=== PATIENT | female | born 1940 | race Caucasian/White ===

== ENCOUNTER → 2017-10-13 10:22 | Outpatient (CLI) | payer MEDICARE, SELFPAY ==
--- NOTE | 2017-10-13 10:25 | HPBD_ITS ---
STUDY: DUAL ENERGY X-RAY ABSORPTIOMETRY / DXA REASON FOR EXAM: Female, 77 years old. The patient is postmenopausal. Loss of height of 4 inches. TECHNIQUE: Bone Mineral Density (BMD) measurements of lumbar spine and bilateral hips were obtained. COMPARISON: None. FINDINGS: Lumbar Spine (L1-L4): g/cm2 (1.293) / T-score (0.8) / Z-score (2.6) Findings are suggestive of normal bone density with a low fracture risk. Left Femur Total: g/cm2 (0.986) / T-score (-0.2) / Z-score (1.7) Left Femoral Neck: g/cm2 (1.009) / T-score (-0.2) / Z-score (1.8) Right Femur Total: g/cm2 (1.005) / T-score (0.0) / Z-score (1.8) Right Femoral Neck: g/cm2 (0.970) / T-score (-0.5) / Z-score (1.5) HPBD/Dexa Bone Density Study (HP) IMPRESSION: The patient is considered normal as outlined below according to World Luis Organization (WHO) criteria with a low fracture risk. Reference Information: The T-score is the number of standard deviations above or below the standard which is normal for young adults at their peak bone mineral density. The World Health Organization (WHO) interprets the T-scores as follows: Above -1 Normal bone density Between -1 and -2.5 Osteopenia Equal to / or below -2.5 Osteoporosis As a practical clinical guideline, osteopenia may be graded as follows: Mild -1 through -1.5 Moderate -1.6 through -2.0 Severe -2.1 through -2.4 The Z-score is the number of standard deviations above or below age-matched controls. A Z-score of less than -1.5 would be considered abnormal. References: 1. NIH Osteoporosis and Related Bone Diseases http://www.osteo.org 2. International Society for Clinical Densitometry http://www.iscd.org 3. National Osteoporosis Foundation http://www.nof.org Electronically Signed: Raf Torres MD at 15:21 EST Tel [phone], Service support ,
== END ==
PROVIDERS: Family Provider Family Medicine Geriatric Medicine; PCP Family Medicine Geriatric Medicine; Visit Provider Family Medicine Geriatric Medicine
DX: Z78.0 Asymptomatic menopausal state (principal)
CPT/HCPCS: 77080

== ENCOUNTER → 2017-11-01 14:43 | Outpatient (CLI) | payer MEDICARE, SELFPAY ==
[2017-11-01 17:31] LABS: Absolute Neutrophil Count 4.5 X10^3/uL (2.0-7.7); Basophil# 0.02 X10^3/uL; Basophil% 0.3 % (0-1); Eosinophil# 0.07 X10^3/uL; Eosinophils% 1.1 % (0-5); Hematocrit 38.1 % (37-47); Hemoglobin 12.2 g/dl (12.0-15.0); Lymphocyte % 19.3 % (19-41); Mean Corpuscular Hgb 30.3 pg (27.0-32.0); Mean Corpuscular Volume 94.8 fL (81-99); Mean Platelet Vol. 10.3 fl (6.2-12.0); Monocyte# 0.44 X10^3/uL; Monocyte% 7.1 % (0-10); Neutrophil # 4.46 X10^3/uL (2.7-7.7); Neutrophil % 71.9 % (47-70); Platelet Count 295 K/mm3 (150-450); RBC Distribution Width CV 14.2 % (11.6-14.6); RBC Distribution Width SD 47.8 fl (35.1-43.9); Red Blood Count 4.02 M/mm3 (4.2-5.4); White Blood Count 6.2 K/mm3 (4.4-11.0)
[2017-11-01 17:45] LABS: POSITIVE COUNT NO; POSITIVE DIFFERENTIAL NO; POSITIVE MORPHOLOGY NO
[2017-11-01 17:46] LABS: Vitamin D,25 Hydroxy 35.5 ng/mL (29.95-100.01)
[2017-11-01 17:49] LABS: ALB/GLOB Ratio 0.9 RATIO (0.9-2.4); AST(SGOT) 24 U/L (15-37); Alanine Aminotransfer ALT/SGPT 31 U/L (13-56); Albumin, Serum 3.4 g/dL (3.2-5.0); Alkaline Phosphatase 76 U/L (45-117); Anion Gap 9 (5-15); BUN 16 mg/dL (7-18); Calcium,Total 8.7 mg/dL (8.5-10.1); Chloride 102 mmol/L (98-107); Creatinine, Serum 0.64 mg/dL (0.55-1.02); EST Glomerular Filtration Rate 96 mL/min (>60); Est Glom Filt Rate - Afr Amer 116 mL/min (>60); Globulin 3.6 g/dL (2.2-4.2); Glucose 102 mg/dL (74-106); Potassium 4.7 mmol/L (3.5-5.1); Sodium Level 138 mmol/L (136-145)
== END ==
PROVIDERS: Family Provider Family Medicine Geriatric Medicine; PCP Family Medicine Geriatric Medicine; Visit Provider Family Medicine Geriatric Medicine
DX: I10 Essential (primary) hypertension (principal); E55.9 Vitamin D deficiency, unspecified
CPT/HCPCS: 80053; 82306; 84443; 85025

== ENCOUNTER → 2017-11-09 15:18 | Outpatient (CLI) | payer MEDICARE, SELFPAY ==
--- NOTE | 2017-11-09 15:25 | RAD_ITS ---
STUDY: X-RAY - ABDOMEN/PELVIS REASON FOR EXAM: Female, 77 years old. DIARRHEA TECHNIQUE: AP supine and upright views of the abdomen and pelvis. COMPARISON: None. FINDINGS: Normal visualized lung bases. There are multiple metallic clips in the right upper quadrant. This is consistent for a cholecystectomy. Degenerative findings of the hips. There is a moderate amount of colonic fecal material. There is no demonstrated free abdominal air. The visualized liver, spleen and kidneys are grossly normal in size and morphology. Normal soft tissue structures. There are diffuse degenerative changes of the visualized lumbar spine. RAD/Abd Inc Decub and/or Erect IMPRESSION: Constipation. Degenerative findings of the hips. Electronically Signed: Juve Ferreira MD at 16:01 EDT , Service support ,
== END ==
PROVIDERS: Family Provider Family Medicine Geriatric Medicine; PCP Family Medicine Geriatric Medicine; Visit Provider Family Medicine Geriatric Medicine
DX: R19.7 Diarrhea, unspecified (principal); R68.83 Chills (without fever)
CPT/HCPCS: 74019; 87633

== ENCOUNTER → 2018-04-25 14:59 | Outpatient (CLI) | payer MEDICARE, SELFPAY ==
[2018-04-25 16:18] LABS: Absolute Lymphocyte Count 1.18 X10^3/ul (0.83-4.51); Absolute Neutrophil Count 3.3 X10^3/uL (2.0-7.7); Basophil# 0.03 X10^3/uL; Basophil% 0.6 % (0-1); Eosinophil# 0.11 X10^3/uL; Eosinophils% 2.2 % (0-5); Hematocrit 34.5 % (37-47); Lymphocyte # 1.18 X10^3/ul (4.0); Lymphocyte % 23.3 % (19-41); Mean Corp Hgb Conc 31.9 g/gl (32-36); Mean Corpuscular Hgb 28.1 pg (27.0-32.0); Mean Corpuscular Volume 88.2 fL (81-99); Mean Platelet Vol. 10.4 fl (6.2-12.0); Monocyte# 0.44 X10^3/uL; Monocyte% 8.7 % (0-10); Neutrophil # 3.29 X10^3/uL (2.7-7.7); Platelet Count 265 K/mm3 (150-450); RBC Distribution Width CV 15.1 % (11.6-14.6); RBC Distribution Width SD 48.4 fl (35.1-43.9); Red Blood Count 3.91 M/mm3 (4.2-5.4); White Blood Count 5.1 K/mm3 (4.4-11.0)
[2018-04-25 16:19] LABS: POSITIVE COUNT NO; POSITIVE DIFFERENTIAL NO; POSITIVE MORPHOLOGY NO
[2018-04-25 16:39] LABS: Vitamin D,25 Hydroxy 33.4 ng/mL (29.95-100.01)
[2018-04-25 17:19] LABS: AST(SGOT) 27 U/L (15-37); Alanine Aminotransfer ALT/SGPT 26 U/L (13-56); Albumin, Serum 3.4 g/dL (3.2-5.0); Alkaline Phosphatase 83 U/L (45-117); Anion Gap 9 (5-15); BUN 14 mg/dL (7-18); BUN/Creat Ratio 24.7 RATIO (10-20); Calcium,Total 8.8 mg/dL (8.5-10.1); Chloride 105 mmol/L (98-107); Creatinine, Serum 0.57 mg/dL (0.55-1.02); EST Glomerular Filtration Rate 110 mL/min (>60); Est Glom Filt Rate - Afr Amer 133 mL/min (>60); Globulin 3.3 g/dL (2.2-4.2); Glucose 94 mg/dL (74-106); Potassium 4.4 mmol/L (3.5-5.1); Protein, Total 6.7 g/dL (6.4-8.2); Sodium Level 140 mmol/L (136-145); Thyroid Stim Hormone (TSH) 2.34 uIU/mL (0.358-3.74)
== END ==
PROVIDERS: Family Provider Family Medicine Geriatric Medicine; PCP Family Medicine Geriatric Medicine; Visit Provider Family Medicine Geriatric Medicine
DX: I10 Essential (primary) hypertension (principal); E55.9 Vitamin D deficiency, unspecified
CPT/HCPCS: 36415; 80053; 82306; 84443; 85025

== ENCOUNTER → 2018-08-03 16:56 | Outpatient (CLI) | payer MEDICARE, SELFPAY | PROVIDERS: Family Provider Family Medicine Geriatric Medicine; PCP Family Medicine Geriatric Medicine; Referring Provider Family Medicine Geriatric Medicine; Visit Provider Family Medicine Geriatric Medicine | DX: R68.83 Chills (without fever) (principal) | CPT/HCPCS: 87633 ==

== ENCOUNTER → 2018-10-24 11:46 | Outpatient (CLI) | payer MEDICARE, SELFPAY ==
[2018-10-24 12:52] LABS: Absolute Lymphocyte Count 0.97 X10^3/ul (0.83-4.51); Absolute Neutrophil Count 3.4 X10^3/uL (2.0-7.7); Basophil# 0.02 X10^3/uL; Basophil% 0.4 % (0-1); Eosinophil# 0.12 X10^3/uL; Eosinophils% 2.5 % (0-5); Hematocrit 35.3 % (37-47); Hemoglobin 10.8 g/dl (12.0-15.0); Lymphocyte # 0.97 X10^3/ul (4.0); Mean Corp Hgb Conc 30.6 g/gl (32-36); Mean Corpuscular Hgb 26.3 pg (27.0-32.0); Mean Corpuscular Volume 86.1 fL (81-99); Mean Platelet Vol. 9.8 fl (6.2-12.0); Monocyte# 0.39 X10^3/uL; Neutrophil # 3.35 X10^3/uL (2.7-7.7); Neutrophil % 68.9 % (47-70); Platelet Count 301 K/mm3 (150-450); RBC Distribution Width SD 47.5 fl (35.1-43.9); White Blood Count 4.9 K/mm3 (4.4-11.0)
[2018-10-24 12:53] LABS: POSITIVE COUNT NO; POSITIVE DIFFERENTIAL NO; POSITIVE MORPHOLOGY NO
[2018-10-24 13:09] LABS: Vitamin D,25 Hydroxy 37.3 ng/mL (29.95-100.01)
[2018-10-24 13:11] LABS: ALB/GLOB Ratio 0.9 RATIO (0.9-2.4); AST(SGOT) 24 U/L (15-37); Alanine Aminotransfer ALT/SGPT 30 U/L (13-56); Albumin, Serum 3.4 g/dL (3.2-5.0); Alkaline Phosphatase 77 U/L (45-117); Anion Gap 12 (5-15); BUN 17 mg/dL (7-18); BUN/Creat Ratio 28.6 RATIO (10-20); Calcium,Total 8.5 mg/dL (8.5-10.1); Chloride 105 mmol/L (98-107); Creatinine, Serum 0.59 mg/dL (0.55-1.02); EST Glomerular Filtration Rate 104 mL/min (>60); Est Glom Filt Rate - Afr Amer 126 mL/min (>60); Globulin 3.6 g/dL (2.2-4.2); Glucose 122 mg/dL (74-106); Potassium 3.9 mmol/L (3.5-5.1); Sodium Level 141 mmol/L (136-145); Thyroid Stim Hormone (TSH) 2.39 uIU/mL (0.358-3.74)
== END ==
PROVIDERS: Family Provider Family Medicine Geriatric Medicine; PCP Family Medicine Geriatric Medicine; Visit Provider Family Medicine Geriatric Medicine
DX: E55.9 Vitamin D deficiency, unspecified (principal); I10 Essential (primary) hypertension
CPT/HCPCS: 36415; 80053; 82306; 84443; 85025

== ENCOUNTER → 2018-12-06 | Outpatient (CLI) | payer MEDICARE, SELFPAY ==
--- NOTE | 2018-12-06 16:54 | RAD_ITS ---
STUDY: X-RAY - SKULL REASON FOR EXAM: Female, 78 years old. Possible calculus in the parotid TECHNIQUE: 5 view(s) of the skull were obtained. COMPARISON: None. FINDINGS: There is no demonstrated soft tissue swelling. Normal osseous calvarium. Normal visualized facial bones. Normal visualized paranasal sinuses. RAD/Skull min 4 Views IMPRESSION: Normal x-ray examination of the skull. Electronically Signed: Jonathan Cruz MD at 17:34 EDT , Service support ,
== END | disposition home or self-care (01) ==
PROVIDERS: Family Provider Family Medicine Geriatric Medicine; PCP Family Medicine Geriatric Medicine; Referring Provider Family Medicine Geriatric Medicine; Visit Provider Family Medicine Geriatric Medicine
DX: K11.20 Sialoadenitis, unspecified (principal)
CPT/HCPCS: 70260

== ENCOUNTER → 2019-04-26 | Outpatient (CLI) | payer MEDICARE, SELFPAY ==
[2019-04-26 12:34] LABS: Absolute Lymphocyte Count 0.82 X10^3/uL (0.83-4.51); Absolute Neutrophil Count 2.7 X10^3/uL (2.0-7.7); Basophil# 0.03 X10^3/uL; Basophil% 0.7 % (0-1); Eosinophil# 0.13 X10^3/uL; Eosinophils% 3.2 % (0-5); Hematocrit 35.9 % (37-47); Hemoglobin 11.1 g/dL (12.0-15.0); Lymphocyte # 0.82 X10^3/ul (4.0); Mean Corp Hgb Conc 30.9 g/dL (32-36); Mean Corpuscular Hgb 27.2 pg (27.0-32.0); Mean Platelet Vol. 10.2 fl (6.2-12.0); Monocyte# 0.37 X10^3/uL; NRBC Flagged by Analyzer 0 % (0-5); Neutrophil # 2.74 X10^3/uL (2.7-7.7); Neutrophil % 66.9 % (47-70); Platelet Count 254 K/mm3 (150-450); RBC Distribution Width CV 15.5 % (11.6-14.6); RBC Distribution Width SD 50.4 fl (35.1-43.9); Red Blood Count 4.08 M/mm3 (4.2-5.4); White Blood Count 4.1 K/mm3 (4.4-11.0)
[2019-04-26 12:53] LABS: Vitamin B12 489 pg/mL (211-911); Vitamin D,25 Hydroxy 47.5 ng/mL (29.95-100.01)
[2019-04-26 13:02] LABS: ALB/GLOB Ratio 0.9 RATIO (0.9-2.4); AST(SGOT) 29 U/L (15-37); Alanine Aminotransfer ALT/SGPT 28 U/L (13-56); Albumin, Serum 3.2 g/dL (3.2-5.0); Alkaline Phosphatase 84 U/L (45-117); Anion Gap 9 (5-15); BUN 17 mg/dL (7-18); BUN/Creat Ratio 28.4 RATIO (10-20); Calcium,Total 8.6 mg/dL (8.5-10.1); Chloride 106 mmol/L (98-107); EST Glomerular Filtration Rate 103 mL/min (>60); Est Glom Filt Rate - Afr Amer 124 mL/min (>60); Globulin 3.4 g/dL (2.2-4.2); Glucose 113 mg/dL (74-106); Potassium 4.1 mmol/L (3.5-5.1); Protein, Total 6.6 g/dL (6.4-8.2); Sodium Level 140 mmol/L (136-145); Thyroid Stim Hormone (TSH) 2.22 uIU/mL (0.358-3.74)
== END | disposition home or self-care (01) ==
LOC: POLAB3 10:56
PROVIDERS: Family Provider Family Medicine Geriatric Medicine; PCP Family Medicine Geriatric Medicine; Visit Provider Family Medicine Geriatric Medicine
DX: E55.9 Vitamin D deficiency, unspecified (principal); I10 Essential (primary) hypertension; E53.8 Deficiency of other specified B group vitamins
CPT/HCPCS: 36415; 80053; 82306; 82607; 84443; 85025

== ENCOUNTER 2019-07-03 12:30 | Outpatient (RCR) | payer MEDICARE, SELFPAY ==
--- NOTE | 2019-06-26 15:57 | HP.PTEVAL ---
Patient's Visit Information TORSTEN COLINDRES is a 79 year old F referred to Physical Therapy by Tommie Domínguez MD with a diagnosis of BPPV. Date of Evaluation: 06/26/19 Physical Therapist: Tommie Ochoa, DPT, OCS, CSCS - Visit Plan Frequency: 1-2x /Week Duration: 2-4 Weeks Plan: weekly x2-6 as needed for positional and balance treatments as needed. - Subjective Findings: Last Wednesday night went to bed and rolled to the left adn looked up and picture was waving up and down. Has had vertigo for 50 years. Can go for months with meclizine for months. Looked for answer for years. Went to family doctor for wobbly. Has seen Haylie before and did not go well. Crystals have been out intermittently. Will take Excedrin for migraines but this is different whcih helps wobbly. Vertigo started last Wednesday adn pictures moved. Similar to previous crystals episode. Rolled left adn same thing happened. Has happened in doctor office as well as if bends down to tie shoes adn look down. Getting it about a couple times per day going to bed.Lasts fro a few seconds. Can interrupt sleep in that way. Not employed. Activities are slow but getting done. Not driving because of this. Using wh walker since last Wednesday but did nto need it prior. - Objective Walks hesitantly but mod I with wh walker. Is slow and unsteady without AD. Transfers I. C/S AROM WFL and without pain but slow hesitant movement. - L hallpike iban. + R Hallpike for quick up torsional nystagmus, treated wtih R Michele maneuver. - Balance Scores Functional Gait Assessment Score: 10 % Disability: 66.6700 - Goals Goal 1:: Abolish vertigo 100% Goal Time Frame: 2-4 Weeks Goal 2:: FGA to reduce fall risk Goal 3:: Pt feel back to nromal activities and sleeping. Goal Time Frame: 4-6 Weeks - Rehabilitation Potential Physical Therapy Diagnosis: R psot canal BPPV Rehabilitation Potential: Good - Anticipated Interventions Patient/Client Instruction: Educate patient on: Condition, Plan of Care For the Purpose of:: To increase tolerance to activity/condition/position Therapeutic Exercise to Include: Balance training Comment: positional For the Purpose of:: To increase tolerance to activity/condition/position Thank you for the opportunity to evaluate your patient. For Medicare and Medicare HMO plans, please review the plan of care and approve it. It will need to be FAXED BACK to us at [phone] for Medicare purposes. For Medicare only, by signing this I certify the plan of care. Please let me know if there are questions or concerns regarding this plan of care. Physician Signature: Date:
--- NOTE | 2019-08-24 09:48 | HP.PT.NRP ---
HP - Discharge Summary (1) - Patient Information TORSTEN COLINDRES was seen in my office for initial evaluation on 06/26/19. The following Plan of Care was established for this patient: Initial Frequency: 1-2x /Week Initial Duration: 2-4 Weeks - Anticipated Interventions Patient/Client Instruction: Educate patient on: Condition, Plan of Care For the Purpose of:: To increase tolerance to activity/condition/position Therapeutic Exercise to Include: Balance training For the Purpose of:: To increase tolerance to activity/condition/position This patient was last seen in our office 07/03/19. Pertinent comments regarding their Physical therapy will appear below: Pt seen two visits of POC adn was treated with positional treatments. She was doing much better at her last visit and was to f/u two weeks later to ensure abolishment. She did not schedule or attend that visit. At this point, I will discontinue due to nonattendance. At this point I will be discontinuing this patient from physical therapy. I would be happy to see this patient again in the future if found appropriate by the physician. Thank you! Tommie Ochoa, DPT, OCS, CSCS
== END 2019-07-03 19:00 | disposition home or self-care (01) ==
LOC: PT 12:30
PROVIDERS: Family Provider Family Medicine Geriatric Medicine; PCP Family Medicine Geriatric Medicine; Referring Provider Otolaryngology; Visit Provider Otolaryngology
DX: H81.11 Benign paroxysmal vertigo, right ear (principal)
CPT/HCPCS: 97161; 97530

== ENCOUNTER → 2019-10-25 | Outpatient (CLI) | payer MEDICARE, SELFPAY ==
[2019-10-25 11:38] LABS: Absolute Lymphocyte Count 0.91 X10^3/uL (0.83-4.51); Absolute Neutrophil Count 3.5 X10^3/uL (2.0-7.7); Basophil# 0.05 X10^3/uL; Eosinophils% 3.9 % (0-5); Hematocrit 41.1 % (37-47); Hemoglobin 13.2 g/dL (12.0-15.0); Lymphocyte # 0.91 X10^3/ul (4.0); Lymphocyte % 17.9 % (19-41); Mean Corp Hgb Conc 32.1 g/dL (32-36); Mean Corpuscular Volume 93.4 fL (81-99); Mean Platelet Vol. 9.5 fl (6.2-12.0); Monocyte# 0.42 X10^3/uL; Monocyte% 8.3 % (0-10); NRBC Flagged by Analyzer 0 % (0-5); Neutrophil # 3.48 X10^3/uL (2.7-7.7); Neutrophil % 68.5 % (47-70); Platelet Count 240 K/mm3 (150-450); RBC Distribution Width CV 14.1 % (11.6-14.6); RBC Distribution Width SD 47.6 fl (35.1-43.9); White Blood Count 5.1 K/mm3 (4.4-11.0)
[2019-10-25 12:19] LABS: AST(SGOT) 38 U/L (15-37); Alanine Aminotransfer ALT/SGPT 51 U/L (13-56); Albumin, Serum 3.4 g/dL (3.2-5.0); Alkaline Phosphatase 92 U/L (45-117); Anion Gap 4 (5-15); BUN 13 mg/dL (7-18); BUN/Creat Ratio 19.7 RATIO (10-20); Calcium,Total 8.8 mg/dL (8.5-10.1); Chloride 108 mmol/L (98-107); Creatinine, Serum 0.66 mg/dL (0.55-1.02); EST Glomerular Filtration Rate 92 mL/min (>60); Est Glom Filt Rate - Afr Amer 111 mL/min (>60); Globulin 3.5 g/dL (2.2-4.2); Glucose 152 mg/dL (74-106); Potassium 3.8 mmol/L (3.5-5.1); Protein, Total 6.9 g/dL (6.4-8.2); Sodium Level 140 mmol/L (136-145); Thyroid Stim Hormone (TSH) 2.07 uIU/mL (0.358-3.74)
[2019-10-25 16:23] LABS: Hemoglobin A1c 5.9 % (4.2-6.3)
[2019-10-28 08:01] LABS: Vitamin D,25 Hydroxy 48.8 ng/mL
== END | disposition home or self-care (01) ==
PROVIDERS: PCP Family Medicine Geriatric Medicine; Visit Provider Family Medicine Geriatric Medicine
DX: E55.9 Vitamin D deficiency, unspecified (principal); I10 Essential (primary) hypertension; E88.81 Metabolic syndrome and other insulin resistance
CPT/HCPCS: 36415; 80053; 82306; 83036; 84443; 85025

== ENCOUNTER → 2020-05-01 | Outpatient (CLI) | payer MEDICARE, SELFPAY ==
[2020-05-01 12:27] LABS: Absolute Lymphocyte Count 0.91 X10^3/uL (0.83-4.51); Absolute Neutrophil Count 3.4 X10^3/uL (2.0-7.7); Basophil# 0.04 X10^3/uL; Basophil% 0.8 % (0-1); Eosinophil# 0.07 X10^3/uL; Eosinophils% 1.4 % (0-5); Hemoglobin 12.2 g/dL (12.0-15.0); Lymphocyte # 0.91 X10^3/ul (4.0); Lymphocyte % 18.6 % (19-41); Mean Corp Hgb Conc 32.1 g/dL (32-36); Mean Corpuscular Hgb 30.2 pg (27.0-32.0); Mean Corpuscular Volume 94.1 fL (81-99); Mean Platelet Vol. 10.3 fl (6.2-12.0); Monocyte# 0.43 X10^3/uL; Monocyte% 8.8 % (0-10); NRBC Flagged by Analyzer 0 % (0-5); Neutrophil # 3.42 X10^3/uL (2.7-7.7); Platelet Count 277 K/mm3 (150-450); RBC Distribution Width CV 13.2 % (11.6-14.6); RBC Distribution Width SD 45.6 fl (35.1-43.9); Red Blood Count 4.04 M/mm3 (4.2-5.4); White Blood Count 4.9 K/mm3 (4.4-11.0)
[2020-05-01 12:50] LABS: Vitamin D,25 Hydroxy 48.7 ng/mL
[2020-05-01 12:53] LABS: AST(SGOT) 29 U/L (15-37); Alanine Aminotransfer ALT/SGPT 33 U/L (13-56); Albumin, Serum 3.4 g/dL (3.2-5.0); Alkaline Phosphatase 90 U/L (45-117); Anion Gap 5 (5-15); BUN 10 mg/dL (7-18); BUN/Creat Ratio 18.8 RATIO (10-20); Calcium,Total 9.1 mg/dL (8.5-10.1); Chloride 105 mmol/L (98-107); Creatinine, Serum 0.53 mg/dL (0.55-1.02); EST Glomerular Filtration Rate 117 mL/min (>60); Est Glom Filt Rate - Afr Amer 142 mL/min (>60); Globulin 3.5 g/dL (2.2-4.2); Glucose 120 mg/dL (74-106); Protein, Total 6.9 g/dL (6.4-8.2); Sodium Level 137 mmol/L (136-145); Thyroid Stim Hormone (TSH) 2.74 uIU/mL (0.358-3.74)
== END | disposition home or self-care (01) ==
LOC: POLAB3 11:31
PROVIDERS: PCP Family Medicine Geriatric Medicine; Visit Provider Family Medicine Geriatric Medicine
DX: E55.9 Vitamin D deficiency, unspecified (principal); I10 Essential (primary) hypertension
CPT/HCPCS: 36415; 80053; 82306; 84443; 85025

== ENCOUNTER → 2020-05-07 | Outpatient (CLI) | payer MEDICARE, SELFPAY ==
--- NOTE | 2020-05-07 | LES_PTH ---
PATIENT: TORSTEN COLINDRES LOC: [facility] U#:[id number] AGE/SX: 80/F ROOM: RE05/07/[address]: Dr. Leandro Lua MD : 1940 BED: DIS: 05/07/2020 SPEC #: [id number] RECD: 05/07/20 17:22 STATUS: NAYELI ROMINA #: [id number] SUSAN: 05/07/20 00:[address]: Leandro Lua Chi DEPT: SURGICAL PATHOLOGY RECD BY: Elder Haile Tissues: Skin of face, NOS Procedures: Surgery Specimen Level IV HEADER OPERATION: Shave biopsy PRE-OP DIAGNOSIS: L81.9 TISSUE SUBMITTED: Right cheek MICROSCOPIC DIAGNOSIS Skin lesion of right cheek, shave biopsy: Actinic change, solar elastosis and mild chronic inflammation. No evidence of malignancy. Demodex folliculorum. AM:alida 05/09/20 MICROSCOPIC DESCRIPTION Slides are reviewed. GROSS DESCRIPTION Received in fixative is one container labeled with the patient's name and designated right cheek. The specimen consists of a shave biopsy of negron-white skin measuring 0.7 x 0.5 x 0.1 cm. The specimen is inked and submitted entirely in one cassette. It will be sectioned at the time of embedding. / SJ:alida 05/08/20 TC:5 CPT: 71854
== END | disposition home or self-care (01) ==
PROVIDERS: PCP Family Medicine Geriatric Medicine; Visit Provider Family Medicine Geriatric Medicine
DX: L81.9 Disorder of pigmentation, unspecified (principal)
CPT/HCPCS: 88305

== ENCOUNTER → 2020-07-01 | Outpatient (CLI) | payer MEDICARE, SELFPAY | END | disposition home or self-care (01) | LOC: LABSPEC 17:52 | PROVIDERS: PCP Family Medicine Geriatric Medicine; Referring Provider Family Medicine Geriatric Medicine; Visit Provider Family Medicine Geriatric Medicine | DX: R06.89 Other abnormalities of breathing (principal) | CPT/HCPCS: 87633; 87635; C9803; U0003 ==

== ENCOUNTER → 2020-07-08 | Outpatient (CLI) | payer MEDICARE, SELFPAY | END | disposition home or self-care (01) | PROVIDERS: PCP Family Medicine Geriatric Medicine; Referring Provider Family Medicine Geriatric Medicine; Visit Provider Family Medicine Geriatric Medicine | DX: N39.0 Urinary tract infection, site not specified (principal) | CPT/HCPCS: 87086; 87088 ==

== ENCOUNTER → 2020-10-30 11:55 | Outpatient (CLI) | payer MEDICARE, SELFPAY ==
[2020-10-30 12:40] LABS: Absolute Lymphocyte Count 1.01 X10^3/uL (0.83-4.51); Absolute Neutrophil Count 3.2 X10^3/uL (2.0-7.7); Basophil# 0.04 X10^3/uL; Basophil% 0.8 % (0-1); Eosinophil# 0.11 X10^3/uL; Eosinophils% 2.3 % (0-5); Hematocrit 37.8 % (37-47); Hemoglobin 12.2 g/dL (12.0-15.0); Lymphocyte # 1.01 X10^3/ul (4.0); Lymphocyte % 21.1 % (19-41); Mean Corp Hgb Conc 32.3 g/dL (32-36); Mean Corpuscular Hgb 31.3 pg (27.0-32.0); Mean Corpuscular Volume 96.9 fL (81-99); Mean Platelet Vol. 9.6 fl (6.2-12.0); Monocyte# 0.41 X10^3/uL; Monocyte% 8.6 % (0-10); NRBC Flagged by Analyzer 0 % (0-5); Neutrophil # 3.19 X10^3/uL (2.7-7.7); Neutrophil % 66.6 % (47-70); Platelet Count 254 K/mm3 (150-450); RBC Distribution Width CV 13.9 % (11.6-14.6); RBC Distribution Width SD 49.2 fl (35.1-43.9); White Blood Count 4.8 K/mm3 (4.4-11.0)
[2020-10-30 13:12] LABS: Vitamin D,25 Hydroxy 30.5 ng/mL
[2020-10-30 13:25] LABS: AST(SGOT) 27 U/L (15-37); Alanine Aminotransfer ALT/SGPT 39 U/L (13-56); Albumin, Serum 3.3 g/dL (3.2-5.0); Alkaline Phosphatase 78 U/L (45-117); Anion Gap 3 (5-15); BUN 13 mg/dL (7-18); Calcium,Total 8.8 mg/dL (8.5-10.1); Chloride 104 mmol/L (98-107); Creatinine, Serum 0.62 mg/dL (0.55-1.02); EST Glomerular Filtration Rate 98 mL/min (>60); Est Glom Filt Rate - Afr Amer 119 mL/min (>60); Globulin 3.3 g/dL (2.2-4.2); Glucose 105 mg/dL (74-106); Potassium 4.1 mmol/L (3.5-5.1); Protein, Total 6.6 g/dL (6.4-8.2); Sodium Level 137 mmol/L (136-145); Thyroid Stim Hormone (TSH) 2.77 uIU/mL (0.358-3.74)
== END ==
PROVIDERS: PCP Family Medicine Geriatric Medicine; Visit Provider Family Medicine Geriatric Medicine
DX: E55.9 Vitamin D deficiency, unspecified (principal); I10 Essential (primary) hypertension
CPT/HCPCS: 36415; 80053; 82306; 84443; 85025

== ENCOUNTER → 2020-11-05 13:18 | Outpatient (CLI) | payer MEDICARE, SELFPAY ==
--- NOTE | 2020-11-05 13:22 | CT_ITS ---
STUDY: CT PARANASAL SINUSES REASON FOR EXAM: Female, 80 years old. Chronic ethmoid sinusitis. RADIATION DOSAGE (If Supplied By Facility): CTDIvol = ( 33.06 ) mGy, DLP = ( 759.47 ) mGycm TECHNIQUE: Axial CT images of the paranasal sinuses were obtained. Multiplanar reconstructions. The protocol utilizes one or more of the following dose reduction techniques: automated exposure control, adjustment of mA and/or kV according to patient size, and/or use of iterative reconstruction technique. reconstructed. Individualized dose optimization techniques were used for this CT. COMPARISON: No relevant priors. FINDINGS: Post Surgical Changes: None. Frontal Sinus and Recess: Normal aeration without mucosal inflammatory disease. Ethmoidal Sinuses: Normal aeration without mucosal inflammatory disease. Maxillary Sinuses: Normal aeration without mucosal inflammatory disease. Ostiomeatal Complex: Clear. Sphenoid Sinus: Normal aeration without mucosal inflammatory disease. Sphenoethmoidal Recess: Clear. Nasal Turbinate (Right): Middle Turbinate (Right): Normal. Middle Turbinate (Left): Normal. Inferior Turbinate (Right): Normal. Inferior Turbinate (Left): Normal. Nasal Septum: Midline. Nasal Airway: Clear. Cribiform Plate / Anterior Cranial Fossa: Normal. Orbits: Normal. CT/Sinus/Facial Bone IMPRESSION: Normal CT examination of the paranasal sinuses. Electronically Signed: Raf Torres MD at 13:54 EDT , Service support ,
== END ==
PROVIDERS: PCP Family Medicine Geriatric Medicine; Referring Provider Otolaryngology; Visit Provider Otolaryngology
DX: J32.2 Chronic ethmoidal sinusitis (principal)
CPT/HCPCS: 70486

== ENCOUNTER → 2021-02-24 14:45 | Outpatient (CLI) | payer MEDICARE, SELFPAY ==
--- NOTE | 2021-02-24 14:46 | CT_ITS ---
EXAM: CT HEAD WITHOUT INTRAVENOUS CONTRAST : 1940 CLINICAL INDICATION: DIZZINESS TECHNIQUE: Multiple axial images were obtained of the head without intravenous contrast. This CT exam was performed using one or more of the following dose reduction techniques: automated exposure control, adjustment of the mA and/or kV according to patient size, and/or use of iterative reconstruction technique. This report was created using [employer] report generation technology. COMPARISON: None. FINDINGS: BRAIN AND EXTRA-AXIAL SPACES: Unremarkable. No intra- or extra-axial hemorrhage. No evidence of acute infarct. No intracranial mass or mass effect. There is preservation of the gonzales/white matter interface. Posterior fossa structures are unremarkable. Ventricles are appropriate for age. No hydrocephalus. Basal cisterns are patent. BONES/JOINTS: Unremarkable. No discrete lytic or blastic abnormalities. SINUSES: Unremarkable as visualized. Clear. MASTOID AIR CELLS: Unremarkable. Clear. ORBITS: Visualized globes, extraocular muscles, optic nerves and retrobulbar fat appear unremarkable. CT/Brain/Head without Contrast IMPRESSION: Negative head/brain CT without intravenous contrast. Individualized dose optimization techniques were used for this CT. at 1557 Reported and signed by: Luis Eduardo Magdaleno MD Electronically Signed: Luis Eduardo Magdaleno MD at 15:56 EDT Tel , Service support ,
--- NOTE | 2021-02-24 14:46 | CT_ITS ---
EXAM: CT MAXILLOFACIAL WITHOUT INTRAVENOUS CONTRAST : 1940 CLINICAL INDICATION: DIZZINESS TECHNIQUE: Helically acquired images were obtained of the face without intravenous contrast. This CT exam was performed using one or more of the following dose reduction techniques: automated exposure control, adjustment of the mA and/or kV according to patient size, and/or use of iterative reconstruction technique. This report was created using [employer] report generation technology. COMPARISON: None. FINDINGS: BONES/JOINTS: Unremarkable. No displaced fracture. No discrete lytic or blastic abnormalities. SOFT TISSUES: Unremarkable. No focal subcutaneous swelling. No discrete fluid collections. ORBITS: Unremarkable. Both globes are unremarkable. Extraocular muscles are normal. Retrobulbar fat appears unremarkable. SINUSES: Unremarkable as visualized. Clear. MASTOID AIR CELLS: Unremarkable as visualized. Clear. DENTAL: No acute findings. No periodontal osseous erosion. CT/Sinus/Facial Bone IMPRESSION: Negative CT facial bones without intravenous contrast. Individualized dose optimization techniques were used for this CT. at 1559 Reported and signed by: Luis Eduardo Magdaleno MD Electronically Signed: Luis Eduardo Magdaleno MD at 15:58 EDT Tel , Service support ,
[2021-02-24 15:20] LABS: Absolute Lymphocyte Count 0.93 X10^3/uL (0.83-4.51); Absolute Neutrophil Count 3.4 X10^3/uL (2.0-7.7); Basophil# 0.04 X10^3/uL; Basophil% 0.8 % (0-1); Eosinophil# 0.09 X10^3/uL; Eosinophils% 1.8 % (0-5); Hematocrit 36.8 % (37-47); Hemoglobin 11.7 g/dL (12.0-15.0); Lymphocyte # 0.93 X10^3/ul (0.83-4.51); Lymphocyte % 18.7 % (19-41); Mean Corp Hgb Conc 31.8 g/dL (32-36); Mean Corpuscular Hgb 29.8 pg (27.0-32.0); Mean Corpuscular Volume 93.9 fL (81-99); Mean Platelet Vol. 10.4 fl (6.2-12.0); Monocyte# 0.49 X10^3/uL; Monocyte% 9.9 % (0-10); NRBC Flagged by Analyzer 0 % (0-5); Neutrophil # 3.39 X10^3/uL (2.7-7.7); Neutrophil % 68.2 % (47-70); Platelet Count 261 K/mm3 (150-450); RBC Distribution Width SD 47.8 fl (35.1-43.9); Red Blood Count 3.92 M/mm3 (4.2-5.4)
[2021-02-24 15:43] LABS: AST(SGOT) 27 U/L (15-37); Alanine Aminotransfer ALT/SGPT 30 U/L (13-56); Albumin, Serum 3.3 g/dL (3.2-5.0); Alkaline Phosphatase 83 U/L (45-117); Anion Gap 6 (5-15); BUN 15 mg/dL (7-18); BUN/Creat Ratio 30.2 RATIO (10-20); Calcium,Total 8.6 mg/dL (8.5-10.1); Chloride 102 mmol/L (98-107); EST Glomerular Filtration Rate 127 mL/min (>60); Est Glom Filt Rate - Afr Amer 154 mL/min (>60); Globulin 3.2 g/dL (2.2-4.2); Glucose 89 mg/dL (74-106); Magnesium 2.2 mg/dL (1.6-2.6); Potassium 3.9 mmol/L (3.5-5.1); Protein, Total 6.5 g/dL (6.4-8.2); Sodium Level 137 mmol/L (136-145); Thyroid Stim Hormone (TSH) 2.25 uIU/mL (0.358-3.74)
== END ==
PROVIDERS: PCP Family Medicine Geriatric Medicine; Referring Provider Family Medicine Geriatric Medicine; Visit Provider Family Medicine Geriatric Medicine
DX: E83.49 Other disorders of magnesium metabolism (principal); R53.1 Weakness; R42 Dizziness and giddiness
CPT/HCPCS: 36415; 70450; 70486; 80053; 83735; 84443; 85025

== ENCOUNTER 2021-02-26 09:32 | Emergency (ER) | payer MEDICARE, SELFPAY ==
[2021-02-26 09:35] VITALS: BP 142/65; PULSE 69; RESP 16; TEMP 36.1; O2SAT 91; BMI 39.9
--- NOTE | 2021-02-26 09:58 | MRI_ITS ---
HISTORY: vertigo. TECHNIQUE: Multiplanar and multisequence MR images of the brain were obtained without gadolinium. # of images incl. paperwork: [id number]. COMPARISON: CT 02/24/2021. FINDINGS: BRAIN PARENCHYMA: Mild T2 FLAIR hyperintense signal in the bilateral cerebral white matter. No abnormal focus of restricted diffusion. INTRACRANIAL HEMORRHAGE: No acute intracranial hemorrhage. CSF SPACES: Mild generalized volume loss. No midline shift or other significant mass effect. No extra-axial fluid collection. VASCULAR SYSTEM: Major intracranial flow-voids maintained. ORBITS: Bilateral lens resections. PARANASAL SINUSES AND MASTOID AIR CELLS: Clear. MRI/Brain without Contrast IMPRESSION: No evidence for acute infarct. Chronic small vessel ischemic gliosis. at 1320 Reported and signed by: Sue Wright MD Electronically Signed: Sue Wright MD at 13:18 EDT Tel , Service support ,
--- NOTE | 2021-02-26 10:52 | EDS_ITS ---
HPI History of Present Illness Chief Complaint: Dizziness Informant: patient Onset/Context/Timing Onset: Weeks (1.5) Context: Gradual Onset Timing: Continuous Quality: Movement, off balance Location: Head Current Severity: Mild Maximum Severity: Moderate Relieved by: Meclizine some Narrative Narrative: Patient having dizziness that feels like a sensation of movement of being off balance for the past 1.5 weeks. It is better when she rests and worse when she turns her head and changes position. It has been fairly constant. She was seen several times by her PCP recently, had a CT of the head and sinuses that was negative and before that was treated empirically with some antibiotics and other medications for possible congestion, sinusitis. She has some hearing disturbance and cannot lateralize it, but no tinnitus or pain in her ears. She denies any focal neurologic symptoms. She has had some headaches off and on but nothing severe or thunderclap. No loss of consciousness. She states she has had vertigo in the past where it has been yonathan severe spinning, and this is not like that. She also has not been lightheaded or faint, and had orthostatics in the office that were negative. She was sent here by her PCP so that we could try to get an MRI since he tried to rule out central vertigo from ischemic origin as an outpatient but was unable to obtain a stat MRI as desired. The patient denies any other new symptoms, she has had some nausea off and on and has that now. She has been taking meclizine for this, it has been helping a little. It usually helps her regular vertigo when she has that more. [facility] Medical History (Updated 02/26/21 @ 14:[address] Jorge Luis Mccullough MD) BPPV (benign paroxysmal positional vertigo) Compression fracture of L1 lumbar vertebra Constipation GERD (gastroesophageal reflux disease) Hypertension Home Medications metoprolol succinate 25 mg PO DAILY 08/24/16 [History Last Taken 03/18/17 09:08] hydrochlorothiazide 12.5 mg PO DAILY 03/18/17 [History Last Taken 03/18/17 14:00] acetaminophen 1,000 mg PO Q8H PRN PRN tab 04/02/17 [Rx Last Taken Unknown] meclizine 12.5 mg PO TID #90 04/02/17 [Rx Last Taken Unknown] menthol-zinc oxide [Calmoseptine] 1 applic TOPICAL 00,2200 #1 tube 04/02/17 [Rx Last Taken Unknown] nystatin [Nyamyc] 1 applic TOPICAL 0600,2200 #1 bottle 04/02/17 [Rx Last Taken Unknown] ondansetron 4 mg PO Q8H PRN PRN #90 tab 04/02/17 [Rx Last Taken Unknown] pantoprazole 40 mg PO DAILY #30 tab 04/02/17 [Rx Last Taken Unknown] polyethylene glycol 3350 17 g PO Q48H #30 packet 04/02/17 [Rx Last Taken Unknown] tramadol 50 mg PO Q6H PRN PRN #60 04/02/17 [Rx Last Taken Unknown] Allergy/AdvReac Type Severity Reaction Status Date / Time polymyxin B Allergy Swelling Verified 02/26/21 09:35 levofloxacin [From Levaquin] AdvReac Diarrhea Verified 02/26/21 09:35 phenylephrine AdvReac Other Verified 02/26/21 09:35 [From Sudafed PE] NEUROXIN Allergy Shortness Uncoded 02/26/21 09:35 of breath Social History Smoking Status: Former smoker ROS ROS ED Constitutional Constitutional ED: Denies chills or fever(s) Eyes Eyes: Denies change in vision or diplopia ENT ENT ED: Reports as per HPI, abnormal hearing and disequillibrium; Denies rhinorrhea, sinus pain, sinus pressure, sore throat, throat swelling or tinnitus Cardiovascular Cardiovascular: Reports edema; Denies chest pain or palpitations Respiratory/Chest Respiratory/Chest: Denies cough or dyspnea Gastrointestinal Gastrointestinal: Reports nausea; Denies abdominal pain, diarrhea or vomiting Genitourinary Genitourinary ED: Denies dysuria or hematuria Musculoskeletal Musculoskeletal: Denies back pain or neck pain Integumentary Denies abscess or rash Neurologic Neurologic: Reports as per HPI, headache(s) and vertigo; Denies paresthesias or weakness Psychiatric Psychiatric: Denies anxiety or suicidal thoughts EXAM Physical Exam Const Vital Signs: 02/26/21 09:35 Temperature 96.9 F L Temperature Source Temporal Pulse Rate 69 Respiratory Rate 16 Blood Pressure 142/65 H Blood Pressure Mean 90 Pulse Ox 91 Oxygen Delivery Method Room Air Positive well nourished and well developed General Appearance ED: well developed and NAD HEENT Reports EAC's normal, TM's clear and moist mucous membranes normocephalic and atraumatic Tympanic Membrane ED: Yes TM's clear Eyes PERRL and EOMs intact bilaterally Neck full ROM, no lymphadenopathy and supple Resp normal respiratory effort and clear to auscultation bilaterally Cardio regular rate, regular rhythm and no murmurs GI non-tender and non-distended Auscultation: normoactive bowel sounds Palpation: soft Back/Spine no CVA tenderness General Back: other FROM Extremity Extremity Narrative: Mild edema to the knees both lower extremities and signs of chronic stasis. General Extremety ED: Yes edema; Negative for pulses abnormal or tenderness General Extremity: edema; Negative for pulses abnormal Neuro oriented x3, CN's II-XII intact bilaterally and no sensory deficits noted Neuro Narrative: Normal [id number] bilaterally. Not able to perform lifz-we-oils due to knee problems and edematous legs Sensorium / Orientation: awake and alert Motor Exam: strength 5/5 throughout Skin no rashes or lesions noted and no wounds MDM MDM MDM Narrative Medical decision making narrative: Patient recently had a negative CT brain and blood work that was unremarkable that was 2 days ago and I do not think that needs to be repeated. Her symptoms are no different. I think it is reasonable to obtain an MRI, since she has no other reason to be admitted to the hospital and she is here during business hours when contract technician is here and the ana e is available, a stat MRI brain is ordered. Patient needed to wait for about 2 hours before the machine would be available for that, so she was given meclizine after she passed a bedside swallow eval. MRI brain returned unremarkable. Discussed with Dr. Lua, he is comfortable with the patient going home as [place]. I advised the patient to follow-up with her doctor and I think it would also be reasonable for her to follow-up with her learning technologies specialist, certainly this is not BPPV which gave her different symptoms, she may have labyrinthitis. Since she is no better after 1.5 weeks I think it would be reasonable to follow-up with specialist. Radiography Diagnostic Testing: Radiology Impression Brain MRI 02/26/21 09:58 IMPRESSION: No evidence for acute infarct. Chronic small vessel ischemic gliosis. at 1320 Reported and signed by: Sue Wright MD Electronically Signed: Sue Wright MD at 13:18 EDT Tel , Service support , Discharge Plan Triage Chief Complaint: Dizziness ED Provider: Jorge Luis Mccullough Dx/Rx/DC Orders Clinical Impression: Acute labyrinthitis Instructions: ED Labyrinthitis Prescriptions: No Action metoprolol succinate 25 MG Tab.Er.24h 25 mg PO DAILY RF: 0 hydrochlorothiazide 12.5 MG tablet 12.5 mg PO DAILY RF: 0 polyethylene glycol 3350 17 GM Packet 17 g PO Q48H Qty: 30 RF: 0 acetaminophen 500 MG tablet 1,000 mg PO Q8H PRN PRN (Reason: Mild Pain ()) RF: 0 pantoprazole 40 MG tablet 40 mg PO DAILY Qty: 30 RF: 0 nystatin [Nyamyc] 1 APPLIC bottle 1 applic topical 0600,2200 Qty: 1 RF: 0 ondansetron 4 MG tablet 4 mg PO Q8H PRN PRN (Reason: NAUSEA) Qty: 90 RF: 0 menthol-zinc oxide [Calmoseptine] 1 APPLIC Tube 1 applic topical 0600,2200 Qty: 1 RF: 0 meclizine 12.5 MG tablet 12.5 mg PO TID Qty: 90 RF: 0 tramadol 50 MG tablet 50 mg PO Q6H PRN PRN (Reason: Pain) Qty: 60 RF: 0 Primary Care Provider: Leandro Lua Chi Referrals: Tommie Domínguez MD [STAFF PHYSICIAN] - (Call for appointment) Leandro Lua Chi, MD [Primary Care Provider] - (Call to see when they would like to follow-up with you) Disposition Disposition: Home, Self Care
[2021-02-26] MEDS: Meclizine HCl 25 MG Tablet PO (11:14)
[2021-02-26 14:25] VITALS: BP 131/44; PULSE 82; RESP 18; O2SAT 97
== END 2021-02-26 14:26 | disposition home or self-care (01) ==
PROVIDERS: Emergency Provider Emergency Medicine; PCP Family Medicine Geriatric Medicine
DX: H83.09 Labyrinthitis, unspecified ear (principal); K21.9 Gastro-esophageal reflux disease without esophagitis; I10 Essential (primary) hypertension; Z79.899 Other long term (current) drug therapy; Z87.891 Personal history of nicotine dependence
CPT/HCPCS: 70551; 99282

== ENCOUNTER → 2021-05-07 11:23 | Outpatient (CLI) | payer MEDICARE, SELFPAY ==
[2021-05-07 12:22] LABS: Absolute Lymphocyte Count 1.03 X10^3/uL (0.83-4.51); Absolute Neutrophil Count 3.1 X10^3/uL (2.0-7.7); Basophil# 0.05 X10^3/uL; Eosinophils% 4.2 % (0-5); Hematocrit 37.2 % (37-47); Lymphocyte # 1.03 X10^3/ul (0.83-4.51); Lymphocyte % 21.5 % (19-41); Mean Corp Hgb Conc 32.3 g/dL (32-36); Mean Corpuscular Hgb 29.2 pg (27.0-32.0); Mean Corpuscular Volume 90.5 fL (81-99); Mean Platelet Vol. 10.4 fl (6.2-12.0); Monocyte# 0.46 X10^3/uL; Monocyte% 9.6 % (0-10); NRBC Flagged by Analyzer 0 % (0-5); Neutrophil # 3.05 X10^3/uL (2.7-7.7); Neutrophil % 63.5 % (47-70); Platelet Count 278 K/mm3 (150-450); RBC Distribution Width CV 13.9 % (11.6-14.6); RBC Distribution Width SD 46.3 fl (35.1-43.9); Red Blood Count 4.11 M/mm3 (4.2-5.4); White Blood Count 4.8 K/mm3 (4.4-11.0)
[2021-05-07 12:37] LABS: Vitamin D,25 Hydroxy 48.6 ng/mL
[2021-05-07 12:50] LABS: ALB/GLOB Ratio 0.9 RATIO (0.9-2.4); AST(SGOT) 28 U/L (15-37); Alanine Aminotransfer ALT/SGPT 30 U/L (13-56); Albumin, Serum 3.2 g/dL (3.2-5.0); Alkaline Phosphatase 80 U/L (45-117); Anion Gap 6 (5-15); BUN 14 mg/dL (7-18); BUN/Creat Ratio 27.4 RATIO (10-20); Calcium,Total 8.7 mg/dL (8.5-10.1); Chloride 102 mmol/L (98-107); Creatinine, Serum 0.51 mg/dL (0.55-1.02); EST Glomerular Filtration Rate 123 mL/min (>60); Est Glom Filt Rate - Afr Amer 149 mL/min (>60); Globulin 3.6 g/dL (2.2-4.2); Glucose 94 mg/dL (74-106); Potassium 3.4 mmol/L (3.5-5.1); Protein, Total 6.8 g/dL (6.4-8.2); Sodium Level 136 mmol/L (136-145); Thyroid Stim Hormone (TSH) 2.92 uIU/mL (0.358-3.74)
== END ==
PROVIDERS: PCP Family Medicine Geriatric Medicine; Visit Provider Family Medicine Geriatric Medicine
DX: I10 Essential (primary) hypertension (principal); E55.9 Vitamin D deficiency, unspecified
CPT/HCPCS: 36415; 80053; 82306; 84443; 85025

== ENCOUNTER → 2021-05-22 09:25 | Outpatient (CLI) | payer MEDICARE, SELFPAY | PROVIDERS: PCP Family Medicine Geriatric Medicine; Referring Provider Family Medicine Geriatric Medicine; Visit Provider Family Medicine Geriatric Medicine | DX: R68.83 Chills (without fever) (principal) | CPT/HCPCS: 87635; 87804; 87807; C9803; U0005; U0003 ==

== ENCOUNTER → 2021-06-11 16:18 | Outpatient (CLI) | payer MEDICARE, SELFPAY ==
--- NOTE | 2021-06-11 16:45 | RAD_ITS ---
STUDY: X-RAY - ABDOMEN/PELVIS REASON FOR EXAM: Female, 81 years old. 3 day history of diarrhea. TECHNIQUE: AP supine and upright views of the abdomen and pelvis. COMPARISON: Comparison is made with prior study 11/09/2017. FINDINGS: Increased markings are seen at the left lung base suggestive of atelectasis. Moderate hiatal hernia. There is an unremarkable bowel gas pattern. There is no demonstrated free abdominal air. Surgical clips are seen in the right upper quadrant as well as in the left midabdomen. Anastomotic sutures are seen in the left midabdomen. Normal soft tissue structures. There are diffuse degenerative changes of the visualized lumbar spine. Osteoarthritis of both hip joints. RAD/Abd Inc Decub and/or Erect IMPRESSION: Nonspecific bowel gas pattern. Increased markings at the left lung base suggestive of atelectasis. Electronically Signed: Raf Torres MD at 13:02 EDT , Service support ,
[2021-06-11 17:18] LABS: Absolute Lymphocyte Count 1.29 X10^3/uL (0.83-4.51); Absolute Neutrophil Count 5.1 X10^3/uL (2.0-7.7); Basophil# 0.04 X10^3/uL; Basophil% 0.6 % (0-1); Eosinophil# 0.14 X10^3/uL; Eosinophils% 1.9 % (0-5); Hematocrit 39.8 % (37-47); Hemoglobin 12.6 g/dL (12.0-15.0); Lymphocyte # 1.29 X10^3/ul (0.83-4.51); Lymphocyte % 17.8 % (19-41); Mean Corp Hgb Conc 31.7 g/dL (32-36); Mean Corpuscular Hgb 29.1 pg (27.0-32.0); Mean Corpuscular Volume 91.9 fL (81-99); Mean Platelet Vol. 10.8 fl (6.2-12.0); Monocyte# 0.67 X10^3/uL; Monocyte% 9.3 % (0-10); NRBC Flagged by Analyzer 0 % (0-5); Neutrophil # 5.06 X10^3/uL (2.7-7.7); Neutrophil % 69.8 % (47-70); Platelet Count 245 K/mm3 (150-450); RBC Distribution Width CV 14.6 % (11.6-14.6); RBC Distribution Width SD 49.1 fl (35.1-43.9); Red Blood Count 4.33 M/mm3 (4.2-5.4); White Blood Count 7.2 K/mm3 (4.4-11.0)
[2021-06-11 17:33] LABS: Anion Gap 7 (5-15); BUN 20 mg/dL (7-18); BUN/Creat Ratio 33.7 RATIO (10-20); Calcium,Total 8.9 mg/dL (8.5-10.1); Chloride 101 mmol/L (98-107); Creatinine, Serum 0.59 mg/dL (0.55-1.02); EST Glomerular Filtration Rate 103 mL/min (>60); Est Glom Filt Rate - Afr Amer 125 mL/min (>60); Glucose 100 mg/dL (74-106); Potassium 4.5 mmol/L (3.5-5.1); Sodium Level 134 mmol/L (136-145)
== END ==
PROVIDERS: PCP Family Medicine Geriatric Medicine; Referring Provider Family Medicine Geriatric Medicine; Visit Provider Family Medicine Geriatric Medicine
DX: R10.9 Unspecified abdominal pain (principal); R19.7 Diarrhea, unspecified
CPT/HCPCS: 36415; 74019; 80048; 85025

== ENCOUNTER → 2021-06-12 09:13 | Outpatient (CLI) | payer MEDICARE, SELFPAY | PROVIDERS: PCP Family Medicine Geriatric Medicine; Visit Provider Family Medicine Geriatric Medicine | DX: R19.7 Diarrhea, unspecified (principal); R10.9 Unspecified abdominal pain | CPT/HCPCS: 82274; 83630; 87177; 87209; 87493; 87506 ==

== ENCOUNTER → 2021-07-02 11:27 | Outpatient (CLI) | payer MEDICARE, SELFPAY | PROVIDERS: PCP Family Medicine Geriatric Medicine; Referring Provider Family Medicine Geriatric Medicine; Visit Provider Family Medicine Geriatric Medicine | DX: R68.83 Chills (without fever) (principal) | CPT/HCPCS: 87635; 87804; 87807; C9803; U0005; U0003 ==

== ENCOUNTER 2021-09-16 14:34 | Outpatient (CLI) | payer MEDICARE, SELFPAY | END 2021-09-16 23:59 | disposition short-term general hospital (02) | LOC: POLAB3 14:35 | PROVIDERS: PCP Family Medicine Geriatric Medicine; Visit Provider Family Medicine Geriatric Medicine | DX: N39.0 Urinary tract infection, site not specified (principal) | CPT/HCPCS: 87077; 87086; 87088; 87186 ==

== ENCOUNTER 2021-09-30 17:36 | Outpatient (CLI) | payer MEDICARE, SELFPAY ==
--- NOTE | 2021-09-30 18:06 | RAD_ITS ---
STUDY: X-RAY - ABDOMEN/PELVIS REASON FOR EXAM: Female, 81 years old. ABD PAIN TECHNIQUE: 3 views COMPARISON: None. FINDINGS: Normal visualized lung bases. Nonspecific diffuse ileus pattern.. There is no demonstrated free abdominal air. The visualized liver, spleen and kidneys are grossly normal in size and morphology. Postsurgical changes in the right upper quadrant and left mid to upper abdomen. Lumbar spine demonstrates degenerative change RAD/Abd Inc Decub and/or Erect IMPRESSION: Diffuse nonspecific ileus. Electronically Signed: Jonathan Cruz MD at 19:07 EST ,
== END 2021-09-30 23:59 | disposition home or self-care (01) ==
PROVIDERS: PCP Family Medicine Geriatric Medicine; Visit Provider Family Medicine Geriatric Medicine
DX: R10.9 Unspecified abdominal pain (principal)
CPT/HCPCS: 74019

== ENCOUNTER 2021-10-01 08:47 | Outpatient (CLI) | payer MEDICARE, SELFPAY | END 2021-10-01 23:59 | disposition home or self-care (01) | LOC: LABSPEC 08:47 | PROVIDERS: PCP Family Medicine Geriatric Medicine; Visit Provider Family Medicine Geriatric Medicine | DX: R19.7 Diarrhea, unspecified (principal); B96.89 Other specified bacterial agents as the cause of diseases classified elsewhere | CPT/HCPCS: 87493; 87506 ==

== ENCOUNTER 2021-10-06 12:51 | Outpatient (CLI) | payer MEDICARE, SELFPAY | END 2021-10-06 23:59 | disposition home or self-care (01) | LOC: PSN 12:54 | PROVIDERS: PCP Family Medicine Geriatric Medicine; Referring Provider Family Medicine Geriatric Medicine; Visit Provider Family Medicine Geriatric Medicine | DX: R68.83 Chills (without fever) (principal); Z20.822 Contact with and (suspected) exposure to COVID-19 | CPT/HCPCS: 87635; 87804; 87807; C9803; U0003; U0005 ==

== ENCOUNTER 2021-11-05 12:52 | Outpatient (CLI) | payer MEDICARE, SELFPAY ==
[2021-11-05 16:02] LABS: Absolute Lymphocyte Count 1.08 X10^3/uL (0.83-4.51); Absolute Neutrophil Count 5.4 X10^3/uL (2.0-7.7); Basophil# 0.04 X10^3/uL; Basophil% 0.5 % (0-1); Eosinophil# 0.12 X10^3/uL; Eosinophils% 1.6 % (0-5); Hematocrit 39.4 % (37-47); Hemoglobin 13.2 g/dL (12.0-15.0); Lymphocyte # 1.08 X10^3/ul (0.83-4.51); Lymphocyte % 14.8 % (19-41); Mean Corp Hgb Conc 33.5 g/dL (32-36); Mean Corpuscular Hgb 31.8 pg (27.0-32.0); Mean Corpuscular Volume 94.9 fL (81-99); Mean Platelet Vol. 10.7 fl (6.2-12.0); Monocyte# 0.69 X10^3/uL; Monocyte% 9.4 % (0-10); NRBC Flagged by Analyzer 0 % (0-5); Neutrophil # 5.35 X10^3/uL (2.7-7.7); Neutrophil % 73.2 % (47-70); Platelet Count 287 K/mm3 (150-450); Red Blood Count 4.15 M/mm3 (4.2-5.4); White Blood Count 7.3 K/mm3 (4.4-11.0)
[2021-11-05 16:20] LABS: Vitamin D,25 Hydroxy 27.1 ng/mL
[2021-11-05 16:28] LABS: AST(SGOT) 28 U/L (15-37); Alanine Aminotransfer ALT/SGPT 36 U/L (13-56); Albumin, Serum 3.5 g/dL (3.2-5.0); Alkaline Phosphatase 75 U/L (45-117); Anion Gap 3 (5-15); BUN 20 mg/dL (7-18); BUN/Creat Ratio 33.5 RATIO (10-20); Calcium,Total 8.8 mg/dL (8.5-10.1); Chloride 102 mmol/L (98-107); EST Glomerular Filtration Rate 102 mL/min (>60); Est Glom Filt Rate - Afr Amer 124 mL/min (>60); Globulin 3.5 g/dL (2.2-4.2); Glucose 83 mg/dL (74-106); Sodium Level 137 mmol/L (136-145); Thyroid Stim Hormone (TSH) 1.92 uIU/mL (0.358-3.74)
== END 2021-11-05 23:59 | disposition home or self-care (01) ==
LOC: POLAB3 12:53
PROVIDERS: PCP Family Medicine Geriatric Medicine; Visit Provider Family Medicine Geriatric Medicine
DX: E55.9 Vitamin D deficiency, unspecified (principal); I10 Essential (primary) hypertension
CPT/HCPCS: 36415; 80053; 82306; 84443; 85025

== ENCOUNTER → 2022-02-02 | Outpatient (CLI) | payer MEDICARE, SELFPAY ==
[2022-02-02 15:04] LABS: Absolute Neutrophil Count 4.7 X10^3/uL (2.0-7.7); Basophil# 0.04 X10^3/uL; Basophil% 0.6 % (0-1); Eosinophils% 1.5 % (0-5); Hematocrit 37.7 % (37-47); Hemoglobin 12.2 g/dL (12.0-15.0); Lymphocyte % 16.6 % (19-41); Mean Corp Hgb Conc 32.4 g/dL (32-36); Mean Corpuscular Hgb 30.6 pg (27.0-32.0); Mean Corpuscular Volume 94.5 fL (81-99); Mean Platelet Vol. 10.7 fl (6.2-12.0); Monocyte# 0.64 X10^3/uL; Monocyte% 9.7 % (0-10); NRBC Flagged by Analyzer 0 % (0-5); Neutrophil % 71.1 % (47-70); Platelet Count 255 K/mm3 (150-450); RBC Distribution Width CV 13.4 % (11.6-14.6); RBC Distribution Width SD 47.1 fl (35.1-43.9); Red Blood Count 3.99 M/mm3 (4.2-5.4); White Blood Count 6.6 K/mm3 (4.4-11.0)
[2022-02-02 22:02] LABS: AST(SGOT) 23 U/L (15-37); Alanine Aminotransfer ALT/SGPT 25 U/L (13-56); Albumin, Serum 3.3 g/dL (3.2-5.0); Alkaline Phosphatase 69 U/L (45-117); Anion Gap 9 (5-15); BUN 17 mg/dL (7-18); BUN/Creat Ratio 29.4 RATIO (10-20); Calcium,Total 8.7 mg/dL (8.5-10.1); Chloride 102 mmol/L (98-107); Creatinine, Serum 0.58 mg/dL (0.55-1.02); EST Glomerular Filtration Rate 106 mL/min (>60); Est Glom Filt Rate - Afr Amer 129 mL/min (>60); Globulin 3.3 g/dL (2.2-4.2); Glucose 98 mg/dL (74-106); Protein, Total 6.6 g/dL (6.4-8.2); Sodium Level 136 mmol/L (136-145); Thyroid Stim Hormone (TSH) 1.69 uIU/mL (0.358-3.74)
[2022-02-02 23:09] LABS: Vitamin D,25 Hydroxy 37.6 ng/mL
== END | disposition home or self-care (01) ==
LOC: POLAB3 12:39
PROVIDERS: PCP Family Medicine Geriatric Medicine; Visit Provider Family Medicine Geriatric Medicine
DX: I10 Essential (primary) hypertension (principal); E55.9 Vitamin D deficiency, unspecified
CPT/HCPCS: 36415; 80053; 82306; 84443; 85025

== ENCOUNTER → 2022-02-26 | Outpatient (CLI) | payer MEDICARE, SELFPAY ==
[2022-02-26 17:01] LABS: Absolute Lymphocyte Count 1.07 X10^3/uL (0.83-4.51); Absolute Neutrophil Count 5.6 X10^3/uL (2.0-7.7); Basophil# 0.04 X10^3/uL; Basophil% 0.5 % (0-1); Eosinophil# 0.09 X10^3/uL; Eosinophils% 1.2 % (0-5); Hemoglobin 12.5 g/dL (12.0-15.0); Lymphocyte # 1.07 X10^3/ul (0.83-4.51); Lymphocyte % 14.3 % (19-41); Mean Corp Hgb Conc 33.8 g/dL (32-36); Mean Corpuscular Hgb 30.3 pg (27.0-32.0); Mean Corpuscular Volume 89.8 fL (81-99); Mean Platelet Vol. 10.7 fl (6.2-12.0); Monocyte# 0.66 X10^3/uL; Monocyte% 8.8 % (0-10); NRBC Flagged by Analyzer 0 % (0-5); Neutrophil % 74.7 % (47-70); Platelet Count 264 K/mm3 (150-450); RBC Distribution Width CV 14.1 % (11.6-14.6); RBC Distribution Width SD 46.3 fl (35.1-43.9); Red Blood Count 4.12 M/mm3 (4.2-5.4); White Blood Count 7.5 K/mm3 (4.4-11.0)
[2022-02-26 17:52] LABS: Anion Gap 7 (5-15); BUN 19 mg/dL (7-18); BUN/Creat Ratio 32.6 RATIO (10-20); Chloride 96 mmol/L (98-107); Creatinine, Serum 0.58 mg/dL (0.55-1.02); EST Glomerular Filtration Rate 105 mL/min (>60); Est Glom Filt Rate - Afr Amer 127 mL/min (>60); Glucose 87 mg/dL (74-106); Potassium 3.1 mmol/L (3.5-5.1); Sodium Level 135 mmol/L (136-145)
== END | disposition home or self-care (01) ==
LOC: POLAB3 14:21
PROVIDERS: PCP Family Medicine Geriatric Medicine; Visit Provider Family Medicine Geriatric Medicine
DX: R60.9 Edema, unspecified (principal)
CPT/HCPCS: 36415; 80048; 85025

== ENCOUNTER → 2022-02-27 | Outpatient (CLI) | payer MEDICARE, SELFPAY | END | disposition home or self-care (01) | PROVIDERS: PCP Family Medicine Geriatric Medicine; Referring Provider Family Medicine Geriatric Medicine; Visit Provider Family Medicine Geriatric Medicine | DX: R68.83 Chills (without fever) (principal); Z20.822 Contact with and (suspected) exposure to COVID-19 | CPT/HCPCS: 87635; 87804; 87807; C9803; U0003; U0005 ==

== ENCOUNTER → 2022-03-09 | Outpatient (CLI) | payer MEDICARE, SELFPAY ==
[2022-03-09 15:11] LABS: Anion Gap 5 (5-15); BUN 18 mg/dL (7-18); BUN/Creat Ratio 31.3 RATIO (10-20); Calcium,Total 8.8 mg/dL (8.5-10.1); Chloride 106 mmol/L (98-107); Creatinine, Serum 0.58 mg/dL (0.55-1.02); EST Glomerular Filtration Rate 107 mL/min (>60); Est Glom Filt Rate - Afr Amer 129 mL/min (>60); Glucose 81 mg/dL (74-106); Potassium 4.1 mmol/L (3.5-5.1); Sodium Level 138 mmol/L (136-145)
== END | disposition home or self-care (01) ==
LOC: POLAB3 14:16
PROVIDERS: PCP Family Medicine Geriatric Medicine; Visit Provider Family Medicine Geriatric Medicine
DX: E87.1 Hypo-osmolality and hyponatremia (principal)
CPT/HCPCS: 36415; 80048

== ENCOUNTER → 2022-05-11 | Outpatient (CLI) | payer MEDICARE, SELFPAY ==
[2022-05-11 16:47] LABS: Absolute Lymphocyte Count 1.15 X10^3/uL (0.83-4.51); Absolute Neutrophil Count 3.5 X10^3/uL (2.0-7.7); Basophil# 0.04 X10^3/uL; Basophil% 0.8 % (0-1); Eosinophil# 0.07 X10^3/uL; Eosinophils% 1.3 % (0-5); Hematocrit 38.3 % (37-47); Hemoglobin 12.5 g/dL (12.0-15.0); Lymphocyte # 1.15 X10^3/ul (0.83-4.51); Lymphocyte % 22.1 % (19-41); Mean Corp Hgb Conc 32.6 g/dL (32-36); Mean Corpuscular Hgb 30.3 pg (27.0-32.0); Mean Corpuscular Volume 92.7 fL (81-99); Mean Platelet Vol. 10.6 fl (6.2-12.0); Monocyte# 0.44 X10^3/uL; Monocyte% 8.4 % (0-10); NRBC Flagged by Analyzer 0 % (0-5); Neutrophil # 3.46 X10^3/uL (2.7-7.7); Neutrophil % 66.4 % (47-70); Platelet Count 282 K/mm3 (150-450); RBC Distribution Width CV 14.5 % (11.6-14.6); RBC Distribution Width SD 49.6 fl (35.1-43.9); Red Blood Count 4.13 M/mm3 (4.2-5.4); White Blood Count 5.2 K/mm3 (4.4-11.0)
[2022-05-11 17:07] LABS: Vitamin D,25 Hydroxy 28.5 ng/mL
[2022-05-11 17:14] LABS: ALB/GLOB Ratio 0.9 RATIO (0.9-2.4); AST(SGOT) 24 U/L (15-37); Alanine Aminotransfer ALT/SGPT 28 U/L (13-56); Albumin, Serum 3.3 g/dL (3.2-5.0); Alkaline Phosphatase 76 U/L (45-117); Anion Gap 7 (5-15); BUN 16 mg/dL (7-18); BUN/Creat Ratio 25.7 RATIO (10-20); Calcium,Total 9.1 mg/dL (8.5-10.1); Chloride 105 mmol/L (98-107); Creatinine, Serum 0.62 mg/dL (0.55-1.02); EST Glomerular Filtration Rate 97 mL/min (>60); Est Glom Filt Rate - Afr Amer 118 mL/min (>60); Globulin 3.6 g/dL (2.2-4.2); Glucose 97 mg/dL (74-106); Potassium 3.9 mmol/L (3.5-5.1); Protein, Total 6.9 g/dL (6.4-8.2); Sodium Level 142 mmol/L (136-145); Thyroid Stim Hormone (TSH) 2.03 uIU/mL (0.358-3.74)
== END | disposition home or self-care (01) ==
LOC: POLAB3 12:53
PROVIDERS: PCP Family Medicine Geriatric Medicine; Visit Provider Family Medicine Geriatric Medicine
DX: I10 Essential (primary) hypertension (principal); E55.9 Vitamin D deficiency, unspecified
CPT/HCPCS: 36415; 80053; 82306; 84443; 85025

== ENCOUNTER → 2022-08-13 | Outpatient (CLI) | payer MEDICARE, SELFPAY ==
[2022-08-13 17:03] LABS: Absolute Lymphocyte Count 0.91 X10^3/uL (0.83-4.51); Absolute Neutrophil Count 3.7 X10^3/uL (2.0-7.7); Basophil# 0.03 X10^3/uL; Basophil% 0.6 % (0-1); Eosinophil# 0.07 X10^3/uL; Eosinophils% 1.3 % (0-5); Hematocrit 38.2 % (37-47); Lymphocyte # 0.91 X10^3/ul (0.83-4.51); Lymphocyte % 17.3 % (19-41); Mean Corp Hgb Conc 31.4 g/dL (32-36); Mean Corpuscular Hgb 28.6 pg (27.0-32.0); Mean Corpuscular Volume 91.2 fL (81-99); Monocyte% 9.5 % (0-10); NRBC Flagged by Analyzer 0 % (0-5); Neutrophil # 3.72 X10^3/uL (2.7-7.7); Neutrophil % 70.9 % (47-70); Platelet Count 293 K/mm3 (150-450); RBC Distribution Width SD 46.9 fl (35.1-43.9); Red Blood Count 4.19 M/mm3 (4.2-5.4); White Blood Count 5.3 K/mm3 (4.4-11.0)
[2022-08-13 17:21] LABS: Vitamin D,25 Hydroxy 32.1 ng/mL
[2022-08-13 17:33] LABS: ALB/GLOB Ratio 0.9 RATIO (0.9-2.4); AST(SGOT) 21 U/L (15-37); Alanine Aminotransfer ALT/SGPT 29 U/L (13-56); Albumin, Serum 3.3 g/dL (3.2-5.0); Alkaline Phosphatase 77 U/L (45-117); Anion Gap 7 (5-15); BUN 19 mg/dL (7-18); BUN/Creat Ratio 32.1 RATIO (10-20); Calcium,Total 8.6 mg/dL (8.5-10.1); Chloride 105 mmol/L (98-107); Creatinine, Serum 0.59 mg/dL (0.55-1.02); EST Glomerular Filtration Rate 103 mL/min (>60); Est Glom Filt Rate - Afr Amer 125 mL/min (>60); Globulin 3.5 g/dL (2.2-4.2); Glucose 103 mg/dL (74-106); Potassium 3.7 mmol/L (3.5-5.1); Protein, Total 6.8 g/dL (6.4-8.2); Sodium Level 136 mmol/L (136-145); Thyroid Stim Hormone (TSH) 2.96 uIU/mL (0.358-3.74)
== END | disposition home or self-care (01) ==
LOC: POLAB3 13:56
PROVIDERS: PCP Family Medicine Geriatric Medicine; Visit Provider Family Medicine Geriatric Medicine
DX: E55.9 Vitamin D deficiency, unspecified (principal); I10 Essential (primary) hypertension
CPT/HCPCS: 36415; 80053; 82306; 84443; 85025

== ENCOUNTER → 2022-08-25 | Outpatient (CLI) | payer MEDICARE, SELFPAY ==
--- NOTE | 2022-08-25 12:30 | RAD_ITS ---
INDICATION: PAIN EXAMINATION/TECHNIQUE: X-RAY - XR Spine Lumbar 2 or 3 Views COMPARISON: None. FINDINGS: VERTEBRAE: No fracture or acute compression deformity. Partial sacralization of L5. Levels numbering accordingly Chronic anterior compression deformity of L1 and T12. Prominent Grade 1 anterolisthesis L4 on L5, grade 1 retrolisthesis L1 on L2 and L2 on L3. Gentle levocurvature of the thoracolumbar spine. Lower Lumbosacral facet arthropathy. DISCS: Diffuse disc height loss INCLUDED ABDOMEN: Right and left upper abdominal and left lower abdominal surgical clips and sutures. Included bowel gas pattern is non-obstructive. Aortic atherosclerosis. RAD/Lumbar Spine 2 or 3 Views IMPRESSION: No evidence of lumbar spinal fracture or spondylolisthesis. Moderate spondylosis with degenerative listhesis as above. Electronically Signed: Virgilio Turner MD at 3:08 EST ,
--- NOTE | 2022-08-25 12:46 | RAD_ITS ---
INDICATION: PAIN EXAMINATION/TECHNIQUE: X-RAY - RIGHT XR Hip Unilateral with Pelvis when performed; 2-3 Views: AP pelvis with AP and frog-leg right hip COMPARISON: None. FINDINGS: SOFT TISSUES: No soft tissue swelling or gas. No radiopaque foreign body. Left abdominal surgical suture noted. Few pelvic phleboliths. Iliac atherosclerosis. BONES/JOINTS: No acute fracture or subluxation.. Normal alignment. Mild bilateral hip joint space narrowing and osteophyte formation.. No aggressive osseous lesion. Lumbosacral facet arthropathy and bridging osteophytes. RAD/HIP, UNI W/ Pelvis 2-3 Views IMPRESSION: No acute osseous finding. Mild sacroiliac joint and bilateral hip degenerative change. Electronically Signed: Virgilio Turner MD at 3:43 EST ,
== END | disposition home or self-care (01) ==
LOC: RAD 12:28
PROVIDERS: PCP Family Medicine Geriatric Medicine; Referring Provider Family Medicine Geriatric Medicine; Visit Provider Family Medicine Geriatric Medicine
DX: M16.0 Bilateral primary osteoarthritis of hip (principal); I70.0 Atherosclerosis of aorta; M47.817 Spondylosis without myelopathy or radiculopathy, lumbosacral region
CPT/HCPCS: 72100; 73502

== ENCOUNTER → 2022-11-17 | Outpatient (CLI) | payer MEDICARE, SELFPAY ==
[2022-11-17 17:43] LABS: Absolute Lymphocyte Count 0.85 X10^3/uL (0.83-4.51); Absolute Neutrophil Count 4.3 X10^3/uL (2.0-7.7); Basophil# 0.04 X10^3/uL; Basophil% 0.6 % (0-1); Eosinophil# 0.29 X10^3/uL; Eosinophils% 4.7 % (0-5); Hematocrit 37.6 % (37-47); Hemoglobin 11.5 g/dL (12.0-15.0); Lymphocyte # 0.85 X10^3/ul (0.83-4.51); Lymphocyte % 13.8 % (19-41); Mean Corp Hgb Conc 30.6 g/dL (32-36); Mean Corpuscular Hgb 27.1 pg (27.0-32.0); Mean Corpuscular Volume 88.5 fL (81-99); Mean Platelet Vol. 10.7 fl (6.2-12.0); Monocyte# 0.66 X10^3/uL; Monocyte% 10.7 % (0-10); NRBC Flagged by Analyzer 0 % (0-5); Neutrophil % 69.9 % (47-70); Platelet Count 292 K/mm3 (150-450); RBC Distribution Width CV 14.5 % (11.6-14.6); RBC Distribution Width SD 46.1 fl (35.1-43.9); Red Blood Count 4.25 M/mm3 (4.2-5.4); White Blood Count 6.2 K/mm3 (4.4-11.0)
[2022-11-17 18:14] LABS: Vitamin D,25 Hydroxy 37.3 ng/mL
[2022-11-17 18:27] LABS: AST(SGOT) 25 U/L (15-37); Alanine Aminotransfer ALT/SGPT 24 U/L (13-56); Albumin, Serum 3.3 g/dL (3.2-5.0); Alkaline Phosphatase 77 U/L (45-117); Anion Gap 8 (5-15); BUN 17 mg/dL (7-18); BUN/Creat Ratio 27.7 RATIO (10-20); Calcium,Total 8.6 mg/dL (8.5-10.1); Chloride 103 mmol/L (98-107); Creatinine, Serum 0.61 mg/dL (0.55-1.02); EST Glomerular Filtration Rate 99 mL/min (>60); Est Glom Filt Rate - Afr Amer 120 mL/min (>60); Globulin 3.3 g/dL (2.2-4.2); Glucose 86 mg/dL (74-106); Potassium 3.9 mmol/L (3.5-5.1); Protein, Total 6.6 g/dL (6.4-8.2); Sodium Level 136 mmol/L (136-145); Thyroid Stim Hormone (TSH) 1.73 uIU/mL (0.358-3.74)
== END | disposition home or self-care (01) ==
PROVIDERS: PCP Family Medicine Geriatric Medicine; Visit Provider Family Medicine Geriatric Medicine
DX: I10 Essential (primary) hypertension (principal); E55.9 Vitamin D deficiency, unspecified
CPT/HCPCS: 36415; 80053; 82306; 84443; 85025

== ENCOUNTER → 2023-02-23 | Outpatient (CLI) | payer MEDICARE, SELFPAY ==
[2023-02-23 16:04] LABS: Absolute Neutrophil Count 2.9 X10^3/uL (2.0-7.7); Basophil# 0.03 X10^3/uL; Basophil% 0.7 % (0-1); Eosinophil# 0.08 X10^3/uL; Eosinophils% 1.8 % (0-5); Hematocrit 35.8 % (37-47); Lymphocyte % 20.4 % (19-41); Mean Corp Hgb Conc 30.7 g/dL (32-36); Mean Corpuscular Hgb 26.6 pg (27.0-32.0); Mean Corpuscular Volume 86.5 fL (81-99); Mean Platelet Vol. 10.4 fl (6.2-12.0); Monocyte# 0.47 X10^3/uL; Monocyte% 10.6 % (0-10); NRBC Flagged by Analyzer 0 % (0-5); Neutrophil # 2.93 X10^3/uL (2.7-7.7); Neutrophil % 66.3 % (47-70); Platelet Count 301 K/mm3 (150-450); RBC Distribution Width CV 15.7 % (11.6-14.6); RBC Distribution Width SD 49.5 fl (35.1-43.9); Red Blood Count 4.14 M/mm3 (4.2-5.4); White Blood Count 4.4 K/mm3 (4.4-11.0)
[2023-02-23 19:18] LABS: ALB/GLOB Ratio 0.9 RATIO (0.9-2.4); AST(SGOT) 28 U/L (15-37); Alanine Aminotransfer ALT/SGPT 30 U/L (13-56); Albumin, Serum 3.1 g/dL (3.2-5.0); Alkaline Phosphatase 86 U/L (45-117); Anion Gap 5 (5-15); BUN 18 mg/dL (7-18); BUN/Creat Ratio 30.2 RATIO (10-20); Calcium,Total 8.6 mg/dL (8.5-10.1); Chloride 106 mmol/L (98-107); EST Glomerular Filtration Rate 102 mL/min (>60); Est Glom Filt Rate - Afr Amer 124 mL/min (>60); Globulin 3.3 g/dL (2.2-4.2); Glucose 106 mg/dL (74-106); Potassium 3.7 mmol/L (3.5-5.1); Protein, Total 6.4 g/dL (6.4-8.2); Sodium Level 137 mmol/L (136-145); Thyroid Stim Hormone (TSH) 2.14 uIU/mL (0.358-3.74)
== END | disposition home or self-care (01) ==
PROVIDERS: PCP Family Medicine Geriatric Medicine; Visit Provider Family Medicine Geriatric Medicine
DX: I10 Essential (primary) hypertension (principal); E55.9 Vitamin D deficiency, unspecified
CPT/HCPCS: 36415; 80053; 82306; 84443; 85025

== ENCOUNTER → 2023-05-18 | Outpatient (CLI) | payer MEDICARE, SELFPAY ==
[2023-05-18 14:53] LABS: Absolute Lymphocyte Count 1.04 X10^3/uL (0.83-4.51); Basophil# 0.03 X10^3/uL; Basophil% 0.6 % (0-1); Eosinophil# 0.08 X10^3/uL; Eosinophils% 1.7 % (0-5); Hematocrit 36.3 % (37-47); Hemoglobin 10.9 g/dL (12.0-15.0); Lymphocyte # 1.04 X10^3/ul (0.83-4.51); Lymphocyte % 22.4 % (19-41); Mean Corpuscular Hgb 26.3 pg (27.0-32.0); Mean Corpuscular Volume 87.5 fL (81-99); Mean Platelet Vol. 10.3 fl (6.2-12.0); Monocyte# 0.47 X10^3/uL; Monocyte% 10.1 % (0-10); NRBC Flagged by Analyzer 0 % (0-5); Neutrophil # 3.02 X10^3/uL (2.7-7.7); Platelet Count 293 K/mm3 (150-450); RBC Distribution Width CV 14.7 % (11.6-14.6); Red Blood Count 4.15 M/mm3 (4.2-5.4); White Blood Count 4.7 K/mm3 (4.4-11.0)
[2023-05-18 15:37] LABS: Vitamin D,25 Hydroxy 34.7 ng/mL
[2023-05-18 15:45] LABS: AST(SGOT) 23 U/L (15-37); Alanine Aminotransfer ALT/SGPT 24 U/L (13-56); Albumin, Serum 3.4 g/dL (3.2-5.0); Alkaline Phosphatase 92 U/L (45-117); Anion Gap 5 (5-15); BUN 19 mg/dL (7-18); BUN/Creat Ratio 34.1 RATIO (10-20); Calcium,Total 8.6 mg/dL (8.5-10.1); Chloride 106 mmol/L (98-107); Creatinine, Serum 0.56 mg/dL (0.55-1.02); EST Glomerular Filtration Rate 110 mL/min (>60); Est Glom Filt Rate - Afr Amer 134 mL/min (>60); Globulin 3.3 g/dL (2.2-4.2); Glucose 101 mg/dL (74-106); Potassium 3.9 mmol/L (3.5-5.1); Protein, Total 6.7 g/dL (6.4-8.2); Sodium Level 139 mmol/L (136-145); Thyroid Stim Hormone (TSH) 2.36 uIU/mL (0.358-3.74)
== END | disposition home or self-care (01) ==
LOC: POLAB3 14:01
PROVIDERS: PCP Family Medicine Geriatric Medicine; Visit Provider Family Medicine Geriatric Medicine
DX: R30.0 Dysuria (principal); I10 Essential (primary) hypertension; E55.9 Vitamin D deficiency, unspecified
CPT/HCPCS: 36415; 80053; 82306; 84443; 85025; 87086; 87088

== ENCOUNTER → 2023-08-05 | Outpatient (CLI) | payer MEDICARE, SELFPAY | END | disposition home or self-care (01) | LOC: PSN 14:10 | PROVIDERS: PCP Family Medicine Geriatric Medicine; Referring Provider Family Medicine Geriatric Medicine; Visit Provider Family Medicine Geriatric Medicine | DX: R68.83 Chills (without fever) (principal) | CPT/HCPCS: 87635; 87804; 87807 ==

== ENCOUNTER → 2023-11-16 | Outpatient (CLI) | payer MEDICARE, SELFPAY ==
[2023-11-16 14:34] LABS: Absolute Lymphocyte Count 0.84 X10^3/uL (0.83-4.51); Basophil# 0.06 X10^3/uL; Basophil% 1.3 % (0-1); Eosinophil# 0.17 X10^3/uL; Eosinophils% 3.6 % (0-5); Hematocrit 34.7 % (37-47); Hemoglobin 10.5 g/dL (12.0-15.0); Lymphocyte # 0.84 X10^3/ul (0.83-4.51); Lymphocyte % 17.6 % (19-41); Mean Corp Hgb Conc 30.3 g/dL (32-36); Mean Corpuscular Hgb 25.2 pg (27.0-32.0); Mean Corpuscular Volume 83.4 fL (81-99); Mean Platelet Vol. 10.3 fl (6.2-12.0); Monocyte# 0.67 X10^3/uL; NRBC Flagged by Analyzer 0 % (0-5); Neutrophil # 3.02 X10^3/uL (2.7-7.7); Neutrophil % 63.1 % (47-70); Platelet Count 345 K/mm3 (150-450); RBC Distribution Width CV 15.3 % (11.6-14.6); RBC Distribution Width SD 46.4 fl (35.1-43.9); Red Blood Count 4.16 M/mm3 (4.2-5.4); White Blood Count 4.8 K/mm3 (4.4-11.0)
[2023-11-16 14:48] LABS: Vitamin D,25 Hydroxy 39.2 ng/mL
[2023-11-16 14:56] LABS: ALB/GLOB Ratio 0.9 RATIO (0.9-2.4); AST(SGOT) 23 U/L (15-37); Alanine Aminotransfer ALT/SGPT 20 U/L (13-56); Albumin, Serum 3.2 g/dL (3.2-5.0); Alkaline Phosphatase 85 U/L (45-117); Anion Gap 6 (5-15); BUN 14 mg/dL (7-18); BUN/Creat Ratio 24.7 RATIO (10-20); Calcium,Total 8.7 mg/dL (8.5-10.1); Chloride 105 mmol/L (98-107); Cholesterol 153 mg/dL (200); Creatinine, Serum 0.57 mg/dL (0.55-1.02); EST Glomerular Filtration Rate 108 mL/min (>60); Est Glom Filt Rate - Afr Amer 131 mL/min (>60); Globulin 3.6 g/dL (2.2-4.2); Glucose 91 mg/dL (74-106); High Density Lipoprotein 66 mg/dL; Potassium 3.9 mmol/L (3.5-5.1); Protein, Total 6.8 g/dL (6.4-8.2); Sodium Level 138 mmol/L (136-145); Thyroid Stim Hormone (TSH) 2.47 uIU/mL (0.358-3.74); Triglycerides 106 mg/dL; Very Low Density Lipoprotein 21 mg/dL (5-40)
--- NOTE | 2023-11-16 14:57 | RAD_ITS ---
STUDY: X-RAY - LUMBAR SPINE REASON FOR EXAM: Female, 83 years old. Right sciatica. TECHNIQUE: 5 view(s) of the lumbar spine were obtained. COMPARISON: 08/25/2022 FINDINGS: Marked osteopenia. Increased lordosis. Moderate levoscoliosis. 6 mm of anterolisthesis of L2 on L1, 8 mm of anterolisthesis of L3 on L2 and 13 mm of anterolisthesis of L4 on L5, relatively unchanged from prior study. Anterior wedge compression deformities, T12 greater than L1, relatively unchanged from prior study. Diffuse moderate lower thoracic and lumbosacral facet sclerosis. Diffuse intervertebral disc space narrowing with osteophytes most marked at T11-T12, T12-L1 and L1-L2. Moderate intervertebral disc space narrowing at L5-S1, relatively unchanged. Clips projected over the upper abdomen bilaterally and sutures in the region of the GE junction, all unchanged. RAD/L/S Spine Min 4 Views IMPRESSION: Stable osteopenia with anterior wedge compression deformities, T12 greater than L1, relatively unchanged, age indeterminate. Diffuse moderate to marked lower thoracic and lumbosacral spondylosis as described. Electronically Signed: Fred Machado MD at 15:56 EDT ,
== END | disposition home or self-care (01) ==
PROVIDERS: PCP Family Medicine Geriatric Medicine; Referring Provider Family Medicine Geriatric Medicine; Visit Provider Family Medicine Geriatric Medicine
DX: I10 Essential (primary) hypertension (principal); E55.9 Vitamin D deficiency, unspecified; E78.5 Hyperlipidemia, unspecified; M54.31 Sciatica, right side
CPT/HCPCS: 36415; 72110; 80053; 80061; 82306; 84443; 85025

== ENCOUNTER → 2024-01-14 | Outpatient (CLI) | payer MEDICARE, SELFPAY ==
--- NOTE | 2024-01-14 11:58 | RAD_ITS ---
HISTORY: WHEEZING. TECHNIQUE: XR Chest 2 Views. COMPARISON: 08/18/2009. FINDINGS: CARDIOMEDIASTINAL BORDERS: Cardiac silhouette within normal limits in size. Mediastinal contour also unchanged with mild calcification of the aortic knob. LUNGS: Very mild linear bibasilar atelectasis or scarring. PLEURA: No pleural effusion or pneumothorax seen. OSSEOUS STRUCTURES: Right shoulder arthroplasty. Degenerative change and scoliosis. Anterior wedging at the thoracolumbar junction. Surgical clips in the upper abdomen. RAD/Chest PA and Lateral IMPRESSION: Mild bibasilar atelectasis or scarring. Electronically Signed: Sue Wright MD at 9:50 EDT ,
== END | disposition home or self-care (01) ==
PROVIDERS: PCP Family Medicine Geriatric Medicine; Referring Provider Family Medicine Geriatric Medicine; Visit Provider Family Medicine Geriatric Medicine
DX: R68.83 Chills (without fever) (principal); R06.2 Wheezing
CPT/HCPCS: 71046; 87631

== ENCOUNTER → 2024-05-22 | Outpatient (CLI) | payer MEDICARE, SELFPAY ==
[2024-05-22 13:58] LABS: Absolute Lymphocyte Count 0.96 X10^3/uL (0.83-4.51); Absolute Neutrophil Count 2.5 X10^3/uL (2.0-7.7); Basophil# 0.06 X10^3/uL; Basophil% 1.5 % (0-1); Eosinophil# 0.15 X10^3/uL; Eosinophils% 3.7 % (0-5); Hematocrit 36.3 % (37-47); Hemoglobin 10.8 g/dL (12.0-15.0); Lymphocyte # 0.96 X10^3/ul (0.83-4.51); Lymphocyte % 23.9 % (19-41); Mean Corp Hgb Conc 29.8 g/dL (32-36); Mean Corpuscular Hgb 24.8 pg (27.0-32.0); Mean Corpuscular Volume 83.4 fL (81-99); Mean Platelet Vol. 9.9 fl (6.2-12.0); Monocyte# 0.35 X10^3/uL; Monocyte% 8.7 % (0-10); NRBC Flagged by Analyzer 0 % (0-5); Neutrophil # 2.47 X10^3/uL (2.7-7.7); Neutrophil % 61.7 % (47-70); Platelet Count 289 K/mm3 (150-450); RBC Distribution Width CV 16.2 % (11.6-14.6); RBC Distribution Width SD 49.3 fl (35.1-43.9); Red Blood Count 4.35 M/mm3 (4.2-5.4)
[2024-05-22 14:30] LABS: AST(SGOT) 22 U/L (15-37); Alanine Aminotransfer ALT/SGPT 21 U/L (13-56); Albumin, Serum 3.4 g/dL (3.2-5.0); Alkaline Phosphatase 74 U/L (45-117); Anion Gap 6 (5-15); BUN 18 mg/dL (7-18); BUN/Creat Ratio 30.1 RATIO (10-20); Calcium,Total 8.9 mg/dL (8.5-10.1); Chloride 106 mmol/L (98-107); Cholesterol 161 mg/dL (200); EST Glomerular Filtration Rate 102 mL/min (>60); Est Glom Filt Rate - Afr Amer 123 mL/min (>60); Globulin 3.3 g/dL (2.2-4.2); Glucose 96 mg/dL (74-106); High Density Lipoprotein 63 mg/dL; Potassium 3.7 mmol/L (3.5-5.1); Protein, Total 6.7 g/dL (6.4-8.2); Sodium Level 139 mmol/L (136-145); Triglycerides 82 mg/dL; Very Low Density Lipoprotein 16 mg/dL (5-40)
== END | disposition home or self-care (01) ==
LOC: POLAB3 13:33
PROVIDERS: PCP Family Medicine Geriatric Medicine; Visit Provider Family Medicine Geriatric Medicine
DX: I10 Essential (primary) hypertension (principal); E78.5 Hyperlipidemia, unspecified; E55.9 Vitamin D deficiency, unspecified
CPT/HCPCS: 36415; 80053; 80061; 82306; 84443; 85025

== ENCOUNTER → 2024-06-28 | Outpatient (CLI) | payer MEDICARE, SELFPAY | END | disposition home or self-care (01) | LOC: POLAB3 15:00 | PROVIDERS: PCP Family Medicine Geriatric Medicine; Visit Provider Family Medicine Geriatric Medicine | DX: R68.83 Chills (without fever) (principal) | CPT/HCPCS: 87631 ==

== ENCOUNTER → 2024-10-17 | Outpatient (CLI) | payer MEDICARE, SELFPAY | END | disposition home or self-care (01) | LOC: POLAB3 16:19 | PROVIDERS: PCP Family Medicine Geriatric Medicine; Visit Provider Family Medicine Geriatric Medicine | DX: R68.83 Chills (without fever) (principal) | CPT/HCPCS: 87631 ==

== ENCOUNTER → 2024-11-21 | Outpatient (CLI) | payer MEDICARE, SELFPAY ==
[2024-11-21 15:37] LABS: Absolute Lymphocyte Count 1.07 X10^3/uL (0.83-4.51); Absolute Neutrophil Count 3.2 X10^3/uL (2.0-7.7); Basophil# 0.05 X10^3/uL; Eosinophil# 0.15 X10^3/uL; Eosinophils% 2.9 % (0-5); Hematocrit 33.3 % (37-47); Hemoglobin 10.2 g/dL (12.0-15.0); Lymphocyte # 1.07 X10^3/ul (0.83-4.51); Mean Corp Hgb Conc 30.6 g/dL (32-36); Mean Corpuscular Hgb 24.6 pg (27.0-32.0); Mean Corpuscular Volume 80.2 fL (81-99); Mean Platelet Vol. 9.8 fl (6.2-12.0); Monocyte# 0.63 X10^3/uL; Monocyte% 12.4 % (0-10); NRBC Flagged by Analyzer 0 % (0-5); Neutrophil # 3.18 X10^3/uL (2.7-7.7); Neutrophil % 62.3 % (47-70); Platelet Count 357 K/mm3 (150-450); RBC Distribution Width CV 15.4 % (11.6-14.6); RBC Distribution Width SD 44.9 fl (35.1-43.9); Red Blood Count 4.15 M/mm3 (4.2-5.4); White Blood Count 5.1 K/mm3 (4.4-11.0)
[2024-11-21 17:32] LABS: ALB/GLOB Ratio 1.7 RATIO (0.9-2.4); AST(SGOT) 24 U/L (<=31); Alanine Aminotransfer ALT/SGPT 16 U/L (<=34); Albumin, Serum 3.9 g/dL (3.4-4.8); Alkaline Phosphatase 68 U/L (35-104); Anion Gap 12 (5-15); BUN 19 mg/dL (4-19); BUN/Creat Ratio 40.5 RATIO (10-20); Calcium,Total 8.9 mg/dL (7.6-11.0); Carbon Dioxide 23.8 mmol/L (21.0-32.0); Chloride 101 mmol/L (98-108); Cholesterol 162 mg/dL (<=200); Creatinine, Serum 0.48 mg/dL (0.70-1.20); EST Glomerular Filtration Rate 93 (>60); Globulin 2.3 g/dL (2.2-4.2); Glucose 91 mg/dL (70-99); High Density Lipoprotein 62 mg/dL; Low Density Lipoprotein Calc. 85 mg/dL; Protein, Total 6.2 g/dL (5.9-8.4); Sodium Level 137 mmol/L (133-145); Total Bilirubin 0.41 mg/dL (0.00-1.30); Triglycerides 76 mg/dL; Very Low Density Lipoprotein 15 mg/dL (5-40); Vitamin D,25 Hydroxy 36.2 ng/mL (30-100); cholesterol:hdl ratio screen 2.61
== END | disposition home or self-care (01) ==
LOC: LAB 14:43
PROVIDERS: PCP Family Medicine Geriatric Medicine; Referring Provider Family Medicine Geriatric Medicine; Visit Provider Family Medicine Geriatric Medicine
DX: I10 Essential (primary) hypertension (principal); E78.5 Hyperlipidemia, unspecified; E55.9 Vitamin D deficiency, unspecified
CPT/HCPCS: 36415; 80053; 80061; 82306; 84443; 85025

== ENCOUNTER 2024-11-25 09:26 | Inpatient (IN) | payer MEDICARE, SELFPAY ==
[2024-11-25 09:27] VITALS: BP 149/66; PULSE 66; RESP 18; TEMP 37.2; O2SAT 97
--- NOTE | 2024-11-25 10:14 | ED.VIS.BACK ---
HPI <SHON Uribe - Last Filed: 11/25/24 11:30> History of Present Illness Chief Complaint: Back Narrative Narrative: 84-year-old female presents with low back pain x 1 week. She has had intermittent low back issues since last year when she had compression fractures of T12 and L1. 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 She saw her primary care doctor 4 days ago and was given IM shots in the office for a muscle relaxer anti-inflammatory and was prescribed prednisone, tramadol, and a muscle relaxer to take at bedtime. She is also taking Tylenol 650 mg 3 times a day. This was helping until 2 days ago when she had an ophthalmology procedure and was moving around on 2 different tables and surfaces and developed worsening low back pain. She uses a walker at baseline but is having more difficulty with ADLs. She lives alone. Her granddaughter had to help her sit and put her legs into the car due to pain. She has no weakness or lower extremity numbness or tingling. No saddle anesthesia or bladder bowel incontinence. [facility] <SHON Uribe - Last Filed: 11/25/24 11:30> [facility] Medical History Arthritis BPPV (benign paroxysmal positional vertigo) Cancer Compression fracture of L1 lumbar vertebra Constipation GERD (gastroesophageal reflux disease) Hemorrhoids Hypertension Home Medications ?Medication ?Instructions ?Recorded ?Last Taken ?Type hydrochlorothiazide 12.5 mg tablet 12.5 mg PO DAILY 03/18/17 03/18/17 14:00 History acetaminophen 500 mg tablet 1,000 mg (2 x 500 mg) PO Q8H PRN 04/02/17 Unknown Rx PRN Mild Pain (1-3/10) meclizine 12.5 mg tablet 12.5 mg PO TID ##90 04/02/17 Unknown Rx calcium carbonate (Calcium 600) 600 mg PO DAILY 04/24/22 Unknown History calcium carbonate (Tums) 200 mg PO BID 04/24/22 Unknown History cholecalciferol (vitamin D3) 10 10 mcg PO DAILY 04/24/22 Unknown History mcg (400 unit) capsule fluticasone propionate 50 1 spray intranasal DAILY 04/24/22 Unknown History mcg/actuation nasal spray,suspension guaifenesin 1,200 mg tablet, 1,200 mg PO BID 04/24/22 Unknown History extended release 12 hr (Mucinex) magnesium 250 mg tablet 250 mg PO DAILY 04/24/22 Unknown History melatonin 3 mg capsule 3 mg PO HS PRN 04/24/22 Unknown History metoprolol succinate 25 mg 25 mg PO DAILY 04/24/22 Unknown History tablet,extended release 24 hr multivitamin 1 tab PO DAILY 04/24/22 Unknown History potassium chloride 20 mEq 20 meq PO 04/24/22 Unknown History tablet,extended release turmeric 100 mg-jad 150 cap PO 04/24/22 Unknown History mg-olive 50 mg-oreg 150 mg-capryl capsule Allergy/AdvReac Type Severity Reaction Status Date / Time norfloxacin (From Noroxin) Allergy unknown Verified 11/25/24 09:26 polymyxin B Allergy Swelling Verified 11/25/24 09:26 levofloxacin (From Levaquin) AdvReac Diarrhea Verified 11/25/24 09:26 phenylephrine (From Sudafed AdvReac Other Verified 11/25/24 09:26 PE) Surgical History History of gastric bypass History of hysterectomy History of knee replacement Hx of shoulder replacement Social History Smoking Status: Former smoker ROS <SHON Uribe - Last Filed: 11/25/24 11:30> ROS ED ROS Narrative Constitutional: Negative for fever, chills, malaise. GI: Negative for abdominal pain, nausea, vomiting. : Negative for dysuria. Neuro: Negative for motor/sensory dysfunction. EXAM <SHON Uribe - Last Filed: 11/25/24 11:30> Physical Exam Narrative Exam Narrative: CONST: Patient sitting in no acute distress. EYES: Normal inspection. NECK: Normal inspection. RESP: No respiratory distress, CTAB. CVS: Regular rate and rhythm, no murmur, no gallop. ABD: Soft and nontender, no guarding or rebound, nondistended. Back: Normal inspection, tender over lower lumbar spine without step-offs. Tender over right lumbar paraspinals SKIN: Color normal, no rash, warm, dry, intact. EXTREMITIES: Symmetric bilateral pitting edema to mid tibia, 5/5 strength in dorsi flexion and plantarflexion, normal sensation, 2+ DP pulses. NEURO: Alert and answering questions appropriately. PSYCH: Normal affect. Const Vital Signs: 11/25/24 09:27 Temperature 98.9 F Temperature Source Oral Pulse Rate 66 Respiratory Rate 18 Blood Pressure 149/66 H Blood Pressure Mean 93 Pulse Ox 97 Oxygen Delivery Method Room Air <Dr. Payam Aldridge MD - Last Filed: 11/25/24 11:00> Physical Exam Const Vital Signs: 11/25/24 09:27 Temperature 98.9 F Temperature Source Oral Pulse Rate 66 Respiratory Rate 18 Blood Pressure 149/66 H Blood Pressure Mean 93 Pulse Ox 97 Oxygen Delivery Method Room Air MDM <SHON Uribe - Last Filed: 11/25/24 11:30> MDM MDM Narrative Medical decision making narrative: 84-year-old female with chronic low back pain presents with worsening pain x 1 week. There was no trauma but it worsened after increased activity and moving on and off tables during an ophthalmology procedure. She has tried naproxen, tramadol, prednisone, and baclofen without improvement from primary care. She appears well nontoxic. Vital signs stable. She is tender over the mid lumbar spine without step-offs. Lower extremity MSPs intact. She does have chronic lower extremity edema slightly worse than baseline. She has no red flag signs or symptoms concerning for epidural abscess or cauda equina. On my review of her lumbar spine she has a chronic severe T12 fracture and chronic L1 fracture which appears worse than 1 year ago. No acute fractures. After IV morphine 6 mg she still has significant pain stating it went from 15/10 to 12/10 so another dose was ordered. She cannot perform ADLs such as getting dressed or driving which she normally does independently and she lives alone so I discussed admission and she is agreeable. I will discuss the case with the hospitalist. I have personally performed a face to face assessment of the patient and have reviewed the LÁZAR[facility] Note. I performed a substantive portion of the visit including all aspects of the following. My john findings include: History is [84-year-old female history of chronic back pain with prior lumbar compression fracture. Patient states about a week ago she was lifting and carrying things and since that time has had increased back pain. It is right-sided and at times radiates to her right hip area. Denies any fall or other injury. No fever. No leg weakness. No bowel or bladder incontinence. No prior back surgery. Currently her primary care physician has her on anti-inflammatories, prednisone and a muscle relaxant.] Exam is [84-year-old female sitting upright in bed. Vital signs are stable afebrile. Granddaughter at bedside. H EENT exam pupils round reactive light. Extra motions are intact. Moist membranes. Neck nontender. Lungs clear to auscultation bilaterally. Heart regular rhythm no murmur. Chest wall ribs nontender. Abdomen soft nontender. No pulsatile mass. Moving all 4 extremities. 5 out of 5 derrick hand strength. Dorsi plantarflexion intact. She does have 1+ pitting edema both lower extremities she has chronic lower extremity edema. She states it is worse over the last 2 weeks. Dorsi plantarflexion intact. No cauda equina. No saddle anesthesia. Normal medial thigh sensation. Back she has tenderness around her right SI joint. Also mildly over her lower lumbar spine. No ecchymosis or bruising. No redness or warmth. Her neck upper back and thoracic spine are nontender.] Medical Decision Making [84-year-old female known compression fractures. Increasing lower back pain. X-ray to be obtained. Treated with IV morphine and Zofran. Due to her increased lower extremity edema we will get screening labs to check her kidney function.] Other additions or changes: [None] Lab Data Labs: Laboratory Results - last 24 hr 11/25/24 10:30 WBC 7.2 RBC 4.28 Hgb 10.4 L Hct 34.1 L MCV 79.7 L MCH 24.3 L MCHC 30.5 L RDW Std Deviation 44.2 H RDW Coeff of Arturo 15.4 H Plt Count 305 MPV 9.8 Immature Gran % (Auto) 0.700 Neut % (Auto) 70.5 H Lymph % (Auto) 16.1 L Karnes % (Auto) 11.8 H Eos % (Auto) 0.6 Baso % (Auto) 0.3 Absolute Neuts (auto) 5.1 Absolute Lymphs (auto) 1.16 Nucleated RBC % 0 Sodium 135 Potassium 4.1 Chloride 100 Carbon Dioxide 25.5 Anion Gap 10 BUN 27 H Creatinine 0.50 L Est GFR (MDRD) Non-Af 92 BUN/Creatinine Ratio 53.3 H Glucose 120 H Calcium 8.9 Radiography Diagnostic Testing: Clinical Impression(s) from Imaging Studies Lumbar Spine X-Ray 11/25/24 10:45 IMPRESSION: ADVANCED DEGENERATIVE CHANGES OF THE LUMBAR SPINE. Reading Location: [id number] <Dr. Payam Aldridge MD - Last Filed: 11/25/24 11:00> [facility] Narrative Medical decision making narrative: I have personally performed a face to face assessment of the patient and have reviewed the LÁZARO Note. I performed a substantive portion of the visit including all aspects of the following. My john findings include: History is [84-year-old female history of chronic back pain with prior lumbar compression fracture. Patient states about a week ago she was lifting and carrying things and since that time has had increased back pain. It is right-sided and at times radiates to her right hip area. Denies any fall or other injury. No fever. No leg weakness. No bowel or bladder incontinence. No prior back surgery. Currently her primary care physician has her on anti-inflammatories, prednisone and a muscle relaxant.] Exam is [84-year-old female sitting upright in bed. Vital signs are stable afebrile. Granddaughter at bedside. H EENT exam pupils round reactive light. Extra motions are intact. Moist membranes. Neck nontender. Lungs clear to auscultation bilaterally. Heart regular rhythm no murmur. Chest wall ribs nontender. Abdomen soft nontender. No pulsatile mass. Moving all 4 extremities. 5 out of 5 derrick hand strength. Dorsi plantarflexion intact. She does have 1+ pitting edema both lower extremities she has chronic lower extremity edema. She states it is worse over the last 2 weeks. Dorsi plantarflexion intact. No cauda equina. No saddle anesthesia. Normal medial thigh sensation. Back she has tenderness around her right SI joint. Also mildly over her lower lumbar spine. No ecchymosis or bruising. No redness or warmth. Her neck upper back and thoracic spine are nontender.] Medical Decision Making [84-year-old female known compression fractures. Increasing lower back pain. X-ray to be obtained. Treated with IV morphine and Zofran. Due to her increased lower extremity edema we will get screening labs to check her kidney function.] Other additions or changes: [None] History & Record Review Discussion w/independent historian: Patient and Family Additional record(s) reviewed:: Prior inpatient record, Prior outpatient record, Prior ED visit and Prior labs Lab Data Attestation: I reviewed the patient's lab results. Lab results narrative: CBC shows white count 7.2. H&H 10.4 and 34. Platelets 305. Consistent with her prior labs and chronic anemia. Labs: Laboratory Results - last 24 hr 11/25/24 10:30 WBC 7.2 RBC 4.28 Hgb 10.4 L Hct 34.1 L MCV 79.7 L MCH 24.3 L MCHC 30.5 L RDW Std Deviation 44.2 H RDW Coeff of Arturo 15.4 H Plt Count 305 MPV 9.8 Immature Gran % (Auto) 0.700 Neut % (Auto) 70.5 H Lymph % (Auto) 16.1 L Karnes % (Auto) 11.8 H Eos % (Auto) 0.6 Baso % (Auto) 0.3 Absolute Neuts (auto) 5.1 Absolute Lymphs (auto) 1.16 Nucleated RBC % 0 Sodium 135 Potassium 4.1 Chloride 100 Carbon Dioxide 25.5 Anion Gap 10 BUN 27 H Creatinine 0.50 L Est GFR (MDRD) Non-Af 92 BUN/Creatinine Ratio 53.3 H Glucose 120 H Calcium 8.9 Radiography Diagnostic Testing: Clinical Impression(s) from Imaging Studies Lumbar Spine X-Ray 11/25/24 10:45 IMPRESSION: ADVANCED DEGENERATIVE CHANGES OF THE LUMBAR SPINE. Reading Location: [facility] Discharge Plan Triage Chief Complaint: Back ED Midlevel Provider: Lashawn Crocker ED Provider: Payam Aldridge Dx/Rx/DC Orders Clinical Impression: Intractable low back pain, DDD (degenerative disc disease), lumbar Prescriptions: No Action multivitamin Tablet 1 tab PO DAILY Mucinex 1,200 mg tablet extended release 12hr 1,200 mg PO BID potassium chloride 20 mEq tablet extended release 20 meq PO Patient Comments: Take 1 (ONE) Tablet orally twice per Day fluticasone propionate 50 mcg/actuation spray,suspension 1 spray intranasal DAILY Rx Instructions: administer into each nostril calcium carbonate [Tums] 200 mg calcium (500 mg) tablet,chewable 200 mg PO BID cholecalciferol (vitamin D3) 10 mcg (400 unit) capsule 10 mcg PO DAILY [id number] 100 mg-150 mg- 50 mg-150 mg capsule PO magnesium 250 mg tablet 250 mg PO DAILY calcium carbonate [Calcium 600] 600 mg calcium (1,500 mg) tablet 600 mg PO DAILY melatonin 3 mg capsule 3 mg PO HS PRN metoprolol succinate 25 mg tablet extended release 24 hr 25 mg PO DAILY Patient Comments: RATE CONTROL, STARTED DROPPING HEART BEATS hydrochlorothiazide 12.5 MG tablet 12.5 mg PO DAILY acetaminophen 500 MG tablet 1,000 mg PO Q8H PRN PRN (Reason: Mild Pain (-10/23)) 0RF meclizine 12.5 MG tablet 12.5 mg PO TID Qty: 90 0RF Primary Care Provider: Leandro Lua Chi Referrals: Leandro Lua Chi, MD [Primary Care Provider] - Print Language: Maldivian
[2024-11-25] MEDS: Ondansetron 4 MG/2 ML Vial IV (10:31)
[2024-11-25] MEDS: morphine 8 MG/ML Syringe 6 MG IV ×2 (10:31→11:32)
[2024-11-25 10:43] LABS: Absolute Lymphocyte Count 1.16 X10^3/uL (0.83-4.51); Absolute Neutrophil Count 5.1 X10^3/uL (2.0-7.7); Basophil# 0.02 X10^3/uL; Basophil% 0.3 % (0-1); Eosinophil# 0.04 X10^3/uL; Eosinophils% 0.6 % (0-5); Hematocrit 34.1 % (37-47); Hemoglobin 10.4 g/dL (12.0-15.0); Lymphocyte # 1.16 X10^3/ul (0.83-4.51); Lymphocyte % 16.1 % (19-41); Mean Corp Hgb Conc 30.5 g/dL (32-36); Mean Corpuscular Hgb 24.3 pg (27.0-32.0); Mean Corpuscular Volume 79.7 fL (81-99); Mean Platelet Vol. 9.8 fl (6.2-12.0); Monocyte# 0.85 X10^3/uL; Monocyte% 11.8 % (0-10); NRBC Flagged by Analyzer 0 % (0-5); Neutrophil # 5.08 X10^3/uL (2.7-7.7); Neutrophil % 70.5 % (47-70); Platelet Count 305 K/mm3 (150-450); RBC Distribution Width CV 15.4 % (11.6-14.6); RBC Distribution Width SD 44.2 fl (35.1-43.9); Red Blood Count 4.28 M/mm3 (4.2-5.4); White Blood Count 7.2 K/mm3 (4.4-11.0)
--- NOTE | 2024-11-25 10:45 | RAD_ITS ---
PROCEDURE: LUMBAR SPINE 2 OR 3 VIEWS 11/25/2024 REASON FOR EXAM: PAIN TECHNIQUE: 2 view(s) of the lumbar spine COMPARISON: None. FINDINGS: Vertebrae: Chronic severe T12 and mild L1 vertebral body compression fracture deformities. The vertebral body heights are otherwise maintained. No acute fracture visualized. Diffuse osseous demineralization. Discs: Advanced multilevel disc space narrowing with endplate osteophytes. Alignment: Grade 1 anterolisthesis of L1 onto L2, L2 onto L3, L3 onto L4, and grade 2 anterolisthesis of L4 onto L5. Other: Calcification of the thoracic aorta. Scattered abdominal surgical clips. RAD/Lumbar Spine 2 or 3 Views IMPRESSION: ADVANCED DEGENERATIVE CHANGES OF THE LUMBAR SPINE. Reading Location: [id number]
[2024-11-25 10:57] LABS: Anion Gap 10 (5-15); BUN 27 mg/dL (4-19); BUN/Creat Ratio 53.3 RATIO (10-20); Calcium,Total 8.9 mg/dL (7.6-11.0); Carbon Dioxide 25.5 mmol/L (21.0-32.0); Chloride 100 mmol/L (98-108); EST Glomerular Filtration Rate 92 (>60); Glucose 120 mg/dL (70-99); Potassium 4.1 mmol/L (3.3-5.1); Sodium Level 135 mmol/L (133-145)
[2024-11-25 11:30] VITALS: BMI 36.1
--- NOTE | 2024-11-25 11:36 | PCM.HP.STD ---
HPI - General General Date of Admission: 11/25/24 Date of Service: 11/25/24 Chief Complaint: Intractable back pain HPI Narrative TORSTEN COLINDRES, is a 84 F who presented to the emergency department at [facility] on 11/25/2024 with a chief complaint of intractable back pain. Patient reported on presentation she has had intermittent low back pain since about 8 years ago when she sustained compression fractures at T12 and L1. About a week ago she was doing some housekeeping and lifting shoe boxes of paint supplies out of the schwartz closet at which time she developed increasing low back pain on the right side. She saw her primary care doctor about 4 days ago and was given an IM shot of a muscle relaxer, anti-inflammatory and was prescribed prednisone, Ultram, and a muscle relaxant to take at bedtime. She was also taking Tylenol 650 mg 3 times a day. It was helping until about 2 days ago when she had an ophthalmology procedure and was moving around for procedure done at the office and she developed worsening low back pain. At baseline she has been utilizing a walker but having more difficulty with her ADLs and IADLs. She lives alone at baseline. Her granddaughter helps her and recently has had such severe pain that her granddaughter has had to move her legs in and out of the car. She denied any lower extremity weakness. She denied any changes in bladder or bowel function. She has no saddle anesthesia. Vital signs on presentation showed temperature of 98.9, heart rate 66, respiratory 18, blood pressure was 149/66 and pulse ox was 97% on room air. CBC shows a microcytic anemia that appears to be chronic and stable. Chemistry panel was unremarkable. UA is pending. Lumbar spine x-rays show advanced degenerative changes but no acute abnormalities. 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 CT of the lumbar spine shows stable findings as previously observed on previous imaging. [facility] Medical History Hemorrhoids Cancer Arthritis Hypertension GERD (gastroesophageal reflux disease) Constipation BPPV (benign paroxysmal positional vertigo) Compression fracture of L1 lumbar vertebra Home Medications ?Medication ?Instructions ?Recorded ?Last Taken ?Type calcium carbonate (Calcium 600) 600 mg PO DAILY 04/24/22 11/24/24 History calcium carbonate (Tums) 200 mg PO BID PRN dyspepsia 04/24/22 11/23/24 History fluticasone propionate 50 2 spray intranasal DAILY 04/24/22 Unknown History mcg/actuation nasal spray,suspension metoprolol succinate 25 mg 25 mg PO DAILY 04/24/22 11/24/24 History tablet,extended release 24 hr multivitamin 1 tab PO DAILY 04/24/22 11/24/24 History acetaminophen 650 mg 650 mg PO Q8H PRN pain 11/25/24 11/25/24 History tablet,extended release (Arthritis Pain Relief (acetaminophen) ER) baclofen 10 mg tablet 10 mg PO QHS MUSCLE SPASM 11/25/24 11/24/24 History cholecalciferol (vitamin D3) 25 25 mcg PO DAILY 11/25/24 11/24/24 History mcg (1,000 unit) capsule (Vitamin D3) cranberry 500 mg capsule 500 mg PO DAILY 11/25/24 Unknown History dorzolamide 22.3 mg-timolol 6.8 1 drp ophthalmic (eye) BID 11/25/24 Unknown History mg/mL eye drops guaifenesin 600 mg tablet, 600 mg PO BID PRN congestion 11/25/24 Unknown History extended release 12 hr (Mucinex) hydrochlorothiazide 25 mg tablet 25 mg PO DAILY 11/25/24 11/24/24 History ketorolac 0.5 % eye drops 1 drp ophthalmic (eye) TID 11/25/24 11/25/24 History magnesium oxide 400 mg (241.3 mg 400 mg PO DAILY 11/25/24 11/24/24 History magnesium) tablet meclizine 12.5 mg tablet 12.5 mg PO TID PRN dizziness 11/25/24 Unknown History melatonin 5 mg tablet 5 mg PO QHS PRN sleep 11/25/24 Unknown History naproxen 250 mg tablet 250 mg PO BID 11/25/24 11/24/24 History pantoprazole 40 mg tablet,delayed 40 mg PO DAILY 11/25/24 11/24/24 History release prednisone 10 mg tablet See Taper PO .COMPLEX 11/25/24 11/24/24 History Allergy/AdvReac Type Severity Reaction Status Date / Time norfloxacin (From Noroxin) Allergy unknown Verified 04/12/25 09:26 polymyxin B Allergy Swelling Verified 11/25/24 09:26 levofloxacin (From Levaquin) AdvReac Diarrhea Verified 11/25/24 09:26 phenylephrine (From Sudafed AdvReac Other Verified 11/25/24 09:26 PE) Surgical History History of gastric bypass History of hysterectomy Hx of shoulder replacement History of knee replacement Social History Smoking Status: Former smoker ROS Constitutional Constitutional: Denies anorexia, change in weight, chills, fatigue, fever(s), malaise, night sweats, weakness or other Eyes Eyes: Denies blurry vision, change in eye color, change in vision, discharge from eye(s), double vision, erythema, eye pain, loss of vision or other ENT HEENT: Denies abnormal hearing, dysphagia, ear pain, epistaxis, headache(s), hearing loss, nasal congestion, nasal discharge, post nasal drip, sinus pressure, sore throat or other Cardiovascular Cardiovascular: Denies chest pain, claudication, dyspnea on exertion, edema, lightheadedness, orthopnea, palpitations, paroxysmal nocturnal dyspnea, rapid heart rate, syncope or other Respiratory/Chest Respiratory/Chest: Denies cough, dyspnea, excessive phlegm production, hemoptysis, productive cough, shortness of breath at rest, shortness of breath with exertion, wheezing or other Gastrointestinal Gastrointestinal: Denies abdominal pain, coffee ground emesis, constipation, diarrhea, dyspepsia, hematemesis, hematochezia, loose stools, melena, nausea, vomiting or other Genitourinary Genitourinary: Denies burning urination, difficulty urinating, dysuria, hematuria, nocturia, urinary frequency, urinary hesitancy, urinary incontinence, urinary urgency or other Musculoskeletal Musculoskeletal: Reports back pain; Denies arthralgias, joint pain, joint stiffness, joint swelling, myalgias, neck pain or other Neurologic Neurologic: Reports abnormal gait; Denies abnormal speech, confusion, disequilibrium, dizziness, focal weakness, headache(s), numbness, paresthesias, seizure-like activity, seizures, syncope, tingling, tremor(s) or other Psychiatric Psychiatric: Denies anxiety, depression, homicidal ideation, suicidal ideation or other Endocrine Endocrinology: Denies change in body appearance, cold intolerance, excessive sweating, heat intolerance, polydipsia, polyuria or other Hematologic/Lymphatic Hematologic/Lymphatic: Denies anemia, easy bleeding, easy bruising, lymphadenopathy or other Allergic/Immunologic Allergic/Immunologic: Denies rhinitis, hives, eczemia, asthma or other Vital Signs Vital Signs Vital Signs: 11/25/24 09:27 Temperature 98.9 F Temperature Source Oral Pulse Rate 66 Respiratory Rate 18 Blood Pressure 149/66 H Blood Pressure Mean 93 Pulse Ox 97 Oxygen Delivery Method Room Air Weight Weight: 98.4 kg Body Mass Index (BMI) 36.1 Physical Exam Const alert, oriented x3, no apparent distress, healthy appearing and well nourished; Negative for average body habitus Constitutional Narrative: Obese, very pleasant, elderly, white female, lying in bed side of her back, currently appears comfortable, nontoxic HEENT normocephalic, head/scalp atraumatic and hearing grossly normal bilaterally Resp normal respiratory effort, no retractions, no use of accessory muscles and clear to auscultation bilaterally Auscultation: Negative for rales, rhonchi or wheezes Cardio regular rate, regular rhythm, S1 normal heart sound, S2 normal heart sound, no murmurs, no rub, no gallops and no clicks GI normal to inspection, nondistended, normoactive bowel sounds, soft to palpation and non-tender Extremity Extremity Narrative: bilateral lower extremity pitting edema, most notable in the feet but does extend up into the distal lower extremities Neuro oriented x3, moves all extremities and no focal motor deficits Neuro Narrative: Mobility is limited due to pain but no focal deficits Speech: speech normal Psych affect normal Psych Narrative: Very pleasant, talkative, interacts appropriately Results Lab / Micro Data 11/25/24 10:30 11/25/24 10:30 Labs: Laboratory Results - last 24 hr 11/25/24 10:30: WBC 7.2, RBC 4.28, Hgb 10.4 L, Hct 34.1 L, MCV 79.7 L, MCH 24.3 L, MCHC 30.5 L, RDW Std Deviation 44.2 H, RDW Coeff of Arturo 15.4 H, Plt Count 305, MPV 9.8, Immature Gran % (Auto) 0.700, Neut % (Auto) 70.5 H, Lymph % (Auto) 16.1 L, [place] % (Auto) 11.8 H, Eos % (Auto) 0.6, Baso % (Auto) 0.3, Absolute Neuts (auto) 5.1, Absolute Lymphs (auto) 1.16, Nucleated RBC % 0, Sodium 135, Potassium 4.1, Chloride 100, Carbon Dioxide 25.5, Anion Gap 10, BUN 27 H, Creatinine 0.50 L, Est GFR (MDRD) Non-Af 92, BUN/Creatinine Ratio 53.3 H, Glucose 120 H, Calcium 8.9 Imaging Radiology Impression Lumbar Spine X-Ray 11/25/24 10:45 IMPRESSION: ADVANCED DEGENERATIVE CHANGES OF THE LUMBAR SPINE. 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 BNP -Patient without any shortness of breath History of BPPV -Hold home meclizine -Currently asymptomatic Insomnia -Continue home melatonin Essential hypertension -Continue home hydrochlorothiazide -Continue home metoprolol History of vitamin D deficiency -Continue supplementation GERD -Continue home PPI Seasonal allergies -Continue home nasal spray DVT prophylaxis -Enoxaparin 40 daily CODE STATUS -DNR CCA with no intubation Charges/Coding Visit Charges Inpatient E&M: 13108 Init Hosp L2
--- NOTE | 2024-11-25 11:52 | CT_ITS ---
PROCEDURE: SPINE LUMBAR WITHOUT CONTRAST 11/25/2024 REASON FOR EXAM: PAIN WITH H/O FXS TECHNIQUE: Lumbar spine CT without contrast. Coronal and Sagittal reconstruction series were provided. One or more dose reduction techniques were used (e.g., Automated exposure control, adjustment of the mA and/or kV according to patient size, use of iterative reconstruction technique COMPARISON: Same day L-spine radiographs. RADIATION DOSE SUMMARY: CTDlvol: 26 mGy DLP: 900 mGycm FINDINGS: Vertebrae: Diffuse osseous demineralization. Re-demonstration of severe T12 and moderate L1 vertebral body compression fracture deformities. The vertebral body heights are otherwise maintained. No acute fracture. Multilevel degenerative disc disease with vacuum effect. Alignment: Grade 1 anterolisthesis of L1 onto L2, L2 onto L3, L3 onto L4, and grade 2 anterolisthesis of L4 onto L5. No traumatic listhesis. Sacrum: Unremarkable. Chronic rib fracture deformities. Calcific plaque of the aortoiliac vessels. Hiatal hernia. Severe mitral annular calcifications. Bibasilar fibrosis. CT/Spine Lumbar without Contrast IMPRESSION: NO ACUTE LUMBAR FRACTURE. DEGENERATIVE CHANGES. Reading Location: [id number]
[2024-11-25 12:08] VITALS: BP 110/64; PULSE 74; RESP 14; TEMP 36.6; O2SAT 92
[2024-11-25 14:40] VITALS: BP 134/73; PULSE 69; RESP 16; TEMP 36.8; O2SAT 98
[2024-11-25] MEDS: Gabapentin 100 MG Capsule PO (16:39)
[2024-11-25] MEDS: Acetaminophen 500 MG Tablet 1000 MG PO ×2 (16:40→21:56)
[2024-11-25] MEDS: oxyCODONE 5 MG Tablet PO ×2 (16:40→22:04)
[2024-11-25 16:56] LABS: Vitamin D,25 Hydroxy 36.3 ng/mL (30-100)
--- NOTE | 2024-11-25 19:21 | VDLE_ITS ---
Reason For Study Reason For Study: BLE Swelling RIGHT LEFT GSV is normal. GSV is normal. CFV is compressible, spontaneous, phasic, competent CFV is compressible, spontaneous, phasic, competent, and demonstrates normal augmentation. and demonstrates normal augmentation. FV is compressible, spontaneous, phasic, competent FV is compressible, spontaneous, phasic, competent and demonstrates normal augmentation. and demonstrates normal augmentation. POP V is compressible, spontaneous, phasic, competent POP V is compressible, spontaneous, phasic, competent and demonstrates normal augmentation. and demonstrates normal augmentation. T/P Trunk is compressible. T/P Trunk is compressible. PTV is compressible. PTV is compressible. RT PerV is compressible. LT PerV is compressible. Procedure This is a venous duplex using B-mode, color flow and spectral Doppler. Exam performed portable in patient room. The exam was diagnostic. A preliminary report was called and/or faxed to M/S 3 copier operator. VL/Venous Duplex US - [place] Extrem Interpretation Summary Deep veins of the bilateral lower extremities are patent and compressible segme ntally. There is no evidence of bilateral lower extremity deep vein thrombosis. The bilateral great saphenous veins appea r patent and compressible segmentally. Ordering Physician: Tonya Cortez Referring Physician: Leandro Lua Chi Performed By: Kishor Conley RVT
[2024-11-25 21:00] VITALS: BP 140/52; PULSE 65; RESP 13; TEMP 36.3; O2SAT 96
[2024-11-25] MEDS: Lidocaine 5% Patch 1 PATCH TOPICAL (21:54)
[2024-11-25] MEDS: Dorzolamide HCL/Timolol 10 ml Bottle 1 DRP EACH EYE (21:54)
[2024-11-25] MEDS: guaiFENesin 1,200 MG Tablet 1200 MG PO (21:55)
[2024-11-25] MEDS: Senna/Docusate Sodium 1 Tablet 2 TABLET PO (21:56)
[2024-11-26] MEDS: HYDROmorphone 0.5 MG/0.5 ML SYRINGE IV ×2 (02:20→09:00)
[2024-11-26] MEDS: 0.9% Saline Lock 10 ML Syringe IV ×2 (02:21→09:01)
[2024-11-26 03:00] VITALS: BP 102/51; PULSE 60; RESP 13; TEMP 36.6; O2SAT 95
[2024-11-26 04:22] LABS: Absolute Lymphocyte Count 1.13 X10^3/uL (0.83-4.51); Absolute Neutrophil Count 3.5 X10^3/uL (2.0-7.7); Basophil# 0.02 X10^3/uL; Basophil% 0.4 % (0-1); Eosinophil# 0.12 X10^3/uL; Eosinophils% 2.2 % (0-5); Hematocrit 29.8 % (37-47); Lymphocyte # 1.13 X10^3/ul (0.83-4.51); Lymphocyte % 21.1 % (19-41); Mean Corp Hgb Conc 30.2 g/dL (32-36); Mean Corpuscular Hgb 24.4 pg (27.0-32.0); Mean Corpuscular Volume 80.8 fL (81-99); Mean Platelet Vol. 10.1 fl (6.2-12.0); Monocyte# 0.56 X10^3/uL; Monocyte% 10.4 % (0-10); NRBC Flagged by Analyzer 0 % (0-5); Neutrophil # 3.48 X10^3/uL (2.7-7.7); Platelet Count 244 K/mm3 (150-450); RBC Distribution Width CV 15.5 % (11.6-14.6); RBC Distribution Width SD 45.6 fl (35.1-43.9); Red Blood Count 3.69 M/mm3 (4.2-5.4); White Blood Count 5.4 K/mm3 (4.4-11.0)
[2024-11-26 05:01] LABS: ALB/GLOB Ratio 1.6 RATIO (0.9-2.4); AST(SGOT) 18 U/L (<=31); Alanine Aminotransfer ALT/SGPT 15 U/L (<=34); Alkaline Phosphatase 51 U/L (35-104); Anion Gap 9 (5-15); BUN 21 mg/dL (4-19); BUN/Creat Ratio 49.1 RATIO (10-20); Calcium,Total 8.2 mg/dL (7.6-11.0); Carbon Dioxide 24.4 mmol/L (21.0-32.0); Chloride 102 mmol/L (98-108); Creatinine, Serum 0.43 mg/dL (0.70-1.20); EST Glomerular Filtration Rate 96 (>60); Estimated Creatinine Clearance 60.79 ml/min (50-250); Globulin 1.9 g/dL (2.2-4.2); Glucose 116 mg/dL (70-99); Phosphorus 3.5 mg/dL (2.7-4.5); Potassium 3.6 mmol/L (3.3-5.1); Protein, Total 4.9 g/dL (5.9-8.4); Sodium Level 135 mmol/L (133-145); Total Bilirubin 0.37 mg/dL (0.00-1.30)
[2024-11-26] MEDS: Acetaminophen 500 MG Tablet 1000 MG PO ×3 (05:01→20:50)
[2024-11-26 05:57] LABS: Pro- Brain NATRIURETIC PEPTIDE 911 pg/mL (<=1800)
[2024-11-26 07:48] VITALS: O2SAT 91
[2024-11-26] MEDS: Magnesium Chloride 64 MG Delay Rel.Tablet 128 MG PO (09:05)
[2024-11-26] MEDS: Dorzolamide HCL/Timolol 10 ml Bottle 1 DRP EACH EYE ×2 (09:06→20:48)
[2024-11-26] MEDS: Fluticasone 0.05% 1 SPRAY NASAL.SRY NASAL (09:07)
[2024-11-26] MEDS: hydroCHLOROthiazide 12.5mg 12.5 MG PO (09:08)
[2024-11-26] MEDS: Lidocaine 5% Patch 1 PATCH TOPICAL (09:08)
[2024-11-26] MEDS: Enoxaparin 40 MG/0.4 ML Syringe SC (09:09)
[2024-11-26] MEDS: Senna/Docusate Sodium 1 Tablet 2 TABLET PO ×2 (09:12→20:50)
[2024-11-26 09:13] VITALS: BP 119/61; PULSE 63
[2024-11-26] MEDS: Metoprolol(XL)Succ 25 MG Tablet PO (09:13)
[2024-11-26] MEDS: Gabapentin 100 MG Capsule PO ×3 (09:19→18:23)
[2024-11-26] MEDS: Pantoprazole Sodium 40 MG Tablet PO (09:19)
[2024-11-26 10:00] VITALS: BP 119/61; PULSE 63; RESP 14; TEMP 36.9; O2SAT 97
[2024-11-26 13:00] VITALS: BP 110/58; PULSE 62; RESP 14; TEMP 36.4; O2SAT 98
[2024-11-26] MEDS: Celecoxib 100 MG Capsule PO (13:15)
--- NOTE | 2024-11-26 14:07 | PN.HOSP_ITS ---
Reason for Visit Reason for Visit: Intractable low back pain Subjective Subjective Patient states she still having considerable pain. She states she is better at rest but mobility is very difficult for her. We did discuss the fact that we can consult pain management to be seen tomorrow to see if she is a candidate for anything that they can offer here. We did add Celebrex and discussed the risk and benefits. It will be for short 5-day course. Objective Data Objective Data Vital Signs: Vital Signs Temp Pulse Resp BP Pulse Ox O2 Del Method 98.4 F 63 14 119/61 97 Room Air 11/26/24 10:00 11/26/24 10:00 11/26/24 10:00 11/26/24 10:00 11/26/24 10:00 11/26/24 10:00 Oxygen Delivery Method Room Air Weight: 98.4 kg Body Mass Index (BMI) 36.1 Intake & Output: Intake and Output for Last 24 Hours 11/24/24 11/25/24 11/26/24 23:59 23:59 23:59 Output Total 325 / 325 Balance -325 / -325 Lab / Micro Data 11/26/24 03:59 11/26/24 03:59 Labs: Laboratory Results - last 24 hr 11/25/24 10:30: Vitamin D 25-Hydroxy 36.3 11/26/24 03:59: WBC 5.4, RBC 3.69 L, Hgb 9.0 L, Hct 29.8 L, MCV 80.8 L, MCH 24.4 L, MCHC 30.2 L, RDW Std Deviation 45.6 H, RDW Coeff of Arturo 15.5 H, Plt Count 244, MPV 10.1, Immature Gran % (Auto) 0.900, Neut % (Auto) 65.0, Lymph % (Auto) 21.1, [place] % (Auto) 10.4 H, Eos % (Auto) 2.2, Baso % (Auto) 0.4, Absolute Neuts (auto) 3.5, Absolute Lymphs (auto) 1.13, Nucleated RBC % 0, Sodium 135, Potassium 3.6, Chloride 102, Carbon Dioxide 24.4, Anion Gap 9, BUN 21 H, C reatinine 0.43 L, Estim Creat Clear Calc 60.79, Est GFR (MDRD) Non-Af 96, B UN/Creatinine Ratio 49.1 H, Glucose 116 H, Calcium 8.2, Phosphorus 3.5, Magnesium 2.0, Total Bilirubin 0.37, AST 18, ALT 15, Alkaline Phosphatase 51, NT pro BNP II 911, Total Protein 4.9 L, Albumin 3.0 L, Globulin 1.9 L, Albumin/Globulin Ratio 1.6, TSH 2.950 Physical Exam Const alert, oriented x3, no apparent distress, healthy appearing and well nourished; Negative for average body habitus Constitutional Narrative: Obese, very pleasant, elderly, white female, lying in bed side of her back, currently appears comfortable, nontoxic, visitor at bedside Resp normal respiratory effort, no retractions, no use of accessory muscles and clear to auscultation bilaterally Auscultation: Negative for rales, rhonchi or wheezes Cardio regular rate, regular rhythm, S1 normal heart sound, S2 normal heart sound, no murmurs, no rub, no gallops and no clicks GI normal to inspection, nondistended, normoactive bowel sounds, soft to palpation and non-tender Extremity Extremity Narrative: bilateral lower extremity pitting edema, most notable in the feet but does extend up into the distal lower extremities Neuro moves all extremities and no focal motor deficits Neuro Narrative: Mobility is limited due to pain but no focal deficits Speech: speech normal Psych affect normal Psych Narrative: Very pleasant, talkative, interacts appropriately Assessment & Plan Assessment/Plan (1) Intractable low back pain: PLAN: Plan Intractable back pain with known history of severe T12 and mild L1 lumbar compression fractures suspect related to osteoporosis -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 Lower extremity bilateral edema -Bilateral lower extremity Dopplers are pending -TSH is within normal limits -BNP is within normal limits -Patient without any shortness of breath History of BPPV -Hold home meclizine -Currently asymptomatic Insomnia -Continue home melatonin Essential hypertension -Continue home hydrochlorothiazide -Continue home metoprolol History of vitamin D deficiency -Continue supplementation GERD -Continue home PPI Seasonal allergies -Continue home nasal spray DVT prophylaxis -Enoxaparin 40 daily CODE STATUS -DNR CCA with no intubation Charges/Coding Visit Charges Inpatient E&M: 69852 Subs Hosp L2
[2024-11-26] MEDS: oxyCODONE 5 MG Tablet PO (18:23)
[2024-11-26 20:42] VITALS: BP 112/45; PULSE 66; RESP 16; TEMP 36.9; O2SAT 96
[2024-11-27 03:30] VITALS: BP 130/83; PULSE 65; RESP 18; TEMP 36.8; O2SAT 93
[2024-11-27] MEDS: oxyCODONE 5 MG Tablet PO ×4 (04:24→23:34)
[2024-11-27] MEDS: tiZANidine HCl 2 MG Tablet 4 MG PO ×2 (04:24→14:00)
[2024-11-27] MEDS: Acetaminophen 500 MG Tablet 1000 MG PO ×3 (04:24→22:17)
[2024-11-27 06:34] LABS: Hematocrit 30.3 % (37-47); Hemoglobin 9.3 g/dL (12.0-15.0); Mean Corp Hgb Conc 30.7 g/dL (32-36); Mean Corpuscular Hgb 24.6 pg (27.0-32.0); Mean Corpuscular Volume 80.2 fL (81-99); Mean Platelet Vol. 9.7 fl (6.2-12.0); Platelet Count 234 K/mm3 (150-450); RBC Distribution Width CV 15.5 % (11.6-14.6); Red Blood Count 3.78 M/mm3 (4.2-5.4); White Blood Count 5.7 K/mm3 (4.4-11.0)
[2024-11-27 06:53] LABS: Anion Gap 8 (5-15); BUN 15 mg/dL (4-19); BUN/Creat Ratio 34.3 RATIO (10-20); Calcium,Total 8.3 mg/dL (7.6-11.0); Carbon Dioxide 25.3 mmol/L (21.0-32.0); Chloride 102 mmol/L (98-108); Creatinine, Serum 0.45 mg/dL (0.70-1.20); EST Glomerular Filtration Rate 95 (>60); Estimated Creatinine Clearance 60.79 ml/min (50-250); Glucose 126 mg/dL (70-99); Potassium 3.4 mmol/L (3.3-5.1); Sodium Level 135 mmol/L (133-145)
[2024-11-27 07:15] VITALS: O2SAT 93
[2024-11-27 08:00] VITALS: BP 131/43; PULSE 92; RESP 16; TEMP 36.6; O2SAT 93
[2024-11-27] MEDS: Multivitamins,Therapeutic Tablet 1 TABLET PO (08:15)
[2024-11-27] MEDS: Gabapentin 100 MG Capsule PO ×3 (08:15→16:35)
[2024-11-27] MEDS: Calcium (Elemental) 500 MG Tablet PO (08:16)
--- NOTE | 2024-11-27 08:21 | PCM.PN.HOSP ---
Subjective Subjective Doing well, still has back pain awaiting pain management evaluation Objective Data Objective Data Vital Signs: Vital Signs Temp Pulse Resp BP Pulse Ox O2 Del Method 98.2 F 65 18 130/83 H 93 Room Air 11/27/24 03:30 11/27/24 03:30 11/27/24 03:30 11/27/24 03:30 11/27/24 03:30 11/27/24 03:30 Oxygen Delivery Method Room Air Weight: 216 lb 14.958 oz Body Mass Index (BMI) 36.1 Intake & Output: Intake and Output for Last 24 Hours 11/26/24 11/27/24 11/28/24 03:59 03:59 03:59 Intake Total 150 / 150 350 / 350 Output Total 325 / 325 425 / 425 375 / 375 Balance -325 / -325 -275 / -275 - / Lab / Micro Data 11/27/24 06:20 11/27/24 06:20 Labs: Laboratory Results - last 24 hr 11/27/24 06:20: WBC 5.7, RBC 3.78 L, Hgb 9.3 L, Hct 30.3 L, MCV 80.2 L, MCH 24.6 L, MCHC 30.7 L, RDW Std Deviation 45.0 H, RDW Coeff of Arturo 15.5 H, Plt Count 234, MPV 9.7, Sodium 135, Potassium 3.4, Chloride 102, Carbon Dioxide 25.3, Anion Gap 8, BUN 15, Creatinine 0.45 L, Estim Creat Clear Calc 60.79, Est GFR (MDRD) Non-Af 95, BUN/Creatinine Ratio 34.3 H, Glucose 126 H, Calcium 8.3 Physical Exam Narrative General: Alert, Oriented x3, Cooperative, No apparent distress HEENT: Atraumatic, PERRLA, EOMI, Normocephalic Oral: Moist Mucosa Neck: Supple, No JVD Lungs: Diminished, Normal air movement, No rhonchi, No wheeze, No rales Cardiovascular: Regular rate, Regular Rhythm, Normal S1, Normal S2, No murmurs Abdomen: Soft, Non Tender, Non-Distended, No Hepato-splenomegaly Extremities: Edema, Capillary Refill Less than 3 Seconds Skin: No rashes, No breakdown Musculoskeletal: Point tenderness to her lumbar spine Neurological: No focal neurological deficits, Motor Exam 5/5 strength throughout, Sensory exam intact to light touch and pain Psych/Mental Status: Normal Affect, Appropriate Assessment & Plan Assessment/Plan (1) Intractable low back pain: PLAN: Plan 1. 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 She is to be on a bisphosphonate ? PT/OT ? Pain management consult for possible kyphoplasty ? Continue with multimodal pain control ? Continue with her vitamin D replacement as well as her calcium 2. Essential HTN/bilateral edema ? Lower extremity Dopplers negative ? Continue with blood pressure medications ? Will monitor and make adjustments as necessary 3. Chronic microcytic anemia ? Will check an iron panel ? So far stable 4. GERD ? Stable ? Continue with PPI DVT: Lovenox Charges/Coding Visit Charges Inpatient E&M: 22760 Subs Hosp L2
[2024-11-27] MEDS: Senna/Docusate Sodium 1 Tablet 2 TABLET PO ×2 (09:26→22:16)
[2024-11-27] MEDS: Celecoxib 100 MG Capsule PO (09:26)
[2024-11-27] MEDS: Cholecalciferol (VIT D3) 25 MCG TABLET (1,000 UNITS) PO (09:27)
[2024-11-27 09:28] VITALS: PULSE 92
[2024-11-27] MEDS: Enoxaparin 40 MG/0.4 ML Syringe SC (09:28)
[2024-11-27] MEDS: Metoprolol(XL)Succ 25 MG Tablet PO (09:28)
[2024-11-27] MEDS: hydroCHLOROthiazide 12.5mg 12.5 MG PO (09:28)
[2024-11-27] MEDS: Lidocaine 5% Patch 1 PATCH TOPICAL (09:29)
[2024-11-27] MEDS: Magnesium Chloride 64 MG Delay Rel.Tablet 128 MG PO (09:29)
[2024-11-27] MEDS: Fluticasone 0.05% 1 SPRAY NASAL.SRY NASAL (09:36)
[2024-11-27] MEDS: Dorzolamide HCL/Timolol 10 ml Bottle 1 DRP EACH EYE ×2 (09:37→20:22)
[2024-11-27 10:05] LABS: Ferritin 19 ng/mL (22-378); Iron 21 ug/dL (50-170); Iron Binding Capacity,Total 357 ug/dL (250-450); Iron Binding Capacity,Unsat 336 ug/dL (228-428)
[2024-11-27] MEDS: Pantoprazole Sodium 40 MG Tablet PO (12:06)
--- NOTE | 2024-11-27 12:51 | CON.PCM_ITS ---
Assessment & Plan Assessment/Plan PLAN: Plan Plan for [facility] MRI without contrast to evaluate for acuity of compression fracture. Prior imaging from 2022 demonstrates T12 and L1 compression fractures at that time. However on comparison it appears that the L1 fracture may have progressed recently. This may suggest that there is some acuity to this worsening fracture at the L1 level that may be contributing to some of her severe pain symptomology. -Consider L1 kyphoplasty -Continue scheduled Tylenol 1000 g every 8hrs -Continue celebrex -Continue as needed oxycodone -Continue as needed Dilaudid 0.5 mg for breakthrough -Continue as needed tizanidine -Continue lidocaine patch -Vitamin D level is appropriate HPI Consult Data Date of Consult: 11/27/24 HPI Narrative Reason for Consultation: L1 compression fracture concern HPI Narrative: TORSTEN COLINDRES, is a 84 F who presents with known history of T12 and L1 compression fractures. Per prior records she had fractures at these levels since atleast 2022. . 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 She is to be on a bisphosphonate ? PT/OT ? Pain management consult for possible kyphoplasty ? Continue with multimodal pain control ? Continue with her vitamin D replacement as well as her calcium PFSH Medical History Hemorrhoids Cancer Arthritis Hypertension GERD (gastroesophageal reflux disease) Constipation BPPV (benign paroxysmal positional vertigo) Compression fracture of L1 lumbar vertebra Home Medications ?Medication ?Instructions ?Recorded ?Last Taken ?Type calcium carbonate (Calcium 600) 600 mg PO DAILY 11/24/24 History calcium carbonate (Tums) 200 mg PO BID PRN dyspepsia 04/24/22 11/23/24 History fluticasone propionate 50 2 spray intranasal DAILY 05/07 Unknown History mcg/actuation nasal spray,suspension metoprolol succinate 25 mg 25 mg PO DAILY 04/24/2207/10 History tablet,extended release 24 hr multivitamin 1 tab PO DAILY 04/24/2211/14 History acetaminophen 650 mg 650 mg PO Q8H PRN pain 11/2511/25/24 History tablet,extended release (Arthritis Pain Relief (acetaminophen) ER) baclofen 10 mg tablet 10 mg PO QHS MUSCLE SPASM 11/24/24 History cholecalciferol (vitamin D3) 25 25 mcg PO DAILY 11/24/24 History mcg (1,000 unit) capsule (Vitamin D3) cranberry 500 mg capsule 500 mg PO DAILY 11/25/24 Unk nown History dorzolamide 22.3 mg-timolol 6.8 1 drp ophthalmic (eye) BID 11/25/24 Unknown History mg/mL eye drops guaifenesin 600 mg tablet, 600 mg PO BID PRN congestio n 11/25/24 Unknown History extended release 12 hr (Mucinex) hydrochlorothiazide 25 mg tablet 25 mg PO DAILY 11/24/24 History ketorolac 0.5 % eye drops 1 drp ophthalmic (eye) TID 0 11/25/24 11/25/24 History magnesium oxide 400 mg (241.3 mg 400 mg PO DAILY 11/2511/24/24 History magnesium) tablet meclizine 12.5 mg tablet 12.5 mg PO TID PRN dizziness 11/25/24 Unknown History melatonin 5 mg tablet 5 mg PO QHS PRN sleep Unknown History naproxen 250 mg tablet 250 mg PO BID 11/25/2411/24 History pantoprazole 40 mg tablet,delayed 40 mg PO DAILY 11/2511/24/24 History release prednisone 10 mg tablet See Taper PO .COMPLEX 11/24/24 History Allergy/AdvReac Type Severity Reaction Status Date / Time norfloxacin (From Noroxin) Allergy unknown Verified 11/25/24 09:26 polymyxin B Allergy Swelling Verified 11/25/24 09:26 levofloxacin (From Levaquin) AdvReac Diarrhea Verified 11/25/24 09:26 phenylephrine (From Sudafed AdvReac Other Verified 11/25/24 09:26 PE) Surgical History History of gastric bypass History of hysterectomy Hx of shoulder replacement History of knee replacement Social History Smoking Status: Former smoker Lab / Micro Data 11/27/24 06:20 11/27/24 06:20 Labs: Laboratory Results - last 24 hr 11/27/24 06:20: WBC 5.7, RBC 3.78 L, Hgb 9.3 L, Hct 30.3 L, MCV 80.2 L, MCH 24.6 L, MCHC 30.7 L, RDW Std Deviation 45.0 H, RDW Coeff of Arturo 15.5 H, Plt Count 234, MPV 9.7, Sodium 135, Potassium 3.4, Chloride 102, Carbon Dioxide 25.3, Anion Gap 8, BUN 15, Creatinine 0.45 L, Estim Creat Clear Calc 60.79, Est GFR (MDRD) Non-Af 95, BUN/Creatinine Ratio 34.3 H, Glucose 126 H, Calcium 8.3, Iron 21 L, TIBC 357, Iron Saturation 6.0 L, Unsaturated IBC 336, Ferritin 19 L
--- NOTE | 2024-11-27 12:51 | PCM.CONS.GEN ---
Assessment & Plan Assessment/Plan (1) Compression fracture of L1 lumbar vertebra: (2) Wedge compression fracture of T12 vertebra: PLAN: Plan Plan for thoracic and lumbar MRI without contrast to evaluate for acuity of compression fracture. Prior imaging from 2022 demonstrates T12 and L1 compression fractures at that time. However on comparison it appears that the L1 fracture may have progressed recently. This may suggest that there is some acuity to this worsening fracture at the L1 level that may be contributing to some of her severe pain symptomology. -MRI imaging may also yield information regarding possible spinal stenosis. -Consider L1 kyphoplasty -Continue scheduled Tylenol 1000 g every 8hrs -Continue celebrex -Continue as needed oxycodone -Continue as needed Dilaudid 0.5 mg for breakthrough -Continue as needed tizanidine -Continue lidocaine patch -Lovenox 40mg will need to be held 12 hours pior to spinal intervention. HPI Consult Data Date of Consult: 11/27/24 HPI Narrative Reason for Consultation: L1 compression fracture concern HPI Narrative: The patient presents with worsening thoracolumbar back pain without radicular symptoms. She has a known history of compression fractures at the T12 and L1 levels, she says from 8 years ago that for years was manageable with conservative care but have become significantly more painful and functionally limiting in the last two weeks. The pain worsened when she was trying to reach for a box in the closet. Dr. Lua started her on some medications which helped a little bit but fortunately a few days ago after an ophthalmology procedure the pain worsened even more. She describes the pain as very severe and it is axial in nature, worsened by standing, walking, and transitional movements. She rates it as up to over 10/10 in severity. She states in the last few days she is barely able to ambulate stand as difficulty getting in and out of cars which is why she end hospital. The medications in the hospital are helping to take the edge off. She has been having difficulty doing even PT in the hospital. she obtain new x-rays CT scan showing the above fractures Along with some spondylolisthesis. Due to the severity of his symptoms and functional decline, she is concerned about the possibility of a new fracture or progression of his condition and is seeking further evaluation and options for interventional treatment. She denies loss of bowel or bladder control or saddle anesthesia [facility] Medical History Hemorrhoids Cancer Arthritis Hypertension GERD (gastroesophageal reflux disease) Constipation BPPV (benign paroxysmal positional vertigo) Compression fracture of L1 lumbar vertebra Home Medications ?Medication ?Instructions ?Recorded ?Last Taken ?Type calcium carbonate (Calcium 600) 600 mg PO DAILY 04/24/22 11/24/24 History calcium carbonate (Tums) 200 mg PO BID PRN dyspepsia 04/24/22 11/23/24 History fluticasone propionate 50 2 spray intranasal DAILY 04/24/22 Unknown History mcg/actuation nasal spray,suspension metoprolol succinate 25 mg 25 mg PO DAILY 04/24/22 11/24/24 History tablet,extended release 24 hr multivitamin 1 tab PO DAILY 04/24/22 11/24/24 History acetaminophen 650 mg 650 mg PO Q8H PRN pain 11/25/24 11/25/24 History tablet,extended release (Arthritis Pain Relief (acetaminophen) ER) baclofen 10 mg tablet 10 mg PO QHS MUSCLE SPASM 11/25/24 11/24/24 History cholecalciferol (vitamin D3) 25 25 mcg PO DAILY 11/25/24 11/24/24 History mcg (1,000 unit) capsule (Vitamin D3) cranberry 500 mg capsule 500 mg PO DAILY 11/25/24 Unknown History dorzolamide 22.3 mg-timolol 6.8 1 drp ophthalmic (eye) BID 11/25/24 Unknown History mg/mL eye drops guaifenesin 600 mg tablet, 600 mg PO BID PRN congestion 11/25/24 Unknown History extended release 12 hr (Mucinex) hydrochlorothiazide 25 mg tablet 25 mg PO DAILY 11/25/24 11/24/24 History ketorolac 0.5 % eye drops 1 drp ophthalmic (eye) TID 11/25/24 11/25/24 History magnesium oxide 400 mg (241.3 mg 400 mg PO DAILY 11/25/24 11/24/24 History magnesium) tablet meclizine 12.5 mg tablet 12.5 mg PO TID PRN dizziness 11/25/24 Unknown History melatonin 5 mg tablet 5 mg PO QHS PRN sleep 11/25/24 Unknown History naproxen 250 mg tablet 250 mg PO BID 11/25/24 11/24/24 History pantoprazole 40 mg tablet,delayed 40 mg PO DAILY 11/25/24 11/24/24 History release prednisone 10 mg tablet See Taper PO .COMPLEX 11/25/24 11/24/24 History Allergy/AdvReac Type Severity Reaction Status Date / Time norfloxacin (From Noroxin) Allergy unknown Verified 11/25/24 09:26 polymyxin B Allergy Swelling Verified 11/25/24 09:26 levofloxacin (From Levaquin) AdvReac Diarrhea Verified 11/25/24 09:26 phenylephrine (From Sudafed AdvReac Other Verified 11/25/24 09:26 PE) Surgical History History of gastric bypass History of hysterectomy Hx of shoulder replacement History of knee replacement Social History Smoking Status: Former smoker ROS Constitutional Constitutional: Denies anorexia, change in weight, chills, fatigue, fever(s), malaise, night sweats, weakness or other Eyes Eyes: Denies blurry vision, change in eye color, change in vision, discharge from eye(s), double vision, erythema, eye pain, loss of vision or other ENT HEENT: Denies abnormal hearing, dysphagia, ear pain, epistaxis, headache(s), hearing loss, nasal congestion, nasal discharge, post nasal drip, sinus pressure, sore throat or other Cardiovascular Cardiovascular: Denies chest pain, claudication, dyspnea on exertion, edema, lightheadedness, orthopnea, palpitations, paroxysmal nocturnal dyspnea, rapid heart rate, syncope or other Respiratory/Chest Respiratory/Chest: Denies cough, dyspnea, excessive phlegm production, hemoptysis, productive cough, shortness of breath at rest, shortness of breath with exertion, wheezing or other Gastrointestinal Gastrointestinal: Denies abdominal pain, coffee ground emesis, constipation, diarrhea, dyspepsia, hematemesis, hematochezia, loose stools, melena, nausea, vomiting or other Genitourinary Genitourinary: Denies burning urination, difficulty urinating, dysuria, hematuria, nocturia, urinary frequency, urinary hesitancy, urinary incontinence, urinary urgency or other Musculoskeletal Musculoskeletal: Reports back pain; Denies arthralgias, joint pain, joint stiffness, joint swelling, myalgias, neck pain or other Neurologic Neurologic: Reports abnormal gait; Denies abnormal speech, confusion, disequilibrium, dizziness, focal weakness, headache(s), numbness, paresthesias, seizure-like activity, seizures, syncope, tingling, tremor(s) or other Psychiatric Psychiatric: Denies anxiety, depression, homicidal ideation, suicidal ideation or other Endocrine Endocrinology: Denies change in body appearance, cold intolerance, excessive sweating, heat intolerance, polydipsia, polyuria or other Hematologic/Lymphatic Hematologic/Lymphatic: Denies anemia, easy bleeding, easy bruising, lymphadenopathy or other Allergic/Immunologic Allergic/Immunologic: Denies rhinitis, hives, eczemia, asthma or other Physical Exam Narrative Lumbar paraspinal tenderness + bilaterally Pain with percussion over the lower thoracic and lumbar area Facet load - bilaterally SLR - bilaterally for radicular pain. Back pain worsened with bilateral hip flexion 5/5 strength, except for 4/5 with hip flexion in the setting of pain limitation. Normal sensation in the lower extremities. DTR physiologic bilateral lower extremities Const alert and oriented x3 Lab / Micro Data 11/27/24 06:20 11/27/24 06:20 Labs: Laboratory Results - last 24 hr 11/27/24 06:20: WBC 5.7, RBC 3.78 L, Hgb 9.3 L, Hct 30.3 L, MCV 80.2 L, MCH 24.6 L, MCHC 30.7 L, RDW Std Deviation 45.0 H, RDW Coeff of Arturo 15.5 H, Plt Count 234, MPV 9.7, Sodium 135, Potassium 3.4, Chloride 102, Carbon Dioxide 25.3, Anion Gap 8, BUN 15, Creatinine 0.45 L, Estim Creat Clear Calc 60.79, Est GFR (MDRD) Non-Af 95, BUN/Creatinine Ratio 34.3 H, Glucose 126 H, Calcium 8.3, Iron 21 L, TIBC 357, Iron Saturation 6.0 L, Unsaturated IBC 336, Ferritin 19 L
--- NOTE | 2024-11-27 12:59 | CASEMGMT ---
Met with patient to complete COPELAND form. COPELAND form explained to patient who voiced understanding and signed form. Original form placed in pt?s chart and copy provided to patient. Carlotta Galvan, Discharge Planning Asst
--- NOTE | 2024-11-27 13:08 | MRI_ITS ---
PROCEDURE: SPINE LUMBAR (ROUTINE) 11/27/2024 REASON FOR EXAM: BACK PAIN TECHNIQUE: Multiplanar multisequential imaging was performed without IV contrast administration. COMPARISON: CT 11/25/2024 FINDINGS: Vertebrae: Moderate loss of height of the T12 vertebral body with wedging deformity without marrow edema consistent with a chronic compression fracture. Mild loss of height and wedging deformity of the L1 vertebral body with faint T2 hyperintensity along the inferior endplate consistent with an acute/subacute compression fracture. No retropulsion into the spinal canal. Alignment: Mild levoscoliosis centered at L2. Conus Medullaris: L1. L1-2: Mild bilateral facet hypertrophy with fluid in facet joints consistent with instability and moderate ligamentum flavum hypertrophy. 2 mm of retrolisthesis of L1 on L2 with a mild bilobed disc protrusion produces moderate spinal stenosis and mild bilateral neural foraminal stenosis. L2-3: Mild bilateral facet hypertrophy with fluid in the facet joints consistent with instability and severe ligamentum flavum hypertrophy. 5 mm retrolisthesis of L2 on L3 with a mild bilobed disc protrusion produces severe spinal stenosis and moderate bilateral neural foraminal stenosis. L3-4: Mild bilateral facet hypertrophy and moderate ligamentum flavum hypertrophy. Mild bilobed disc protrusion produces mild spinal stenosis and mild bilateral neural foraminal stenosis. L4-5: Moderate bilateral facet hypertrophy and severe ligamentum flavum hypertrophy. 2 mm of anterolisthesis of L4 on L5 with a moderate broad disc protrusion produces severe spinal stenosis and moderate bilateral neural foraminal stenosis. L5-S1: Mild broad disc protrusion produces mild spinal stenosis and moderate bilateral neural foraminal stenosis with abutment of the exiting L5 nerve roots bilaterally. Sacrum: Unremarkable. MRI/Spine Lumbar (Routine) IMPRESSION: Acute/subacute mild compression fracture of the inferior aspect of the L1 verte bral body without retropulsion into the spinal canal. Chronic moderate wedge compression fracture of T12 without retropulsion in the spinal canal. Mild levoscoliosis with degenerative disc disease as described above. Reading Location: [id number]
--- NOTE | 2024-11-27 13:27 | MRI_ITS ---
PROCEDURE: SPINE THORACIC (ROUTINE) 11/27/2024 REASON FOR EXAM: BACK PAIN TECHNIQUE: Noncontrast thoracic spine MRI. Coronal and Sagittal reconstruction series were provided. FINDINGS: Vertebrae: Moderate loss of height and wedging deformity of the T12 vertebral body without marrow edema consistent with a chronic compression fracture. No retropulsion in the spinal canal. No other compression fracture of the thoracic spine. Alignment: Anatomic alignment. Mild dextroscoliosis. Spinal Cord: Thoracic spinal cord is of normal size and signal intensities. Disc spaces: Mild multilevel thoracic degenerative changes without central canal stenosis. Paraspinal Tissues: Unremarkable. MRI/Spine Thoracic (Routine) IMPRESSION: Chronic moderate wedge compression fracture of T12 without retropulsion into th e spinal canal. Mild dextroscoliosis with mild degenerative disc disease but no severe spinal s tenosis or cord compression. Reading Location: [id number]
[2024-11-27] MEDS: Docusate Sodium 100 MG Capsule PO (14:00)
--- NOTE | 2024-11-27 14:54 | CHAPLAIN ---
Type of Pastoral Visit _x__ Initial Visit ___ Follow-up Visit ___ On-call Visit ___ General Patient Visit ___ Spiritual Assessment ___ Family Conference ___ Bereavement ___ Rapid Response ___ Code Blue ___ Other (describe below) Pastoral Care Referral From _x__ Patient ___ Family ___ Nurse ___ Physician ___ Plodding Machine Operator ___ Photography Assistant ___ Other (describe below) Sacrament/Intervention _x__ Active listening ___ Anointing ___ Amish ___ Bereavement ___ Communion _x__ Liz exploration ___ _x__ Life review _x__ Prayer ___ Reconciliation ___ Sacrament of Sick ___ Supportive presence ___ Wedding ___ Other (describe below) Pastoral Comments patient is very talkative and gives life review and her liz testimony of God's work in her life through the good and the bad; pt has pain and is hoping for relief; pt welcomes presence and prayer
[2024-11-27] MEDS: Ondansetron 4 MG/2 ML Vial IV (16:35)
[2024-11-27] MEDS: Sodium Ferric Gluconat/Sucrose 250 MG in 0.9% Normal Saline (250mL Bag) 250 ML 135 MG IV (17:17)
[2024-11-27 18:30] VITALS: BP 97/46; PULSE 78; RESP 16; TEMP 36.3; O2SAT 96
[2024-11-27] MEDS: 0.9% Saline Lock 10 ML Syringe IV (19:56)
[2024-11-27 20:18] VITALS: BP 111/66; PULSE 101; RESP 17; TEMP 36.4; O2SAT 93
[2024-11-28] VITALS (7 sets, daily range): BP systolic 115–137; BP diastolic 50–69; PULSE 58–68; RESP 16–17; TEMP 36.3–36.7; O2SAT 92–97
--- NOTE | 2024-11-28 09:10 | NURSING ---
talked with Gilda tiwari and Julianna OR charge, aware they have not heard about plans for kyphoplasty today. Call placed to Dr. Ramirez's office, informed office MRI's were complete and results in computer. Requested update from Dr. Ramirez on POC.
[2024-11-28] MEDS: oxyCODONE 5 MG Tablet PO ×3 (09:18→19:37)
--- NOTE | 2024-11-28 09:20 | PCM.CONS.GEN ---
Assessment & Plan Assessment/Plan (1) Age-related osteoporosis with current pathological fracture, unspecified site, initial encounter for fracture: (2) Disease of bone and joint: (3) Collapse of lumbar vertebra: QUALIFIERS: Encounter type: initial encounter Qualified Code(s): M48.56XA - Collapsed vertebra, not elsewhere classified, lumbar region, initial encounter for fracture PLAN: Plan MRI imaging demonstrates acute/subacute L1 compression fracture. I believe this is likely responsible for the pain and debility she is experiencing. Given the severity of her symptoms, plan for L1 kyphoplasty. risks and benefits for the kyphoplasty were discussed at great length. Risks were discussed including but not limited to infection, bleeding, nerve damage such as paralysis, embolism or even . Plan was to proceed with the procedure -Continue scheduled Tylenol 1000 g every 8hrs -Continue celebrex -Continue as needed oxycodone -Continue as needed Dilaudid 0.5 mg for breakthrough -Continue as needed tizanidine -Continue lidocaine patch -Lovenox 40mg will need to be held 12 hours pior to spinal intervention. HPI Consult Data Date of Consult: 11/28/24 HPI Narrative Reason for Consultation: Back Pain HPI Narrative: TORSTEN COLINDRES, is a 84 F remains unchanged compared to yesterday. She still has severe back pain that is axial in nature. It is worsened with attempts to move, stand, or ambulate. She is struggling to participate meaningfully in rehabilitation efforts. The pain does not radiate. She obtained MRI yesterday showing evidence of chronic T12 fracture, but actue inferior aspect of L1 compression fracture. Denies saddle numbness, loss of bowel or bladder control. The pain can be 10/10 in severity. Medication has helped take the edge off. [facility] Medical History Hemorrhoids Cancer Arthritis Hypertension GERD (gastroesophageal reflux disease) Constipation BPPV (benign paroxysmal positional vertigo) Compression fracture of L1 lumbar vertebra Home Medications ?Medication ?Instructions ?Recorded ?Last Taken ?Type calcium carbonate (Calcium 600) 600 mg PO DAILY 04/24/22 11/24/24 History calcium carbonate (Tums) 200 mg PO BID PRN dyspepsia 04/24/22 11/23/24 History fluticasone propionate 50 2 spray intranasal DAILY 04/24/22 Unknown History mcg/actuation nasal spray,suspension metoprolol succinate 25 mg 25 mg PO DAILY 04/24/22 11/24/24 History tablet,extended release 24 hr multivitamin 1 tab PO DAILY 04/24/22 11/24/24 History acetaminophen 650 mg 650 mg PO Q8H PRN pain 11/25/24 11/25/24 History tablet,extended release (Arthritis Pain Relief (acetaminophen) ER) baclofen 10 mg tablet 10 mg PO QHS MUSCLE SPASM 11/25/24 11/24/24 History cholecalciferol (vitamin D3) 25 25 mcg PO DAILY 11/25/24 11/24/24 History mcg (1,000 unit) capsule (Vitamin D3) cranberry 500 mg capsule 500 mg PO DAILY 11/25/24 Unknown History dorzolamide 22.3 mg-timolol 6.8 1 drp ophthalmic (eye) BID 11/25/24 Unknown History mg/mL eye drops guaifenesin 600 mg tablet, 600 mg PO BID PRN congestion 11/25/24 Unknown History extended release 12 hr (Mucinex) hydrochlorothiazide 25 mg tablet 25 mg PO DAILY 11/25/24 11/24/24 History ketorolac 0.5 % eye drops 1 drp ophthalmic (eye) TID 11/25/24 11/25/24 History magnesium oxide 400 mg (241.3 mg 400 mg PO DAILY 11/25/24 11/24/24 History magnesium) tablet meclizine 12.5 mg tablet 12.5 mg PO TID PRN dizziness 11/25/24 Unknown History melatonin 5 mg tablet 5 mg PO QHS PRN sleep 11/25/24 Unknown History naproxen 250 mg tablet 250 mg PO BID 11/25/24 11/24/24 History pantoprazole 40 mg tablet,delayed 40 mg PO DAILY 11/25/24 11/24/24 History release prednisone 10 mg tablet See Taper PO .COMPLEX 11/25/24 11/24/24 History Allergy/AdvReac Type Severity Reaction Status Date / Time norfloxacin (From Noroxin) Allergy unknown Verified 11/25/24 09:26 polymyxin B Allergy Swelling Verified 11/25/24 09:26 levofloxacin (From Levaquin) AdvReac Diarrhea Verified 11/25/24 09:26 phenylephrine (From Sudafed AdvReac Other Verified 11/25/24 09:26 PE) Surgical History History of gastric bypass History of hysterectomy Hx of shoulder replacement History of knee replacement Social History Smoking Status: Former smoker Physical Exam Narrative Lumbar paraspinal tenderness + bilaterally Pain with percussion over the lower thoracic and lumbar area Facet load - bilaterally SLR - bilaterally for radicular pain. Back pain worsened with bilateral hip flexion 5/5 strength, except for 4/5 with hip flexion in the setting of pain limitation. Normal sensation in the lower extremities. DTR physiologic bilateral lower extremities Const alert and oriented x3 Lab / Micro Data 11/27/24 06:20 11/27/24 06:20 Labs: Laboratory Results - last 24 hr 11/27/24 06:20: Iron 21 L, TIBC 357, Iron Saturation 6.0 L, Unsaturated IBC 336, Ferritin 19 L Imaging Radiology Impression Venous Doppler Study 11/25/24 19:21 Interpretation Summary Deep veins of the bilateral lower extremities are patent and compressible segmentally. There is no evidence of bilateral lower extremity deep vein thrombosis. The bilateral great saphenous veins appear patent and compressible segmentally. Ordering Physician: Tonya Cortez Referring Physician: Leandro Lua Chi Performed By: Kishor Conley, BHARATIT Lumbar Spine MRI 11/27/24 13:08 IMPRESSION: Acute/subacute mild compression fracture of the inferior aspect of the L1 vertebral body without retropulsion into the spinal canal. Chronic moderate wedge compression fracture of T12 without retropulsion in the spinal canal. Mild levoscoliosis with degenerative disc disease as described above. Reading Location: [id number] Thoracic Spine MRI 11/27/24 13:27 IMPRESSION: Chronic moderate wedge compression fracture of T12 without retropulsion into the spinal canal. Mild dextroscoliosis with mild degenerative disc disease but no severe spinal stenosis or cord compression. Reading Location: [id number]
--- NOTE | 2024-11-28 09:27 | PN.HOSP_ITS ---
Subjective Subjective No issues overnight, pain is controlled. MRI shows an acute L1 compression fracture plan for kyphoplasty hopefully tomorrow Objective Data Objective Data Vital Signs: Vital Signs Temp Pulse Resp BP Pulse Ox O2 Del Method 97.4 F L 68 16 137/61 H 97 Room Air 11/28/24 09:14 11/28/24 09:14 11/28/24 09:14 11/28/24 09:14 11/28/24 09:14 11/28/24 09:14 Oxygen Delivery Method Room Air Weight: 216 lb 14.958 oz Body Mass Index (BMI) 36.1 Intake & Output: Intake and Output for Last 24 Hours 11/27/24 11/28/24 11/29/24 03:59 03:59 03:59 Intake Total 150 / 150 920 / 920 Output Total 425 / 425 375 / 375 650 / 650 Balance -275 / -275 545 / 545 -650 / -650 Lab / Micro Data 11/27/24 06:20 11/27/24 06:20 Labs: Laboratory Results - last 24 hr 11/27/24 06:20: Iron 21 L, TIBC 357, Iron Saturation 6.0 L, Unsaturated IBC 336, Ferritin 19 L Radiography Diagnostic Testing: Radiology Impression Venous Doppler Study 11/25/24 19:21 Interpretation Summary Deep veins of the bilateral lower extremities are patent and compressible segmentally. There is no evidence of bilateral lower extremity deep vein thrombosis. The bilateral great saphenous veins appear patent and compressible segmentally. Ordering Physician: Tonya Cortez Referring Physician: Leandro Lua Chi Performed By: Kishor Conley RVT Lumbar Spine MRI 11/27/24 13:08 IMPRESSION: Acute/subacute mild compression fracture of the inferior aspect of the L1 vertebral body without retropulsion into the spinal canal. Chronic moderate wedge compression fracture of T12 without retropulsion in the spinal canal. Mild levoscoliosis with degenerative disc disease as described above. Reading Location: [facility] Thoracic Spine MRI 11/27/24 13:27 IMPRESSION: Chronic moderate wedge compression fracture of T12 without retropulsion into the spinal canal. Mild dextroscoliosis with mild degenerative disc disease but no severe spinal stenosis or cord compression. Reading Location: [facility] Physical Exam Narrative General: Alert, Oriented x3, Cooperative, No apparent distress HEENT: Atraumatic, PERRLA, EOMI, Normocephalic Oral: Moist Mucosa Neck: Supple, No JVD Lungs: Diminished, Normal air movement, No rhonchi, No wheeze, No rales Cardiovascular: Regular rate, Regular Rhythm, Normal S1, Normal S2, No murmurs Abdomen: Soft, Non Tender, Non-Distended, No Hepato-splenomegaly Extremities: Edema, Capillary Refill Less than 3 Seconds Skin: No rashes, No breakdown Musculoskeletal: Point tenderness to her lumbar spine Neurological: No focal neurological deficits, Motor Exam 5/5 strength throughout, Sensory exam intact to light touch and pain Psych/Mental Status: Normal Affect, Appropriate Assessment & Plan Assessment/Plan (1) Intractable low back pain: PLAN: Plan 1. 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 She is to be on a bisphosphonate ? PT/OT ?Plan for kyphoplasty in the morning, appreciate pain management assistance ? Continue with multimodal pain control ? Continue with her vitamin D replacement as well as her calcium 2. Essential HTN/bilateral edema ? Lower extremity Dopplers negative ? Continue with blood pressure medications ? Will monitor and make adjustments as necessary 3. Iron deficiency anemia ?She was given a dose of Venofer yesterday, will repeat today ? Plan to discharge on iron supplements 4. GERD ? Stable ? Continue with PPI DVT: Lovenox Charges/Coding Visit Charges Inpatient E&M: 28202 Subs Hosp L2
[2024-11-28] MEDS: Calcium (Elemental) 500 MG Tablet PO (09:38)
[2024-11-28] MEDS: Gabapentin 100 MG Capsule PO ×3 (09:38→17:34)
[2024-11-28] MEDS: Multivitamins,Therapeutic Tablet 1 TABLET PO (09:38)
[2024-11-28] MEDS: Fluticasone 0.05% 1 SPRAY NASAL.SRY NASAL (09:39)
[2024-11-28] MEDS: Magnesium Chloride 64 MG Delay Rel.Tablet 128 MG PO (09:39)
[2024-11-28] MEDS: Lidocaine 5% Patch 1 PATCH TOPICAL (09:39)
[2024-11-28] MEDS: hydroCHLOROthiazide 12.5mg 12.5 MG PO (09:39)
[2024-11-28] MEDS: Dorzolamide HCL/Timolol 10 ml Bottle 1 DRP EACH EYE ×2 (09:39→21:05)
[2024-11-28] MEDS: Cholecalciferol (VIT D3) 25 MCG TABLET (1,000 UNITS) PO (09:40)
[2024-11-28] MEDS: Pantoprazole Sodium 40 MG Tablet PO (09:40)
[2024-11-28] MEDS: Metoprolol(XL)Succ 25 MG Tablet PO (09:40)
[2024-11-28] MEDS: Senna/Docusate Sodium 1 Tablet 2 TABLET PO ×2 (09:40→21:05)
[2024-11-28] MEDS: 0.9% Saline Lock 10 ML Syringe IV (11:10)
[2024-11-28] MEDS: Sodium Ferric Gluconat/Sucrose 250 MG in 0.9% Normal Saline (250mL Bag) 250 ML 135 MG IV (11:10)
[2024-11-28] MEDS: 0.9% Normal Saline (100mL Bag) 100 ML 15 ML IV (11:10)
[2024-11-28] MEDS: Enoxaparin 40 MG/0.4 ML Syringe SC (11:58)
[2024-11-28] MEDS: Celecoxib 100 MG Capsule PO (11:58)
--- NOTE | 2024-11-28 13:25 | CASEMGMT ---
LOUISA GOYAL into pt room, pt sitting up in chair in no distress. Pt states she lives alone with 3 steps to enter the home. She states she is indep in ADLs typically and IADLs. She states her son and family are very helpful. Pt son stops after work 5 days/wk and gets mail and paper and does anything that needs done. Pt uses a FWW at home as well as furniture walks. Pt also has raised toilets and has a grab bar in the shower. Pt plans to return home after her kyphoplasty. She states she would be agreeable to [facility] for therapy. Her dil is also a PT. LOUISA GOYAL to follow post surgery. Pt states she will not do therapy again after the pain she had with it yesterday.
[2024-11-28] MEDS: Acetaminophen 500 MG Tablet 1000 MG PO ×2 (14:49→21:06)
--- NOTE | 2024-11-28 16:04 | CASEMGMT ---
Discharge Planning A list of?HH providers including quality and resource use data and consistent with the patient's preferred geographic region, medical needs, and insurance network was created in [employer].? This list was provided to the RN JYOTSNA. Carlotta Galvan, Discharge Planning Asst.
[2024-11-28 20:23] LABS: Mucous, Urine 0 SEEN /hpf (<or=2+)
[2024-11-28 20:25] LABS: Color, Urine Yellow (Yellow); Glucose, Dipstick Normal (Normal); Ketone-Dipstick 5 mg/dl (Negative); Leukocyte Esterase-Dipstick 500 /ul (Negative); Nitrite-Dipstick Negative (Negative); Occult Blood-Urine 10 /ul (Negative); Protein-Dipstick 15 mg/dl (Negative); Specific Gravity, Urine 1.015 (1.002-1.030); Urine Bilirubin Dipstick Negative (Negative); Urine Clarity Clear (Clear); Urine Urobilinogen 1 mg/dl (Normal)
[2024-11-28 20:43] LABS: Squamous Epithelial Cells - UA 0-5 SEEN /hpf (5-10)
[2024-11-28 20:44] LABS: Bacteria 1+ /hpf (None Seen); White Blood Cells 25-50 SEEN /hpf (0-5)
[2024-11-28 20:45] LABS: Red Blood Cells-Urine 0-5 SEEN /hpf (0-5)
[2024-11-29] VITALS (16 sets, daily range): BP systolic 112–149; BP diastolic 52–86; PULSE 63–130; RESP 16–18; TEMP 36.4–37.7; O2SAT 92–99; BMI 34.7
[2024-11-29] MEDS: oxyCODONE 5 MG Tablet PO (00:08)
[2024-11-29 03:42] LABS: Absolute Lymphocyte Count 0.98 X10^3/uL (0.83-4.51); Absolute Neutrophil Count 4.1 X10^3/uL (2.0-7.7); Basophil# 0.03 X10^3/uL; Basophil% 0.5 % (0-1); Eosinophil# 0.24 X10^3/uL; Hematocrit 30.5 % (37-47); Hemoglobin 9.4 g/dL (12.0-15.0); Lymphocyte # 0.98 X10^3/ul (0.83-4.51); Lymphocyte % 16.3 % (19-41); Mean Corp Hgb Conc 30.8 g/dL (32-36); Mean Corpuscular Hgb 24.4 pg (27.0-32.0); Mean Corpuscular Volume 79.2 fL (81-99); Mean Platelet Vol. 9.7 fl (6.2-12.0); Monocyte# 0.67 X10^3/uL; Monocyte% 11.1 % (0-10); NRBC Flagged by Analyzer 0 % (0-5); Neutrophil # 4.06 X10^3/uL (2.7-7.7); Neutrophil % 67.3 % (47-70); Platelet Count 231 K/mm3 (150-450); RBC Distribution Width CV 15.9 % (11.6-14.6); Red Blood Count 3.85 M/mm3 (4.2-5.4)
[2024-11-29 04:10] LABS: Anion Gap 8 (5-15); BUN 12 mg/dL (4-19); BUN/Creat Ratio 26.8 RATIO (10-20); Calcium,Total 8.2 mg/dL (7.6-11.0); Chloride 102 mmol/L (98-108); Creatinine, Serum 0.44 mg/dL (0.70-1.20); EST Glomerular Filtration Rate 95 (>60); Estimated Creatinine Clearance 60.79 ml/min (50-250); Glucose 112 mg/dL (70-99); Potassium 3.6 mmol/L (3.3-5.1); Sodium Level 136 mmol/L (133-145)
[2024-11-29] MEDS: Metoprolol(XL)Succ 25 MG Tablet PO (08:04)
[2024-11-29] MEDS: Dorzolamide HCL/Timolol 10 ml Bottle 1 DRP EACH EYE ×2 (08:04→21:01)
[2024-11-29] MEDS: Fluticasone 0.05% 1 SPRAY NASAL.SRY NASAL (08:08)
--- NOTE | 2024-11-29 10:14 | PCM.PN.HOSP ---
Subjective Subjective Continue to have back pain but otherwise stable Objective Data Objective Data Vital Signs: Vital Signs Temp Pulse Resp BP Pulse Ox O2 Del Method 98.5 F 72 16 147/52 H 95 Room Air 11/29/24 08:24 11/29/24 08:24 11/29/24 08:26 11/29/24 08:24 11/29/24 08:26 11/29/24 09:32 Oxygen Delivery Method Room Air Weight: 216 lb 14.958 oz Body Mass Index (BMI) 36.1 Intake & Output: Intake and Output for Last 24 Hours 11/28/24 11/29/24 11/30/24 03:59 03:59 03:59 Intake Total 920 / 920 357 / 357 Output Total 375 / 375 750 / 750 Balance 545 / 545 -393 / -393 Lab / Micro Data 11/29/24 03:17 11/29/24 03:17 Labs: Laboratory Results - last 24 hr 11/28/24 20:15: Urine Color Yellow, Urine Clarity Clear, Urine pH 6.0, Ur Specific [place] 1.015, Urine Protein 15 H, Urine Glucose (UA) Normal, Urine Ketones 5 H, Urine Occult Blood 10 H, Urine Nitrite Negative, Urine Bilirubin Negative, Urine Urobilinogen 1 H, Ur Leukocyte Esterase 500 H, Urine RBC 0-5 SEEN, Urine WBC 25-50 SEEN, Ur Squamous Epith Cells 0-5 SEEN, Urine Bacteria 1+, Urine Mucus 0 SEEN 11/29/24 03:17: WBC 6.0, RBC 3.85 L, Hgb 9.4 L, Hct 30.5 L, MCV 79.2 L, MCH 24.4 L, MCHC 30.8 L, RDW Std Deviation 45.0 H, RDW Coeff of Arturo 15.9 H, Plt Count 231, MPV 9.7, Immature Gran % (Auto) 0.800, Neut % (Auto) 67.3, Lymph % (Auto) 16.3 L, [place] % (Auto) 11.1 H, Eos % (Auto) 4.0, Baso % (Auto) 0.5, Absolute Neuts (auto) 4.1, Absolute Lymphs (auto) 0.98, Nucleated RBC % 0, Sodium 136, Potassium 3.6, Chloride 102, Carbon Dioxide 26.0, Anion Gap 8, BUN 12, Creatinine 0.44 L, Estim Creat Clear Calc 60.79, Est GFR (MDRD) Non-Af 95, BUN/Creatinine Ratio 26.8 H, Glucose 112 H, Calcium 8.2 Physical Exam Narrative General: Alert, Oriented x3, Cooperative, No apparent distress HEENT: Atraumatic, PERRLA, EOMI, Normocephalic Oral: Moist Mucosa Neck: Supple, No JVD Lungs: Diminished, Normal air movement, No rhonchi, No wheeze, No rales Cardiovascular: Regular rate, Regular Rhythm, Normal S1, Normal S2, No murmurs Abdomen: Soft, Non Tender, Non-Distended, No Hepato-splenomegaly Extremities: Edema, Capillary Refill Less than 3 Seconds Skin: No rashes, No breakdown Musculoskeletal: Point tenderness to her lumbar spine Neurological: No focal neurological deficits, Motor Exam 5/5 strength throughout, Sensory exam intact to light touch and pain Psych/Mental Status: Normal Affect, Appropriate Assessment & Plan Assessment/Plan (1) Intractable low back pain: PLAN: Plan 1. 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 She is to be on a bisphosphonate ? PT/OT ?Plan for kyphoplasty today by pain management ? Continue with multimodal pain control ? Continue with her vitamin D replacement as well as her calcium 2. Essential HTN/bilateral edema ? Lower extremity Dopplers negative ? Continue with blood pressure medications ? Will monitor and make adjustments as necessary 3. Iron deficiency anemia ?She was given a dose of Venofer yesterday, will transition to oral iron supplementation today ? Plan to discharge on iron supplements 4. GERD ? Stable ? Continue with PPI DVT: Mala Charges/Coding Visit Charges Inpatient E&M: 91806 Subs Hosp L2
[2024-11-29] MEDS: 0.9% Saline Lock 10 ML Syringe IV ×2 (11:28→19:01)
[2024-11-29] MEDS: HYDROmorphone 0.5 MG/0.5 ML SYRINGE IV ×2 (11:28→16:54)
--- NOTE | 2024-11-29 12:32 | NURSING ---
Addendum entered by Bryan Lane 11/29/24 15:35: Pt. returned to unit, via bed at 1525 Original Note: Pt. left unit via bed, to go down for kyphoplasty.
--- NOTE | 2024-11-29 12:51 | PCM.PRE.AN2 ---
ASA Classification* ASA Classification ASA Classification: 2 Assessment & Plan Anesthesia* Anesthesia Assessment Anesthesia Assessment: Discussed sedation and/or anesthesia options, risks, benefits, and alternatives with patient/parents/legal guardian/POA. Questions invited. The patient/parents/legal guardian/POA seems to understand and agrees to proceed with anesthesia plan. Reviewed the physical assessment, medical history, allergy history and patient home medications list prior to surgery/procedure/anesthetic and documented any changes. Performed airway and anesthesia risk assessments. Anesthesia Type Anesthesia Type: MAC (GA bkup) Anesthesia Focused Assessment* Temperature: 97.5 F Pulse Rate: 71 Blood Pressure: 149/52 Respiratory Rate: 17 Pulse Ox: 95 Airway Assessment Mouth opens: >3 cm Mallampati Score: II Focused Labs Anesthesia Preop lab: CBC WBC 6.0 K/mm3 (4.4-11.0) 11/29/24 03:17 11/29/24 RBC 3.85 M/mm3 (4.2-5.4) L 11/29/24 03:17 11/29/24 Hgb 9.4 g/dL (12.0-15.0) L 11/29/24 03:17 11/29/24 Hct 30.5 % (37-47) L 11/29/24 03:17 11/29/24 Plt Count 231 K/mm3 (150-450) 11/29/24 03:17 11/29/24 CHEMISTRY Potassium 3.6 mmol/L (3.3-5.1) 11/29/24 03:17 11/29/24 Sodium 136 mmol/L (133-145) 11/29/24 03:17 11/29/24 Magnesium 2.0 mg/dL (1.5-2.2) 11/26/24 03:59 11/26/24 Phosphorus 3.5 mg/dL (2.7-4.5) 11/26/24 03:59 11/26/24 BUN 12 mg/dL (4-19) 11/29/24 03:17 11/29/24 Creatinine 0.44 mg/dL (0.70-1.20) L 11/29/24 03:17 11/29/24 Glucose 112 mg/dL (70-99) H 11/29/24 03:17 11/29/24 TSH 2.950 uIU/mL (0.300-4.200) 11/26/24 03:59 11/26/24 COAG Pre-Assessment Diagnosis/Proposed Procedure Planned Operative Procedure(s): Kyphoplasty Anesthesia History 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 When Was Last Pacemaker Check QUESTION #4 FULL TEXT: You/Your Family Experience fever (hyperthermia) with Anesthesia Last Oral Intake Last Oral intake: Last Oral Intake NPO since 00:00 11/29/24 08:30 Meds taken in AM with sips of Yes 11/29/24 08:30 water? Meds patient instructed to Metoprolol 11/29/24 08:30 take am of surgery PONV PONV - consumer studies professor: PONV - consumer studies professor Female HX of Motion Sickness HX of N/V After Surgery Non-Smoker Duration of Surgery greater than 60 minutes Number of Risk Factors PONV Score Height & Weight Height & Weight: Anesthesia: Height & Weight Height 5 ft 5 in 11/29/24 08:30 Weight: 94.846 kg 11/29/24 08:30 Body Mass Index (BMI) 34.7 11/29/24 08:30 Respiratory Assessment Respiratory Assessment - consumer studies professor: Respiratory Tract Infection Hx - consumer studies professor Hx Respiratory Tract Infection No 11/28/24 07:24 STOP Sleep Apnea STOP Sleep Apnea - consumer studies professor: STOP Sleep Apnea - consumer studies professor Hx Hypertension No 11/26/24 12:04 Hx Sleep Apnea No 11/25/24 14:20 CPAP BIPAP Do you snore loudly (louder No 11/25/24 14:20 than talking or can be heard Do you often feel tired/ Yes 11/25/24 14:20 fatigued/ sleepy during daytime? Has anyone observed you stop No 11/25/24 14:20 breathing during sleep? STOP Results Negative 11/25/24 14:20 QUESTION #5 FULL TEXT : Do you snore loudly (louder than talking or can be heard through closed doors)? 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 Specify any problems Hx of Preganancy in last 3 N/A 11/25/24 14:20 Months Nurse Filling Out Transfusion [id number] 11/25/24 14:20 & Questions: Date: 11/25/24 11/25/24 14:20 Time: 14:47 11/25/24 14:20 Patient unable to answer at this time (ie. confused, unrespo /Reproduction History /Reproductive History - consumer studies professor: /Reproductive Hx- consumer studies professor Hx Now No 11/28/24 07:24 Gestational Age (in weeks): EDC: Hx Hx Para Hx Section SAB No 11/28/24 07:24 Active Medications Active Medications: Current Medications Generic Name Dose Route Start Last Admin Trade Name Freq PRN Reason Stop Dose Admin Acetaminophen 1,000 mg 11/25/24 16:00 11/29/24 05:45 Acetaminophen 500 Mg Tablet PO Not Given Q8 TAMMIE Albuterol Sulfate 2.5 mg 11/25/24 15:01 Albuterol 2.5 Mg/3 Ml Vial.Neb. INHALATION Q2H PRN PRN SOB &/OR WHEEZING Calcium Carbonate 500 mg 11/26/24 08:00 11/29/24 11:47 Calcium (Elemental) 500 Mg Tablet PO Not Given DAILYCM TAMMIE Celecoxib 100 mg 11/26/24 11:00 11/29/24 11:47 Celecoxib 100 Mg Capsule PO Not Given DAILY [facility] Cholecalciferol 25 mcg 11/26/24 10:00 11/29/24 11:48 Cholecalciferol (Vit D3) 25 Mcg Tablet (1,000 Units) PO Not Given DAILY [facility] Docusate Sodium 100 mg 11/25/24 15:01 11/27/24 14:00 Docusate Sodium 100 Mg Capsule PO 100 mg BID PRN PRN Administration Constipation Dorzolamide/Timolol 1 drp 11/25/24 22:00 11/29/24 08:04 Dorzolamide Hcl/Timolol 10 Ml Bottle EACH EYE 1 drp BID [facility] Administration Enoxaparin Sodium 40 mg 11/26/24 10:00 11/28/24 11:58 Enoxaparin 40 Mg/0.4 Ml Syringe SC 40 mg DAILY [facility] Administration Ferrous Gluconate 324 mg 11/29/24 12:00 11/29/24 11:49 Ferrous Gluconate 324 Mg Tablet PO Not Given TIDCM [facility] Fluticasone Propionate 1 spray 11/26/24 10:00 11/29/24 08:08 Fluticasone 0.05% 1 [place] Nasal.Sry NASAL 1 spray DAILY [facility] Administration Gabapentin 100 mg 11/25/24 15:01 11/29/24 11:50 Gabapentin 100 Mg Capsule PO Not Given TIDCM [facility] Guaifenesin 1,200 mg 11/25/24 22:00 11/29/24 11:48 Guaifenesin 1,200 Mg Tablet PO Not Given BID [facility] Hydrochlorothiazide 12.5 mg 11/26/24 10:00 11/29/24 11:47 Hydrochlorothiazide 12.5mg PO Not Given DAILY [facility] Protocol Hydromorphone HCl 0.5 mg 11/25/24 15:01 11/29/24 11:28 Hydromorphone 0.5 Mg/0.5 Ml Syringe IV 0.5 mg Q3H PRN PRN Administration Pain Score 6-10 or Pre PT/OT Sodium Chloride 100 mls @ 15 mls/hr 11/25/24 14:59 11/28/24 16:58 IV 0 mls/hr .Q6H40M PRN Infusion Saline Flush Sodium Chloride 100 mls @ 15 mls/hr 11/25/24 14:59 IV .Q6H40M PRN Additional IVPB Infusion Lidocaine 1 patch 11/26/24 10:00 11/29/24 11:48 Lidocaine 5% Patch TOPICAL Not Given DAILY [facility] Protocol Magnesium Chloride 128 mg 11/26/24 10:00 11/29/24 11:48 Magnesium Chloride 64 Mg Delay Rel.Tablet PO Not Given DAILY [facility] Melatonin 5 mg 11/25/24 17:51 Melatonin 10 Mg Tablet PO QHS PRN sleep Metoprolol Succinate 25 mg 11/26/24 10:00 11/29/24 08:04 Metoprolol(Xl)Succ 25 Mg Tablet PO 25 mg DAILY [facility] Administration Protocol Multivitamins 1 tablet 11/26/24 08:00 11/29/24 11:47 Multivitamins,Therapeutic Tablet PO Not Given DAILYCM [facility] Ondansetron HCl 4 mg 11/25/24 15:01 11/27/24 16:35 Ondansetron 4 Mg/2 Ml Vial IV 4 mg Q8H PRN PRN Administration NAUSEA/VOMITING Oxycodone HCl 5 mg 11/25/24 15:01 11/29/24 00:08 Oxycodone 5 Mg Tablet PO 5 mg Q4H PRN PRN Administration Pain Score 4-10 Pantoprazole Sodium 40 mg 11/26/24 10:00 11/29/24 11:48 Pantoprazole Sodium 40 Mg Tablet PO Not Given DAILY [facility] Senna/Docusate Sodium 2 tablet 11/25/24 22:00 11/29/24 11:48 Senna/Docusate Sodium 1 Tablet PO Not Given BID [facility] Sodium Chloride 10 - 40 ml 11/25/24 14:59 11/29/24 11:28 0.9% Saline Lock 10 Ml Syringe IV 10 ml UD PRN Administration SALINE FLUSH Tizanidine HCl 4 mg 11/25/24 15:01 11/27/24 14:00 Tizanidine Hcl 2 Mg Tablet PO 4 mg Q8H PRN PRN Administration Muscle Spasms/Musculoskeletal Pain PFSH Medical History Hemorrhoids Cancer Arthritis Hypertension GERD (gastroesophageal reflux disease) Constipation BPPV (benign paroxysmal positional vertigo) Compression fracture of L1 lumbar vertebra Home Medications ?Medication ?Instructions ?Recorded ?Last Taken ?Type calcium carbonate (Calcium 600) 600 mg PO DAILY 04/24/22 11/24/24 History calcium carbonate (Tums) 200 mg PO BID PRN dyspepsia 04/24/22 11/23/24 History fluticasone propionate 50 2 spray intranasal DAILY 04/24/22 Unknown History mcg/actuation nasal spray,suspension metoprolol succinate 25 mg 25 mg PO DAILY 04/24/22 11/24/24 History tablet,extended release 24 hr multivitamin 1 tab PO DAILY 04/24/22 11/24/24 History acetaminophen 650 mg 650 mg PO Q8H PRN pain 11/25/24 11/25/24 History tablet,extended release (Arthritis Pain Relief (acetaminophen) ER) baclofen 10 mg tablet 10 mg PO QHS MUSCLE SPASM 11/25/24 11/24/24 History cholecalciferol (vitamin D3) 25 25 mcg PO DAILY 11/25/24 11/24/24 History mcg (1,000 unit) capsule (Vitamin D3) cranberry 500 mg capsule 500 mg PO DAILY 11/25/24 Unknown History dorzolamide 22.3 mg-timolol 6.8 1 drp ophthalmic (eye) BID 11/25/24 Unknown History mg/mL eye drops guaifenesin 600 mg tablet, 600 mg PO BID PRN congestion 11/25/24 Unknown History extended release 12 hr (Mucinex) hydrochlorothiazide 25 mg tablet 25 mg PO DAILY 11/25/24 11/24/24 History ketorolac 0.5 % eye drops 1 drp ophthalmic (eye) TID 11/25/24 11/25/24 History magnesium oxide 400 mg (241.3 mg 400 mg PO DAILY 11/25/24 11/24/24 History magnesium) tablet meclizine 12.5 mg tablet 12.5 mg PO TID PRN dizziness 11/25/24 Unknown History melatonin 5 mg tablet 5 mg PO QHS PRN sleep 11/25/24 Unknown History naproxen 250 mg tablet 250 mg PO BID 11/25/24 11/24/24 History pantoprazole 40 mg tablet,delayed 40 mg PO DAILY 11/25/24 11/24/24 History release prednisone 10 mg tablet See Taper PO .COMPLEX 11/25/24 11/24/24 History Allergy/AdvReac Type Severity Reaction Status Date / Time norfloxacin (From Noroxin) Allergy unknown Verified 11/25/24 09:26 polymyxin B Allergy Swelling Verified 11/25/24 09:26 levofloxacin (From Levaquin) AdvReac Diarrhea Verified 11/25/24 09:26 phenylephrine (From Sudafed AdvReac Other Verified 11/25/24 09:26 PE) Surgical History History of gastric bypass History of hysterectomy Hx of shoulder replacement History of knee replacement Social History Smoking Status: Former smoker Review of Systems (Anesthesia) ROS Narrative System reviewed and no additional complaints, except as documented.
[2024-11-29] MEDS: Cefazolin 2 GM in Syringe IV (13:52)
--- NOTE | 2024-11-29 14:28 | EKG12_ITS ---
Test Reason : ARRYTHMIA Blood Pressure : */* mmHG Vent. Rate : 116 BPM Atrial Rate : * BPM P-R Int : * ms QRS Dur : 86 ms QT Int : 358 ms P-R-T Axes : * 11 -15 degrees QTcB Int : 497 ms normal sinus rhythm with sinus tachycardia Otherwise normal ECG Confirmed by Dale Martinez ([id number]), scientific publications editor JHONY HOLLIDAY ([id number]) on 12/04/2024 8:50:00 AM Referred By: ERIKA Confirmed By: aDle Martinez
--- NOTE | 2024-11-29 14:38 | PCM.POST.ANE ---
Anesthesia: Postop Eval I Current Vital Signs Temperature: 99.9 F Pulse Rate: 93 Blood Pressure: 123/64 Respiratory Rate: 16 Pulse Ox: 95 Oxygen Delivery Method: Room Air Assessment Airway patent: Yes Spontaneous unlabored respirations: Yes Mental status: Awake nausea: No Vomiting: No Anesthesia Complication: No Fluid Hydration Crystalloid volume administer (ml): 300 Total IV fluid infused: 300 Progress Note Anesthesia document: Postop Eval 1 completed: Yes
--- NOTE | 2024-11-29 16:03 | NURSING ---
All documentation by nursing program manager Elzbieta Mosqueda reviewed by nursing program chair Farida MUNOZN, RN.
--- NOTE | 2024-11-29 16:11 | POSTOPAN2_ITS ---
Anesthesia Postop Eval I Sum Postop Eval Completion status Anesthesia document: Postop Eval 1 completed: Yes Anesthesia Postop Eval I Summary Anesthesia Postop Eval I Summary: Anesthesia Postop Eval I: Assessment Summary Airway patent Yes 11/29/24 14:39 [employer] CONSULTANT.JDEF Spontaneous unlabored Yes 11/29/24 14:39 [employer] CONSULTANT.JDEF respirations Mental status Awake 11/29/24 14:39 [employer] CONSULTANT.JDEF nausea No 11/29/24 14:39 [employer] CONSULTANT.JDEF Vomiting No 11/29/24 14:39 [employer] CONSULTANT.JDEF Anesthesia Postop Eval I: Fluid Summary Crystalloid volume administer 300 11/29/24 14:39 [employer] CONSULTANT.JDEF (ml) Colloids volume administered ( ml) Blood Product volume administered (ml) Total IV fluid infused 300 11/29/24 14:39 [employer] CONSULTANT.JDEF Anesthesia Postop Eval I: Summary Notes Anesthesia Complication No 11/29/24 14:39 [employer] CONSULTANT.JDEF Anesthesia Complication Comment: Post-operative progress note Anesthesia: Postop Eval II Evaluation Mental status: Awake Pain Level: 0 nausea: No Vomiting: No Progress Note Post-operative progress note: Surgery canceled. Patient doing well in PACU. Had short runs of SVT in operating room prior to procedure. Postop EKG showed possible atrial fibrillation with rapid ventricular response. Hospitalist is aware and is going to manage the care on [facility] 3
--- NOTE | 2024-11-29 16:11 | PCM.POSTANE2 ---
Anesthesia Postop Eval I Sum Postop Eval Completion status Anesthesia document: Postop Eval 1 completed: Yes Anesthesia Postop Eval I Summary Anesthesia Postop Eval I Summary: Anesthesia Postop Eval I: Assessment Summary Airway patent Yes 11/29/24 14:39 DAY CARE SUPERVISOR.JDEF Spontaneous unlabored Yes 11/29/24 14:39 DAY CARE SUPERVISOR.JDEF respirations Mental status Awake 11/29/24 14:39 DAY CARE SUPERVISOR.JDEF nausea No 11/29/24 14:39 DAY CARE SUPERVISOR.JDEF Vomiting No 11/29/24 14:39 DAY CARE SUPERVISOR.JDEF Anesthesia Postop Eval I: Fluid Summary Crystalloid volume administer 300 11/29/24 14:39 DAY CARE SUPERVISOR.JDEF (ml) Colloids volume administered ( ml) Blood Product volume administered (ml) Total IV fluid infused 300 11/29/24 14:39 DAY CARE SUPERVISOR.JDEF Anesthesia Postop Eval I: Summary Notes Anesthesia Complication No 11/29/24 14:39 DAY CARE SUPERVISOR.JDEF Anesthesia Complication Comment: Post-operative progress note Anesthesia: Postop Eval II Evaluation Mental status: Awake Pain Level: 0 nausea: No Vomiting: No Progress Note Post-operative progress note: Surgery canceled. Patient doing well in PACU. Had short runs of SVT in operating room prior to procedure. Postop EKG showed possible atrial fibrillation with rapid ventricular response. Hospitalist is aware and is going to manage the care on [facility] 3
[2024-11-29] MEDS: Gabapentin 100 MG Capsule PO (16:39)
[2024-11-29] MEDS: Acetaminophen 500 MG Tablet 1000 MG PO ×2 (16:39→21:02)
[2024-11-29] MEDS: Ferrous Gluconate 324 MG Tablet PO (16:39)
[2024-11-29] MEDS: Polyethylene Glycol 3350 17 GM PACKET PO (18:34)
[2024-11-29 18:53] LABS: Magnesium 1.6 mg/dL (1.5-2.2)
[2024-11-29] MEDS: Ondansetron 4 MG/2 ML Vial IV (19:01)
[2024-11-29] MEDS: Magnesium Sulfate 2 GM in Dextrose 5%-Water (100mL Bag) 100 ML IV (20:54)
[2024-11-29] MEDS: Senna/Docusate Sodium 1 Tablet 2 TABLET PO (21:01)
[2024-11-30] VITALS (10 sets, daily range): BP systolic 110–163; BP diastolic 39–69; PULSE 61–90; RESP 16–18; TEMP 36.2–36.7; O2SAT 94–99
[2024-11-30] MEDS: oxyCODONE 5 MG Tablet PO ×4 (00:37→23:22)
[2024-11-30] MEDS: Acetaminophen 500 MG Tablet 1000 MG PO ×3 (06:03→22:07)
--- NOTE | 2024-11-30 08:45 | PCM.PN.HOSP ---
Subjective Subjective Her kyphoplasty was canceled yesterday because in the process of doing her anesthesia and rolling around to her side she went into SVT. She has been going into SVT periodically since that time for no more than 1520 seconds at a time and then she reverts to normal sinus rhythm. Will increase her metoprolol to 50 mg daily today Objective Data Objective Data Vital Signs: Vital Signs Temp Pulse Resp BP Pulse Ox O2 Del Method 97.7 F L 90 16 126/43 H 99 Room Air 11/30/24 08:00 11/30/24 08:23 11/30/24 08:23 11/30/24 08:00 11/30/24 08:23 11/30/24 08:23 Oxygen Delivery Method Room Air Weight: 209 lb 1.6 oz Body Mass Index (BMI) 34.7 Intake & Output: Intake and Output for Last 24 Hours 11/29/24 11/30/24 12/01/24 03:59 03:59 03:59 Intake Total 357 / 357 404 / 404 300 / 300 Output Total 750 / 750 600 / 600 400 / 400 Balance -393 / -393 -196 / -196 -100 / -100 Lab / Micro Data 11/29/24 03:17 11/29/24 03:17 Labs: Laboratory Results - last 24 hr 11/29/24 18:25: Magnesium 1.6 Physical Exam Narrative General: Alert, Oriented x3, Cooperative, No apparent distress HEENT: Atraumatic, PERRLA, EOMI, Normocephalic Oral: Moist Mucosa Neck: Supple, No JVD Lungs: Diminished, Normal air movement, No rhonchi, No wheeze, No rales Cardiovascular: Regular rate, Regular Rhythm, Normal S1, Normal S2, No murmurs Abdomen: Soft, Non Tender, Non-Distended, No Hepato-splenomegaly Extremities: Edema, Capillary Refill Less than 3 Seconds Skin: No rashes, No breakdown Musculoskeletal: Continued back pain in her lumbar region Neurological: No focal neurological deficits, Motor Exam 5/5 strength throughout, Sensory exam intact to light touch and pain Psych/Mental Status: Normal Affect, Appropriate Assessment & Plan Assessment/Plan (1) Intractable low back pain: PLAN: Plan 1. 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 She is to be on a bisphosphonate ? PT/OT ?Will see what pain management is able to do, and whether or not anesthesia is willing to try again for the kyphoplasty today or tomorrow ? Continue with multimodal pain control ? Continue with her vitamin D replacement as well as her calcium 2. Essential HTN/bilateral edema ? Lower extremity Dopplers negative ? Continue with blood pressure medications ? Will monitor and make adjustments as necessary 3. Iron deficiency anemia ?She was given a dose of Venofer yesterday, will transition to oral iron supplementation today ? Plan to discharge on iron supplements 4. GERD ? Stable ? Continue with PPI DVT: Mala Charges/Coding Visit Charges Inpatient E&M: 27625 Subs Hosp L2
[2024-11-30] MEDS: Lidocaine 5% Patch 1 PATCH TOPICAL (08:49)
[2024-11-30] MEDS: Polyethylene Glycol 3350 17 GM PACKET PO (08:50)
[2024-11-30] MEDS: Fluticasone 0.05% 1 SPRAY NASAL.SRY NASAL (08:50)
[2024-11-30] MEDS: Dorzolamide HCL/Timolol 10 ml Bottle 1 DRP EACH EYE ×2 (08:50→22:06)
[2024-11-30] MEDS: hydroCHLOROthiazide 12.5mg 12.5 MG PO (08:51)
[2024-11-30] MEDS: Calcium (Elemental) 500 MG Tablet PO (08:51)
[2024-11-30] MEDS: Ferrous Gluconate 324 MG Tablet PO ×3 (08:51→16:59)
[2024-11-30] MEDS: Gabapentin 100 MG Capsule PO ×3 (08:51→16:59)
[2024-11-30] MEDS: Multivitamins,Therapeutic Tablet 1 TABLET PO (08:52)
[2024-11-30] MEDS: Cholecalciferol (VIT D3) 25 MCG TABLET (1,000 UNITS) PO (08:52)
[2024-11-30] MEDS: Pantoprazole Sodium 40 MG Tablet PO (08:53)
[2024-11-30] MEDS: Celecoxib 100 MG Capsule PO (08:53)
[2024-11-30] MEDS: Magnesium Chloride 64 MG Delay Rel.Tablet 128 MG PO (08:53)
[2024-11-30] MEDS: Senna/Docusate Sodium 1 Tablet 2 TABLET PO ×2 (08:53→22:07)
[2024-11-30] MEDS: Metoprolol(XL)Succ 50 MG Tablet PO (08:57)
[2024-11-30] MEDS: Metoprolol Tartrate 25 MG Tablet PO (22:27)
[2024-12-01] VITALS (7 sets, daily range): BP systolic 98–137; BP diastolic 50–77; PULSE 64–95; RESP 18; TEMP 36.3–36.5; O2SAT 95–98
[2024-12-01] MEDS: Acetaminophen 500 MG Tablet 1000 MG PO ×3 (05:08→21:15)
[2024-12-01] MEDS: Metoprolol Tartrate 25 MG Tablet PO ×3 (05:09→21:15)
[2024-12-01 06:14] LABS: Absolute Lymphocyte Count 0.97 X10^3/uL (0.83-4.51); Absolute Neutrophil Count 5.3 X10^3/uL (2.0-7.7); Basophil# 0.04 X10^3/uL; Basophil% 0.6 % (0-1); Eosinophil# 0.17 X10^3/uL; Eosinophils% 2.4 % (0-5); Hematocrit 33.1 % (37-47); Hemoglobin 10.1 g/dL (12.0-15.0); Lymphocyte # 0.97 X10^3/ul (0.83-4.51); Lymphocyte % 13.6 % (19-41); Mean Corp Hgb Conc 30.5 g/dL (32-36); Mean Corpuscular Hgb 24.8 pg (27.0-32.0); Mean Corpuscular Volume 81.1 fL (81-99); Mean Platelet Vol. 10.3 fl (6.2-12.0); Monocyte# 0.58 X10^3/uL; Monocyte% 8.2 % (0-10); NRBC Flagged by Analyzer 0 % (0-5); Neutrophil # 5.27 X10^3/uL (2.7-7.7); Neutrophil % 74.1 % (47-70); Platelet Count 220 K/mm3 (150-450); RBC Distribution Width SD 46.3 fl (35.1-43.9); Red Blood Count 4.08 M/mm3 (4.2-5.4); White Blood Count 7.1 K/mm3 (4.4-11.0)
[2024-12-01 07:14] LABS: Anion Gap 9 (5-15); BUN 13 mg/dL (4-19); BUN/Creat Ratio 31.5 RATIO (10-20); Calcium,Total 8.5 mg/dL (7.6-11.0); Carbon Dioxide 22.7 mmol/L (21.0-32.0); Chloride 103 mmol/L (98-108); Creatinine, Serum 0.41 mg/dL (0.70-1.20); EST Glomerular Filtration Rate 97 (>60); Estimated Creatinine Clearance 59.61 ml/min (50-250); Glucose 91 mg/dL (70-99); Sodium Level 136 mmol/L (133-145)
[2024-12-01] MEDS: Lidocaine 5% Patch 1 PATCH TOPICAL (08:11)
[2024-12-01] MEDS: Enoxaparin 40 MG/0.4 ML Syringe SC (08:12)
[2024-12-01] MEDS: Fluticasone 0.05% 1 SPRAY NASAL.SRY NASAL (08:19)
[2024-12-01] MEDS: Ferrous Gluconate 324 MG Tablet PO ×3 (08:19→17:35)
[2024-12-01] MEDS: Multivitamins,Therapeutic Tablet 1 TABLET PO (08:19)
[2024-12-01] MEDS: Senna/Docusate Sodium 1 Tablet 2 TABLET PO (08:20)
[2024-12-01] MEDS: Magnesium Chloride 64 MG Delay Rel.Tablet 128 MG PO (08:20)
[2024-12-01] MEDS: Pantoprazole Sodium 40 MG Tablet PO (08:21)
[2024-12-01] MEDS: Celecoxib 100 MG Capsule PO (08:21)
[2024-12-01] MEDS: hydroCHLOROthiazide 12.5mg 12.5 MG PO (08:21)
[2024-12-01] MEDS: Calcium (Elemental) 500 MG Tablet PO (08:21)
[2024-12-01] MEDS: Polyethylene Glycol 3350 17 GM PACKET PO (08:22)
[2024-12-01] MEDS: Cholecalciferol (VIT D3) 25 MCG TABLET (1,000 UNITS) PO (08:22)
[2024-12-01] MEDS: Dorzolamide HCL/Timolol 10 ml Bottle 1 DRP EACH EYE ×2 (08:23→21:16)
[2024-12-01] MEDS: Gabapentin 100 MG Capsule PO ×3 (08:30→17:35)
--- NOTE | 2024-12-01 10:22 | PN.HOSP_ITS ---
Subjective Subjective Doing well, no issues overnight. Heart rates well-controlled. Not a cardiac issue and I think that regardless of what her heart rate does she should be capable of having kyphoplasty on Wednesday Objective Data Objective Data Vital Signs: Vital Signs Temp Pulse Resp BP Pulse Ox O2 Del Method 97.5 F L 67 18 137/50 H 97 Room Air 12/01/24 09:26 12/01/24 09:26 12/01/24 09:26 12/01/24 09:26 12/01/24 09:26 12/01/24 09:26 Oxygen Delivery Method Room Air Weight: 209 lb 1.6 oz Body Mass Index (BMI) 34.7 Intake & Output: Intake and Output for Last 24 Hours 11/30/24 12/01/24 12/02/24 03:59 03:59 03:59 Intake Total 404 / 404 1450 / 1450 Output Total 600 / 600 1250 / 1250 800 / 800 Balance -196 / -196 200 / 200 -800 / -800 Lab / Micro Data 12/01/24 05:00 12/01/24 05:00 Labs: Laboratory Results - last 24 hr 12/01/24 05:00: WBC 7.1, RBC 4.08 L, Hgb 10.1 L, Hct 33.1 L, MCV 81.1, MCH 24.8 L, MCHC 30.5 L, RDW Std Deviation 46.3 H, RDW Coeff of Arturo 16.0 H, Plt Count 220, MPV 10.3, Immature Gran % (Auto) 1.100 H, Neut % (Auto) 74.1 H, Lymph % (Auto) 13.6 L, Bell % (Auto) 8.2, Eos % (Auto) 2.4, Baso % (Auto) 0.6, Absolute Neuts (auto) 5.3, Absolute Lymphs (auto) 0.97, Nucleated RBC % 0, Sodium 136, Potassium 4.0, Chloride 103, Carbon Dioxide 22.7, Anion Gap 9, BUN 13, C reatinine 0.41 L, Estim Creat Clear Calc 59.61, Est GFR (MDRD) Non-Af 97, B UN/Creatinine Ratio 31.5 H, Glucose 91, Calcium 8.5 Physical Exam Narrative General: Alert, Oriented x3, Cooperative, No apparent distress HEENT: Atraumatic, PERRLA, EOMI, Normocephalic Oral: Moist Mucosa Neck: Supple, No JVD Lungs: Diminished, Normal air movement, No rhonchi, No wheeze, No rales Cardiovascular: Regular rate, Regular Rhythm, Normal S1, Normal S2, No murmurs Abdomen: Soft, Non Tender, Non-Distended, No Hepato-splenomegaly Extremities: Edema, Capillary Refill Less than 3 Seconds Skin: No rashes, No breakdown Musculoskeletal: Continued back pain in her lumbar region Neurological: No focal neurological deficits, Motor Exam 5/5 strength throughout, Sensory exam intact to light touch and pain Psych/Mental Status: Normal Affect, Appropriate Assessment & Plan Assessment/Plan (1) Intractable low back pain: PLAN: Plan 1. 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 She is to be on a bisphosphonate ? PT/OT ?Will see what pain management is able to do, and whether or not anesthesia is willing to try again for the kyphoplasty on Wednesday, her heart rate is not malignant and she is still low risk for intervention ? Continue with multimodal pain control ? Continue with her vitamin D replacement as well as her calcium 2. Essential HTN/bilateral edema ? Lower extremity Dopplers negative ? Continue with blood pressure medications, I did change her from succinate to 25 mg of metoprolol tartrate 3 times daily ? Will monitor and make adjustments as necessary 3. Iron deficiency anemia ?She was given a dose of Venofer yesterday, will transition to oral iron supplementation today ? Plan to discharge on iron supplements 4. GERD ? Stable ? Continue with PPI DVT: Mala Charges/Coding Visit Charges Inpatient E&M: 79297 Subs Hosp L2
[2024-12-01] MEDS: oxyCODONE 5 MG Tablet PO (23:03)
[2024-12-02] VITALS (10 sets, daily range): BP systolic 105–138; BP diastolic 64–73; PULSE 65–118; RESP 16–18; TEMP 36.5–37.2; O2SAT 94–98
[2024-12-02] MEDS: Metoprolol Tartrate 25 MG Tablet PO ×3 (05:44→20:59)
[2024-12-02] MEDS: Acetaminophen 500 MG Tablet 1000 MG PO ×3 (05:45→21:01)
[2024-12-02] MEDS: Ondansetron 4 MG/2 ML Vial IV (08:53)
[2024-12-02] MEDS: Gabapentin 100 MG Capsule PO ×3 (08:53→16:54)
[2024-12-02] MEDS: Dorzolamide HCL/Timolol 10 ml Bottle 1 DRP EACH EYE ×2 (08:54→21:03)
--- NOTE | 2024-12-02 08:58 | PCM.PN.HOSP ---
Subjective Subjective No new issues overnight, awaiting kyphoplasty on Wednesday Objective Data Objective Data Vital Signs: Vital Signs Temp Pulse Resp BP Pulse Ox O2 Del Method 97.9 F 80 18 129/73 H 97 Room Air 12/02/24 08:37 12/02/24 08:41 12/02/24 08:37 12/02/24 08:37 12/02/24 08:37 12/02/24 08:37 Oxygen Delivery Method Room Air Weight: 209 lb 1.6 oz Body Mass Index (BMI) 34.7 Intake & Output: Intake and Output for Last 24 Hours 12/01/24 12/02/24 12/03/24 03:59 03:59 03:59 Intake Total 1450 / 1450 550 / 550 300 / 300 Output Total 1250 / 1250 1600 / 1600 300 / 300 Balance 200 / 200 -1050 / -1050 0 / 0 Lab / Micro Data 12/01/24 05:00 12/01/24 05:00 Physical Exam Narrative General: Alert, Oriented x3, Cooperative, No apparent distress HEENT: Atraumatic, PERRLA, EOMI, Normocephalic Oral: Moist Mucosa Neck: Supple, No JVD Lungs: Diminished, Normal air movement, No rhonchi, No wheeze, No rales Cardiovascular: Regular rate, Regular Rhythm, Normal S1, Normal S2, No murmurs Abdomen: Soft, Non Tender, Non-Distended, No Hepato-splenomegaly Extremities: Edema, Capillary Refill Less than 3 Seconds Skin: No rashes, No breakdown Musculoskeletal: Continued back pain in her lumbar region Neurological: No focal neurological deficits, Motor Exam 5/5 strength throughout, Sensory exam intact to light touch and pain Psych/Mental Status: Normal Affect, Appropriate Assessment & Plan Assessment/Plan (1) Intractable low back pain: PLAN: Plan 1. 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 She is to be on a bisphosphonate ? PT/OT ? Plan for kyphoplasty on Wednesday, continue with her current metoprolol dosage of 25 mg p.o. 3 times daily ? Continue with multimodal pain control ? Continue with her vitamin D replacement as well as her calcium 2. Essential HTN/bilateral edema ? Lower extremity Dopplers negative ? Continue with blood pressure medications, I did change her from succinate to 25 mg of metoprolol tartrate 3 times daily ? Will monitor and make adjustments as necessary 3. Iron deficiency anemia ?She was given a dose of Venofer yesterday, will transition to oral iron supplementation today ? Plan to discharge on iron supplements 4. GERD ? Stable ? Continue with PPI DVT: Francesnox Charges/Coding Visit Charges Inpatient E&M: 13978 Subs Hosp L1
[2024-12-02] MEDS: Lidocaine 5% Patch 1 PATCH TOPICAL (10:08)
[2024-12-02] MEDS: Pantoprazole Sodium 40 MG Tablet PO (10:09)
[2024-12-02] MEDS: Senna/Docusate Sodium 1 Tablet 2 TABLET PO (10:09)
[2024-12-02] MEDS: Magnesium Chloride 64 MG Delay Rel.Tablet 128 MG PO (10:10)
[2024-12-02] MEDS: Enoxaparin 40 MG/0.4 ML Syringe SC (10:10)
[2024-12-02] MEDS: Fluticasone 0.05% 1 SPRAY NASAL.SRY NASAL (10:11)
[2024-12-02] MEDS: hydroCHLOROthiazide 12.5mg 12.5 MG PO (10:11)
[2024-12-02] MEDS: Celecoxib 100 MG Capsule PO (10:12)
[2024-12-02] MEDS: Ferrous Gluconate 324 MG Tablet PO ×2 (12:20→16:54)
[2024-12-02] MEDS: oxyCODONE 5 MG Tablet PO (17:06)
[2024-12-03] VITALS (12 sets, daily range): BP systolic 102–127; BP diastolic 61–69; PULSE 59–90; RESP 15–18; TEMP 36.3–36.9; O2SAT 95–100
[2024-12-03] MEDS: oxyCODONE 5 MG Tablet PO ×4 (02:04→23:25)
[2024-12-03] MEDS: Metoprolol Tartrate 25 MG Tablet PO ×3 (06:40→22:02)
[2024-12-03] MEDS: Acetaminophen 500 MG Tablet 1000 MG PO ×3 (06:40→22:02)
[2024-12-03] MEDS: Gabapentin 100 MG Capsule PO ×3 (08:15→16:37)
[2024-12-03] MEDS: Pantoprazole Sodium 40 MG Tablet PO (08:16)
[2024-12-03] MEDS: hydroCHLOROthiazide 12.5mg 12.5 MG PO (08:16)
[2024-12-03] MEDS: Ferrous Gluconate 324 MG Tablet PO ×3 (08:16→16:38)
[2024-12-03] MEDS: Enoxaparin 40 MG/0.4 ML Syringe SC (08:17)
[2024-12-03] MEDS: Senna/Docusate Sodium 1 Tablet 2 TABLET PO ×2 (08:19→22:02)
[2024-12-03] MEDS: Menthol/Lanolin/Calamine/Znox 113 GM Tube 1 APPLIC TOPICAL ×2 (08:23→21:54)
[2024-12-03] MEDS: Celecoxib 100 MG Capsule PO (08:23)
[2024-12-03] MEDS: Dorzolamide HCL/Timolol 10 ml Bottle 1 DRP EACH EYE ×2 (08:23→21:56)
[2024-12-03] MEDS: Fluticasone 0.05% 1 SPRAY NASAL.SRY NASAL (08:24)
[2024-12-03] MEDS: Lidocaine 5% Patch 1 PATCH TOPICAL (08:24)
--- NOTE | 2024-12-03 08:48 | PCM.PN.HOSP ---
Subjective Subjective Continues to have decreased mobility in bed, states her pain is a 15 out of 10 and tries to move as little as possible Objective Data Objective Data Vital Signs: Vital Signs Temp Pulse Resp BP Pulse Ox O2 Del Method 97.7 F L 61 15 127/69 H 100 Room Air 12/03/24 08:00 12/03/24 08:00 12/03/24 08:00 12/03/24 08:00 12/03/24 08:00 12/03/24 08:00 Oxygen Delivery Method Room Air Weight: 209 lb 1.6 oz Body Mass Index (BMI) 34.7 Intake & Output: Intake and Output for Last 24 Hours 12/02/24 12/03/24 12/04/24 03:59 03:59 03:59 Intake Total 550 / 550 300 / 300 Output Total 1600 / 1600 800 / 800 500 / 500 Balance -1050 / -1050 -500 / -500 -500 / -500 Lab / Micro Data 12/01/24 05:00 12/01/24 05:00 Physical Exam Narrative General: Alert, Oriented x3, Cooperative, No apparent distress HEENT: Atraumatic, PERRLA, EOMI, Normocephalic Oral: Moist Mucosa Neck: Supple, No JVD Lungs: Diminished, Normal air movement, No rhonchi, No wheeze, No rales Cardiovascular: Regular rate, Regular Rhythm, Normal S1, Normal S2, No murmurs Abdomen: Soft, Non Tender, Non-Distended, No Hepato-splenomegaly Extremities: Edema, Capillary Refill Less than 3 Seconds Skin: No rashes, No breakdown Musculoskeletal: Continued back pain in her lumbar region Neurological: No focal neurological deficits, Motor Exam 5/5 strength throughout, Sensory exam intact to light touch and pain Psych/Mental Status: Normal Affect, Appropriate Assessment & Plan Assessment/Plan (1) Intractable low back pain: PLAN: Plan 1. 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 She is to be on a bisphosphonate ? PT/OT ? Plan for kyphoplasty on Wednesday, continue with her current metoprolol dosage of 25 mg p.o. 3 times daily, there is no reason not to proceed with kyphoplasty on Wednesday her tachycardia issues are benign ? Continue with multimodal pain control ? Continue with her vitamin D replacement as well as her calcium 2. Essential HTN/bilateral edema ? Lower extremity Dopplers negative ? Continue with blood pressure medications, I did change her from succinate to 25 mg of metoprolol tartrate 3 times daily ? Will monitor and make adjustments as necessary 3. Iron deficiency anemia ?She was given a dose of Venofer yesterday, will transition to oral iron supplementation today ? Plan to discharge on iron supplements 4. GERD ? Stable ? Continue with PPI DVT: Mala Charges/Coding Visit Charges Inpatient E&M: 41520 Subs Hosp L2
--- NOTE | 2024-12-03 18:49 | NURSING ---
This RN in room with pt. She states I think I have a UTI. Pt states she has had one before. This RN emptied BSC and urine was purlent and had a strong, foul odor to it. Also cloudy. Dr. Davis is aware and okay to order UA.
[2024-12-03 21:53] LABS: Mucous, Urine 0 SEEN /hpf (<or=2+); Red Blood Cells-Urine 0 SEEN /hpf (0-5); Squamous Epithelial Cells - UA 0 SEEN /hpf (5-10)
[2024-12-03] MEDS: 0.9% Saline Lock 10 ML Syringe IV ×2 (21:54→23:40)
[2024-12-03 22:43] LABS: Color, Urine Yellow (Yellow); Glucose, Dipstick Normal (Normal); Ketone-Dipstick Negative (Negative); Leukocyte Esterase-Dipstick 500 /ul (Negative); Nitrite-Dipstick Negative (Negative); Occult Blood-Urine 250 /ul (Negative); Protein-Dipstick 100 mg/dl (Negative); Urine Bilirubin Dipstick Negative (Negative); Urine Clarity Cloudy (Clear); Urine Urobilinogen Normal (Normal)
[2024-12-03 23:02] LABS: Bacteria 4+ /hpf (None Seen); White Blood Cells >100 SEEN /hpf (0-5)
--- NOTE | 2024-12-03 23:26 | PCM.HOSP.N ---
Hospitalist Note UA ordered earlier today resulted this evening. Showed 500 leukocyte esterase, negative nitrites, 4+ bacteria, greater than 100 WBCs. Notably does look considerably worse compared to UA from 11/28. On chart review, urine culture from 2021 grew E. coli with significant resistance but that was sensitive to Zosyn. Will treat with IV Zosyn for now. Follow-up urine culture.
[2024-12-03] MEDS: Piperacil/Tazobactam 3.375 GM in 0.9% Normal Saline (50mL MB+) 50 ML IV (23:39)
[2024-12-04] VITALS (9 sets, daily range): BP systolic 116–133; BP diastolic 42–54; PULSE 60–80; RESP 16–18; TEMP 36.4–36.6; O2SAT 97–100
[2024-12-04] MEDS: Piperacil/Tazobactam 3.375 GM in 0.9% Normal Saline (50mL MB+) 50 ML IV ×3 (05:54→21:02)
[2024-12-04] MEDS: Metoprolol Tartrate 25 MG Tablet PO ×3 (05:54→21:03)
[2024-12-04] MEDS: Acetaminophen 500 MG Tablet 1000 MG PO ×3 (05:54→21:03)
--- NOTE | 2024-12-04 07:10 | PCM.PN.HOSP ---
Reason for Visit Reason for Visit: Intractable low back pain Subjective Subjective Patient states she is moving a little bit better. Anxious to have her procedure and hoping this helps considerably. Still plans on going home. States that the transitions are what bothers her the most and when she gets moving it is better. Does plan on continued use of a walker at home. Intermittently refuses therapy. Asks for some pain medicine states she has not had any well and she feels like she is probably due. I informed her I would discuss with the nurse Objective Data Objective Data Vital Signs: Vital Signs Temp Pulse Resp BP Pulse Ox O2 Del Method 97.6 F L 67 18 133/52 H 97 Room Air 12/04/24 02:04 12/04/24 05:54 12/04/24 02:04 12/04/24 05:54 12/04/24 02:04 12/04/24 02:04 Oxygen Delivery Method Room Air Weight: 94.846 kg Body Mass Index (BMI) 34.7 Intake & Output: Intake and Output for Last 24 Hours 12/02/24 12/03/24 12/04/24 23:59 23:59 23:59 Intake Total 800 / 800 300 / 300 50 / 50 Output Total 1200 / 1300 830 / 830 150 / 150 Balance -400 / -500 -530 / -530 -100 / -100 Lab / Micro Data 12/04/24 06:38 12/04/24 06:38 Labs: Laboratory Results - last 24 hr 12/03/24 21:40: Urine Color Yellow, Urine Clarity Cloudy, Urine pH 6.0, Ur Specific Hines 1.020, Urine Protein 100 H, Urine Glucose (UA) Normal, Urine Ketones Negative, Urine Occult Blood 250 H, Urine Nitrite Negative, Urine Bilirubin Negative, Urine Urobilinogen Normal, Ur Leukocyte Esterase 500 H, Urine RBC 0 SEEN, Urine WBC >100 SEEN, Ur Squamous Epith Cells 0 SEEN, Urine Bacteria 4+, Urine Mucus 0 SEEN Physical Exam Const alert, oriented x3, no apparent distress, healthy appearing and well nourished; Negative for average body habitus Constitutional Narrative: Obese, pleasant, elderly, white female, lying in bed flat on her back, watching television, appears comfortable HEENT normocephalic, head/scalp atraumatic and hearing grossly normal bilaterally Resp normal respiratory effort, no retractions, no use of accessory muscles and clear to auscultation bilaterally Auscultation: Negative for rales, rhonchi or wheezes Cardio regular rate, regular rhythm, S1 normal heart sound, S2 normal heart sound, no murmurs, no rub, no gallops and no clicks GI normal to inspection, nondistended, normoactive bowel sounds, soft to palpation and non-tender Extremity Extremity Narrative: Trace bilateral lower extremity pitting edema, no cyanosis or clubbing Neuro oriented x3, moves all extremities and no focal motor deficits Neuro Narrative: Mobility remains limited due to pain but no focal deficits Speech: speech normal Psych affect normal Psych Narrative: Very pleasant, talkative, interacts appropriately Assessment & Plan Assessment/Plan (1) Intractable low back pain: PLAN: Plan Intractable back pain with known history of severe T12 and mild L1 lumbar compression fractures suspect related to osteoporosis -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 -Continue scheduled Tylenol 1000 g every 8 -Continue as needed oxycodone -Continue as needed Dilaudid 0.5 mg for breakthrough -Continue as needed tizanidine -Continue lidocaine patch -Vitamin D level is appropriate -PT/OT following--> patient has intermittently been refusing therapy -Current plan is discharge home - Pain management evaluate the patient MRI is consistent with worsening compression fracture and plan is for kyphoplasty later today Gram-negative UTI - Patient complained of dysuria yesterday and culture was sent - Preliminary culture shows gram-negative tran - Will continue Zosyn and narrow as able SVT - Patient was having periodic episodes of SVT with heart rates in the 130s to 150s - No previous history - Case was discussed with previous hospitalist with cardiology and they agreed with starting low-dose metoprolol 25 mg 3 times daily - Seems to be better and nor formal consult was placed - Okay to monitor off telemetry Constipation - Continue scheduled senna/docusate - Continue scheduled MiraLAX - patient states she did have a large bowel movement yesterday so this is improved Chronic microcytic anemia - Iron studies were performed and consistent with iron deficiency -Was given a dose of IV iron - Continue iron supplementation 3 times daily -Encouraged use with orange juice at home to enhance absorption -No obvious signs of bleeding -Repeat CBC in a.m. Lower extremity bilateral edema - Bilateral lower extremity Dopplers were negative -TSH is within normal limits -BNP is within normal limits -Patient without any shortness of breath - Not consistent with heart failure likely related to chronic venous stasis and encouraged elevation and potentially compression garments if possible History of BPPV -Hold home meclizine and restart at discharge -Currently asymptomatic Insomnia -Continue home melatonin Essential hypertension -Continue home hydrochlorothiazide -Continue home metoprolol with transition dose to 3 times daily of 25 mg--> previously was on 25 mg daily History of vitamin D deficiency -Continue supplementation GERD -Continue home PPI Seasonal allergies -Continue home nasal spray DVT prophylaxis -Enoxaparin 40 daily CODE STATUS -DNR CCA with no intubation Charges/Coding Visit Charges Inpatient E&M: 97056 Subs Hosp L2
[2024-12-04 07:41] LABS: Absolute Lymphocyte Count 1.14 X10^3/uL (0.83-4.51); Absolute Neutrophil Count 4.1 X10^3/uL (2.0-7.7); Basophil# 0.05 X10^3/uL; Basophil% 0.8 % (0-1); Eosinophil# 0.17 X10^3/uL; Eosinophils% 2.9 % (0-5); Hematocrit 32.8 % (37-47); Hemoglobin 9.7 g/dL (12.0-15.0); Lymphocyte # 1.14 X10^3/ul (0.83-4.51); Lymphocyte % 19.1 % (19-41); Mean Corp Hgb Conc 29.6 g/dL (32-36); Mean Corpuscular Hgb 24.7 pg (27.0-32.0); Mean Corpuscular Volume 83.5 fL (81-99); Mean Platelet Vol. 10.1 fl (6.2-12.0); Monocyte# 0.45 X10^3/uL; Monocyte% 7.6 % (0-10); NRBC Flagged by Analyzer 0 % (0-5); Neutrophil # 4.06 X10^3/uL (2.7-7.7); Neutrophil % 68.1 % (47-70); Platelet Count 235 K/mm3 (150-450); RBC Distribution Width CV 17.2 % (11.6-14.6); RBC Distribution Width SD 48.8 fl (35.1-43.9); Red Blood Count 3.93 M/mm3 (4.2-5.4)
[2024-12-04 08:11] LABS: Anion Gap 8 (5-15); BUN 19 mg/dL (4-19); BUN/Creat Ratio 42.5 RATIO (10-20); Calcium,Total 8.7 mg/dL (7.6-11.0); Carbon Dioxide 25.5 mmol/L (21.0-32.0); Chloride 103 mmol/L (98-108); Creatinine, Serum 0.45 mg/dL (0.70-1.20); EST Glomerular Filtration Rate 95 (>60); Estimated Creatinine Clearance 59.61 ml/min (50-250); Glucose 116 mg/dL (70-99); Potassium 4.6 mmol/L (3.3-5.1); Sodium Level 137 mmol/L (133-145)
[2024-12-04] MEDS: Fluticasone 0.05% 1 SPRAY NASAL.SRY NASAL (08:44)
[2024-12-04] MEDS: Dorzolamide HCL/Timolol 10 ml Bottle 1 DRP EACH EYE ×2 (08:45→21:04)
[2024-12-04] MEDS: Menthol/Lanolin/Calamine/Znox 113 GM Tube 1 APPLIC TOPICAL ×2 (08:46→21:04)
[2024-12-04] MEDS: HYDROmorphone 0.5 MG/0.5 ML SYRINGE IV (10:29)
[2024-12-04] MEDS: 0.9% Saline Lock 10 ML Syringe IV ×2 (10:30→15:05)
[2024-12-04] MEDS: 0.9% Normal Saline (1000mL) 1,000 ML 15 ML IV (12:20)
--- NOTE | 2024-12-04 12:22 | PCM.PRE.AN2 ---
ASA Classification* ASA Classification ASA Classification: 3 Assessment & Plan Anesthesia* Anesthesia Assessment Anesthesia Assessment: Discussed sedation and/or anesthesia options, risks, benefits, and alternatives with patient/parents/legal guardian/POA. Questions invited. The patient/parents/legal guardian/POA seems to understand and agrees to proceed with anesthesia plan. Reviewed the physical assessment, medical history, allergy history and patient home medications list prior to surgery/procedure/anesthetic and documented any changes. Performed airway and anesthesia risk assessments. Anesthesia Type Anesthesia Type: MAC (GA bkup. patient being treated for UTI. Surgeon aware) Anesthesia Focused Assessment* Temperature: 97.5 F Pulse Rate: 66 Blood Pressure: 119/47 Respiratory Rate: 18 Pulse Ox: 98 Airway Assessment Mouth opens: >3 cm Mallampati Score: II Comment: patient surgery cancelled last Wednesday due to increased heart rate 120-130. Now improved with Meroprolol Focused Labs Anesthesia Preop lab: CBC WBC 6.0 K/mm3 (4.4-11.0) 12/04/24 06:38 12/04/24 RBC 3.93 M/mm3 (4.2-5.4) L 12/04/24 06:38 12/04/24 Hgb 9.7 g/dL (12.0-15.0) L 12/04/24 06:38 12/04/24 Hct 32.8 % (37-47) L 12/04/24 06:38 12/04/24 Plt Count 235 K/mm3 (150-450) 12/04/24 06:38 12/04/24 CHEMISTRY Potassium 4.6 mmol/L (3.3-5.1) 12/04/24 06:38 12/04/24 Sodium 137 mmol/L (133-145) 12/04/24 06:38 12/04/24 Magnesium 1.6 mg/dL (1.5-2.2) 11/29/24 18:25 11/29/24 Phosphorus 3.5 mg/dL (2.7-4.5) 11/26/24 03:59 11/26/24 BUN 19 mg/dL (4-19) 12/04/24 06:38 12/04/24 Creatinine 0.45 mg/dL (0.70-1.20) L 12/04/24 06:38 12/04/24 Glucose 116 mg/dL (70-99) H 12/04/24 06:38 12/04/24 TSH 2.950 uIU/mL (0.300-4.200) 11/26/24 03:59 11/26/24 COAG Pre-Assessment Diagnosis/Proposed Procedure Planned Operative Procedure(s): Kyphoplasty Anesthesia History 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 When Was Last Pacemaker Check QUESTION #4 FULL TEXT: You/Your Family Experience fever (hyperthermia) with Anesthesia Last Oral Intake Last Oral intake: Last Oral Intake NPO since 00:00 11/29/24 08:30 Meds taken in AM with sips of Yes 11/29/24 08:30 water? Meds patient instructed to Metoprolol 11/29/24 08:30 take am of surgery PONV PONV - garage manager: PONV - garage manager Female HX of Motion Sickness HX of N/V After Surgery Non-Smoker Duration of Surgery greater than 60 minutes Number of Risk Factors PONV Score Height & Weight Height & Weight: Anesthesia: Height & Weight Height 5 ft 5 in 12/01/24 13:43 Weight: 94.846 kg 12/01/24 13:43 Body Mass Index (BMI) 34.7 11/29/24 08:30 Respiratory Assessment Respiratory Assessment - garage manager: Respiratory Tract Infection Hx - garage manager Hx Respiratory Tract Infection No 11/28/24 07:24 STOP Sleep Apnea STOP Sleep Apnea - garage manager: STOP Sleep Apnea - garage manager Hx Hypertension No 11/26/24 12:04 Hx Sleep Apnea No 11/29/24 15:02 CPAP BIPAP Do you snore loudly (louder No 11/25/24 14:20 than talking or can be heard Do you often feel tired/ Yes 11/25/24 14:20 fatigued/ sleepy during daytime? Has anyone observed you stop No 11/25/24 14:20 breathing during sleep? STOP Results Negative 11/25/24 14:20 QUESTION #5 FULL TEXT : Do you snore loudly (louder than talking or can be heard through closed doors)? 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 Specify any problems Hx of Preganancy in last 3 N/A 11/25/24 14:20 Months Nurse Filling Out Transfusion [id number] 11/25/24 14:20 & Questions: Date: 11/25/24 11/25/24 14:20 Time: 14:47 11/25/24 14:20 Patient unable to answer at this time (ie. confused, unrespo /Reproduction History /Reproductive History - garage manager: /Reproductive Hx- garage manager Hx Now No 11/28/24 07:24 Gestational Age (in weeks): EDC: Hx Hx Para Hx Section SAB No 11/28/24 07:24 Active Medications Active Medications: Current Medications Generic Name Dose Route Start Last Admin Trade Name Freq PRN Reason Stop Dose Admin Acetaminophen 1,000 mg 11/25/24 16:00 12/04/24 05:54 Acetaminophen 500 Mg Tablet PO 1,000 mg Q8 TAMMIE Administration Albuterol Sulfate 2.5 mg 11/25/24 15:01 Albuterol 2.5 Mg/3 Ml Vial.Neb. INHALATION Q2H PRN PRN SOB &/OR WHEEZING Calamine/Phenol 1 applic 12/03/24 10:00 12/04/24 08:46 Menthol/Lanolin/Calamine/Znox 113 Gm Tube TOPICAL 1 applic BID TAMMIE Administration Protocol Calcium Carbonate 500 mg 11/26/24 08:00 12/03/24 08:17 Calcium (Elemental) 500 Mg Tablet PO Not Given DAILY TAMMIE Calcium Carbonate 500 mg 12/04/24 02:17 Calcium Carbonate 500 Mg Tablet PO Q6H PRN PRN HEARTBURN OR INDIGESTION Celecoxib 100 mg 11/26/24 11:00 12/03/24 08:23 Celecoxib 100 Mg Capsule PO 100 mg DAILY TAMMIE Administration Cholecalciferol 25 mcg 11/26/24 10:00 12/03/24 08:18 Cholecalciferol (Vit D3) 25 Mcg Tablet (1,000 Units) PO Not Given DAILY TAMMIE Docusate Sodium 100 mg 11/25/24 15:01 11/27/24 14:00 Docusate Sodium 100 Mg Capsule PO 100 mg BID PRN PRN Administration Constipation Dorzolamide/Timolol 1 drp 11/25/24 22:00 12/04/24 08:45 Dorzolamide Hcl/Timolol 10 Ml Bottle EACH EYE 1 drp BID TAMMIE Administration Enoxaparin Sodium 40 mg 11/26/24 10:00 12/03/24 08:17 Enoxaparin 40 Mg/0.4 Ml Syringe SC 40 mg DAILY TAMMIE Administration Ferrous Gluconate 324 mg 11/29/24 12:00 12/03/24 16:38 Ferrous Gluconate 324 Mg Tablet PO 324 mg TIDCM TAMMIE Administration Fluticasone Propionate 1 spray 11/26/24 10:00 12/04/24 08:44 Fluticasone 0.05% 1 [place] Nasal.Sry NASAL 1 spray DAILY TAMMIE Administration Gabapentin 100 mg 11/25/24 15:01 12/03/24 16:37 Gabapentin 100 Mg Capsule PO 100 mg TIDCM TAMMIE Administration Guaifenesin 1,200 mg 11/25/24 22:00 12/03/24 22:01 Guaifenesin 1,200 Mg Tablet PO Not Given BID TAMMIE Hydrochlorothiazide 12.5 mg 11/26/24 10:00 12/03/24 08:16 Hydrochlorothiazide 12.5mg PO 12.5 mg DAILY TAMMIE Administration Protocol Hydromorphone HCl 0.5 mg 11/25/24 15:01 12/04/24 10:29 Hydromorphone 0.5 Mg/0.5 Ml Syringe IV 0.5 mg Q3H PRN PRN Administration Pain Score 6-10 or Pre PT/OT Sodium Chloride 100 mls @ 15 mls/hr 11/25/24 14:59 12/01/24 14:51 IV Infused .Q6H40M PRN Infusion Saline Flush Sodium Chloride 100 mls @ 15 mls/hr 11/25/24 14:59 IV .Q6H40M PRN Additional IVPB Infusion Piperacillin Sod/Tazobactam 50 mls @ 12.5 mls/hr 12/03/24 23:30 12/04/24 09:54 Sod 3.375 gm/ Sodium Chloride IV Infused Q8 TAMMIE Infusion Sodium Chloride 1,000 mls @ 15 mls/hr 12/04/24 12:20 IV .Q48H TAMMIE Lidocaine 1 patch 11/26/24 10:00 12/03/24 08:24 Lidocaine 5% Patch TOPICAL 1 patch DAILY [facility] Administration Protocol Magnesium Chloride 128 mg 11/26/24 10:00 12/03/24 08:17 Magnesium Chloride 64 Mg Delay Rel.Tablet PO Not Given DAILY [facility]1983 Melatonin 5 mg 11/25/24 17:51 Melatonin 10 Mg Tablet PO QHS PRN sleep Metoprolol Tartrate 25 mg 11/30/24 22:00 12/04/24 05:54 Metoprolol Tartrate 25 Mg Tablet PO 25 mg TID [facility]1983 Administration Protocol Multivitamins 1 tablet 11/26/24 08:00 12/03/24 08:17 Multivitamins,Therapeutic Tablet [facility] Ond[facility] 4 mg 11/25/24 15:01 12/02/24 08:53 Ondansetron 4 Mg/2 Ml Vial IV 4 mg Q8H PRN PRN Administration NAUSEA/VOMITING Oxycodone HCl 5 mg 11/25/24 15:12/03/24 23:25 Oxycodone 5 Mg Tablet PO 5 mg Q4H PRN PRN Administration Pain Score 4-10 Pantoprazole Sodium 40 mg 11/26/24 10:00 12/03/24 08:16 Pantoprazole Sodium 40 Mg Tablet PO 40 mg DAILY [facility]1983 Administration Polyethylene Glycol 17 gm 11/29/24 16:45 12/03/24 08:25 Polyethylene Glycol 3350 17 Gm Packet PO Not Given DAILY TAMMIE Senna/Docusate Sodium 2 tablet 11/25/24 22:00 12/03/24 22:02 Senna/Docusate Sodium 1 Tablet PO 1 tablet BID TAMMIE Administration Sodium Chloride 10 - 40 ml 11/25/24 14:59 12/04/24 10:30 0.9% Saline Lock 10 Ml Syringe IV 10 ml UD PRN Administration SALINE FLUSH Tizanidine HCl 4 mg 11/25/24 15:01 11/27/24 14:00 Tizanidine Hcl 2 Mg Tablet PO 4 mg Q8H PRN PRN Administration Muscle Spasms/Musculoskeletal Pain PFSH Medical History Hemorrhoids Cancer Arthritis Hypertension GERD (gastroesophageal reflux disease) Constipation BPPV (benign paroxysmal positional vertigo) Compression fracture of L1 lumbar vertebra Home Medications ?Medication ?Instructions ?Recorded ?Last Taken ?Type calcium carbonate (Calcium 600) 600 mg PO DAILY 04/24/22 11/24/24 History calcium carbonate (Tums) 200 mg PO BID PRN dyspepsia 04/24/22 11/23/24 History fluticasone propionate 50 2 spray intranasal DAILY 04/24/22 Unknown History mcg/actuation nasal spray,suspension metoprolol succinate 25 mg 25 mg PO DAILY 04/24/22 11/24/24 History tablet,extended release 24 hr multivitamin 1 tab PO DAILY 04/24/22 11/24/24 History acetaminophen 650 mg 650 mg PO Q8H PRN pain 11/25/24 11/25/24 History tablet,extended release (Arthritis Pain Relief (acetaminophen) ER) baclofen 10 mg tablet 10 mg PO QHS MUSCLE SPASM 11/25/24 11/24/24 History cholecalciferol (vitamin D3) 25 25 mcg PO DAILY 11/25/24 11/24/24 History mcg (1,000 unit) capsule (Vitamin D3) cranberry 500 mg capsule 500 mg PO DAILY 11/25/24 Unknown History dorzolamide 22.3 mg-timolol 6.8 1 drp ophthalmic (eye) BID 11/25/24 Unknown History mg/mL eye drops guaifenesin 600 mg tablet, 600 mg PO BID PRN congestion 11/25/24 Unknown History extended release 12 hr (Mucinex) hydrochlorothiazide 25 mg tablet 25 mg PO DAILY 11/25/24 11/24/24 History ketorolac 0.5 % eye drops 1 drp ophthalmic (eye) TID 11/25/24 11/25/24 History magnesium oxide 400 mg (241.3 mg 400 mg PO DAILY 11/25/24 11/24/24 History magnesium) tablet meclizine 12.5 mg tablet 12.5 mg PO TID PRN dizziness 11/25/24 Unknown History melatonin 5 mg tablet 5 mg PO QHS PRN sleep 11/25/24 Unknown History naproxen 250 mg tablet 250 mg PO BID 11/25/24 11/24/24 History pantoprazole 40 mg tablet,delayed 40 mg PO DAILY 11/25/24 11/24/24 History release prednisone 10 mg tablet See Taper PO .COMPLEX 11/25/24 11/24/24 History Allergy/AdvReac Type Severity Reaction Status Date / Time norfloxacin (From Noroxin) Allergy unknown Verified 11/25/24 09:26 polymyxin B Allergy Swelling Verified 11/25/24 09:26 levofloxacin (From Levaquin) AdvReac Diarrhea Verified 11/25/24 09:26 phenylephrine (From Sudafed AdvReac Other Verified 11/25/24 09:26 PE) Surgical History History of gastric bypass History of hysterectomy Hx of shoulder replacement History of knee replacement Social History Smoking Status: Former smoker Review of Systems (Anesthesia) ROS Narrative System reviewed and no additional complaints, except as documented.
--- NOTE | 2024-12-04 12:53 | ANES.CONFIRM ---
Anesthesia: Confirm Documents Multiple Procedures on Account (2) Confirmed Documents: Yes
[2024-12-04] MEDS: Ondansetron 4 MG/2 ML Vial IV (15:03)
[2024-12-04] MEDS: Gabapentin 100 MG Capsule PO ×2 (15:03→18:18)
[2024-12-04] MEDS: Celecoxib 100 MG Capsule PO (15:04)
[2024-12-04] MEDS: oxyCODONE 5 MG Tablet PO ×2 (15:04→21:10)
[2024-12-04] MEDS: hydroCHLOROthiazide 12.5mg 12.5 MG PO (15:06)
[2024-12-04] MEDS: Senna/Docusate Sodium 1 Tablet 2 TABLET PO (21:03)
[2024-12-05] VITALS (9 sets, daily range): BP systolic 95–133; BP diastolic 42–65; PULSE 65–86; RESP 16–18; TEMP 36.4–36.9; O2SAT 95–98
[2024-12-05] MEDS: Piperacil/Tazobactam 3.375 GM in 0.9% Normal Saline (50mL MB+) 50 ML IV (05:25)
[2024-12-05] MEDS: Acetaminophen 500 MG Tablet 1000 MG PO ×3 (05:25→21:34)
[2024-12-05] MEDS: Metoprolol Tartrate 25 MG Tablet PO ×3 (05:25→21:35)
--- NOTE | 2024-12-05 06:54 | PN.HOSP_ITS ---
Reason for Visit Reason for Visit: Intractable low back pain Subjective Subjective Procedure was canceled yesterday by pain management due to urinary tract infection. Current plan is to proceed tomorrow after 48 hours of IV antibiotics. Cultures have resulted as ESBL E. coli. Antibiotics transitioned and ID consulted. This was discussed with the patient. Objective Data Objective Data Vital Signs: Vital Signs Temp Pulse Resp BP Pulse Ox O2 Del Method 98.5 F 72 16 133/55 H 98 Room Air 12/05/24 03:00 12/05/24 05:25 12/05/24 03:00 12/05/24 05:25 12/05/24 03:00 12/05/24 03:00 Oxygen Delivery Method Room Air Weight: 94.846 kg Body Mass Index (BMI) 34.7 Intake & Output: Intake and Output for Last 24 Hours 12/03/24 12/04/24 12/05/24 23:59 23:59 23:59 Intake Total 300 / 300 280 / 280 50 / 50 Output Total 830 / 830 150 / 150 250 / 250 Balance -530 / -530 130 / 130 -200 / -200 Lab / Micro Data 12/04/24 06:38 12/04/24 06:38 Labs: Laboratory Results - last 24 hr 12/04/24 06:38: WBC 6.0, RBC 3.93 L, Hgb 9.7 L, Hct 32.8 L, MCV 83.5, MCH 24.7 L , MCHC 29.6 L, RDW Std Deviation 48.8 H, RDW Coeff of Arturo 17.2 H, Plt Count 235, MPV 10.1, Immature Gran % (Auto) 1.500 H, Neut % (Auto) 68.1, Lymph % (Auto) 19.1, [place] % (Auto) 7.6, Eos % (Auto) 2.9, Baso % (Auto) 0.8, Absolute Neuts (auto) 4.1, Absolute Lymphs (auto) 1.14, Nucleated RBC % 0, Sodium 137, Potassium 4.6, Chloride 103, Carbon Dioxide 25.5, Anion Gap 8, BUN 19, C reatinine 0.45 L, Estim Creat Clear Calc 59.61, Est GFR (MDRD) Non-Af 95, B UN/Creatinine Ratio 42.5 H, Glucose 116 H, Calcium 8.7 Micro: Microbiology 12/03/24 21:40 Urine, Clean Catch Urine Culture - Preliminary Gram negative tran Physical Exam Const alert, oriented x3, no apparent distress, healthy appearing and well nourished; Negative for average body habitus Constitutional Narrative: Obese, pleasant, elderly, white female, lying in bed slightly reclined watching television, appears comfortable HEENT normocephalic, head/scalp atraumatic and hearing grossly normal bilaterally Resp normal respiratory effort, no retractions, no use of accessory muscles and clear to auscultation bilaterally Auscultation: Negative for rales, rhonchi or wheezes Cardio regular rate, regular rhythm, S1 normal heart sound, S2 normal heart sound, no murmurs, no rub, no gallops and no clicks GI normal to inspection, nondistended, normoactive bowel sounds, soft to palpation and non-tender Extremity Extremity Narrative: Trace bilateral lower extremity pitting edema, no cyanosis or clubbing Neuro oriented x3, moves all extremities and no focal motor deficits Neuro Narrative: Mobility remains limited due to pain but no focal deficits Speech: speech normal Psych affect normal Psych Narrative: Very pleasant, talkative, interacts appropriately Assessment & Plan Assessment/Plan (1) Intractable low back pain: (2) Infection due to ESBL-producing Escherichia coli: (3) Collapse of lumbar vertebra: QUALIFIERS: Encounter type: initial encounter Qualified Code(s): M48.56XA - Collapsed vertebra, not elsewhere classified, lumbar region, initial encounter for fracture (4) Age-related osteoporosis with current pathological fracture, unspecified site, initial encounter for fracture: (5) Compression fracture of L1 lumbar vertebra: PLAN: Plan Intractable back pain with known history of severe T12 and mild L1 lumbar compression fractures suspect related to osteoporosis -MRI does show acute on chronic disease -Continue scheduled Tylenol 1000 g every 8 -Continue as needed oxycodone -Continue as needed Dilaudid 0.5 mg for breakthrough -Continue as needed tizanidine -Continue lidocaine patch -Vitamin D level is appropriate -PT/OT following--> patient has intermittently been refusing therapy - Plan remains for discharge home with possibly home health - Pain management canceled kyphoplasty yesterday due to urinary tract infection--> plan is for procedure tomorrow morning after patient has been on antibiotics for 48 hours ESBL E. coli UTI - Zosyn discontinued and antibiotic transition to meropenem - ID was consulted - Possible p.o. Bactrim at discharge but will need to discontinue NSAID SVT - Patient was having periodic episodes of SVT with heart rates in the 130s to 150s - Resolved with initiation of beta-kaylie -Okay to be off telemetry Constipation -Resolved but will continue bowel regimen with decreased mobility and ongoing pain management with narcotics - Continue scheduled senna/docusate - Continue scheduled MiraLAX Chronic microcytic anemia - Iron studies were performed and consistent with iron deficiency -Was given a dose of IV iron - Continue iron supplementation 3 times daily -Encouraged use with orange juice at home to enhance absorption -No obvious signs of bleeding Lower extremity bilateral edema - Bilateral lower extremity Dopplers were negative -TSH is within normal limits -BNP is within normal limits -Patient without any shortness of breath - Not consistent with heart failure likely related to chronic venous stasis and encouraged elevation and potentially compression garments if possible History of BPPV -Hold home meclizine and restart at discharge -Currently asymptomatic Insomnia -Continue home melatonin Essential hypertension -Continue home hydrochlorothiazide -Continue home metoprolol with transition dose to 3 times daily of 25 mg--> previously was on 25 mg daily - Blood pressure control has remained good with this transition History of vitamin D deficiency -Continue supplementation GERD -Continue home PPI Seasonal allergies -Continue home nasal spray DVT prophylaxis -Enoxaparin 40 daily CODE STATUS -DNR CCA with no intubation Charges/Coding Visit Charges Inpatient E&M: 96140 Subs Hosp L2
[2024-12-05] MEDS: Meropenem 1 GM in 0.9% Normal Saline (100mL MB+) 100 ML IV ×3 (09:01→21:34)
[2024-12-05] MEDS: Ferrous Gluconate 324 MG Tablet PO ×3 (09:15→17:15)
[2024-12-05] MEDS: Gabapentin 100 MG Capsule PO ×3 (09:16→17:15)
[2024-12-05] MEDS: Menthol/Lanolin/Calamine/Znox 113 GM Tube 1 APPLIC TOPICAL ×2 (09:16→21:35)
[2024-12-05] MEDS: Celecoxib 100 MG Capsule PO (09:16)
[2024-12-05] MEDS: Dorzolamide HCL/Timolol 10 ml Bottle 1 DRP EACH EYE ×2 (09:16→21:35)
[2024-12-05] MEDS: hydroCHLOROthiazide 12.5mg 12.5 MG PO (09:17)
[2024-12-05] MEDS: Magnesium Chloride 64 MG Delay Rel.Tablet 128 MG PO (09:17)
[2024-12-05] MEDS: Fluticasone 0.05% 1 SPRAY NASAL.SRY NASAL (09:17)
[2024-12-05] MEDS: Lidocaine 5% Patch 1 PATCH TOPICAL (09:17)
[2024-12-05] MEDS: Enoxaparin 40 MG/0.4 ML Syringe SC (09:17)
[2024-12-05] MEDS: Pantoprazole Sodium 40 MG Tablet PO (09:18)
[2024-12-05] MEDS: Senna/Docusate Sodium 1 Tablet 2 TABLET PO ×2 (09:18→21:35)
--- NOTE | 2024-12-05 10:38 | PCM.CONS.GEN ---
Assessment & Plan Assessment/Plan (1) Intractable low back pain: (2) Infection due to ESBL-producing Escherichia coli: PLAN: UTI on meropenem, will continue. Po bactrim would be an option, but will avoid for now given NSAIDs and planned surgery. Will follow, thank you HPI Consult Data Date of Consult: 12/05/24 HPI Narrative Reason for Consultation: uti HPI Narrative: TORSTEN COLINDRES, is a 84 F who presented 11/25 with acute worsening of lower back pain. Had T12-L1 fracture about 8 years ago. Pain worsened after lifting something at home, did not improve despite steroids, NSAIDS, and muscle relaxers from PCP. Came to ED, admitted. Had constipation, now improved with bowel regimen. Surgery planned, but now with 2-3 days dysuria. Started on zosyn now changed to fabrizio due to (+) esbl. Full ROS performed and neg except as noted above. [facility] Medical History Hemorrhoids Cancer Arthritis Hypertension GERD (gastroesophageal reflux disease) Constipation BPPV (benign paroxysmal positional vertigo) Compression fracture of L1 lumbar vertebra Home Medications ?Medication ?Instructions ?Recorded ?Last Taken ?Type calcium carbonate (Calcium 600) 600 mg PO DAILY 04/24/22 11/24/24 History calcium carbonate (Tums) 200 mg PO BID PRN dyspepsia 04/24/22 11/23/24 History fluticasone propionate 50 2 spray intranasal DAILY 04/24/22 Unknown History mcg/actuation nasal spray,suspension metoprolol succinate 25 mg 25 mg PO DAILY 04/24/22 11/24/24 History tablet,extended release 24 hr multivitamin 1 tab PO DAILY 04/24/22 11/24/24 History acetaminophen 650 mg 650 mg PO Q8H PRN pain 11/25/24 11/25/24 History tablet,extended release (Arthritis Pain Relief (acetaminophen) ER) baclofen 10 mg tablet 10 mg PO QHS MUSCLE SPASM 11/25/24 11/24/24 History cholecalciferol (vitamin D3) 25 25 mcg PO DAILY 11/25/24 11/24/24 History mcg (1,000 unit) capsule (Vitamin D3) cranberry 500 mg capsule 500 mg PO DAILY 11/25/24 Unknown History dorzolamide 22.3 mg-timolol 6.8 1 drp ophthalmic (eye) BID 11/25/24 Unknown History mg/mL eye drops guaifenesin 600 mg tablet, 600 mg PO BID PRN congestion 11/25/24 Unknown History extended release 12 hr (Mucinex) hydrochlorothiazide 25 mg tablet 25 mg PO DAILY 11/25/24 11/24/24 History ketorolac 0.5 % eye drops 1 drp ophthalmic (eye) TID 11/25/24 11/25/24 History magnesium oxide 400 mg (241.3 mg 400 mg PO DAILY 11/25/24 11/24/24 History magnesium) tablet meclizine 12.5 mg tablet 12.5 mg PO TID PRN dizziness 11/25/24 Unknown History melatonin 5 mg tablet 5 mg PO QHS PRN sleep 11/25/24 Unknown History naproxen 250 mg tablet 250 mg PO BID 11/25/24 11/24/24 History pantoprazole 40 mg tablet,delayed 40 mg PO DAILY 11/25/24 11/24/24 History release prednisone 10 mg tablet See Taper PO .COMPLEX 11/25/24 11/24/24 History Allergy/AdvReac Type Severity Reaction Status Date / Time norfloxacin (From Noroxin) Allergy unknown Verified 11/25/24 09:26 polymyxin B Allergy Swelling Verified 11/25/24 09:26 levofloxacin (From Levaquin) AdvReac Diarrhea Verified 11/25/24 09:26 phenylephrine (From Sudafed AdvReac Other Verified 11/25/24 09:26 PE) Surgical History History of gastric bypass History of hysterectomy Hx of shoulder replacement History of knee replacement Social History Smoking Status: Former smoker Physical Exam Const alert, oriented x3 and no apparent distress General Appearance: cooperative HEENT normocephalic and head/scalp atraumatic Eyes PERRL and EOMs intact bilaterally Neck supple and No nodes Resp normal air movement and clear to auscultation bilaterally Cardio regular rate and regular rhythm GI soft to palpation, non-tender and non-distended Extremity General Extremity: Negative for edema Skin no rashes or lesions noted Neuro CN's II-XII intact bilaterally Lab / Micro Data Attestation: I reviewed the patient's lab results. 12/04/24 06:38 12/04/24 06:38 Micro: Microbiology 12/03/24 21:40 Urine, Clean Catch Urine Culture - Final ESBL Escherichia coli
--- NOTE | 2024-12-05 16:29 | CHAPLAIN ---
Type of Pastoral Visit ___ Initial Visit _x__ Follow-up Visit ___ On-call Visit ___ General Patient Visit ___ Spiritual Assessment ___ Family Conference ___ Bereavement ___ Rapid Response ___ Code Blue ___ Other (describe below) Pastoral Care Referral From _x__ Patient ___ Family ___ Nurse ___ Physician ___ Hvac Manager ___ Hand Wood Sander ___ Other (describe below) Sacrament/Intervention _x__ Active listening ___ Anointing ___ Congregational ___ Bereavement ___ Communion _x__ Liz exploration ___ _x__ Life review _x__ Prayer ___ Reconciliation ___ Sacrament of Sick _x__ Supportive presence ___ Wedding ___ Other (describe below) Pastoral Comments
[2024-12-05] MEDS: Ondansetron 4 MG/2 ML Vial IV (23:00)
[2024-12-05] MEDS: oxyCODONE 5 MG Tablet PO (23:00)
[2024-12-05] MEDS: 0.9% Saline Lock 10 ML Syringe IV (23:01)
[2024-12-06] VITALS (17 sets, daily range): BP systolic 103–149; BP diastolic 49–74; PULSE 56–78; RESP 16–18; TEMP 36.1–36.9; O2SAT 95–100; BMI 34.7
[2024-12-06] MEDS: HYDROmorphone 0.5 MG/0.5 ML SYRINGE IV (00:08)
[2024-12-06] MEDS: 0.9% Saline Lock 10 ML Syringe IV (00:09)
[2024-12-06 05:25] LABS: Hematocrit 31.9 % (37-47); Hemoglobin 9.5 g/dL (12.0-15.0); Mean Corp Hgb Conc 29.8 g/dL (32-36); Mean Corpuscular Hgb 24.7 pg (27.0-32.0); Mean Corpuscular Volume 83.1 fL (81-99); Mean Platelet Vol. 10.1 fl (6.2-12.0); Platelet Count 225 K/mm3 (150-450); RBC Distribution Width CV 17.7 % (11.6-14.6); RBC Distribution Width SD 49.1 fl (35.1-43.9); Red Blood Count 3.84 M/mm3 (4.2-5.4); White Blood Count 5.3 K/mm3 (4.4-11.0)
[2024-12-06 05:40] LABS: Scan Indicated on CBC? Y/N NO
[2024-12-06] MEDS: Acetaminophen 500 MG Tablet 1000 MG PO ×2 (05:53→22:00)
[2024-12-06] MEDS: Meropenem 1 GM in 0.9% Normal Saline (100mL MB+) 100 ML IV ×2 (05:53→22:00)
[2024-12-06] MEDS: Metoprolol Tartrate 25 MG Tablet PO ×2 (05:53→22:00)
[2024-12-06 06:08] LABS: Anion Gap 10 (5-15); BUN 16 mg/dL (4-19); BUN/Creat Ratio 43.1 RATIO (10-20); Calcium,Total 8.5 mg/dL (7.6-11.0); Carbon Dioxide 24.1 mmol/L (21.0-32.0); Chloride 105 mmol/L (98-108); Creatinine, Serum 0.37 mg/dL (0.70-1.20); EST Glomerular Filtration Rate 99 (>60); Estimated Creatinine Clearance 59.61 ml/min (50-250); Glucose 114 mg/dL (70-99); Potassium 3.3 mmol/L (3.3-5.1); Sodium Level 138 mmol/L (133-145)
[2024-12-06] MEDS: Loperamide 2 MG Capsule PO (08:47)
[2024-12-06] MEDS: Menthol/Lanolin/Calamine/Znox 113 GM Tube 1 APPLIC TOPICAL ×2 (10:19→22:00)
[2024-12-06] MEDS: Fluticasone 0.05% 1 SPRAY NASAL.SRY NASAL (10:25)
[2024-12-06] MEDS: Dorzolamide HCL/Timolol 10 ml Bottle 1 DRP EACH EYE ×2 (10:25→22:00)
--- NOTE | 2024-12-06 12:48 | PCM.PN.ID ---
Physical Exam Narrative Feeling ok, OR planned, dysuria resolved, c/o diarrhea. Const alert and no apparent distress General Appearance: cooperative Resp normal air movement and clear to auscultation bilaterally Cardio regular rate and regular rhythm GI soft to palpation, non-tender and non-distended Skin no rashes or lesions noted ID ID: Route of nutrition/ use of supplements: [] Nutritional Intake: [] IV Site: [] Jacobsen Catheter: [] Assessment & Plan Assessment/Plan (1) Intractable low back pain: (2) Infection due to ESBL-producing Escherichia coli: PLAN: UTI on meropenem, will continue. Po bactrim would be an option, but will avoid for now given NSAIDs and planned surgery. C/o diarrhea, was given imodium but still with scheduled polyethylene glycol. Will follow
--- NOTE | 2024-12-06 13:25 | PCM.PN.HOSP ---
Reason for Visit Reason for Visit: Intractable low back pain Subjective Subjective Patient complained of some diarrhea today. States it is related to the bowel regimen we have her on and antibiotics. She does request that when she goes home she was on with something for nausea as antibiotics always to her upper stomach. Plan is for kyphoplasty today. Patient is excited and hopeful to go home tomorrow. Objective Data Objective Data Vital Signs: Vital Signs Temp Pulse Resp BP Pulse Ox O2 Del Method 97.5 F L 58 L 17 127/59 H 100 Room Air 12/06/24 11:39 12/06/24 11:39 12/06/24 11:39 12/06/24 11:39 12/06/24 11:39 12/06/24 11:39 Oxygen Delivery Method Room Air Weight: 94.846 kg Body Mass Index (BMI) 34.7 Intake & Output: Intake and Output for Last 24 Hours 12/04/24 12/05/24 12/06/24 23:59 23:59 23:59 Intake Total 280 / 280 340 / 340 240 / 240 Output Total 150 / 150 250 / 250 Balance 130 / 130 90 / 90 240 / 240 Lab / Micro Data 12/06/24 04:57 12/06/24 04:57 Labs: Laboratory Results - last 24 hr 12/06/24 04:57: WBC 5.3, RBC 3.84 L, Hgb 9.5 L, Hct 31.9 L, MCV 83.1, MCH 24.7 L, MCHC 29.8 L, RDW Std Deviation 49.1 H, RDW Coeff of Arturo 17.7 H, Plt Count 225, MPV 10.1, Sodium 138, Potassium 3.3, Chloride 105, Carbon Dioxide 24.1, Anion Gap 10, BUN 16, Creatinine 0.37 L, Estim Creat Clear Calc 59.61, Est GFR (MDRD) Non-Af 99, BUN/Creatinine Ratio 43.1 H, Glucose 114 H, Calcium 8.5 Micro: Microbiology 12/03/24 21:40 Urine, Clean Catch Urine Culture - Final ESBL Escherichia coli Physical Exam Const alert, oriented x3, no apparent distress, healthy appearing and well nourished; Negative for average body habitus Constitutional Narrative: Obese, pleasant, elderly, white female, lying in bed slightly reclined watching television, appears comfortable HEENT normocephalic, head/scalp atraumatic and hearing grossly normal bilaterally Resp normal respiratory effort, no retractions, no use of accessory muscles and clear to auscultation bilaterally Auscultation: Negative for rales, rhonchi or wheezes Cardio regular rate, regular rhythm, S1 normal heart sound, S2 normal heart sound, no murmurs, no rub, no gallops and no clicks GI normal to inspection, nondistended, normoactive bowel sounds, soft to palpation and non-tender Extremity no clubbing, cyanosis or edema Neuro oriented x3, moves all extremities and no focal motor deficits Neuro Narrative: Mobility remains limited due to pain but no focal deficits Speech: speech normal Psych affect normal Psych Narrative: Very pleasant, talkative, interacts appropriately Assessment & Plan Assessment/Plan (1) Intractable low back pain: (2) Infection due to ESBL-producing Escherichia coli: (3) Collapse of lumbar vertebra: QUALIFIERS: Encounter type: initial encounter Qualified Code(s): M48.56XA - Collapsed vertebra, not elsewhere classified, lumbar region, initial encounter for fracture (4) Age-related osteoporosis with current pathological fracture, unspecified site, initial encounter for fracture: (5) Compression fracture of L1 lumbar vertebra: PLAN: Plan Intractable back pain with known history of severe T12 and mild L1 lumbar compression fractures suspect related to osteoporosis -MRI does show acute on chronic disease -Continue scheduled Tylenol 1000 g every 8 -Continue as needed oxycodone -Continue as needed Dilaudid 0.5 mg for breakthrough -Continue as needed tizanidine -Continue lidocaine patch -Vitamin D level is appropriate -PT/OT following--> patient has intermittently been refusing therapy - Plan remains for discharge home with possibly home health -Kyphoplasty today - Discontinue bowel regimen with diarrhea ESBL E. coli UTI -Continue meropenem -ID is following - Possible p.o. Bactrim at discharge but will need to discontinue NSAID SVT - Patient was having periodic episodes of SVT with heart rates in the 130s to 150s - Resolved with initiation of beta-kaylie--> will change beta-kaylie to 3 times daily 25 mg at discharge -Okay to be off telemetry Constipation -And now with diarrhea -Discontinue scheduled senna/docusate -Discontinue scheduled MiraLAX Chronic microcytic anemia - Iron studies were performed and consistent with iron deficiency -Was given a dose of IV iron - Continue iron supplementation 3 times daily -Encouraged use with orange juice at home to enhance absorption -No obvious signs of bleeding - Hemoglobin is stable Lower extremity bilateral edema - Bilateral lower extremity Dopplers were negative -TSH is within normal limits -BNP is within normal limits -Patient without any shortness of breath - Not consistent with heart failure likely related to chronic venous stasis and encouraged elevation and potentially compression garments if possible - Edema appears improved History of BPPV -Hold home meclizine and restart at discharge -Currently asymptomatic Insomnia -Continue home melatonin Essential hypertension -Continue home hydrochlorothiazide -Continue metoprolol 25 mg p.o. twice daily - Blood pressure control has remained good with this transition History of vitamin D deficiency -Continue supplementation GERD -Continue home PPI Seasonal allergies -Continue home nasal spray DVT prophylaxis -Enoxaparin 40 daily CODE STATUS -DNR CCA with no intubation Charges/Coding Visit Charges Inpatient E&M: 09712 Subs Hosp L2
--- NOTE | 2024-12-06 13:38 | PCM.PRE.AN2 ---
ASA Classification* ASA Classification ASA Classification: 3 Assessment & Plan Anesthesia* Anesthesia Assessment Anesthesia Assessment: Discussed sedation and/or anesthesia options, risks, benefits, and alternatives with patient/parents/legal guardian/POA. Questions invited. The patient/parents/legal guardian/POA seems to understand and agrees to proceed with anesthesia plan. Reviewed the physical assessment, medical history, allergy history and patient home medications list prior to surgery/procedure/anesthetic and documented any changes. Performed airway and anesthesia risk assessments. Anesthesia Type Anesthesia Type: General Anesthesia Focused Assessment* Temperature: 97.5 F Pulse Rate: 58 Blood Pressure: 127/59 Respiratory Rate: 17 Pulse Ox: 100 Airway Assessment Mouth opens: >3 cm Mallampati Score: II Focused Labs Anesthesia Preop lab: CBC WBC 5.3 K/mm3 (4.4-11.0) 12/06/24 04:57 12/06/24 RBC 3.84 M/mm3 (4.2-5.4) L 12/06/24 04:57 12/06/24 Hgb 9.5 g/dL (12.0-15.0) L 12/06/24 04:57 12/06/24 Hct 31.9 % (37-47) L 12/06/24 04:57 12/06/24 Plt Count 225 K/mm3 (150-450) 12/06/24 04:57 12/06/24 CHEMISTRY Potassium 3.3 mmol/L (3.3-5.1) 12/06/24 04:57 12/06/24 Sodium 138 mmol/L (133-145) 12/06/24 04:57 12/06/24 Magnesium 1.6 mg/dL (1.5-2.2) 11/29/24 18:25 11/29/24 Phosphorus 3.5 mg/dL (2.7-4.5) 11/26/24 03:59 11/26/24 BUN 16 mg/dL (4-19) 12/06/24 04:57 12/06/24 Creatinine 0.37 mg/dL (0.70-1.20) L 12/06/24 04:57 12/06/24 Glucose 114 mg/dL (70-99) H 12/06/24 04:57 12/06/24 TSH 2.950 uIU/mL (0.300-4.200) 11/26/24 03:59 11/26/24 COAG Pre-Assessment Diagnosis/Proposed Procedure Planned Operative Procedure(s): Kyphoplasty Anesthesia History 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 When Was Last Pacemaker Check QUESTION #4 FULL TEXT: You/Your Family Experience fever (hyperthermia) with Anesthesia Last Oral Intake Last Oral intake: Last Oral Intake NPO since 00:00 12/06/24 11:41 Meds taken in AM with sips of Yes 12/06/24 11:41 water? 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: PONV - director of food and beverage services Female HX of Motion Sickness HX of N/V After Surgery Non-Smoker Duration of Surgery greater than 60 minutes Number of Risk Factors PONV Score Height & Weight Height & Weight: Anesthesia: Height & Weight Height 5 ft 5 in 12/06/24 11:41 Weight: 94.846 kg 12/06/24 11:41 Body Mass Index (BMI) 34.7 12/06/24 11:41 Respiratory Assessment Respiratory Assessment - director of food and beverage services: Respiratory Tract Infection Hx - director of food and beverage services Hx Respiratory Tract Infection No 11/28/24 07:24 STOP Sleep Apnea STOP Sleep Apnea - director of food and beverage services: STOP Sleep Apnea - director of food and beverage services Hx Hypertension No 12/05/24 14:36 Hx Sleep Apnea No 11/29/24 15:02 CPAP BIPAP Do you snore loudly (louder No 11/25/24 14:20 than talking or can be heard Do you often feel tired/ Yes 11/25/24 14:20 fatigued/ sleepy during daytime? Has anyone observed you stop No 11/25/24 14:20 breathing during sleep? STOP Results Negative 11/25/24 14:20 QUESTION #5 FULL TEXT : Do you snore loudly (louder than talking or can be heard through closed doors)? Tobacco Use History Tobacco Use History - director of food and beverage services: Tobacco Use History - director of food and beverage services Tobacco Use Smoking Status Former smoker 11/25/24 14:20 Hx Tobacco Use No 11/25/24 14:20 Years Smoking Packs Smoked per Day Smoking Cessation Date was Yes - quit smoking within 15 11/25/24 14:20 within the last 15 years years Hx Smoking Cessation Date 08/16/00 11/25/24 14:20 Hx Smoking Cessation No 11/25/24 14:20 Counseling Hematologic Medial History Hematologic Hx - director of food and beverage services: Hematologic Medical Hx - color buffer Hx of Blood Transfusion Yes 11/25/24 14:20 Hx of Transfusion in last 3 No 11/25/24 14:20 Months Date of Last Transfusion (if within last 3 months) Ever experience any problems No 11/25/24 14:20 with transfusion(s)? Specify any problems Hx of Preganancy in last 3 N/A 11/25/24 14:20 Months Nurse Filling Out Transfusion [email or web address] 11/25/24 14:20 & Questions: Date: 11/25/24 11/25/24 14:20 Time: 14:47 11/25/24 14:20 Patient unable to answer at this time (ie. confused, unrespo /Reproduction History /Reproductive History - director of food and beverage services: /Reproductive Hx- director of food and beverage services Hx Now No 11/28/24 07:24 Gestational Age (in weeks): EDC: Hx Hx Para Hx Section SAB No 11/28/24 07:24 Active Medications Active Medications: Current Medications Generic Name Dose Route Start Last Admin Trade Name Freq PRN Reason Stop Dose Admin Acetaminophen 1,000 mg 11/25/24 16:00 12/06/24 05:53 Acetaminophen 500 Mg Tablet PO 1,000 mg Q8 TAMMIE Administration Albuterol Sulfate 2.5 mg 11/25/24 15:01 Albuterol 2.5 Mg/3 Ml Vial.Neb. INHALATION Q2H PRN PRN SOB &/OR WHEEZING Calamine/Phenol 1 applic 12/03/24 10:00 12/06/24 10:19 Menthol/Lanolin/Calamine/Znox 113 Gm Tube TOPICAL 1 applic BID TAMMIE Administration Protocol Calcium Carbonate 500 mg 11/26/24 08:00 12/06/24 08:31 Calcium (Elemental) 500 Mg Tablet [facility] Calcium Carbonate 500 mg 12/04/24 02:17 Calcium Carbonate 500 Mg Tablet PO Q6H PRN PRN HEARTBURN OR INDIGESTION Celecoxib 100 mg 11/26/24 11:00 12/06/24 10:20 Celecoxib 100 Mg Capsule PO Not Given DAILY TAMMIE Cholecalciferol 25 mcg 11/26/24 10:00 12/06/24 10:21 Cholecalciferol (Vit D3) 25 Mcg Tablet (1,000 Units) PO Not Given DAILY [facility] Docusate Sodium 100 mg 11/25/24 15:01 11/27/24 14:00 Docusate Sodium 100 Mg Capsule PO 100 mg BID PRN PRN Administration Constipation Dorzolamide/Timolol 1 drp 11/25/24 22:00 12/06/24 10:25 Dorzolamide Hcl/Timolol 10 Ml Bottle EACH EYE 1 drp BID TAMMIE Administration Enoxaparin Sodium 40 mg 11/26/24 10:00 12/05/24 09:17 Enoxaparin 40 Mg/0.4 Ml Syringe SC 40 mg DAILY TAMMIE Administration Ferrous Gluconate 324 mg 11/29/24 12:00 12/06/24 12:48 Ferrous Gluconate 324 Mg Tablet PO Not Given TIDCM [facility] Fluticasone Propionate 1 spray 11/26/24 10:00 12/06/24 10:25 Fluticasone 0.05% 1 [place] Nasal.Sry NASAL 1 spray DAILY [facility] Administration Gabapentin 100 mg 11/25/24 15:01 12/06/24 12:48 Gabapentin 100 Mg Capsule PO Not Given TIDCM [facility] Guaifenesin 1,200 mg 11/25/24 22:00 12/06/24 10:21 Guaifenesin 1,200 Mg Tablet PO Not Given BID [facility] Hydrochlorothiazide 12.5 mg 11/26/24 10:00 12/06/24 10:20 Hydrochlorothiazide 12.5mg PO Not Given DAILY [facility] Protocol Hydromorphone HCl 0.5 mg 11/25/24 15:01 12/06/24 00:08 Hydromorphone 0.5 Mg/0.5 Ml Syringe IV 0.5 mg Q3H PRN PRN Administration Pain Score 6-10 or Pre PT/OT Sodium Chloride 100 mls @ 15 mls/hr 11/25/24 14:59 12/01/24 14:51 IV Infused .Q6H40M PRN Infusion Saline Flush Sodium Chloride 100 mls @ 15 mls/hr 11/25/24 14:59 IV .Q6H40M PRN Additional IVPB Infusion Sodium Chloride 1,000 mls @ 15 mls/hr 12/04/24 12:20 12/04/24 21:00 IV 0 mls/hr .Q48H TAMMIE Infusion Sodium Chloride 1,000 mls @ 15 mls/hr 12/04/24 12:40 12/05/24 10:06 IV Not Given .Q48H TAMMIE Meropenem 1 gm/ Sodium 120 mls @ 33 mls/hr 12/05/24 08:00 12/06/24 10:06 Chloride IV Infused Q8 TAMMIE Infusion Lidocaine 1 patch 11/26/24 10:00 12/06/24 10:20 Lidocaine 5% Patch TOPICAL Not Given DAILY [facility] Protocol Magnesium Chloride 128 mg 11/26/24 10:00 12/06/24 10:20 Magnesium Chloride 64 Mg Delay Rel.Tablet PO Not Given DAILY [facility] Melatonin 5 mg 11/25/24 17:51 Melatonin 10 Mg Tablet PO QHS PRN sleep Metoprolol Tartrate 25 mg 11/30/24 22:00 12/06/24 05:53 Metoprolol Tartrate 25 Mg Tablet PO 25 mg TID [facility] Administration Protocol Multivitamins 1 tablet 11/26/24 08:00 12/06/24 08:31 Multivitamins,Therapeutic Tablet PO [facility] Ondansetron HCl 4 mg 11/25/24 15:01 12/05/24 23:00 Ondansetron 4 Mg/2 Ml Vial IV 4 mg Q8H PRN PRN Administration NAUSEA/VOMITING Oxycodone HCl 5 mg 11/25/24 15:01 12/05/24 23:00 Oxycodone 5 Mg Tablet PO 5 mg Q4H PRN PRN Administration Pain Score 4-10 Pantoprazole Sodium 40 mg 11/26/24 10:00 12/06/24 10:21 Pantoprazole Sodium 40 Mg Tablet PO Not Given DAILY [facility] Polyethylene Glycol 17 gm 11/29/24 16:45 12/06/24 10:20 Polyethylene Glycol 3350 17 Gm Packet PO Not Given DAILY TAMMIE Senna/Docusate Sodium 2 tablet 12/06/24 08:10 Senna/Docusate Sodium 1 Tablet PO BID PRN CONSTIPATION Sodium Chloride 10 - 40 ml 11/25/24 14:59 12/06/24 00:09 0.9% Saline Lock 10 Ml Syringe IV 10 ml UD PRN Administration SALINE FLUSH Tizanidine HCl 4 mg 11/25/24 15:01 11/27/24 14:00 Tizanidine Hcl 2 Mg Tablet PO 4 mg Q8H PRN PRN Administration Muscle Spasms/Musculoskeletal Pain PFSH Medical History Hemorrhoids Cancer Arthritis Hypertension GERD (gastroesophageal reflux disease) Constipation BPPV (benign paroxysmal positional vertigo) Compression fracture of L1 lumbar vertebra Home Medications ?Medication ?Instructions ?Recorded ?Last Taken ?Type calcium carbonate (Calcium 600) 600 mg PO DAILY 04/24/22 11/24/24 History calcium carbonate (Tums) 200 mg PO BID PRN dyspepsia 04/24/22 11/23/24 History fluticasone propionate 50 2 spray intranasal DAILY 04/24/22 Unknown History mcg/actuation nasal spray,suspension metoprolol succinate 25 mg 25 mg PO DAILY 04/24/22 11/24/24 History tablet,extended release 24 hr multivitamin 1 tab PO DAILY 04/24/22 11/24/24 History acetaminophen 650 mg 650 mg PO Q8H PRN pain 11/25/24 11/25/24 History tablet,extended release (Arthritis Pain Relief (acetaminophen) ER) baclofen 10 mg tablet 10 mg PO QHS MUSCLE SPASM 11/25/24 11/24/24 History cholecalciferol (vitamin D3) 25 25 mcg PO DAILY 11/25/24 11/24/24 History mcg (1,000 unit) capsule (Vitamin D3) cranberry 500 mg capsule 500 mg PO DAILY 11/25/24 Unknown History dorzolamide 22.3 mg-timolol 6.8 1 drp ophthalmic (eye) BID 11/25/24 Unknown History mg/mL eye drops guaifenesin 600 mg tablet, 600 mg PO BID PRN congestion 11/25/24 Unknown History extended release 12 hr (Mucinex) hydrochlorothiazide 25 mg tablet 25 mg PO DAILY 11/25/24 11/24/24 History ketorolac 0.5 % eye drops 1 drp ophthalmic (eye) TID 11/25/24 11/25/24 History magnesium oxide 400 mg (241.3 mg 400 mg PO DAILY 11/25/24 11/24/24 History magnesium) tablet meclizine 12.5 mg tablet 12.5 mg PO TID PRN dizziness 11/25/24 Unknown History melatonin 5 mg tablet 5 mg PO QHS PRN sleep 11/25/24 Unknown History naproxen 250 mg tablet 250 mg PO BID 11/25/24 11/24/24 History pantoprazole 40 mg tablet,delayed 40 mg PO DAILY 11/25/24 11/24/24 History release prednisone 10 mg tablet See Taper PO .COMPLEX 11/25/24 11/24/24 History Allergy/AdvReac Type Severity Reaction Status Date / Time norfloxacin (From Noroxin) Allergy unknown Verified 11/25/24 09:26 polymyxin B Allergy Swelling Verified 11/25/24 09:26 levofloxacin (From Levaquin) AdvReac Diarrhea Verified 11/25/24 09:26 phenylephrine (From Sudafed AdvReac Other Verified 11/25/24 09:26 PE) Surgical History History of gastric bypass History of hysterectomy Hx of shoulder replacement History of knee replacement Social History Smoking Status: Former smoker Review of Systems (Anesthesia) ROS Narrative System reviewed and no additional complaints, except as documented.
[2024-12-06] MEDS: 0.9% Normal Saline (1000mL) 1,000 ML 15 ML IV (13:45)
[2024-12-06] MEDS: Bupivacaine Mpf 0.5% 30 ML VIAL (15:36)
--- NOTE | 2024-12-06 15:38 | RAD_ITS ---
PROCEDURE: SPINE 1 VIEW ANY LEVEL 12/06/2024 REASON FOR EXAM: L1 FX TECHNIQUE: 2 fluoroscopic images were submitted. Fluoroscopy time was 106 seconds. Peak skin radiation dose was 38.7 mGy. COMPARISON: None FINDINGS: See impression RAD/Spine 1 View Any Level IMPRESSION: Kyphoplasty performed at the L1 compression fracture. See operative report for further details. Reading Location: [facility]
--- NOTE | 2024-12-06 16:32 | PCM.POST.ANE ---
Anesthesia: Postop Eval I Current Vital Signs Temperature: 97.5 F Pulse Rate: 67 Blood Pressure: 125/74 Respiratory Rate: 18 Pulse Ox: 95 Assessment Airway patent: Yes Spontaneous unlabored respirations: Yes nausea: No Vomiting: No Anesthesia Complication: No Fluid Hydration Crystalloid volume administer (ml): 1,500 Total IV fluid infused: 1,500 Progress Note Anesthesia document: Postop Eval 1 completed: Yes
--- NOTE | 2024-12-06 17:08 | PCM.OPRPT ---
Problems Associated Problem List Diagnoses (1) Collapse of lumbar vertebra: (2) Age-related osteoporosis with current pathological fracture, unspecified site, initial encounter for fracture: (3) Disease of bone and joint: Operative Report (Standard) Operative Information Date of Procedure: 12/06/24 Pre-Operative Diagnosis: L1 compression fracture Post-Operative Diagnosis: L1 compression fracture Surgery/Procedure Performed: L1 kyphoplasty attending radiologist: No Type of Anesthesia: General RN Documented Start/Stop Times: Operation Date: 12/06/24 14:30 Case Time Into Pre-Op 12/06/24 13:31 Anesthesia Start 12/06/24 14:59 Into Room 12/06/24 14:59 Procedure Start 12/06/24 15:36 Procedure End 12/06/24 16:10 Anesthesia End 12/06/24 16:23 Out of Room 12/06/24 16:23 Into Recovery 12/06/24 16:25 Out of Pre-Op Procedure Start Time: 15:36 Procedure Stop Time: 16:10 Select all DRAINS/GRAFTS/IMPLANTS that apply: None Estimated Blood Loss: nil Specimen collected: No Description of surgery: Informed consent was obtained prior to the procedure. The risks, benefits, and alternatives were discussed in detail, and the patient expressed understanding and agreed to proceed. The patient was positioned in the prone position on the fluoroscopy table. Standard monitors were applied.. Vitals were closely monitored throughout the procedure to ensure patient safety and stability. Conscious sedation was used to maintain comfort, but the patient was conversant throughout. The skin overlying the L1 vertebra and surrounding area was sterilized with duraprep and draped in a sterile fashion. Anesthesia was administered with 0.25% Bupivocaine injected at the procedural site to ensure local numbness and comfort. Standard monitors were applied, and conscious sedation was used. Vitals were closely monitored throughout the procedure to ensure patient safety and stability. A left sided unipedicular approach was used to access the L1 vertebra. Under fluoroscopic guidance, the trochar was introduced through the pedicle and advanced into the vertebral body. The introducer was then advanced through the trochar (curved) under AP and lateral fluoroscopic guidance as needed. A sheath was then advanced into place and the curved introducer removed. The balloon was then inserted under fluoroscopy. It was inflated to a maximum pressure of 200 PSI, allowing for partial alevism of vertebral height without compromising vertebral wall integrity. After optimal inflation was achieved, the balloons were deflated and removed, creating a cavity for cement injection. Cement was prepared and injected under fluoroscopic guidance, with 3 cc injected. Flow was monitored closely, and real-time fluoroscopy confirmed even cement distribution within the vertebral body without extravasation. The trochar were removed, and the access site was bandaged. Hemostasis was achieved, and sterile dressings were applied. No cement was noted to leak back after removal of the trochars. No complications were encountered during the procedure. Patient was seen in pacu. Moving extremities without significant back pain limitation. Surgical Findings: n/a Complications Complications: No
--- NOTE | 2024-12-06 17:32 | POSTOPAN2_ITS ---
Anesthesia Postop Eval I Sum Postop Eval Completion status Anesthesia document: Postop Eval 1 completed: Yes Anesthesia Postop Eval I Summary Anesthesia Postop Eval I Summary: Anesthesia Postop Eval I: Assessment Summary Airway patent Yes 12/06/24 16:32 [email or web address] Spontaneous unlabored Yes 12/06/24 16:32 [email or web address] respirations Mental status Awake 11/29/24 16:13 nausea No 12/06/24 16:32 [email or web address] Vomiting No 12/06/24 16:32 [email or web address] Anesthesia Postop Eval I: Fluid Summary Crystalloid volume administer 1,500 12/06/24 16:32 [email or web address] (ml) Colloids volume administered ( ml) Blood Product volume administered (ml) Total IV fluid infused 1,500 12/06/24 16:32 [email or web address] Anesthesia Postop Eval I: Summary Notes Anesthesia Complication No 12/06/24 16:32 [email or web address] Anesthesia Complication Comment: Post-operative progress note Anesthesia: Postop Eval II Evaluation Mental status: Awake Pain Level: 2 nausea: No Vomiting: No
--- NOTE | 2024-12-06 17:32 | PCM.POSTANE2 ---
Anesthesia Postop Eval I Sum Postop Eval Completion status Anesthesia document: Postop Eval 1 completed: Yes Anesthesia Postop Eval I Summary Anesthesia Postop Eval I Summary: Anesthesia Postop Eval I: Assessment Summary Airway patent Yes 12/06/24 16:32 [email or web address] Spontaneous unlabored Yes 12/06/24 16:32 [email or web address] respirations Mental status Awake 11/29/24 16:13 nausea No 12/06/24 16:32 [email or web address] Vomiting No 12/06/24 16:32 [email or web address] Anesthesia Postop Eval I: Fluid Summary Crystalloid volume administer 1,500 12/06/24 16:32 [email or web address] (ml) Colloids volume administered ( ml) Blood Product volume administered (ml) Total IV fluid infused 1,500 12/06/24 16:32 [email or web address] Anesthesia Postop Eval I: Summary Notes Anesthesia Complication No 12/06/24 16:32 [email or web address] Anesthesia Complication Comment: Post-operative progress note Anesthesia: Postop Eval II Evaluation Mental status: Awake Pain Level: 2 nausea: No Vomiting: No
--- NOTE | 2024-12-06 17:32 | ANES.CONF2 ---
Anesthesia: Confirm Documents Multiple Procedures on Account (3) Confirmed Documents: Yes
[2024-12-06] MEDS: Ondansetron 4 MG/2 ML Vial IV (22:00)
[2024-12-06] MEDS: MELATONIN 10 MG TABLET 5 MG PO (22:00)
[2024-12-07 02:07] VITALS: BP 113/54; PULSE 68; RESP 16; TEMP 36.6; O2SAT 99
[2024-12-07 05:35] VITALS: BP 136/65; PULSE 72; RESP 16; TEMP 36.6; O2SAT 98
[2024-12-07 05:43] VITALS: BP 136/65; PULSE 72
[2024-12-07] MEDS: Metoprolol Tartrate 25 MG Tablet PO ×2 (05:43→14:03)
[2024-12-07] MEDS: Meropenem 1 GM in 0.9% Normal Saline (100mL MB+) 100 ML IV (05:43)
[2024-12-07] MEDS: Acetaminophen 500 MG Tablet 1000 MG PO ×2 (05:44→14:03)
[2024-12-07] MEDS: Ondansetron 4 MG/2 ML Vial IV (05:45)
[2024-12-07 09:15] VITALS: BP 126/52; PULSE 66; RESP 18; TEMP 36.4; O2SAT 100
[2024-12-07] MEDS: Lidocaine 5% Patch 1 PATCH TOPICAL (09:24)
[2024-12-07] MEDS: Pantoprazole Sodium 40 MG Tablet PO (09:24)
[2024-12-07] MEDS: Dorzolamide HCL/Timolol 10 ml Bottle 1 DRP EACH EYE (09:24)
[2024-12-07] MEDS: Enoxaparin 40 MG/0.4 ML Syringe SC (09:24)
[2024-12-07] MEDS: hydroCHLOROthiazide 12.5mg 12.5 MG PO (09:24)
[2024-12-07] MEDS: Magnesium Chloride 64 MG Delay Rel.Tablet 128 MG PO (09:25)
[2024-12-07] MEDS: Fluticasone 0.05% 1 SPRAY NASAL.SRY NASAL (09:25)
[2024-12-07] MEDS: Ferrous Gluconate 324 MG Tablet PO ×2 (09:25→14:03)
[2024-12-07] MEDS: Menthol/Lanolin/Calamine/Znox 113 GM Tube 1 APPLIC TOPICAL (09:25)
--- NOTE | 2024-12-07 13:25 | CASEMGMT ---
Addendum entered by Ju Cutler 12/07/24 15:01: Received tc back from [facility], they have accepted pt for care to start on Wednesday as long as pt sees first. She has made an appt for tomorrow at 1030am. LOUISA GOYAL into pt room, pt aware of this. She is working on finding someone to take her to the appt. She is aware that she will need to cancel the appt if she cannot obtain transportation. Offered to change appt for pt and she declined. Pt denies further needs. Original Note: LOUISA GOYAL into pt room, pt states she is ready to go home. Pt is agreeable to [facility]. Discussed SN, PT and OT, pt agreeable and requests this. Patient was provided a list of [facility] providers including quality and resource use data and consistent with the patient?s preferred geographic region, medical needs, and insurance network were provided from the [employer] Guide. Pt would like [facility] and states otherwise has no preference. Pt denies any further homegoing needs stating that her family will be able to assist her. TC to [facility], referral left via .
--- NOTE | 2024-12-07 13:58 | DS.PCM_ITS ---
Providers Date of Admission: 12/02/24 Date of Discharge: 12/07/24 Primary Care Physician: Dr. Leandro Lua MD Consultations 11/26/24 10:17 Consult: Pain Management Routine Consulting Provider: Eleonora Sharp Reason for Consult: pain Lumbar-compression fx EMERGENT Consult: No Notified: Yes Date Notified: 11/27/24 Time Notified: 08:14 Method of Notification: Answering Service 12/05/24 07:58 Consult: Infectious Disease Routine Consulting Provider: Nestor Amado Reason for Consult: ESBL UTI EMERGENT Consult: No Notified: Yes Date Notified: 12/05/24 Time Notified: 08:00 Method of Notification: Text Reason For Visit: LOW BACK PAIN Diagnosis Discharge Diagnosis (1) Collapse of lumbar vertebra: Status: Acute Code(s): M48.56XA - Collapsed vertebra, not elsewhere classified, lumbar region, initial encounter for fracture Qualifiers: Encounter type: initial encounter Qualified Code(s): M48.56XA - Collapsed vertebra, not elsewhere classified, lumbar region, initial encounter for fracture (2) Age-related osteoporosis with current pathological fracture, unspecified site, initial encounter for fracture: Status: Acute Code(s): M80.00XA - Age-related osteoporosis with current pathological fracture, unspecified site, initial encounter for fracture (3) Disease of bone and joint: Status: Acute Code(s): M89.9 - Disorder of bone, unspecified; M25.9 - Joint disorder, unspecified Medications at Discharge Home Medications calcium carbonate (Calcium 600) 600 mg PO DAILY 04/24/22 calcium carbonate (Tums) 200 mg PO BID PRN dyspepsia 04/24/22 fluticasone propionate 50 mcg/actuation nasal spray,suspension 2 spray intranasal DAILY 04/24/22 multivitamin 1 tab PO DAILY 04/24/22 acetaminophen 650 mg tablet,extended release (Arthritis Pain Relief (acetaminophen) ER) 650 mg PO Q8H PRN pain 11/25/24 Held on 12/07/24. Instructions: Until done taking 1000 mg 3 times daily cholecalciferol (vitamin D3) 25 mcg (1,000 unit) capsule (Vitamin D3) 25 mcg PO DAILY 11/25/24 cranberry 500 mg capsule 500 mg PO DAILY 11/25/24 dorzolamide 22.3 mg-timolol 6.8 mg/mL eye drops 1 drp ophthalmic (eye) BID 11/25/24 guaifenesin 600 mg tablet, extended release 12 hr (Mucinex) 600 mg PO BID PRN congestion 11/25/24 ketorolac 0.5 % eye drops 1 drp ophthalmic (eye) TID 11/25/24 magnesium oxide 400 mg (241.3 mg magnesium) tablet 400 mg PO DAILY 11/25/24 meclizine 12.5 mg tablet 12.5 mg PO TID PRN dizziness 11/25/24 melatonin 5 mg tablet 5 mg PO QHS PRN sleep 11/25/24 pantoprazole 40 mg tablet,delayed release 40 mg PO DAILY 11/25/24 acetaminophen 500 mg tablet 1,000 mg (2 x 500 mg) PO Q8 #0 tabs 12/07/24 baclofen 10 mg tablet 10 mg PO QHS MUSCLE SPASM #1 TAB 12/07/24 hydrochlorothiazide 12.5 mg capsule 12.5 mg PO DAILY #30 caps 12/07/24 lidocaine 5 % topical patch 1 patch topical DAILY #15 ea 12/07/24 loperamide 2 mg capsule 2 mg PO Q4H PRN PRN Diarrhea/Loose Stools #0 caps 12/07/24 metoprolol tartrate 25 mg tablet 25 mg PO TID #90 tabs 12/07/24 ondansetron 4 mg disintegrating tablet 4 mg PO Q8H PRN nausea and vomiting #9 tabs 12/07/24 sulfamethoxazole 800 mg-trimethoprim 160 mg tablet (Bactrim DS) 1 tab PO BID #4 tabs 12/07/24 Hospital Course Procedures EKG and - (CT lumbar spine/MRI thoracic and lumbar spine) Summary of Care Provided Minutes Spent on Discharge: 40 Hospital Course: TORSTEN COLINDRES, is a 84 F who presented to the emergency department at [facility] on 11/25/2024 with a chief complaint of intractable back pain. Patient reported on presentation she has had intermittent low back pain since about 8 years ago when she sustained compression fractures at T12 and L1. About a week ago she was doing some housekeeping and lifting shoe boxes of paint supplies out of the schwartz closet at which time she developed increasing low back pain on the right side. She saw her primary care doctor about 4 days ago and was given an IM shot of a muscle relaxer, anti-inflammatory and was prescribed prednisone, Ultram, and a muscle relaxant to take at bedtime. She was also taking Tylenol 650 mg 3 times a day. It was helping until about 2 days ago when she had an ophthalmology procedure and was moving around for procedure done at the office and she developed worsening low back pain. At baseline she has been utilizing a walker but having more difficulty with her ADLs and IADLs. She lives alone at baseline. Her granddaughter helps her and recently has had such severe pain that her granddaughter has had to move her legs in and out of the car. She denied any lower extremity weakness. She denied any changes in bladder or bowel function. She has no saddle anesthesia. Vital signs on presentation showed temperature of 98.9, heart rate 66, respiratory 18, blood pressure was 149/66 and pulse ox was 97% on room air. CBC shows a microcytic anemia that appears to be chronic and stable. Chemistry panel was unremarkable. UA is pending. Lumbar spine x-rays show advanced degenerative changes but no acute abnormalities. 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 CT of the lumbar spine shows stable findings as previously observed on previous imaging. She was admitted to medical floor and placed on multiple modal agents for pain control. Unfortunately her pain was persistent so we did need to consult pain management. An MRI of the lumbar and thoracic spine were performed and demonstrated acute/subacute mild compression fracture of the inferior aspect of the L1 vertebral body without retropulsion and spinal canal and chronic moderate wedge compression fracture of T12 without retropulsion into the spinal canal with mild levoscoliosis and degenerative disc changes. It was felt that she would benefit from kyphoplasty which was originally scheduled for late last week however the patient developed SVT and the case was canceled. She was placed on beta-kaylie and SVT resolved quickly and maintain resolved throughout her entire hospital course. She was discharged with a change in her metoprolol from 25 mg extended release daily to 25 mg 3 times daily. The case was rescheduled for 12/04/2024 however the patient developed dysuria on 12/03/2024 and a urine culture was sent as her UA was suggestive of infection. She was started on antibiotics when her UA was suggestive infection and culture was sent. Culture grew ESBL E. coli. Initial antibiotics were Zosyn and she was transition to meropenem which she received 3 days prior to discharge. Infectious disease was consulted due to the nature of the ESBL producing organism and they recommended 2 more days of Bactrim at the time of discharge with discontinuation of her NSAID which was the plan anyway. She was able to be taken for her kyphoplasty of L1 on 12/06/2024 at which time good success with regards to pain control. The patient was able to be discharged on 12/07/2024. She did have some diarrhea that was induced from her antibiotics and she was sent home with as needed Imodium. For pain she will continue Tylenol and was given lidocaine patches. We are trying to avoid opiates and she is not requiring any opiates for pain relief in the 24 hours prior to discharge. Prescriptions for the lidocaine patch and Bactrim were given and she was recommended to buy [id number] Tylenol and Imodium for ongoing management of her diarrhea and pain. She will follow-up with Dr. Ramirez within the next 1 to 2 weeks and have asked that she follow-up with her primary care physician within the next week. Prescriptions were sent to her local pharmacy was discharged home in stable condition on 12/07/2024. She was followed by physical Occupational Therapy during her hospital stay and required no ongoing therapy at the time of discharge. Discharge diagnoses: Intractable low back pain secondary to acute L1 lumbar compression fracture Chronic T12 compression fracture Osteoporosis ESBL E. coli UTI SVT-resolved Constipation Diarrhea Chronic microcytic anemia Lower extremity edema History of BPPV Insomnia Essential hypertension History of vitamin D deficiency GERD Seasonal allergies Physical Exam Narrative Patient states she is feeling much better. She is able to move and the kyphoplasty worked well. Her only concern is her diarrhea. She states she always gets loose stools when she is on antibiotics. Const alert, oriented x3, no apparent distress, no limitations, healthy appearing and well nourished; Negative for average body habitus Constitutional Narrative: Obese, pleasant, elderly, white female, sitting up at the bedside in chair, watching television and eating breakfast, appears comfortable, nontoxic General Appearance: cooperative, comfortable, well kempt and well developed Exam Limitations: no limitations Nutritional Appearance: obese HEENT normocephalic, head/scalp atraumatic and hearing grossly normal bilaterally Eyes EOMs intact bilaterally Eyes Narrative: No scleral icterus Neck supple Neck Narrative: Trachea midline Resp normal respiratory effort, no retractions, no use of accessory muscles and clear to auscultation bilaterally Auscultation: Negative for rales, rhonchi or wheezes Cardio regular rate, regular rhythm, S1 normal heart sound, S2 normal heart sound, no murmurs, no rub, no gallops and no clicks GI normal to inspection, nondistended, normoactive bowel sounds, soft to palpation and non-tender Extremity no clubbing, cyanosis or edema Skin skin turgor normal, no jaundice, no petechiae and no mottling Neuro oriented x3, moves all extremities and no focal motor deficits Neuro Narrative: Improve mobility, patient is out of bed and in chair at the bedside Speech: speech normal Psych affect normal Psych Narrative: Very pleasant, talkative, interacts appropriately Weight / BMI Weight Weight: 94.846 kg Body Mass Index (BMI) 34.7 ABG / Lab / Microbiology Data 12/06/24 04:57 12/06/24 04:57 Microbiology: Microbiology 12/03/24 21:40 Urine, Clean Catch Urine Culture - Final ESBL Escherichia coli Radiography Diagnostic Testing: Radiology Impression Spine X-Ray 12/06/24 15:38 IMPRESSION: Kyphoplasty performed at the L1 compression fracture. See operative report for further details. Reading Location: [facility] Instructions Discharge Diet: Low fat / Low cholesterol Discharge Activity: Use Walker and - (Avoid bending forward until cleared by pain management ) DC O2, CPAP, BIPAP Needs Home O2 Discharge instructions: No Meaningful Use Info Meaningful Use Meaningful Use Diagnoses (Choose all that apply): None applicable Ischemic Stroke Statin Dosing Therapy Reference: STATIN DOSE THERAPY REFERENCE: * Patients > 75 years receive moderate or high dose statin therapy. * Patients 75 years or YOUNGER should receive HIGH intensity statin dose unless contraindicated. You will be required to document reason for non-treatment if statin daily dose does not meet guidelines. HIGH DOSE STATIN THERAPY DAILY Atorvastatin > than or = to 40 mg Rosuvastatin > than or = to 20 mg Amlodipine + Atorvastatin > than or = to 2.5/40 mg Ezetimibe + Simvastatin 10/80 mg Simvastatin 80mg Discharge Plan Admission Admit Date/Time: 12/02/24 11:50 Primary Reason for Your Visit: Intractable back pain Attending Provider: Tonya Cortez Primary Care Provider: Leandro Lua Chi Consulting Providers: Tonya Cortez; Eleonora Sharp; Haile Davis; Nestor Amado Instructions Additional Instructions / Restrictions: 1. please call your primary care physician and ask that a basic metabolic profile be drawn on Wednesday to check your kidney function while you are on the Bactrim Discharge Orders/Prescriptions Prescriptions: New acetaminophen 500 mg Tablet 1,000 mg PO Q8 Qty: 0 0RF lidocaine 5 % Adhesive Patch,Medicated 1 patch topical DAILY Qty: 15 0RF Protocol: *Topical Application Instructions APPLICATION INSTRUCTIONS: Back hydrochlorothiazide 12.5 mg Capsule 12.5 mg PO DAILY Qty: 30 2RF loperamide 2 mg Capsule 2 mg PO Q4H PRN PRN (Reason: Diarrhea/Loose Stools) Qty: 0 0RF metoprolol tartrate 25 mg Tablet 25 mg PO TID Qty: 90 2RF sulfamethoxazole-trimethoprim [Bactrim DS] 800-160 mg tablet 1 tab PO BID Qty: 4 0RF ondansetron 4 mg tablet,disintegrating 4 mg PO Q8H PRN (Reason: nausea and vomiting) Qty: 9 0RF Continued multivitamin Tablet 1 tab PO DAILY fluticasone propionate 50 mcg/actuation spray,suspension 2 spray intranasal DAILY Rx Instructions: administer into each nostril calcium carbonate [Tums] 200 mg calcium (500 mg) tablet,chewable 200 mg PO BID PRN (Reason: dyspepsia) calcium carbonate [Calcium 600] 600 mg calcium (1,500 mg) tablet 600 mg PO DAILY magnesium oxide 400 mg (241.3 mg magnesium) tablet 400 mg PO DAILY ketorolac 0.5 % drops 1 drp ophthalmic (eye) TID Rx Instructions: INSTILL 1 DROP IN THE RIGHT EYE THREE TIMES DAILY FOR 5 DAYS then stop dorzolamide-timolol 22.3-6.8 mg/mL drops 1 drp ophthalmic (eye) BID pantoprazole 40 mg tablet,delayed release (DR/EC) 40 mg PO DAILY cholecalciferol (vitamin D3) [Vitamin D3] 25 mcg (1,000 unit) capsule 25 mcg PO DAILY guaifenesin [Mucinex] 600 mg tablet extended release 12hr 600 mg PO BID PRN (Reason: congestion) melatonin 5 mg tablet 5 mg PO QHS PRN (Reason: sleep) Patient Comments: PT HAS NOT BEEN TAKING SINCE SHE HAS BEEN ON BACLOFEN. cranberry 500 mg capsule 500 mg PO DAILY Rx Instructions: administer with a meal meclizine 12.5 MG tablet 12.5 mg PO TID PRN (Reason: dizziness) baclofen 10 mg tablet 10 mg PO QHS Qty: 1 0RF Rx Instructions: Only take as needed Held acetaminophen [Arthritis Pain Relief (acetam)] 650 mg tablet extended release 650 mg PO Q8H PRN (Reason: pain) Hold Instructions: Until done taking 1000 mg 3 times daily Discontinued metoprolol succinate 25 mg tablet extended release 24 hr 25 mg PO DAILY hydrochlorothiazide 25 mg tablet 25 mg PO DAILY naproxen 250 mg tablet 250 mg PO BID prednisone 10 mg tablet See Taper PO .COMPLEX Taper: Prednisone Taper 30 mg WITH BREAKFAST for 2 Days 20 mg WITH BREAKFAST for 2 Days 10 mg WITH BREAKFAST for 2 Days Rx Instructions: orally SEE TAPER; Referrals / Follow Up: Haile Ramirez MD [Med Staff - Active Staff] - Within 1 Week (Please call tomorrow to set up an appointment) Leandro Lua Chi, MD [Primary Care Provider] - Within 2 Weeks Disposition Disposition (needs filled in before D/C Order can be placed): Home, Self Care Charges/Coding Visit Charges Inpatient E&M: 54997 Disch Hosp >30min
[2024-12-07 14:00] VITALS: BP 136/55; PULSE 78; RESP 18; TEMP 36.9; O2SAT 94
[2024-12-07 14:03] VITALS: PULSE 78
== END 2024-12-07 17:35 | disposition home or self-care (01) | DRG 516 ==
LOC: ED 11:19 → MS3 12:54
PROVIDERS: Anesthesiology; Family Medicine; Physician Assistant; Admitting Provider Internal Medicine; Emergency Provider Emergency Medicine; PCP Family Medicine Geriatric Medicine; Visit Provider Internal Medicine
PROC: 0QS03ZZ Reposition Lumbar Vertebra, Percutaneous Approach (ICD-10-PCS; principal; 2024-12-06 14:15)
DX: M80.08XA Age-related osteoporosis with current pathological fracture, vertebra(e), initial encounter for fracture (principal); I47.10 Supraventricular tachycardia, unspecified; N39.0 Urinary tract infection, site not specified; Z16.12 Extended spectrum beta lactamase (ESBL) resistance; Z66 Do not resuscitate; D50.9 Iron deficiency anemia, unspecified; I10 Essential (primary) hypertension; K21.9 Gastro-esophageal reflux disease without esophagitis; J30.2 Other seasonal allergic rhinitis; I87.8 Other specified disorders of veins; K59.00 Constipation, unspecified; H81.10 Benign paroxysmal vertigo, unspecified ear; M51.360 Other intervertebral disc degeneration, lumbar region with discogenic back pain only; Z87.891 Personal history of nicotine dependence; Z90.710 Acquired absence of both cervix and uterus; Z60.2 Problems related to living alone; Z79.1 Long term (current) use of non-steroidal anti-inflammatories (NSAID); B96.20 Unspecified Escherichia coli [E. coli] as the cause of diseases classified elsewhere; Z79.899 Other long term (current) drug therapy; Z79.891 Long term (current) use of opiate analgesic; Z88.8 Allergy status to other drugs, medicaments and biological substances; M89.9 Disorder of bone, unspecified; Z99.89 Dependence on other enabling machines and devices; G47.00 Insomnia, unspecified
CPT/HCPCS: 36415; 72020; 72100; 72131; 72146; 72148; 76000; 80048; 80053; 81001; 82728; 83540; 83550; 83735; 83880; 84100; 84443; 85025; 85027; 87077; 87086; 87088; 87186; 93005; 93970; 94668; 97110; 97112; 97116; 97162; 97165; 97530; 97535; 99284; C1713; J2185; A4216; J2405; J2916

== ENCOUNTER → 2024-12-13 | Outpatient (CLI) | payer MEDICARE, SELFPAY ==
--- NOTE | 2024-12-13 17:05 | RAD_ITS ---
PROCEDURE: CHEST PA AND LATERAL 12/13/2024 REASON FOR EXAM: SOB TECHNIQUE: Frontal and lateral views of the chest. COMPARISON: Chest x-ray study dated 01/14/2024 FINDINGS: Hardware: Radiopaque right shoulder hardware is noted. The visualized portions appear to be in satisfactory position. Surgical clips are projected over the abdomen. A radiopaque density is projected over the lower thoracic spine which may be due to prior vertebroplasty. Clinical correlation is recommended. Heart: Heart size and configuration are within normal limits. Mediastinum: Pulmonary vasculature and hilar structures are unremarkable. Arteriosclerotic vascular disease of the aorta is noted. Trachea is midline. Lungs: There are linear density seen in the lung bases which are compatible with parenchymal scars and are similar when compared to the prior study. There was no atelectasis, consolidation, effusion or pneumonic infiltrate. Bones: Diffuse osteopenia of the bony thorax is seen. There is an S shaped scoliotic curvature of the spine. There is increased kyphotic curvature of the thoracolumbar junction. There has been previous vertebroplasty of what appears to be the T12 vertebral body. Clinical correlation is recommended. There is a decrease in height of what appears to be the T11 vertebral body. This is probably related to an osteoporotic compression fracture. This is worse when compared to the prior exam. Arthritic changes are seen involving the acromioclavicular joints bilaterally. RAD/Chest PA and Lateral IMPRESSION: No acute cardiopulmonary process is identified radiographically. Parenchymal scarring lung bases Arteriosclerotic vascular disease of the aorta. Diffuse osteopenia bony thorax. There is a decrease in height of the T11 and T12 vertebral bodies. These are p robably related to osteoporotic compression fractures. MRI may be of value if clinically warranted. Reading Location: [id number]
[2024-12-13 17:33] LABS: Absolute Lymphocyte Count 1.18 X10^3/uL (0.83-4.51); Absolute Neutrophil Count 5.6 X10^3/uL (2.0-7.7); Basophil# 0.04 X10^3/uL; Basophil% 0.5 % (0-1); Eosinophil# 0.14 X10^3/uL; Eosinophils% 1.8 % (0-5); Hematocrit 36.2 % (37-47); Hemoglobin 11.2 g/dL (12.0-15.0); Lymphocyte # 1.18 X10^3/ul (0.83-4.51); Lymphocyte % 15.5 % (19-41); Mean Corp Hgb Conc 30.9 g/dL (32-36); Mean Corpuscular Hgb 25.5 pg (27.0-32.0); Mean Corpuscular Volume 82.5 fL (81-99); Monocyte# 0.54 X10^3/uL; Monocyte% 7.1 % (0-10); NRBC Flagged by Analyzer 0 % (0-5); Neutrophil # 5.64 X10^3/uL (2.7-7.7); Neutrophil % 74.2 % (47-70); Platelet Count 313 K/mm3 (150-450); RBC Distribution Width CV 19.5 % (11.6-14.6); Red Blood Count 4.39 M/mm3 (4.2-5.4); White Blood Count 7.6 K/mm3 (4.4-11.0)
[2024-12-13 18:06] LABS: ALB/GLOB Ratio 1.5 RATIO (0.9-2.4); AST(SGOT) 20 U/L (<=31); Alanine Aminotransfer ALT/SGPT 13 U/L (<=34); Alkaline Phosphatase 97 U/L (35-104); Anion Gap 13 (5-15); BUN 19 mg/dL (4-19); BUN/Creat Ratio 40.2 RATIO (10-20); Calcium,Total 9.4 mg/dL (7.6-11.0); Carbon Dioxide 25.1 mmol/L (21.0-32.0); Chloride 100 mmol/L (98-108); Creatinine, Serum 0.47 mg/dL (0.70-1.20); EST Glomerular Filtration Rate 94 (>60); Globulin 2.6 g/dL (2.2-4.2); Glucose 110 mg/dL (70-99); Potassium 3.6 mmol/L (3.3-5.1); Pro- Brain NATRIURETIC PEPTIDE 296 pg/mL (<=1800); Protein, Total 6.5 g/dL (5.9-8.4); Sodium Level 138 mmol/L (133-145); Total Bilirubin 0.45 mg/dL (0.00-1.30)
== END | disposition home or self-care (01) ==
LOC: RAD 16:57
PROVIDERS: PCP Family Medicine Geriatric Medicine; Referring Provider Family Medicine Geriatric Medicine; Visit Provider Family Medicine Geriatric Medicine
DX: R06.02 Shortness of breath (principal); I50.9 Heart failure, unspecified
CPT/HCPCS: 71046; 80053; 83880; 85025

== ENCOUNTER → 2024-12-20 | Outpatient (CLI) | payer MEDICARE, SELFPAY ==
[2024-12-20 17:13] LABS: Absolute Lymphocyte Count 1.19 X10^3/uL (0.83-4.51); Absolute Neutrophil Count 3.8 X10^3/uL (2.0-7.7); Basophil# 0.04 X10^3/uL; Basophil% 0.7 % (0-1); Eosinophil# 0.14 X10^3/uL; Eosinophils% 2.4 % (0-5); Hemoglobin 11.5 g/dL (12.0-15.0); Lymphocyte # 1.19 X10^3/ul (0.83-4.51); Lymphocyte % 20.7 % (19-41); Mean Corp Hgb Conc 31.9 g/dL (32-36); Mean Corpuscular Hgb 26.1 pg (27.0-32.0); Mean Corpuscular Volume 81.6 fL (81-99); Mean Platelet Vol. 9.6 fl (6.2-12.0); Monocyte# 0.56 X10^3/uL; Monocyte% 9.7 % (0-10); NRBC Flagged by Analyzer 0 % (0-5); Neutrophil # 3.78 X10^3/uL (2.7-7.7); Neutrophil % 65.8 % (47-70); Platelet Count 272 K/mm3 (150-450); RBC Distribution Width SD 58.3 fl (35.1-43.9); Red Blood Count 4.41 M/mm3 (4.2-5.4); White Blood Count 5.8 K/mm3 (4.4-11.0)
[2024-12-20 18:08] LABS: Anion Gap 13 (5-15); BUN 15 mg/dL (4-19); BUN/Creat Ratio 30.5 RATIO (10-20); Calcium,Total 9.3 mg/dL (7.6-11.0); Carbon Dioxide 26.1 mmol/L (21.0-32.0); Chloride 94 mmol/L (98-108); EST Glomerular Filtration Rate 92 (>60); Glucose 114 mg/dL (70-99); Potassium 3.9 mmol/L (3.3-5.1); Sodium Level 132 mmol/L (133-145)
== END | disposition home or self-care (01) ==
LOC: LAB 17:00
PROVIDERS: PCP Family Medicine Geriatric Medicine; Referring Provider Family Medicine Geriatric Medicine; Visit Provider Family Medicine Geriatric Medicine
DX: I10 Essential (primary) hypertension (principal)
CPT/HCPCS: 36415; 80048; 85025

== ENCOUNTER → 2024-12-28 | Outpatient (CLI) | payer MEDICARE, SELFPAY ==
[2024-12-28 17:57] LABS: Anion Gap 13 (5-15); BUN 21 mg/dL (4-19); BUN/Creat Ratio 44.7 RATIO (10-20); Calcium,Total 9.4 mg/dL (7.6-11.0); Carbon Dioxide 27.1 mmol/L (21.0-32.0); Chloride 97 mmol/L (98-108); Creatinine, Serum 0.46 mg/dL (0.70-1.20); EST Glomerular Filtration Rate 94 (>60); Glucose 118 mg/dL (70-99); Potassium 3.9 mmol/L (3.3-5.1); Sodium Level 137 mmol/L (133-145)
== END | disposition home or self-care (01) ==
PROVIDERS: PCP Family Medicine Geriatric Medicine; Referring Provider Family Medicine Geriatric Medicine; Visit Provider Family Medicine Geriatric Medicine
DX: I10 Essential (primary) hypertension (principal)
CPT/HCPCS: 36415; 80048

== ENCOUNTER → 2025-01-10 | Outpatient (CLI) | payer MEDICARE, SELFPAY ==
[2025-01-10 17:46] LABS: Absolute Lymphocyte Count 1.23 X10^3/uL (0.83-4.51); Absolute Neutrophil Count 5.4 X10^3/uL (2.0-7.7); Basophil# 0.04 X10^3/uL; Basophil% 0.5 % (0-1); Eosinophil# 0.11 X10^3/uL; Eosinophils% 1.5 % (0-5); Hematocrit 34.1 % (37-47); Hemoglobin 10.5 g/dL (12.0-15.0); Lymphocyte # 1.23 X10^3/ul (0.83-4.51); Lymphocyte % 16.5 % (19-41); Mean Corp Hgb Conc 30.8 g/dL (32-36); Mean Corpuscular Hgb 26.9 pg (27.0-32.0); Mean Corpuscular Volume 87.2 fL (81-99); Mean Platelet Vol. 9.5 fl (6.2-12.0); Monocyte# 0.58 X10^3/uL; Monocyte% 7.8 % (0-10); NRBC Flagged by Analyzer 0 % (0-5); Neutrophil # 5.44 X10^3/uL (2.7-7.7); Neutrophil % 72.8 % (47-70); POSITIVE MORPHOLOGY YES; Platelet Count 255 K/mm3 (150-450); RBC Distribution Width CV 22.1 % (11.6-14.6); RBC Distribution Width SD 68.9 fl (35.1-43.9); Red Blood Count 3.91 M/mm3 (4.2-5.4); White Blood Count 7.5 K/mm3 (4.4-11.0)
[2025-01-10 18:26] LABS: Anion Gap 12 (5-15); BUN 20 mg/dL (4-19); BUN/Creat Ratio 40.7 RATIO (10-20); Calcium,Total 8.9 mg/dL (7.6-11.0); Carbon Dioxide 23.3 mmol/L (21.0-32.0); Chloride 105 mmol/L (98-108); Creatinine, Serum 0.48 mg/dL (0.70-1.20); EST Glomerular Filtration Rate 93 (>60); Glucose 114 mg/dL (70-99); Potassium 3.9 mmol/L (3.3-5.1); Sodium Level 140 mmol/L (133-145)
[2025-01-10 22:23] LABS: Differential Indicated SCAN CRITERIA MET
[2025-01-10 22:27] LABS: Differential Comment SCANNED; Platelet Estimate ADEQUATE (ADEQ)
[2025-01-10 22:28] LABS: Anisocytosis 2+
== END | disposition home or self-care (01) ==
PROVIDERS: PCP Family Medicine Geriatric Medicine; Referring Provider Family Medicine Geriatric Medicine; Visit Provider Family Medicine Geriatric Medicine
DX: I50.9 Heart failure, unspecified (principal)
CPT/HCPCS: 80048; 85025

== ENCOUNTER → 2025-01-17 | Outpatient (CLI) | payer MEDICARE, SELFPAY ==
[2025-01-17 17:18] LABS: Absolute Lymphocyte Count 1.08 X10^3/uL (0.83-4.51); Absolute Neutrophil Count 3.9 X10^3/uL (2.0-7.7); Basophil# 0.03 X10^3/uL; Basophil% 0.5 % (0-1); Eosinophil# 0.11 X10^3/uL; Hematocrit 34.5 % (37-47); Lymphocyte # 1.08 X10^3/ul (0.83-4.51); Lymphocyte % 19.2 % (19-41); Mean Corp Hgb Conc 31.9 g/dL (32-36); Mean Corpuscular Hgb 27.6 pg (27.0-32.0); Mean Corpuscular Volume 86.7 fL (81-99); Mean Platelet Vol. 9.6 fl (6.2-12.0); Monocyte# 0.48 X10^3/uL; Monocyte% 8.5 % (0-10); NRBC Flagged by Analyzer 0 % (0-5); Neutrophil # 3.91 X10^3/uL (2.7-7.7); Neutrophil % 69.4 % (47-70); POSITIVE MORPHOLOGY YES; Platelet Count 236 K/mm3 (150-450); RBC Distribution Width CV 22.4 % (11.6-14.6); RBC Distribution Width SD 70.4 fl (35.1-43.9); Red Blood Count 3.98 M/mm3 (4.2-5.4); White Blood Count 5.6 K/mm3 (4.4-11.0)
[2025-01-17 17:26] LABS: Differential Indicated SCAN CRITERIA MET
[2025-01-17 18:27] LABS: ALB/GLOB Ratio 1.5 RATIO (0.9-2.4); AST(SGOT) 20 U/L (<=31); Alanine Aminotransfer ALT/SGPT 12 U/L (<=34); Albumin, Serum 3.6 g/dL (3.4-4.8); Alkaline Phosphatase 88 U/L (35-104); Anion Gap 13 (5-15); BUN 19 mg/dL (4-19); BUN/Creat Ratio 37.8 RATIO (10-20); Calcium,Total 8.7 mg/dL (7.6-11.0); Carbon Dioxide 23.4 mmol/L (21.0-32.0); Chloride 102 mmol/L (98-108); Creatinine, Serum 0.49 mg/dL (0.70-1.20); EST Glomerular Filtration Rate 93 (>60); Globulin 2.5 g/dL (2.2-4.2); Glucose 112 mg/dL (70-99); Potassium 3.7 mmol/L (3.3-5.1); Protein, Total 6.1 g/dL (5.9-8.4); Sodium Level 139 mmol/L (133-145); Total Bilirubin 0.29 mg/dL (0.00-1.30)
[2025-01-17 21:14] LABS: Differential Comment SCANNED; Platelet Estimate ADEQUATE (ADEQ)
[2025-01-17 21:15] LABS: Anisocytosis 1+
[2025-01-17 21:16] LABS: Polychromasia 1+
--- OUTSIDE RECORDS SUMMARY | 2025-01-17 22:09 | XMS RPT_ITS | CCD ---
Author Organization [facility] Care Team Providers Care Research Methodologist Name Role Phone Capellan, Abelino O'dell Unavailable Unavailabl e Capellan, Abelino O'dell Unavailable Unavailabl e Capellan, Abelino O'dell Unavailable Unavailabl e LUISE ORTIZ Unavailable Unavailable LUIS E ORTIZ Unavailable Unavailable KYMBERLY MORRISON Unavailable Unavailable CATHLEEN SALDANA Unavailable Unavailable Dr. Leandro Lua Chi Primary Care Provider Dr. Leandro Lua Chi Referring Provider SHON Reyes Attending Provider Dr. Leandro Lua Chi Primary Care Provider Dr. Leandro Lua Chi Referring Provider SHON Reyes Attending Provider Stoney AGUDELO, Dr. Leandro Chakraborty Primary Care Provider Dr. Leandro Lua MD, Chi Attending Provider Stoney AGUDELO, Dr. Leandro Chakraborty Referring Provider [phone] Payam Aldridge MD Emergency Provider Dr. Tonya Cortez DO Admit Provider Dr. Tonya Cortez DO Attending Provider Dr. Payam Aldridge MD Emergency Provider Dr. Tonya Cortez DO Admit Provider Dr. Tonya Cortez DO Attending Provider Dr. Tonya Cortez DO Other Provider Luciana AGUDELO, Dr. Reilly Attending Provider Diego ULRICH Dr. Castaneda Referring Provider [phone] Erika AGUDELO, Dr. Haile Louis Attending Provider Erika AGUDELO, Dr. Haile Louis Other Provider Lila AGUDELO, Dr. Crews Other Provider Juan AGUDELO, Dr. Hunter Attending Provider Erika AGUDELO, Dr. Haile Louis Referring Provider Ingris AGUDELO, Dr. Baez Other Provider Tonya Cortez Consulting Unavailable Haile Davis Attending Unavailable Stoney, Leandro Chi Primary Care Unavailable Tonya Cortez Admitting Unavailable Eleonora Sharp Consulting Unavailable Haile Davis Consulting Unavailable Stoney, Leandro Chi Primary Care Unavailable Manju Martinez Attending Unavailable Haile Davis Referring Unavailable Stoney, Leandro Chi Primary Care Unavailable Tonya Cortez Consulting Unavailable Tonya Cortez Admitting Unavailable Tonya Cortez Attending Unavailable Eleonora Sharp Consulting Unavailable Haile Davis Consulting Unavailable Nestor Amado Consulting Unavailable Stoney, Leandro Chi Primary Care Unavailable Stoney, Leandro Chi Referring Unavailable Stoney, Leandro Chi Attending Unavailable Stoney, Leandro Chi Primary Care Unavailable Stoney, Leandro Chi Referring Unavailable Stoney, Leandro Chi Attending Unavailable Stoney, Leandro Chi Attending Unavailable Stoney, Leandro Chi Primary Care Unavailable Stoney, Leandro Chi Attending Unavailable Stoney, Leandro Chi Primary Care Unavailable Tonya Cortez Referring Unavailable Stoney, Leandro Chi Primary Care Unavailable Tommie Chowdhury Attending Unavailable Tonya Cortez Admitting Unavailable Tonya Cortez Consulting Unavailable Tonya Cortez Attending Unavailable Stoney, Leandro Chi Primary Care Unavailable HyuniEleonora Consulting Unavailable Haile Davis Consulting Unavailable Nestor Amado Consulting Unavailable Haile Davis Attending Unavailable Tonya Cortez Attending Unavailable Stoney, Leandro Chi Attending Unavailable Stoney, Leandro Chi Primary Care Unavailable Stoney, Leandro Chi Attending Unavailable Stoney, Leandro Chi Primary Care Unavailable Stoney, Leandro Chi Referring Unavailable Stoney, Leandro Chi Primary Care Unavailable Stoney, Leandro Chi Referring Unavailable Stoney, Leandro Chi Attending Unavailable Stoney, Leandro Chi Primary Care Unavailable Leandro Lua Chi Referring Unavailable Leandro Lua Chi Attending Unavailable Allergies Allergy Classification Reported Allergen(s) Allergy Type Date of Onset Reaction(s) Facility (1 source) amoxicillin / clavulanate; Translations: [AUGMENTIN] Drug Allergy [facility] Repository (15 sources) levoFLOXacin Drug Allergy 1 Diarrhea [facility] (15 sources) Phenylephrine Drug Allergy 1 Other [facility] Comment on above: RAPID HEART BEAT (15 sources) Polymyxin B Drug Allergy 1 Swelling [facility] (5 sources) NEUROXIN Allergy to substance 1 Shortness of breath [facility] Work Phone: (10 sources) Norfloxacin Drug Allergy 2 unknown [facility] (1 source) levoFLOXacin Drug Allergy 5 [facility] Repository (1 source) Norfloxacin Drug Allergy 5 [facility] (1 source) Phenylephrine Drug Allergy 5 [facility] (1 source) polymyxin B Drug allergy (disorder) 5 [facility] Repository Medications Current Medications Medication Drug Class(es) Dates Sig (Normalized) Sig (Original) acetaminophen 500 mg oral tablet (20 sources) Start: 12-07-2024 take 2 tablets by mouth every eight hours Acetaminophen 500 mg Tablet Active 1000 mg PO EVERY 8 HOURS 0 December 07, 2024 12:00am Start: 11-25-2024 Acetaminophen (Arthritis Pain Relief (Acetam)) 650 mg tablet extended release Active 650 mg PO Q8H as needed for pain November 25, 2024 12:00am On Hold: Until done taking 1000 mg 3 times daily Start: 11-25-2024 take 1 tablet by douglas th every eight hours as needed for pain Acetaminophen (Arthritis Pain Relief (Acetam)) 650 mg tablet extended release Active 650 mg PO Q8H as needed for pain November 25, 2024 12:00am Start: 04-02-2017 End: 11-25-2024 take 2 tablets by mouth every eight hours as needed for pain Acetaminophen 500 MG tablet Discontinued 1000 mg PO EVERY 8 HOURS NEEDED as needed for Mild Pain (-10/23) April 02, 2017 12:00am November 25, 2024 11:38am Start: 04-02-2017 take 1000 mg by mout h every eight hours as needed Acetaminophen Active 1000 MG PO EVERY 8 HOURS NEEDED April 02, 2017 12:00am baclofen 10 mg oral tablet (7 sources) gamma-Aminobutyric Acid-ergic Agonist Start: 11-25-2024 End: 12-07-2024 Baclofen 10 mg tablet Active 10 mg PO AT BEDTIME December 07, 2024 2:13pm Only take as needed calcium carbonate 500 mg chewable tablet (20 sources) Start: 04-24-2022 take 1 tablet by mouth once daily Calcium Carbonate (Calcium 600) 600 mg calcium (1,500 mg) tablet Active 600 mg PO DAILY April 24, 2022 12:00am Start: 04-24-2022 take 1 tablet by douglas th twice daily as needed Calcium Carbonate (Tums) 200 mg calcium (500 mg) tablet,chewable Active 200 mg PO TWICE A DAY as needed for dyspepsia April 24, 2022 12:00am cholecalciferol 0.025 mg oral capsule (20 sources) Vitamin D Start: 11-25-2024 take 1 capsule by mouth once daily Cholecalciferol (Vitamin D3) (Vitamin D3) 25 mcg (1,000 unit) capsule Active 25 ug PO DAILY November 25, 2024 12:00am Start: 04-24-2022 End: 11-25-2024 take 1 capsule by mouth once daily Cholecalciferol (Vitamin D3) 10 mcg (400 unit) capsule Discontinued 10 ug PO DAILY April 24, 2022 12:00am November 25, 2024 11:49am Start: 08-24-2016 End: 04-02-2017 Cholecalciferol (Vitamin D3) (Vitamin D3) 2,000 UNIT capsule Discontinued 2000 U PO August 24, 2016 1:00am April 02, 2017 3:45pm Cranberry (4 sources) Non-Standardized Food Allergenic Extract, Non-Standardized Plant Allergenic Extract Start: 11-25-2024 take 1 capsule by mouth once daily Cranberry 500 mg capsule Active 500 mg PO DAILY November 25, 2024 12:00am administer with a meal dorzolamide 20 mg/ml / timolol 5 mg/ml ophthalmic solution (4 sources) Carbonic Anhydrase Inhibitor, beta-Adrenergic Samantha Start: 11-25-2024 Dorzolamide-Timol ol 22.3-6.8 mg/mL drops Active 1 NMA OPHTHALMIC TWICE A DAY November 25, 2024 12:00am fluticasone propionate 0.05 mg/actuat metered dose nasal spray (10 sources) Corticosteroid Start: 04-24-2022 Fluticasone Propionate 50 mcg/actuation spray,suspension Active 2 NMA INTRANASAL DAILY April 24, 2022 12:00am administer into each nostril Start: 04-24-2022 take 1 spray(s) nasa l route once daily Fluticasone Propionate Active 1 SPRAY INTRANASAL DAILY April 24, 2022 12:00am administer into each nostril 12 hr guaiFENesin 600 mg extended release oral tablet (14 sources) Start: 11-25-2024 take 1 tablet by douglas th twice daily as needed for congestion, then take 1 tablet by mouth every twelve hours as needed for congestion Guaifenesin (Mucinex) 600 mg tablet extended release 12hr Active 600 mg PO TWICE A DAY as needed for congestion November 25, 2024 12:00am Start: 04-24-2022 End: 11-25-2024 take 1 tablet by mouth twice daily, then take 1 tablet by mouth every twelve hours Guaifenesin (Mucinex) 1,200 mg tablet extended release 12hr Discontinued 1200 mg PO TWICE A DAY April 24, 2022 12:00am November 25, 2024 11:49am hydroCHLOROthiazide 12.5 mg oral capsule (20 sources) Thiazide Diuretic Start: 12-07-2024 take 1 capsule by mouth once daily Hydrochlorothiazide 12.5 mg Capsule Active 12.5 mg PO DAILY December 07, 2024 12:00am Start: 11-25-2024 End: 12-07-2024 take 1 tablet by mouth once daily Hydrochlorothiazide 25 mg tablet Discontinued 25 mg PO DAILY November 25, 2024 12:00am December 07, 2024 2:10pm Start: 03-18-2017 End: 11-25-2024 take 1 tablet by mouth once daily Hydrochlorothiazide 12.5 MG tablet Discontinued 12.5 mg PO DAILY March 18, 2017 12:00am November 25, 2024 11:36am Start: 08-24-2016 End: 04-02-2017 Hydrochlorothiazide Disconti nued August 24, 2016 3:33pm April 02, 2017 3:46pm Start: 08-24-2016 End: 04-02-2017 Hydrochlorothiazide Disconti nued August 24, 2016 12:00am April 02, 2017 2:46pm Start: 08-24-2016 End: 04-02-2017 Hydrochlorothiazide Disconti nued August 24, 2016 1:00am April 02, 2017 3:46pm ketorolac tromethamine 5 mg/ml ophthalmic solution (4 sources) Nonsteroidal Anti-inflammatory Drug, Cyclooxygenase Inhibitor Start: 11-25-2024 Ketorolac 0.5 % drops Active 1 NMA OPHTHALMIC THREE TIMES A DAY November 25, 2024 12:00am INSTILL 1 DROP IN THE RIGHT EYE THREE TIMES DAILY FOR 5 DAYS then stop lidocaine 0.05 mg/mg medicated patch (3 sources) Antiarrhythmic, Amide Local Anesthetic Start: 12-07-2024 Lidocaine 5 % Adhesive Patch,Medicated Active 1 NMA TOPICAL DAILY December 07, 2024 12:00am Please contact the information source for Protocol details. loperamide hydrochloride 2 mg oral capsule (3 sources) Opioid Agonist Start: 12-07-2024 take 1 capsule by mouth every four hours as needed for diarrhea Loperamide 2 mg Capsule Active 2 mg PO EVERY 4 HOURS NEEDED as needed for Diarrhea/Loose Stools 0 December 07, 2024 12:00am magnesium oxide 400 mg oral tablet (4 sources) Start: 11-25-2024 take 1 tablet by mouth once daily Magnesium Oxide 400 mg (241.3 mg magnesium) tablet Active 400 mg PO DAILY November 25, 2024 12:00am melatonin 5 mg oral tablet (14 sources) Start: 11-25-2024 take 1 tablet by mouth at bedtime as needed for sleep Melatonin 5 mg tablet Active 5 mg PO AT BEDTIME as needed for sleep November 25, 2024 12:00am Start: 04-24-2022 End: 11-25-2024 take 1 capsule by mouth at bedtime as needed Melatonin 3 mg capsule Discontinued 3 mg PO BEDTIME as needed April 24, 2022 12:00am November 25, 2024 11:50am metoprolol tartrate 25 mg oral tablet (20 sources) beta-Adrenergic Samantha Start: 12-07-2024 take 1 tablet by mouth three times daily Metoprolol Tartrate 25 mg Tablet Active 25 mg PO THREE TIMES A DAY December 07, 2024 12:00am Start: 08-24-2016 End: 12-07-2024 take 1 tablet by mouth once daily Metoprolol Succinate 25 mg tablet extended release 24 hr Discontinued 25 mg PO DAILY April 24, 2022 12:52pm December 07, 2024 2:11pm Multivitamin preparation (4 sources) Start: 04-24-2022 take 1 tablet by mouth once daily Multivitamin Active 1 TABLET PO DAILY April 23, 2022 11:00pm Start: 04-24-2022 take 1 tablet by douglas th once daily Multivitamin Active 1 TABLET PO DAILY April 24, 2022 12:00am Multivitamin tablet (6 sources) Start: 04-24-2022 Multivitamin tablet Active 1 {tbl} PO DAILY April 24, 2022 12:00am ondansetron 4 mg disintegrating oral tablet (18 sources) Serotonin-3 Receptor Antagonist Start: 12-07-2024 take 1 tablet by mouth every eight hours as needed for nausea and vomiting Ondansetron 4 mg tablet,disintegrat ing Active 4 mg PO Q8H as needed for nausea and vomiting December 07, 2024 12:00am Start: 04-02-2017 End: 04-24-2022 take 1 tablet by mouth every eight hours as needed for nausea Ondansetron 4 MG tablet Discontinued 4 mg PO EVERY 8 HOURS NEEDED as needed for NAUSEA April 02, 2017 12:00am April 24, 2022 12:55pm pantoprazole 40 mg delayed release oral tablet (19 sources) Proton Pump Inhibitor Start: 11-25-2024 take 1 tablet by mouth once daily Pantoprazole 40 mg tablet,delayed release (DR/EC) Active 40 mg PO DAILY November 25, 2024 12:00am Start: 04-02-2017 End: 04-24-2022 take 1 tablet by mouth once daily Pantoprazole 40 MG tablet Discontinued 40 mg PO DAILY April 02, 2017 12:00am April 24, 2022 12:55pm sulfamethoxazole 800 mg / trimethoprim 160 mg oral tablet (3 sources) Dihydrofolate Reductase Inhibitor Antibacterial, Sulfonamide Antimicrobial Start: 12-07-2024 Sulfamethoxazole-Trimethopri m (Bactrim Ds) 800-160 mg tablet Active 1 {tbl} PO TWICE A DAY December 07, 2024 12:00am Idnbhbw-Vqtn-Ebxmh-O reg-Capryl (3 sources) Start: 04-24-2022 Nzzuxso-Tepx-Vpkca-Oreg-Capr yl Active CAP PO April 23, 2022 11:00pm Start: 04-24-2022 Xrsgrot-Pzjv-M xgqr-Etdk-Ofigap Active CAP PO April 24, 2022 12:00am Fnevfuft-Twrl-Gdeod-Oreg-Cap ry (1 source) Start: 04-24-2022 Uyloiivz-Ecwn-Jeauk-Oreg-Cap ry Active CAP PO April 24, 2022 12:00am Completed/Discontinued Medications Medication Drug Class(es) Dates Sig (Normalized) Sig (Original) acetaminophen 325 mg / HYDROcodone bitartrate 5 mg oral tablet (15 sources) Opioid Agonist Start: 08-24-2016 End: 04-02-2017 Hydrocodone-Acetami nophen 1 TABLET tablet Discontinued 1 {tbl} PO EVERY 6 HOURS NEEDED as needed for Pain August 24, 2016 1:00am April 02, 2017 3:46pm Start: 08-24-2016 End: 04-02-2017 take 1 tablet by mouth every six hours as needed Hydrocodone-Acetaminophen Discontinued 1 TABLET PO EVERY 6 HOURS NEEDED August 24, 2016 1:00am April 02, 2017 3:46pm acetaminophen 325 mg / oxyCODONE hydrochloride 5 mg oral tablet (15 sources) Opioid Agonist Start: 08-24-2016 End: 04-02-2017 Oxycodone-Acetaminophen 1 TABLET tablet Discontinued 1 {tbl} PO EVERY 4 HOURS NEEDED as needed for Pain August 24, 2016 1:00am April 02, 2017 3:46pm Start: 08-24-2016 End: 04-02-2017 take 1 tablet by mouth every four hours as needed Oxycodone-Acetaminophen Discontinued 1 TABLET PO EVERY 4 HOURS NEEDED August 24, 2016 1:00am April 02, 2017 3:46pm amoxicillin 875 mg / clavulanate 125 mg oral tablet (17 sources) Penicillin-class Antibacterial Start: 10-08-2023 End: 10-18-2023 Amoxicillin-Pot Clavulanate 875-125 mg tablet Discontinued 1 {tbl} PO Q12H 04 06October 08, 2023 1:00am October 17, 2023 1:00am October 18, 2023 1:04am Start: 10-08-2023 End: 10-18-2023 take 1 tablet by mouth every twelve hours Amoxicillin-Pot Clavulanate Discontinued 1 TABLET PO Q12H 20 October 08, 2023 1:00am October 18, 2023 1:04am Start: 04-24-2022 End: 05-04-2022 Amoxicillin-Pot Clavulanate 875-125 mg tablet Discontinued 1 {tbl} PO Q12H 20 April 24, 2022 12:00am May 03, 2022 12:00am May 04, 2022 12:03am Start: 04-24-2022 End: 05-04-2022 take 1 tablet by mouth every twelve hours Amoxicillin-Pot Clavulanate Discontinued 1 TABLET PO Q12H 20 April 24, 2022 12:00am May 04, 2022 12:03am aspirin 81 mg chewable tablet (15 sources) Platelet Aggregation Inhibitor, Nonsteroidal Anti-inflammatory Drug Start: 08-24-2016 End: 04-02-2017 Aspirin 81 MG Tab.Chew Discontinued 81 mg PO August 24, 2016 1:00am April 02, 2017 3:45pm ferrous sulfate 325 mg oral tablet (15 sources) Start: 08-24-2016 End: 04-02-2017 take 1 tablet by mouth once daily Ferrous Sulfate 325 MG tablet Discontinued 325 mg PO DAILY@0800 August 24, 2016 1:00am April 02, 2017 3:45pm L.Acidoph, Paracasei,B. Lactis (9 sources) Start: 08-24-2016 End: 04-02-2017 L.Acidoph, Paracasei,B. Lactis Discontinued 1 EACH PO NEEDED August 24, 2016 3:33pm April 02, 2017 3:46pm Start: 08-24-2016 End: 04-02-2017 L.Acidoph, Paracasei,B. Lact is Discontinued 1 EACH PO NEEDED August 24, 2016 12:00am April 02, 2017 2:46pm Start: 08-24-2016 End: 04-02-2017 L.Acidoph, Paracasei,B. Lact is Discontinued 1 EACH PO NEEDED August 24, 2016 1:00am April 02, 2017 3:46pm Adair Ford B.Animal is 1 EACH capsule (6 sources) Start: 08-24-2016 End: 04-02-2017 Adair Ford B.Animal is 1 EACH capsule Discontinued 1 NMA PO NEEDED as needed for ANTBIOTIC TREATMENT August 24, 2016 1:00am April 02, 2017 3:46pm lactulose 667 mg/ml oral solution (15 sources) Osmoti c Laxati ve Start: 03-18-2017 End: 04-02-2017 take 10 g by mouth four times daily Lactulose 10 GM/15 ML Solution Discontinued 10 g PO 4 TIMES DAILY March 18, 2017 12:00am April 02, 2017 3:46pm loratadine 10 mg oral tablet (15 sources) Start: 08-24-2016 End: 04-02-2017 take 1 tablet by mouth once daily Loratadine (Claritin) 10 MG tablet Discontinued 10 mg PO DAILY August 24, 2016 1:00am April 02, 2017 3:46pm Magnesium (10 sources) Start: 04-24-2022 End: 11-25-2024 take 1 tablet by mouth once daily Magnesium 250 mg tablet Discontinued 250 mg PO DAILY April 24, 2022 12:00am November 25, 2024 11:38am Start: 04-24-2022 take 1 tablet by douglas th once daily Magnesium 250 mg tablet Active 250 mg PO DAILY April 24, 2022 12:00am Start: 04-24-2022 take 250 mg by mouth once mehrdad y Magnesium Active 250 MG PO DAILY April 23, 2022 11:00pm Start: 04-24-2022 take 250 mg by mouth once mehrdad y Magnesium Active 250 MG PO DAILY April 24, 2022 12:00am meclizine hydrochloride 12.5 mg oral tablet (20 sources) Antiemetic Start: 03-18-2017 End: 11-25-2024 take 1 tablet by mouth three times daily Meclizine 12.5 MG tablet Discontinued 12.5 mg PO THREE TIMES A DAY 90 April 02, 2017 3:46pm November 25, 2024 11:53am meloxicam 7.5 mg oral tablet (15 sources) Nonsteroidal Anti-inflammatory Drug Start: 08-24-2016 End: 04-02-2017 take 1 tablet by mouth once daily Meloxicam (Mobic) 7.5 MG tablet Discontinued 7.5 mg PO DAILY August 24, 2016 1:00am April 02, 2017 3:46pm menthol 0.0044 mg/mg / zinc oxide 0.2 mg/mg topical ointment (15 sources) Start: 04-02-2017 End: 04-24-2022 Menthol-Zinc Oxide (Calmoseptine) 1 APPLIC ointment Discontinued 1 NMA TOPICAL 00,2200 April 02, 2017 12:00am April 24, 2022 12:55pm Start: 04-02-2017 End: 04-24-2022 Menthol-Zinc Oxide (Calmosep guillaume) 1 APPLIC ointment Discontinued 1 APPLIC TOPICAL 00,2200 April 02, 2017 12:00am April 24, 2022 12:55pm naproxen 250 mg oral tablet (4 sources) Nonsteroidal Anti-inflammatory Drug Start: 11-25-2024 End: 12-07-2024 take 1 tablet by mouth twice daily Naproxen 250 mg tablet Discontinued 250 mg PO TWICE A DAY November 25, 2024 12:00am December 07, 2024 2:11pm nystatin 100 unt/mg topical powder (15 sources) Polyene Antifungal Start: 04-02-2017 End: 04-24-2022 Nystatin (Nyamyc) 1 APPLIC bottle Discontinued 1 NMA TOPICAL 0600,2200 April 02, 2017 12:00am April 24, 2022 12:55pm Start: 04-02-2017 End: 04-24-2022 Nystatin (Nyamyc) 1 APPLIC b ottle Discontinued 1 APPLIC TOPICAL 00,2200 April 02, 2017 12:00am April 24, 2022 12:55pm polyethylene glycol 3350 77450 mg powder for oral solution (15 sources) Osmotic Laxative Start: 04-02-2017 End: 04-24-2022 Polyethylene Glycol 3350 17 GM packet Discontinued 17 g PO Q48H April 02, 2017 12:00am April 24, 2022 12:55pm potassium chloride 20 meq extended release oral tablet (10 sources) Start: 04-24-2022 End: 11-25-2024 Potassium Chloride 20 mEq tablet extended release Discontinued 20 meq PO April 24, 2022 12:00am November 25, 2024 11:44am predniSONE 10 mg oral tablet (11 sources) Start: 11-25-2024 End: 12-07-2024 Prednisone 10 mg tablet Discontinued 0 mg PO .COMPLEX November 25, 2024 12:00am December 07, 2024 2:11pm orally SEE TAPER; Please contact the information source for Taper Schedule details. Start: 10-08-2023 End: 10-18-2023 take 4 tablets by mouth once daily, then take 1-3 tablets by mouth once daily, then take 4-6 tablets by mouth once daily, then take 7-9 tablets by mouth once daily Prednisone 10 mg tablet Discontinued 10 mg PO daily 12 06October 08, 2023 1:00am October 17, 2023 1:00am October 18, 2023 1:04am Take 4 tabs once daily days 1-3, 3 tabs once daily days 4-6, 2 tabs once daily days 7-9 and 1 tab once day 10. traMADol hydrochloride 50 mg oral tablet (20 sources) Opioid Agonist Start: 03-18-2017 End: 04-24-2022 take 1 tablet by mouth every six hours as needed for pain Tramadol 50 MG tablet Discontinued 50 mg PO EVERY 6 HOURS NEEDED as needed for Pain 60 April 02, 2017 3:46pm April 24, 2022 12:55pm Izruqhze-Gkip-Wlpqk-O reg-Capry 100 mg-150 mg- 50 mg-150 mg capsule (6 sources) Start: 04-24-2022 End: 11-25-2024 Wfxnucma-Hhrk-Fgqza -Oreg-Capry 100 mg-150 mg- 50 mg-150 mg capsule Discontinued NMA PO April 24, 2022 12:00am November 25, 2024 11:44am Start: 04-24-2022 Turmeric-Ging- Yfplt-Sxqu-Tdbub 100 mg-150 mg- 50 mg-150 mg capsule Active NMA PO April 24, 2022 12:00am Problems Active Problems Problem Classification Problem Date Documented Da te Episodic/Chronic Bacterial infection; unspecified site (8 sources) Infection due to ESBL Escherichia coli; Translations: [Other bacterial infections of unspecified site] Onset: 12-05-2024 Episodic Conditions associated with dizziness or vertigo (20 sources) Dizziness and giddiness; Translations: [Other peripheral vertigo, unspecified ear] Onset: 6 02-26-2021 Episodic Conditions associated with dizziness or vertigo (1 source) Conditions associated with dizziness or vertigo Onset: 7 Congestive heart failure; nonhypertensive (1 source) Heart failure, unspecified; Translations: [Heart failure, unspecified] Onset: 5 Chronic E Codes: Fall (15 sources) Fall; Translations: [Unspecified fall, initial encounter] 03-18-2017 Episodic Esophageal disorders (15 sources) Gastroesophageal reflux disease; Translations: [Gastro-esophageal reflux disease without esophagitis] 02-26-2021 Chronic Essential hypertension (17 sources) Essential (primary) hypertension; Translations: [Hypertensive disorder] Onset: 6 02-26-2021 Chronic Essential hypertension (1 source) Essential hypertension Onset: 7 Headache, including migraine (2 sources) Headache, including migraine Onset: 7 Heart valve disorders (1 source) Nonrheumatic mitral (valve) prolapse; Translations: [NONRHEUMATIC MITRAL VALV] Onset: 6 Chronic Hemorrhoids (10 sources) Hemorrhoids; Translations: [Unspecified hemorrhoids] 04-24-2022 Episodic Malignant neoplasm without specification of site (10 sources) Malignant neoplastic disease; Translations: [Malignant (primary) neoplasm, unspecified] 04-24-2022 Chronic Occlusion or stenosis of precerebral arteries (1 source) Occlusion and stenosis of bilateral carotid arteries; Translations: [OCCLUSION T STENOS MORGAN] Onset: 6 Chronic Osteoarthritis (10 sources) Arthritis; Translations: [Unspecified osteoarthritis, unspecified site] 04-24-2022 Chronic Other and ill-defined cerebrovascular disease (1 source) Other cerebrovascular disease; Translations: [OTHER CEREBROVASCULAR DI] Onset: 6 Chronic Other bone disease and musculoskeletal deformities (6 sources) Disorder of musculoskeletal system; Translations: [Disorder of bone, unspecified] 12-15-2024 Episodic Other bone disease and musculoskeletal deformities (1 source) Disorder of bone, unspecified; Translations: [Disorder of bone, unspecified] Onset: Episodic Other connective tissue disease (1 source) Presence of right artificial shoulder joint; Translations: [PRESENCE RT ARTIFICIAL S] Onset: 6 Chronic Other connective tissue disease (10 sources) History of operative procedure on shoulder; Translations: [Presence of unspecified artificial shoulder joint] 04-24-2022 Chronic Other fractures (20 sources) Compression fracture of lumbar spine; Translations: [Wedge compression fracture of first lumbar vertebra, initial encounter for closed fracture] 02-26-2021 Episodic Other fractures (6 sources) Fracture of twelfth thoracic vertebra; Translations: [Wedge compression fracture of T11-T12 vertebra, initial encounter for closed fracture] 12-15-2024 Episodic Other fractures (6 sources) Collapse of lumbar vertebra; Translations: [Collapsed vertebra, not elsewhere classified, lumbar region, initial encounter for fracture] 12-15-2024 Episodic Other fractures (1 source) Wedge compression fracture of first lumbar vertebra, initial encounter for closed fracture; Translations: [Wedge compression fracture of first lumbar vertebra, initial encounter for closed fracture] Onset: 5 Episodic Other fractures (1 source) Wedge compression fracture of T11-T12 vertebra, initial encounter for closed fracture; Translations: [Wedge compression fracture of T11-T12 vertebra, initial encounter for closed fracture] Onset: 5 Episodic Other fractures (1 source) Collapsed vertebra, not elsewhere classified, lumbar region, initial encounter for fracture; Translations: [Collapsed vertebra, not elsewhere classified, lumbar region, initial encounter for fracture] Onset: 5 Episodic Other gastrointestinal disorders (15 sources) Constipation; Translations: [Constipation, unspecified] 02-26-2021 Episodic Other gastrointestinal disorders (10 sources) History of bypass of stomach; Translations: [Bariatric surgery status] 04-24-2022 Episodic Other injuries and conditions due to external causes (15 sources) Injury of head; Translations: [Unspecified injury of head, initial encounter] 03-18-2017 Episodic Other lower respiratory disease (1 source) Shortness of breath; Translations: [Shortness of breath] Onset: 5 Episodic Other non-traumatic joint disorders (1 source) Joint disorder, unspecified; Translations: [Joint disorder, unspecified] Onset: 5 Episodic Other upper respiratory infections (20 sources) Acute sinusitis, unspecified; Translations: [Acute sinusitis] Onset: 6 Episodic Pathological fracture (7 sources) Pathological fracture due to osteoporosis; Translations: [Age-related osteoporosis with current pathological fracture, unspecified site, initial encounter for fracture] Onset: 5 12-15-2024 Episodic Residual codes; unclassified (1 source) Chills (without fever); Translations: [Chills (without fever)] Onset: 5 Episodic Spondylosis; intervertebral disc disorders; other back problems (8 sources) Degeneration of lumbar intervertebral disc; Translations: [Degeneration of intervertebral disc of lumbar region] 11-25-2024 Chronic Spondylosis; intervertebral disc disorders; other back problems (20 sources) Backache; Translations: [Dorsalgia, unspecified] 03-18-2017 Episodic Unclassified (2 sources) Other specified disorders of nose and nasal sinuses / J34.89(ICD-10) Onset: 7 Unclassified (1 source) Fall (on) (from) unspecified stairs and steps, init encntr / W10.9XXA(ICD-10) Onset: 7 Unclassified (1 source) Unspecified osteoarthritis, unspecified site / M19.90(ICD-10) Onset: 7 Unclassified (3 sources) Please call tomorrow to set up an appointment Unclassified (1 source) Low back pain, unspecified; Translations: [Low back pain, unspecified] Onset: 5 Unclassified (1 source) Other low back pain; Translations: [Other low back pain] Onset: 5 Past or Other Problems Problem Classification Problem Date Documented Da te Episodic/Chronic Cancer of cervix (1 source) Personal history of malignant neoplasm of cervix uteri; Translations: [PERS HX MALIG NEOPLASM C] Onset: 03-27-2016 Episodic Deficiency and other anemia (1 source) Anemia, unspecified; Translations: [ANEMIA UNSPECIFIED] Onset: 03-27-2016 Episodic Other and unspecified benign neoplasm (1 source) Personal history of colonic polyps; Translations: [PERSONAL HISTORY OF COLO] Onset: 03-27-2016 Episodic Results Test Name Value Interpretation Reference Range Facility Basic Metabolic Profile (BMP )on 01-10-2025 BUN/CRE 40.7 RATIO High 10-20 [facility] Comment on above: Performed By: #### L 100.0100, L500.2500 #### [facility] [address] [place], [address] Calcium [Mass/Vol] 8.9 mg/dL Normal 7.6-11.[address] [facility] Comment on above: Performed By: #### L 100.0100, L500.2500 #### [facility] [address] [place], [address] Chloride [Moles/Vol] 105 mmol/L Normal 98-108 [facility] Comment on above: Performed By: #### L 100.0100, L500.2500 #### [facility] [address] [place], [address] CO2 [Moles/Vol] 23.3 mmol/L Normal 21.0-32.0 [facility] Comment on above: Performed By: #### L 100.0100, L500.2500 #### [facility] [address] [place], [address] Creatinine [Mass/Vol] 0.48 mg/dL Low 0.70-1.20 [facility] Comment on above: Performed By: #### L 100.0100, L500.2500 #### [facility] [address] [place], [address] GAP 12 Normal 5-15 [facility] Comment on above: Performed By: #### L 100.0100, L500.2500 #### [facility] [address] [place], [address] GFR/1.73 sq M.predicted among non-blacks MDRD (S/P/Bld) [Vol rate/Area] 93 mL/min/{1.73_m2} Normal >60 [facility] Comment on above: Result Comment: mL/m in/1.73m2 CKD-EPI Creatinine Equation (2020) Performed By: #### L 100.0100, L500.2500 #### [facility] [address] [place], [address] Glucose [Mass/Vol] 114 mg/dL High 70-[address] [facility] Comment on above: Performed By: #### L 100.0100, L500.2500 #### [facility] [address] [place], [address] Potassium [Moles/Vol] 3.9 mmol/L Normal 3.3-5.1 [facility] Comment on above: Performed By: #### L 100.0100, L500.2500 #### [facility] [address] [place], [address] Sodium [Moles/Vol] 140 mmol/L Normal 133-[address] [facility] Comment on above: Performed By: #### L 100.0100, L500.2500 #### [facility] [address] [place], [address] Urea nitrogen [Mass/Vol] 20 mg/dL High 4-19 [facility] Comment on above: Performed By: #### L 100.0100, L500.2500 #### [facility] [address] [place], [address] CBC W/Diff, Automatedon 05-2 Anisocytosis Ql (Bld) 2+ Normal [facility] Comment on above: Performed By: #### L 100.0100, L500.2500 #### [facility] [address] [place], [address] PLT EST ADEQUATE Normal ADEQ [facility] Comment on above: Performed By: #### L 100.0100, L500.2500 #### [facility] [address] [place], [address] SMEAR COMMENT SCANNED Normal [facility] Comment on above: Performed By: #### L 100.0100, L500.2500 #### [facility] [address] [place], [address] Anion gap in Serum or Plasma Ordered By: Leandro Lua on 12-28-2024 Anion gap [Moles/Vol] 13 mmol/L 12-28 [facility] BUN/creatinine ratioOrdered By: Leandro Lua on 12-28-2024 Urea nitrogen/Creatinine [Mass ratio] 44.7 mg/mg High 06-04 [facility] Basic Metabolic Profile (BMP )on 12-28-2024 BUN/CRE 44.7 RATIO High 06-04 [facility] Comment on above: Performed By: #### L 500.4050, L100.0100, L506.1000, L501.9520, L500.4100 #### [facility] [address] [place], [address] Calcium [Mass/Vol] 9.4 mg/dL Normal 7.6-11.[address] [facility] Comment on above: Performed By: #### L 500.4050, L100.0100, L506.1000, L501.9520, L500.4100 #### [facility] [address] [place], [address] Chloride [Moles/Vol] 97 mmol/L Low 98-108 [facility] Comment on above: Performed By: #### L 500.4050, L100.0100, L506.1000, L501.9520, L500.4100 #### [facility] [address] [place], [address] CO2 [Moles/Vol] 27.1 mmol/L Normal 21.0-32.0 [facility] Comment on above: Performed By: #### L 500.4050, L100.0100, L506.1000, L501.9520, L500.4100 #### [facility] [address] [place], [address] Creatinine [Mass/Vol] 0.46 mg/dL Low 0.70-1.20 [facility] Comment on above: Performed By: #### L 500.4050, L100.0100, L506.1000, L501.9520, L500.4100 #### [facility] [address] [place], [address] GAP 13 Normal 5-15 [facility] Comment on above: Performed By: #### L 500.4050, L100.0100, L506.1000, L501.9520, L500.4100 #### [facility] [address] [place], [address] GFR/1.73 sq M.predicted among non-blacks MDRD (S/P/Bld) [Vol rate/Area] 94 mL/min/{1.73_m2} Normal >60 [facility] Comment on above: Result Comment: mL/m in/1.73m2 CKD-EPI Creatinine Equation (2020) Performed By: #### L 500.4050, L100.0100, L506.1000, L501.9520, L500.4100 #### [facility] [address] [place], [address] Glucose [Mass/Vol] 118 mg/dL High 70-[address] [facility] Comment on above: Performed By: #### L 500.4050, L100.0100, L506.1000, L501.9520, L500.4100 #### [facility] [address] [place], [address] Potassium [Moles/Vol] 3.9 mmol/L Normal 3.3-5.1 [facility] Comment on above: Performed By: #### L 500.4050, L100.0100, L506.1000, L501.9520, L500.4100 #### [facility] [address] [place], [address] Sodium [Moles/Vol] 137 mmol/L Normal 133-[address] [facility] Comment on above: Performed By: #### L 500.4050, L100.0100, L506.1000, L501.9520, L500.4100 #### [facility] [address] [place], [address] Urea nitrogen [Mass/Vol] 21 mg/dL High 4-19 [facility] Comment on above: Performed By: #### L 500.4050, L100.0100, L506.1000, L501.9520, L500.4100 #### [facility] [address] [place], [address] Carbon dioxide, total [Moles /volume] in Central venous bloodOrdered By: Leandro Lua on 12-28-2024 CO2 [Moles/Vol] 27.1 mmol/L 21.0-32.0 [facility] Chloride assayOrdered By: Scottie Lua on 12-28-2024 Chloride [Moles/Vol] 97 mmol/L Low 98-108 [facility] Glomerular filtration rate ( GFR) estimation/1.73 sq m using serum, plasma, or whole bOrdered By: Leandro Lua on 12-28-2024 GFR/1.73 sq M.predicted among non-blacks MDRD (S/P/Bld) [Vol rate/Area] 94 mL/min/{1.73_m2} >60 [facility] Comment on above: mL/min/1.73m2 CKD-EP I Creatinine Equation (2020) Potassium measurement (mass/ volume)Ordered By: Leandro Lua on 12-28-2024 Potassium (Unsp spec) [Mass/Vol] 3.9 mmol/L 3.3-5.1 [facility] Serum creatinine measurement (mass/volume)Ordered By: Leandro Lua on 12-28-2024 Creatinine [Mass/Vol] 0.46 mg/dL Low 0.70-1.20 [facility] Serum glucose measurement (m ass/volume)Ordered By: Leandro Lua on 12-28-2024 Glucose [Mass/Vol] 118 mg/dL High 70-[address] [facility] Serum or plasma calcium ashley urement (mass/volume)Ordered By: Leandro Lua on 12-28-2024 Calcium [Mass/Vol] 9.4 mg/dL 7.6-11.[address] [facility] Serum or plasma urea nitroge n measurement (mass/volume)Ordered By: Leandro Lua on 12-28-2024 Urea nitrogen [Mass/Vol] 21 mg/dL High 12-02 [facility] Sodium levelOrdered By: Leandro Lua on 12-28-2024 Sodium [Moles/Vol] 137 mmol/L 133-[address] [facility] Absolute lymphocyte countOrd ered By: Leandro Lua on 12-20-2024 Lymphocytes Auto (Unsp spec) [#/Vol] 1.19 10*3/uL 0.83-4.51 [facility] Absolute neutrophil countOrd ered By: Leandro Stoney on 12-20-2024 Neutrophils (Bld) [#/Vol] 3.8 10*3/uL 2.0-7.7 [facility] Anion gap in Serum or Plasma Ordered By: Leandro Lua on 12-20-2024 Anion gap [Moles/Vol] 13 mmol/L 12-28 [facility] Automated lymphocyte count a s percentage of total leukocytesOrdered By: Leandro Stoney on 12-20-2024 Lymphocytes/100 WBC Auto (Unsp spec) 20.7 % [facility] BUN/creatinine ratioOrdered By: Leandro Lua on 12-20-2024 Urea nitrogen/Creatinine [Mass ratio] 30.5 mg/mg High 06-04 [facility] Basic Metabolic Profile (BMP )on 12-20-2024 BUN/CRE 30.5 RATIO High 06-04 [facility] Comment on above: Performed By: #### L 500.4050, L100.0100, L506.1000, L501.9520, L500.4100 #### [facility] [address] [place], [place], [id number] Calcium [Mass/Vol] 9.3 mg/dL Normal 7.6-11.[address] [facility] Comment on above: Performed By: #### L 500.4050, L100.0100, L506.1000, L501.9520, L500.4100 #### [facility] [address] [place], [address] Chloride [Moles/Vol] 94 mmol/L Low 98-108 [facility] Comment on above: Performed By: #### L 500.4050, L100.0100, L506.1000, L501.9520, L500.4100 #### [facility] [address] [place], [address] CO2 [Moles/Vol] 26.1 mmol/L Normal 21.0-32.0 [facility] Comment on above: Performed By: #### L 500.4050, L100.0100, L506.1000, L501.9520, L500.4100 #### [facility] [address] [place], [address] Creatinine [Mass/Vol] 0.50 mg/dL Low 0.70-1.20 [facility] Comment on above: Performed By: #### L 500.4050, L100.0100, L506.1000, L501.9520, L500.4100 #### [facility] [address] [place], [address] GAP 13 Normal 5-15 [facility] Comment on above: Performed By: #### L 500.4050, L100.0100, L506.1000, L501.9520, L500.4100 #### [facility] [address] [place], [address] GFR/1.73 sq M.predicted among non-blacks MDRD (S/P/Bld) [Vol rate/Area] 92 mL/min/{1.73_m2} Normal >60 [facility] Comment on above: Result Comment: mL/m in/1.73m2 CKD-EPI Creatinine Equation (2020) Performed By: #### L 500.4050, L100.0100, L506.1000, L501.9520, L500.4100 #### [facility] [address] [place], [address] Glucose [Mass/Vol] 114 mg/dL High 70-[address] [facility] Comment on above: Performed By: #### L 500.4050, L100.0100, L506.1000, L501.9520, L500.4100 #### [facility] [address] [place], [address] Potassium [Moles/Vol] 3.9 mmol/L Normal 3.3-5.1 [facility] Comment on above: Performed By: #### L 500.4050, L100.0100, L506.1000, L501.9520, L500.4100 #### [facility] [address] [place], [address] Sodium [Moles/Vol] 132 mmol/L Low 133-[address] [facility] Comment on above: Performed By: #### L 500.4050, L100.0100, L506.1000, L501.9520, L500.4100 #### [facility] [address] [place], [address] Urea nitrogen [Mass/Vol] 15 mg/dL Normal 4-19 [facility] Comment on above: Performed By: #### L 500.4050, L100.0100, L506.1000, L501.9520, L500.4100 #### [facility] [address] [place], [address] Basophil percentageOrdered B y: Leandro Lua on 12-20-2024 Basophils/100 WBC (Bld) 0.7 % 0-1 [facility] CBC W/Diff, Automatedon Absolute Lymph 1.19 X10 3/uL Normal 0.83-4.51 [facility] Comment on above: Performed By: #### L 500.4050, L100.0100, L506.1000, L501.9520, L500.4100 #### [facility] [address] [place], [address] Absolute Neut 3.8 X10 3/uL Normal 2.0-7.7 [facility] Comment on above: Performed By: #### L 500.4050, L100.0100, L506.1000, L501.9520, L500.4100 #### [facility] [address] [place], [address] Basophils/100 WBC (Bld) 0.7 % Normal 0-1 [facility] Comment on above: Performed By: #### L 500.4050, L100.0100, L506.1000, L501.9520, L500.4100 #### [facility] [address] [place], [address] Eosinophils/100 WBC (Bld) 2.4 % Normal 0-5 [facility] Comment on above: Performed By: #### L 500.4050, L100.0100, L506.1000, L501.9520, L500.4100 #### [facility] [address] [place], [address] Erythrocyte distribution width (RBC) [Ratio] 20.0 % High 11.6-14.6 [facility] Comment on above: Performed By: #### L 500.4050, L100.0100, L506.1000, L501.9520, L500.4100 #### [facility] [address] [place], [address] Hematocrit (Bld) [Volume fraction] 36.0 % Low 37-47 [facility] Comment on above: Performed By: #### L 500.4050, L100.0100, L506.1000, L501.9520, L500.4100 #### [facility] [address] [place], [address] Hemoglobin (Bld) [Mass/Vol] 11.5 g/dL Low 12.0-15.0 [facility] Comment on above: Performed By: #### L 500.4050, L100.0100, L506.1000, L501.9520, L500.4100 #### [facility] [address] [place], [address] IG% 0.700 Normal 0.0-0.9 [facility] Comment on above: Result Comment: IG% - Immature Granulocytes (promyelocytes, myelocytes and metamyelocytes) > 1% indicates that a LEFT SHIFT is Present. Performed By: #### L 500.4050, L100.0100, L506.1000, L501.9520, L500.4100 #### [facility] [address] [place], [address] Lymphocytes/100 WBC (Bld) 20.7 % Normal 19-41 [facility] Comment on above: Performed By: #### L 500.4050, L100.0100, L506.1000, L501.9520, L500.4100 #### [facility] [address] [place], [address] MCH (RBC) [Entitic mass] 26.1 pg Low 27.0-32.0 [facility] Comment on above: Performed By: #### L 500.4050, L100.0100, L506.1000, L501.9520, L500.4100 #### [facility] [address] [place], [address] MCHC (RBC) [Mass/Vol] 31.9 g/dL Low 32-36 [facility] Comment on above: Performed By: #### L 500.4050, L100.0100, L506.1000, L501.9520, L500.4100 #### [facility] [address] [place], [address] MCV (RBC) [Entitic vol] 81.6 fL Normal 81-99 [facility] Comment on above: Performed By: #### L 500.4050, L100.0100, L506.1000, L501.9520, L500.4100 #### [facility] [address] [place], [address] Monocytes/100 WBC (Bld) 9.7 % Normal 0-10 [facility] Comment on above: Performed By: #### L 500.4050, L100.0100, L506.1000, L501.9520, L500.4100 #### [facility] [address] [place], [address] Neutrophils/100 WBC (Bld) 65.8 % Normal 47-70 [facility] Comment on above: Performed By: #### L 500.4050, L100.0100, L506.1000, L501.9520, L500.4100 #### [facility] [address] [place], [address] Nucleated RBC (Bld) [#/Vol] 0 10*3/uL Normal 0-5 [facility] Comment on above: Performed By: #### L 500.4050, L100.0100, L506.1000, L501.9520, L500.4100 #### [facility] [address] [place], [address] Platelet mean volume (Bld) [Entitic vol] 9.6 fL Normal 6.2-12.0 [facility] Comment on above: Performed By: #### L 500.4050, L100.0100, L506.1000, L501.9520, L500.4100 #### [facility] [address] [place], [address] Platelets (Bld) [#/Vol] 272 10*3/uL Normal 150-450 [facility] Comment on above: Performed By: #### L 500.4050, L100.0100, L506.1000, L501.9520, L500.4100 #### [facility] [address] [place], [address] RBC (Bld) [#/Vol] 4.41 10*6/uL Normal 4.2-5.4 [facility] Comment on above: Performed By: #### L 500.4050, L100.0100, L506.1000, L501.9520, L500.4100 #### [facility] [address] [place], [address] RDW SD 58.3 fl High 35.1-43.9 [facility] Comment on above: Performed By: #### L 500.4050, L100.0100, L506.1000, L501.9520, L500.4100 #### [facility] [address] [place], [address] WBC (Bld) [#/Vol] 5.8 10*3/uL Normal 4.4-11.[address] [facility] Comment on above: Performed By: #### L 500.4050, L100.0100, L506.1000, L501.9520, L500.4100 #### [facility] [address] [place], [address] Carbon dioxide, total [Moles /volume] in Central venous bloodOrdered By: Leandro Lua on 12-20-2024 CO2 [Moles/Vol] 26.1 mmol/L 21.0-32.0 [facility] Chloride assayOrdered By: Scottie Lua on 12-20-2024 Chloride [Moles/Vol] 94 mmol/L Low 98-108 [facility] Eosinophil percentageOrdered By: Leandro Lua on 12-20-2024 Eosinophils/100 WBC (Bld) 2.4 % 0-5 [facility] Erythrocyte distribution wid th ratioOrdered By: Leandro Lua on 12-20-2024 Erythrocyte distribution width (RBC) [Ratio] 20.0 % High 11.6-14.6 [facility] Erythrocyte distribution wid th standard deviationOrdered By: Leandro Lua on 12-20-2024 Erythrocyte distribution width (RBC) [Ratio] 58.3 fl High 35.1-43.9 [facility] Glomerular filtration rate ( GFR) estimation/1.73 sq m using serum, plasma, or whole bOrdered By: Leandro Lua on 12-20-2024 GFR/1.73 sq M.predicted among non-blacks MDRD (S/P/Bld) [Vol rate/Area] 92 mL/min/{1.73_m2} >60 [facility] Comment on above: mL/min/1.73m2 CKD-EP I Creatinine Equation (2020) Hematocrit Auto (Bld) [Volum e fraction]Ordered By: Leandro Lua 12-20-2024 Hematocrit (Bld) [Volume fraction] 36.0 % Low 37-47 [facility] Hemoglobin measurementOrdere d By: Leandro Lua 12-20-2024 Hemoglobin (Bld) [Mass/Vol] 11.5 g/dL Low 12.0-15.0 [facility] Immature granulocytes/100 WB C Auto (Bld)Ordered By: Leandro Lua 12-20-2024 Immature granulocytes/100 WBC (Bld) 0.700 % 0.0-0.9 [facility] Comment on above: IG% - Immature Granu locytes (promyelocytes, myelocytes and metamyelocytes) > 1% indicates that a LEFT SHIFT is Present. MCV (mean corpuscular volume ) determinationOrdered By: Leandro Lua 12-20-2024 MCV (RBC) [Entitic vol] 81.6 fL 81-99 [facility] Mean corpuscular hemoglobin (MCH) determinationOrdered By: Leandro Lua 12-20-2024 MCH (RBC) [Entitic mass] 26.1 pg Low 27.0-32.0 [facility] Mean corpuscular hemoglobin concentration (MCHC) determinationOrdered By: Leandro Lua 12-20-2024 MCHC (RBC) [Mass/Vol] 31.9 g/dL Low 32-36 [facility] Mean platelet volume determi nationOrdered By: Leandro Lua 12-20-2024 Platelet mean volume (Bld) [Entitic vol] 9.6 fL 6.2-12.0 [facility] Monocyte percentageOrdered B y: Leandro Lua on 12-20-2024 Monocytes/100 WBC (Bld) 9.7 % 0-10 [facility] Neutrophil percentageOrdered By: Leandro Lua on 12-20-2024 Neutrophils/100 WBC (Bld) 65.8 % 47-70 [facility] Nucleated red blood cell per centageOrdered By: Leandro Lua on 12-20-2024 Nucleated RBC/100 WBC (Bld) [Ratio] 0 % 0-5 [facility] Platelet countOrdered By: Scottie Lua on 12-20-2024 Platelets (Bld) [#/Vol] 272 10*3/uL 150-450 [facility] Potassium measurement (mass/ volume)Ordered By: Leandro Lua on 12-20-2024 Potassium (Unsp spec) [Mass/Vol] 3.9 mmol/L 3.3-5.1 [facility] RBC Auto (Bld) [#/Vol]Ordere d By: Leandro Lua on 12-20-2024 RBC (Bld) [#/Vol] 4.41 10*6/uL 4.2-5.4 [facility] Serum creatinine measurement (mass/volume)Ordered By: Leandro Lua on 12-20-2024 Creatinine [Mass/Vol] 0.50 mg/dL Low 0.70-1.20 [facility] Serum glucose measurement (m ass/volume)Ordered By: Leandro Lua on 12-20-2024 Glucose [Mass/Vol] 114 mg/dL High 70-[address] [facility] Serum or plasma calcium ashley urement (mass/volume)Ordered By: Leandro Lua on 12-20-2024 Calcium [Mass/Vol] 9.3 mg/dL 7.6-11.[address] [facility] Serum or plasma urea nitroge n measurement (mass/volume)Ordered By: Leandro Lua on 12-20-2024 Urea nitrogen [Mass/Vol] 15 mg/dL 4-19 [facility] Sodium levelOrdered By: Leandro Lua 12-20-2024 Sodium [Moles/Vol] 132 mmol/L Low 133-[address] [facility] White blood cell (WBC) count Ordered By: Leandro Lua on 12-20-2024 WBC (Bld) [#/Vol] 5.8 10*3/uL 4.4-11.[address] [facility] Absolute lymphocyte countOrd ered By: Leandro Lua on 12-13-2024 Lymphocytes Auto (Unsp spec) [#/Vol] 1.18 10*3/uL 0.83-4.51 [facility] Absolute neutrophil countOrd ered By: Leandro Lua on 12-13-2024 Neutrophils (Bld) [#/Vol] 5.6 10*3/uL 2.0-7.7 [facility] Anion gap in Serum or Plasma Ordered By: Leandro Lua on 12-13-2024 Anion gap [Moles/Vol] 13 mmol/L 5-15 [facility] Automated lymphocyte count a s percentage of total leukocytesOrdered By: Leandro Lua on 12-13-2024 Lymphocytes/100 WBC Auto (Unsp spec) 15.5 % Low 19-41 [facility] BUN/creatinine ratioOrdered By: Leandro Lua on 12-13-2024 Urea nitrogen/Creatinine [Mass ratio] 40.2 mg/mg High 10-20 [facility] Basophil percentageOrdered B y: Leandro Lua on 12-13-2024 Basophils/100 WBC (Bld) 0.5 % 0-1 [facility] Bilirubin, totalOrdered By: Leandro Lua on 12-13-2024 Bilirubin [Mass/Vol] 0.45 mg/dL 0.00-1.30 [facility] CBC W/Diff, Automatedon 11-16 Absolute Lymph 1.18 X10 3/uL Normal 0.83-4.51 [facility] Comment on above: Performed By: #### L 503.7505, L500.4050, L100.0100 ####[facility] [id number] [place], [address] Absolute Neut 5.6 X10 3/uL Normal 2.0-7.7 [facility] Comment on above: Performed By: #### L 503.7505, L500.4050, L100.0100 ####[facility] [id number] [place], [address] Basophils/100 WBC (Bld) 0.5 % Normal 0-1 [facility] Comment on above: Performed By: #### L 503.7505, L500.4050, L100.0100 ####[facility] [address] [place], [address] Eosinophils/100 WBC (Bld) 1.8 % Normal 0-5 [facility] Comment on above: Performed By: #### L 503.7505, L500.4050, L100.0100 ####[facility] [address] [place], [address] Erythrocyte distribution width (RBC) [Ratio] 19.5 % High 11.6-14.6 [facility] Comment on above: Performed By: #### L 503.7505, L500.4050, L100.0100 ####[facility] [address] [place], [address] Hematocrit (Bld) [Volume fraction] 36.2 % Low 37-47 [facility] Comment on above: Performed By: #### L 503.7505, L500.4050, L100.0100 ####[facility] [address] [place], [address] Hemoglobin (Bld) [Mass/Vol] 11.2 g/dL Low 12.0-15.0 [facility] Comment on above: Performed By: #### L 503.7505, L500.4050, L100.0100 ####[facility] [address] [place], [address] IG% 0.900 Normal 0.0-0.9 [facility] Comment on above: Result Comment: IG% - Immature Granulocytes (promyelocytes, myelocytes and metamyelocytes) > 1% indicates that a LEFT SHIFT is Present. Performed By: #### L 503.7505, L500.4050, L100.0100 ####[facility] [address] [place], [address] Lymphocytes/100 WBC (Bld) 15.5 % Low 19-41 [facility] Comment on above: Performed By: #### L 503.7505, L500.4050, L100.0100 ####[facility] [address] [place], [address] MCH (RBC) [Entitic mass] 25.5 pg Low 27.0-32.0 [facility] Comment on above: Performed By: #### L 503.7505, L500.4050, L100.0100 ####[facility] [address] [place], [address] MCHC (RBC) [Mass/Vol] 30.9 g/dL Low 32-36 [facility] Comment on above: Performed By: #### L 503.7505, L500.4050, L100.0100 ####[facility] [address] [place], [address] MCV (RBC) [Entitic vol] 82.5 fL Normal 81-99 [facility] Comment on above: Performed By: #### L 503.7505, L500.4050, L100.0100 ####[facility] [address] [place], [address] Monocytes/100 WBC (Bld) 7.1 % Normal 0-10 [facility] Comment on above: Performed By: #### L 503.7505, L500.4050, L100.0100 ####[facility] [address] [place], [address] Neutrophils/100 WBC (Bld) 74.2 % High 47-70 [facility] Comment on above: Performed By: #### L 503.7505, L500.4050, L100.0100 ####[facility] [address] [place], [address] Nucleated RBC (Bld) [#/Vol] 0 10*3/uL Normal 0-5 [facility] Comment on above: Performed By: #### L 503.7505, L500.4050, L100.0100 ####[facility] [address] [place], [address] Platelet mean volume (Bld) [Entitic vol] 10.0 fL Normal 6.2-12.0 [facility] Comment on above: Performed By: #### L 503.7505, L500.4050, L100.0100 ####[facility] [address] [place], [address] Platelets (Bld) [#/Vol] 313 10*3/uL Normal 150-450 [facility] Comment on above: Performed By: #### L 503.7505, L500.4050, L100.0100 ####[facility] [address] [place], [address] RBC (Bld) [#/Vol] 4.39 10*6/uL Normal 4.2-5.4 [facility] Comment on above: Performed By: #### L 503.7505, L500.4050, L100.0100 ####[facility] [address] [place], [address] RDW SD 56.0 fl High 35.1-43.9 [facility] Comment on above: Performed By: #### L 503.7505, L500.4050, L100.0100 ####[facility] [address] [place], [address] WBC (Bld) [#/Vol] 7.6 10*3/uL Normal 4.4-11.[address] [facility] Comment on above: Performed By: #### L 503.7505, L500.4050, L100.0100 ####[facility] [address] [place], [address] Carbon dioxide, total [Moles /volume] in Central venous bloodOrdered By: Leandro Lua on 12-13-2024 CO2 [Moles/Vol] 25.1 mmol/L 21.0-32.0 [facility] Chest PA and Lateralon 12-13 Chest PA and Lateral [facility] Imaging Services [address] [place] [address] Chest PA and Lateral MR#: [id number] Acct: [id number] Name: TORSTEN COLINDRES Rep #: [id number] : 1940 F 84 From: Yeimi Abreu PCP: Dr. Leandro Lua MD Status: REG CLI Study: Chest PA and Lateral Date of Exam: 12/13/24 Exam# [id number] Ordering Dr: Leandro Lua MD PROCEDURE: CHEST PA AND LATERAL 12/13/2024 REASON FOR EXAM: SOB TECHNIQUE: Frontal and lateral views of the chest. COMPARISON: Chest x-ray study dated 01/14/2024 FINDINGS: Hardware: Radiopaque right shoulder hardware is noted. The visualized portions appear to be in satisfactory position. Surgical clips are projected over the abdomen. A radiopaque density is projected over the lower thoracic spine which may be due to prior vertebroplasty. Clinical correlation is recommended. Heart: Heart size and configuration are within normal limits. Mediastinum: Pulmonary vasculature and hilar structures are unremarkable. Arteriosclerotic vascular disease of the aorta is noted. Trachea is midline. Lungs: There are linear density seen in the lung bases which are compatible with parenchymal scars and are similar when compared to the prior study. There was no atelectasis, consolidation, effusion or pneumonic infiltrate. Bones: Diffuse osteopenia of the bony thorax is seen. There is an S shaped scoliotic curvature of the spine. There is increased kyphotic curvature of the thoracolumbar junction. There has been previous vertebroplasty of what appears to be the T12 vertebral body. Clinical correlation is recommended. There is a decrease in height of what appears to be the T11 vertebral body. This is probably related to an osteoporotic compression fracture. This is worse when compared to the prior exam. Arthritic changes are seen involving the acromioclavicular joints bilaterally. RAD/Chest PA and Lateral IMPRESSION: No acute cardiopulmonary process is identified radiographically. Parenchymal scarring lung bases Arteriosclerotic vascular disease of the aorta. Diffuse osteopenia bony thorax. There is a decrease in height of the T11 and T12 vertebral bodies. These are probably related to osteoporotic compression fractures. MRI may be of value if clinically warranted. Reading Location: [id number] CC: Dr. Leandro Lua MD Tester Regulator: Signed Normal [facility] Chloride assayOrdered By: Scottie Lua on 12-13-2024 Chloride [Moles/Vol] 100 mmol/L 98-108 [facility] Comprehensive Metabolic Prof ilon 12-13-2024 Albumin [Mass/Vol] 4.0 g/dL Normal 3.4-4.[address] [facility] Comment on above: Performed By: #### L 503.7505, L500.4050, L100.0100 ####[facility] [address] [place], [address] Albumin/Globulin [Mass ratio] 1.5 {ratio} Normal 0.9-2.4 [facility] Comment on above: Performed By: #### L 503.7505, L500.4050, L100.0100 ####[facility] [address] [place], [address] ALK PHOS 97 U/L Normal 35-104 [facility] Comment on above: Performed By: #### L 503.7505, L500.4050, L100.0100 ####[facility] [address] [place], [address] ALT [Catalytic activity/Vol] 13 U/L Normal <=34 [facility] Comment on above: Performed By: #### L 503.7505, L500.4050, L100.0100 ####[facility] [address] [place], [address] AST [Catalytic activity/Vol] 20 U/L Normal <=31 [facility] Comment on above: Performed By: #### L 503.7505, L500.4050, L100.0100 ####[facility] [address] [place], [address] Bilirubin [Mass/Vol] 0.45 mg/dL Normal 0.00-1.30 [facility] Comment on above: Performed By: #### L 503.7505, L500.4050, L100.0100 ####[facility] [address] [place], [address] BUN/CRE 40.2 RATIO High 10-20 [facility] Comment on above: Performed By: #### L 503.7505, L500.4050, L100.0100 ####[facility] [address] [place], [address] Calcium [Mass/Vol] 9.4 mg/dL Normal 7.6-11.[address] [facility] Comment on above: Performed By: #### L 503.7505, L500.4050, L100.0100 ####[facility] [address] [place], [address] Chloride [Moles/Vol] 100 mmol/L Normal 98-108 [facility] Comment on above: Performed By: #### L 503.7505, L500.4050, L100.0100 ####[facility] [address] [place], [address] CO2 [Moles/Vol] 25.1 mmol/L Normal 21.0-32.0 [facility] Comment on above: Performed By: #### L 503.7505, L500.4050, L100.0100 ####[facility] [address] [place], [address] Creatinine [Mass/Vol] 0.47 mg/dL Low 0.70-1.20 [facility] Comment on above: Performed By: #### L 503.7505, L500.4050, L100.0100 ####[facility] [address] [place], [address] GAP 13 Normal 5-15 [facility] Comment on above: Performed By: #### L 503.7505, L500.4050, L100.0100 ####[facility] [address] [place], [address] GFR/1.73 sq M.predicted among non-blacks MDRD (S/P/Bld) [Vol rate/Area] 94 mL/min/{1.73_m2} Normal >60 [facility] Comment on above: Result Comment: mL/m in/1.73m2 CKD-EPI Creatinine Equation (2020) Performed By: #### L 503.7505, L500.4050, L100.0100 ####[facility] [address] [place], [address] Globulin (S) [Mass/Vol] 2.6 g/dL Normal 2.2-4.2 [facility] Comment on above: Performed By: #### L 503.7505, L500.4050, L100.0100 ####[facility] [address] [place], [address] Glucose [Mass/Vol] 110 mg/dL High 70-[address] [facility] Comment on above: Performed By: #### L 503.7505, L500.4050, L100.0100 ####[facility] [address] [place], [address] Potassium [Moles/Vol] 3.6 mmol/L Normal 3.3-5.1 [facility] Comment on above: Performed By: #### L 503.7505, L500.4050, L100.0100 ####[facility] [address] [place], [address] Sodium [Moles/Vol] 138 mmol/L Normal 133-[address] [facility] Comment on above: Performed By: #### L 503.7505, L500.4050, L100.0100 ####[facility] [address] [place], [address] T PROT 6.5 g/dL Normal 5.9-8.4 [facility] Comment on above: Performed By: #### L 503.7505, L500.4050, L100.0100 ####[facility] [address] [place], [address] Urea nitrogen [Mass/Vol] 19 mg/dL Normal 4-19 [facility] Comment on above: Performed By: #### L 503.7505, L500.4050, L100.0100 ####[facility] [address] [place], [address] Eosinophil percentageOrdered By: Leandro Lua on 12-13-2024 Eosinophils/100 WBC (Bld) 1.8 % 0-5 [facility] Erythrocyte distribution wid th ratioOrdered By: Leandro Lua on 12-13-2024 Erythrocyte distribution width (RBC) [Ratio] 19.5 % High 11.6-14.6 [facility] Erythrocyte distribution wid th standard deviationOrdered By: Leadnro Stoney on 12-13-2024 Erythrocyte distribution width (RBC) [Ratio] 56.0 fl High 35.1-43.9 [facility] Glomerular filtration rate ( GFR) estimation/1.73 sq m using serum, plasma, or whole bOrdered By: Leandro Lua on 12-13-2024 GFR/1.73 sq M.predicted among non-blacks MDRD (S/P/Bld) [Vol rate/Area] 94 mL/min/{1.73_m2} >60 [facility] Comment on above: mL/min/1.73m2 CKD-EP I Creatinine Equation (2020) Hematocrit Auto (Bld) [Volum e fraction]Ordered By: Leandro Lua on 12-13-2024 Hematocrit (Bld) [Volume fraction] 36.2 % Low 37-47 [facility] Hemoglobin measurementOrdere d By: Leandro Lua on 12-13-2024 Hemoglobin (Bld) [Mass/Vol] 11.2 g/dL Low 12.0-15.0 [facility] Immature granulocytes/100 WB C Auto (Bld)Ordered By: Leandro Lua on 12-13-2024 Immature granulocytes/100 WBC (Bld) 0.900 % 0.0-0.9 [facility] Comment on above: IG% - Immature Granu locytes (promyelocytes, myelocytes and metamyelocytes) > 1% indicates that a LEFT SHIFT is Present. L503.7505on 12-13-2024 Natriuretic peptide B (Bld) [Mass/Vol] 296 pg/mL Normal <=1800 [facility] Comment on above: Result Comment: Hear t Failure Unlikely: < 300 pg/mL Heart Failure Likely < 50 Years: > 450 pg/mL 50-75 Years: > 900 pg/mL >75 Years: > 1800 pg/mL Performed By: #### L 503.7505, L500.4050, L100.0100 ####[facility] [address], [place], [address] Laboratory - Chemistry and C hemistry - challengeOrdered By: Leandro Lua on 12-13-2024 AST [Catalytic activity/Vol] 20 U/L <32 [facility] MCV (mean corpuscular volume ) determinationOrdered By: Leandro Lua on 12-13-2024 MCV (RBC) [Entitic vol] 82.5 fL 81-99 [facility] Mean corpuscular hemoglobin (MCH) determinationOrdered By: Leandro Lua 12-13-2024 MCH (RBC) [Entitic mass] 25.5 pg Low 27.0-32.0 [facility] Mean corpuscular hemoglobin concentration (MCHC) determinationOrdered By: Leandro Lua 12-13-2024 MCHC (RBC) [Mass/Vol] 30.9 g/dL Low 32-36 [facility] Mean platelet volume determi nationOrdered By: Leandro Lua on 12-13-2024 Platelet mean volume (Bld) [Entitic vol] 10.0 fL 6.2-12.0 [facility] Monocyte percentageOrdered B y: Leandro Lua on 12-13-2024 Monocytes/100 WBC (Bld) 7.1 % 0-10 [facility] Natriuretic peptide.B prohor mele N-Terminal [Mass/volume] in Serum or PlasmaOrdered By: Leandro Lua on 12-13-2024 Natriuretic peptide.B prohormone N-Terminal [Mass/Vol] 296 pg/mL <1800 [facility] Comment on above: Heart Failure Unlike ly: < 300 pg/mLHeart Failure Likely< 50 Years: > 450 pg/mL50-75 Years: > 900 pg/mL>75 Years: > 1800 pg/mL Neutrophil percentageOrdered By: Leandro Lua on 12-13-2024 Neutrophils/100 WBC (Bld) 74.2 % High 47-70 [facility] Nucleated red blood cell per centageOrdered By: Leandro Lua on 12-13-2024 Nucleated RBC/100 WBC (Bld) [Ratio] 0 % 0-5 [facility] Platelet countOrdered By: Scottie Lua on 12-13-2024 Platelets (Bld) [#/Vol] 313 10*3/uL 150-450 [facility] Potassium measurement (mass/ volume)Ordered By: Leandro Lua on 12-13-2024 Potassium (Unsp spec) [Mass/Vol] 3.6 mmol/L 3.3-5.1 [facility] RBC Auto (Bld) [#/Vol]Ordere d By: Leandro Lua on 12-13-2024 RBC (Bld) [#/Vol] 4.39 10*6/uL 4.2-5.4 [facility] Serum creatinine measurement (mass/volume)Ordered By: Leandro Lua on 12-13-2024 Creatinine [Mass/Vol] 0.47 mg/dL Low 0.70-1.20 [facility] Serum globulin measurementOr dered By: Leandro Lua on 12-13-2024 Globulin (S) [Mass/Vol] 2.6 g/dL 2.2-4.2 [facility] Serum glucose measurement (m ass/volume)Ordered By: Leandro Lua on 12-13-2024 Glucose [Mass/Vol] 110 mg/dL High 70-[address] [facility] Serum or plasma alanine zapata otransferase (ALT) measurementOrdered By: Leandro Lua on 12-13-2024 ALT [Catalytic activity/Vol] 13 U/L <35 [facility] Serum or plasma albumin ashley urement (mass/volume)Ordered By: Leandro Lua on 12-13-2024 Albumin [Mass/Vol] 4.0 g/dL 3.4-4.[address] [facility] Serum or plasma albumin/glob ulin mass ratioOrdered By: Leandro Lua on 12-13-2024 Albumin/Globulin [Mass ratio] 1.5 {ratio} 0.9-2.4 [facility] Serum or plasma alkaline isaiah sphatase measurementOrdered By: Leandro Lua 12-13-2024 ALP [Catalytic activity/Vol] 97 U/L 35-104 [facility] Serum or plasma calcium ashley urement (mass/volume)Ordered By: Leandro Lua on 12-13-2024 Calcium [Mass/Vol] 9.4 mg/dL 7.6-11.[address] [facility] Serum or plasma urea nitroge n measurement (mass/volume)Ordered By: Leandro Lua 12-13-2024 Urea nitrogen [Mass/Vol] 19 mg/dL 4-19 [facility] Sodium levelOrdered By: Leandro Lua 12-13-2024 Sodium [Moles/Vol] 138 mmol/L 133-[address] [facility] Total proteinOrdered By: Leandro Lua 12-13-2024 Protein [Mass/Vol] 6.5 g/dL 5.9-8.[address] [facility] White blood cell (WBC) count Ordered By: Leandro Lua on 12-13-2024 WBC (Bld) [#/Vol] 7.6 10*3/uL 4.4-11.[address] [facility] Anion gap in Serum or Plasma Ordered By: Tonya Cortez on 12-06-2024 Anion gap [Moles/Vol] 10 mmol/L 5-15 [facility] BUN/creatinine ratioOrdered By: Tonya Cortez on 12-06-2024 Urea nitrogen/Creatinine [Mass ratio] 43.1 mg/mg High 10-20 [facility] Basic Metabolic Profile (BMP )on 12-06-2024 BUN/CRE 43.1 RATIO High 10-20 [facility] Comment on above: Performed By: #### L 500.4050, L100.0100, L506.1000, L501.9520, L500.4100 #### [facility] [address] [place], [address] Calcium [Mass/Vol] 8.5 mg/dL Normal 7.6-11.[address] [facility] Comment on above: Performed By: #### L 500.4050, L100.0100, L506.1000, L501.9520, L500.4100 #### [facility] [address] [place], [address] Chloride [Moles/Vol] 105 mmol/L Normal 98-108 [facility] Comment on above: Performed By: #### L 500.4050, L100.0100, L506.1000, L501.9520, L500.4100 #### [facility] [address] [place], [address] CO2 [Moles/Vol] 24.1 mmol/L Normal 21.0-32.0 [facility] Comment on above: Performed By: #### L 500.4050, L100.0100, L506.1000, L501.9520, L500.4100 #### [facility] [address] [place], [address] Creatinine [Mass/Vol] 0.37 mg/dL Low 0.70-1.20 [facility] Comment on above: Performed By: #### L 500.4050, L100.0100, L506.1000, L501.9520, L500.4100 #### [facility] [address] [place], [address] ECRCL 59.61 ml/min Normal 50-250 [facility] Comment on above: Performed By: #### L 500.4050, L100.0100, L506.1000, L501.9520, L500.4100 #### [facility] [address] [place], [address] GAP 10 Normal 5-15 [facility] Comment on above: Performed By: #### L 500.4050, L100.0100, L506.1000, L501.9520, L500.4100 #### [facility] [address] [place], [address] GFR/1.73 sq M.predicted among non-blacks MDRD (S/P/Bld) [Vol rate/Area] 99 mL/min/{1.73_m2} Normal >60 [facility] Comment on above: Result Comment: mL/m in/1.73m2 CKD-EPI Creatinine Equation (2020) Performed By: #### L 500.4050, L100.0100, L506.1000, L501.9520, L500.4100 #### [facility] [address] [place], [address] Glucose [Mass/Vol] 114 mg/dL High 70-[address] [facility] Comment on above: Performed By: #### L 500.4050, L100.0100, L506.1000, L501.9520, L500.4100 #### [facility] [address] [place], [address] Potassium [Moles/Vol] 3.3 mmol/L Normal 3.3-5.1 [facility] Comment on above: Performed By: #### L 500.4050, L100.0100, L506.1000, L501.9520, L500.4100 #### [facility] [address] [place], [address] Sodium [Moles/Vol] 138 mmol/L Normal 133-[address] [facility] Comment on above: Performed By: #### L 500.4050, L100.0100, L506.1000, L501.9520, L500.4100 #### [facility] [address] [place], [address] Urea nitrogen [Mass/Vol] 16 mg/dL Normal 4-19 [facility] Comment on above: Performed By: #### L 500.4050, L100.0100, L506.1000, L501.9520, L500.4100 #### [facility] [address] [place], [address] CBC-Complete Blood Cnt No Di ffon 12-06-2024 Erythrocyte distribution width (RBC) [Ratio] 17.7 % High 11.6-14.6 [facility] Comment on above: Performed By: #### L 500.4050, L100.0100, L506.1000, L501.9520, L500.4100 #### [facility] [address] [place], [address] Hematocrit (Bld) [Volume fraction] 31.9 % Low 37-47 [facility] Comment on above: Performed By: #### L 500.4050, L100.0100, L506.1000, L501.9520, L500.4100 #### [facility] [address] [place], [address] Hemoglobin (Bld) [Mass/Vol] 9.5 g/dL Low 12.0-15.0 [facility] Comment on above: Performed By: #### L 500.4050, L100.0100, L506.1000, L501.9520, L500.4100 #### [facility] [address] [place], [address] MCH (RBC) [Entitic mass] 24.7 pg Low 27.0-32.0 [facility] Comment on above: Performed By: #### L 500.4050, L100.0100, L506.1000, L501.9520, L500.4100 #### [facility] [address] [place], [address] MCHC (RBC) [Mass/Vol] 29.8 g/dL Low 32-36 [facility] Comment on above: Performed By: #### L 500.4050, L100.0100, L506.1000, L501.9520, L500.4100 #### [facility] [address] [place], [address] MCV (RBC) [Entitic vol] 83.1 fL Normal 81-99 [facility] Comment on above: Performed By: #### L 500.4050, L100.0100, L506.1000, L501.9520, L500.4100 #### [facility] [address] [place], [address] Platelet mean volume (Bld) [Entitic vol] 10.1 fL Normal 6.2-12.0 [facility] Comment on above: Performed By: #### L 500.4050, L100.0100, L506.1000, L501.9520, L500.4100 #### [facility] [address] [place], [address] Platelets (Bld) [#/Vol] 225 10*3/uL Normal 150-450 [facility] Comment on above: Performed By: #### L 500.4050, L100.0100, L506.1000, L501.9520, L500.4100 #### [facility] [address] [place], [address] RBC (Bld) [#/Vol] 3.84 10*6/uL Low 4.2-5.4 [facility] Comment on above: Performed By: #### L 500.4050, L100.0100, L506.1000, L501.9520, L500.4100 #### [facility] [address] [place], [address] RDW SD 49.1 fl High 35.1-43.9 [facility] Comment on above: Performed By: #### L 500.4050, L100.0100, L506.1000, L501.9520, L500.4100 #### [facility] [address] [place], [address] WBC (Bld) [#/Vol] 5.3 10*3/uL Normal 4.4-11.[address] [facility] Comment on above: Performed By: #### L 500.4050, L100.0100, L506.1000, L501.9520, L500.4100 #### [facility] [address] [place], [address] Carbon dioxide, total [Moles /volume] in Central venous bloodOrdered By: Tonya Cortez on 12-06-2024 CO2 [Moles/Vol] 24.1 mmol/L 21.0-32.0 [facility] Chloride assayOrdered By: Colleen Cortez on 12-06-2024 Chloride [Moles/Vol] 105 mmol/L 98-108 [facility] Erythrocyte distribution wid th ratioOrdered By: Tonya Cortez on 12-06-2024 Erythrocyte distribution width (RBC) [Ratio] 17.7 % High 11.6-14.6 [facility] Erythrocyte distribution wid th standard deviationOrdered By: Tonya Cortez on 12-06-2024 Erythrocyte distribution width (RBC) [Ratio] 49.1 fl High 35.1-43.9 [facility] Glomerular filtration rate ( GFR) estimation/1.73 sq m using serum, plasma, or whole bOrdered By: Tonya Cortez on 12-06-2024 GFR/1.73 sq M.predicted among non-blacks MDRD (S/P/Bld) [Vol rate/Area] 99 mL/min/{1.73_m2} >60 [facility] Comment on above: mL/min/1.73m2 CKD-EP I Creatinine Equation (2020) Hematocrit Auto (Bld) [Volum e fraction]Ordered By: Tonya Cortez on 12-06-2024 Hematocrit (Bld) [Volume fraction] 31.9 % Low 37-47 [facility] Hemoglobin measurementOrdere d By: Tonya Cortez on 12-06-2024 Hemoglobin (Bld) [Mass/Vol] 9.5 g/dL Low 12.0-15.0 [facility] MCV (mean corpuscular volume ) determinationOrdered By: Tonya Cortez on 12-06-2024 MCV (RBC) [Entitic vol] 83.1 fL 81-99 [facility] MR/POSTOP.ANEon 12-06-2024 MR/POSTOP.ANE [facility] Medical Records Department [address] [place] [address] Anesthesia Postop Eval I 12/06/24 1632 MR#: [id number] Acct: [id number] Name: TORSTEN COLINDRES Gunnar Rep #: [id number] : 1940 84 From: Farida Villalobos CRNA PCP: Dr. Leandro Lua MD Status:ADM IN Y Race: C Location: [place] [address] Anesthesia: Postop Eval I Current Vital Signs Temperature: 97.5 F Pulse Rate: 67 Blood Pressure: 125/74 Respiratory Rate: 18 Pulse Ox: 95 Assessment Airway patent: Yes Spontaneous unlabored respirations: Yes nausea: No Vomiting: No Anesthesia Complication: No Fluid Hydration Crystalloid volume administer (ml): 1,500 Total IV fluid infused: 1,500 Progress Note Anesthesia document: Postop Eval 1 completed: Yes 12/06/24 163 Date Farida Villalobos CRNA Cosigner Signature: Date CC: Signed Normal [facility] [id number] 12-06-2024 MR/POSTOPAN2 [facility] Medical Records Department [address] [place] [address] Anesthesia Postop Eval II 12/06/24 1732 MR#: [id number] Acct: [id number] Name: TORSTEN COLINDRES Rep #: [id number] : 1940 84 From: Von Falcon MD PCP: Dr. 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 Spontaneous unlabored Yes 12/06/24 16:32 TWITCHELL OPERATOR.JGEN respirations Mental status Awake 11/29/24 16:13 nausea No 12/06/24 16:32 TWITCHELL OPERATOR.JGEN Vomiting No 12/06/24 16:32 TWITCHELL OPERATOR.JGEN Anesthesia Postop Eval I: Fluid Summary Crystalloid volume administer 1,500 12/06/24 16:32 TWITCHELL OPERATOR.JGEN (ml) Colloids volume administered ( ml) Blood Product volume administered (ml) Total IV fluid infused 1,500 12/06/24 16:32 TWITCHELL OPERATOR.JGEN Anesthesia Postop Eval I: Summary Notes Anesthesia Complication No 12/06/24 16:32 TWITCHELL OPERATOR.JGEN Anesthesia Complication Comment: Post-operative progress note Anesthesia: Postop Eval II Evaluation Mental status: Awake Pain Level: 2 nausea: No Vomiting: No 12/06/241731 Date Von Falcon MD Cosigner Signature: Date CC: Signed [facility] Mean corpuscular hemoglobin (MCH) determinationOrdered By: Tonya Cortez on 12-06-2024 MCH (RBC) [Entitic mass] 24.7 pg Low 27.0-32.0 [facility] Mean corpuscular hemoglobin concentration (MCHC) determinationOrdered By: Tonya Cortez on 12-06-2024 MCHC (RBC) [Mass/Vol] 29.8 g/dL Low 32-36 [facility] Mean platelet volume determi nationOrdered By: Tonya Cortez on 12-06-2024 Platelet mean volume (Bld) [Entitic vol] 10.1 fL 6.2-12.0 [facility] Operative Reporton Operative Report [facility] Medical Records Department [address] [place] [address] Operative Report 12/06/24 1708 MR#: [id number] Acct: [id number] Name: TORSTEN COLINDRES Rep #: [id number] : 1940 84 From: Haile Ramirez MD PCP: Dr. 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 The risks, benefits, and alternatives were discussed in detail, and the patient expressed understanding and agreed to proceed. The patient was positioned in the prone position on the fluoroscopy table. Standard monitors were applied.. Vitals were closely monitored throughout the procedure to ensure patient safety and stability. Conscious sedation was used to maintain comfort, but the patient was conversant throughout. The skin overlying the L1 vertebra and surrounding area was sterilized with duraprep and draped in a sterile fashion. Anesthesia was administered with 0.25% Bupivocaine injected at the procedural site to ensure local numbness and comfort. Standard monitors were applied, and conscious sedation was used. Vitals were closely monitored throughout the procedure to ensure patient safety and stability. A left sided unipedicular approach was used to access the L1 vertebra. Under fluoroscopic guidance, the trochar was introduced through the pedicle and advanced into the vertebral body. The introducer was then advanced through the trochar (curved) under AP and lateral fluoroscopic guidance as needed. A sheath was then advanced into place and the curved introducer removed. The balloon was then inserted under fluoroscopy. It was inflated to a maximum pressure of 200 PSI, allowing for partial confucianism of vertebral height without compromising vertebral wall integrity. After optimal inflation was achieved, the balloons were deflated and removed, creating a cavity for cement injection. Cement was prepared and injected under fluoroscopic guidance, with 3 cc injected. Flow was monitored closely, and real-time fluoroscopy confirmed even cement distribution within the vertebral body without extravasation. The trochar were removed, and the access site was bandaged. Hemostasis was achieved, and sterile dressings were applied. No cement was noted to leak back after removal of the trochars. No complications were encountered during the procedure. Patient was seen in pacu. Moving extremities without significant back pain limitation. Surgical Findings: n/a Complications Complications: No 12/06/24 5194 Cosigner Signature (if applicable): CC: Dr. Eleonora Sharp MD; Dr. Tonya Cortez DO; Dr. Haile Davis MD; Dr. Haile Ramirez MD; Dr. Nestor Amado MD; Dr. Leandro Lua MD Signed Normal [facility] Platelet countOrdered By: Colleen Cortez on 12-06-2024 Platelets (Bld) [#/Vol] 225 10*3/uL 150-450 [facility] Potassium measurement (mass/ volume)Ordered By: Tonya Cortez on 12-06-2024 Potassium (Unsp spec) [Mass/Vol] 3.3 mmol/L 3.3-5.1 [facility] RBC Auto (Bld) [#/Vol]Ordere d By: Tonya Cortez on 12-06-2024 RBC (Bld) [#/Vol] 3.84 10*6/uL Low 4.2-5.4 [facility] Serum creatinine measurement (mass/volume)Ordered By: Tonya Cortez on 12-06-2024 Creatinine [Mass/Vol] 0.37 mg/dL Low 0.70-1.20 [facility] Serum glucose measurement (m ass/volume)Ordered By: Tonya Cortez on 12-06-2024 Glucose [Mass/Vol] 114 mg/dL High 70-[address] [facility] Serum or plasma calcium ashley urement (mass/volume)Ordered By: Tonya Cortez on 12-06-2024 Calcium [Mass/Vol] 8.5 mg/dL 7.6-11.[address] [facility] Serum or plasma urea nitroge n measurement (mass/volume)Ordered By: Tonya Cortez on 12-06-2024 Urea nitrogen [Mass/Vol] 16 mg/dL 4-19 [facility] Sodium levelOrdered By: Megan Cortez on 12-06-2024 Sodium [Moles/Vol] 138 mmol/L 133-[address] [facility] Spine 1 View Any Levelon Spine 1 View Any Level [facility] Imaging Services [address] [place], [place] [address] Spine 1 View Any Level MR#: [id number] Acct: [id number] Name: TORSTEN COLINDRES Rep #: [id number] : 1940 F 84 From: Nestor Abreu PCP: Dr. Leandro Lua MD Status: ADM IN Study: Spine 1 View Any Level Date of Exam: 12/06/24 Exam# [id number] Ordering Dr: Haile Ramirez MD PROCEDURE: SPINE 1 VIEW ANY LEVEL 12/06/2024 REASON FOR EXAM: L1 FX TECHNIQUE: 2 fluoroscopic images were submitted. Fluoroscopy time was 106 seconds. Peak skin radiation dose was 38.7 mGy. COMPARISON: None FINDINGS: See impression RAD/Spine 1 View Any Level IMPRESSION: Kyphoplasty performed at the L1 compression fracture. See operative report for further details. Reading Location: [facility] CC: Dr. Haile Ramirez MD; Dr. Leandro Lua MD Tester Regulator: Signed Normal [facility] White blood cell (WBC) count Ordered By: Tonya Cortez on 12-06-2024 WBC (Bld) [#/Vol] 5.3 10*3/uL 4.4-11.[address] [facility] Consultation - Infectious Dx on 12-05-2024 Consultation - Infectious Dx [facility] Medical Records Department [address] [place] [address] Consultation - Infectious Dx 12/05/24 1038 MR#: [id number] Acct: [id number] Name: TORSTEN COLINDRES Rep #: [id number] : 1940 84 From: Nestor Amado MD PCP: Dr. Leandro Lua MD Status:ADM IN Location: [place] [id number] Assessment Plan Assessment/Plan (1) Intractable low back pain: (2) Infection due to ESBL-producing Escherichia coli: PLAN: UTI on meropenem, will continue. Po bactrim would be an option, but will avoid for now given NSAIDs and planned surgery. Will follow, thank you HPI Consult Data Date of Consult: 12/05/24 HPI Narrative Reason for Consultation: uti HPI Narrative: TORSTEN COLINDRES, is a 84 F who presented 11/25 with acute worsening of lower back pain. Had T12-L1 fracture about 8 years ago. Pain worsened after lifting something at home, did not improve despite steroids, NSAIDS, and muscle relaxers from PCP. Came to ED, admitted. Had constipation, now improved with bowel regimen. Surgery planned, but now with 2-3 days dysuria. Started on zosyn now changed to fabrizio due to (+) esbl. Full ROS performed and neg except as noted above. [facility] Medical History Hemorrhoids Cancer Arthritis Hypertension GERD (gastroesophageal reflux disease) Constipation BPPV (benign paroxysmal positional vertigo) Compression fracture of L1 lumbar vertebra Home Medications ???Medication ???Instructions ???Recorded ???Last Taken ???Type calcium carbonate (Calcium 600) 600 mg PO DAILY 04/24/22 11/24/24 History calcium carbonate (Tums) 200 mg PO BID PRN dyspepsia 11/23/24 History fluticasone propionate 50 2 spray intranasal DAILY 04/24/22 Unknown History mcg/actuation nasal spray,suspension metoprolol succinate 25 mg 25 mg PO DAILY 04/24/22 11/24/24 H istory tablet,extended release 24 hr multivitamin 1 tab PO DAILY 04/24/22 11/24/24 H istory acetaminophen 650 mg 650 mg PO Q8H PRN pain 11/25/24 History tablet,extended release (Arthritis Pain Relief (acetaminophen) ER) baclofen 10 mg tablet 10 mg PO QHS MUSCLE SPASM 11/25/24 11/24/24 History cholecalciferol (vitamin D3) 25 25 mcg PO DAILY 11/25/24 11/24/24 History mcg (1,000 unit) capsule (Vitamin D3) cranberry 500 mg capsule 500 mg PO DAILY 11/25/24 Unknown H istory dorzolamide 22.3 mg-timolol 6.8 1 drp ophthalmic (eye) BID 5 Unknown History mg/mL eye drops guaifenesin 600 mg tablet, 600 mg PO BID PRN congestion 11/25 Unknown History extended release 12 hr (Mucinex) hydrochlorothiazide 25 mg tablet 25 mg PO DAILY 11/25/24 11/24/24 H istory ketorolac 0.5 % eye drops 1 drp ophthalmic (eye) TID 5 11/25/24 History magnesium oxide 400 mg (241.3 mg 400 mg PO DAILY 11/25/24 11/24/24 History magnesium) tablet meclizine 12.5 mg tablet 12.5 mg PO TID PRN dizziness 11/25 Unknown History melatonin 5 mg tablet 5 mg PO QHS PRN sleep 11/25/24 Unk nown History naproxen 250 mg tablet 250 mg PO BID 11/25/24 11/24/24 Hi story pantoprazole 40 mg tablet,delayed 40 mg PO DAILY 11/25/24 11/24/24 History release prednisone 10 mg tablet See Taper PO .COMPLEX 11/25/2407/10 History Allergy/AdvReac Type Severity Reaction Status Date / Time norfloxacin (From Noroxin) Allergy unknown Verified 11/25/24 09:26 polymyxin B Allergy Swelling Verified 11/25/24 09:26 levofloxacin (From Levaquin) AdvReac Diarrhea Verified 11/25/24 09:26 phenylephrine (From Sudafed AdvReac Other Verified 11/25/24 09:26 PE) Surgical History History of gastric bypass History of hysterectomy Hx of shoulder replacement History of knee replacement Social History Smoking Status: Former smoker Physical Exam Const alert, oriented x3 and no apparent distress General Appearance: cooperative HEENT normocephalic and head/scalp atraumatic Eyes PERRL and EOMs intact bilaterally Neck supple and No nodes Resp normal air movement and clear to auscultation bilaterally Cardio regular rate and regular rhythm GI soft to palpation, non-tender and non-distended Extremity General Extremity: Negative for edema Skin no rashes or lesions noted Neuro CN's II-XII intact bilaterally Lab / Micro Data Attestation: I reviewed the patient's lab results. 12/04/24 06:38 12/04/24 06:38 Micro: Microbiology 12/03/24 21:40 Urine, Clean Catch Urine Culture - Final ESBL Escherichia coli 12/05/24 1042 Cosigner Signature (if applicable): CC: Dr. Leandro Lua MD Signed Normal [facility] Urine Cultureon 12-05-2024 UR Copy of report sent to Infection Control Printer [id number] 12/05/24 [employer]ata49 HELLEN. Urine Culture RESULTS CALLED TO LOUISA Cordero 12/05/24 Melva Spann. REPORT READ BACK . ESBL Escherichia coli Enterprise Count >100,000 MARKER ESBL producing OrganismA MARKER ESBL producing OrganismA Amikacin Islt MAXI 4 S Ampicillin Islt MAXI >=32 Ampicillin+Sulbac Islt MAXI 4 S Cefepime Islt MAXI 16 R Eravacycline Islt MAXI <=0.12 S cefTRIAXone Islt MAXI >=64 R Ciprofloxacin Islt MAXI >=4 R B-Lactamase Extended Susc Islt POS Gentamicin Islt MAXI <=1 S Imipenem Islt MAXI <=0.25 S levoFLOXacin Islt MAXI >=8 R Meropenem Islt MAXI <=0.25 S Nitrofurantoin Islt MAXI <=16 S Pip+Tazo Islt MAXI <=4 S Tobramycin Islt MAXI <=1 S TMP SMX Islt MAXI <=20 S Normal [facility] Comment on above: Performed By: #### M 100.2200, L400.0001 ####[facility] [address] [place], [address] Absolute lymphocyte countOrd ered By: Haile Davis on 12-04-2024 Lymphocytes Auto (Unsp spec) [#/Vol] 1.14 10*3/uL 0.83-4.51 [facility] Absolute neutrophil countOrd ered By: Haile Davis on 12-04-2024 Neutrophils (Bld) [#/Vol] 4.1 10*3/uL 2.0-7.7 [facility] Automated lymphocyte count a s percentage of total leukocytesOrdered By: Haile Davis on 12-04-2024 Lymphocytes/100 WBC Auto (Unsp spec) 19.1 % 19-41 [facility] Basic Metabolic Profile (BMP )on 12-04-2024 BUN/CRE 42.5 RATIO High 10-20 [facility] Comment on above: Performed By: #### L 500.4050, L100.0100, L506.1000, L501.9520, L500.4100 #### [facility] [address] [place], [address] Calcium [Mass/Vol] 8.7 mg/dL Normal 7.6-11.[address] [facility] Comment on above: Performed By: #### L 500.4050, L100.0100, L506.1000, L501.9520, L500.4100 #### [facility] [address] [place], [address] Chloride [Moles/Vol] 103 mmol/L Normal 98-108 [facility] Comment on above: Performed By: #### L 500.4050, L100.0100, L506.1000, L501.9520, L500.4100 #### [facility] [address] [place], [address] CO2 [Moles/Vol] 25.5 mmol/L Normal 21.0-32.0 [facility] Comment on above: Performed By: #### L 500.4050, L100.0100, L506.1000, L501.9520, L500.4100 #### [facility] [address] [place], [address] Creatinine [Mass/Vol] 0.45 mg/dL Low 0.70-1.20 [facility] Comment on above: Performed By: #### L 500.4050, L100.0100, L506.1000, L501.9520, L500.4100 #### [facility] [address] [place], [address] ECRCL 59.61 ml/min Normal 50-250 [facility] Comment on above: Performed By: #### L 500.4050, L100.0100, L506.1000, L501.9520, L500.4100 #### [facility] [address] [place], [address] GAP 8 Normal 5-15 [facility] Comment on above: Performed By: #### L 500.4050, L100.0100, L506.1000, L501.9520, L500.4100 #### [facility] [address] [place], [address] GFR/1.73 sq M.predicted among non-blacks MDRD (S/P/Bld) [Vol rate/Area] 95 mL/min/{1.73_m2} Normal >60 [facility] Comment on above: Result Comment: mL/m in/1.73m2 CKD-EPI Creatinine Equation (2020) Performed By: #### L 500.4050, L100.0100, L506.1000, L501.9520, L500.4100 #### [facility] [address] [place], [address] Glucose [Mass/Vol] 116 mg/dL High 70-[address] [facility] Comment on above: Performed By: #### L 500.4050, L100.0100, L506.1000, L501.9520, L500.4100 #### [facility] [address] [place], [address] Potassium [Moles/Vol] 4.6 mmol/L Normal 3.3-5.1 [facility] Comment on above: Performed By: #### L 500.4050, L100.0100, L506.1000, L501.9520, L500.4100 #### [facility] [address] [place], [address] Sodium [Moles/Vol] 137 mmol/L Normal 133-[address] [facility] Comment on above: Performed By: #### L 500.4050, L100.0100, L506.1000, L501.9520, L500.4100 #### [facility] [address] [place], [address] Urea nitrogen [Mass/Vol] 19 mg/dL Normal 4-19 [facility] Comment on above: Performed By: #### L 500.4050, L100.0100, L506.1000, L501.9520, L500.4100 #### [facility] [address] [place], [address] Basophil percentageOrdered B y: Haile Davis on 12-04-2024 Basophils/100 WBC (Bld) 0.8 % 0-1 [facility] CBC W/Diff, Automatedon 04-2 Absolute Lymph 1.14 X10 3/uL Normal 0.83-4.51 [facility] Comment on above: Performed By: #### L 500.4050, L100.0100, L506.1000, L501.9520, L500.4100 #### [facility] [address] [place], [address] Absolute Neut 4.1 X10 3/uL Normal 2.0-7.7 [facility] Comment on above: Performed By: #### L 500.4050, L100.0100, L506.1000, L501.9520, L500.4100 #### [facility] [address] [place], [address] Basophils/100 WBC (Bld) 0.8 % Normal 0-1 [facility] Comment on above: Performed By: #### L 500.4050, L100.0100, L506.1000, L501.9520, L500.4100 #### [facility] [address] [place], [address] Eosinophils/100 WBC (Bld) 2.9 % Normal 0-5 [facility] Comment on above: Performed By: #### L 500.4050, L100.0100, L506.1000, L501.9520, L500.4100 #### [facility] [address] [place], [address] Erythrocyte distribution width (RBC) [Ratio] 17.2 % High 11.6-14.6 [facility] Comment on above: Performed By: #### L 500.4050, L100.0100, L506.1000, L501.9520, L500.4100 #### [facility] [address] [place], [address] Hematocrit (Bld) [Volume fraction] 32.8 % Low 37-47 [facility] Comment on above: Performed By: #### L 500.4050, L100.0100, L506.1000, L501.9520, L500.4100 #### [facility] [address] [place], [address] Hemoglobin (Bld) [Mass/Vol] 9.7 g/dL Low 12.0-15.0 [facility] Comment on above: Performed By: #### L 500.4050, L100.0100, L506.1000, L501.9520, L500.4100 #### [facility] [address] [place], [address] IG% 1.500 High 0.0-0.9 [facility] Comment on above: Result Comment: IG% - Immature Granulocytes (promyelocytes, myelocytes and metamyelocytes) > 1% indicates that a LEFT SHIFT is Present. Performed By: #### L 500.4050, L100.0100, L506.1000, L501.9520, L500.4100 #### [facility] [address] [place], [address] Lymphocytes/100 WBC (Bld) 19.1 % Normal 19-41 [facility] Comment on above: Performed By: #### L 500.4050, L100.0100, L506.1000, L501.9520, L500.4100 #### [facility] [address] [place], [address] MCH (RBC) [Entitic mass] 24.7 pg Low 27.0-32.0 [facility] Comment on above: Performed By: #### L 500.4050, L100.0100, L506.1000, L501.9520, L500.4100 #### [facility] [address] [place], [address] MCHC (RBC) [Mass/Vol] 29.6 g/dL Low 32-36 [facility] Comment on above: Performed By: #### L 500.4050, L100.0100, L506.1000, L501.9520, L500.4100 #### [facility] [address] [place], [address] MCV (RBC) [Entitic vol] 83.5 fL Normal 81-99 [facility] Comment on above: Performed By: #### L 500.4050, L100.0100, L506.1000, L501.9520, L500.4100 #### [facility] [address] [place], [address] Monocytes/100 WBC (Bld) 7.6 % Normal 0-10 [facility] Comment on above: Performed By: #### L 500.4050, L100.0100, L506.1000, L501.9520, L500.4100 #### [facility] [address] [place], [address] Neutrophils/100 WBC (Bld) 68.1 % Normal 47-70 [facility] Comment on above: Performed By: #### L 500.4050, L100.0100, L506.1000, L501.9520, L500.4100 #### [facility] [address] [place], [address] Nucleated RBC (Bld) [#/Vol] 0 10*3/uL Normal 0-5 [facility] Comment on above: Performed By: #### L 500.4050, L100.0100, L506.1000, L501.9520, L500.4100 #### [facility] [address] [place], [address] Platelet mean volume (Bld) [Entitic vol] 10.1 fL Normal 6.2-12.0 [facility] Comment on above: Performed By: #### L 500.4050, L100.0100, L506.1000, L501.9520, L500.4100 #### [facility] [address] [place], [address] Platelets (Bld) [#/Vol] 235 10*3/uL Normal 150-450 [facility] Comment on above: Performed By: #### L 500.4050, L100.0100, L506.1000, L501.9520, L500.4100 #### [facility] [address] [place], [address] RBC (Bld) [#/Vol] 3.93 10*6/uL Low 4.2-5.4 [facility] Comment on above: Performed By: #### L 500.4050, L100.0100, L506.1000, L501.9520, L500.4100 #### [facility] [address] [place], [address] RDW SD 48.8 fl High 35.1-43.9 [facility] Comment on above: Performed By: #### L 500.4050, L100.0100, L506.1000, L501.9520, L500.4100 #### [facility] [address] [place], [address] WBC (Bld) [#/Vol] 6.0 10*3/uL Normal 4.4-11.[address] [facility] Comment on above: Performed By: #### L 500.4050, L100.0100, L506.1000, L501.9520, L500.4100 #### [facility] [address] [place], [address] Eosinophil percentageOrdered By: Haile Davis on 12-04-2024 Eosinophils/100 WBC (Bld) 2.9 % 0-5 [facility] Immature granulocytes/100 WB C Auto (Bld)Ordered By: Haile Davis on 12-04-2024 Immature granulocytes/100 WBC (Bld) 1.500 % High 0.0-0.9 [facility] Comment on above: IG% - Immature Granu locytes (promyelocytes, myelocytes and metamyelocytes) > 1% indicates that a LEFT SHIFT is Present. Monocyte percentageOrdered B y: Haile Davis on 12-04-2024 Monocytes/100 WBC (Bld) 7.6 % 0-10 [facility] Neutrophil percentageOrdered By: Haile Davis on 12-04-2024 Neutrophils/100 WBC (Bld) 68.1 % 47-70 [facility] Nucleated red blood cell per centageOrdered By: Haile Davis on 12-04-2024 Nucleated RBC/100 WBC (Bld) [Ratio] 0 % 0-5 [facility] Bilirubin Test strip Ql (U)O rdered By: Haile Davis on 12-03-2024 Bilirubin Ql (U) Negative Negative [facility] Ketones Test strip Ql (U)Ord ered By: Haile Davis on 12-03-2024 Ketones Ql (U) Negative Negative [facility] Microscopic analysis of urin e for red blood cells (RBC)Ordered By: Haile Davis on 12-03-2024 Microscopic analysis of urine for red blood cells (RBC) 0 SEEN /hpf 0-5 [facility] Mucus LM Ql (Urine sed)Order ed By: Haile Davis on 12-03-2024 Mucus Ql (Urine sed) 0 SEEN /hpf [facility] Nitrite Test strip Ql (U)Ord ered By: Haile Davis on 12-03-2024 Nitrite Ql (U) Negative Negative [facility] Protein Test strip Ql (U)Ord ered By: Haile Davis on 12-03-2024 Protein Ql (U) 100 mg/dl High Negative [facility] Squamous epithelial cells de tection in urine sediment by light microscopyOrdered By: Haile Davis on 12-03-2024 Epithelial cells.squamous LM Ql (Urine sed) 0 SEEN /hpf 5-10 [facility] Urinalysis, Completeon 12-03 BACTERIA 4+ /hpf Normal None Seen [facility] Comment on above: Order Comment: CLEAN CATCH Performed By: #### M 100.2200, L400.0001 ####[facility] [address] [place], [address] WBC >100 SEEN Normal 0-5 [facility] Comment on above: Order Comment: CLEAN CATCH Result Comment: Micr oscopic field is filled. Other elements may be obscured. Performed By: #### M 100.2200, L400.0001 ####[facility] [address] [place], [address] EPI,SQUAMOUS 0 SEEN Normal 5-10 [facility] Comment on above: Order Comment: CLEAN CATCH Performed By: #### M 100.2200, L400.0001 ####[facility] [address] [place], [address] Mucus Ql (Urine sed) 0 SEEN Normal [facility] Comment on above: Order Comment: CLEAN CATCH Performed By: #### M 100.2200, L400.0001 ####[facility] [address] [place], [place], [address] RBC 0 SEEN Normal 0-5 [facility] Comment on above: Order Comment: CLEAN CATCH Performed By: #### M 100.2200, L400.0001 ####[facility] [address] [place], [address] Urine clarityOrdered By: Feliberto Davis on 12-03-2024 Clarity (U) Cloudy Clear [facility] Urine color determinationOrd ered By: Haile Davis on 12-03-2024 Color (U) Yellow Yellow [facility] Urine cultureOrdered By: Feliberto Davis on 12-03-2024 Bacteria identified Cx Nom (U) ESBL Escherichia coli Abnormal [facility] Urine glucose detectionOrder ed By: Haile Davis on 12-03-2024 Glucose Ql (U) Normal mg/dl Normal [facility] Urine leukocyte esterase det ection by dipstickOrdered By: Haile Davis on 12-03-2024 Leukocyte esterase Test strip Ql (U) 500 /ul High Negative [facility] Urine pHOrdered By: Haile Davis on 12-03-2024 pH (U) 6.0 [pH] 5.0 - 8.0 [facility] Urine sediment bacteria coun t by microscopy (number/high power field)Ordered By: Haile Davis on 12-03-2024 Bacteria LM.HPF (Urine sed) [#/Area] 4 /[HPF] None Seen [facility] Urine specific gravity measu rementOrdered By: Haile Davis on 12-03-2024 Specific gravity (U) [Rel density] 1.020 1.002-1.030 [facility] Urine urobilinogen measureme ntOrdered By: Haile Davis on 12-03-2024 Urobilinogen Ql (U) Normal mg/dl Normal [facility] White blood cell countOrdere d By: Haile Davis on 12-03-2024 White blood cell count >100 SEEN /hpf 0-5 [facility] Comment on above: Microscopic field is filled. Other elements may be obscured. Basic Metabolic Profile (BMP )on 12-01-2024 BUN/CRE 31.5 RATIO High 10-20 [facility] Comment on above: Performed By: #### L 500.4050, L100.0100, L506.1000, L501.9520, L500.4100 #### [facility] [address] [place], [address] Calcium [Mass/Vol] 8.5 mg/dL Normal 7.6-11.[address] [facility] Comment on above: Performed By: #### L 500.4050, L100.0100, L506.1000, L501.9520, L500.4100 #### [facility] [address] [place], [address] Chloride [Moles/Vol] 103 mmol/L Normal 98-108 [facility] Comment on above: Performed By: #### L 500.4050, L100.0100, L506.1000, L501.9520, L500.4100 #### [facility] [address] [place], [address] CO2 [Moles/Vol] 22.7 mmol/L Normal 21.0-32.0 [facility] Comment on above: Performed By: #### L 500.4050, L100.0100, L506.1000, L501.9520, L500.4100 #### [facility] [address] [place], [address] Creatinine [Mass/Vol] 0.41 mg/dL Low 0.70-1.20 [facility] Comment on above: Performed By: #### L 500.4050, L100.0100, L506.1000, L501.9520, L500.4100 #### [facility] [address] [place], [address] ECRCL 59.61 ml/min Normal 50-250 [facility] Comment on above: Performed By: #### L 500.4050, L100.0100, L506.1000, L501.9520, L500.4100 #### [facility] [address] [place], [address] GAP 9 Normal 5-15 [facility] Comment on above: Performed By: #### L 500.4050, L100.0100, L506.1000, L501.9520, L500.4100 #### [facility] [address] [place], [address] GFR/1.73 sq M.predicted among non-blacks MDRD (S/P/Bld) [Vol rate/Area] 97 mL/min/{1.73_m2} Normal >60 [facility] Comment on above: Result Comment: mL/m in/1.73m2 CKD-EPI Creatinine Equation (2020) Performed By: #### L 500.4050, L100.0100, L506.1000, L501.9520, L500.4100 #### [facility] [address] [place], [address] Glucose [Mass/Vol] 91 mg/dL Normal 70-[address] [facility] Comment on above: Performed By: #### L 500.4050, L100.0100, L506.1000, L501.9520, L500.4100 #### [facility] [address] [place], [address] Potassium [Moles/Vol] 4.0 mmol/L Normal 3.3-5.1 [facility] Comment on above: Result Comment: Hemo lysis present, Results??could be affected. ?? Performed By: #### L 500.4050, L100.0100, L506.1000, L501.9520, L500.4100 #### [facility] [address] [place], [address] Sodium [Moles/Vol] 136 mmol/L Normal 133-[address] [facility] Comment on above: Performed By: #### L 500.4050, L100.0100, L506.1000, L501.9520, L500.4100 #### [facility] [address] [place], [address] Urea nitrogen [Mass/Vol] 13 mg/dL Normal 4-19 [facility] Comment on above: Performed By: #### L 500.4050, L100.0100, L506.1000, L501.9520, L500.4100 #### [facility] [address] [place], [address] CBC W/Diff, Automatedon 11-14 Absolute Lymph 0.97 X10 3/uL Normal 0.83-4.51 [facility] Comment on above: Performed By: #### L 500.4050, L100.0100, L506.1000, L501.9520, L500.4100 #### [facility] [address] [place], [address] Absolute Neut 5.3 X10 3/uL Normal 2.0-7.7 [facility] Comment on above: Performed By: #### L 500.4050, L100.0100, L506.1000, L501.9520, L500.4100 #### [facility] [address] [place], [address] Basophils/100 WBC (Bld) 0.6 % Normal 0-1 [facility] Comment on above: Performed By: #### L 500.4050, L100.0100, L506.1000, L501.9520, L500.4100 #### [facility] [address] [place], [address] Eosinophils/100 WBC (Bld) 2.4 % Normal 0-5 [facility] Comment on above: Performed By: #### L 500.4050, L100.0100, L506.1000, L501.9520, L500.4100 #### [facility] [address] [place], [address] Erythrocyte distribution width (RBC) [Ratio] 16.0 % High 11.6-14.6 [facility] Comment on above: Performed By: #### L 500.4050, L100.0100, L506.1000, L501.9520, L500.4100 #### [facility] [address] [place], [address] Hematocrit (Bld) [Volume fraction] 33.1 % Low 37-47 [facility] Comment on above: Performed By: #### L 500.4050, L100.0100, L506.1000, L501.9520, L500.4100 #### [facility] [address] [place], [address] Hemoglobin (Bld) [Mass/Vol] 10.1 g/dL Low 12.0-15.0 [facility] Comment on above: Performed By: #### L 500.4050, L100.0100, L506.1000, L501.9520, L500.4100 #### [facility] [address] [place], [address] IG% 1.100 High 0.0-0.9 [facility] Comment on above: Result Comment: IG% - Immature Granulocytes (promyelocytes, myelocytes and metamyelocytes) > 1% indicates that a LEFT SHIFT is Present. Performed By: #### L 500.4050, L100.0100, L506.1000, L501.9520, L500.4100 #### [facility] [address] [place], [address] Lymphocytes/100 WBC (Bld) 13.6 % Low 19-41 [facility] Comment on above: Performed By: #### L 500.4050, L100.0100, L506.1000, L501.9520, L500.4100 #### [facility] [address] [place], [address] MCH (RBC) [Entitic mass] 24.8 pg Low 27.0-32.0 [facility] Comment on above: Performed By: #### L 500.4050, L100.0100, L506.1000, L501.9520, L500.4100 #### [facility] [address] [place], [address] MCHC (RBC) [Mass/Vol] 30.5 g/dL Low 32-36 [facility] Comment on above: Performed By: #### L 500.4050, L100.0100, L506.1000, L501.9520, L500.4100 #### [facility] [address] [place], [address] MCV (RBC) [Entitic vol] 81.1 fL Normal 81-99 [facility] Comment on above: Performed By: #### L 500.4050, L100.0100, L506.1000, L501.9520, L500.4100 #### [facility] [address] [place], [address] Monocytes/100 WBC (Bld) 8.2 % Normal 0-10 [facility] Comment on above: Performed By: #### L 500.4050, L100.0100, L506.1000, L501.9520, L500.4100 #### [facility] [address] [place], [address] Neutrophils/100 WBC (Bld) 74.1 % High 47-70 [facility] Comment on above: Performed By: #### L 500.4050, L100.0100, L506.1000, L501.9520, L500.4100 #### [facility] [address] [place], [address] Nucleated RBC (Bld) [#/Vol] 0 10*3/uL Normal 0-5 [facility] Comment on above: Performed By: #### L 500.4050, L100.0100, L506.1000, L501.9520, L500.4100 #### [facility] [address] [place], [address] Platelet mean volume (Bld) [Entitic vol] 10.3 fL Normal 6.2-12.0 [facility] Comment on above: Performed By: #### L 500.4050, L100.0100, L506.1000, L501.9520, L500.4100 #### [facility] [address] [place], [address] Platelets (Bld) [#/Vol] 220 10*3/uL Normal 150-450 [facility] Comment on above: Performed By: #### L 500.4050, L100.0100, L506.1000, L501.9520, L500.4100 #### [facility] [address] [place], [address] RBC (Bld) [#/Vol] 4.08 10*6/uL Low 4.2-5.4 [facility] Comment on above: Performed By: #### L 500.4050, L100.0100, L506.1000, L501.9520, L500.4100 #### [facility] [address] [place], [address] RDW SD 46.3 fl High 35.1-43.9 [facility] Comment on above: Performed By: #### L 500.4050, L100.0100, L506.1000, L501.9520, L500.4100 #### [facility] [address] [place], [address] WBC (Bld) [#/Vol] 7.1 10*3/uL Normal 4.4-11.[address] [facility] Comment on above: Performed By: #### L 500.4050, L100.0100, L506.1000, L501.9520, L500.4100 #### [facility] [address] [place], [address] 12 Lead EKGon 11-29-2024 12 Lead EKG [facility] [address] [address] 12 Lead EKG 11/29/24 1442 MR#: [id number] Acct: [id number] Name: TORSTEN COLINDRES Rep #: [id number] : 1940 84 From: Manju Martinez MD Attending Dr: Dr. Tonya Cortez, DO Status: ADM I N Ordering Dr: Von Falcon MD Date: 11/29/24 Location: [facility] [place] Sex: F C Admitted: 12/02/24 Test Reason : ARRYTHMIA Blood Pressure : */* mmHG Vent. Rate : 116 BPM Atrial Rate : * BPM P-R Int : * ms QRS Dur : 86 ms QT Int : 358 ms P-R-T Axes : * 11 -15 degrees QTcB Int : 497 ms normal sinus rhythm with sinus tachycardia Otherwise normal ECG Confirmed by Manju Martinez ([id number]), city editor JHONY HOLLIDAY ([id number]) on 12/04/2024 8:50:00 AM Referred By: ERIKA Confirmed By: Manju Martinez 12/04/24 0850 Date Manju Martinez MD CC: Dr. Von Falcon MD; Dr. Tonya Cortez DO; Dr. Leandro Lua MD Signed Normal [facility] Basic Metabolic Profile (BMP )on 11-29-2024 BUN/CRE 26.8 RATIO High 10-20 [facility] Comment on above: Performed By: #### L 500.2500, L100.0100 ####[facility] [address] [place], [address] Calcium [Mass/Vol] 8.2 mg/dL Normal 7.6-11.[address] [facility] Comment on above: Performed By: #### L 500.2500, L100.0100 ####[facility] [address] [place], [address] Chloride [Moles/Vol] 102 mmol/L Normal 98-108 [facility] Comment on above: Performed By: #### L 500.2500, L100.0100 ####[facility] [address] [place], [address] CO2 [Moles/Vol] 26.0 mmol/L Normal 21.0-32.0 [facility] Comment on above: Performed By: #### L 500.2500, L100.0100 ####[facility] [address] [place], [address] Creatinine [Mass/Vol] 0.44 mg/dL Low 0.70-1.20 [facility] Comment on above: Performed By: #### L 500.2500, L100.0100 ####[facility] [address] [place], [address] ECRCL 60.79 ml/min Normal 50-250 [facility] Comment on above: Performed By: #### L 500.2500, L100.0100 ####[facility] [address] [place], [address] GAP 8 Normal 5-15 [facility] Comment on above: Performed By: #### L 500.2500, L100.0100 ####[facility] [address] [place], [address] GFR/1.73 sq M.predicted among non-blacks MDRD (S/P/Bld) [Vol rate/Area] 95 mL/min/{1.73_m2} Normal >60 [facility] Comment on above: Result Comment: mL/m in/1.73m2 CKD-EPI Creatinine Equation (2020) Performed By: #### L 500.2500, L100.0100 ####[facility] [address] [place], [address] Glucose [Mass/Vol] 112 mg/dL High 70-[address] [facility] Comment on above: Performed By: #### L 500.2500, L100.0100 ####[facility] [address] [place], [address] Potassium [Moles/Vol] 3.6 mmol/L Normal 3.3-5.1 [facility] Comment on above: Performed By: #### L 500.2500, L100.0100 ####[facility] [address] [place], [address] Sodium [Moles/Vol] 136 mmol/L Normal 133-[address] [facility] Comment on above: Performed By: #### L 500.2500, L100.0100 ####[facility] [address] [place], [address] Urea nitrogen [Mass/Vol] 12 mg/dL Normal 4-19 [facility] Comment on above: Performed By: #### L 500.2500, L100.0100 ####[facility] [address] [place], [address] CBC W/Diff, Automatedon 11-14 Absolute Lymph 0.98 X10 3/uL Normal 0.83-4.51 [facility] Comment on above: Performed By: #### L 500.2500, L100.0100 ####[facility] [address] [place], [address] Absolute Neut 4.1 X10 3/uL Normal 2.0-7.7 [facility] Comment on above: Performed By: #### L 500.2500, L100.0100 ####[facility] [address] [place], [address] Basophils/100 WBC (Bld) 0.5 % Normal 0-1 [facility] Comment on above: Performed By: #### L 500.2500, L100.0100 ####[facility] [address] [place], [address] Eosinophils/100 WBC (Bld) 4.0 % Normal 0-5 [facility] Comment on above: Performed By: #### L 500.2500, L100.0100 ####[facility] [address] [place], [address] Erythrocyte distribution width (RBC) [Ratio] 15.9 % High 11.6-14.6 [facility] Comment on above: Performed By: #### L 500.2500, L100.0100 ####[facility] [address] [place], [address] Hematocrit (Bld) [Volume fraction] 30.5 % Low 37-47 [facility] Comment on above: Performed By: #### L 500.2500, L100.0100 ####[facility] [address] [place], [address] Hemoglobin (Bld) [Mass/Vol] 9.4 g/dL Low 12.0-15.0 [facility] Comment on above: Performed By: #### L 500.2500, L100.0100 ####[facility] [address] [place], [address] IG% 0.800 Normal 0.0-0.9 [facility] Comment on above: Result Comment: IG% - Immature Granulocytes (promyelocytes, myelocytes and metamyelocytes) > 1% indicates that a LEFT SHIFT is Present. Performed By: #### L 500.2500, L100.0100 ####[facility] [address] [place], [address] Lymphocytes/100 WBC (Bld) 16.3 % Low 19-41 [facility] Comment on above: Performed By: #### L 500.2500, L100.0100 ####[facility] [address] [place], [address] MCH (RBC) [Entitic mass] 24.4 pg Low 27.0-32.0 [facility] Comment on above: Performed By: #### L 500.2500, L100.0100 ####[facility] [address] [place], [address] MCHC (RBC) [Mass/Vol] 30.8 g/dL Low 32-36 [facility] Comment on above: Performed By: #### L 500.2500, L100.0100 ####[facility] [address] [place], [address] MCV (RBC) [Entitic vol] 79.2 fL Low 81-99 [facility] Comment on above: Performed By: #### L 500.2500, L100.0100 ####[facility] [address] [place], [address] Monocytes/100 WBC (Bld) 11.1 % High 0-10 [facility] Comment on above: Performed By: #### L 500.2500, L100.0100 ####[facility] [address] [place], [address] Neutrophils/100 WBC (Bld) 67.3 % Normal 47-70 [facility] Comment on above: Performed By: #### L 500.2500, L100.0100 ####[facility] [address] [place], [address] Nucleated RBC (Bld) [#/Vol] 0 10*3/uL Normal 0-5 [facility] Comment on above: Performed By: #### L 500.2500, L100.0100 ####[facility] [address] [place], [address] Platelet mean volume (Bld) [Entitic vol] 9.7 fL Normal 6.2-12.0 [facility] Comment on above: Performed By: #### L 500.2500, L100.0100 ####[facility] [address] [place], [address] Platelets (Bld) [#/Vol] 231 10*3/uL Normal 150-450 [facility] Comment on above: Performed By: #### L 500.2500, L100.0100 ####[facility] [address], [address] RBC (Bld) [#/Vol] 3.85 10*6/uL Low 4.2-5.4 [facility] Comment on above: Performed By: #### L 500.2500, L100.0100 ####[facility] [address] [place], [address] RDW SD 45.0 fl High 35.1-43.9 [facility] Comment on above: Performed By: #### L 500.2500, L100.0100 ####[facility] [address] [place], [address] WBC (Bld) [#/Vol] 6.0 10*3/uL Normal 4.4-11.[address] [facility] Comment on above: Performed By: #### L 500.2500, L100.0100 ####[facility] [address] [place], [address] MR/POSTOP.ANEon 11-29-2024 MR/POSTOP.[facility] Medical Records Department [address] [place] [address] Anesthesia Postop Eval I 11/29/24 1438 MR#: [id number] Acct: [id number] Name: DESTINTORSTEN ORELLANA Gunnar Rep #: [id number] : 1940 84 From: Roxana Lorenzo CRNA PCP: Dr. Leandro Lua MD Status:ADM LLOYD Y Race: C Location: [place] [address] Anesthesia: Postop Eval I Current Vital Signs Temperature: 99.9 F Pulse Rate: 93 Blood Pressure: 123/64 Respiratory Rate: 16 Pulse Ox: 95 Oxygen Delivery Method: Room Air Assessment Airway patent: Yes Spontaneous unlabored respirations: Yes Mental status: Awake nausea: No Vomiting: No Anesthesia Complication: No Fluid Hydration Crystalloid volume administer (ml): 300 Total IV fluid infused: 300 Progress Note Anesthesia document: Postop Eval 1 completed: Yes 11/29/24 1439 Date Roxana Lorenzo TWITCHELL OPERATOR Cosigner Signature: Date CC: Signed Normal [facility] MR/OWZTNAJL8kx 11-29-2024 MR/POSTOPAN2 [facility] Medical Records Department [address] [place] [address] Anesthesia Postop Eval II 11/29/24 1611 MR#: [id number] Acct: [id number] Name: TORSTEN COLINDRES Rep #: [id number] : 1940 84 From: Von Falcon MD PCP: Dr. Leandro Lua MD Status:ADM LLOYD Y Race: C Location: [place]3 [id number] Anesthesia Postop Eval I Sum Postop Eval Completion status Anesthesia document: Postop Eval 1 completed: Yes Anesthesia Postop Eval I Summary Anesthesia Postop Eval I Summary: Anesthesia Postop Eval I: Assessment Summary Airway patent Yes 11/29/24 14:39 TWITCHELL OPERATOR.JDEF Spontaneous unlabored Yes 11/29/24 14:39 TWITCHELL OPERATOR.JDEF respirations Mental status Awake 11/29/24 14:39 TWITCHELL OPERATOR.JDEF nausea No 11/29/24 14:39 TWITCHELL OPERATOR.JDEF Vomiting No 11/29/24 14:39 TWITCHELL OPERATOR.JDEF Anesthesia Postop Eval I: Fluid Summary Crystalloid volume administer 300 11/29/24 14:39 TWITCHELL OPERATOR.JDEF (ml) Colloids volume administered ( ml) Blood Product volume administered (ml) Total IV fluid infused 300 11/29/24 14:39 TWITCHELL OPERATOR.JDEF Anesthesia Postop Eval I: Summary Notes Anesthesia Complication No 11/29/24 14:39 TWITCHELL OPERATOR.JDEF Anesthesia Complication Comment: Post-operative progress note Anesthesia: Postop Eval II Evaluation Mental status: Awake Pain Level: 0 nausea: No Vomiting: No Progress Note Post-operative progress note: Surgery canceled. Patient doing well in PACU. Had short runs of SVT in operating room prior to procedure. Postop EKG showed possible atrial fibrillation with rapid ventricular response. Hospitalist is aware and is going to manage the care on [facility] 3 11/29/24 1613 Date Von Falcon MD Cosigner Signature: Date CC: Signed Normal [facility] Magnesiumon 11-29-2024 Magnesium [Mass/Vol] 1.6 mg/dL Normal 1.5-2.2 [facility] Comment on above: Performed By: #### L 501.5200 ####[facility] [address] [place], [address] Magnesium measurement (mass/ volume)Ordered By: Haile Davis on 11-29-2024 Magnesium (Unsp spec) [Mass/Vol] 1.6 mg/dL 1.5-2.2 [facility] Urinalysis, Completeon 11-28 RBC 0-5 SEEN Normal 0-5 [facility] Comment on above: Order Comment: COLLE CTOR TO SPECIFY Performed By: #### L 500.4050, L100.0100, L506.1000, L501.9520, L500.4100 #### [facility] [address] [place], [address] BACTERIA 1+ /hpf Normal None Seen [facility] Comment on above: Order Comment: COLLE CTOR TO SPECIFY Performed By: #### L 500.4050, L100.0100, L506.1000, L501.9520, L500.4100 #### [facility] [address] [place], [address] WBC 25-50 SEEN Normal 0-5 [facility] Comment on above: Order Comment: COLLE CTOR TO SPECIFY Performed By: #### L 500.4050, L100.0100, L506.1000, L501.9520, L500.4100 #### [facility] [address] [place], [address] EPI,SQUAMOUS 0-5 SEEN Normal 5-10 [facility] Comment on above: Order Comment: COLLE CTOR TO SPECIFY Performed By: #### L 500.4050, L100.0100, L506.1000, L501.9520, L500.4100 #### [facility] [address] [place], [address] Mucus Ql (Urine sed) 0 SEEN Normal [facility] Comment on above: Order Comment: COLLE CTOR TO SPECIFY Performed By: #### L 500.4050, L100.0100, L506.1000, L501.9520, L500.4100 #### [facility] [address] [place], [address] Basic Metabolic Profile (BMP )on 11-27-2024 BUN/CRE 34.3 RATIO High 10-20 [facility] Comment on above: Performed By: #### L 500.4050, L100.0100, L506.1000, L501.9520, L500.4100 #### [facility] [address] [place], [address] Calcium [Mass/Vol] 8.3 mg/dL Normal 7.6-11.[address] [facility] Comment on above: Performed By: #### L 500.4050, L100.0100, L506.1000, L501.9520, L500.4100 #### [facility] [address] [place], [address] Chloride [Moles/Vol] 102 mmol/L Normal 98-108 [facility] Comment on above: Performed By: #### L 500.4050, L100.0100, L506.1000, L501.9520, L500.4100 #### [facility] [address] [place], [address] CO2 [Moles/Vol] 25.3 mmol/L Normal 21.0-32.0 [facility] Comment on above: Performed By: #### L 500.4050, L100.0100, L506.1000, L501.9520, L500.4100 #### [facility] [address] [place], [address] Creatinine [Mass/Vol] 0.45 mg/dL Low 0.70-1.20 [facility] Comment on above: Performed By: #### L 500.4050, L100.0100, L506.1000, L501.9520, L500.4100 #### [facility] [address] [place], [address] ECRCL 60.79 ml/min Normal 50-250 [facility] Comment on above: Performed By: #### L 500.4050, L100.0100, L506.1000, L501.9520, L500.4100 #### [facility] [address] [place], [address] GAP 8 Normal 5-15 [facility] Comment on above: Performed By: #### L 500.4050, L100.0100, L506.1000, L501.9520, L500.4100 #### [facility] [address] [place], [address] GFR/1.73 sq M.predicted among non-blacks MDRD (S/P/Bld) [Vol rate/Area] 95 mL/min/{1.73_m2} Normal >60 [facility] Comment on above: Result Comment: mL/m in/1.73m2 CKD-EPI Creatinine Equation (2020) Performed By: #### L 500.4050, L100.0100, L506.1000, L501.9520, L500.4100 #### [facility] [address] [place], [address] Glucose [Mass/Vol] 126 mg/dL High 70-[address] [facility] Comment on above: Performed By: #### L 500.4050, L100.0100, L506.1000, L501.9520, L500.4100 #### [facility] [address] [place], [address] Potassium [Moles/Vol] 3.4 mmol/L Normal 3.3-5.1 [facility] Comment on above: Performed By: #### L 500.4050, L100.0100, L506.1000, L501.9520, L500.4100 #### [facility] [address] [place], [address] Sodium [Moles/Vol] 135 mmol/L Normal 133-[address] [facility] Comment on above: Performed By: #### L 500.4050, L100.0100, L506.1000, L501.9520, L500.4100 #### [facility] [address] [place], [address] Urea nitrogen [Mass/Vol] 15 mg/dL Normal 4-19 [facility] Comment on above: Performed By: #### L 500.4050, L100.0100, L506.1000, L501.9520, L500.4100 #### [facility] [address] [place], [address] CBC-Complete Blood Cnt No Di ffon 11-27-2024 Erythrocyte distribution width (RBC) [Ratio] 15.5 % High 11.6-14.6 [facility] Comment on above: Performed By: #### L 500.4050, L100.0100, L506.1000, L501.9520, L500.4100 #### [facility] [address] [place], [address] Hematocrit (Bld) [Volume fraction] 30.3 % Low 37-47 [facility] Comment on above: Performed By: #### L 500.4050, L100.0100, L506.1000, L501.9520, L500.4100 #### [facility] [address] [place], [address] Hemoglobin (Bld) [Mass/Vol] 9.3 g/dL Low 12.0-15.0 [facility] Comment on above: Performed By: #### L 500.4050, L100.0100, L506.1000, L501.9520, L500.4100 #### [facility] [address] [place], [address] MCH (RBC) [Entitic mass] 24.6 pg Low 27.0-32.0 [facility] Comment on above: Performed By: #### L 500.4050, L100.0100, L506.1000, L501.9520, L500.4100 #### [facility] [address] [place], [address] MCHC (RBC) [Mass/Vol] 30.7 g/dL Low 32-36 [facility] Comment on above: Performed By: #### L 500.4050, L100.0100, L506.1000, L501.9520, L500.4100 #### [facility] [address] [place], [address] MCV (RBC) [Entitic vol] 80.2 fL Low 81-99 [facility] Comment on above: Performed By: #### L 500.4050, L100.0100, L506.1000, L501.9520, L500.4100 #### [facility] [address] [place], [address] Platelet mean volume (Bld) [Entitic vol] 9.7 fL Normal 6.2-12.0 [facility] Comment on above: Performed By: #### L 500.4050, L100.0100, L506.1000, L501.9520, L500.4100 #### [facility] [address] [place], [address] Platelets (Bld) [#/Vol] 234 10*3/uL Normal 150-450 [facility] Comment on above: Performed By: #### L 500.4050, L100.0100, L506.1000, L501.9520, L500.4100 #### [facility] [address] [place], [address] RBC (Bld) [#/Vol] 3.78 10*6/uL Low 4.2-5.4 [facility] Comment on above: Performed By: #### L 500.4050, L100.0100, L506.1000, L501.9520, L500.4100 #### [facility] [address] [place], [address] RDW SD 45.0 fl High 35.1-43.9 [facility] Comment on above: Performed By: #### L 500.4050, L100.0100, L506.1000, L501.9520, L500.4100 #### [facility] [address] [place], [address] WBC (Bld) [#/Vol] 5.7 10*3/uL Normal 4.4-11.[address] [facility] Comment on above: Performed By: #### L 500.4050, L100.0100, L506.1000, L501.9520, L500.4100 #### [facility] [address] [place], [address] Ferritinon 11-27-2024 Ferritin [Mass/Vol] 19 ng/mL Low 22-378 [facility] Comment on above: Performed By: #### L 503.6030, L503.6550 ####[facility] [address] [place], [address] Iron measurement (mass/mass) Ordered By: Haile Davis on 11-27-2024 Iron (Unsp spec) [Mass/Mass] 21 ug/dL Low 50-170 [facility] Iron+Iron Binding Capacityon 11-27-2024 Iron [Mass/Vol] 21 ug/dL Low 50-170 [facility] Comment on above: Performed By: #### L 503.6030, L503.6550 ####[facility] [address] [place], [address] IRON SATURATION 6.0 Low 13-59 [facility] Comment on above: Performed By: #### L 503.6030, L503.6550 ####[facility] [address] [place], [address] TIBC 357 ug/dL Normal 250-450 [facility] Comment on above: Performed By: #### L 503.6030, L503.6550 ####[facility] [address] [place], [address] UIBC 336 ug/dL Normal 228-428 [facility] Comment on above: Performed By: #### L 503.6030, L503.6550 ####[facility] [address] [place], [address] No Panel InformationOrdered By: Haile Davis on 11-27-2024 Unsaturated Iron Binding Capacity 336 ug/dL 228-428 [facility] Serum or plasma ferritin ludmila surement (mass/volume)Ordered By: Haile Davis on 11-27-2024 Ferritin [Mass/Vol] 19 ng/mL Low 22-378 [facility] Serum or plasma iron saturat ion measurement (mass fraction)Ordered By: Haile Davis on 11-27-2024 Iron saturation [Mass fraction] 6.0 % Low 13-59 [facility] Spine Lumbar (Routine)on Spine Lumbar (Routine) [facility] Services [address] [place] [address] Spine Lumbar (Routine) MR#: [id number] Acct: [id number] Name: TORSTEN COLINDRES Rep #: [id number] : 1940 F 84 From: Ron Lane MD PCP: Dr. Leandro Lua MD Status: ADM LLOYD Study: Spine Lumbar (Routine) Date of Exam: 11/27/24 Exam# [id number] Ordering Dr: Haile Ramirez MD PROCEDURE: SPINE LUMBAR (ROUTINE) 11/27/2024 REASON FOR EXAM: BACK PAIN TECHNIQUE: Multiplanar multisequential imaging was performed without IV contrast administration. COMPARISON: CT 11/25/2024 FINDINGS: Vertebrae: Moderate loss of height of the T12 vertebral body with wedging deformity without marrow edema consistent with a chronic compression fracture. Mild loss of height and wedging deformity of the L1 vertebral body with faint T2 hyperintensity along the inferior endplate consistent with an acute/subacute compression fracture. No retropulsion into the spinal canal. Alignment: Mild levoscoliosis centered at L2. Conus Medullaris: L1. L1-2: Mild bilateral facet hypertrophy with fluid in facet joints consistent with instability and moderate ligamentum flavum hypertrophy. 2 mm of retrolisthesis of L1 on L2 with a mild bilobed disc protrusion produces moderate spinal stenosis and mild bilateral neural foraminal stenosis. L2-3: Mild bilateral facet hypertrophy with fluid in the facet joints consistent with instability and severe ligamentum flavum hypertrophy. 5 mm retrolisthesis of L2 on L3 with a mild bilobed disc protrusion produces severe spinal stenosis and moderate bilateral neural foraminal stenosis. L3-4: Mild bilateral facet hypertrophy and moderate ligamentum flavum hypertrophy. Mild bilobed disc protrusion produces mild spinal stenosis and mild bilateral neural foraminal stenosis. L4-5: Moderate bilateral facet hypertrophy and severe ligamentum flavum hypertrophy. 2 mm of anterolisthesis of L4 on L5 with a moderate broad disc protrusion produces severe spinal stenosis and moderate bilateral neural foraminal stenosis. L5-S1: Mild broad disc protrusion produces mild spinal stenosis and moderate bilateral neural foraminal stenosis with abutment of the exiting L5 nerve roots bilaterally. Sacrum: Unremarkable. MRI/Spine Lumbar (Routine) IMPRESSION: Acute/subacute mild compression fracture of the inferior aspect of the L1 vertebral body without retropulsion into the spinal canal. Chronic moderate wedge compression fracture of T12 without retropulsion in the spinal canal. Mild levoscoliosis with degenerative disc disease as described above. Reading Location: [id number] CC: Dr. Haile Ramirez MD; Dr. Leandro Lua MD Tester Regulator: Signed Normal [facility] Spine Thoracic (Routine)on 0 11-27-2024 Spine Thoracic (Routine) [facility] Imaging Services [address] [place], [place] [address] Spine Thoracic (Routine) MR#: [id number] Acct: [id number] Name: TORSTEN COLINDRES Rep #: [id number] : 1940 F 84 From: Ron Lane MD PCP: Dr. Leandro Lua MD Status: ADM LLOYD Study: Spine Thoracic (Routine) Date of Exam: Exam# [id number] Ordering Dr: Haile Ramirez MD PROCEDURE: SPINE THORACIC (ROUTINE) 11/27/2024 REASON FOR EXAM: BACK PAIN TECHNIQUE: Noncontrast thoracic spine MRI. Coronal and Sagittal reconstruction series were provided. FINDINGS: Vertebrae: Moderate loss of height and wedging deformity of the T12 vertebral body without marrow edema consistent with a chronic compression fracture. No retropulsion in the spinal canal. No other compression fracture of the thoracic spine. Alignment: Anatomic alignment. Mild dextroscoliosis. Spinal Cord: Thoracic spinal cord is of normal size and signal intensities. Disc spaces: Mild multilevel thoracic degenerative changes without central canal stenosis. Paraspinal Tissues: Unremarkable. MRI/Spine Thoracic (Routine) IMPRESSION: Chronic moderate wedge compression fracture of T12 without retropulsion into the spinal canal. Mild dextroscoliosis with mild degenerative disc disease but no severe spinal stenosis or cord compression. Reading Location: [facility] CC: Dr. Haile Ramirez MD; Dr. Leandro Lua MD Tester Regulator: Signed Normal [facility] Bilirubin, totalOrdered By: Tonya Cortez on 11-26-2024 Bilirubin [Mass/Vol] 0.37 mg/dL 0.00-1.30 [facility] CBC W/Diff, Automatedon 11-14 Absolute Lymph 1.13 X10 3/uL Normal 0.83-4.51 [facility] Comment on above: Performed By: #### L 500.4050, L100.0100, L506.1000, L501.9520, L500.4100 #### [facility] [address] [place], [address] Absolute Neut 3.5 X10 3/uL Normal 2.0-7.7 [facility] Comment on above: Performed By: #### L 500.4050, L100.0100, L506.1000, L501.9520, L500.4100 #### [facility] [address] [place], [address] Basophils/100 WBC (Bld) 0.4 % Normal 0-1 [facility] Comment on above: Performed By: #### L 500.4050, L100.0100, L506.1000, L501.9520, L500.4100 #### [facility] [address] [place], [address] Eosinophils/100 WBC (Bld) 2.2 % Normal 0-5 [facility] Comment on above: Performed By: #### L 500.4050, L100.0100, L506.1000, L501.9520, L500.4100 #### [facility] [address] [place], [address] Erythrocyte distribution width (RBC) [Ratio] 15.5 % High 11.6-14.6 [facility] Comment on above: Performed By: #### L 500.4050, L100.0100, L506.1000, L501.9520, L500.4100 #### [facility] [address] [place], [address] Hematocrit (Bld) [Volume fraction] 29.8 % Low 37-47 [facility] Comment on above: Performed By: #### L 500.4050, L100.0100, L506.1000, L501.9520, L500.4100 #### [facility] [address] [place], [address] Hemoglobin (Bld) [Mass/Vol] 9.0 g/dL Low 12.0-15.0 [facility] Comment on above: Performed By: #### L 500.4050, L100.0100, L506.1000, L501.9520, L500.4100 #### [facility] [address] [place], [address] IG% 0.900 Normal 0.0-0.9 [facility] Comment on above: Result Comment: IG% - Immature Granulocytes (promyelocytes, myelocytes and metamyelocytes) > 1% indicates that a LEFT SHIFT is Present. Performed By: #### L 500.4050, L100.0100, L506.1000, L501.9520, L500.4100 #### [facility] [address] [place], [address] Lymphocytes/100 WBC (Bld) 21.1 % Normal 19-41 [facility] Comment on above: Performed By: #### L 500.4050, L100.0100, L506.1000, L501.9520, L500.4100 #### [facility] [address] [place], [address] MCH (RBC) [Entitic mass] 24.4 pg Low 27.0-32.0 [facility] Comment on above: Performed By: #### L 500.4050, L100.0100, L506.1000, L501.9520, L500.4100 #### [facility] [address] [place], [address] MCHC (RBC) [Mass/Vol] 30.2 g/dL Low 32-36 [facility] Comment on above: Performed By: #### L 500.4050, L100.0100, L506.1000, L501.9520, L500.4100 #### [facility] [address] [place], [address] MCV (RBC) [Entitic vol] 80.8 fL Low 81-99 [facility] Comment on above: Performed By: #### L 500.4050, L100.0100, L506.1000, L501.9520, L500.4100 #### [facility] [address] [place], [address] Monocytes/100 WBC (Bld) 10.4 % High 0-10 [facility] Comment on above: Performed By: #### L 500.4050, L100.0100, L506.1000, L501.9520, L500.4100 #### [facility] [address] [place], [address] Neutrophils/100 WBC (Bld) 65.0 % Normal 47-70 [facility] Comment on above: Performed By: #### L 500.4050, L100.0100, L506.1000, L501.9520, L500.4100 #### [facility] [address] [place], [address] Nucleated RBC (Bld) [#/Vol] 0 10*3/uL Normal 0-5 [facility] Comment on above: Performed By: #### L 500.4050, L100.0100, L506.1000, L501.9520, L500.4100 #### [facility] [address] [place], [address] Platelet mean volume (Bld) [Entitic vol] 10.1 fL Normal 6.2-12.0 [facility] Comment on above: Performed By: #### L 500.4050, L100.0100, L506.1000, L501.9520, L500.4100 #### [facility] [address] [place], [address] Platelets (Bld) [#/Vol] 244 10*3/uL Normal 150-450 [facility] Comment on above: Performed By: #### L 500.4050, L100.0100, L506.1000, L501.9520, L500.4100 #### [facility] [address] [place], [address] RBC (Bld) [#/Vol] 3.69 10*6/uL Low 4.2-5.4 [facility] Comment on above: Performed By: #### L 500.4050, L100.0100, L506.1000, L501.9520, L500.4100 #### [facility] [address] [place], [address] RDW SD 45.6 fl High 35.1-43.9 [facility] Comment on above: Performed By: #### L 500.4050, L100.0100, L506.1000, L501.9520, L500.4100 #### [facility] [address] [place], [address] WBC (Bld) [#/Vol] 5.4 10*3/uL Normal 4.4-11.[address] [facility] Comment on above: Performed By: #### L 500.4050, L100.0100, L506.1000, L501.9520, L500.4100 #### [facility] [address] [place], [address] Comprehensive Metabolic Prof [facility] 11-26-2024 Albumin [Mass/Vol] 3.0 g/dL Low 3.4-4.[address] [facility] Comment on above: Performed By: #### L 500.4050, L100.0100, L506.1000, L501.9520, L500.4100 #### [facility] [address] [place], [address] Albumin/Globulin [Mass ratio] 1.6 {ratio} Normal 0.9-2.4 [facility] Comment on above: Performed By: #### L 500.4050, L100.0100, L506.1000, L501.9520, L500.4100 #### [facility] [address] [place], [address] ALK PHOS 51 U/L Normal 35-104 [facility] Comment on above: Performed By: #### L 500.4050, L100.0100, L506.1000, L501.9520, L500.4100 #### [facility] [address] [place], [address] ALT [Catalytic activity/Vol] 15 U/L Normal <=34 [facility] Comment on above: Performed By: #### L 500.4050, L100.0100, L506.1000, L501.9520, L500.4100 #### [facility] [address] [place], [address] AST [Catalytic activity/Vol] 18 U/L Normal <=31 [facility] Comment on above: Performed By: #### L 500.4050, L100.0100, L506.1000, L501.9520, L500.4100 #### [facility] [address] [place], [address] Bilirubin [Mass/Vol] 0.37 mg/dL Normal 0.00-1.30 [facility] Comment on above: Performed By: #### L 500.4050, L100.0100, L506.1000, L501.9520, L500.4100 #### [facility] [address] [place], [address] BUN/CRE 49.1 RATIO High 10-20 [facility] Comment on above: Performed By: #### L 500.4050, L100.0100, L506.1000, L501.9520, L500.4100 #### [facility] [address] [place], [address] Calcium [Mass/Vol] 8.2 mg/dL Normal 7.6-11.[address] [facility] Comment on above: Performed By: #### L 500.4050, L100.0100, L506.1000, L501.9520, L500.4100 #### [facility] [address] [place], [address] Chloride [Moles/Vol] 102 mmol/L Normal 98-108 [facility] Comment on above: Performed By: #### L 500.4050, L100.0100, L506.1000, L501.9520, L500.4100 #### [facility] [address] [place], [address] CO2 [Moles/Vol] 24.4 mmol/L Normal 21.0-32.0 [facility] Comment on above: Performed By: #### L 500.4050, L100.0100, L506.1000, L501.9520, L500.4100 #### [facility] [address] [place], [address] Creatinine [Mass/Vol] 0.43 mg/dL Low 0.70-1.20 [facility] Comment on above: Performed By: #### L 500.4050, L100.0100, L506.1000, L501.9520, L500.4100 #### [facility] [address] [place], [address] ECRCL 60.79 ml/min Normal 50-250 [facility] Comment on above: Performed By: #### L 500.4050, L100.0100, L506.1000, L501.9520, L500.4100 #### [facility] [address] [place], [address] GAP 9 Normal 5-15 [facility] Comment on above: Performed By: #### L 500.4050, L100.0100, L506.1000, L501.9520, L500.4100 #### [facility] [address] [place], [address] GFR/1.73 sq M.predicted among non-blacks MDRD (S/P/Bld) [Vol rate/Area] 96 mL/min/{1.73_m2} Normal >60 [facility] Comment on above: Result Comment: mL/m in/1.73m2 CKD-EPI Creatinine Equation (2020) Performed By: #### L 500.4050, L100.0100, L506.1000, L501.9520, L500.4100 #### [facility] [address] [place], [address] Globulin (S) [Mass/Vol] 1.9 g/dL Low 2.2-4.2 [facility] Comment on above: Performed By: #### L 500.4050, L100.0100, L506.1000, L501.9520, L500.4100 #### [facility] [address] [place], [address] Glucose [Mass/Vol] 116 mg/dL High 70-[address] [facility] Comment on above: Performed By: #### L 500.4050, L100.0100, L506.1000, L501.9520, L500.4100 #### [facility] [address] [place], [address] Potassium [Moles/Vol] 3.6 mmol/L Normal 3.3-5.1 [facility] Comment on above: Performed By: #### L 500.4050, L100.0100, L506.1000, L501.9520, L500.4100 #### [facility] [address] [place], [address] Sodium [Moles/Vol] 135 mmol/L Normal 133-[address] [facility] Comment on above: Performed By: #### L 500.4050, L100.0100, L506.1000, L501.9520, L500.4100 #### [facility] [address] [place], [address] T PROT 4.9 g/dL Low 5.9-8.4 [facility] Comment on above: Performed By: #### L 500.4050, L100.0100, L506.1000, L501.9520, L500.4100 #### [facility] [address] [place], [address] Urea nitrogen [Mass/Vol] 21 mg/dL High 4-19 [facility] Comment on above: Performed By: #### L 500.4050, L100.0100, L506.1000, L501.9520, L500.4100 #### [facility] [address] [place], [address] L503.7505on 11-26-2024 Natriuretic peptide B (Bld) [Mass/Vol] 911 pg/mL Normal <=1800 [facility] Comment on above: Result Comment: Hear t Failure Unlikely: < 300 pg/mL Heart Failure Likely < 50 Years: > 450 pg/mL 50-75 Years: > 900 pg/mL >75 Years: > 1800 pg/mL Performed By: #### L 500.4050, L100.0100, L506.1000, L501.9520, L500.4100 #### [facility] [address] [place], [address] Laboratory - Chemistry and C hemistry - challengeOrdered By: Tonya Cortez on 11-26-2024 AST [Catalytic activity/Vol] 18 U/L <32 [facility] Magnesiumon 11-26-2024 Magnesium [Mass/Vol] 2.0 mg/dL Normal 1.5-2.2 [facility] Comment on above: Performed By: #### L 500.4050, L100.0100, L506.1000, L501.9520, L500.4100 #### [facility] [address] [place], [place], [address] Natriuretic peptide.B prohor mele N-Terminal [Mass/volume] in Serum or PlasmaOrdered By: Tonya Cortez on 11-26-2024 Natriuretic peptide.B prohormone N-Terminal [Mass/Vol] 911 pg/mL <1800 [facility] Comment on above: Heart Failure Unlike ly: < 300 pg/mLHeart Failure Likely< 50 Years: > 450 pg/mL50-75 Years: > 900 pg/mL>75 Years: > 1800 pg/mL Phosphoruson 11-26-2024 Phosphate [Mass/Vol] 3.5 mg/dL Normal 2.7-4.5 [facility] Comment on above: Performed By: #### L 500.4050, L100.0100, L506.1000, L501.9520, L500.4100 #### [facility] [address] [place], [place], [address] Serum globulin measurementOr dered By: Tonya Cortez on 11-26-2024 Globulin (S) [Mass/Vol] 1.9 g/dL Low 2.2-4.2 [facility] Serum or plasma alanine zapata otransferase (ALT) measurementOrdered By: Tonya Cortez on 11-26-2024 ALT [Catalytic activity/Vol] 15 U/L <35 [facility] Serum or plasma albumin ashley urement (mass/volume)Ordered By: Tonya Cortez on 11-26-2024 Albumin [Mass/Vol] 3.0 g/dL Low 3.4-4.[address] [facility] Serum or plasma albumin/glob ulin mass ratioOrdered By: Tonya Cortez on 11-26-2024 Albumin/Globulin [Mass ratio] 1.6 {ratio} 0.9-2.4 [facility] Serum or plasma alkaline isaiah sphatase measurementOrdered By: Tonya Cortez on 11-26-2024 ALP [Catalytic activity/Vol] 51 U/L 35-104 [facility] TSH DL <= 0.005 mIU/L QnOrde red By: Tonya Cortez on 11-26-2024 TSH Qn 2.950 uIU/mL 0.300-4.200 [facility] Thyroid Stim Hormone (TSH)on 11-26-2024 TSH 2.950 uIU/mL Normal 0.300-4.200 [facility] Comment on above: Performed By: #### L 500.4050, L100.0100, L506.1000, L501.9520, L500.4100 #### [facility] [address] [place], [address] Total proteinOrdered By: Ellen Cortez on 11-26-2024 Protein [Mass/Vol] 4.9 g/dL Low 5.9-8.[address] [facility] Absolute neutrophil countOrd ered By: Lashawn Crocker on 11-25-2024 Neutrophils (Bld) [#/Vol] 5.1 10*3/uL 2.0-7.7 [facility] Anion gap in Serum or Plasma Ordered By: Lashawn Crocker on 11-25-2024 Anion gap [Moles/Vol] 10 mmol/L 5-15 [facility] BUN/creatinine ratioOrdered By: Lashawn Crocker on 11-25-2024 Urea nitrogen/Creatinine [Mass ratio] 53.3 mg/mg High 10-20 [facility] Basic Metabolic Profile (BMP )on 11-25-2024 BUN/CRE 53.3 RATIO High [facility] Comment on above: Performed By: #### L 500.4050, L100.0100, L506.1000, L501.9520, L500.4100 #### [facility] [address] [place], [address] Calcium [Mass/Vol] 8.9 mg/dL Normal 7.6-11.[address] [facility] Comment on above: Performed By: #### L 500.4050, L100.0100, L506.1000, L501.9520, L500.4100 #### [facility] [address] [place], [address] Chloride [Moles/Vol] 100 mmol/L Normal 98-108 [facility] Comment on above: Performed By: #### L 500.4050, L100.0100, L506.1000, L501.9520, L500.4100 #### [facility] [address] [place], [address] CO2 [Moles/Vol] 25.5 mmol/L Normal 21.0-32.0 [facility] Comment on above: Performed By: #### L 500.4050, L100.0100, L506.1000, L501.9520, L500.4100 #### [facility] [address] [place], [address] Creatinine [Mass/Vol] 0.50 mg/dL Low 0.70-1.20 [facility] Comment on above: Performed By: #### L 500.4050, L100.0100, L506.1000, L501.9520, L500.4100 #### [facility] [address] [place], [address] GAP 10 Normal 5-15 [facility] Comment on above: Performed By: #### L 500.4050, L100.0100, L506.1000, L501.9520, L500.4100 #### [facility] [address] [place], [address] GFR/1.73 sq M.predicted among non-blacks MDRD (S/P/Bld) [Vol rate/Area] 92 mL/min/{1.73_m2} Normal >60 [facility] Comment on above: Result Comment: mL/m in/1.73m2 CKD-EPI Creatinine Equation (2020) Performed By: #### L 500.4050, L100.0100, L506.1000, L501.9520, L500.4100 #### [facility] [address] [place], [address] Glucose [Mass/Vol] 120 mg/dL High 70-[address] [facility] Comment on above: Performed By: #### L 500.4050, L100.0100, L506.1000, L501.9520, L500.4100 #### [facility] [address] [place], [address] Potassium [Moles/Vol] 4.1 mmol/L Normal 3.3-5.1 [facility] Comment on above: Performed By: #### L 500.4050, L100.0100, L506.1000, L501.9520, L500.4100 #### [facility] [address] [place], [address] Sodium [Moles/Vol] 135 mmol/L Normal 133-[address] [facility] Comment on above: Performed By: #### L 500.4050, L100.0100, L506.1000, L501.9520, L500.4100 #### [facility] [address] [place], [address] Urea nitrogen [Mass/Vol] 27 mg/dL High 4-19 [facility] Comment on above: Performed By: #### L 500.4050, L100.0100, L506.1000, L501.9520, L500.4100 #### [facility] [address] [place], [address] Basophil percentageOrdered B y: Lashawn Obi on 11-25-2024 Basophils/100 WBC (Bld) 0.3 % 0-1 [facility] CBC W/Diff, Automatedon 11-14 Absolute Lymph 1.16 X10 3/uL Normal 0.83-4.51 [facility] Comment on above: Performed By: #### L 500.4050, L100.0100, L506.1000, L501.9520, L500.4100 #### [facility] [address] [place], [address] Absolute Neut 5.1 X10 3/uL Normal 2.0-7.7 [facility] Comment on above: Performed By: #### L 500.4050, L100.0100, L506.1000, L501.9520, L500.4100 #### [facility] [address] [place], [address] Basophils/100 WBC (Bld) 0.3 % Normal 0-1 [facility] Comment on above: Performed By: #### L 500.4050, L100.0100, L506.1000, L501.9520, L500.4100 #### [facility] [address] [place], [address] Eosinophils/100 WBC (Bld) 0.6 % Normal 0-5 [facility] Comment on above: Performed By: #### L 500.4050, L100.0100, L506.1000, L501.9520, L500.4100 #### [facility] [address] [place], [address] Erythrocyte distribution width (RBC) [Ratio] 15.4 % High 11.6-14.6 [facility] Comment on above: Performed By: #### L 500.4050, L100.0100, L506.1000, L501.9520, L500.4100 #### [facility] [address] [place], [address] Hematocrit (Bld) [Volume fraction] 34.1 % Low 37-47 [facility] Comment on above: Performed By: #### L 500.4050, L100.0100, L506.1000, L501.9520, L500.4100 #### [facility] [address] [place], [address] Hemoglobin (Bld) [Mass/Vol] 10.4 g/dL Low 12.0-15.0 [facility] Comment on above: Performed By: #### L 500.4050, L100.0100, L506.1000, L501.9520, L500.4100 #### [facility] [address] [place], [address] IG% 0.700 Normal 0.0-0.9 [facility] Comment on above: Result Comment: IG% - Immature Granulocytes (promyelocytes, myelocytes and metamyelocytes) > 1% indicates that a LEFT SHIFT is Present. Performed By: #### L 500.4050, L100.0100, L506.1000, L501.9520, L500.4100 #### [facility] [address] [place], [address] Lymphocytes/100 WBC (Bld) 16.1 % Low 19-41 [facility] Comment on above: Performed By: #### L 500.4050, L100.0100, L506.1000, L501.9520, L500.4100 #### [facility] [address] [place], [address] MCH (RBC) [Entitic mass] 24.3 pg Low 27.0-32.0 [facility] Comment on above: Performed By: #### L 500.4050, L100.0100, L506.1000, L501.9520, L500.4100 #### [facility] [address] [place], [address] MCHC (RBC) [Mass/Vol] 30.5 g/dL Low 32-36 [facility] Comment on above: Performed By: #### L 500.4050, L100.0100, L506.1000, L501.9520, L500.4100 #### [facility] [address] [place], [address] MCV (RBC) [Entitic vol] 79.7 fL Low 81-99 [facility] Comment on above: Performed By: #### L 500.4050, L100.0100, L506.1000, L501.9520, L500.4100 #### [facility] [address] [place], [address] Monocytes/100 WBC (Bld) 11.8 % High 0-10 [facility] Comment on above: Performed By: #### L 500.4050, L100.0100, L506.1000, L501.9520, L500.4100 #### [facility] [address] [place], [address] Neutrophils/100 WBC (Bld) 70.5 % High 47-70 [facility] Comment on above: Performed By: #### L 500.4050, L100.0100, L506.1000, L501.9520, L500.4100 #### [facility] [address] [place], [address] Nucleated RBC (Bld) [#/Vol] 0 10*3/uL Normal 0-5 [facility] Comment on above: Performed By: #### L 500.4050, L100.0100, L506.1000, L501.9520, L500.4100 #### [facility] [address] [place], [address] Platelet mean volume (Bld) [Entitic vol] 9.8 fL Normal 6.2-12.0 [facility] Comment on above: Performed By: #### L 500.4050, L100.0100, L506.1000, L501.9520, L500.4100 #### [facility] [address] [place], [address] Platelets (Bld) [#/Vol] 305 10*3/uL Normal 150-450 [facility] Comment on above: Performed By: #### L 500.4050, L100.0100, L506.1000, L501.9520, L500.4100 #### [facility] [address] [place], [address] RBC (Bld) [#/Vol] 4.28 10*6/uL Normal 4.2-5.4 [facility] Comment on above: Performed By: #### L 500.4050, L100.0100, L506.1000, L501.9520, L500.4100 #### [facility] [address] [place], [address] RDW SD 44.2 fl High 35.1-43.9 [facility] Comment on above: Performed By: #### L 500.4050, L100.0100, L506.1000, L501.9520, L500.4100 #### [facility] [address] [place], [address] WBC (Bld) [#/Vol] 7.2 10*3/uL Normal 4.4-11.[address] [facility] Comment on above: Performed By: #### L 500.4050, L100.0100, L506.1000, L501.9520, L500.4100 #### [facility] [address] [place], [address] Carbon dioxide, total [Moles /volume] in Central venous bloodOrdered By: Lashawn Crocker on 11-25-2024 CO2 [Moles/Vol] 25.5 mmol/L 21.0-32.0 [facility] Chloride assayOrdered By: Elsa Crocker on 11-25-2024 Chloride [Moles/Vol] 100 mmol/L 98-108 [facility] Summary on 11-25-2024 Emergency Department Summary [facility] Medical Records Department [address] [place] [address] Emergency Department Summary 11/25/24 MR#: [id number] Acct: [id number] Name: DESTINKAILEY ORELLANABRICE Maher Rep #: [id number] : 1940 84 From: Payam Aldridge MD PCP: Dr. Leandro Lua MD Status:ADM [place] Location: MS3 RS176-5 HPI History of Present Illness Chief Complaint: Back Narrative Narrative: 84-year-old female presents with low back pain x 1 week. She has had intermittent low back issues since last year when she had compression fractures of T12 and L1. 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 She saw her primary care doctor 4 days ago and was given IM shots in the office for a muscle relaxer anti-inflammatory and was prescribed prednisone, tramadol, and a muscle relaxer to take at bedtime. She is also taking Tylenol 650 mg 3 times a day. This was helping until 2 days ago when she had an ophthalmology procedure and was moving around on 2 different tables and surfaces and developed worsening low back pain. She uses a walker at baseline but is having more difficulty with ADLs. She lives alone. Her granddaughter had to help her sit and put her legs into the car due to pain. She has no weakness or lower extremity numbness or tingling. No saddle anesthesia or bladder bowel incontinence. [facility] Medical History Arthritis BPPV (benign paroxysmal positional vertigo) Cancer Compression fracture of L1 lumbar vertebra Constipation GERD (gastroesophageal reflux disease) Hemorrhoids Hypertension Home Medications ???Medication ???Instructions ???Recorded ???Last Taken ???Type hydrochlorothiazide 12.5 mg tablet 12.5 mg PO DAILY 03/18/17 14:00 History acetaminophen 500 mg tablet 1,000 mg (2 x 500 mg) PO Q8H PRN 0 04/02/17 Unknown Rx PRN Mild Pain (1-3/10) meclizine 12.5 mg tablet 12.5 mg PO TID ##90 04/02/17 Unkno wn Rx calcium carbonate (Calcium 600) 600 mg PO DAILY 04/24/22 Unknown H istory calcium carbonate (Tums) 200 mg PO BID 04/24/22 Unknown His tory cholecalciferol (vitamin D3) 10 10 mcg PO DAILY 04/24/22 Unknown H istory mcg (400 unit) capsule fluticasone propionate 50 1 spray intranasal DAILY 04/24/22 Unknown History mcg/actuation nasal spray,suspension guaifenesin 1,200 mg tablet, 1,200 mg PO BID 04/24/22 Unknown H istory extended release 12 hr (Mucinex) magnesium 250 mg tablet 250 mg PO DAILY 04/24/22 Unknown H istory melatonin 3 mg capsule 3 mg PO HS PRN 04/24/22 Unknown Hi story metoprolol succinate 25 mg 25 mg PO DAILY 04/24/22 Unknown Hi story tablet,extended release 24 hr multivitamin 1 tab PO DAILY 04/24/22 Unknown Hi story potassium chloride 20 mEq 20 meq PO 04/24/22 Unknown History tablet,extended release turmeric 100 mg-jad 150 cap PO 04/24/22 Unknown History mg-olive 50 mg-oreg 150 mg-capryl capsule Allergy/AdvReac Type Severity Reaction Status Date / Time norfloxacin (From Noroxin) Allergy unknown Verified 11/25/24 09:26 polymyxin B Allergy Swelling Verified 11/25/24 09:26 levofloxacin (From Levaquin) AdvReac Diarrhea Verified 11/25/24 09:26 phenylephrine (From Sudafed AdvReac Other Verified 11/25/24 09:26 PE) Surgical History History of gastric bypass History of hysterectomy History of knee replacement Hx of shoulder replacement Social History Smoking Status: Former smoker ROS ROS ED ROS Narrative Constitutional: Negative for fever, chills, malaise. GI: Negative for abdominal pain, nausea, vomiting. : Negative for dysuria. Neuro: Negative for motor/sensory dysfunction. EXAM Physical Exam Narrative Exam Narrative: CONST: Patient sitting in no acute distress. EYES: Normal inspection. NECK: Normal inspection. RESP: No respiratory distress, CTAB. CVS: Regular rate and rhythm, no murmur, no gallop. ABD: Soft and nontender, no guarding or rebound, nondistended. Back: Normal inspection, tender over lower lumbar spine without step-offs. Tender over right lumbar paraspinals SKIN: Color normal, no rash, warm, dry, intact. EXTREMITIES: Symmetric bilateral pitting edema to mid tibia, 5/5 strength in dorsi flexion and plantarflexion, normal sensation, 2+ DP pulses. NEURO: Alert and answering questions appropriately. PSYCH: Normal affect. Const Vital Signs: 11/25/24 09:27 Temperature 98.9 F Temperature Source Oral Pulse Rate 66 Respiratory Rate 18 Blood Pressure 149/66 H Blood Pressure Mean 93 Pulse Ox 97 Oxygen Delivery Method Room Air (more content not included)... Normal [facility] Eosinophil percentageOrdered By: Lashawn Crocker on 11-25-2024 Eosinophils/100 WBC (Bld) 0.6 % 0-5 [facility] Erythrocyte distribution wid th (RBC) [Ratio]Ordered By: Lashawn Crocker on 11-25-2024 Erythrocyte distribution width (RBC) [Entitic vol] 44.2 fL High 35.1-43.9 [facility] Erythrocyte distribution wid th ratioOrdered By: Lashawn Crocker on 11-25-2024 Erythrocyte distribution width (RBC) [Ratio] 15.4 % High 11.6-14.6 [facility] GFR/1.73 sq M.predicted timothy g non-blacks MDRD (S/P/Bld) [Vol rate/Area]Ordered By: Lashawn Crocker on 11-25-2024 Estimated GFR (MDRD) Non-Af Amer 92 >60 [facility] Comment on above: mL/min/1.73m2 CKD-EP I Creatinine Equation (2020) H AND P Exam - [facility] 11-25-2024 H&P Exam - Hospitalist [facility] Medical Records Department [address] [place] [address] H P Exam - Hospitalist 11/25/24 1136 MR#: [id number] Acct: [id number] Name: TORSTEN COLINDRES Rep #: [id number] : 1940 84 From: Tonya Cortez DO PCP: Dr. Leandro Lua MD Status:ADM [place] Location: [place] [address] HPI - General General Date of Admission: 11/25/24 Date of Service: 11/25/24 Chief Complaint: Intractable back pain HPI Narrative TORSTEN COLINDRES, is a 84 F who presented to the emergency department at [facility] on 11/25/2024 with a chief complaint of intractable back pain. Patient reported on presentation she has had intermittent low back pain since about 8 years ago when she sustained compression fractures at T12 and L1. About a week ago she was doing some housekeeping and lifting shoe boxes of paint supplies out of the schwartz closet at which time she developed increasing low back pain on the right side. She saw her primary care doctor about 4 days ago and was given an IM shot of a muscle relaxer, anti-inflammatory and was prescribed prednisone, Ultram, and a muscle relaxant to take at bedtime. She was also taking Tylenol 650 mg 3 times a day. It was helping until about 2 days ago when she had an ophthalmology procedure and was moving around for procedure done at the office and she developed worsening low back pain. At baseline she has been utilizing a walker but having more difficulty with her ADLs and IADLs. She lives alone at baseline. Her granddaughter helps her and recently has had such severe pain that her granddaughter has had to move her legs in and out of the car. She denied any lower extremity weakness. She denied any changes in bladder or bowel function. She has no saddle anesthesia. Vital signs on presentation showed temperature of 98.9, heart rate 66, respiratory 18, blood pressure was 149/66 and pulse ox was 97% on room air. CBC shows a microcytic anemia that appears to be chronic and stable. Chemistry panel was unremarkable. UA is pending. Lumbar spine x-rays show advanced degenerative changes but no acute abnormalities. 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 CT of the lumbar spine shows stable findings as previously observed on previous imaging. [facility] Medical History Hemorrhoids Cancer Arthritis Hypertension GERD (gastroesophageal reflux disease) Constipation BPPV (benign paroxysmal positional vertigo) Compression fracture of L1 lumbar vertebra Home Medications ???Medication ???Instructions ???Recorded ???Last Taken ???Type calcium carbonate (Calcium 600) 600 mg PO DAILY 04/24/22 11/24/24 History calcium carbonate (Tums) 200 mg PO BID PRN dyspepsia 11/23/24 History fluticasone propionate 50 2 spray intranasal DAILY 04/24/22 Unknown History mcg/actuation nasal spray,suspension metoprolol succinate 25 mg 25 mg PO DAILY 04/24/22 11/24/24 H istory tablet,extended release 24 hr multivitamin 1 tab PO DAILY 04/24/22 11/24/24 H istory acetaminophen 650 mg 650 mg PO Q8H PRN pain 11/25/24 History tablet,extended release (Arthritis Pain Relief (acetaminophen) ER) baclofen 10 mg tablet 10 mg PO QHS MUSCLE SPASM 11/25/24 11/24/24 History cholecalciferol (vitamin D3) 25 25 mcg PO DAILY 11/25/24 11/24/24 History mcg (1,000 unit) capsule (Vitamin D3) cranberry 500 mg capsule 500 mg PO DAILY 11/25/24 Unknown H istory dorzolamide 22.3 mg-timolol 6.8 1 drp ophthalmic (eye) BID 5 Unknown History mg/mL eye drops guaifenesin 600 mg tablet, 600 mg PO BID PRN congestion 11/25 Unknown History extended release 12 hr (Mucinex) hydrochlorothiazide 25 mg tablet 25 mg PO DAILY 11/25/24 11/24/24 H istory ketorolac 0.5 % eye drops 1 drp ophthalmic (eye) TID 5 11/25/24 History magnesium oxide 400 mg (241.3 mg 400 mg PO DAILY 11/25/24 11/24/24 History magnesium) tablet meclizine 12.5 mg tablet 12.5 mg PO TID PRN dizziness 11/25 Unknown History melatonin 5 mg tablet 5 mg PO QHS PRN sleep 11/25/24 Unk nown History naproxen 250 mg tablet 250 mg PO BID 11/25/24 11/24/24 Hi story pantoprazole 40 mg tablet,delayed 40 mg PO DAILY 11/25/24 11/24/24 History release prednisone 10 mg tablet See Taper PO .COMPLEX 11/25/2407/10 History Allergy/AdvReac Type Severity Reaction Status Date / Time norfloxacin (From Noroxin) Allergy unknown Verified 11/25/24 09:26 polymyxin B Allergy Swelling Verified 11/25/24 09:26 levofloxacin (From Levaquin) AdvReac Diarrhea Verified 11/25/24 09:26 phenylephrine (From Sudafed AdvReac Other Verified 11/25/24 09:26 PE) (more content not included)... Normal [facility] Hematocrit Auto (Bld) [Volum e fraction]Ordered By: Lashawn Crocker on 11-25-2024 Hematocrit (Bld) [Volume fraction] 34.1 % Low 37-47 [facility] Hemoglobin measurementOrdere d By: Lashawn Crocker on 11-25-2024 Hemoglobin (Bld) [Mass/Vol] 10.4 g/dL Low 12.0-15.0 [facility] Immature granulocytes/100 WB C Auto (Bld)Ordered By: Lashawn Crocker on 11-25-2024 Immature granulocytes/100 WBC (Bld) 0.700 % 0.0-0.9 [facility] Comment on above: IG% - Immature Granu locytes (promyelocytes, myelocytes and metamyelocytes) > 1% indicates that a LEFT SHIFT is Present. Lumbar Spine 2 or 3 Viewson 11-25-2024 Lumbar Spine 2 or 3 Views [facility] Imaging Services [address] [place] [id number] Lumbar Spine 2 or 3 Views MR#: [id number] Acct: [id number] Name: TORSTEN COLINDRES Rep #: [id number] : 1940 F 84 From: Conchis Altamirano nd, MD PCP: Dr. Leandro Lua MD Status: REG ER Study: Lumbar Spine 2 or 3 Views Date of Exam: Exam# [id number] Ordering Dr: Lashawn Crocker PROCEDURE: LUMBAR SPINE 2 OR 3 VIEWS 11/25/2024 REASON FOR EXAM: PAIN TECHNIQUE: 2 view(s) of the lumbar spine COMPARISON: None. FINDINGS: Vertebrae: Chronic severe T12 and mild L1 vertebral body compression fracture deformities. The vertebral body heights are otherwise maintained. No acute fracture visualized. Diffuse osseous demineralization. Discs: Advanced multilevel disc space narrowing with endplate osteophytes. Alignment: Grade 1 anterolisthesis of L1 onto L2, L2 onto L3, L3 onto L4, and grade 2 anterolisthesis of L4 onto L5. Other: Calcification of the thoracic aorta. Scattered abdominal surgical clips. RAD/Lumbar Spine 2 or 3 Views IMPRESSION: ADVANCED DEGENERATIVE CHANGES OF THE LUMBAR SPINE. Reading Location: [facility] CC: Dr. Leandro Lua MD; SHON Uribe Tester Regulator: Signed Normal [facility] Lymphocytes Auto (Unsp spec) [#/Vol]Ordered By: Lashawn Crocker on 11-25-2024 Lymphocytes (Bld) [#/Vol] 1.16 10*3/uL 0.83-4.51 [facility] Lymphocytes/100 WBC Auto (Un sp spec)Ordered By: Lashawn Crocker on 11-25-2024 Lymphocytes/100 WBC (Bld) 16.1 % Low 19-41 [facility] MCV (mean corpuscular volume ) determinationOrdered By: Lashawn Crocker on 11-25-2024 MCV (RBC) [Entitic vol] 79.7 fL Low 81-99 [facility] Mean corpuscular hemoglobin (MCH) determinationOrdered By: Lashawn Crocker on 11-25-2024 MCH (RBC) [Entitic mass] 24.3 pg Low 27.0-32.0 [facility] Mean corpuscular hemoglobin concentration (MCHC) determinationOrdered By: Lashawn Crocker on 11-25-2024 MCHC (RBC) [Mass/Vol] 30.5 g/dL Low 32-36 [facility] Mean platelet volume determi nationOrdered By: Lashawn Crocker on 11-25-2024 Platelet mean volume (Bld) [Entitic vol] 9.8 fL 6.2-12.0 [facility] Monocyte percentageOrdered B y: Lashawn Crocker on 11-25-2024 Monocytes/100 WBC (Bld) 11.8 % High 0-10 [facility] Neutrophil percentageOrdered By: Lashawn Crocker on 11-25-2024 Neutrophils/100 WBC (Bld) 70.5 % High 47-70 [facility] Nucleated red blood cell per centageOrdered By: Lashawn Crocker on 11-25-2024 Nucleated RBC/100 WBC (Bld) [Ratio] 0 % 0-5 [facility] Platelet countOrdered By: Elsa Crocker on 11-25-2024 Platelets (Bld) [#/Vol] 305 10*3/uL 150-450 [facility] Potassium (Unsp spec) [Mass/ Vol]Ordered By: Lashawn Zayasrena on 11-25-2024 Potassium [Moles/Vol] 4.1 mmol/L 3.3-5.1 [facility] RBC Auto (Bld) [#/Vol]Ordere d By: Lashawn Obi on 11-25-2024 RBC (Bld) [#/Vol] 4.28 10*6/uL 4.2-5.4 [facility] Serum creatinine measurement (mass/volume)Ordered By: Lashawntanvir Crocker on 11-25-2024 Creatinine [Mass/Vol] 0.50 mg/dL Low 0.70-1.20 [facility] Serum glucose measurement (m ass/volume)Ordered By: Lashawntanvir Crocker on 11-25-2024 Glucose [Mass/Vol] 120 mg/dL High 70-[address] [facility] Serum or plasma calcium ashley urement (mass/volume)Ordered By: Lashawn Obi on 11-25-2024 Calcium [Mass/Vol] 8.9 mg/dL 7.6-11.[address] [facility] Serum or plasma urea nitroge n measurement (mass/volume)Ordered By: Lashawn Obi on 11-25-2024 Urea nitrogen [Mass/Vol] 27 mg/dL High 4-19 [facility] Sodium levelOrdered By: Lashawn bOi on 11-25-2024 Sodium [Moles/Vol] 135 mmol/L 133-[address] [facility] Spine Lumbar without Contras ton 11-25-2024 Spine Lumbar without Contrast [facility] Imaging Services [address] [place], [place] [id number] Spine Lumbar without Contrast MR#: [id number] Acct: [id number] Name: TORSTEN COLINDRES Rep #: [id number] : 1940 F 84 From: Conchis Altamirano nd, MD PCP: Dr. Leandro Lua MD Status: REG ER Study: Spine Lumbar without Contrast Date of Exam: Exam# [id number] Ordering Dr: Tonya Cortez DO PROCEDURE: SPINE LUMBAR WITHOUT CONTRAST 11/25/2024 REASON FOR EXAM: PAIN WITH H/O FXS TECHNIQUE: Lumbar spine CT without contrast. Coronal and Sagittal reconstruction series were provided. One or more dose reduction techniques were used (e.g., Automated exposure control, adjustment of the mA and/or kV according to patient size, use of iterative reconstruction technique COMPARISON: Same day L-spine radiographs. RADIATION DOSE SUMMARY: CTDlvol: 26 mGy DLP: 900 mGycm FINDINGS: Vertebrae: Diffuse osseous demineralization. Re-demonstration of severe T12 and moderate L1 vertebral body compression fracture deformities. The vertebral body heights are otherwise maintained. No acute fracture. Multilevel degenerative disc disease with vacuum effect. Alignment: Grade 1 anterolisthesis of L1 onto L2, L2 onto L3, L3 onto L4, and grade 2 anterolisthesis of L4 onto L5. No traumatic listhesis. Sacrum: Unremarkable. Chronic rib fracture deformities. Calcific plaque of the aortoiliac vessels. Hiatal hernia. Severe mitral annular calcifications. Bibasilar fibrosis. CT/Spine Lumbar without Contrast IMPRESSION: NO ACUTE LUMBAR FRACTURE. DEGENERATIVE CHANGES. Reading Location: [facility] CC: Dr. Tonya Cortez DO; Dr. Leandro Lua MD Tester Regulator: Signed Normal [facility] Venous Duplex US - [facility] 11-25-2024 Venous Duplex US - [facility] Cardiovascular Services [address] [place] [id number] Venous Duplex US - [facility] 11/27/24 0800 MR#: [id number] Acct: [id number] Name: TORSTEN COLINDRES Rep #: [id number] : 1940 84 From: Tommie Chowdhury MD Attending Dr: Dr. Haile Davis MD Status : ADM LLOYD Ordering Dr: Tonya Cortez DO Date: 11/25/24 Location: MS3 Sex: F C Admitted: 11/25/24 Reason For Study Reason For Study: BLE Swelling RIGHT LEFT GSV is normal. GSV is normal. CFV is compressible, spontaneous, phasic, competent CFV is compressible, spontaneous, phasic, competent, and demonstrates normal augmentation. and demonstrates normal augmentation. FV is compressible, spontaneous, phasic, competent FV is compressible, spontaneous, phasic, competent and demonstrates normal augmentation. and demonstrates normal augmentation. POP V is compressible, spontaneous, phasic, competent POP V is compressible, spontaneous, phasic, competent and demonstrates normal augmentation. and demonstrates normal augmentation. T/P Trunk is compressible. T/P Trunk is compressible. PTV is compressible. PTV is compressible. RT PerV is compressible. LT PerV is compressible. Procedure This is a venous duplex using B-mode, color flow and spectral Doppler. Exam performed portable in patient room. The exam was diagnostic. A preliminary report was called and/or faxed to M/S 3 snow blower. VL/Venous Duplex US - [facility] Interpretation Summary Deep veins of the bilateral lower extremities are patent and compressible segmentally. There is no evidence of bilateral lower extremity deep vein thrombosis. The bilateral great saphenous veins appear patent and compressible segmentally. Ordering Physician: Tonya Cortez Referring Physician: Leandro Lua Chi Performed By: Kishor Conley Rita 11/27/241646 Date Tommie Chowdhury MD CC: Dr. Tonya Cortez DO; Dr. Haile Davis MD; Dr. Leandro Lua MD Date Dictated: 11/27/24 0800 Date Transcribed: 11/27/241646 Tester Regulator: Signed Normal [facility] Vitamin D,25 Hydroxyon 11-25 Vitamin D 25-OH 36.3 ng/mL Normal 30-100 [facility] Comment on above: Result Comment: Elizabeth min D Status Deficiency: <20 ng/mL (50nmol/L) Insufficiency: 20-30 ng/mL (50-75 nmol/L) Sufficiency: 30-100 ng/mL (75-250 nmol/L) Toxicity: >100 ng/mL (>250 nmol/L) Performed By: #### L 506.1001 ####[facility] [id number] [place], [place], [id number] White blood cell (WBC) count Ordered By: Lashawn Crocker on 11-25-2024 WBC (Bld) [#/Vol] 7.2 10*3/uL 4.4-11.[address] [facility] Absolute lymphocyte countOrd ered By: Leandro Lua on 11-21-2024 Lymphocytes Auto (Unsp spec) [#/Vol] 1.07 10*3/uL 0.83-4.51 [facility] Absolute neutrophil countOrd ered By: Leandro Lua on 11-21-2024 Neutrophils (Bld) [#/Vol] 3.2 10*3/uL 2.0-7.7 [facility] Anion gap in Serum or Plasma Ordered By: Leandro Lua on 11-21-2024 Anion gap [Moles/Vol] 12 mmol/L 5-15 [facility] Automated blood erythrocyte countOrdered By: Leandro Lua on 11-21-2024 RBC (Bld) [#/Vol] 4.15 10*6/uL Low 4.2-5.4 [facility] Comment on above: Performed By: #### L 500.4050, L100.0100, L506.1000, L501.9520, L500.4100 #### [facility] [address] [place], [place], [id number] Automated blood hematocrit ( percentage)Ordered By: Leandro Lua on 11-21-2024 Hematocrit (Bld) [Volume fraction] 33.3 % Low 37-47 [facility] Comment on above: Performed By: #### L 500.4050, L100.0100, L506.1000, L501.9520, L500.4100 #### [facility] [address] [place], [address] Automated lymphocyte count a s percentage of total leukocytesOrdered By: Leandro Lua on 11-21-2024 Lymphocytes/100 WBC (Bld) 21.0 % Normal [facility] Comment on above: Performed By: #### L 500.4050, L100.0100, L506.1000, L501.9520, L500.4100 #### [facility] [address] [place], [address] Lymphocytes/100 WBC Auto (Unsp spec) 21.0 % [facility] BUN/creatinine ratioOrdered By: Leandro Lua on 11-21-2024 Urea nitrogen/Creatinine [Mass ratio] 40.5 mg/mg High 10-20 [facility] Basophil percentageOrdered B y: Leandro Lua on 11-21-2024 Basophils/100 WBC (Bld) 1.0 % Normal 0-1 [facility] Comment on above: Performed By: #### L 500.4050, L100.0100, L506.1000, L501.9520, L500.4100 #### [facility] [address] [place], [place], [id number] Bilirubin, totalOrdered By: Leandro Lua on 11-21-2024 Bilirubin [Mass/Vol] 0.41 mg/dL Normal 0.00-1.30 [facility] Comment on above: Performed By: #### L 500.4050, L100.0100, L506.1000, L501.9520, L500.4100 #### [facility] [address] [place], [address] CBC W/Diff, Automatedon Absolute Lymph 1.07 X10 3/uL Normal 0.83-4.51 [facility] Comment on above: Performed By: #### L 500.4050, L100.0100, L506.1000, L501.9520, L500.4100 #### [facility] [address] [place], [address] Absolute Neut 3.2 X10 3/uL Normal 2.0-7.7 [facility] Comment on above: Performed By: #### L 500.4050, L100.0100, L506.1000, L501.9520, L500.4100 #### [facility] [address] [place], [address] IG% 0.400 Normal 0.0-0.9 [facility] Comment on above: Result Comment: IG% - Immature Granulocytes (promyelocytes, myelocytes and metamyelocytes) > 1% indicates that a LEFT SHIFT is Present. Performed By: #### L 500.4050, L100.0100, L506.1000, L501.9520, L500.4100 #### [facility] [address] [place], [address] Nucleated RBC (Bld) [#/Vol] 0 10*3/uL Normal 0-5 [facility] Comment on above: Performed By: #### L 500.4050, L100.0100, L506.1000, L501.9520, L500.4100 #### [facility] [address] [place], [address] RDW SD 44.9 fl High 35.1-43.9 [facility] Comment on above: Performed By: #### L 500.4050, L100.0100, L506.1000, L501.9520, L500.4100 #### [facility] [address] [place], [address] Calculated very low density lipoprotein (VLDL) cholesterol measurementOrdered By: Leandro Lua on 11-21-2024 Calculated very low density lipoprotein (VLDL) cholesterol measurement 15 mg/dL 5-40 [facility] VLDL Cholesterol 15 mg/dL 5-40 [facility] Carbon dioxide, total [Moles /volume] in Central venous bloodOrdered By: Leandro Lua on 11-21-2024 CO2 [Moles/Vol] 23.8 mmol/L Normal 21.0-32.0 [facility] Comment on above: Performed By: #### L 500.4050, L100.0100, L506.1000, L501.9520, L500.4100 #### [facility] [address] [place], [address] Chloride assayOrdered By: Scottie Lua on 11-21-2024 Chloride [Moles/Vol] 101 mmol/L Normal 98-108 [facility] Comment on above: Performed By: #### L 500.4050, L100.0100, L506.1000, L501.9520, L500.4100 #### [facility] [address] [place], [address] Comprehensive Metabolic Prof ilon 11-21-2024 ALK PHOS 68 U/L Normal 35-104 [facility] Comment on above: Performed By: #### L 500.4050, L100.0100, L506.1000, L501.9520, L500.4100 #### [facility] [address] [place], [address] BUN/CRE 40.5 RATIO High 10-20 [facility] Comment on above: Performed By: #### L 500.4050, L100.0100, L506.1000, L501.9520, L500.4100 #### [facility] [address] [place], [address] GAP 12 Normal 5-15 [facility] Comment on above: Performed By: #### L 500.4050, L100.0100, L506.1000, L501.9520, L500.4100 #### [facility] [address] [place], [address] T PROT 6.2 g/dL Normal 5.9-8.4 [facility] Comment on above: Performed By: #### L 500.4050, L100.0100, L506.1000, L501.9520, L500.4100 #### [facility] [address] [place], [address] Comprehensive Metabolic Prof ilOrdered By: Leandro Lua on 11-21-2024 AST [Catalytic activity/Vol] 24 U/L Normal <=31 [facility] Comment on above: Performed By: #### L 500.4050, L100.0100, L506.1000, L501.9520, L500.4100 #### [facility] [address] [place], [address] Eosinophil percentageOrdered By: Leandro Lua on 11-21-2024 Eosinophils/100 WBC (Bld) 2.9 % Normal 0-5 [facility] Comment on above: Performed By: #### L 500.4050, L100.0100, L506.1000, L501.9520, L500.4100 #### [facility] [address] [place], [address] Erythrocyte distribution wid th (RBC) [Ratio]Ordered By: Leandro Lua on 11-21-2024 Erythrocyte distribution width (RBC) [Entitic vol] 44.9 fL High 35.1-43.9 [facility] Erythrocyte distribution wid th ratioOrdered By: Leandro Lua on 11-21-2024 Erythrocyte distribution width (RBC) [Ratio] 15.4 % High 11.6-14.6 [facility] Comment on above: Performed By: #### L 500.4050, L100.0100, L506.1000, L501.9520, L500.4100 #### [facility] [address] [place], [address] Erythrocyte distribution wid th standard deviationOrdered By: Leandro Lua on 11-21-2024 Erythrocyte distribution width (RBC) [Ratio] 44.9 fl High 35.1-43.9 [facility] GFR/1.73 sq M.predicted timothy g non-blacks MDRD (S/P/Bld) [Vol rate/Area]Ordered By: Leandro Lua on 11-21-2024 Estimated GFR (MDRD) Non-Af Amer 93 >60 [facility] Comment on above: mL/min/1.73m2 CKD-EP I Creatinine Equation (2020) Glomerular filtration rate ( GFR) estimation/1.73 sq m using serum, plasma, or whole bOrdered By: Leandro Lua on 11-21-2024 GFR/1.73 sq M.predicted among non-blacks MDRD (S/P/Bld) [Vol rate/Area] 93 mL/min/{1.73_m2} Normal >60 [facility] Comment on above: mL/min/1.73m2 CKD-EP I Creatinine Equation (2020) Result Comment: mL/m in/1.73m2 CKD-EPI Creatinine Equation (2020) Performed By: #### L 500.4050, L100.0100, L506.1000, L501.9520, L500.4100 #### [facility] [address], [place], [id number] Hemoglobin measurementOrdere d By: Leandro Lua on 11-21-2024 Hemoglobin (Bld) [Mass/Vol] 10.2 g/dL Low 12.0-15.0 [facility] Comment on above: Performed By: #### L 500.4050, L100.0100, L506.1000, L501.9520, L500.4100 #### [facility] [address] [place], [place], [id number] Immature granulocytes/100 WB C Auto (Bld)Ordered By: Leandro Lua on 11-21-2024 Immature granulocytes/100 WBC (Bld) 0.400 % 0.0-0.9 [facility] Comment on above: IG% - Immature Granu locytes (promyelocytes, myelocytes and metamyelocytes) > 1% indicates that a LEFT SHIFT is Present. LDL calc ser/plasOrdered By: Leandro Lua on 11-21-2024 Cholesterol in LDL [Mass/Vol] 85 mg/dL Normal [facility] Comment on above: Sakwypxjde=174-126 m g/dL & Higher Ipkl=902 mg/dL or greater Result Comment: Bord fbrdhs=214-919 mg/dL Higher Vrzt=290 mg/dL or greater Performed By: #### L 500.4050, L100.0100, L506.1000, L501.9520, L500.4100 #### [facility] [address] [place], [address] LDL Cholesterol, Calculated 85 mg/dL [facility] Comment on above: Skkexkupik=411-519 m g/dL & Higher Djok=486 mg/dL or greater Lipid Profileon 11-21-2024 CHOL:HDL 2.61 Normal [facility] Comment on above: Performed By: #### L 500.4050, L100.0100, L506.1000, L501.9520, L500.4100 #### [facility] [address], [address] Cholesterol in VLDL [Mass/Vol] 15 mg/dL Normal 5-40 [facility] Comment on above: Performed By: #### L 500.4050, L100.0100, L506.1000, L501.9520, L500.4100 #### [facility] [address] [place], [address] Lymphocytes Auto (Unsp spec) [#/Vol]Ordered By: Leandro Lua on 11-21-2024 Lymphocytes (Bld) [#/Vol] 1.07 10*3/uL 0.83-4.51 [facility] MCV (mean corpuscular volume ) determinationOrdered By: Leandro Lua on 11-21-2024 MCV (RBC) [Entitic vol] 80.2 fL Low 81-99 [facility] Comment on above: Performed By: #### L 500.4050, L100.0100, L506.1000, L501.9520, L500.4100 #### [facility] [address] [place], [address] Mean corpuscular hemoglobin (MCH) determinationOrdered By: Leandro Chungok on 11-21-2024 MCH (RBC) [Entitic mass] 24.6 pg Low 27.0-32.0 [facility] Comment on above: Performed By: #### L 500.4050, L100.0100, L506.1000, L501.9520, L500.4100 #### [facility] [address] [place], [place], [id number] Mean corpuscular hemoglobin concentration (MCHC) determinationOrdered By: Leandro Stoney on 11-21-2024 MCHC (RBC) [Mass/Vol] 30.6 g/dL Low 32-36 [facility] Comment on above: Performed By: #### L 500.4050, L100.0100, L506.1000, L501.9520, L500.4100 #### [facility] [address] [place], [address] Mean platelet volume determi nationOrdered By: Leandro Stoney on 11-21-2024 Platelet mean volume (Bld) [Entitic vol] 9.8 fL Normal 6.2-12.0 [facility] Comment on above: Performed By: #### L 500.4050, L100.0100, L506.1000, L501.9520, L500.4100 #### [facility] [address] [place], [place], [address] Monocyte percentageOrdered B y: Leandro Lua on 11-21-2024 Monocytes/100 WBC (Bld) 12.4 % High 0-10 [facility] Comment on above: Performed By: #### L 500.4050, L100.0100, L506.1000, L501.9520, L500.4100 #### [facility] [address] [place], [place], [id number] Neutrophil percentageOrdered By: Leandro Lua on 11-21-2024 Neutrophils/100 WBC (Bld) 62.3 % Normal 47-70 [facility] Comment on above: Performed By: #### L 500.4050, L100.0100, L506.1000, L501.9520, L500.4100 #### [facility] [address] [place], [address] Nucleated red blood cell per centageOrdered By: Leandro Lua on 11-21-2024 Nucleated RBC/100 WBC (Bld) [Ratio] 0 % 0-5 [facility] Platelet countOrdered By: Scottie Lua on 11-21-2024 Platelets (Bld) [#/Vol] 357 10*3/uL Normal 150-450 [facility] Comment on above: Performed By: #### L 500.4050, L100.0100, L506.1000, L501.9520, L500.4100 #### [facility] [address] [place], [address] Potassium measurement (mass/ volume)Ordered By: Leandro Lua on 11-21-2024 Potassium [Moles/Vol] 4.0 mmol/L Normal 3.3-5.1 [facility] Comment on above: Performed By: #### L 500.4050, L100.0100, L506.1000, L501.9520, L500.4100 #### [facility] [address] [place], [address] Potassium (Unsp spec) [Mass/Vol] 4.0 mmol/L 3.3-5.1 [facility] Screening total cholesterol/ high density lipoprotein (HDL) cholesterol ratioOrdered By: Leandro Lua on 11-21-2024 Cholesterol.total/Choles terol in HDL [Mass ratio] 2.61 {ratio} [facility] Serum creatinine measurement (mass/volume)Ordered By: Leandro Lua on 11-21-2024 Creatinine [Mass/Vol] 0.48 mg/dL Low 0.70-1.20 [facility] Comment on above: Performed By: #### L 500.4050, L100.0100, L506.1000, L501.9520, L500.4100 #### [facility] [address] [place], [address] Serum globulin measurementOr dered By: Leandro Lua on 11-21-2024 Globulin (S) [Mass/Vol] 2.3 g/dL Normal 2.2-4.2 [facility] Comment on above: Performed By: #### L 500.4050, L100.0100, L506.1000, L501.9520, L500.4100 #### [facility] [address] [place], [address] Serum glucose measurement (m ass/volume)Ordered By: Leandro Lua on 11-21-2024 Glucose [Mass/Vol] 91 mg/dL Normal 70-[address] [facility] Comment on above: Performed By: #### L 500.4050, L100.0100, L506.1000, L501.9520, L500.4100 #### [facility] [address] [place], [address] Serum or plasma alanine zapata otransferase (ALT) measurementOrdered By: Leandro Lua on 11-21-2024 ALT [Catalytic activity/Vol] 16 U/L Normal <=34 [facility] Comment on above: Performed By: #### L 500.4050, L100.0100, L506.1000, L501.9520, L500.4100 #### [facility] [address] [place], [address] Serum or plasma albumin ashley urement (mass/volume)Ordered By: Leandro Lua on 11-21-2024 Albumin [Mass/Vol] 3.9 g/dL Normal 3.4-4.[address] [facility] Comment on above: Performed By: #### L 500.4050, L100.0100, L506.1000, L501.9520, L500.4100 #### [facility] [address] [place], [address] Serum or plasma albumin/glob ulin mass ratioOrdered By: Leandro Lua on 11-21-2024 Albumin/Globulin [Mass ratio] 1.7 {ratio} Normal 0.9-2.4 [facility] Comment on above: Performed By: #### L 500.4050, L100.0100, L506.1000, L501.9520, L500.4100 #### [facility] [address] [place], [place], [address] Serum or plasma alkaline isaiah sphatase measurementOrdered By: Leandro Lua on 11-21-2024 ALP [Catalytic activity/Vol] 68 U/L 35-104 [facility] Serum or plasma calcium ashley urement (mass/volume)Ordered By: Leandro Lua on 11-21-2024 Calcium [Mass/Vol] 8.9 mg/dL Normal 7.6-11.[address] [facility] Comment on above: Performed By: #### L 500.4050, L100.0100, L506.1000, L501.9520, L500.4100 #### [facility] [address] [place], [place], [id number] Serum or plasma cholesterol in HDL measurement (mass/volume)Ordered By: Leandro Lua on 11-21-2024 Cholesterol in HDL [Mass/Vol] 62 mg/dL Normal [facility] Comment on above: National Cholesterol Education Program (NCEP) guidelines:<40 mg/dL: Low HDL-cholesterol (major risk factor for CHD)>= 60 mg/dL: High HDL-cholesterol (negative risk factor for CHD)HDL-cholesterol is affected by a number of factors, e.g. smoking, exercise, hormones, sex and age. Result Comment: [place] onal Cholesterol Education Program (NCEP) guidelines: <40 mg/dL: Low HDL-cholesterol (major risk factor for CHD) >= 60 mg/dL: High HDL-cholesterol (negative risk factor for CHD) HDL-cholesterol is affected by a number of factors, e.g. smoking, exercise, hormones, sex and age. Performed By: #### L 500.4050, L100.0100, L506.1000, L501.9520, L500.4100 #### [facility] [address] [place], [address] Serum or plasma cholesterol measurement (mass/volume)Ordered By: Leandro Lua on 11-21-2024 Cholesterol [Mass/Vol] 162 mg/dL Normal <=200 [facility] Comment on above: Cholesterol level, D esirable <200 mg/dLBorderline high cholesterol 200-239 mg/dLHigh cholesterol >=240 mg/dLRecommendations of the NCEP Adult Treatment Panel for the following risk-cutoff thresholds for the [place] population. Result Comment: Chol esterol level, Desirable <200 mg/dL Borderline high cholesterol 200-239 mg/dL High cholesterol >=240 mg/dL Recommendations of the NCEP Adult Treatment Panel for the following risk-cutoff thresholds for the [place] population. Performed By: #### L 500.4050, L100.0100, L506.1000, L501.9520, L500.4100 #### [facility] [address] [place], [address] Serum or plasma urea nitroge n measurement (mass/volume)Ordered By: Leandro Lua on 11-21-2024 Urea nitrogen [Mass/Vol] 19 mg/dL Normal 4-19 [facility] Comment on above: Performed By: #### L 500.4050, L100.0100, L506.1000, L501.9520, L500.4100 #### [facility] [address] [place], [address] Sodium levelOrdered By: Leandro Lua on 11-21-2024 Sodium [Moles/Vol] 137 mmol/L Normal 133-[address] [facility] Comment on above: Performed By: #### L 500.4050, L100.0100, L506.1000, L501.9520, L500.4100 #### [facility] [address] [place], [address] TSH DL <= 0.005 mIU/L QnOrde red By: Leandro Lua on 11-21-2024 Thyroid Stimulating Hormone (TSH) 2.340 uIU/mL 0.300-4.200 [facility] TSH Qn 2.340 uIU/mL 0.300-4.200 [facility] Thyroid Stim Hormone (TSH)on 11-21-2024 TSH 2.340 uIU/mL Normal 0.300-4.200 [facility] Comment on above: Performed By: #### L 500.4050, L100.0100, L506.1000, L501.9520, L500.4100 #### [facility] [address] [place], [place], [address] Total proteinOrdered By: Leandro Lua on 11-21-2024 Protein [Mass/Vol] 6.2 g/dL 5.9-8.[address] [facility] Triglycerides measurementOrd ered By: Leandro Lua on 11-21-2024 Triglyceride [Mass/Vol] 76 mg/dL Normal [facility] Comment on above: The drugs N-Acetylcy steine and Metamizole may falsely depress this assay. Normal range: <150 mg/dLBorderline High: 150-199 mg/dLHigh: 200-499 mg/dLVery High: >500 mg/dL Result Comment: The drugs N-Acetylcysteine and Metamizole may falsely depress this assay. Normal range: <150 mg/dL Borderline High: 150-199 mg/dL High: 200-499 mg/dL Very High: >500 mg/dL Performed By: #### L 500.4050, L100.0100, L506.1000, L501.9520, L500.4100 #### [facility] [address] [place], [place], [id number] Vitamin D, 25-hydroxyOrdered By: Leandro Lua on 11-21-2024 Vitamin D 25-Hydroxy 36.2 ng/mL 30-100 [facility] Comment on above: Vitamin D StatusDefi ciency: <20 ng/mL (50nmol/L)Insufficiency: 20-30 ng/mL (50-75 nmol/L)Sufficiency: 30-100 ng/mL (75-250 nmol/L)Toxicity: >100 ng/mL (>250 nmol/L) Vitamin D,25 Hydroxyon 11-21 Vitamin D 25-OH 36.2 ng/mL Normal 30-100 [facility] Comment on above: Result Comment: Elizabeth min D Status Deficiency: <20 ng/mL (50nmol/L) Insufficiency: 20-30 ng/mL (50-75 nmol/L) Sufficiency: 30-100 ng/mL (75-250 nmol/L) Toxicity: >100 ng/mL (>250 nmol/L) Performed By: #### L 500.4050, L100.0100, L506.1000, L501.9520, L500.4100 #### [facility] [address] [place], [place], [address] White blood cell (WBC) count Ordered By: Leandro Lua on 11-21-2024 WBC (Bld) [#/Vol] 5.1 10*3/uL Normal 4.4-11.[address] [facility] Comment on above: Performed By: #### L 500.4050, L100.0100, L506.1000, L501.9520, L500.4100 #### [facility] [address] [place], [place], [id number] Influenza virus A and B and SARS-CoV-2 (COVID-19) and Respiratory syncytial virus RNAOrdered By: Leandro Lua on 10-17-2024 SARS-CoV-2 (COVID-19) RNA MATEO+probe Ql (Unsp spec) [facility] M100.678on 10-17-2024 M100.678 Pending SARS-CoV-2 (COVID 19) Negative INFLUENZA A Negative INFLUENZA B Negative RSV PCR Negative [facility] Comment on above: Performed By: #### M 100.678 ####[facility] [address] [place], [address] M100.678on 06-28-2024 M100.678 Pending SARS-CoV-2 (COVID 19) Negative INFLUENZA A Negative INFLUENZA B Negative RSV PCR Negative Normal [facility] Comment on above: Performed By: #### L 500.4050, L100.0100, L506.1000, L501.9520, L500.4100 #### [facility] [address] [place], [address] CBC W/Diff, Automatedon 10-0 7-4 Absolute Lymph 0.96 X10 3/uL Normal 0.83-4.51 [facility] Comment on above: Performed By: #### L 500.4050, L100.0100, L506.1000, L501.9520, L500.4100 #### [facility] [address] [place], [address] Absolute Neut 2.5 X10 3/uL Normal 2.0-7.7 [facility] Comment on above: Performed By: #### L 500.4050, L100.0100, L506.1000, L501.9520, L500.4100 #### [facility] [address] [place], [address] Basophils/100 WBC (Bld) 1.5 % High 0-1 [facility] Comment on above: Performed By: #### L 500.4050, L100.0100, L506.1000, L501.9520, L500.4100 #### [facility] [address] [place], [address] Eosinophils/100 WBC (Bld) 3.7 % Normal 0-5 [facility] Comment on above: Performed By: #### L 500.4050, L100.0100, L506.1000, L501.9520, L500.4100 #### [facility] [address] [place], [address] Erythrocyte distribution width (RBC) [Ratio] 16.2 % High 11.6-14.6 [facility] Comment on above: Performed By: #### L 500.4050, L100.0100, L506.1000, L501.9520, L500.4100 #### [facility] [address] [place], [address] Hematocrit (Bld) [Volume fraction] 36.3 % Low 37-47 [facility] Comment on above: Performed By: #### L 500.4050, L100.0100, L506.1000, L501.9520, L500.4100 #### [facility] [address] [place], [address] Hemoglobin (Bld) [Mass/Vol] 10.8 g/dL Low 12.0-15.0 [facility] Comment on above: Performed By: #### L 500.4050, L100.0100, L506.1000, L501.9520, L500.4100 #### [facility] [address] [place], [address] IG% 0.500 Normal 0.0-0.9 [facility] Comment on above: Result Comment: IG% - Immature Granulocytes (promyelocytes, myelocytes and metamyelocytes) > 1% indicates that a LEFT SHIFT is Present. Performed By: #### L 500.4050, L100.0100, L506.1000, L501.9520, L500.4100 #### [facility] [address] [place], [address] Lymphocytes/100 WBC (Bld) 23.9 % Normal 19-41 [facility] Comment on above: Performed By: #### L 500.4050, L100.0100, L506.1000, L501.9520, L500.4100 #### [facility] [address] [place], [address] MCH (RBC) [Entitic mass] 24.8 pg Low 27.0-32.0 [facility] Comment on above: Performed By: #### L 500.4050, L100.0100, L506.1000, L501.9520, L500.4100 #### [facility] [address] [place], [address] MCHC (RBC) [Mass/Vol] 29.8 g/dL Low 32-36 [facility] Comment on above: Performed By: #### L 500.4050, L100.0100, L506.1000, L501.9520, L500.4100 #### [facility] [address] [place], [address] MCV (RBC) [Entitic vol] 83.4 fL Normal 81-99 [facility] Comment on above: Performed By: #### L 500.4050, L100.0100, L506.1000, L501.9520, L500.4100 #### [facility] [address] [place], [address] Monocytes/100 WBC (Bld) 8.7 % Normal 0-10 [facility] Comment on above: Performed By: #### L 500.4050, L100.0100, L506.1000, L501.9520, L500.4100 #### [facility] [address] [place], [address] Neutrophils/100 WBC (Bld) 61.7 % Normal 47-70 [facility] Comment on above: Performed By: #### L 500.4050, L100.0100, L506.1000, L501.9520, L500.4100 #### [facility] [address] [place], [address] Nucleated RBC (Bld) [#/Vol] 0 10*3/uL Normal 0-5 [facility] Comment on above: Performed By: #### L 500.4050, L100.0100, L506.1000, L501.9520, L500.4100 #### [facility] [address] [place], [address] Platelet mean volume (Bld) [Entitic vol] 9.9 fL Normal 6.2-12.0 [facility] Comment on above: Performed By: #### L 500.4050, L100.0100, L506.1000, L501.9520, L500.4100 #### [facility] [address] [place], [address] Platelets (Bld) [#/Vol] 289 10*3/uL Normal 150-450 [facility] Comment on above: Performed By: #### L 500.4050, L100.0100, L506.1000, L501.9520, L500.4100 #### [facility] [address] [place], [address] RBC (Bld) [#/Vol] 4.35 10*6/uL Normal 4.2-5.4 [facility] Comment on above: Performed By: #### L 500.4050, L100.0100, L506.1000, L501.9520, L500.4100 #### [facility] [address] [place], [address] RDW SD 49.3 fl High 35.1-43.9 [facility] Comment on above: Performed By: #### L 500.4050, L100.0100, L506.1000, [id number], L500.4100 #### [facility] [address] [place], [address] WBC (Bld) [#/Vol] 4.0 10*3/uL Low 4.4-11.[address] [facility] Comment on above: Performed By: #### L 500.4050, L100.0100, L506.1000, [id number], L500.4100 #### [facility] [address] [place], [address] [facility] 05-22-2024 Albumin [Mass/Vol] 3.4 g/dL Normal 3.2-5.[address] [facility] Comment on above: Performed By: #### L 500.4050, L100.0100, L506.1000, [id number], L500.4100 #### [facility] [address] [place], [address] Albumin/Globulin [Mass ratio] 1.0 {ratio} Normal 0.9-2.4 [facility] Comment on above: Performed By: #### L 500.4050, L100.0100, L506.1000, L501.9520, L500.4100 #### [facility] [address] [place], [address] ALK P 74 U/L Normal 45-117 [facility] Comment on above: Performed By: #### L 500.4050, L100.0100, L506.1000, [id number], L500.4100 #### [facility] [address] [place], [address] ALT [Catalytic activity/Vol] 21 U/L Normal 13-56 [facility] Comment on above: Performed By: #### L 500.4050, L100.0100, L506.1000, L501.9520, L500.4100 #### [facility] [address] [place], [address] AST [Catalytic activity/Vol] 22 U/L Normal 15-37 [facility] Comment on above: Performed By: #### L 500.4050, L100.0100, L506.1000, L501.9520, L500.4100 #### [facility] [address] [place], [address] Bilirubin [Mass/Vol] 0.50 mg/dL Normal 0.20-1.00 [facility] Comment on above: Result Comment: For patients on eltrombopag therapy, use of Dimension [place] TBIL is not recommended. Performed By: #### L 500.4050, L100.0100, L506.1000, [id number], L500.4100 #### [facility] [address] [place], [address] BUN/CRE 30.1 RATIO High 10-20 [facility] Comment on above: Performed By: #### L 500.4050, L100.0100, L506.1000, [id number], L500.4100 #### [facility] [address] [place], [address] CA,Total 8.9 mg/dL Normal 8.5-10.1 [facility] Comment on above: Performed By: #### L 500.4050, L100.0100, L506.1000, [id number], L500.4100 #### [facility] [address] [place], [address] Chloride [Moles/Vol] 106 mmol/L Normal 98-107 [facility] Comment on above: Performed By: #### L 500.4050, L100.0100, L506.1000, L501.9520, L500.4100 #### [facility] [address] [place], [address] CO2 [Moles/Vol] 27.0 mmol/L Normal 21.0-32.0 [facility] Comment on above: Performed By: #### L 500.4050, L100.0100, L506.1000, [id number], L500.4100 #### [facility] [address] [place], [address] Creatinine [Mass/Vol] 0.60 mg/dL Normal 0.55-1.02 [facility] Comment on above: Result Comment: The validity of the calculated GFR GFRAA in patients over 70 years has not been determined. Clinical correlation is essential. Performed By: #### L 500.4050, L100.0100, L506.1000, L501.9520, L500.4100 #### [facility] [address] [place], [address] EST GFR - AA 123 mL/min Normal >60 [facility] Comment on above: Result Comment: Afri can Chinese GFR Calc Performed By: #### L 500.4050, L100.0100, L506.1000, L501.9520, L500.4100 #### [facility] [address] [place], [address] GAP 6 Normal 5-15 [facility] Comment on above: Performed By: #### L 500.4050, L100.0100, L506.1000, L501.9520, L500.4100 #### [facility] [address] [place], [address] GFR/1.73 sq M.predicted among non-blacks MDRD (S/P/Bld) [Vol rate/Area] 102 mL/min/{1.73_m2} Normal >60 [facility] Comment on above: Result Comment: Non- GFR Calc Performed By: #### L 500.4050, L100.0100, L506.1000, L501.9520, L500.4100 #### [facility] [address] [place], [address] Globulin (S) [Mass/Vol] 3.3 g/dL Normal 2.2-4.2 [facility] Comment on above: Performed By: #### L 500.4050, L100.0100, L506.1000, L501.9520, L500.4100 #### [facility] [address] [place], [address] Glucose [Mass/Vol] 96 mg/dL Normal 74-[address] [facility] Comment on above: Performed By: #### L 500.4050, L100.0100, L506.1000, L501.9520, L500.4100 #### [facility] [address] [place], [address] Potassium [Moles/Vol] 3.7 mmol/L Normal 3.5-5.1 [facility] Comment on above: Performed By: #### L 500.4050, L100.0100, L506.1000, L501.9520, L500.4100 #### [facility] [address], [address] Sodium [Moles/Vol] 139 mmol/L Normal 136-[address] [facility] Comment on above: Performed By: #### L 500.4050, L100.0100, L506.1000, L501.9520, L500.4100 #### [facility] [address] [place], [address] T PROT 6.7 g/dL Normal 6.4-8.2 [facility] Comment on above: Performed By: #### L 500.4050, L100.0100, L506.1000, L501.9520, L500.4100 #### [facility] [address] [place], [address] Urea nitrogen [Mass/Vol] 18 mg/dL Normal 7-18 [facility] Comment on above: Performed By: #### L 500.4050, L100.0100, L506.1000, L501.9520, L500.4100 #### [facility] [address] [place], [address] Lipid Profileon 05-22-2024 Cholesterol [Mass/Vol] 161 mg/dL Normal 200 [facility] Comment on above: Result Comment: <200 mg/dL Desirable 200-240 mg/dL Borderline >240 mg/dL High Risk Performed By: #### L 500.4050, L100.0100, L506.1000, L501.9520, L500.4100 #### [facility] [address] [place], [address] Cholesterol in HDL [Mass/Vol] 63 mg/dL Normal [facility] Comment on above: Result Comment: The drugs N-Acetylcysteine and Metamizole may falsely depress this assay. Reference Range HDL <40 mg/dL Low HDL Cholesterol HDL >or= 60 mg/dL High HDL Cholesterol Performed By: #### L 500.4050, L100.0100, L506.1000, L501.9520, L500.4100 #### [facility] [address] [place], [address] Cholesterol in LDL [Mass/Vol] 82 mg/dL Normal 0-130 [facility] Comment on above: Performed By: #### L 500.4050, L100.0100, L506.1000, L501.9520, L500.4100 #### [facility] [address] [place], [address] Cholesterol in VLDL [Mass/Vol] 16 mg/dL Normal 5-40 [facility] Comment on above: Performed By: #### L 500.4050, L100.0100, L506.1000, L501.9520, L500.4100 #### [facility] [address] [place], [address] Triglyceride [Mass/Vol] 82 mg/dL Normal [facility] Comment on above: Result Comment: The drugs N-Acetylcysteine and Metamizole may falsely depress this assay. Serum Triglycerides Reference Interval Normal <150 mg/dL Borderline high 150 - 199 mg/dL High 200 - 499 mg/dL Very High > or = 500 mg/dL Performed By: #### L 500.4050, L100.0100, L506.1000, L501.9520, L500.4100 #### [facility] [address] [place], [address] Thyroid Stim Hormone (TSH)on 05-22-2024 TSH 2.530 uIU/mL Normal 0.358-3.740 [facility] Comment on above: Performed By: #### L 500.4050, L100.0100, L506.1000, L501.9520, L500.4100 #### [facility] [address] [place], [address] Vitamin D,25 Hydroxyon 05-22 Vitamin D 25-OH 37.0 ng/mL Normal [facility] Comment on above: Result Comment: Elizabeth min D 25(OH) Status Range Deficiency <20 ng/mL (50nmol/L) Insufficiency 20 - 30 ng/mL (50 - 75 nmol/L) Sufficiency 30 - 100 ng/mL (75 - 250 nmol/L) Toxicity >100 ng/mL (>250 nmol/L) Performed By: #### L 500.4050, L100.0100, L506.1000, L501.9520, L500.4100 #### [facility] [address] [place], [place], [id number] Absolute lymphocyte countOrd ered By: Leandro Lua on 11-16-2023 Lymphocytes Auto (Unsp spec) [#/Vol] 0.84 10*3/uL 0.83-4.51 [facility] Automated lymphocyte count a s percentage of total leukocytesOrdered By: Leandro Lua on 11-16-2023 Lymphocytes/100 WBC Auto (Unsp spec) 17.6 % 19-41 [facility] Basophil percentageOrdered B y: Leandro Lua on 11-16-2023 Basophils/100 WBC (Bld) 1.3 % 0-1 [facility] Bilirubin [Mass/Vol] 0.50 mg/dL 0.20-1.00 [facility] Comment on above: For patients on eltr ombopag therapy, use of Dimension [place] TBIL is not recommended. Chloride [Moles/Vol] 105 mmol/L 98-107 [facility] Cholesterol [Mass/Vol] 153 mg/dL <200 [facility] Comment on above: <200 mg/dL Desirable 200-240 mg/dL Borderline >240 mg/dL High Risk Eosinophils/100 WBC (Bld) 3.6 % 0-5 [facility] Glucose [Mass/Vol] 91 mg/dL 74-[address] [facility] Hemoglobin (Bld) [Mass/Vol] 10.5 g/dL 12.0-15.0 [facility] Monocytes/100 WBC (Bld) 14.0 % 0-10 [facility] Neutrophils (Bld) [#/Vol] 3.0 10*3/uL 2.0-7.7 [facility] Neutrophils/100 WBC (Bld) 63.1 % 47-70 [facility] Potassium [Moles/Vol] 3.9 mmol/L 3.5-5.1 [facility] Protein [Mass/Vol] 6.8 g/dL 6.4-8.[address] [facility] Sodium [Moles/Vol] 138 mmol/L 136-[address] [facility] Triglyceride [Mass/Vol] 106 mg/dL <199 [facility] Comment on above: The drugs N-Acetylcy steine and Metamizole may falsely depress this assay.Serum Triglycerides Reference Interval Normal <150 mg/dL Borderline high 150 - 199 mg/dL High 200 - 499 mg/dL Very High > or = 500 mg/dL WBC (Bld) [#/Vol] 4.8 10*3/uL 4.4-11.[address] [facility] Determination of erythrocyte mean corpuscular volume (MCV)Ordered By: Leandro Lua on 11-16-2023 MCV (RBC) [Entitic vol] 83.4 fL 81-99 [facility] Erythrocyte distribution wid th ratioOrdered By: Leandro Lua 11-16-2023 Erythrocyte distribution width (RBC) [Ratio] 15.3 % 11.6-14.6 [facility] Erythrocyte distribution wid th standard deviationOrdered By: Leandro Lua on 11-16-2023 Erythrocyte distribution width (RBC) [Entitic vol] 46.4 fL 35.1-43.9 [facility] Hematocrit Auto (Bld) [Volum e fraction]Ordered By: Leandro Lua on 11-16-2023 Hematocrit (Bld) [Volume fraction] 34.7 % 37-47 [facility] Immature granulocytes/100 WB C Auto (Bld)Ordered By: Leandro Lua on 11-16-2023 Immature granulocytes/100 WBC (Bld) 0.400 % 0.0-0.9 [facility] Comment on above: IG% - Immature Granu locytes (promyelocytes, myelocytes and metamyelocytes) > 1% indicates that a LEFT SHIFT is Present. Laboratory - Chemistry and C hemistry - challengeOrdered By: Leandro Lua on 11-16-2023 Albumin/Globulin [Mass ratio] 0.9 {ratio} 0.9-2.4 [facility] ALP [Catalytic activity/Vol] 85 U/L 45-117 [facility] ALT [Catalytic activity/Vol] 20 U/L 13-56 [facility] Cholesterol in HDL [Mass/Vol] 66 mg/dL >40 [facility] Comment on above: The drugs N-Acetylcy steine and Metamizole may falsely depress this assay. Reference Range HDL <40 mg/dL Low HDL Cholesterol HDL >or= 60 mg/dL High HDL Cholesterol Cholesterol in LDL [Mass/Vol] 66 mg/dL 0-130 [facility] CO2 [Moles/Vol] 27.0 mmol/L 21.0-32.0 [facility] Globulin (S) [Mass/Vol] 3.6 g/dL 2.2-4.2 [facility] Urea nitrogen/Creatinine [Mass ratio] 24.7 mg/mg 10-20 [facility] - Hematology and Cell countsOrdered By: Leandro Lua on 11-16-2023 MCH (RBC) [Entitic mass] 25.2 pg 27.0-32.0 [facility] MCHC (RBC) [Mass/Vol] 30.3 g/dL 32-36 [facility] Nucleated RBC/100 WBC (Bld) [Ratio] 0 % 0-5 [facility] Platelet mean volume (Bld) [Entitic vol] 10.3 fL 6.2-12.0 [facility] Platelets (Bld) [#/Vol] 345 10*3/uL 150-450 [facility] No Panel InformationOrdered By: Leandro Lua on 11-16-2023 Estimated GFR (MDRD) Amer 131 mL/min >60 [facility] Comment on above: GFR Calc Estimated GFR (MDRD) Non-Af Amer 108 mL/min >60 [facility] Comment on above: Non- GFR Calc Vitamin D 25-Hydroxy 39.2 ng/mL [facility] Comment on above: Vitamin D 25(OH) Sta tus Range Deficiency <20 ng/mL (50nmol/L) Insufficiency 20 - 30 ng/mL (50 - 75 nmol/L) Sufficiency 30 - 100 ng/mL (75 - 250 nmol/L) Toxicity >100 ng/mL (>250 nmol/L) VLDL Cholesterol 21 mg/dL 5-40 [facility] RBC Auto (Bld) [#/Vol]Ordere d By: Leandro Lua on 11-16-2023 RBC (Bld) [#/Vol] 4.16 10*6/uL 4.2-5.4 [facility] Serum or plasma calcium ashley urement (mass/volume)Ordered By: Leandro Lua on 11-16-2023 Calcium [Mass/Vol] 8.7 mg/dL 8.5-10.[address] [facility] Serum or plasma creatinine m easurement (mass/volume)Ordered By: Leandro Lua on 11-16-2023 Creatinine [Mass/Vol] 0.57 mg/dL 0.55-1.02 [facility] Comment on above: The validity of the calculated GFR & GFRAA in patients over 70 years has not been determined. Clinical correlation is essential. Serum or plasma thyroid stim ulating hormone (TSH) measurement (units/volume)Ordered By: Leandro Lua on 11-16-2023 TSH Qn 2.47 uIU/mL 0.358-3.74 [facility] Serum or plasma urea nitroge n measurement (mass/volume)Ordered By: Leandro Lua on 11-16-2023 Urea nitrogen [Mass/Vol] 14 mg/dL 7-18 [facility] Thin prep Papanicolaou smear with manual screeningOrdered By: Leandro Lua on 11-16-2023 Thin prep Papanicolaou smear with manual screening 3.2 g/dL 3.2-5.0 [facility] Thin prep Papanicolaou smear with manual screening 23 U/L 15-37 [facility] Thin prep Papanicolaou smear with manual screening 6 5-15 [facility] - Microbiology an d Antimicrobial susceptibilityOrdered By: Leandro Lua on 08-05-2023 SARS-CoV-2 (COVID-19) RNA MATEO+probe Ql (Unsp spec) [facility] No Panel InformationOrdered By: Leandro Lua on 08-05-2023 Influenza Types A,B Direct FA (MAXI) [facility] RSV Ag EIAOrdered By: Leandro garcia on 08-05-2023 RSV Ag Immune stain Ql (Tiss) [facility] Absolute lymphocyte countOrd ered By: Leandro Lua on 05-18-2023 Lymphocytes Auto (Unsp spec) [#/Vol] 1.04 10*3/uL 0.83-4.51 [facility] Basophil percentageOrdered B y: Leandro Lua on 05-18-2023 Basophils/100 WBC (Bld) 0.6 % 0-1 [facility] Bilirubin [Mass/Vol] 0.50 mg/dL 0.20-1.00 [facility] Comment on above: For patients on eltr ombopag therapy, use of Dimension [place] TBIL is not recommended. Chloride [Moles/Vol] 106 mmol/L 98-107 [facility] Eosinophils/100 WBC (Bld) 1.7 % 0-5 [facility] Glucose [Mass/Vol] 101 mg/dL 74-[address] [facility] Comment on above: Fasting Glucose resu lt from 100 to 125 mg/dL suggests IMPAIRED HOMEOSTASIS per A.D.A. criteria. Neutrophils (Bld) [#/Vol] 3.0 10*3/uL 2.0-7.7 [facility] Neutrophils/100 WBC (Bld) 65.0 % 47-70 [facility] Potassium [Moles/Vol] 3.9 mmol/L 3.5-5.1 [facility] Protein [Mass/Vol] 6.7 g/dL 6.4-8.[address] [facility] Sodium [Moles/Vol] 139 mmol/L 136-[address] [facility] WBC (Bld) [#/Vol] 4.7 10*3/uL 4.4-11.[address] [facility] Blood erythrocytes count (nu mber/volume)Ordered By: Leandro Lua on 05-18-2023 RBC (Bld) [#/Vol] 4.15 10*6/uL 4.2-5.4 [facility] Blood hemoglobin measurement (mass/volume)Ordered By: Leandro Lua on 05-18-2023 Hemoglobin (Bld) [Mass/Vol] 10.9 g/dL 12.0-15.0 [facility] Blood lymphocytes/100 leukoc ytesOrdered By: Leandro Lua on 05-18-2023 Lymphocytes/100 WBC (Bld) 22.4 % 19-41 [facility] Blood monocytes/100 leukocyt esOrdered By: Leandro Lua on 05-18-2023 Monocytes/100 WBC (Bld) 10.1 % 0-10 [facility] Blood platelet mean volumeOr dered By: Leandro Lua on 05-18-2023 Platelet mean volume (Bld) [Entitic vol] 10.3 fL 6.2-12.0 [facility] Culture, urineOrdered By: Scottie Lua on 05-18-2023 Bacteria identified Cx Nom (U) Mixed Gram Pos & Gram Neg Org [facility] Determination of erythrocyte mean corpuscular volume (MCV)Ordered By: Leandro Lua on 05-18-2023 MCV (RBC) [Entitic vol] 87.5 fL 81-99 [facility] Hematocrit Auto (Bld) [Volum e fraction]Ordered By: Leandro Lua on 05-18-2023 Hematocrit (Bld) [Volume fraction] 36.3 % 37-47 [facility] - Chemistry and C hemistry - challengeOrdered By: Leandro Lua on 05-18-2023 ALP [Catalytic activity/Vol] 92 U/L 45-117 [facility] ALT [Catalytic activity/Vol] 24 U/L 13-56 [facility] CO2 [Moles/Vol] 28.0 mmol/L 21.0-32.0 [facility] Globulin (S) [Mass/Vol] 3.3 g/dL 2.2-4.2 [facility] Urea nitrogen/Creatinine [Mass ratio] 34.1 mg/mg 10-20 [facility] - Hematology and Cell countsOrdered By: Leandro Lua on 05-18-2023 Erythrocyte distribution width (RBC) [Entitic vol] 47.0 fL 35.1-43.9 [facility] Erythrocyte distribution width (RBC) [Ratio] 14.7 % 11.6-14.6 [facility] Immature granulocytes/100 WBC (Bld) 0.200 % 0.0-0.9 [facility] Comment on above: IG% - Immature Granu locytes (promyelocytes, myelocytes and metamyelocytes) > 1% indicates that a LEFT SHIFT is Present. MCH (RBC) [Entitic mass] 26.3 pg 27.0-32.0 [facility] Nucleated RBC/100 WBC (Bld) [Ratio] 0 % 0-5 [facility] MCHC Auto (RBC) [Mass/Vol]Or dered By: Leandro Lua on 05-18-2023 MCHC (RBC) [Mass/Vol] 30.0 g/dL 32-36 [facility] No Panel InformationOrdered By: Leandro Lua on 05-18-2023 Estimated GFR (MDRD) Amer 134 mL/min >60 [facility] Comment on above: GFR Calc Estimated GFR (MDRD) Non-Af Amer 110 mL/min >60 [facility] Comment on above: Non- GFR Calc Thyroid Stimulating Hormone (TSH) 2.36 uIU/mL 0.358-3.74 [facility] Vitamin D 25-Hydroxy 34.7 ng/mL [facility] Comment on above: Vitamin D 25(OH) Sta tus Range Deficiency <20 ng/mL (50nmol/L) Insufficiency 20 - 30 ng/mL (50 - 75 nmol/L) Sufficiency 30 - 100 ng/mL (75 - 250 nmol/L) Toxicity >100 ng/mL (>250 nmol/L) Platelets bldOrdered By: Leandro Lua on 05-18-2023 Platelets (Bld) [#/Vol] 293 10*3/uL 150-450 [facility] Serum or plasma albumin ashley urement (mass/volume)Ordered By: Leandro Lua on 05-18-2023 Albumin [Mass/Vol] 3.4 g/dL 3.2-5.[address] [facility] Serum or plasma albumin/glob ulin mass ratioOrdered By: Leandro Lua on 05-18-2023 Albumin/Globulin [Mass ratio] 1.0 {ratio} 0.9-2.4 [facility] Serum or plasma calcium ashley urement (mass/volume)Ordered By: Leandro Lua on 05-18-2023 Calcium [Mass/Vol] 8.6 mg/dL 8.5-10.[address] [facility] Serum or plasma creatinine m easurement (mass/volume)Ordered By: Leandro Lua on 05-18-2023 Creatinine [Mass/Vol] 0.56 mg/dL 0.55-1.02 [facility] Comment on above: The validity of the calculated GFR & GFRAA in patients over 70 years has not been determined. Clinical correlation is essential. Serum or plasma urea nitroge n measurement (mass/volume)Ordered By: Leandro Lua on 05-18-2023 Urea nitrogen [Mass/Vol] 19 mg/dL 7-18 [facility] Thin prep Papanicolaou smear with manual screeningOrdered By: Leandro Lua on 05-18-2023 Thin prep Papanicolaou smear with manual screening 23 U/L 15-37 [facility] Thin prep Papanicolaou smear with manual screening 5 5-15 [facility] Absolute lymphocyte countOrd ered By: Dr. Lua on 08-13-2022 Lymphocytes Auto (Unsp spec) [#/Vol] 0.91 10*3/uL 0.83-4.51 [facility] Basophil percentageOrdered B y: Dr. Lua on 08-13-2022 Basophils/100 WBC (Bld) 0.6 % 0-1 [facility] Bilirubin [Mass/Vol] 0.50 mg/dL 0.20-1.00 [facility] Comment on above: For patients on eltr ombopag therapy, use of Dimension [place] TBIL is not recommended. Chloride [Moles/Vol] 105 mmol/L 98-107 [facility] Eosinophils/100 WBC (Bld) 1.3 % 0-5 [facility] Glucose [Mass/Vol] 103 mg/dL 74-[address] [facility] Comment on above: Fasting Glucose resu lt from 100 to 125 mg/dL suggests IMPAIRED HOMEOSTASIS per A.D.A. criteria. Neutrophils (Bld) [#/Vol] 3.7 10*3/uL 2.0-7.7 [facility] Neutrophils/100 WBC (Bld) 70.9 % 47-70 [facility] Potassium [Moles/Vol] 3.7 mmol/L 3.5-5.1 [facility] Protein [Mass/Vol] 6.8 g/dL 6.4-8.[address] [facility] Sodium [Moles/Vol] 136 mmol/L 136-[address] [facility] WBC (Bld) [#/Vol] 5.3 10*3/uL 4.4-11.[address] [facility] Blood erythrocytes count (nu mber/volume)Ordered By: Dr. Lua on 08-13-2022 RBC (Bld) [#/Vol] 4.19 10*6/uL 4.2-5.4 [facility] Blood hemoglobin measurement (mass/volume)Ordered By: Dr. Lua on 08-13-2022 Hemoglobin (Bld) [Mass/Vol] 12.0 g/dL 12.0-15.0 [facility] Blood lymphocytes/100 leukoc ytesOrdered By: Dr. Lua on 08-13-2022 Lymphocytes/100 WBC (Bld) 17.3 % 19-41 [facility] Blood monocytes/100 leukocyt esOrdered By: Dr. Lua on 08-13-2022 Monocytes/100 WBC (Bld) 9.5 % 0-10 [facility] Blood platelet mean volumeOr dered By: Dr. Lua on 08-13-2022 Platelet mean volume (Bld) [Entitic vol] 11.0 fL 6.2-12.0 [facility] Determination of erythrocyte mean corpuscular volume (MCV)Ordered By: Dr. Lua on 08-13-2022 MCV (RBC) [Entitic vol] 91.2 fL 81-99 [facility] Hematocrit Auto (Bld) [Volum e fraction]Ordered By: Dr. Lua on 08-13-2022 Hematocrit (Bld) [Volume fraction] 38.2 % 37-47 [facility] - Chemistry and C hemistry - challengeOrdered By: Dr. Lua on 08-13-2022 ALP [Catalytic activity/Vol] 77 U/L 45-117 [facility] ALT [Catalytic activity/Vol] 29 U/L 13-56 [facility] CO2 [Moles/Vol] 24.0 mmol/L 21.0-32.0 [facility] Globulin (S) [Mass/Vol] 3.5 g/dL 2.2-4.2 [facility] Urea nitrogen/Creatinine [Mass ratio] 32.1 mg/mg 10-20 [facility] - Hematology and Cell countsOrdered By: Dr. Lua on 08-13-2022 Erythrocyte distribution width (RBC) [Entitic vol] 46.9 fL 35.1-43.9 [facility] Erythrocyte distribution width (RBC) [Ratio] 14.0 % 11.6-14.6 [facility] Immature granulocytes/100 WBC (Bld) 0.400 % 0.0-0.9 [facility] Comment on above: IG% - Immature Granu locytes (promyelocytes, myelocytes and metamyelocytes) > 1% indicates that a LEFT SHIFT is Present. MCH (RBC) [Entitic mass] 28.6 pg 27.0-32.0 [facility] Nucleated RBC/100 WBC (Bld) [Ratio] 0 % 0-5 [facility] MCHC Auto (RBC) [Mass/Vol]Or dered By: Dr. Lua on 08-13-2022 MCHC (RBC) [Mass/Vol] 31.4 g/dL 32-36 [facility] No Panel InformationOrdered By: Dr. Lua on 08-13-2022 Estimated GFR (MDRD) Amer 125 mL/min >60 [facility] Comment on above: GFR Calc Estimated GFR (MDRD) Non-Af Amer 103 mL/min >60 [facility] Comment on above: Non- GFR Calc Thyroid Stimulating Hormone (TSH) 2.96 uIU/mL 0.358-3.74 [facility] Vitamin D 25-Hydroxy 32.1 ng/mL [facility] Comment on above: Vitamin D 25(OH) Sta tus Range Deficiency <20 ng/mL (50nmol/L) Insufficiency 20 - 30 ng/mL (50 - 75 nmol/L) Sufficiency 30 - 100 ng/mL (75 - 250 nmol/L) Toxicity >100 ng/mL (>250 nmol/L) Platelets bldOrdered By: Dr. Lua on 08-13-2022 Platelets (Bld) [#/Vol] 293 10*3/uL 150-450 [facility] Serum or plasma albumin ashley urement (mass/volume)Ordered By: Dr. Lua on 08-13-2022 Albumin [Mass/Vol] 3.3 g/dL 3.2-5.[address] [facility] Serum or plasma albumin/glob ulin mass ratioOrdered By: Dr. Lua on 08-13-2022 Albumin/Globulin [Mass ratio] 0.9 {ratio} 0.9-2.4 [facility] Serum or plasma calcium ashley urement (mass/volume)Ordered By: Dr. Lua on 08-13-2022 Calcium [Mass/Vol] 8.6 mg/dL 8.5-10.[address] [facility] Serum or plasma creatinine m easurement (mass/volume)Ordered By: Dr. Lua on 08-13-2022 Creatinine [Mass/Vol] 0.59 mg/dL 0.55-1.02 [facility] Comment on above: The validity of the calculated GFR & GFRAA in patients over 70 years has not been determined. Clinical correlation is essential. Serum or plasma urea nitroge n measurement (mass/volume)Ordered By: Dr. Lua on 08-13-2022 Urea nitrogen [Mass/Vol] 19 mg/dL 7-18 [facility] Thin prep Papanicolaou smear with manual screeningOrdered By: Dr. Lua on 08-13-2022 Thin prep Papanicolaou smear with manual screening 21 U/L 15-37 [facility] Thin prep Papanicolaou smear with manual screening 7 5-15 [facility] Absolute lymphocyte countOrd ered By: Dr. Lua on 05-11-2022 Lymphocytes Auto (Unsp spec) [#/Vol] 1.15 10*3/uL 0.83-4.51 [facility] Basophil percentageOrdered B y: Dr. Lua on 05-11-2022 Basophils/100 WBC (Bld) 0.8 % 0-1 [facility] Bilirubin [Mass/Vol] 0.60 mg/dL 0.20-1.00 [facility] Comment on above: For patients on eltr ombopag therapy, use of Dimension [place] TBIL is not recommended. Chloride [Moles/Vol] 105 mmol/L 98-107 [facility] Eosinophils/100 WBC (Bld) 1.3 % 0-5 [facility] Glucose [Mass/Vol] 97 mg/dL 74-[address] [facility] Neutrophils (Bld) [#/Vol] 3.5 10*3/uL 2.0-7.7 [facility] Neutrophils/100 WBC (Bld) 66.4 % 47-70 [facility] Potassium [Moles/Vol] 3.9 mmol/L 3.5-5.1 [facility] Protein [Mass/Vol] 6.9 g/dL 6.4-8.[address] [facility] Sodium [Moles/Vol] 142 mmol/L 136-[address] [facility] WBC (Bld) [#/Vol] 5.2 10*3/uL 4.4-11.[address] [facility] Blood erythrocytes count (nu mber/volume)Ordered By: Dr. Lua on 05-11-2022 RBC (Bld) [#/Vol] 4.13 10*6/uL 4.2-5.4 [facility] Blood hemoglobin measurement (mass/volume)Ordered By: Dr. Lua on 05-11-2022 Hemoglobin (Bld) [Mass/Vol] 12.5 g/dL 12.0-15.0 [facility] Blood lymphocytes/100 leukoc ytesOrdered By: Dr. Lua on 05-11-2022 Lymphocytes/100 WBC (Bld) 22.1 % 19-41 [facility] Blood monocytes/100 leukocyt esOrdered By: Dr. Lua on 05-11-2022 Monocytes/100 WBC (Bld) 8.4 % 0-10 [facility] Blood platelet mean volumeOr dered By: Dr. Lua on 05-11-2022 Platelet mean volume (Bld) [Entitic vol] 10.6 fL 6.2-12.0 [facility] Determination of erythrocyte mean corpuscular volume (MCV)Ordered By: Dr. Lua on 05-11-2022 MCV (RBC) [Entitic vol] 92.7 fL 81-99 [facility] Hematocrit Auto (Bld) [Volum e fraction]Ordered By: Dr. Lua on 05-11-2022 Hematocrit (Bld) [Volume fraction] 38.3 % 37-47 [facility] Laboratory - Chemistry and C hemistry - challengeOrdered By: Dr. Lua on 05-11-2022 ALP [Catalytic activity/Vol] 76 U/L 45-117 [facility] ALT [Catalytic activity/Vol] 28 U/L 13-56 [facility] CO2 [Moles/Vol] 30.0 mmol/L 21.0-32.0 [facility] Globulin (S) [Mass/Vol] 3.6 g/dL 2.2-4.2 [facility] Urea nitrogen/Creatinine [Mass ratio] 25.7 mg/mg 10-20 [facility] Laboratory - Hematology and Cell countsOrdered By: Dr. Lua on 05-11-2022 Erythrocyte distribution width (RBC) [Entitic vol] 49.6 fL 35.1-43.9 [facility] Erythrocyte distribution width (RBC) [Ratio] 14.5 % 11.6-14.6 [facility] Immature granulocytes/100 WBC (Bld) 1.000 % 0.0-0.9 [facility] Comment on above: IG% - Immature Granu locytes (promyelocytes, myelocytes and metamyelocytes) > 1% indicates that a LEFT SHIFT is Present. MCH (RBC) [Entitic mass] 30.3 pg 27.0-32.0 [facility] Nucleated RBC/100 WBC (Bld) [Ratio] 0 % 0-5 [facility] MCHC Auto (RBC) [Mass/Vol]Or dered By: Dr. Lua on 05-11-2022 MCHC (RBC) [Mass/Vol] 32.6 g/dL 32-36 [facility] No Panel InformationOrdered By: Dr. Lua on 05-11-2022 Estimated GFR (MDRD) Amer 118 mL/min >60 [facility] Comment on above: GFR Calc Estimated GFR (MDRD) Non-Af Amer 97 mL/min >60 [facility] Comment on above: Non- GFR Calc Thyroid Stimulating Hormone (TSH) 2.03 uIU/mL 0.358-3.74 [facility] Vitamin D 25-Hydroxy 28.5 ng/mL [facility] Comment on above: Vitamin D 25(OH) Sta tus Range Deficiency <20 ng/mL (50nmol/L) Insufficiency 20 - 30 ng/mL (50 - 75 nmol/L) Sufficiency 30 - 100 ng/mL (75 - 250 nmol/L) Toxicity >100 ng/mL (>250 nmol/L) Platelets bldOrdered By: Dr. Lua on 05-11-2022 Platelets (Bld) [#/Vol] 282 10*3/uL 150-450 [facility] Serum or plasma albumin ashley urement (mass/volume)Ordered By: Dr. Lua on 05-11-2022 Albumin [Mass/Vol] 3.3 g/dL 3.2-5.[address] [facility] Serum or plasma albumin/glob ulin mass ratioOrdered By: Dr. Lua on 05-11-2022 Albumin/Globulin [Mass ratio] 0.9 {ratio} 0.9-2.4 [facility] Serum or plasma calcium ashley urement (mass/volume)Ordered By: Dr. Lua on 05-11-2022 Calcium [Mass/Vol] 9.1 mg/dL 8.5-10.[address] [facility] Serum or plasma creatinine m easurement (mass/volume)Ordered By: Dr. Lua on 05-11-2022 Creatinine [Mass/Vol] 0.62 mg/dL 0.55-1.02 [facility] Comment on above: The validity of the calculated GFR & GFRAA in patients over 70 years has not been determined. Clinical correlation is essential. Serum or plasma urea nitroge n measurement (mass/volume)Ordered By: Dr. Lua on 05-11-2022 Urea nitrogen [Mass/Vol] 16 mg/dL 7-18 [facility] Thin prep Papanicolaou smear with manual screeningOrdered By: Dr. Lua on 05-11-2022 Thin prep Papanicolaou smear with manual screening 24 U/L 15-37 [facility] Thin prep Papanicolaou smear with manual screening 7 5-15 [facility] Basophil percentageon 2021 Chloride [Moles/Vol] 106 mmol/L 98-107 [facility] Work Phone: Glucose [Mass/Vol] 81 mg/dL 74-[address] [facility] Work Phone: Potassium [Moles/Vol] 4.1 mmol/L 3.5-5.1 [facility] Work Phone: Sodium [Moles/Vol] 138 mmol/L 136-[address] [facility] Work Phone: Laboratory - Chemistry and C hemistry - challengeon 03-09-2022 CO2 [Moles/Vol] 27.0 mmol/L 21.0-32.0 [facility] Work Phone: Urea nitrogen/Creatinine [Mass ratio] 31.3 mg/mg 10-20 [facility] Work Phone: No Panel Informationon 03-09 Estimated GFR (MDRD) Amer 129 mL/min >60 [facility] Work Phone: Comment on above: GFR Calc Estimated GFR (MDRD) Non-Af Amer 107 mL/min >60 [facility] Work Phone: Comment on above: Non- GFR Calc Serum or plasma calcium ashley urement (mass/volume)on 03-09-2022 Calcium [Mass/Vol] 8.8 mg/dL 8.5-10.[address] [facility] Work Phone: Serum or plasma creatinine m easurement (mass/volume)on 03-09-2022 Creatinine [Mass/Vol] 0.58 mg/dL 0.55-1.02 [facility] Work Phone: Comment on above: The validity of the calculated GFR & GFRAA in patients over 70 years has not been determined. Clinical correlation is essential. Serum or plasma urea nitroge n measurement (mass/volume)on 03-09-2022 Urea nitrogen [Mass/Vol] 18 mg/dL 7-18 [facility] Work Phone: Thin prep Papanicolaou smear with manual screeningon 03-09-2022 Thin prep Papanicolaou smear with manual screening 5 5-15 [facility] Work Phone: Laboratory - Microbiology an d Antimicrobial susceptibilityon 02-27-2022 SARS-CoV-2 (COVID-19) RNA MATEO+probe Ql (Unsp spec) Not detected Not Detect [facility] Work Phone: Comment on above: Normal Reference Ran ge: Not DetectedMethod:(RT-PCR) real-time reverse transcriptase PCRLuminex CELINA Instrument*The Food and Drug Administration (FDA) has issued an Emergency Use Authorization (EAU) for the CELINA SARS-CoV-2 Assay for the rapid detection of the virus that causes COVID-19. This test has been validated, but the FDAs independent review of this validation is pending.*Negative results do not preclude infection and should not be used as the sole basis for treatment or patient management. Optimum specimen types and timing for peak viral levels during infections caused by SARS-CoV-2 have not been determined. Collection of multiple specimens from the same patient may be necessary to detect the virus. The possibility of a false negative result should be considered if the patient has clinical presentation or has had recent exposure. Absolute lymphocyte counton 02-26-2022 Lymphocytes Auto (Unsp spec) [#/Vol] 1.07 10*3/uL 0.83-4.51 [facility] Work Phone: Basophil percentageon 2021 Basophils/100 WBC (Bld) 0.5 % 0-1 [facility] Work Phone: Chloride [Moles/Vol] 96 mmol/L 98-107 [facility] Work Phone: Eosinophils/100 WBC (Bld) 1.2 % 0-5 [facility] Work Phone: Glucose [Mass/Vol] 87 mg/dL 74-[address] [facility] Work Phone: Neutrophils (Bld) [#/Vol] 5.6 10*3/uL 2.0-7.7 [facility] Work Phone: Neutrophils/100 WBC (Bld) 74.7 % 47-70 [facility] Work Phone: Potassium [Moles/Vol] 3.1 mmol/L 3.5-5.1 [facility] Work Phone: Sodium [Moles/Vol] 135 mmol/L 136-[address] [facility] Work Phone: WBC (Bld) [#/Vol] 7.5 10*3/uL 4.4-11.[address] [facility] Work Phone: Blood erythrocytes count (nu mber/volume)on 02-26-2022 RBC (Bld) [#/Vol] 4.12 10*6/uL 4.2-5.4 [facility] Work Phone: Blood hemoglobin measurement (mass/volume)on 02-26-2022 Hemoglobin (Bld) [Mass/Vol] 12.5 g/dL 12.0-15.0 [facility] Work Phone: Blood lymphocytes/100 leukoc yteson 02-26-2022 Lymphocytes/100 WBC (Bld) 14.3 % 19-41 [facility] Work Phone: Blood monocytes/100 leukocyt eson 02-26-2022 Monocytes/100 WBC (Bld) 8.8 % 0-10 [facility] Work Phone: Blood platelet mean volumeon 02-26-2022 Platelet mean volume (Bld) [Entitic vol] 10.7 fL 6.2-12.0 [facility] Work Phone: Determination of erythrocyte mean corpuscular volume (MCV)on 02-26-2022 MCV (RBC) [Entitic vol] 89.8 fL 81-99 [facility] Work Phone: Hematocrit Auto (Bld) [Volum e fraction]on 02-26-2022 Hematocrit (Bld) [Volume fraction] 37.0 % 37-47 [facility] Work Phone: Laboratory - Chemistry and C hemistry - challengeon 02-26-2022 CO2 [Moles/Vol] 32.0 mmol/L 21.0-32.0 [facility] Work Phone: Urea nitrogen/Creatinine [Mass ratio] 32.6 mg/mg 10-20 [facility] Work Phone: Laboratory - Hematology and Cell countson 02-26-2022 Erythrocyte distribution width (RBC) [Entitic vol] 46.3 fL 35.1-43.9 [facility] Work Phone: Erythrocyte distribution width (RBC) [Ratio] 14.1 % 11.6-14.6 [facility] Work Phone: Immature granulocytes/100 WBC (Bld) 0.500 % 0.0-0.9 [facility] Work Phone: Comment on above: IG% - Immature Granu locytes (promyelocytes, myelocytes and metamyelocytes) > 1% indicates that a LEFT SHIFT is Present. MCH (RBC) [Entitic mass] 30.3 pg 27.0-32.0 [facility] Work Phone: Nucleated RBC/100 WBC (Bld) [Ratio] 0 % 0-5 [facility] Work Phone: MCHC Auto (RBC) [Mass/Vol]on 02-26-2022 MCHC (RBC) [Mass/Vol] 33.8 g/dL 32-36 [facility] Work Phone: No Panel Informationon 02-26 Estimated GFR (MDRD) Amer 127 mL/min >60 [facility] Work Phone: Comment on above: GFR Calc Estimated GFR (MDRD) Non-Af Amer 105 mL/min >60 [facility] Work Phone: Comment on above: Non- GFR Calc Platelets bldon 02-26-2022 Platelets (Bld) [#/Vol] 264 10*3/uL 150-450 [facility] Work Phone: Serum or plasma calcium ashley urement (mass/volume)on 02-26-2022 Calcium [Mass/Vol] 9.0 mg/dL 8.5-10.[address] [facility] Work Phone: Serum or plasma creatinine m easurement (mass/volume)on 02-26-2022 Creatinine [Mass/Vol] 0.58 mg/dL 0.55-1.02 [facility] Work Phone: Comment on above: The validity of the calculated GFR & GFRAA in patients over 70 years has not been determined. Clinical correlation is essential. Serum or plasma urea nitroge n measurement (mass/volume)on 02-26-2022 Urea nitrogen [Mass/Vol] 19 mg/dL 7-18 [facility] Work Phone: Thin prep Papanicolaou smear with manual screeningon 02-26-2022 Thin prep Papanicolaou smear with manual screening 7 5-15 [facility] Work Phone: Absolute lymphocyte counton 02-02-2022 Lymphocytes Auto (Unsp spec) [#/Vol] 1.10 10*3/uL 0.83-4.51 [facility] Work Phone: Basophil percentageon 2021 Basophils/100 WBC (Bld) 0.6 % 0-1 [facility] Work Phone: Bilirubin [Mass/Vol] 0.60 mg/dL 0.20-1.00 [facility] Work Phone: Comment on above: For patients on eltr ombopag therapy, use of Dimension [place] TBIL is not recommended. Chloride [Moles/Vol] 102 mmol/L 98-107 [facility] Work Phone: Eosinophils/100 WBC (Bld) 1.5 % 0-5 [facility] Work Phone: Glucose [Mass/Vol] 98 mg/dL 74-[address] [facility] Work Phone: Neutrophils (Bld) [#/Vol] 4.7 10*3/uL 2.0-7.7 [facility] Work Phone: Neutrophils/100 WBC (Bld) 71.1 % 47-70 [facility] Work Phone: Potassium [Moles/Vol] 4.0 mmol/L 3.5-5.1 [facility] Work Phone: Protein [Mass/Vol] 6.6 g/dL 6.4-8.[address] [facility] Work Phone: Sodium [Moles/Vol] 136 mmol/L 136-[address] [facility] Work Phone: WBC (Bld) [#/Vol] 6.6 10*3/uL 4.4-11.[address] [facility] Work Phone: Blood erythrocytes count (nu mber/volume)on 02-02-2022 RBC (Bld) [#/Vol] 3.99 10*6/uL 4.2-5.4 [facility]: [phone] Blood hemoglobin measurement (mass/volume)on 02-02-2022 Hemoglobin (Bld) [Mass/Vol] 12.2 g/dL 12.0-15.0 [facility] Work Phone: Blood lymphocytes/100 leukoc yteson 02-02-2022 Lymphocytes/100 WBC (Bld) 16.6 % 19-41 [facility] Work Phone: Blood monocytes/100 leukocyt eson 02-02-2022 Monocytes/100 WBC (Bld) 9.7 % 0-10 [facility] Work Phone: Blood platelet mean volumeon 02-02-2022 Platelet mean volume (Bld) [Entitic vol] 10.7 fL 6.2-12.0 [facility] Work Phone: Determination of erythrocyte mean corpuscular volume (MCV)on 02-02-2022 MCV (RBC) [Entitic vol] 94.5 fL 81-99 [facility] Work Phone: Hematocrit Auto (Bld) [Volum e fraction]on 02-02-2022 Hematocrit (Bld) [Volume fraction] 37.7 % 37-47 [facility] Work Phone: Laboratory - Chemistry and C hemistry - challengeon 02-02-2022 ALP [Catalytic activity/Vol] 69 U/L 45-117 [facility] Work Phone: ALT [Catalytic activity/Vol] 25 U/L 13-56 [facility] Work Phone: CO2 [Moles/Vol] 25.0 mmol/L 21.0-32.0 [facility] Work Phone: Globulin (S) [Mass/Vol] 3.3 g/dL 2.2-4.2 [facility] Work Phone: Urea nitrogen/Creatinine [Mass ratio] 29.4 mg/mg 10-20 [facility] Work Phone: Laboratory - Hematology and Cell countson 02-02-2022 Erythrocyte distribution width (RBC) [Entitic vol] 47.1 fL 35.1-43.9 [facility] Work Phone: Erythrocyte distribution width (RBC) [Ratio] 13.4 % 11.6-14.6 [facility] Work Phone: Immature granulocytes/100 WBC (Bld) 0.500 % 0.0-0.9 [facility] Work Phone: Comment on above: IG% - Immature Granu locytes (promyelocytes, myelocytes and metamyelocytes) > 1% indicates that a LEFT SHIFT is Present. MCH (RBC) [Entitic mass] 30.6 pg 27.0-32.0 [facility] Work Phone: Nucleated RBC/100 WBC (Bld) [Ratio] 0 % 0-5 [facility] Work Phone: MCHC Auto (RBC) [Mass/Vol]on 02-02-2022 MCHC (RBC) [Mass/Vol] 32.4 g/dL 32-36 [facility] Work Phone: No Panel Informationon 02-02 Estimated GFR (MDRD) Amer 129 mL/min >60 [facility] Work Phone: Comment on above: GFR Calc Estimated GFR (MDRD) Non-Af Amer 106 mL/min >60 [facility] Work Phone: Comment on above: Non- GFR Calc Thyroid Stimulating Hormone (TSH) 1.69 uIU/mL 0.358-3.74 [facility] Work Phone: Vitamin D 25-Hydroxy 37.6 ng/mL [facility] Work Phone: Comment on above: Vitamin D 25(OH) Sta tus Range Deficiency <20 ng/mL (50nmol/L) Insufficiency 20 - 30 ng/mL (50 - 75 nmol/L) Sufficiency 30 - 100 ng/mL (75 - 250 nmol/L) Toxicity >100 ng/mL (>250 nmol/L) Platelets bldon 02-02-2022 Platelets (Bld) [#/Vol] 255 10*3/uL 150-450 [facility] Work Phone: Serum or plasma albumin ashley urement (mass/volume)on 02-02-2022 Albumin [Mass/Vol] 3.3 g/dL 3.2-5.[address] [facility] Work Phone: Serum or plasma albumin/glob ulin mass ratioon 02-02-2022 Albumin/Globulin [Mass ratio] 1.0 {ratio} 0.9-2.4 [facility] Work Phone: Serum or plasma calcium ashley urement (mass/volume)on 02-02-2022 Calcium [Mass/Vol] 8.7 mg/dL 8.5-10.[address] [facility] Work Phone: Serum or plasma creatinine m easurement (mass/volume)on 02-02-2022 Creatinine [Mass/Vol] 0.58 mg/dL 0.55-1.02 [facility] Work Phone: Comment on above: The validity of the calculated GFR & GFRAA in patients over 70 years has not been determined. Clinical correlation is essential. Serum or plasma urea nitroge n measurement (mass/volume)on 02-02-2022 Urea nitrogen [Mass/Vol] 17 mg/dL 7-18 [facility] Work Phone: Thin prep Papanicolaou smear with manual screeningon 02-02-2022 Thin prep Papanicolaou smear with manual screening 23 U/L 15-37 [facility] Work Phone: Thin prep Papanicolaou smear with manual screening 9 5-15 [facility] Work Phone: Absolute lymphocyte counton 11-05-2021 Lymphocytes Auto (Unsp spec) [#/Vol] 1.08 10*3/uL 0.83-4.51 [facility] Work Phone: Basophil percentageon 2021 Basophils/100 WBC (Bld) 0.5 % 0-1 [facility] Work Phone: [phone] Bilirubin [Mass/Vol] 0.60 mg/dL 0.20-1.00 [facility] Work Phone: Comment on above: For patients on eltr ombopag therapy, use of Dimension [place] TBIL is not recommended. Chloride [Moles/Vol] 102 mmol/L 98-107 [facility] Work Phone: Eosinophils/100 WBC (Bld) 1.6 % 0-5 [facility] Work Phone: Glucose [Mass/Vol] 83 mg/dL 74-[address] [facility] Work Phone: Neutrophils (Bld) [#/Vol] 5.4 10*3/uL 2.0-7.7 [facility] Work Phone: Neutrophils/100 WBC (Bld) 73.2 % 47-70 [facility] Work Phone: Potassium [Moles/Vol] 4.0 mmol/L 3.5-5.1 [facility] Work Phone: Protein [Mass/Vol] 7.0 g/dL 6.4-8.[address] [facility] Work Phone: Sodium [Moles/Vol] 137 mmol/L 136-[address] [facility] Work Phone: WBC (Bld) [#/Vol] 7.3 10*3/uL 4.4-11.[address] [facility] Work Phone: Blood erythrocytes count (nu mber/volume)on 11-05-2021 RBC (Bld) [#/Vol] 4.15 10*6/uL 4.2-5.4 [facility] Work Phone: Blood hemoglobin measurement (mass/volume)on 11-05-2021 Hemoglobin (Bld) [Mass/Vol] 13.2 g/dL 12.0-15.0 [facility] Work Phone: Blood lymphocytes/100 leukoc yteson 11-05-2021 Lymphocytes/100 WBC (Bld) 14.8 % 19-41 [facility] Work Phone: Blood monocytes/100 leukocyt eson 11-05-2021 Monocytes/100 WBC (Bld) 9.4 % 0-10 [facility] Work Phone: Blood platelet mean volumeon 11-05-2021 Platelet mean volume (Bld) [Entitic vol] 10.7 fL 6.2-12.0 [facility] Work Phone: Determination of erythrocyte mean corpuscular volume (MCV)on 11-05-2021 MCV (RBC) [Entitic vol] 94.9 fL 81-99 [facility] Work Phone: Hematocrit Auto (Bld) [Volum e fraction]on 11-05-2021 Hematocrit (Bld) [Volume fraction] 39.4 % 37-47 [facility] Work Phone: Laboratory - Chemistry and C hemistry - challengeon 11-05-2021 ALP [Catalytic activity/Vol] 75 U/L 45-117 [facility] Work Phone: ALT [Catalytic activity/Vol] 36 U/L 13-56 [facility] Work Phone: CO2 [Moles/Vol] 32.0 mmol/L 21.0-32.0 [facility] Work Phone: Globulin (S) [Mass/Vol] 3.5 g/dL 2.2-4.2 [facility] Work Phone: Urea nitrogen/Creatinine [Mass ratio] 33.5 mg/mg 10-20 [facility] Work Phone: Laboratory - Hematology and Cell countson 03-23-2022 Erythrocyte distribution width (RBC) [Entitic vol] 49.0 fL 35.1-43.9 [facility] Work Phone: Erythrocyte distribution width (RBC) [Ratio] 14.0 % 11.6-14.6 [facility] Work Phone: Immature granulocytes/100 WBC (Bld) 0.500 % 0.0-0.9 [facility] Work Phone: Comment on above: IG% - Immature Granu locytes (promyelocytes, myelocytes and metamyelocytes) > 1% indicates that a LEFT SHIFT is Present. MCH (RBC) [Entitic mass] 31.8 pg 27.0-32.0 [facility] Work Phone: Nucleated RBC/100 WBC (Bld) [Ratio] 0 % 0-5 [facility] Work Phone: MCHC Auto (RBC) [Mass/Vol]on 11-05-2021 MCHC (RBC) [Mass/Vol] 33.5 g/dL 32-36 [facility] Work Phone: No Panel Informationon 11-05 Estimated GFR (MDRD) Amer 124 mL/min >60 [facility] Work Phone: Comment on above: GFR Calc Estimated GFR (MDRD) Non-Af Amer 102 mL/min >60 [facility] Work Phone: Comment on above: Non- GFR Calc Thyroid Stimulating Hormone (TSH) 1.92 uIU/mL 0.358-3.74 [facility] Work Phone: Vitamin D 25-Hydroxy 27.1 ng/mL [facility] Work Phone: Comment on above: Vitamin D 25(OH) Sta tus Range Deficiency <20 ng/mL (50nmol/L) Insufficiency 20 - 30 ng/mL (50 - 75 nmol/L) Sufficiency 30 - 100 ng/mL (75 - 250 nmol/L) Toxicity >100 ng/mL (>250 nmol/L) Platelets bldon 11-05-2021 Platelets (Bld) [#/Vol] 287 10*3/uL 150-450 [facility] Work Phone: Serum or plasma albumin ashley urement (mass/volume)on 11-05-2021 Albumin [Mass/Vol] 3.5 g/dL 3.2-5.[address] [facility] Work Phone: Serum or plasma albumin/glob ulin mass ratioon 11-05-2021 Albumin/Globulin [Mass ratio] 1.0 {ratio} 0.9-2.4 [facility] Work Phone: Serum or plasma calcium ashley urement (mass/volume)on 11-05-2021 Calcium [Mass/Vol] 8.8 mg/dL 8.5-10.[address] [facility] Work Phone: Serum or plasma creatinine m easurement (mass/volume)on 11-05-2021 Creatinine [Mass/Vol] 0.60 mg/dL 0.55-1.02 [facility] Work Phone: Comment on above: The validity of the calculated GFR & GFRAA in patients over 70 years has not been determined. Clinical correlation is essential. Serum or plasma urea nitroge n measurement (mass/volume)on 11-05-2021 Urea nitrogen [Mass/Vol] 20 mg/dL 7-18 [facility] Work Phone: Thin prep Papanicolaou smear with manual screeningon 11-05-2021 Thin prep Papanicolaou smear with manual screening 28 U/L 15-37 [facility] Work Phone: Thin prep Papanicolaou smear with manual screening 3 5-15 [facility] Work Phone: Laboratory - Microbiology an d Antimicrobial susceptibilityon 10-06-2021 SARS-CoV-2 (COVID-19) RNA MATEO+probe Ql (Unsp spec) Not detected Not Detect [facility] Work Phone: Comment on above: Normal Reference Ran ge: Not DetectedMethod:(RT-PCR) real-time reverse transcriptase PCRLuminex CELINA Instrument*The Food and Drug Administration (FDA) has issued an Emergency Use Authorization (EAU) for the CELINA SARS-CoV-2 Assay for the rapid detection of the virus that causes COVID-19. This test has been validated, but the FDAs independent review of this validation is pending.*Negative results do not preclude infection and should not be used as the sole basis for treatment or patient management. Optimum specimen types and timing for peak viral levels during infections caused by SARS-CoV-2 have not been determined. Collection of multiple specimens from the same patient may be necessary to detect the virus. The possibility of a false negative result should be considered if the patient has clinical presentation or has had recent exposure. No Panel Informationon 10-06 Influenza Types A,B Direct FA (MAXI) [facility] Work Phone: No Panel Informationon 10-01 Enteric Bacteriology [facility] Work Phone: Culture, urineon 09-16-2021 Bacteria identified Cx Nom (U) Escherichia coli [facility] Work Phone: CBC AND DIFFERENTIALon 03-18 % AUTOMATED IMMATURE GRAN 0.9 % Normal 0.0 - 0.9 [facility] Comment on above: Result Comment: Perc ent differential counts (%) should be interpreted in the context of the absolute cell counts (cells/L). Performed By: #### C BCDF ####[id number] [place] [address] % NEUTROPHIL 72.7 % Normal 40.0 - 80.0 [facility] Comment on above: Performed By: #### C BCDF ####[id number] [place] [address] Basophils/100 WBC Auto (Bld) 0.4 % Normal 0.0 - 2.0 [facility] Comment on above: Performed By: #### C BCDF ####[id number] [place] [address] Basophils/100 WBC Auto (Bld) 0.02 x10E9/L Normal 0.00 - 0.10 [facility] Comment on above: Performed By: #### C BCDF ####[id number] [place] [address] Eosinophils 0.18 10*3/uL Normal 0.00 - 0.40 [facility] Comment on above: Performed By: #### C BCDF ####[facility] [place] [address] Eosinophils/100 leukocytes 3.2 % Normal 0.0 - 6.0 [facility] Comment on above: Performed By: #### C BCDF ####[facility] [place] [address] Erythrocyte distribution width Auto Ratio (RBC) 14.6 % High 11.5 - 14.5 [facility] Comment on above: Performed By: #### C BCDF ####[facility] [place] [address] Erythrocytes (RBC) 3.87 x10E12/L Low 4.00 - 5.20 [facility] Comment on above: Performed By: #### C BCDF ####[facility] [place] [address] Hematocrit (HCT) 35.8 % Low 36.0 - 46.0 [facility] Comment on above: Performed By: #### C BCDF ####[facility] [place] [address] Hemoglobin mass conc (Bld) 11.3 g/dL Low 12.0 - 16.0 [facility] Comment on above: Performed By: #### C BCDF ####[facility] [place] [address] Lymphocytes 0.78 10*3/uL Low 0.80 - 3.00 [facility] Comment on above: Performed By: #### C BCDF ####[facility] [place] [address] Lymphocytes/100 leukocytes 13.9 % Normal 13.0 - 44.0 [facility] Comment on above: Performed By: #### C BCDF ####[facility] [place] [address] MCHC mass conc (RBC) 31.6 g/dL Low 32.0 - 36.0 [facility] Comment on above: Performed By: #### C BCDF ####[facility] [place] [address] MCV 93 fL Normal 80 - 100 [facility] Comment on above: Performed By: #### C BCDF ####[facility] [place] [address] Monocytes 0.50 10*3/uL Normal 0.05 - 0.80 [facility] Comment on above: Performed By: #### C BCDF ####[facility] [place] [address] Monocytes/100 leukocytes 8.9 % Normal 2.0 - 10.0 [facility] Comment on above: Performed By: #### C BCDF ####[facility] [place] [address] Neutrophils 4.08 10*3/uL Normal 1.60 - 5.50 [facility] Comment on above: Performed By: #### C BCDF ####[facility] [place] [address] Nucleated erythrocytes 0.0 /100 WBC Normal 0.0-0.0 [facility] Comment on above: Performed By: #### C BCDF ####[facility] [place] [address] Platelets 214 10*3/uL Normal 150 - 450 [facility] Comment on above: Performed By: #### C BCDF ####[facility] [place] [address] WBC (Leukocytes) 5.6 10*3/uL Normal 4.4 - 11.3 [facility] Comment on above: Performed By: #### C BCDF ####[facility] [place] [address] Discharge Summaryon 03-18-20 17 Discharge Summary Send Summary:Dischar ge Summary Providers:Provider Role Provider Name? Referring Abelino Capellan? Primary Unknown, Pcp? Attending Richy Poon Recipients: Cheryl Poon, MDDischarge:Summary:Admi ssion Date: .13-Mar-2017 12:00:00Discharge Date: [id number] Physician at Discharge: Cheryl PoonAdmission Reason: fallFinal Discharge Diagnoses: BPPVProcedures: n/aCondition at Discharge: FairDisposition at Discharge: Longterm FacilityHospital Course:Patient presented to the emergency department after a mechanical [facility] The mechanism of her fall was that shetripped and fell forward onto the stairs. She is unsure about any LOC. She hither face and body on the stairs going up them.She complains of some pain to the midface on the left as well as to the nose.She says she did have some pain periumbilically going towards the left hipwhile at the [place]. However she was given some Dilaudid and the pain seemed tosubside. She was backboarded as well as in a c-collar. She denies any pain tothe neck at rest. She does have some lower back aching.Patient underwent extensive workup for potential spinal injuries. Neurosurgeryreviewed MRI and cleared her c-spine and back injuries, said she could wearback brace and c-collar for comfort if wanted. While in the hospital thepatient suffered bouts of vertigo diagnosed as BPPV. ENT consulted andperformed eppley maneuver to some relief of symptoms. Patient was advanced toregular diet and tolerated it well. Bowel regimen was implemented to aid inbowel movement. She will be discharged to SNF for rehab due to difficultygetting out of bed and activities of daily living.Discharge Information:and Continuing Care:Discharge Instructions:Activity: activity with assistance. May shower.. Weight-bearing Instructions: weight-bearing as tolerated.Nutrition/Diet : regularRehab Services: Occupational Therapy Orders: [facility] ([facility]) 3-5 times/week Physical Therapy Orders: 3-5 times/weekCare Recommendation: I recommend that INPATIENT care is required at:: Skilled Estimated Stay: Convalescent stay < 30 daysFollow Up Appointments:Follow-Up Appointment 01: Physician/Dept/Service: Dr. Garcia or Dr. Solo - ENT Call to Schedule in: Office requests to call you directly to scheduleappointment Location: [address] [place] [address] [employer] Appointment 02: Physician/Dept/Service: Dr. Stanley West - Neurosurgery Scheduled Date/Time: 01-Apr-2017 13:30 Location: [address], [place], [id number] [place] Medications: Home Medication metoprolol succinate 25 mg oral tablet, extended release - 1 tab(s) orallyonce a day hydroCHLOROthiazide 12.5 mg oral tablet - 1 tab(s) orally once a day meclizine 12.5 mg oral tablet - 30 tab(s) orally 3 times a day lactulose 10 g/15 mL oral syrup - 30 milliliter(s) orally 4 times a day PRN MedicationtraMADol 50 mg oral tablet - 1 tab(s) orally every 6 hours, As needed, Pain -Mod (4-6)Issues to Discuss at Follow-up / Goals for Continuing Care:SNF for rehabLab Results - Pending: NoneRadiology Results - Pending: NoneAttestation:Cosign/A ttestation:.: Attestation: I saw and evaluated the patient. I personally obtained the keyand critical portions of the history and physical exam or was physicallypresent for john and critical portions performed by the resident/fellow. Ireviewed the resident/fellow?s documentation and discussed the patient with theresident/fellow. I agree with the resident/fellow?s medical decision making asdocumented in the resident?s noteI personally evaluated the patient (as noted in the above attestation) on:[id number]/ Additional Findings:I saw and evaluated the patient. I agree with the findings and the plan of careas documented in the resident?s note..: Elec tronic Signatures:Lena Sweeney (Resident)) (Signed 18-Mar-2017 12:31) Authored: Send Summary, Summary Content, Ongoing Care, AttestationViCheryl moreno) (Signed 28-Apr-2017 16:54) Authored: Ongoing Care, Attestation Co-Signer: Send Summary, Summary Content, Ongoing Care, AttestationLast Updated: 28-Apr-2017 16:54 by Cheryl Poon) Normal [facility] MAGNESIUMon 03-18-2017 Magnesium 1.67 mg/dL Normal 1.60 - 2.40 [facility] Comment on above: Performed By: #### M G ####[facility] [place] [address] RENAL FUNCTION PANELon 03-18 Albumin 3.1 g/dL Low 3.4 - 5.0 [facility] Comment on above: Performed By: #### R ENAL ####[facility] [place] [address] Anion gap 14 mmol/L Normal 10 - 20 [facility] Comment on above: Performed By: #### R ENAL ####[facility] [place] [address] Bicarbonate (HCO3) 28 mmol/L Normal 21 - 32 [facility] Comment on above: Performed By: #### R ENAL ####[facility] [place] [address] Calcium 8.6 mg/dL Normal 8.6 - 10.6 [facility] Comment on above: Performed By: #### R ENAL ####[facility] [place] [address] Chloride 101 mmol/L Normal 98 - 107 [facility] Comment on above: Performed By: #### R ENAL ####[facility] [place] [address] Creatinine 0.45 mg/dL Low 0.50 - 1.05 [facility] Comment on above: Performed By: #### R ENAL ####[facility] [place] [address] eGFR (non-black) mL/min/{1.73_m2} Normal >60 [facility] Comment on above: Result Comment: CALC ULATIONS OF ESTIMATED GFR ARE PERFORMED USING THE MDRD STUDY EQUATION FOR THE IDMS-TRACEABLE CREATININE METHODS. CLIN CHEM 2007;53:766-72 Performed By: #### R ENAL ####[facility] [place] [address] Glucose mass conc 101 mg/dL High 74 - 99 [facility] Comment on above: Performed By: #### R ENAL ####[facility] [place] [address] Phosphate 3.5 mg/dL Normal 2.5 - 4.9 [facility] Comment on above: Result Comment: The performance characteristics of phosphorus testing in heparinized plasma have been validated by the individual laboratory site where testing is performed. Testing on heparinized plasma is not approved by the FDA; however, such approval is not necessary. Performed By: #### R ENAL ####[facility] [place] [address] Potassium molar conc 3.4 mmol/L Low 3.5 - 5.3 [facility] Comment on above: Performed By: #### R ENAL ####[facility] [place] [address] Sodium 140 mmol/L Normal 136 - 145 [facility] Comment on above: Performed By: #### R ENAL ####[facility] [place] [address] Urea nitrogen 13 mg/dL Normal 6 - 23 [facility] Comment on above: Performed By: #### R ENAL ####[facility] [place] [address] BN SPINE, LUMBOSACRAL; 2 OR 3 VIEWSon 03-17-2017 BN SPINE, LUMBOSACRAL; 2 OR 3 VIEWS Name: TORSTEN COLINDRES STUDY:LUMBOSACRAL SPINE, 2 OR 3 VIEWS; 03/17/2017 2:35 pm INDICATION:Signs/Symptom s: evaluate dynamic height loss. COMPARISON:03/13/2017 ORDERING CLINICIAN:LENA SWEENEY FINDINGS:Three views of the lumbosacral spine demonstrates anterolisthesis ofL4 on L5 measuring at approximately 12 mm. Anterior wedge compressionfracture of the L1 vertebral body is slightly more pronounced, withapproximately 40% loss of anterior vertebral body height. Multilevellumbar spine discogenic degenerative changes are most pronounced atL5-S1 where there is endplate sclerosis and significant loss ofvertebral body height. Productive endplate changes also noted,especially anteriorly throughout the lumbar spine. Scatteredabdominal surgical material re-demonstrated. IMPRESSION:1. Slightly worsened L1 vertebral body compression deformity withapproximately 40% loss of height anteriorly.2. Anterolisthesis of L4 over L5 is likely not significantly changedfrom prior accounting for differences in technique.3. Givf-th-ceuislgi multilevel discogenic degenerative changes aremost pronounced at L5-S1. I personally reviewed the images/study and I agree with the findingsas stated. This study was interpreted at [facility], [place], [place].Electronically signed by: MANJU GARCES, DO Normal [facility] NR MRI CERVICAL WOon 017 NR MRI CERVICAL WO Name: TORSTEN COLINDRES STUDY:NR MRI CERVICAL WO; 03/14/2017 1:38 pm INDICATION:Signs/Symptom s: Midline Cspine Tenderness, Lie Flat: Yes, Pre Med: No. COMPARISON:03/13/[address] ORDERING CLINICIAN:KELLY ZACARIAS TECHNIQUE:Sagittal STIR and sagittal T1, T2, axial T1 and axial T2 weightedimages were acquired through the cervical spine. FINDINGS:Alignment: C4 has 2 mm anterolisthesis relative to C5 similar to theprior CT. Vertebrae/Intervertebral Discs: The vertebral bodies demonstrateexpected height.There is a small focus of marrow edema along theanterior inferior C5 vertebral body adjacent to endplate spurs and afocus of STIR hyperintensity anterior to the body in the region theanterior longitudinal ligament. The discs have loss of height fromC3-4 through C6-7. Cord: No intrinsic abnormalities of the spinal cord are noted. C1-C2: The cervicomedullary junction appears unremarkable. There isno central canal stenosis. C2-C3: There is no posterior disc contour abnormality. There is nosignificant central canal or neural foraminal stenosis. C3-C4: Disc bulge and uncovertebral spurring stenose the left neuralforamen. C4-C5: Disc bulge abuts the ventral cord in part due to theanterolisthesis of C4. C5-C6: Disc bulge and uncovertebral spurring more focally centrallyindent the ventral aspect of the cord. C6-C7: Disc bulge and uncovertebral spurring nearly reach the ventralaspect of the cord. There is no significant central canal or neuralforaminal stenosis. C7-T1: There is no posterior disc contour abnormality. There is nosignificant central canal or neural foraminal stenosis. The upper thoracic vertebrae and spinal canal are unremarkable. IMPRESSION:1. Small focus of edema is noted in the region the anteriorlongitudinal ligament at C5. There is a small amount of edema in theinferior anterior corner of the vertebral body itself adjacent to aprominent anterior spur. No fracture line is noted in this region onthe CT. Focal ligamentous injury in this area is not excluded.2. Degenerative disc changes are present as noted.Electronically signed by: RICHARD RIVAS, PHYSICIAN Normal [facility] ALCOHOLon 03-13-2017 Ethanol mg/dL Normal [facility] Comment on above: Result Comment: FOR MEDICAL USE ONLY..REF VALUES <10 Performed By: #### A LC ####[facility], [place] [phone] BASIC METABOLIC PANELon - Anion gap 14 mmol/L Normal 10 - 20 [facility] Comment on above: Performed By: #### B MP ####[facility], [place] [phone] Bicarbonate (HCO3) 26 mmol/L Normal 21 - 32 [facility] Comment on above: Performed By: #### B MP ####[facility], [place] [phone] Calcium 9.0 mg/dL Normal 8.6 - 10.6 [facility] Comment on above: Performed By: #### B MP ####[facility], [place] [phone] Chloride 104 mmol/L Normal 98 - 107 [facility] Comment on above: Performed By: #### B MP ####[facility], [place] [phone] Creatinine 0.46 mg/dL Low 0.50 - 1.05 [facility] Comment on above: Performed By: #### B MP ####[facility], [place] [phone] eGFR (non-black) mL/min/{1.73_m2} Normal >60 [facility] Comment on above: Performed By: #### B MP ####[facility], [place] [phone] Result Comment: CALC ULATIONS OF ESTIMATED GFR ARE PERFORMED USING THE MDRD STUDY EQUATION FOR THE IDMS-TRACEABLE CREATININE METHODS. CLIN CHEM 2007;53:766-72 Glucose mass conc 123 mg/dL High 74 - 99 [facility] Comment on above: Performed By: #### B MP ####[facility], [place] [phone] Potassium molar conc 3.3 mmol/L Low 3.5 - 5.3 [facility] Comment on above: Performed By: #### B MP ####[facility], [place] [phone] Sodium 141 mmol/L Normal 136 - 145 [facility] Comment on above: Performed By: #### B MP ####[facility], [place] [phone] Urea nitrogen 17 mg/dL Normal 6 - 23 [facility] Comment on above: Performed By: #### B MP ####[facility], [place] [phone] BN RIBS, BILATERAL; W CXR FL N 4 VIEWSon 03-13-2017 BN RIBS, BILATERAL; W CXR MIN 4 VIEWS Name: TORSTEN COLINDRES STUDY:RIBS, BILATERAL; W CXR MIN 4 VIEWS; 03/13/2017 5:15 pm INDICATION:Rib pain after fall. COMPARISON:Chest x-ray 03/13/2017 2:25 p.m. ORDERING CLINICIAN:KARLA DAY FINDINGS:The cardiomediastinal silhouette measures at the upper limits normalin size. There are calcifications of the aortic arch. There is no focal airspace consolidation, sizeable pleural effusion,or pneumothorax. There is no evidence displaced fracture. The patient is status postright reverse total shoulder arthroplasty. There are degenerativechanges of the left shoulder with a high-riding humeral headconsistent with chronic rotator cuff tendon tearing. There isredemonstration of surgical material projecting over the abdomen.There is redemonstration of slight loss of vertebral body height ofthe L1 vertebral body as seen on prior lumbar spine x-rays. IMPRESSION:No evidence of displaced rib fracture. No pneumothorax. I personally reviewed the image(s)/study and resident interpretation.I agree with the findings as stated. Data analyzed and imagesinterpreted at [facility],[place], [place].Electronically signed by: SURI PATRICK MD Normal [facility] BN SPINE, LUMBOSACRAL; 2 OR 3 VIEWSon 03-13-2017 BN SPINE, LUMBOSACRAL; 2 OR 3 VIEWS Name: DESTINESTEBANTORSTEN STUDY:SPINE, LUMBAR ; 2 OR 3 VIEWS; 03/13/2017 2:25 pm INDICATION:Lumbar spine tenderness after mechanical fall. COMPARISON:None. ORDERING CLINICIAN:ZENON SILVERMAN FINDINGS:There is partially sacralized L5. There is a compression fracture ofthe L1 vertebral body resulting in approximately 25% loss of discspace height anteriorly. There are underlying, mild multileveldiscogenic degenerative changes of the lumbar spine with endplatesclerosis and mild disc space narrowing. There is 5 mm L4-5anterolisthesis. The posterior elements are grossly intact, althoughevaluation is limited secondary to large patient body habitus,particular on lateral view. There are degenerative changes at thepubic symphysis. There is surgical material overlying the leftabdomen. IMPRESSION:Transitional lumbosacral with sacralized L5. Compression fracture of the L1 vertebral body, of uncertain age. Multilevel discogenic degenerative changes of the lumbar spine. GradeI L4-5 anterolisthesis. I personally reviewed the image(s)/study and resident interpretation.I agree with the findings as stated. Data analyzed and imagesinterpreted at [facility],[place], [place].Electronically signed by: SURI PATRICK MD Normal [facility] CBCon 03-13-2017 Erythrocyte distribution width Auto Ratio (RBC) 14.6 % High 11.5 - 14.5 [facility] Comment on above: Performed By: #### C BC ####[facility], [place] [phone] Erythrocytes (RBC) 4.17 x10E12/L Normal 4.00 - 5.20 [facility] Comment on above: Performed By: #### C BC ####[facility], [place] [phone] Hematocrit (HCT) 35.9 % Low 36.0 - 46.0 [facility] Comment on above: Performed By: #### C BC ####[facility], [place] [phone] Hemoglobin mass conc (Bld) 12.2 g/dL Normal 12.0 - 16.0 [facility] Comment on above: Performed By: #### C BC ####[facility], [place] [phone] MCHC mass conc (RBC) 34.0 g/dL Normal 32.0 - 36.0 [facility] Comment on above: Performed By: #### C BC ####[facility], [place] [phone] MCV 86 fL Normal 80 - 100 [facility] Comment on above: Performed By: #### C BC ####[facility], [place] [phone] Nucleated erythrocytes 0.0 /100 WBC Normal 0.0-0.0 [facility] Comment on above: Performed By: #### C BC ####[facility], [place] [phone] Platelets 194 10*3/uL Normal 150 - 450 [facility] Comment on above: Performed By: #### C BC ####[facility], [place] [phone] WBC (Leukocytes) 7.9 10*3/uL Normal 4.4 - 11.3 [facility] Comment on above: Performed By: #### C BC ####[facility], [place] [phone] LACTATEon 03-13-2017 Lactate 1.4 mmol/L Normal 0.4 - 2.0 [facility] Comment on above: Result Comment: Maggi puncture immediately after or during the administration of Metamizole may lead to falsely low results. Testing should be performed immediately prior to Metamizole dosing. Performed By: #### L ACT ####[facility], [place] [phone] C-SPINE WO Con [address] C-SPINE WO C Name: TORSTEN COLINDRES STUDY:NR CT C-SPINE WO C; 03/13/2017 3:36 pm INDICATION:Signs/Symptom s: mech fall forward. COMPARISON:None. ORDERING CLINICIAN:ZENON SILVERMAN TECHNIQUE:Thin cut axial CT images through the cervical spine were obtained andreconstructed in the coronal and sagittal planes. FINDINGS:There is no acute cervical spine fracture. The sagittal reconstructed images demonstrate 2 mm of anterolisthesisof C4 on C5. There is straightening of the normal lordotic curvatureof the cervical spine which may be related to patient positioning. There is multilevel cervical spondylosis with mild posteriorosteophytic spurring noted at the C3/4 through C7/T1 levels. There ismild bony encroachment upon the right neural foramen at the C5/6 andC6/7 levels and on the left at the C3/4 level. IMPRESSION:There is no acute cervical spine fracture. There is 2 mm of anterolisthesis of C4 on C5. There is multilevelcervical spondylosis. [facility]Electronic ally signed by: MANJU GRAY MD [facility] NR CT FACIAL BONESon [address] FACIAL BONES Name: TORSTEN COLINDRES STUDY:NR CT HEAD WO CONT; NR CT FACIAL BONES; 03/13/2017 3:36 pm INDICATION:Signs/Symptom s: mech fall forward. COMPARISON:None. [id number] ORDERING CLINICIAN:ZENON SILVERMAN TECHNIQUE:Axial CT images images of the head were obtained without intravenouscontrast administration. In addition, thin cut axial CT imagesthrough the facial bones were obtained and reconstructed in thecoronal and sagittal planes. FINDINGS:The CT of the head demonstrates mild brain parenchymal volume loss. There are minimal nonspecific white matter changes within thecerebral hemispheres bilaterally which while nonspecific, given thepatient' s age, likely represent sequelae of small vessel ischemicchange. No hyperdense acute intracranial hemorrhage is noted. There is no midline shift. There is extracranial soft tissue swelling noted within the rightfrontal scalp which while nonspecific may be posttraumatic in origin. The CT of the facial bones demonstrates no acute facial bonefracture. There is intermediate attenuation infiltrating thesubcutaneous fat of the left lateral face which while nonspecific islikely posttraumatic in origin. The paranasal sinuses are clear. The middle ear cavities and mastoid air cells are clear. IMPRESSION:The CT of the head demonstrates no hyperdense acute intracranialhemorrhage or fracture. There is extracranial soft tissue swellingnoted within the right frontal scalp which while nonspecific may beposttraumatic in origin. There is mild diffuse brain parenchymal volume loss and minimalnonspecific white matter changes which while nonspecific, given thepatient's age, likely represent sequelae of small vessel ischemicchange. The CT of the facial bones demonstrates no acute facial bonefracture. There is intermediate attenuation infiltrating thesubcutaneous fat of the left lateral face which while nonspecific islikely posttraumatic in origin. [facility]Electronic ally signed by: MANJU GRAY MD [facility] NR CT HEAD WO CONTon 03-13- [address] HEAD WO CONT Name: TORSTEN COLINDRES STUDY:NR CT HEAD WO CONT; NR CT FACIAL BONES; 03/13/2017 3:36 pm INDICATION:Signs/Symptom s: mech fall forward. COMPARISON:None. [id number] ORDERING CLINICIAN:ZENON SILVERMAN TECHNIQUE:Axial CT images images of the head were obtained without intravenouscontrast administration. In addition, thin cut axial CT imagesthrough the facial bones were obtained and reconstructed in thecoronal and sagittal planes. FINDINGS:The CT of the head demonstrates mild brain parenchymal volume loss. There are minimal nonspecific white matter changes within thecerebral hemispheres bilaterally which while nonspecific, given thepatient' s age, likely represent sequelae of small vessel ischemicchange. No hyperdense acute intracranial hemorrhage is noted. There is no midline shift. There is extracranial soft tissue swelling noted within the rightfrontal scalp which while nonspecific may be posttraumatic in origin. The CT of the facial bones demonstrates no acute facial bonefracture. There is intermediate attenuation infiltrating thesubcutaneous fat of the left lateral face which while nonspecific islikely posttraumatic in origin. The paranasal sinuses are clear. The middle ear cavities and mastoid air cells are clear. IMPRESSION:The CT of the head demonstrates no hyperdense acute intracranialhemorrhage or fracture. There is extracranial soft tissue swellingnoted within the right frontal scalp which while nonspecific may beposttraumatic in origin. There is mild diffuse brain parenchymal volume loss and minimalnonspecific white matter changes which while nonspecific, given thepatient's age, likely represent sequelae of small vessel ischemicchange. The CT of the facial bones demonstrates no acute facial bonefracture. There is intermediate attenuation infiltrating thesubcutaneous fat of the left lateral face which while nonspecific islikely posttraumatic in origin. [facility]Electronic ally signed by: MANJU GRAY MD Normal [facility] PT/INRon 03-13-2017 INR Coag RelTime (PPP) 1.0 {INR} Normal 0.9 - 1.1 [facility] Comment on above: Performed By: #### P TINR ####[facility], [place] [phone] Prothrombin time (PT) Coag time (PPP) 11.4 s Normal 9.8 - 12.7 [facility] Comment on above: Result Comment: NOTE NEW REFERENCE RANGE. Performed By: #### P TINR ####[facility], [place] [phone] TH CHEST 1 VIEWon 03-13-2017 TH CHEST 1 VIEW Name: TORSTEN COLINDRES STUDY:CHEST 1 VIEW; 03/13/2017 2:25 pm INDICATION:Trauma; mechanical fall. COMPARISON:None. ORDERING CLINICIAN:ZENON SILVERMAN FINDINGS:Examination is limited secondary to patient body habitus and portabletechnique. The cardiomediastinal silhouette is within normal limits of size aresingle AP view. There are calcifications aortic arch. There is no focal airspace consolidation, scratch or grosspneumothorax. There is small left pleural effusion. There are no acute thoracic osseous abnormalities. There arepostsurgical changes from prior reverse right total shoulderarthroplasty. There are surgical clips overlying the right upperquadrant as well as surgical material overlying the left hemiabdomen. IMPRESSION:1. Limited portable examination without consolidation..I personally reviewed the image(s)/study and resident interpretation.I agree with the findings as stated. Data analyzed and imagesinterpreted at [facility],[place], [place].Electronically signed by: SURI PATRICK MD Normal [facility] UA MICROSCOPICon 03-13-2017 CA OXALATE CRYSTAL 2+ /HPF Abnormal [facility] Comment on above: Performed By: #### U AMIC ####[facility], [place] [phone] Erythrocytes (RBC) 2 /HPF Normal 0-5 [facility] Comment on above: Performed By: #### U AMIC ####[facility], [place] [phone] HYALINE CAST 2+ /LPF Abnormal [facility] Comment on above: Performed By: #### U AMIC ####[facility], [place] [phone] RENAL EPITH. CELLS <1 Normal [facility] Comment on above: Performed By: #### U AMIC ####[facility], [place] [phone] SQUAMOUS EPITH. CELLS 23 /HPF Normal [facility] Comment on above: Performed By: #### U AMIC ####[facility], [place] [phone] TRANSITIONAL EPITH.CELLS 1 /HPF Normal [facility] Comment on above: Performed By: #### U AMIC ####[facility], [place] [phone] Urine, mucus presence in sediment 1+ /LPF Normal [facility] Comment on above: Performed By: #### U AMIC ####[facility], [place] [phone] WBC (Leukocytes) 4 /HPF Normal 0-5 [facility] Comment on above: Performed By: #### U AMIC ####[facility], [place] [phone] URINALYSISon 03-13-2017 Bilirubin (total) Negative Normal NEGATIVE [facility] Comment on above: Performed By: #### U A ####[facility], [place] [phone] BLOOD Negative Normal NEGATIVE [facility] Comment on above: Performed By: #### U A ####[facility], [place] [phone] Glucose mass conc Negative Normal NEGATIVE [facility] Comment on above: Performed By: #### U A ####[facility], [place] [phone] pH of blood 5.0 [pH] Normal 5.0 - 8.0 [facility] Comment on above: Performed By: #### U A ####[facility], [place] [phone] Protein Negative Normal NEGATIVE [facility] Comment on above: Performed By: #### U A ####[facility], [place] [phone] Urine, appearance HAZY Normal CLEAR [facility] Comment on above: Performed By: #### U A ####[facility], [place] [phone] Urine, color YELLOW Normal STRAW,YELLO W [facility] Comment on above: Performed By: #### U A ####[facility], [place] [phone] Urine, ketones presence 20 (1+) Abnormal NEGATIVE U [facility] Comment on above: Performed By: #### U A ####[facility], [place] [phone] Urine, leukocyte esterase presence SMALL (1+) Abnormal NEGATIVE [facility] Comment on above: Performed By: #### U A ####[facility], [place] [phone] Urine, nitrite presence Negative Normal NEGATIVE U [facility] Comment on above: Performed By: #### U A ####[facility], [place] [phone] Urine, specific gravity 1.030 Normal 1.00 5 - 1.035 [facility] Comment on above: Performed By: #### U A ####[facility], [place] [phone] Urine, urobilinogen <2.0 Normal 0.0 - 1.9 [facility] Comment on above: Performed By: #### U A ####[facility], [place] [phone] No Panel Information Influenza Types A,B Direct FA ([facility]) [facility] Work Phone: Vital Signs Date Time Vital Sign Value Performing Clinician Cassandra friend 12-07-2024 14:03-0400 Heart rate 78 /min Dr. Leandro Lua MD Work Phone: [facility] 12-07-2024 14:00-0400 Body temperature 98.5 [degF] Dr. Leandro Lua MD Work Phone: [facility] 12-07-2024 14:00-0400 Diastolic blood pressure 55 mm[Hg] Dr. Leandro Lua MD Work Phone: [facility] 12-07-2024 14:00-0400 Respiratory rate 18 /min Dr. Leandro Lua MD Work Phone: [facility] 12-07-2024 14:00-0400 SaO2% (BldA) [Mass fraction] 94 % Dr. Leandro Lua MD Work Phone: [facility] 12-07-2024 14:00-0400 Systolic blood pressure 136 mm[Hg] Dr. Leandro Lua MD Work Phone: 7(288)[phone] [place] [address] 12-06-2024 17:34-0400 Body height 165.[address] Leandro Lua MD Work Phone: 2(215)678-025792 [place] [address] 12-06-2024 17:34-0400 Body mass index (BMI) [Ratio] 34.7 kg/m2 Dr. Leandro Lua MD Work Phone: 1(004)531-623592 [place] [address] 12-06-2024 17:34-0400 Body weight 94.[address] Leandro Lua MD Work Phone: 2(004)496-427492 [place] [address] 11-25-2024 12:08-0400 Body temperature 98 [degF] Dr. Leandro Lua MD Work Phone: 0(576)907-320592 [place] [address] 11-25-2024 12:08-0400 Diastolic blood pressure 64 mm[Hg] Dr. Leandro Lua MD Work Phone: 1(061)170-998692 [place] [address] 11-25-2024 12:08-0400 Heart rate 74 /min Dr. Leandro Lua MD Work Phone: 1(601)749-884792 [place] [address] 11-25-2024 12:08-0400 Respiratory rate 14 /min Dr. Leandro Lua MD Work Phone: 9(414)995-711092 [place] [address] 11-25-2024 12:08-0400 SaO2% (BldA) [Mass fraction] 92 % Dr. Leandro Lua MD Work Phone: 4(973)387-548392 [place] [address] 11-25-2024 12:08-0400 Systolic blood pressure 110 mm[Hg] Dr. Leandro Lua MD Work Phone: 7(351)043-967692 [place] [address] 11-25-2024 11:30-0400 Body mass index (BMI) [Ratio] 36.1 kg/m2 Dr. Leandro Lua MD Work Phone: 3(478)201-202792 [place] [address] 11-25-2024 11:30-0400 Body weight 98.[address] Leandro Lua MD Work Phone: 4(028)416-465492 [place] [address] 11-25-2024 09:27-0400 Body height 165.[address] Leandro Lua MD Work Phone: [facility] 10-08-2023 14:12-0500 Body height 165.[address] Leandro Lua Work Phone: [facility] 10-08-2023 14:12-0500 Body mass index (BMI) [Ratio] 37.4 kg/m2 Dr. Leandro Lua Work Phone: [facility] 10-08-2023 14:12-0500 Body temperature 97.7 [degF] Dr. Leandro Lua Work Phone: [facility] 10-08-2023 14:12-0500 Body weight 102.[address] Leandro Lua Work Phone: [facility] 10-08-2023 14:12-0500 Heart rate 86 /min Dr. Leandro Lua Work Phone: [facility] 10-08-2023 14:12-0500 Respiratory rate 16 /min Dr. Leandro Lua Work Phone: [facility] 10-08-2023 14:12-0500 SaO2% (BldA) [Mass fraction] 97 % Dr. Leandro Lua Work Phone: [facility] 04-24-2022 12:47-0400 Body height 163.[address] Leandro Lua Work Phone: [facility] Work Phone: 04-24-2022 12:47-0400 Body mass index (BMI) [Ratio] 41.2 kg/m2 Dr. Leandro Lua Work Phone: [facility] Work Phone: 04-24-2022 12:47-0400 Body temperature 98 [degF] Dr. Leandro Lua Work Phone: [facility] Work Phone: 04-24-2022 12:47-0400 Body weight 110.[address] Leandro Lua Work Phone: [facility] Work Phone: 04-24-2022 12:47-0400 Diastolic blood pressure 92 mm[Hg] Dr. Leandro Lua Work Phone: [facility] Work Phone: 04-24-2022 12:47-0400 Heart rate 102 /min Dr. Leandro Lua Work Phone: [facility] Work Phone: 04-24-2022 12:47-0400 Respiratory rate 16 /min Dr. Leandro Lua Work Phone: [facility] Work Phone: 04-24-2022 12:47-0400 SaO2% (BldA) [Mass fraction] 95 % Dr. Leandro Lua Work Phone: [facility] Work Phone: 04-24-2022 12:47-0400 Systolic blood pressure 158 mm[Hg] Dr. Leandro Lua Work Phone: [facility] Work Phone: Encounters Encounter Date Encounter Type Care Provider Facility Start: 01-10-2025 End: 01-10-2025 ambulatory Leandro Lua Facility:[facility] Start: 12-28-2024 End: 12-28-[address] Leandro Lua MD Work Phone: [facility] Work Phone: Start: 12-28-2024 End: 12-28-[address] Leandro Lua MD -Laboratory Specimen Work Phone: Start: 12-28-2024 End: 12-28-2024 ambulatory Leandro Lua Facility:[facility] Start: 12-20-2024 End: 12-20-[address] Leandro Lua MD Work Phone: [facility] Work Phone: Start: 12-20-2024 End: 12-20-[address] Leandro Lua MD -Laboratory Work Phone: Start: 12-20-2024 End: 12-20-2024 ambulatory Leandro Lua Facility:[facility] Start: 12-13-2024 End: 12-13-[address] Leandro Lua MD Work Phone: [facility] Work Phone: Start: 12-13-2024 End: 12-13-[address] Leandro Lua MD -Radiology, [facility] Work Phone: Start: 12-13-2024 End: 12-13-2024 ambulatory Leandro Lua Facility:[facility] Start: 12-07-2024 Non-patient / Non-visit Dr. Tonya Cortez [facility] Work Phone: Start: 12-06-2024 Non-patient / Non-visit Dr. Tonya Cortez [facility] Work Phone: Start: 12-05-2024 Non-patient / Non-visit Dr. Tonya Cortez [facility] Work Phone: Start: 12-04-2024 Non-patient / Non-visit Dr. Tonya Cortez [facility] Work Phone: Start: 12-03-2024 Non-patient / Non-visit Dr. Thao Davis MD -[facility] Work Phone: Start: 12-02-2024 ambulatory Tonya Cortez [facility] Start: 12-02-2024 End: 12-07-2024 Evaluation and management of inpatient Dr. Tonya Cortez DO [facility] 3 Work Phone: Start: 12-02-2024 Non-patient / Non-visit Dr. Thao Davis MD -[facility] Work Phone: Start: 12-01-2024 Non-patient / Non-visit Dr. Thao Davis MD -[facility] Work Phone: Start: 11-30-2024 Non-patient / Non-visit Dr. Thao Davis MD [facility] Work Phone: Start: 11-29-2024 End: 11-29-2024 [facility] Start: 11-29-2024 End: 11-29-2024 Non-patient / Non-visit Dr. Manju Martinez MD -[facility] Work Phone: Start: 11-29-2024 Non-patient / Non-visit Dr. Thao Davis MD -[facility] Work Phone: Start: 11-28-2024 Non-patient / Non-visit Dr. Thao Davis MD -[facility] Work Phone: Start: 11-27-2024 ambulatory Tonya Cortez Facility:[facility] Start: 11-27-2024 Non-patient / Non-visit Dr. Thao Davis MD -[facility] Work Phone: Start: 11-26-2024 Non-patient / Non-visit Dr. Tonya Cortez [facility] Work Phone: Start: 11-25-2024 Non-patient / Non-visit Dr. Tonya Cortez DO [facility] Work Phone: Start: 11-25-2024 ambulatory Tonya Cortez Facility:[facility] Start: 11-25-2024 Evaluation and management of inpatient Dr. Tonya Cortez DO [facility] 3 Work Phone: Start: 11-25-[address] Leandro Lua MD Work Phone: [facility] Work Phone: Start: 11-21-2024 End: 11-21-[address] Leandro Lua MD Work Phone: [facility] Work Phone: Start: 11-21-2024 End: 11-21-[address] Leandro Lua MD -Laboratory Work Phone: Start: 11-21-2024 End: 11-21-2024 ambulatory [facility] Facility:[facility] Start: 10-17-2024 End: 10-17-[address] Leandro Lua MD Work Phone: [facility] Work Phone: Start: 10-17-2024 End: 10-17-[address] Leandro Lua MD -Laboratory, Phy Office 3rd Flr Start: 10-17-2024 End: 10-17-2024 ambulatory [facility] Facility:[facility] Start: 06-28-2024 End: 06-28-2024 ambulatory [facility] Facility:[facility] Start: 05-22-2024 End: 05-22-2024 ambulatory [facility] Facility:[facility] Start: 11-16-2023 End: 11-16-[address] Leandro Lua Work Phone: [facility] Work Phone: Start: 11-16-2023 End: 11-16-[address] Leandro Lua Work Phone: [facility]-Laboratory, Phy Office 3rd Flr Start: 10-08-2023 End: 10-08-[address] Leandro Lua Work Phone: [facility] Work Phone: Start: 08-05-2023 End: 08-05-2023 ambulatory [facility] Work Phone: Start: 08-05-2023 End: 08-05-2023 Patient encounter procedure [facility]-Pulmonary Services/Neurology Work Phone: Start: 05-18-2023 End: 05-18-2023 Patient encounter procedure [facility]-Laboratory, Phy Office 3rd Flr Start: 08-25-2022 End: 08-25-2022 ambulatory [facility] Work Phone: Start: 08-25-2022 End: 08-25-2022 [facility] Start: 08-13-2022 End: 08-13-2022 [facility] Start: 05-11-2022 End: 05-11-[address] Leandro Lua Work Phone: [facility] Work Phone: Start: 05-11-2022 End: 05-11-[address] [facility] Start: 04-24-2022 End: 04-24-[address] Leandro Lau Work Phone: [facility] Start: 03-09-2022 End: 03-09-2022 [facility] Start: 02-27-2022 End: 02-27-2022 Patient encounter procedure [facility] Start: 02-26-2022 End: 02-26-2022 [facility] Start: 02-02-2022 End: 02-02-2022 [facility] Start: 11-05-2021 End: 11-05-2021 [facility] Start: 10-06-2021 End: 10-06-2021 Patient encounter procedure [facility]Ne[facility] Start: 10-01-2021 End: 10-01-2021 Patient encounter procedure [facility]-Laboratory, Specimen Start: 09-30-2021 End: 09-30-2021 Patient encounter procedure [facility]Radiology, [facility] Start: 09-16-2021 End: 09-16-2021 [facility] Start: 03-18-2017 Observation care discharge management Abelino Capellan [facility] Start: 03-17-2017 Sbsq observation care/day 25 minutes Abelino Capellan [facility] Start: 03-16-2017 Sbsq observation care/day 25 minutes Abelino Capellan [facility] Start: 03-15-2017 Sbsq observation care/day 25 minutes Abelino Capellan [facility] Start: 03-14-2017 Sbsq observation care/day 25 minutes Abelino Capellan [facility] Start: 03-13-2017 End: 03-18-2017 Ambulatory Abelino Capellan Facility:[place] Start: 03-13-2017 Initial observation care/day 50 minutes Abelino Capellan [facility] Start: 03-28-2016 End: 03-29-2016 Ambulatory LUIS E ORTIZ [facility] Procedures Date Procedure Procedure Detail Performing Clinician Start: 12-13-2024 X-ray of chest, PA a nd lateral views Dr. Leandro Lua MD Work Phone: Start: 12-06-2024 Fluoroscopic guidance Scott Lua MD Work Phone: Start: 12-06-2024 X-ray of spine, sing le view Dr. Leandro Lua MD Work Phone: Start: 12-06-2024 Balloon kyphoplasty of fracture of spine Dr. Leandro Lua MD Work Phone: Start: 12-06-[address] Leandro Lua MD Work Phone: Start: 12-03-2024 Urnls dip stick/tabl et reagent auto microscopy Dr. Leandro Lua MD Work Phone: Start: 12-03-[address] Leandro dawn MD Work Phone: Start: 11-29-2024 Balloon kyphoplasty of fracture of spine Dr. Leandro Lua MD Work Phone: Start: 11-27-2024 MRI of thoracic spine Scott Lua MD Work Phone: Start: 11-27-2024 MRI of lumbar spine Dr. Leandro Lua MD Work Phone: Start: 11-27-2024 Total iron binding capacity measurement Dr. Leandro Lua MD Work Phone: Start: 11-26-2024 Serum inorganic phosphate measurement Dr. Leandro Lua MD Work Phone: Start: 11-25-2024 CT of lumbar spine Dr. Leandro Lua MD Work Phone: Start: 11-25-2024 X-ray of lumbar spin e, two or three views Dr. Leandro Lua MD Work Phone: Start: 11-25-2024 Vitamin D, 25-hydrox y measurement Dr. Leandro Lua MD Work Phone: Comment on above: Vitamin D StatusDefi ciency: <20 ng/mL (50nmol/L)Insufficiency: 20-30 ng/mL (50-75 nmol/L)Sufficiency: 30-100 ng/mL (75-250 nmol/L)Toxicity: >100 ng/mL (>250 nmol/L) Start: 11-21-2024 Vitamin D, 25-hydrox y measurement Dr. Leandro Lua MD Work Phone: Comment on above: Vitamin D StatusDefi ciency: <20 ng/mL (50nmol/L)Insufficiency: 20-30 ng/mL (50-75 nmol/L)Sufficiency: 30-100 ng/mL (75-250 nmol/L)Toxicity: >100 ng/mL (>250 nmol/L) Start: 10-17-2024 SARS-CoV-2, Influenz a & RSV (PCR) Dr. Leandro Lua MD Work Phone: Start: 11-16-2023 X-ray of lumbosacral spine Dr. Leandro Lua Work Phone: Start: 08-05-2023 Coronavirus COVID-19 PCR Start: 08-05-2023 Influenza Types A,B Direct FA ([facility]) Start: 08-05-2023 Respiratory syncytia l virus antigen assay Start: 05-18-2023 Urine culture Start: 08-25-2022 Plain x-ray of pelvi s and lower extremity Start: 08-25-2022 X-ray of lumbar spin e, two or three views Start: 10-06-2021 Influenza Types A,B Direct FA ([facility]) Start: 10-06-2021 End: 10-06-2021 Respiratory syncytial virus antigen assay Start: 10-01-2021 End: 10-01-2021 Clostridium difficile detection Start: 10-01-2021 Enteric Bacteriology Start: 09-30-2021 Diagnostic radiograp hy of abdomen, decubitus and erect Start: 09-16-2021 Urine culture H/O: hysterectomy History of hysterectomy Dr. Leandro Lua Work Phone: History of operative procedure on knee History of knee replacement Dr. Leandro Lua Work Phone: Influenza Types A,B Direct FA ([facility]) Respiratory syncytia l virus antigen assay Plan of Treatment Date Care Activity Detail Author Start: 12-07-2024 Patient discharge [facility] Start: 12-07-2024 Referral to service [facility] Start: 12-05-2024 Consultation [facility] Start: 12-05-2024 [facility] Start: 12-04-2024 Care planning and pr oblem solving actions [facility] Start: 12-02-2024 Admission procedure [facility] Start: 11-29-2024 Care planning and pr oblem solving actions [facility] Start: 11-29-2024 [facility] Start: 11-27-2024 End: 11-28-2024 [facility] Start: 11-27-2024 [facility] Start: 11-26-2024 Consultation for pain [facility] Start: 11-25-2024 Ambulation without limitation [facility] Start: 11-25-2024 Assessment of risk o f venous thromboembolism [facility] Start: 11-25-2024 Catheterization of vein [facility] Start: 11-25-2024 Inhalation therapy procedure [facility] Start: 11-25-2024 Insertion of cathete r into peripheral vein [facility] Start: 11-25-2024 Providing care accor ding to standard [facility] Start: 11-25-2024 Referral to occupati onal therapist [facility] Start: 11-25-2024 Referral to service [facility] Start: 11-25-2024 [facility] Start: 11-25-2024 Following clinical p athway protocol [facility] Start: 11-25-2024 [facility] Start: 11-25-[address] [facility] [facility] Start: 11-25-2024 Hospital admission, emergency, from emergency room, medical nature [facility] Start: 11-25-2024 Admission procedure [facility] Start: 11-25-2024 [facility] Bilirubin measurement, urine [facility] Hemoglobin [Presence] in Urine [facility] Measurement of keton es in urine using dipstick [facility] Microscopic urinalysis [facility] Patient referral [facility] Work Phone: pH of Urine [facility] Specific gravity of Urine [facility] Urine blood test [facility] Urine dipstick for glucose [facility] Urine dipstick for l eukocyte esterase [facility] Urine dipstick for nitrite [facility] Urine dipstick for protein [facility] Urine examination [facility] Urine microscopy: ep ithelial cells [facility] Urine Microscopy: white cells [facility] Urobilinogen [Presence] in Urine [facility] Immunizations Immunization Date Immunization Notes Care Provider Jesenia marquez 06-10-2015 [facility], [facility], [facility] Payers Date Payer Category Payer Self-pay [id number] 2024 Unknown [id number] Medicare [id number] Medicare ANTHEM MEDICARE SENIOR [employer] [id number] Unknown [id number] Unknown [id number] Unknown [id number] 2.16.840.1.001540.3.579.2.462 Unknown [id number] 2.16.840.1.311706.3.579.2.462 Unknown [id number] 2.16.840.1.459945.3.579.2.462 Unknown [id number] 2.16.840.1.552026.3.579.2.462 Unknown [id number] 2.16.840.1.598984.3.579.2.462 Unknown [id number] 2.16.840.1.659407.3.579.2.462 Unknown [id number] 2.16.840.1.506612.3.579.2.462 Unknown [id number] 2.16.840.1.311133.3.579.2.462 Unknown [id number] 2.16.840.1.462462.3.579.2.462 Unknown [id number] 2.16.840.1.230047.3.579.2.462 Unknown [id number] 2.16.840.1.064606.3.579.2.462 Unknown [id number] 2.16.840.1.702380.3.579.2.462 Unknown [id number] 2.16.840.1.259369.3.579.2.462 Unknown [id number] 2.16840.1.310511.3.579.2.462 Unknown [id number] 2.16.840.1.597043.3.579.2.462 Unknown [id number] 2.16.840.1.422265.3.579.2.462 Unknown [id number] 2.16.840.1.573280.3.579.2.462 Unknown [id number] 2.16.840.1.980901.3.579.2.462 Unknown [id number] 2.16.840.1.864763.3.579.2.462 Unknown [id number] 2.16.840.1.488554.3.579.2.462 Unknown [id number] 2.16.840.1.099818.3.579.2.462 Unknown [id number] 2.16.840.1.998529.3.579.2.462 Unknown [id number] 2.16.840.1.857881.3.579.2.462 Unknown [id number] 2.16.840.1.595268.3.579.2.462 Social History Date Type Detail Facility Start: 02-26-2021 End: 10-08-2023 Tobacco smoking status NHIS Unknown if ever smoked [facility] Start: 1940 Sex Assigned At Female [facility] Start: 03-19-2017 None [facility] Start: 03-19-2017 Spouse/ Signif icant Other [facility] Start: 03-19-2017 Non-smoker [facility] Start: 10-08-2023 End: 11-25-2024 Tobacco smoking status NHIS Ex-smoker (finding) [facility] Start: 10-31-2024 End: 11-25-2024 Sex Female (finding) [facility] NEGATED: Highlighted row Not [facility] Medical Equipment Procedure Code Equipment Code Equipment Origin al Text Equipment Identifier Dates Kyphoplasty Orthopaedic ceme nt preparation/delivery kit [id number] FDA Start: 11-29-2024 Kyphoplasty ELEANOR KYPHO AUTOPLEX FDA Start: 12-06-2024 Kyphoplasty ELEANOR KYPHO AUTOPLEX FDA Start: 12-06-2024 Kyphoplasty ELEANOR KYPHO AUTOPLEX FDA Start: 12-06-2024 Goals Date Patient Goal Desired Activity /State Functional Status Date Assessment Result Facility 12-07-2024 Functional status Ambulates [facility] Work Phone: Mental Status Date Assessment Result Facility 12-07-2024 Cognitive function Level Of Cons ciousness Awake;Alert;Appropriate;Follow s Commands [facility] Work Phone: 12-07-2024 Cognitive function Voice/Name [facility] Work Phone: Clinical Notes 11-25-2024 to 12-13-2024 Note Date & Type Note Facility 12-13-2024 Radiology Diagnostic study note [facility] Imaging Services [address] [place] [address] Chest PA and Lateral MR#: [id number] Acct: [id number] Name: TORSTEN COLINDRES Rep #: [id number] : 1940 F 84 From: Travon Mayo DO PCP: Dr. Leandro Lua MD Status: MARTY JONES Study:Chest PA and Lateral Date of Exam: 12/13/24 Exam# [id number] Ordering Dr: Leandro Lua MD PROCEDURE: CHEST PA AND LATERAL 12/13/2024 REASON FOR EXAM: SOB TECHNIQUE: Frontal and lateral views of the chest. COMPARISON: Chest x-ray study dated 01/14/2024 FINDINGS: Hardware: Radiopaque right shoulder hardware is noted. The visualized portions appear to be in satisfactory position. Surgical clips are projected over the abdomen. A radiopaque density is projected over the lower thoracic spine which may be due to prior vertebroplasty. Clinical correlation is recommended. Heart: Heart size and configuration are within normal limits. Mediastinum: Pulmonary vasculature and hilar structures are unremarkable. Arteriosclerotic vascular disease of the aorta is noted. Trachea is midline. Lungs: There are linear density seen in the lung bases which are compatible withparenchymal scars and are similar when compared to the prior study. There was no atelectasis, consolidation, effusion or pneumonic infiltrate. Bones: Diffuse osteopenia of the bony thorax is seen. There is an S shaped scoliotic curvature of the spine. There is increased kyphotic curvature of the thoracolumbar junction. There has been previous vertebroplasty of what appears to be the T12 vertebral body. Clinical correlation is recommended. There is a decrease in height of what appears to be the T11 vertebral body. This is probably related to an osteoporotic compression fracture. This is worse when compared to the prior exam. Arthritic changes are seen involving the acromioclavicular joints bilaterally. RAD/Chest PA and Lateral IMPRESSION: No acute cardiopulmonary process is identified radiographically. Parenchymal scarring lung bases Arteriosclerotic vascular disease of the aorta. Diffuse osteopenia bony thorax. There is a decrease in height of the T11 and T12 vertebral bodies. These are probably related to osteoporotic compression fractures. MRI may be of value if clinically warranted. Reading Location: [id number] CC: Dr. Leandro Lua MD ~ Tester Regulator: Signed [facility] 12-07-2024 Note [facility] Medical Records Department [address] [place] [address] Discharge Summary 12/07/24 1358 MR#: [id number] Acct: [id number] Name: TORSTEN COLINDRES Rep #: [id number] : 1940 84 From: Tonya Cortez DO PCP: Dr. Leandro Lua MD Status:ADM IN Location: [place] [address] Providers Date of Admission: 12/02/24 Date of Discharge: 12/07/24 Primary Care Physician: Dr. Leandro Lua MD Consultations 11/26/24 10:17 Consult: Pain Management Routine Consulting Provider: Eleonora Sharp Reason for Consult: pain Lumbar-compression fx EMERGENT Consult: No Notified: Yes Date Notified: 11/27/24 Time Notified: 08:14 Method of Notification: Answering Service 12/05/24 07:58 Consult: Infectious Disease Routine Consulting Provider: Nestor Amado Reason for Consult: ESBL UTI EMERGENT Consult: No Notified: Yes Date Notified: 12/05/24 Time Notified: 08:00 Method of Notification: Text Reason For Visit: LOW BACK PAIN Diagnosis Discharge Diagnosis (1) Collapse of lumbar vertebra: Status: Acute Code(s): M48.56XA - Collapsed vertebra, not elsewhere classified, lumbar region, initial encounter for fracture Qualifiers: Encounter type: initial encounter Qualified Code(s): M48.56XA - Collapsed vertebra, not elsewhere classified, lumbar region, initial encounter for fracture (2) Age-related osteoporosis with current pathological fracture, unspecified site, initial encounter for fracture: Status: Acute Code(s): M80.00XA - Age-related osteoporosis with current pathological fracture, unspecified site, initial encounter for fracture (3) Disease of bone and joint: Status: Acute Code(s): M89.9 - Disorder of bone, unspecified; M25.9 - Joint disorder, unspecified Medications at Discharge Home Medications calcium carbonate (Calcium 600) 600 mg PO DAILY 04/24/22 calcium carbonate (Tums) 200 mg PO BID PRN dyspepsia 04/24/22 fluticasone propionate 50 mcg/actuation nasal spray,suspension 2 spray intranasal DAILY 04/24/22 multivitamin 1 tab PO DAILY 04/24/22 acetaminophen 650 mg tablet,extended release (Arthritis Pain Relief (acetaminophen) ER) 650 mg PO Q8H PRN pain 11/25/24 Held on 12/07/24. Instructions: Until done taking 1000 mg 3 times daily cholecalciferol (vitamin D3) 25 mcg (1,000 unit) capsule (Vitamin D3) 25 mcg PO DAILY 11/25/24 cranberry 500 mg capsule 500 mg PO DAILY 11/25/24 dorzolamide 22.3 mg-timolol 6.8 mg/mL eye drops 1 drp ophthalmic (eye) BID 11/25/24 guaifenesin 600 mg tablet, extended release 12 hr (Mucinex) 600 mg PO BID PRN congestion 11/25/24 ketorolac 0.5 % eye drops 1 drp ophthalmic (eye) TID 11/25/24 magnesium oxide 400 mg (241.3 mg magnesium) tablet 400 mg PO DAILY 11/25/24 meclizine 12.5 mg tablet 12.5 mg PO TID PRN dizziness 11/25/24 melatonin 5 mg tablet 5 mg PO QHS PRN sleep 11/25/24 pantoprazole 40 mg tablet,delayed release 40 mg PO DAILY 11/25/24 acetaminophen 500 mg tablet 1,000 mg (2 x 500 mg) PO Q8 #0 tabs 12/07/24 baclofen 10 mg tablet 10 mg PO QHS MUSCLE SPASM #1 TAB 12/07/24 hydrochlorothiazide 12.5 mg capsule 12.5 mg PO DAILY #30 caps 12/07/24 lidocaine 5 % topical patch 1 patch topical DAILY #15 ea 12/07/24 loperamide 2 mg capsule 2 mg PO Q4H PRN PRN Diarrhea/Loose Stools #0 caps 12/07/24 metoprolol tartrate 25 mg tablet 25 mg PO TID #90 tabs 12/07/24 ondansetron 4 mg disintegrating tablet 4 mg PO Q8H PRN nausea and vomiting #9 tabs 12/07/24 sulfamethoxazole 800 mg-trimethoprim 160 mg tablet (Bactrim DS) 1 tab PO BID #4 tabs 12/07/24 Hospital Course Procedures EKG and - (CT lumbar spine/MRI thoracic and lumbar spine) Summary of Care Provided Minutes Spent on Discharge: 40 Hospital Course: TORSTEN COLINDRES, is a 84 F who presented to the emergency department at [facility] on 11/25/2024 with a chief complaint of intractable back pain. Patient reported on presentation she has had intermittent low back pain since about 8 years ago when she sustained compression fractures at T12 and L1. About a week ago she was doing some housekeeping and lifting shoe boxes of paint supplies out of the schwartz closet at which time she developed increasing low back pain on the right side. She saw her primary care doctor about 4 days ago and was given an IM shot of a muscle relaxer, anti-inflammatory and was prescribed prednisone, Ultram, and a muscle relaxant to take at bedtime. She was also taking Tylenol 650 mg 3 times a day. It was helping until about 2 days ago when she had an ophthalmology procedure and was moving around for procedure done at the office and she developed worsening low back pain. At baseline she has been utilizing a walker but having more difficulty with her ADLs and IADLs. She lives alone at baseline. Her granddaughter helps her and recently has had such severe pain that her granddaughter has had to move her legs in and out of (more content not included)... [facility] 12-02-2024 Evaluation note Diagnosis Onset Date Resolution Infection due to ESBL-producing Escherichia coli acute December 02 11:50am Intractable low back pain resolved December 02, 2024 11:50am Age-related osteoporosis with current pathological fracture, unspecified si inactive December 02, 2024 11:50am Collapse of lumbar vertebra inactive December 02, 2024 11:50am Compression fracture of L1 lumbar vertebra inactive December 02, 2 025 11:50am DDD (degenerative disc disease), lumbar inactive December 02 11:50am Disease of bone and joint inactive December 02, 2024 11:50am Wedge compression fracture of T12 vertebra inactive December 02, 2024 11:50am [facility] Work Phone: 1(291) 707-884004-15-2025 [facility] Medical Records Department [address] [place] [address] Consultation 11/28/24919 MR#: [id number] Acct: [id number] Name: TORSTEN COLINDRES Rep #: [id number] : 1940 84 From: Haile Ramirez MD PCP: Dr. Leandro Lua MD Status:ADM [place] Location: MS3 JP472-4 Assessment Plan Assessment/Plan (1) Age-related osteoporosis with current pathological fracture, unspecified site, initial encounter for fracture: (2) Disease of bone and joint: (3) Collapse of lumbar vertebra: QUALIFIERS: Encounter type: initial encounter Qualified Code(s): M48.56XA - Collapsed vertebra, not elsewhere classified, lumbar region, initial encounter for fracture PLAN: Plan MRI imaging demonstrates acute/subacute L1 compression fracture. I believe this is likely responsible for the pain and debility she is experiencing. Given the severity of her symptoms, plan for L1 kyphoplasty. risks and benefits for the kyphoplasty were discussed at great length. Risks were discussed including but not limited to infection, bleeding, nerve damage such as paralysis, embolism or even . Plan was to proceed with the procedure -Continue scheduled Tylenol 1000 g every 8hrs -Continue celebrex -Continue as needed oxycodone -Continue as needed Dilaudid 0.5 mg for breakthrough -Continue as needed tizanidine -Continue lidocaine patch -Lovenox 40mg will need to be held 12 hours pior to spinal intervention. HPI Consult Data Date of Consult: 11/28/24 HPI Narrative Reason for Consultation: Back Pain HPI Narrative: TORSTEN COLINDRES, is a 84 F remains unchanged compared to yesterday. She still has severe back pain that is axial in nature. It is worsened with attempts to move, stand, or ambulate. She is struggling to participate meaningfully in rehabilitation efforts. The pain does not radiate. She obtained MRI yesterday showing evidence of chronic T12 fracture, but actue inferior aspect of L1 compression fracture. Denies saddle numbness, loss of bowel or bladder control. The pain can be 10/10 in severity. Medication has helped take the edge off. [facility] Medical History Hemorrhoids Cancer Arthritis Hypertension GERD (gastroesophageal reflux disease) Constipation BPPV (benign paroxysmal positional vertigo) Compression fracture of L1 lumbar vertebra Home Medications ???Medication ???Instructions ???Recorded ???Last Taken ???Type calcium carbonate (Calcium 600) 600 mg PO DAILY 04/24/22 11/24/24 History calcium carbonate (Tums) 200 mg PO BID PRN dyspepsia 11/23/24 History fluticasone propionate 50 2 spray intranasal DAILY 04/24/22 Unknown History mcg/actuation nasal spray,suspension metoprolol succinate 25 mg 25 mg PO DAILY 04/24/22 11/24/24 H istory tablet,extended release 24 hr multivitamin 1 tab PO DAILY 04/24/22 11/24/24 H istory acetaminophen 650 mg 650 mg PO Q8H PRN pain 11/25/24 History tablet,extended release (Arthritis Pain Relief (acetaminophen) ER) baclofen 10 mg tablet 10 mg PO QHS MUSCLE SPASM 11/25/24 11/24/24 History cholecalciferol (vitamin D3) 25 25 mcg PO DAILY 11/25/24 11/24/24 History mcg (1,000 unit) capsule (Vitamin D3) cranberry 500 mg capsule 500 mg PO DAILY 11/25/24 Unknown H istory dorzolamide 22.3 mg-timolol 6.8 1 drp ophthalmic (eye) BID 5 Unknown History mg/mL eye drops guaifenesin 600 mg tablet, 600 mg PO BID PRN congestion 11/25 Unknown History extended release 12 hr (Mucinex) hydrochlorothiazide 25 mg tablet 25 mg PO DAILY 11/25/24 11/24/24 H istory ketorolac 0.5 % eye drops 1 drp ophthalmic (eye) TID 5 11/25/24 History magnesium oxide 400 mg (241.3 mg 400 mg PO DAILY 11/25/24 11/24/24 History magnesium) tablet meclizine 12.5 mg tablet 12.5 mg PO TID PRN dizziness 11/25 Unknown History melatonin 5 mg tablet 5 mg PO QHS PRN sleep 11/25/24 Unk nown History naproxen 250 mg tablet 250 mg PO BID 11/25/24 11/24/24 Hi story pantoprazole 40 mg tablet,delayed 40 mg PO DAILY 11/25/24 11/24/24 History release prednisone 10 mg tablet See Taper PO .COMPLEX 11/25/2407/10 History Allergy/AdvReac Type Severity Reaction Status Date / Time norfloxacin (From Noroxin) Allergy unknown Verified 11/25/24 09:26 polymyxin B Allergy Swelling Verified 11/25/24 09:26 levofloxacin (From Levaquin) AdvReac Diarrhea Verified 11/25/24 09:26 phenylephrine (From Sudafed AdvReac Other Verified 11/25/24 09:26 PE) Surgical History History of gastric bypass History of hysterectomy Hx of shoulder replacement History of knee replacement Social History Smoking Status: Former smok (more content not included)...[facility]04-14-2025 [facility] Medical Records Department [address] [place] [address] Consultation 11/27/24 1251 MR#: [id number] Acct: [id number] Name: TORSTEN COLINDRES Rep #: [id number] : 1940 84 From: Haile Ramirez MD PCP: Dr. Leandro Lua MD Status:ADM [facility] Location: [place] [address] Assessment Plan Assessment/Plan (1) Compression fracture of L1 lumbar vertebra: (2) Wedge compression fracture of T12 vertebra: PLAN: Plan Plan for thoracic and lumbar MRI without contrast to evaluate for acuity of compression fracture. Prior imaging from 2022 demonstrates T12 and L1 compression fractures at that time. However on comparison it appears that the L1 fracture may have progressed recently. This may suggest that there is some acuity to this worsening fracture at the L1 level that may be contributing to some of her severe pain symptomology. -MRI imaging may also yield information regarding possible spinal stenosis. -Consider L1 kyphoplasty -Continue scheduled Tylenol 1000 g every 8hrs -Continue celebrex -Continue as needed oxycodone -Continue as needed Dilaudid 0.5 mg for breakthrough -Continue as needed tizanidine -Continue lidocaine patch -Lovenox 40mg will need to be held 12 hours pior to spinal intervention. HPI Consult Data Date of Consult: 11/27/24 HPI Narrative Reason for Consultation: L1 compression fracture concern HPI Narrative: The patient presents with worsening thoracolumbar back pain without radicular symptoms. She has a known history of compression fractures at the T12 and L1 levels, she says from 8 years ago that for years was manageable with conservative care but have become significantly more painful and functionally limiting in the last two weeks. The pain worsened when she was trying to reach for a box in the closet. Dr. Lua started her on some medications which helped a little bit but fortunately a few days ago after an ophthalmology procedure the pain worsened even more. She describes the pain as very severe and it is axial in nature, worsened by standing, walking, and transitional movements. She rates it as up to over 10/10 in severity. She states in the last few days she is barely able to ambulate stand as difficulty getting in and out of cars which is why she end hospital. The medications in the hospital are helping to take the edge off. She has been having difficulty doing even PT in the hospital. she obtain new x- rays CT scan showing the above fractures Along with some spondylolisthesis. Due to the severity of his symptoms and functional decline, she is concerned about the possibility of a new fracture or progression of his condition and is seeking further evaluation and options for interventional treatment. She denies loss of bowel or bladder control or saddle anesthesia [facility] Medical History Hemorrhoids Cancer Arthritis Hypertension GERD (gastroesophageal reflux disease) Constipation BPPV (benign paroxysmal positional vertigo) Compression fracture of L1 lumbar vertebra Home Medications ???Medication ???Instructions ???Recorded ???Last Taken ???Type calcium carbonate (Calcium 600) 600 mg PO DAILY 04/24/22 11/24/24 History calcium carbonate (Tums) 200 mg PO BID PRN dyspepsia 11/23/24 History fluticasone propionate 50 2 spray intranasal DAILY 04/24/22 Unknown History mcg/actuation nasal spray,suspension metoprolol succinate 25 mg 25 mg PO DAILY 04/24/22 11/24/24 H istory tablet,extended release 24 hr multivitamin 1 tab PO DAILY 04/24/22 11/24/24 H istory acetaminophen 650 mg 650 mg PO Q8H PRN pain 11/25/24 History tablet,extended release (Arthritis Pain Relief (acetaminophen) ER) baclofen 10 mg tablet 10 mg PO QHS MUSCLE SPASM 11/25/24 11/24/24 History cholecalciferol (vitamin D3) 25 25 mcg PO DAILY 11/25/24 11/24/24 History mcg (1,000 unit) capsule (Vitamin D3) cranberry 500 mg capsule 500 mg PO DAILY 11/25/24 Unknown H istory dorzolamide 22.3 mg-timolol 6.8 1 drp ophthalmic (eye) BID 5 Unknown History mg/mL eye drops guaifenesin 600 mg tablet, 600 mg PO BID PRN congestion 11/25 Unknown History extended release 12 hr (Mucinex) hydrochlorothiazide 25 mg tablet 25 mg PO DAILY 11/25/24 11/24/24 H istory ketorolac 0.5 % eye drops 1 drp ophthalmic (eye) TID 5 11/25/24 History magnesium oxide 400 mg (241.3 mg 400 mg PO DAILY 11/25/24 11/24/24 History magnesium) tablet meclizine 12.5 mg tablet 12.5 mg PO TID PRN dizziness 11/25 Unknown History melatonin 5 mg tablet 5 mg PO QHS PRN sleep 11/25/24 Unk nown History naproxen 250 mg tablet 250 mg PO BID 11/25/24 11/24/24 Hi story pantoprazole 40 mg tablet,delayed 40 mg PO DAILY 11/25/24 11/24/24 History release prednisone (more content not included)...[facility]04-12-2025 Evaluation note* Diagnosis Onset Date Resolution Status Admit Date DDD (degenerative disc disease), lumbar acute November 25 11:27am Intractable low back pain acute November 25, 2024 11:27am [facility] Work Phone: 1(382) 700-796304-12-2025 Radiology Diagnostic study note [facility] Imaging Services [address] [place] [address] Spine Lumbar without Contrast MR#: [id number] Acct: [id number] Name: TORSTEN COLINDRES Rep #: [id number] : 1940 F 84 From: Isatu Capone MD PCP: Dr. Leandro Lua MD Status: REG E R Study:Spine Lumbar without Contrast Date of E xam: 11/25/24 Exam# [id number] Ordering Dr: Megan Cortez DO PROCEDURE: SPINE LUMBAR WITHOUT CONTRAST 11/25/2024 REASON FOR EXAM: PAIN WITH H/O FXS TECHNIQUE: Lumbar spine CT without contrast. Coronal and Sagittal reconstruction series were provided. One or more dose reduction techniques were used (e.g., Automated exposure control, adjustment of the mA and/or kV according to patient size, use of iterative reconstruction technique COMPARISON: Same day L-spine radiographs. RADIATION DOSE SUMMARY: CTDlvol: 26 mGy DLP: 900 mGycm FINDINGS: Vertebrae: Diffuse osseous demineralization. Re-demonstration of severe T12 andmoderate L1 vertebral body compression fracture deformities. The vertebral body heights are otherwise maintained. No acute fracture. Multilevel degenerative disc disease with vacuum effect. Alignment: Grade 1 anterolisthesis of L1 onto L2, L2 onto L3, L3 onto L4, and grade 2 anterolisthesis of L4 onto L5. No traumatic listhesis. Sacrum: Unremarkable. Chronic rib fracture deformities. Calcific plaque of the aortoiliac vessels. Hiatal hernia. Severe mitral annular calcifications. Bibasilar fibrosis. CT/Spine Lumbar without Contrast IMPRESSION: NO ACUTE LUMBAR FRACTURE. DEGENERATIVE CHANGES. Reading Location: [facility] CC: Dr. Tonya Cortez DO; Dr. Leandro Lua MD ~ Tester Regulator: Signed [facility]04-12-2025 Radiology Diagnostic study note [facility] Imaging Services [address] [place] [id number] Lumbar Spine 2 or 3 Views MR#: [id number] Acct: [id number] Name: TORSTEN COLINDRES Rep #: [id number] : 1940 F 84 From: Isatu Capone MD PCP: Dr. Leandro Lua MD Status: REG E R Study:Lumbar Spine 2 or 3 Views Date of Exam: 11/25/24 Exam# [id number] Ordering Dr: Lashawn De La Cruz PROCEDURE: LUMBAR SPINE 2 OR 3 VIEWS 11/25/2024 REASON FOR EXAM: PAIN TECHNIQUE: 2 view(s) of the lumbar spine COMPARISON: None. FINDINGS: Vertebrae: Chronic severe T12 and mild L1 vertebral body compression fracture deformities. The vertebral body heights are otherwise maintained. No acute fracture visualized. Diffuse osseous demineralization. Discs: Advanced multilevel disc space narrowing with endplate osteophytes. Alignment: Grade 1 anterolisthesis of L1 onto L2, L2 onto L3, L3 onto L4, and grade 2 anterolisthesis of L4 onto L5. Other: Calcification of the thoracic aorta. Scattered abdominal surgical clips. RAD/Lumbar Spine 2 or 3 Views IMPRESSION: ADVANCED DEGENERATIVE CHANGES OF THE LUMBAR SPINE. Reading Location: [facility] CC: Dr. Leandro Lua MD; SHON Uribe ~ Tester Regulator: [facility] Work Phone: Evaluation note* Diagnosis Onset Date Resolution Status Acute sinusitis acute [facility] Work Phone: Reason for referral (narrative)No reason for referral information [facility] Work Phone: Summary Purpose Family History No Family History Records Found Relationship Condition Age at Onset Recorded Date/T austen Unknown Family History?No pertinent history Unkno wn March 19, 2017 8:40am Family History?No pertinent history Unkno wn March 19, 2017 8:40am Relationship Condition Age at Onset Recorded Date/T austen Unknown Family History?No pertinent history Unkno wn March 19, 2017 7:40am Family History?No pertinent history Unkno wn March 19, 2017 7:40am Relationship Condition Age at Onset Recorded Date/T austen Unknown Family History?No pe rtinent history Unknown March 19, 2017 7:40am Family History?No pe rtinent history Unknown March 19, 2017 7:40am Family History?No pe rtinent history Unknown March 26, 2023 12:58pm Relationship Condition Age at Onset Recorded Date/T austen Unknown Family History?No pe rtinent history Unknown March 19, 2017 8:40am Family History?No pe rtinent history Unknown March 19, 2017 8:40am Family History?No pe rtinent history Unknown March 26, 2023 1:58pm Advance Directives No Advanced Directives Records Found Advance Directive Response Recorded Date/ Time Advance Directives No August 24, 2016 3:36pm Living Will No February 26, 2021 11:16am Power of Reproducer No February 26 11:16am Advance Directive Response Recorded Date/ Time Advance Directives No August 24, 2016 2:36pm Living Will No February 26, 2021 10:16am Power of Reproducer No February 26 10:16am Advance Directive Response Recorded Date/ Time Advance Directives No March 26, 2023 12:58pm Living Will No March 26 12:58pm Power of Reproducer No March 26 023 12:58pm Advance Directive Response Recorded Date/ Time Advance Directives No March 26, 2023 1:58pm Living Will No March 26 1:58pm Power of Reproducer No March 26 2 023 1:58pm Advance Directive Response Recorded Date/ Time Advance Directives No March 26, 2023 1:58pm Advance Directive Response Recorded Date/ Time Living Will Yes November 25, 2024 2:20pm Do you have a Healthcare Power of Reproducer? Yes November 25, 2024 2:20pm Name of Medical Power of Reproducer Jt Langley November 25, 2024 2:20pm Advance Directives No March 26, 2023 1:58pm Chief Complaint and Reason for Visit Chief Complaint VIRAL SYMPTOMS Chief Complaint LABWORK Chief Complaint LABWORK TESTING Chief Complaint LABWORK TESTING Sinus infection/VERTIGO Reason for Visit Acute sinusitis Chief Complaint VIRAL SYMPTOMS EAR PAIN, SINUS PRESSURE Reason for Visit Acute sinusitis Chief Complaint Admit Date LOW BACK PAIN November 25, 2024 11: 27am Reason for Visit Admit Date DDD (degenerative disc disease), lumbar November 25, 2024 11:27am Intractable low back pain November 25 11:27am Chief Complaint Admit Date LOW BACK PAIN Farhana 12th, 2025 11: 36am LOW BACK PAIN November 26, 2024 2:0 7pm LOW BACK PAIN November 27, 2024 8:2 1am LOW BACK PAIN November 28, 2024 9:2 7am LOW BACK PAIN November 29, 2024 10: 14am Arrhythmia November 29, 2024 2:4 2pm LOW BACK PAIN November 30, 2024 8:4 5am LOW BACK PAIN December 01, 2024 10: 22am LOW BACK PAIN December 02, 2024 8:5 8am LOW BACK PAIN December 02, 2024 11: 50am LOW BACK PAIN December 03, 2024 8:4 8am LOW BACK PAIN December 04, 2024 7:1 0am LOW BACK PAIN December 05, 2024 6:5 4am LOW BACK PAIN December 06, 2024 1:2 5pm LOW BACK PAIN December 07, 2024 1:5 8pm Shortness of breath December 13, 2024 4:5 5pm Reason for Visit Admit Date Infection due to ESBL-producing Escheric hia coli December 02, 2024 11:50am Intractable low back pain December 02 11:50am Age-related osteoporosis wit h current pathological fracture, unspecified si December 02, 2024 11:50am Collapse of lumbar vertebra December 02, 2024 11:50am Compression fracture of L1 lumbar verteb ra December 02, 2024 11:50am DDD (degenerative disc disease), lumbar December 02, 2024 11:50am Disease of bone and joint December 02 11:50am Wedge compression fracture of T12 verteb ra December 02, 2024 11:50am Additional Source Comments INFORMATION SOURCE (unrecogn ized section and content) DATE CREATED AUTHOR 02/08/2018 [facility] DATE CREATED AUTHOR AUTHOR'S ORGANIZ ATION 02/09/2018 [facility] DATE CREATED AUTHOR AUTHOR'S ORGANIZ ATION 01/17/2025 [facility] Goals (unrecognized section and content) Goals may be documented in a n alternate sectionGoals may be documented in an alternate sectionGoals may be documented in an alternate sectionGoals may be documented in an alternate sectionGoals may be documented in an alternate sectionGoals may be documented in an alternate sectionGoals may be documented in an alternate sectionGoals may be documented in an alternate sectionGoals may be documented in an alternate sectionGoals may be documented in an alternate sectionGoals may be documented in an alternate sectionGoals may be documented in an alternate section Care Teams (unrecognized sec tion and content) Team Status: Active Member Role Status Dates Dr. Leandro Lua MD Primary Care Provider Active Team Status: Inactive Member Role Status Dates Dr. Leandro Lua MD Primary Care Provider Active Start: October 17, 2024 End: October 17, 2024 Dr. Leandro Lau MD Attending Provider Active Start: October 17, 2024 End: October 17, 2024 Team Status: Inactive Member Role Status Dates Dr. Leandro Lua MD Primary Care Provider Active Start: November 21, 2024 End: November 21, 2024 Dr. Leandro Lua MD Attending Provider Active Start: November 21, 2024 End: November 21, 2024 Dr. Leandro Lua MD Referring Provider Active Start: November 21, 2024 End: November 21, 2024 Team Status: Active Member Role Status Dates Dr. Leandro Lua MD Primary Care Provider Active Start: November 25, 2024 Dr. Payam Aldridge MD Emergency Provider Active S tart: November 25, 2024 Dr. Tonya Cortez DO Admit Provider Active Start : November 25, 2024 Dr. Tonya Cortez DO Attending Provider Active S tart: November 25, 2024 Team Status: Active Member Role Status Dates Dr. Leandro Lua MD Family Provider Active Dr. Leandro Lua MD Primary Care Provider Active Team Status: Inactive Member Role Status Dates Dr. Leandro Lua MD Primary Care Provider, Attending Provider Active Team Status: Inactive Member Role Status Dates Dr. Leandro Lua MD Primary Care Provi estrella, Attending Provider, Referring Provider Active Team Status: Inactive Member Role Status Dates Dr. Leandro Lua MD Primary Care Provider, Referring Provider Active Aj MENENDEZ, [place] Attending Provider Active Team Status: Active Member Role Status Dates Dr. Leandro Lua MD Primary Care Provider Active Start: November 25, 2024 Dr. Payam Aldridge MD Emergency Provider Active S tart: November 25, 2024 Dr. Tonya Cortez DO Admit Provider Active Start : November 25, 2024 Dr. Tonya Cortez DO Attending Provider Active S tart: November 25, 2024 Dr. Tonya Cortez DO Other Provider Active Start : November 25, 2024 Team Status: Active Member Role Status Dates Dr. Leandro Lua MD Primary Care Provider Active Start: November 26, 2024 Dr. Payam Aldridge MD Emergency Provider Active S tart: November 26, 2024 Dr. Tonya Cortez DO Admit Provider Active Start : November 26, 2024 Dr. Tonya Cortez DO Attending Provider Active S tart: November 26, 2024 Dr. Tonya Cortez DO Other Provider Active Start : November 26, 2024 Team Status: Active Member Role Status Dates Dr. Leandro Lua MD Primary Care Provider Active Start: November 27, 2024 Dr. Tommie Chowdhury MD Attending Provider Active S tart: November 27, 2024 Dr. Tonya Cortez DO Referring Provider Active S tart: November 27, 2024 Team Status: Active Member Role Status Dates Dr. Leandro Lua MD Primary Care Provider Active Start: November 27, 2024 Dr. Payam Aldridge MD Emergency Provider Active S tart: November 27, 2024 Dr. Tonya Cortez DO Admit Provider Active Start : November 27, 2024 Dr. Tonya Cortez DO Other Provider Active Start : November 27, 2024 Dr. Haile Davis MD Attending Provider Active Start: November 27, 2024 Dr. Haile Davis MD Other Provider Active Start: November 27, 2024 Dr. Eleonora Sharp MD Other Provider Active Star t: November 27, 2024 Team Status: Active Member Role Status Dates Dr. Leandro Lua MD Primary Care Provider Active Start: November 28, 2024 Dr. Payam Aldridge MD Emergency Provider Active S tart: November 28, 2024 Dr. Tonya Cortez DO Admit Provider Active Start : November 28, 2024 Dr. Tonya Cortez DO Other Provider Active Start : November 28, 2024 Dr. Haile Davis MD Attending Provider Active Start: November 28, 2024 Dr. Haile Davis MD Other Provider Active Start: November 28, 2024 Dr. Eleonora Sharp MD Other Provider Active Star t: November 28, 2024 Team Status: Active Member Role Status Dates Dr. Leandro Lua MD Primary Care Provider Active Start: November 29, 2024 Dr. Payam Aldridge MD Emergency Provider Active S tart: November 29, 2024 Dr. Tonya Cortez DO Admit Provider Active Start : November 29, 2024 Dr. Tonya Cortez DO Other Provider Active Start : November 29, 2024 Dr. Haile Davis MD Attending Provider Active Start: November 29, 2024 Dr. Haile Davis MD Other Provider Active Start: November 29, 2024 Dr. Eleonora Sharp MD Other Provider Active Star t: November 29, 2024 Team Status: Active Member Role Status Dates Dr. Leandro Lua MD Primary Care Provider Active Start: November 29, 2024 End: November 29, 2024 Dr. Manju Martinez MD Attending Provider Active Start: November 29, 2024 End: November 29, 2024 Dr. Haile Davis MD Referring Provider Active Start: November 29, 2024 End: November 29, 2024 Team Status: Active Member Role Status Dates Dr. Leandro Lua MD Primary Care Provider Active Start: November 30, 2024 Dr. Payam Aldridge MD Emergency Provider Active S tart: November 30, 2024 Dr. Tonya Cortez DO Admit Provider Active Start : November 30, 2024 Dr. Tonya Cortez DO Other Provider Active Start : November 30, 2024 Dr. Haile Davis MD Attending Provider Active Start: November 30, 2024 Dr. Haile Davis MD Other Provider Active Start: November 30, 2024 Dr. Eleonora Sharp MD Other Provider Active Star t: November 30, 2024 Team Status: Active Member Role Status Dates Dr. Leandro Lua MD Primary Care Provider Active Start: December 01, 2024 Dr. Payam Aldridge MD Emergency Provider Active S tart: December 01, 2024 Dr. Tonya Cortez DO Admit Provider Active Start : December 01, 2024 Dr. Tonya Cortez DO Other Provider Active Start : December 01, 2024 Dr. Haile Davis MD Attending Provider Active Start: December 01, 2024 Dr. Haile Davis MD Other Provider Active Start: December 01, 2024 Dr. Eleonora Sharp MD Other Provider Active Star t: December 01, 2024 Team Status: Active Member Role Status Dates Dr. Leandro Lua MD Primary Care Provider Active Start: December 02, 2024 Dr. Payam Aldridge MD Emergency Provider Active S tart: December 02, 2024 Dr. Tonya Cortez DO Admit Provider Active Start : December 02, 2024 Dr. Tonya Cortez DO Other Provider Active Start : December 02, 2024 Dr. Haile Davis MD Attending Provider Active Start: December 02, 2024 Dr. Haile Davis MD Other Provider Active Start: December 02, 2024 Dr. Eleonora Sharp MD Other Provider Active Star t: December 02, 2024 Team Status: Inactive Member Role Status Dates Dr. Leandro Lua MD Primary Care Provider Active Start: December 02, 2024 End: December 07, 2024 Dr. Payam Aldridge MD Emergency Provider Active S tart: December 02, 2024 End: December 07, 2024 Dr. Tonya Cortez DO Admit Provider Active Start : December 02, 2024 End: December 07, 2024 Dr. Tonya Cortez DO Attending Provider Active S tart: December 02, 2024 End: December 07, 2024 Dr. Tonya Cortez DO Other Provider Active Start : December 02, 2024 End: December 07, 2024 Dr. Eleonora Sharp MD Other Provider Active Star t: December 02, 2024 End: December 07, 2024 Dr. Haile Davis MD Other Provider Active Start: December 02, 2024 End: December 07, 2024 Dr. Nestor Amado MD Other Provider Active Start: December 02, 2024 End: December 07, 2024 Team Status: Active Member Role Status Dates Dr. Leandro Lua MD Primary Care Provider Active Start: December 03, 2024 Dr. Payam Aldridge MD Emergency Provider Active S tart: December 03, 2024 Dr. Tonya Cortez DO Admit Provider Active Start : December 03, 2024 Dr. Tonya Cortez DO Other Provider Active Start : December 03, 2024 Dr. Haile Davis MD Attending Provider Active Start: December 03, 2024 Dr. Haile Davis MD Other Provider Active Start: December 03, 2024 Dr. Eleonora Sharp MD Other Provider Active Star t: December 03, 2024 Team Status: Active Member Role Status Dates Dr. Leandro Lua MD Primary Care Provider Active Start: December 04, 2024 Dr. Payam Aldridge MD Emergency Provider Active S tart: December 04, 2024 Dr. Tonya Cortez , Admit Provider Active Start : December 04, 2024 Dr. Tonya Cortez DO Attending Provider Active S tart: December 04, 2024 Dr. Tonya Cortez DO Other Provider Active Start : December 04, 2024 Dr. Eleonora Sharp MD Other Provider Active Star t: December 04, 2024 Dr. Haile Davis MD Other Provider Active Start: December 04, 2024 Team Status: Active Member Role Status Dates Dr. Leandro Lua MD Primary Care Provider Active Start: December 05, 2024 Dr. Payam Aldridge MD Emergency Provider Active S tart: December 05, 2024 Dr. Tonya Cortez DO Admit Provider Active Start : December 05, 2024 Dr. Tonya Cortez DO Attending Provider Active S tart: December 05, 2024 Dr. Tonya Cortez DO Other Provider Active Start : December 05, 2024 Dr. Eleonora Sharp MD Other Provider Active Star t: December 05, 2024 Dr. Haile Davis MD Other Provider Active Start: December 05, 2024 Dr. Nestor Amado MD Other Provider Active Start: December 05, 2024 Team Status: Active Member Role Status Dates Dr. Leandro Lua MD Primary Care Provider Active Start: December 06, 2024 Dr. Payam Aldridge MD Emergency Provider Active S tart: December 06, 2024 Dr. Tonya Cortez DO Admit Provider Active Start : December 06, 2024 Dr. Tonya Cortez DO Attending Provider Active S tart: December 06, 2024 Dr. Tonya Cortez DO Other Provider Active Start : December 06, 2024 Dr. Eleonora Sharp MD Other Provider Active Star t: December 06, 2024 Dr. Haile Davis MD Other Provider Active Start: December 06, 2024 Dr. Nestor Amado MD Other Provider Active Start: December 06, 2024 Team Status: Active Member Role Status Dates Dr. Leandro Lua MD Primary Care Provider Active Start: December 07, 2024 Dr. Payam Aldridge MD Emergency Provider Active S tart: December 07, 2024 Dr. Tonya Cortez DO Admit Provider Active Start : December 07, 2024 Dr. Tonya Cortez DO Attending Provider Active S tart: December 07, 2024 Dr. Tonya Cortez DO Other Provider Active Start : December 07, 2024 Dr. Eleonora Sharp MD Other Provider Active Star t: December 07, 2024 Dr. Haile Davis MD Other Provider Active Start: December 07, 2024 Dr. Nestor Amado MD Other Provider Active Start: December 07, 2024 Team Status: Inactive Member Role Status Dates Dr. Leandro Lua MD Primary Care Provider Active Start: December 13, 2024 End: December 13, 2024 Dr. Leandro Lau MD Attending Provider Active Start: December 13, 2024 End: December 13, 2024 Dr. Leandro Lua MD Referring Provider Active Start: December 13, 2024 End: December 13, 2024 Team Status: Active Member Role Status Dates Dr. Leandro Lua MD Primary Care Provider Active Start: December 20, 2024 Dr. Leandro Lua MD Attending Provider Active Start: December 20, 2024 Dr. Leandro Lua MD Referring Provider Active Start: December 20, 2024 Team Status: Inactive Member Role Status Dates Dr. Leandro Lua MD Primary Care Provider Active Start: December 20, 2024 End: December 20, 2024 Dr. Leandro Lua MD Attending Provider Active Start: December 20, 2024 End: December 20, 2024 Dr. Leandro Lua MD Referring Provider Active Start: December 20, 2024 End: December 20, 2024 Team Status: Inactive Member Role Status Dates Dr. Leandro Lua MD Primary Care Provider Active Start: December 28, 2024 End: December 28, 2024 Dr. Leandro Lua MD Attending Provider Active Start: December 28, 2024 End: December 28, 2024 Dr. Leandro Lua MD Referring Provider Active Start: December 28, 2024 End: December 28, 2024 FOR RECORDS PERTAINING TO PATIENTS WHO ARE OR HAVE BEEN ENROLLED IN A CHEMICAL DEPENDENCY/SUBSTANCEABUSE PROGRAM, SOME INFORMATION MAY BE OMITTED. This clinical summary was aggregated from multiple sources. Caution should be exercised in using it in the provision of clinical care. This summary normalizes information from multiple sources, and as a consequence, information in this document may materially change the coding, format and clinical context of patient data. In addition, data may be omitted in some cases. CLINICAL DECISIONS SHOULD BE BASED ON THE PRIMARY CLINICAL RECORDS. [facility] [employer] provides no warranty or guarantee of the accuracy or completeness of information in this document.
== END | disposition home or self-care (01) ==
PROVIDERS: PCP Family Medicine Geriatric Medicine; Referring Provider Family Medicine Geriatric Medicine; Visit Provider Family Medicine Geriatric Medicine
DX: I10 Essential (primary) hypertension (principal); E83.42 Hypomagnesemia
CPT/HCPCS: 36415; 80053; 83735; 85025

== ENCOUNTER → 2025-02-20 | Outpatient (CLI) | payer MEDICARE, SELFPAY ==
[2025-02-20 16:47] LABS: Anion Gap 12 (5-15); BUN 17 mg/dL (4-19); BUN/Creat Ratio 35.0 RATIO (10-20); Calcium,Total 9.1 mg/dL (7.6-11.0); Carbon Dioxide 21.3 mmol/L (21.0-32.0); Chloride 105 mmol/L (98-108); Glucose 114 mg/dL (70-99); Magnesium 2.1 mg/dL (1.5-2.2); Potassium 4.5 mmol/L (3.3-5.1)
== END | disposition home or self-care (01) ==
LOC: POLAB3 13:55
PROVIDERS: PCP Family Medicine Geriatric Medicine; Visit Provider Family Medicine Geriatric Medicine
DX: E87.6 Hypokalemia (principal); E83.42 Hypomagnesemia
CPT/HCPCS: 36415; 80048; 83735

== ENCOUNTER → 2025-03-28 | Outpatient (CLI) | payer MEDICARE, SELFPAY ==
--- NOTE | 2025-03-28 11:06 | ECHOD_ITS ---
Reason For Study Reason For Study: LOCALIZED EDEMA, ARRHYTHMIA Procedure This was a 2D Doppler, Color Flow transthoracic echocardiogram. Exam performed in department. Left Ventricle Normal left ventricle. The left ventricular ejection fraction is 55 %. No regional wall motion abnormalities noted. Right Ventricle Normal RV size. Normal systolic function. Atria Normal left atrium. Normal right atrium. Hypermobile atrial septum. Patent foramen ovale. Mitral Valve There is moderate mitral annular calcification. Mild-Moderate (1-2+) eccentric mitral valve insufficiency. Tricuspid Valve Normal tricuspid valve. Mild (1+) tricuspid valve insufficiency. Pulmonary artery systolic pressure is 32 mmHg. Aortic Valve Trisinus/trileaflet aortic valve. Mild focal aortic valve thickening. Pulmonic Valve Normal pulmonic valve. Great Vessels Normal aortic root. The pulmonary artery is normal size. Inferior vena cava collapse with respiration. Pericardium/Pleural No pericardial effusion. Medication 22 gauge I.V. with prn adaptor inserted into right arm. Performed a rapid injection of agitated mix of 9 cc saline and 1cc air to assess for atrial septal defect. MMode/2D Measurements & Calculations LVIDd: 5.1 cm IVSd: 0.84 cm Ao root diam: 3.2 cm LVIDs: 3.5 cm LVPWd: 0.88 cm RVDd: 3.0 cm FS: 30.9 % LAV(MOD-bp): 67.2 ml LVAd ap4: 25.3 cm2 LVAd ap2: 22.4 cm2 LAV(MOD-bp) Indexed: 34.9 ml/m2 LVLd ap4: 6.3 cm LVLd ap2: 6.8 cm LAV(MOD-sp2): 65.6 ml EDV(MOD-sp4): 82.7 ml EDV(MOD-sp2): 64.2 ml LAV(MOD-sp4): 65.0 ml EDV(sp4-el): 86.2 ml EDV(sp2-el): 62.6 ml LVAs ap4: 14.6 cm2 LVAs ap2: 13.1 cm2 LVLs ap4: 5.2 cm LVLs ap2: 5.6 cm ESV(MOD-sp4): 34.7 ml ESV(MOD-sp2): 25.9 ml ESV(sp4-el): 35.1 ml ESV(sp2-el): 26.1 ml EF(MOD-sp4): 58.1 % EF(MOD-sp2): 59.6 % EF(sp4-el): 59.3 % SV(MOD-sp4): 48.1 ml SV(MOD-sp2): 38.3 ml SV(sp4-el): 51.1 ml SI(MOD-sp4): 25.0 ml/m2 SI(MOD-sp2): 19.9 ml/m2 LA A4 area: 21.6 cm2 LA dimension(2D): 4.7 cm TAPSE: 1.8 cm Time Measurements MV dec time: 0.22 sec Doppler Measurements & Calculations MV E max pablo: 69.5 cm/sec Lat Peak E' Pablo: 8.3 cm/sec Med Peak E' Pablo: 7.6 cm/sec MV A max pablo: 114.0 cm/sec E/E' lat: 8.4 E/E' med: 9.1 MV E/A: 0.61 MV V2 max: 462.2 cm/sec Ao V2 max: 188.1 cm/sec LV V1 max: 65.8 cm/sec MV max P.5 mmHg Ao max P.2 mmHg LV V1 max P.7 mmHg MV V2 mean: 352.7 cm/sec Ao V2 mean: 144.8 cm/sec LV V1 mean P.88 mmHg MV mean P.1 mmHg Ao mean P.0 mmHg LV V1 mean: 44.3 cm/sec MV V2 VTI: 164.1 cm Ao V2 VTI: 41.3 cm LV V1 VTI: 14.4 cm AV (velocity ratio): 0.35 MR max pablo: 459.8 cm/sec PA V2 max: 72.8 cm/sec TR max pablo: 268.9 cm/sec MR max P.6 mmHg PA V2 mean: 55.0 cm/sec TR max P.9 mmHg ECHO/Echo Complete Interpretation Summary Hypermobile atrial septum. Normal left ventricle. The left ventricular ejection fraction is 55 %. Patent foramen ovale. Mild-Moderate (1-2+) eccentric mitral valve insufficiency. There is moderate mitral annular calcification. Ordering Physician: Dale Martinez Referring Physician: Leandro Lua Chi Performed By: Zamzam Estrella RDCS, RVT
--- OUTSIDE RECORDS SUMMARY | 2025-03-28 19:36 | XMS RPT_ITS | CCD ---
Author Organization [facility] CliniSyal Care Team Providers Care Certified Dietary Manager Name Role Phone Capellan, Abelino O'dell Unavailable Unavailabl e Capellan, Abelino O'dell Unavailable Unavailabl e Capellan, Abelino O'dell Unavailable Unavailabl e ANGEL, LUIS E G Unavailable Unavailable ANGEL LUIS E G Unavailable Unavailable KYMBERLY MORRISON Unavailable Unavailable CATHLEEN SALDANA Unavailable Unavailable Dr. Leandro Lua Chi Primary Care Provider Stoney, Dr. Leandro Chakraborty Referring Provider SHON Reyes Attending Provider [phone] Dr. Leandro Lua Chi Primary Care Provider Stoney, Dr. Leandro Chakraborty Referring Provider SHON Reyes Attending Provider Stoney AGUDELO, Dr. Leandro Chakraborty Primary Care Provider Dr. Leandro Lua MD, Chi Attending Provider Dr. Leandro Lua MD, Chi Referring Provider Luis Carlos AGUDELO, Dr. Hare Emergency Provider Dr. Tonya Cortez DO Admit Provider Dr. Tonya Cortez DO Attending Provider Luis Carlos AGUDELO, Dr. Hare Emergency Provider Dr. Tonya Cortez DO Admit Provider Dr. Tonya Cortez DO Attending Provider Dr. Tonya Cortez DO Other Provider Luciana AGUDELO, Dr. Reilly Attending Provider Dr. Tonya Cortez DO Referring Provider Erika AGUDELO, Dr. Haile Louis Attending Provider Erika AGUDELO, Dr. Haile Louis Other Provider Lila AGUDELO, Dr. Crews Other Provider Juan AGUDELO, Dr. Hunter Attending Provider Erika AGUDELO, Dr. Haile Louis Referring Provider Ingris AGUDELO, Dr. Baez Other Provider Stoney AGUDELO, Dr. Leandro Chakraborty Primary Care Provider [phone] Stoney AGUDELO, Dr. Leandro Chakraborty Attending Provider Juan AGUDELO, Dr. Hunter Referring Provider Stoney, Leandro Chi Attending Unavailable Stoney, Leandro Chi Primary Care Unavailable Stoney, Leandro Chi Attending Unavailable Stoney, Leandro Chi Primary Care Unavailable Stoney, Leandro Chi Primary Care Unavailable Haile Davis Attending Unavailable Tonya Cortez Admitting Unavailable Tonya Cortez Consulting Unavailable Hyuni, Prakashman Consulting Unavailable Haile Davis Consulting Unavailable Stoney, Leandro Chi Primary Care Unavailable Manju Martinez Attending Unavailable Manju Martinez Referring Unavailable Stoney, Leandro Chi Primary Care Unavailable Stoney, Leandro Chi Attending Unavailable Stoney, Leandro Chi Referring Unavailable Stoney, Leandro Chi Referring Unavailable Stoney, Leandro Chi Primary Care Unavailable Stoney, Leandro Chi Attending Unavailable Stoney, Leandro Chi Primary Care Unavailable Tonya Cortez Attending Unavailable Tonya Cortez Admitting Unavailable Tonya Cortez Consulting Unavailable Eleonora Sharp Consulting Unavailable Haile Davis Consulting Unavailable Nestor Amado Consulting Unavailable Stoney, Leandro Chi Primary Care Unavailable Manju Martinez Attending Unavailable Manju Martinez Referring Unavailable Stoney, Leandro Chi Primary Care Unavailable Tonya Cortez Admitting Unavailable Tonya Cortez Consulting Unavailable Tonya Cortez Attending Unavailable Eleonora Sharp Consulting Unavailable Haile Davis Consulting Unavailable Nestor Amado Consulting Unavailable Haile Davis Attending Unavailable Stoney, Leandro Chi Attending Unavailable Stoney, Leandro Chi Primary Care Unavailable Stoney, Leandro Chi Primary Care Unavailable Stoney, Leandro Chi Attending Unavailable Stoney, Leandro Chi Referring Unavailable Stoney, Leandro Chi Primary Care Unavailable Stoney, Leandro Chi Attending Unavailable Stoney, Leandro Chi Referring Unavailable Stoney, Leandro Chi Primary Care Unavailable Stoney, Leandro Chi Attending Unavailable Stoney, Leandro Chi Referring Unavailable Stoney, Leandro Chi Primary Care Unavailable Haile Davis Referring Unavailable Manju Martinez Attending Unavailable Stoney, Leandro Chi Primary Care Unavailable Tommie Chowdhury Attending Unavailable Tonya Cortez Referring Unavailable Tonya Cortez Attending Unavailable Stoney, Leandro Chi Attending Unavailable Stoney, Leandro Chi Primary Care Unavailable Stoney, Leandro Chi Primary Care Unavailable Stoney, Leandro Chi Referring Unavailable Manju Martinez Attending Unavailable Stoney, Leandro Chi Referring Unavailable Stoney, Leandro Chi Attending Unavailable Stoney, Leandro Chi Primary Care Unavailable Stoney , Dr. Leandro Chakraborty Primary Care Provider Luis Carlos AGUDELO, Dr. Hare Emergency Provider Diego ULRICH, Dr. Castaneda Admit Provider Dr. Tonya Cortez DO Other Provider Erika AGUDELO, Dr. Haile Louis Attending Provider Erika AGUDELO, Dr. Haile Louis Other Provider Lila AGUDELO, Dr. Crews Other Provider Dr. Tonya Cortez DO Attending Provider Dr. Leandro Lua MD, Chi Attending Provider Stoney AGUDELO, Dr. Leandro Chakraborty Referring Provider Silvio Gonzales Attending Provider Allergies Allergy Classification Reported Allergen(s) Allergy Type Date of Onset Reaction(s) Facility (1 source) amoxicillin / clavulanate; Translations: [AUGMENTIN] Drug Allergy [facility] Repository (20 sources) levoFLOXacin Drug Allergy 1 Diarrhea [facility] (20 sources) Phenylephrine Drug Allergy 1 Other [facility] Comment on above: RAPID HEART BEAT (20 sources) Polymyxin B Drug Allergy 1 Swelling [facility] (5 sources) NEUROXIN Allergy to substance 1 Shortness of breath [facility] Work Phone: (16 sources) Norfloxacin Drug Allergy 2 unknown [facility] (1 source) levoFLOXacin Drug Allergy 5 [facility] Repository (1 source) Norfloxacin Drug Allergy 5 [facility] Repository (1 source) Phenylephrine Drug Allergy 5 [facility] Repository (1 source) polymyxin B Drug allergy (disorder) 5 [facility] Repository Medications Current Medications Medication Drug Class(es) Dates Sig (Normalized) Sig (Original) acetaminophen 500 mg oral tablet (20 sources) Start: 12-07-2024 take 2 tablets by mouth every eight hours Acetaminophen 500 mg Tablet Active 1000 mg PO EVERY 8 HOURS 0 0 December 07, 2024 12:00am Start: 11-25-2024 [...] HOURS NEEDED as needed for Mild Pain (1-3/10) 0 April 02, 2017 12:00am November 25, 2024 11:38am Start: 04-02-2017 take 1000 mg by mout h every eight hours as needed Acetaminophen Active 1000 MG PO EVERY 8 HOURS NEEDED April 02, 2017 12:00am bumetanide 1 mg oral tablet (4 sources) Loop Diuretic Start: 01-26-2025 take 1 tablet by mouth twice daily Bumetanide 1 mg tablet Active 1 mg PO TWICE A DAY January 26, 2025 12:00am calcium carbonate 500 mg chewable tablet (20 sources) Start: 04-24-2022 take 1 tablet by mouth once daily Calcium Carbonate (Calcium 600) 600 mg calcium (1,500 mg) tablet Active 600 mg PO DAILY April 24, 2022 12:00am Start: 04-24-2022 take 1 tablet by douglas twice daily as needed Calcium Carbonate (Tums) [...] 2016 1:00am April 02, 2017 3:45pm Cranberry (10 sources) Non-Standardized Food Allergenic Extract, Non-Standardized Plant Allergenic Extract Start: 11-25-2024 take 1 capsule by mouth once daily Cranberry 500 mg capsule Active 500 mg PO DAILY November 25, 2024 12:00am administer with a meal dorzolamide 20 mg/ml / timolol 5 mg/ml ophthalmic solution (10 sources) Carbonic Anhydrase Inhibitor, beta-Adrenergic Samantha Start: 11-25-2024 Dorzolamide-Timol ol 22.3-6.8 mg/mL drops Active 1 NMA OPHTHALMIC TWICE A DAY November 25, 2024 12:00am estradiol 0.1 mg/ml vaginal cream (4 sources) Estrogen Start: 01-24-2025 Estradiol (Estrace) 0.01 % (0.1 mg/gram) cream Active 1 g VAGINAL 3 TIMES A WEEK January 24, 2025 12:00am fluticasone propionate 0.05 mg/actuat metered dose nasal spray (16 sources) Corticosteroid Start: 04-24-2022 Fluticasone Propionate 50 mcg/actuation spray,suspension Active 2 NMA INTRANASAL DAILY April 24, 2022 12:00am administer into each nostril Start: 04-24-2022 take 1 spray(s) nasa l route once daily Fluticasone Propionate Active 1 SPRAY INTRANASAL DAILY April 24, 2022 12:00am administer into each nostril gabapentin 100 mg oral capsule (4 sources) Anti-epileptic Agent Start: 01-26-2025 take 1 capsule by mouth once daily Gabapentin 100 mg capsule Active 100 mg PO daily January 26, 2025 12:00am 12 hr guaiFENesin 600 mg extended release oral tablet (20 sources) Start: 11-25-2024 take 1 tablet by mouth twice daily as needed for congestion, then [...] 24, 2022 12:00am November 25, 2024 11:49am lidocaine 0.05 mg/mg medicated patch (9 sources) Antiarrhythmic, Amide Local Anesthetic Start: 12-07-2024 Lidocaine 5 % Adhesive Patch,Medicated Active 1 NMA TOPICAL DAILY 15 0 December 07, 2024 12:00am Please contact the information source for Protocol details. loperamide hydrochloride 2 mg oral capsule (9 sources) Opioid Agonist Start: 12-07-2024 take 1 capsule by mouth every four hours as needed for diarrhea Loperamide 2 mg Capsule Active 2 mg PO EVERY 4 HOURS NEEDED as needed for Diarrhea/Loose Stools 0 0 December 07, 2024 12:00am meclizine hydrochloride 25 mg oral tablet (20 sources) Antiemetic Start: 01-26-2025 Meclizine 25 mg tablet Active 12.5 mg PO THREE TIMES A DAY as needed January 26, 2025 2:28pm Start: 01-24-2025 End: 01-26-2025 take 1 tablet by mouth three times daily Meclizine 25 mg tablet Discontinued 25 mg PO THREE TIMES A DAY January 24, 2025 12:00am January 26, 2025 2:32pm Start: 03-18-2017 End: 01-24-2025 take 1 tablet by mouth three times daily as needed for dizziness Meclizine 12.5 MG tablet Discontinued 12.5 mg PO THREE TIMES A DAY as needed for dizziness November 25, 2024 12:00am January 24, 2025 9:03am melatonin 5 mg oral tablet (20 sources) Start: 11-25-2024 take 1 tablet by [...] 12:00am November 25, 2024 11:50am metoprolol tartrate 50 mg oral tablet (20 sources) beta-Adrenergic Samantha Start: 03-05-2025 take 1 tablet by mouth twice daily Metoprolol Tartrate 50 mg tablet Active 50 mg PO TWICE A DAY 60 2 March 05, 2025 4:26pm Start: 12-07-2024 End: 03-05-2025 take 1 tablet by mouth three times daily Metoprolol Tartrate 25 mg Tablet Discontinued 25 mg PO THREE TIMES A DAY 90 2 December 07, 2024 12:00am March 05, 2025 4:27pm Start: 08-24-2016 End: 12-07-2024 take 1 tablet [...] DAILY April 24, 2022 12:00am Multivitamin tablet (12 sources) Start: 04-24-2022 Multivitamin t ablet Active 1 {tbl} PO DAILY April 24, 2022 12:00am Wjsbadg-Tazm-Hjivo-Oreg-Capr yl (3 sources) Start: 04-24-2022 Nwiuxxl-Sehu-O olts-Epkd-Zdqpmd Active CAP PO April 23, 2022 11:00pm Start: 04-24-2022 Qfhwyva-Rdlz-X shvn-Zzpq-Njodvp Active CAP PO April 24, 2022 12:00am Vmijfmla-Qgnh-Shrup-Oreg-Cap ry (1 source) Start: 04-24-2022 Johfglut-Ulst-Iywcc-Oreg-Cap ry Active CAP PO April 24, 2022 12:00am Completed/Discontinued Medications Medication Drug Class(es) Dates Sig (Normalized) Sig (Original) acetaminophen 325 mg / HYDROcodone bitartrate 5 mg oral tablet (20 sources) Opioid Agonist Start: 08-24-2016 End: 04-02-2017 [...] / oxyCODONE hydrochloride 5 mg oral tablet (20 sources) Opioid Agonist Start: 08-24-2016 End: 04-02-2017 [...] mg / clavulanate 125 mg oral tablet (20 sources) Penicillin-class Antibacterial Start: 10-08-2023 End: 10-18-2023 Amoxicillin-Pot Clavulanate 875-125 mg tablet Discontinued 1 {tbl} PO Q12H 20 10 0 October 08, 2023 1:00am October 17, 2023 1:00am October 18, 2023 1:04am Acute sinusitis, unspecified Start: 10-08-2023 End: 03-04-2024 take 1 tablet by mouth every twelve hours Amoxicillin-Pot Clavulanate Discontinued 1 TABLET PO Q12H 20 October 08, 2023 1:00am October 18, 2023 1:04am Start: 04-24-2022 End: 05-04-2022 Amoxicillin-Pot Clavulanate 875-125 mg tablet Discontinued 1 {tbl} PO Q12H 20 10 April 24, 2022 12:00am May 03, 2022 12:00am May 04, 2022 12:03am Acute sinusitis, unspecified Start: 04-24-2022 End: 05-04-2022 take 1 tablet by mouth every twelve hours Amoxicillin-Pot Clavulanate Discontinued 1 TABLET PO Q12H 20 April 24, 2022 12:00am May 04, 2022 12:03am aspirin 81 mg chewable tablet (20 sources) Platelet Aggregation Inhibitor, Nonsteroidal Anti-inflammatory Drug Start: 08-24-2016 End: 04-02-2017 Aspirin 81 MG Tab.Chew Discontinued 81 mg PO August 24, 2016 1:00am April 02, 2017 3:45pm baclofen 10 mg oral tablet (20 sources) gamma-Aminobutyric Acid-ergic Agonist Start: 11-25-2024 End: 01-26-2025 Baclofen 10 mg tablet Discontinued 10 mg PO AT BEDTIME December 07, 2024 2:13pm January 26, 2025 2:32pm MUSCLE SPASM Only take as needed ferrous sulfate 325 mg oral tablet (20 sources) Start: 08-24-2016 End: 04-02-2017 take 1 tablet by mouth once daily Ferrous Sulfate 325 MG tablet Discontinued 325 mg PO DAILY@0800 August 24, 2016 1:00am April 02, 2017 3:45pm hydroCHLOROthiazide 25 mg oral tablet (20 sources) Thiazide Diuretic Start: 01-24-2025 End: 01-26-2025 take 1 tablet by mouth once daily Hydrochlorothiazide 25 mg tablet Discontinued 25 mg PO DAILY January 24, 2025 12:00am January 26, 2025 2:29pm Start: 12-07-2024 End: 01-24-2025 take 1 capsule by mouth once daily Hydrochlorothiazide 12.5 mg Capsule Discontinued 12.5 mg PO DAILY 30 December 07, 2024 12:00am January 24, 2025 9:02am Start: 11-25-2024 End: 12-07-2024 take 1 tablet [...] 3:46pm ketorolac tromethamine 5 mg/ml ophthalmic solution (10 sources) Nonsteroidal Anti-inflammatory Drug, Cyclooxygenase Inhibitor Start: 11-25-2024 End: 01-26-2025 Ketorolac 0.5 % drops Discontinued 1 NMA OPHTHALMIC THREE TIMES A DAY November 25, 2024 12:00am January 26, 2025 2:30pm INSTILL 1 DROP IN THE RIGHT EYE THREE TIMES DAILY FOR 5 DAYS then stop L.Acidoph, Paracasei,B. Lactis (9 sources) Start: 08-24-2016 [...] 24, 2016 1:00am April 02, 2017 3:46pm L.Acidoph,Paracasei,B.Animal is 1 EACH capsule (12 sources) Start: 08-24-2016 End: 04-02-2017 Anne-MarieAcidro,Heidy Borrero.Animal is 1 EACH capsule Discontinued 1 NMA PO NEEDED as needed for ANTBIOTIC TREATMENT August 24, 2016 1:00am April 02, 2017 3:46pm lactulose 667 mg/ml oral solution (20 sources) Osmoti c Laxati ve Start: 03-18-2017 End: 04-02-2017 take 10 g by mouth four times daily Lactulose 10 GM/15 ML Solution Discontinued 10 g PO 4 TIMES DAILY March 18, 2017 12:00am April 02, 2017 3:46pm loratadine 10 mg oral tablet (20 sources) Start: 08-24-2016 End: 04-02-2017 take 1 tablet by mouth once daily Loratadine (Claritin) 10 MG tablet Discontinued 10 mg PO DAILY August 24, 2016 1:00am April 02, 2017 3:46pm Magnesium (16 sources) Start: 04-24-2022 End: 11-25-2024 take 1 [...] MG PO DAILY April 24, 2022 12:00am magnesium oxide 400 mg oral tablet (10 sources) Start: 11-25-2024 End: 01-26-2025 take 1 tablet by mouth once daily Magnesium Oxide 400 mg (241.3 mg magnesium) tablet Discontinued 400 mg PO DAILY November 25, 2024 12:00am January 26, 2025 2:31pm meloxicam 7.5 mg oral tablet (20 sources) Nonsteroidal Anti-inflammatory Drug Start: 08-24-2016 End: 04-02-2017 take 1 tablet by mouth once daily Meloxicam (Mobic) 7.5 MG tablet Discontinued 7.5 mg PO DAILY August 24, 2016 1:00am April 02, 2017 3:46pm PAIN menthol 0.0044 mg/mg / zinc oxide 0.2 mg/mg topical ointment (20 sources) Start: 04-02-2017 End: 04-24-2022 Menthol-Zinc Oxide (Calmoseptine) 1 APPLIC ointment Discontinued 1 NMA TOPICAL 0600,2200 1 0 April 02, 2017 12:00am April 24, 2022 12:55pm Start: 04-02-2017 End: 04-24-2022 Menthol-Zinc Oxide (Calmosep guillaume) 1 APPLIC ointment Discontinued 1 APPLIC TOPICAL 0600,2200 1 April 02, 2017 12:00am April 24, 2022 12:55pm naproxen 250 mg oral tablet (10 sources) Nonsteroidal Anti-inflammatory Drug Start: 11-25-2024 End: 12-07-2024 take 1 tablet by mouth twice daily Naproxen 250 mg tablet Discontinued 250 mg PO TWICE A DAY November 25, 2024 12:00am December 07, 2024 2:11pm nystatin 100 unt/mg topical powder (20 sources) Polyene Antifungal Start: 04-02-2017 End: 04-24-2022 Nystatin (Nyamyc) 1 APPLIC bottle Discontinued 1 NMA TOPICAL 0600,2200 1 0 April 02, 2017 12:00am April 24, 2022 12:55pm Start: 04-02-2017 End: 04-24-2022 Nystatin (Nyamyc) 1 APPLIC b ottle Discontinued 1 APPLIC TOPICAL 0600,2200 1 April 02, 2017 12:00am April 24, 2022 12:55pm ondansetron 4 mg disintegrating oral tablet (20 sources) Serotonin-3 Receptor Antagonist Start: 12-07-2024 End: 01-26-2025 take 1 tablet by mouth every eight hours as needed for nausea and vomiting Ondansetron 4 mg tablet,disintegrating Discontinued 4 mg PO Q8H as needed for nausea and vomiting 9 December 07, 2024 12:00am January 26, 2025 2:31pm Start: 04-02-2017 End: 04-24-2022 take 1 tablet by mouth every eight hours as needed for nausea Ondansetron 4 MG tablet Discontinued 4 mg PO EVERY 8 HOURS NEEDED as needed for NAUSEA 90 0 April 02, 2017 12:00am April 24, 2022 12:55pm pantoprazole 40 mg delayed release oral tablet (20 sources) Proton Pump Inhibitor Start: 11-25-2024 End: 01-26-2025 take 1 tablet by mouth once daily Pantoprazole 40 mg tablet,delayed release (DR/EC) Discontinued 40 mg PO DAILY November 25, 2024 12:00am January 26, 2025 2:31pm Start: 04-02-2017 End: 04-24-2022 take 1 tablet by mouth once daily Pantoprazole 40 MG tablet Discontinued 40 mg PO DAILY 30 0 April 02, 2017 12:00am April 24, 2022 12:55pm polyethylene glycol 3350 01863 mg powder for oral solution (20 sources) Osmotic Laxative Start: 04-02-2017 End: 04-24-2022 Polyethylene Glycol 3350 17 GM packet Discontinued 17 g PO Q48H 30 0 April 02, 2017 12:00am April 24, 2022 12:55pm potassium chloride 20 meq extended release oral tablet (16 sources) Start: 04-24-2022 End: 11-25-2024 Potassium Chloride 20 mEq tablet extended release Discontinued 20 meq PO April 24, 2022 12:00am November 25, 2024 11:44am predniSONE 10 mg oral tablet (20 sources) Start: 11-25-2024 End: 12-07-2024 Prednisone 10 [...] mg tablet Discontinued 10 mg PO daily 28 10 0 October 08, 2023 1:00am October 17, 2023 1:00am October 18, 2023 1:04am Unspecified contact dermatitis, unspecified cause Take 4 tabs once daily days 1-3, 3 tabs once daily days 4-6, 2 tabs once daily days 7-9 and 1 tab once day 10. sulfamethoxazole 800 mg / trimethoprim 160 mg oral tablet (9 sources) Dihydrofolate Reductase Inhibitor Antibacterial, Sulfonamide Antimicrobial Start: 12-07-2024 End: 01-24-2025 Sulfamethoxazole-Trimethopri m (Bactrim Ds) 800-160 mg tablet Discontinued 1 {tbl} PO TWICE A DAY 4 0 December 07, 2024 12:00am January 24, 2025 9:05am traMADol hydrochloride 50 mg oral tablet (20 sources) Opioid Agonist Start: 03-18-2017 End: 04-24-2022 take 1 tablet by mouth every six hours as needed for pain Tramadol 50 MG tablet Discontinued 50 mg PO EVERY 6 HOURS NEEDED as needed for Pain 60 0 April 02, 2017 3:46pm April 24, 2022 12:55pm Kgrevccl-Iqft-Ujrq l-Pqaw-Dcjds 100 mg-150 mg- 50 mg-150 mg capsule (12 sources) Start: 04-24-2022 End: 11-25-2024 Ngrqfomb-Ahzd-Rnbdc-Oreg-Cap ry 100 mg-150 mg- 50 mg-150 mg capsule Discontinued NMA PO April 24, 2022 12:00am November 25, 2024 11:44am Start: 04-24-2022 Turmeric-Ging- Rqhdt-Wemc-Fwepr 100 mg-150 mg- 50 mg-150 mg capsule Active NMA PO April 24, 2022 12:00am Problems Active Problems Problem Classification Problem Date Documented Da te Episodic/Chronic Bacterial infection; unspecified site (20 sources) Infection due to ESBL Escherichia coli; Translations: [Other bacterial infections of unspecified site] Onset: 5 12-05-2024 Episodic Cardiac dysrhythmias (7 sources) Supraventricular tachycardia; Translations: [Supraventricular tachycardia] 01-26-2025 Chronic Cardiac dysrhythmias (2 sources) Palpitations; Translations: [Palpitations] Onset: Episodic Conditions associated with dizziness or vertigo (20 sources) Dizziness and giddiness; Translations: [Other peripheral vertigo, unspecified ear] Onset: 6 02-26-2021 Episodic Conditions associated with dizziness or vertigo (1 source) Conditions associated with dizziness or vertigo Onset: 7 Congestive heart failure; nonhypertensive (1 source) Heart failure, unspecified; Translations: [Heart failure, unspecified] Onset: 5 Chronic E Codes: Fall (20 sources) Fall; Translations: [Unspecified fall, initial encounter] 03-18-2017 Episodic Esophageal disorders (20 sources) Gastroesophageal reflux disease; Translations: [Gastro-esophageal reflux disease without esophagitis] 02-26-2021 Chronic Essential hypertension (20 sources) Essential (primary) hypertension; Translations: [Hypertensive disorder] Onset: 6 02-26-2021 Chronic Essential hypertension (1 source) Essential hypertension Onset: 7 Fluid and electrolyte disorders (1 source) Hypokalemia; Translations: [Hypokalemia] Onset: 5 Episodic Headache, including migraine (2 sources) Headache, including migraine Onset: 7 Heart valve disorders (1 source) Nonrheumatic mitral (valve) prolapse; Translations: [NONRHEUMATIC MITRAL VALV] Onset: 6 Chronic Hemorrhoids (16 sources) Hemorrhoids; Translations: [Unspecified hemorrhoids] 04-24-2022 Episodic Malignant neoplasm without specification of site (16 sources) Malignant neoplastic disease; Translations: [Malignant (primary) neoplasm, unspecified] 04-24-2022 Chronic Occlusion or stenosis of precerebral arteries (1 source) Occlusion and stenosis of bilateral carotid arteries; Translations: [OCCLUSION T STENOS MORGAN] Onset: 6 Chronic Osteoarthritis (16 sources) Arthritis; Translations: [Unspecified osteoarthritis, unspecified site] 04-24-2022 Chronic Other and ill-defined cerebrovascular disease (1 source) Other cerebrovascular disease; Translations: [OTHER CEREBROVASCULAR DI] Onset: 6 Chronic Other bone disease and musculoskeletal deformities (18 sources) Disorder of musculoskeletal system; Translations: [Disorder of bone, unspecified] 12-15-2024 Episodic Other connective tissue disease (1 source) Presence of right artificial shoulder joint; Translations: [PRESENCE RT ARTIFICIAL S] Onset: 6 Chronic Other connective tissue disease (16 sources) History of operative procedure on shoulder; Translations: [Presence of unspecified artificial shoulder joint] 04-24-2022 Chronic Other fractures (20 sources) Compression fracture of lumbar spine; Translations: [Wedge compression fracture of first lumbar vertebra, initial encounter for closed fracture] 02-26-2021 Episodic Other fractures (18 sources) Fracture of twelfth thoracic vertebra; Translations: [Wedge compression fracture of T11-T12 vertebra, initial encounter for closed fracture] 12-15-2024 Episodic Other fractures (18 sources) Collapse of lumbar vertebra; Translations: [Collapsed vertebra, not elsewhere classified, lumbar region, initial encounter for fracture] 12-15-2024 Episodic Other gastrointestinal disorders (20 sources) Constipation; Translations: [Constipation, unspecified] 02-26-2021 Episodic Other gastrointestinal disorders (16 sources) History of bypass of stomach; Translations: [Bariatric surgery status] 04-24-2022 Episodic Other injuries and conditions due to external causes (20 sources) Injury of head; Translations: [Unspecified injury of head, initial encounter] 03-18-2017 Episodic Other lower respiratory disease (1 source) Shortness of breath; Translations: [Shortness of breath] Onset: 5 Episodic Other upper respiratory infections (20 sources) Acute sinusitis, unspecified; Translations: [Acute sinusitis] Onset: 6 Episodic Pathological fracture (19 sources) Pathological fracture due to osteoporosis; Translations: [Age-related osteoporosis with current pathological fracture, unspecified site, initial encounter for fracture] Onset: 5 12-15-2024 Episodic Residual codes; unclassified (6 sources) Bilateral lower limb edema; Translations: [Localized edema] 01-26-2025 Episodic Residual codes; unclassified (2 sources) Localized edema; Translations: [Localized edema] Onset: 5 Episodic Spondylosis; intervertebral disc disorders; other back problems (20 sources) Degeneration of lumbar intervertebral disc; Translations: [...] unspecified site / M19.90(ICD-10) Onset: 7 Unclassified (9 sources) Please call tomorrow to set up an appointment Unclassified (1 source) Supraventricular tachycardia, unspecified; Translations: [Supraventricular tachycardia, unspecified] Onset: 5 Unclassified (1 source) Low back pain, unspecified; [...] [PERSONAL HISTORY OF COLO] Onset: 03-27-2016 Episodic Other bone disease and musculoskeletal deformities (1 source) Disorder of bone, unspecified; Translations: [Disorder of bone, unspecified] Onset: 12-07-2024 Episodic Other fractures (1 source) Wedge compression fracture of first lumbar vertebra, initial encounter for closed fracture; Translations: [Wedge compression fracture of first lumbar vertebra, initial encounter for closed fracture] Onset: 12-07-2024 Episodic Other fractures (1 source) Wedge compression fracture of T11-T12 vertebra, initial encounter for closed fracture; Translations: [Wedge compression fracture of T11-T12 vertebra, initial encounter for closed fracture] Onset: 12-07-2024 Episodic Other fractures (1 source) Collapsed vertebra, not elsewhere classified, lumbar region, initial encounter for fracture; Translations: [Collapsed vertebra, not elsewhere classified, lumbar region, initial encounter for fracture] Onset: 12-07-2024 Episodic Other non-traumatic joint disorders (1 source) Joint disorder, unspecified; Translations: [Joint disorder, unspecified] Onset: 12-07-2024 Episodic Residual codes; unclassified (1 source) Chills (without fever); Translations: [Chills (without fever)] Onset: 10-31-2024 Episodic Results Test Name Value Interpretation Reference Range Facility Anion gap in Serum or Plasma Ordered By: Leandro Lua on 02-20-2025 Anion gap [Moles/Vol] 12 mmol/L 5-15 [facility] BUN/creatinine ratioOrdered By: Leandro Lua on 02-20-2025 Urea nitrogen/Creatinine [Mass ratio] 35.0 mg/mg High - [facility] Basic Metabolic Profile (BMP )on 02-20-2025 BUN/CRE 35.0 RATIO High 06-04 [facility] Comment on above: Performed By: #### L 500.4050, L100.0100, L506.1000, L501.9520, L500.4100 #### [facility] Laboratory [address] [place], [address] Calcium [Mass/Vol] 9.1 mg/dL Normal 7.6-11.0 [facility] Comment on above: Performed By: #### L 500.4050, L100.0100, L506.1000, L501.9520, L500.4100 #### [facility] [address] [place], [address] Chloride [Moles/Vol] 105 mmol/L Normal 98-[address] [facility] Comment on above: Performed By: #### L 500.4050, L100.0100, L506.1000, L501.9520, L500.4100 #### [facility] [address] [place], [address] CO2 [Moles/Vol] 21.3 mmol/L Normal 21.0-32.0 [facility] Comment on above: Performed By: #### L 500.4050, L100.0100, L506.1000, L501.9520, L500.4100 #### [facility] [address] [place], [address] Creatinine [Mass/Vol] 0.49 mg/dL Low 0.70-1.20 [facility] Comment on above: Performed By: #### L 500.4050, L100.0100, L506.1000, L501.9520, L500.4100 #### [facility] [address] [place], [address] GAP 12 Normal 5-15 [facility] Comment on above: Performed By: #### L 500.4050, L100.0100, L506.1000, L501.9520, L500.4100 #### [facility] [address] [place], [address] GFR/1.73 sq M.predicted among non-blacks MDRD (S/P/Bld) [Vol rate/Area] 93 mL/min/{1.73_m2} Normal >60 [facility] Comment on above: Result Comment: mL/m in/1.73m2 CKD-EPI Creatinine Equation (2020) Performed By: #### L 500.4050, L100.0100, L506.1000, L501.9520, L500.4100 #### [facility] [address] [place], [address] Glucose [Mass/Vol] 114 mg/dL High 70-99 [facility] Comment on above: Performed By: #### L 500.4050, L100.0100, L506.1000, L501.9520, L500.4100 #### [facility] [address] [place], [address] Potassium [Moles/Vol] 4.5 mmol/L Normal 3.3-5.1 [facility] Comment on above: Performed By: #### L 500.4050, L100.0100, L506.1000, L501.9520, L500.4100 #### [facility] [address] [place], [address] Sodium [Moles/Vol] 139 mmol/L Normal 133-145 [facility] Comment on above: Performed By: #### L 500.4050, L100.0100, L506.1000, L501.9520, L500.4100 #### [facility] [address] [place], [address] Urea nitrogen [Mass/Vol] 17 mg/dL Normal 4-19 [facility] Comment on above: Performed By: #### L 500.4050, L100.0100, L506.1000, L501.9520, L500.4100 #### [facility] [address] [place], [address] Carbon dioxide, total [Moles /volume] in Central venous bloodOrdered By: Leandro Lua on 02-20-2025 CO2 [Moles/Vol] 21.3 mmol/L 21.0-32.0 [facility] Chloride assayOrdered By: Scottie Lua on 02-20-2025 Chloride [Moles/Vol] 105 mmol/L 98-[address] [facility] Glomerular filtration rate ( GFR) estimation/1.73 sq m using serum, plasma, or whole bOrdered By: Leandro Lua on 02-20-2025 GFR/1.73 sq M.predicted among non-blacks MDRD (S/P/Bld) [Vol rate/Area] 93 mL/min/{1.73_m2} >60 [facility] Comment on above: mL/min/1.73m2 CKD-EP I Creatinine Equation (2020) Magnesiumon 02-20-2025 Magnesium [Mass/Vol] 2.1 mg/dL Normal 1.5-2.[address] [facility] Comment on above: Performed By: #### L 500.4050, L100.0100, L506.1000, L501.9520, L500.4100 #### [facility] [address] [place], [address] Magnesium measurement (mass/ volume)Ordered By: Leandro Lua on 02-20-2025 Magnesium (Unsp spec) [Mass/Vol] 2.1 mg/dL 1.5-2.2 [facility] Potassium measurement (mass/ volume)Ordered By: Leandro Lua on 02-20-2025 Potassium (Unsp spec) [Mass/Vol] 4.5 mmol/L 3.3-5.1 [facility] Serum creatinine measurement (mass/volume)Ordered By: Leandro Lua on 02-20-2025 Creatinine [Mass/Vol] 0.49 mg/dL Low 0.70-1.20 [facility] Serum glucose measurement (m ass/volume)Ordered By: Leandro Stoney on 02-20-2025 Glucose [Mass/Vol] 114 mg/dL High 70-99 [facility] Serum or plasma calcium ashley urement (mass/volume)Ordered By: Leandro Chungok on 02-20-2025 Calcium [Mass/Vol] 9.1 mg/dL 7.6-11.0 [facility] Serum or plasma urea nitroge n measurement (mass/volume)Ordered By: Leandro Lua on 02-20-2025 Urea nitrogen [Mass/Vol] 17 mg/dL 4-19 [facility] Sodium levelOrdered By: Leandro Lua on 02-20-2025 Sodium [Moles/Vol] 139 mmol/L 133-145 [facility] Cardiology Visit Reporton Cardiology Visit Report [facility] [place], [place] [address] OFFICE VISIT Date of Service: 01/26/25 MR#: [id number] Acct: [id number] Name: TORSTEN COLINDRES Rep #: [id number] : 1940 Provider: Dr. Manju roberts MD Age/Sex: 84/F [facility] [facility] Status: Signed HPI HPI History of Present Illness Details: Patient is a very pleasant 84-year-old white female who comes in today for a new patient visit for SVT. She is accompanied by her daughter. Patient was hospitalized back in November 2024 for back surgery due to progressive loss of use of her legs. She underwent surgical intervention and her leg function has markedly recovered she is now ambulatory with a walker. During her surgical intervention hospitalization the patient developed a tachyarrhythmia. An ECG done November 29, 2024 showed normal sinus rhythm that then progressed into what appears to be a paroxysmal atrial tachycardia and then slowly slowed down back into sinus tach. There were no significant ST or T wave changes. It does appear that this is a paroxysmal atrial tachycardia. It is not atrial fibrillation. The patient has a history of having palpitations and just feeling not quite right. It is hard to tell if her symptoms are correlated with any type of arrhythmia. The patient historically has been on metoprolol succinate 25 mg daily for many years due to mitral valve prolapse. She denies any syncope or near syncope denies any lightheaded spells. The patient did have significant lower extremity edema that appears to be lymphedema. She is due to undergo compression treatments in the near future by her home health care. The patient had a recent chest x-ray that showed a normal cardiac silhouette with no evidence of heart failure. She has not had an echocardiogram. She has not had an event monitor either. She did have lower extremity duplex done which showed no evidence of DVTs. The patient denies any prior cardiac history other than this mitral valve prolapse that was diagnosed many years ago. The patient does report that her lower extremity edema is markedly improved when she first gets up in the morning if she elevates her legs in the evening. Intake Vital Signs 12/06/24 17:34 01/26/25 14:19 Height 5 ft 5 in 5 ft 5 in Weight: 188 lb BMI 31.2 BP 106/63 Blood Pressure Location Lt brachial Position Sitting Respiration 16 Pulse 72 Pulse Source Monitor Intake Visit Reasons: [employer] Required: No Accompanied by: Granddaughter Is patient in pain?: No Allergies norfloxacin (From Noroxin) Allergy (Verified 01/26/25 14:26) unknown polymyxin B Allergy (Verified 01/26/25 14:26) Swelling levofloxacin (From Levaquin) Adverse Reaction (Verified 01/26/25 14:26) Diarrhea phenylephrine (From Sudafed PE) Adverse Reaction (Verified 01/26/25 14:26) Other Medications ???Medication ???Instructions ???Recorded ???Confirmed ???Type calcium carbonate (Calcium 600) 600 mg PO DAILY 04/24/22 01/26/25 History calcium carbonate (Tums) 200 mg PO BID PRN dyspepsia 01/26/25 History fluticasone propionate 50 2 spray intranasal DAILY 04/24/22 01/26/25 History mcg/actuation nasal spray,suspension multivitamin 1 tab PO DAILY 04/24/22 01/26/25 H istory acetaminophen 650 mg 650 mg PO Q8H PRN pain 11/25/24 History tablet,extended release (Arthritis Pain Relief (acetaminophen) ER) Held on 12/07/24. Instructions: Until done taking 1000 mg 3 times daily cholecalciferol (vitamin D3) 25 25 mcg PO DAILY 11/25/24 01/26/25 History mcg (1,000 unit) capsule (Vitamin D3) cranberry 500 mg capsule 500 mg PO DAILY 11/25/24 01/26/25 History dorzolamide 22.3 mg-timolol 6.8 1 drp ophthalmic (eye) BID 5 01/26/25 History mg/mL eye drops guaifenesin 600 mg tablet, 600 mg PO BID PRN congestion 11/2501/26/25 History extended release 12 hr (Mucinex) melatonin 5 mg tablet 5 mg PO QHS PRN sleep 11/25/24 History acetaminophen 500 mg tablet 1,000 mg (2 x 500 mg) PO Q8 #0 tab s 12/07/24 01/26/25 Rx lidocaine 5 % topical patch 1 patch topical DAILY #15 ea 12/0701/26/25 Rx loperamide 2 mg capsule 2 mg PO Q4H PRN PRN Diarrhea/Loose 12/07/24 01/26/25 Rx Stools #0 caps metoprolol tartrate 25 mg tablet 25 mg PO TID #90 tabs 12/07/24 Rx estradiol 0.01% (0.1 mg/gram) 1 g vaginal 3XW 01/24/25 01/26/25 History vaginal cream (Estrace) baclofen 10 mg tablet 10 mg PO QHS PRN MUSCLE SPASM 01/14 11/07 History bumetanide 1 mg tablet 1 mg PO BID 01/26/25 01/26/25 Hist ory gabapentin 100 mg capsule 100 mg PO QDAY 01/26/25 01/26/25 H istory meclizine 25 mg tablet 12.5 mg PO TID PRN 01/26/25 History Have you fallen in the past year? (more content not included)... Normal [facility] Absolute lymphocyte countOrd ered By: Leandro Lua on 01-17-2025 Lymphocytes Auto (Unsp spec) [#/Vol] 1.08 10*3/uL 0.83-4.51 [facility] Absolute neutrophil countOrd ered By: Leandro Lua on 01-17-2025 Neutrophils (Bld) [#/Vol] 3.9 10*3/uL 2.0-7.7 [facility] Anion gap in Serum or Plasma Ordered By: Leandro Lua on 01-17-2025 Anion gap [Moles/Vol] 13 mmol/L 5-15 [facility] Automated lymphocyte count a s percentage of total leukocytesOrdered By: Leandro Lua on 01-17-2025 Lymphocytes/100 WBC Auto (Unsp spec) 19.2 % 19-41 [facility] BUN/creatinine ratioOrdered By: Leandro Lua on 01-17-2025 Urea nitrogen/Creatinine [Mass ratio] 37.8 mg/mg High 10-20 [facility] Basophil percentageOrdered B y: Leandro Lua on 01-17-2025 Basophils/100 WBC (Bld) 0.5 % 0-1 [facility] Bilirubin, totalOrdered By: Leandro Lua on 01-17-2025 Bilirubin [Mass/Vol] 0.29 mg/dL 0.00-1.[address] [facility] Blood manual differential co mment interpretation (narrative result)Ordered By: Leandro Lua on 01-17-2025 Manual differential comment Lenny (Bld) [Interp] SCANNED [facility] Blood polychromasia detectio n by light microscopyOrdered By: Leandro Lua on 01-17-2025 Polychromasia LM Ql (Bld) 1+ [facility] CBC W/Diff, Automatedon POLYCHROMASIA 1+ Normal [facility] Comment on above: Performed By: #### L 500.4050, L100.0100, L506.1000, L501.9520, L500.4100 #### [facility] Laboratory [address] [place], [address] Anisocytosis Ql (Bld) 1+ Normal [facility] Comment on above: Performed By: #### L 500.4050, L100.0100, L506.1000, L501.9520, L500.4100 #### [facility] [address] [place], [address] PLT EST ADEQUATE Normal ADEQ [facility] Comment on above: Performed By: #### L 500.4050, L100.0100, L506.1000, L501.9520, L500.4100 #### [facility] [address] [place], [address] SMEAR COMMENT SCANNED Normal [facility] Comment on above: Performed By: #### L 500.4050, L100.0100, L506.1000, L501.9520, L500.4100 #### [facility] [address] [place], [address] Carbon dioxide, total [Moles /volume] in Central venous bloodOrdered By: Leandro Lua on 01-17-2025 CO2 [Moles/Vol] 23.4 mmol/L 21.0-32.0 [facility] Chloride assayOrdered By: Scottie Lua on 01-17-2025 Chloride [Moles/Vol] 102 mmol/L 98-[address] [facility] Comprehensive Metabolic Prof ilon 01-17-2025 Albumin [Mass/Vol] 3.6 g/dL Normal 3.4-4.8 [facility] Comment on above: Performed By: #### L 500.4050, L100.0100, L506.1000, L501.9520, L500.4100 #### [facility] [address] [place], [address] Albumin/Globulin [Mass ratio] 1.5 {ratio} Normal 0.9-2.4 [facility] Comment on above: Performed By: #### L 500.4050, L100.0100, L506.1000, L501.9520, L500.4100 #### [facility] [address] [place], [address] ALK PHOS 88 U/L Normal 35-104 [facility] Comment on above: Performed By: #### L 500.4050, L100.0100, L506.1000, L501.9520, L500.4100 #### [facility] [address] [place], [address] ALT [Catalytic activity/Vol] 12 U/L Normal <=34 [facility] Comment on above: Performed By: #### L 500.4050, L100.0100, L506.1000, L501.9520, L500.4100 #### [facility] [address] [place], [address] AST [Catalytic activity/Vol] 20 U/L Normal <=31 [facility] Comment on above: Performed By: #### L 500.4050, L100.0100, L506.1000, L501.9520, L500.4100 #### [facility] [address] [place], [address] Bilirubin [Mass/Vol] 0.29 mg/dL Normal 0.00-1.[address] [facility] Comment on above: Performed By: #### L 500.4050, L100.0100, L506.1000, L501.9520, L500.4100 #### [facility] [address] [place], [address] BUN/CRE 37.8 RATIO High 10-20 [facility] Comment on above: Performed By: #### L 500.4050, L100.0100, L506.1000, L501.9520, L500.4100 #### [facility] [address] [place], [address] Calcium [Mass/Vol] 8.7 mg/dL Normal 7.6-11.0 [facility] Comment on above: Performed By: #### L 500.4050, L100.0100, L506.1000, L501.9520, L500.4100 #### [facility] [address] [place], [address] Chloride [Moles/Vol] 102 mmol/L Normal 98-[address] [facility] Comment on above: Performed By: #### L 500.4050, L100.0100, L506.1000, L501.9520, L500.4100 #### [facility] [address] [place], [address] CO2 [Moles/Vol] 23.4 mmol/L Normal 21.0-32.0 [facility] Comment on above: Performed By: #### L 500.4050, L100.0100, L506.1000, L501.9520, L500.4100 #### [facility] [address] [place], [address] Creatinine [Mass/Vol] 0.49 mg/dL Low 0.70-1.20 [facility] Comment on above: Performed By: #### L 500.4050, L100.0100, L506.1000, L501.9520, L500.4100 #### [facility] [address] [place], [address] GAP 13 Normal 5-15 [facility] Comment on above: Performed By: #### L 500.4050, L100.0100, L506.1000, L501.9520, L500.4100 #### [facility] [address] [place], [address] GFR/1.73 sq M.predicted among non-blacks MDRD (S/P/Bld) [Vol rate/Area] 93 mL/min/{1.73_m2} Normal >60 [facility] Comment on above: Result Comment: mL/m in/1.73m2 CKD-EPI Creatinine Equation (2020) Performed By: #### L 500.4050, L100.0100, L506.1000, L501.9520, L500.4100 #### [facility] [address] [place], [address] Globulin (S) [Mass/Vol] 2.5 g/dL Normal 2.2-4.2 [facility] Comment on above: Performed By: #### L 500.4050, L100.0100, L506.1000, L501.9520, L500.4100 #### [facility] [address] [place], [address] Glucose [Mass/Vol] 112 mg/dL High 70-99 [facility] Comment on above: Performed By: #### L 500.4050, L100.0100, L506.1000, L501.9520, L500.4100 #### [facility] [address] [place], [address] Potassium [Moles/Vol] 3.7 mmol/L Normal 3.3-5.1 [facility] Comment on above: Performed By: #### L 500.4050, L100.0100, L506.1000, L501.9520, L500.4100 #### [facility] [address] [place], [address] Sodium [Moles/Vol] 139 mmol/L Normal 133-145 [facility] Comment on above: Performed By: #### L 500.4050, L100.0100, L506.1000, L501.9520, L500.4100 #### [facility] [address] [place], [address] T PROT 6.1 g/dL Normal 5.9-8.4 [facility] Comment on above: Performed By: #### L 500.4050, L100.0100, L506.1000, L501.9520, L500.4100 #### [facility] [address] [place], [address] Urea nitrogen [Mass/Vol] 19 mg/dL Normal 4-19 [facility] Comment on above: Performed By: #### L 500.4050, L100.0100, L506.1000, L501.9520, L500.4100 #### [facility] [address] [place], [address] Eosinophil percentageOrdered By: Leandro Lua on 01-17-2025 Eosinophils/100 WBC (Bld) 2.0 % 0-5 [facility] Erythrocyte distribution wid th ratioOrdered By: [facility] on 01-17-2025 Erythrocyte distribution width (RBC) [Ratio] 22.4 % High 11.6-14.6 [facility] Erythrocyte distribution wid th standard deviationOrdered By: Leandro Stoney on 01-17-2025 Erythrocyte distribution width (RBC) [Ratio] 70.4 fl High 35.1-43.9 [facility] Glomerular filtration rate ( GFR) estimation/1.73 sq m using serum, plasma, or whole bOrdered By: Leandro Lua on 01-17-2025 GFR/1.73 sq M.predicted among non-blacks MDRD (S/P/Bld) [Vol rate/Area] 93 mL/min/{1.73_m2} >60 [facility] Comment on above: mL/min/1.73m2 CKD-EP I Creatinine Equation (2020) Hematocrit Auto (Bld) [Volum e fraction]Ordered By: Leandro Lua 01-17-2025 Hematocrit (Bld) [Volume fraction] 34.5 % Low 37-47 [facility] Hemoglobin measurementOrdere d By: Leandro Lua on 01-17-2025 Hemoglobin (Bld) [Mass/Vol] 11.0 g/dL Low 12.0-15.0 [facility] Immature granulocytes/100 WB C Auto (Bld)Ordered By: Leandro Lua 01-17-2025 Immature granulocytes/100 WBC (Bld) 0.400 % 0.0-0.9 [facility] Comment on above: IG% - Immature Granu locytes (promyelocytes, myelocytes and metamyelocytes) > 1% indicates that a LEFT SHIFT is Present. Laboratory - Chemistry and C hemistry - challengeOrdered By: Leandro Lua on 01-17-2025 AST [Catalytic activity/Vol] 20 U/L <32 [facility] Laboratory - Hematology and Cell countsOrdered By: Leandro Lua on 01-17-2025 Anisocytosis Ql (Bld) 1+ [facility] MCV (mean corpuscular volume ) determinationOrdered By: Leandro Lua on 01-17-2025 MCV (RBC) [Entitic vol] 86.7 fL 81-99 [facility] Magnesiumon 01-17-2025 Magnesium [Mass/Vol] 2.0 mg/dL Normal 1.5-2.[address] [facility] Comment on above: Performed By: #### L 500.4050, L100.0100, L506.1000, L501.9520, L500.4100 #### [facility] [address] [place], [address] Magnesium measurement (mass/ volume)Ordered By: Leandro Lua on 01-17-2025 Magnesium (Unsp spec) [Mass/Vol] 2.0 mg/dL 1.5-2.2 [facility] Mean corpuscular hemoglobin (MCH) determinationOrdered By: Leandro Lua on 01-17-2025 MCH (RBC) [Entitic mass] 27.6 pg 27.0-32.0 [facility] Mean corpuscular hemoglobin concentration (MCHC) determinationOrdered By: Leandro Lua on 01-17-2025 MCHC (RBC) [Mass/Vol] 31.9 g/dL Low 32-36 [facility] Mean platelet volume determi nationOrdered By: Leandro Lua on 01-17-2025 Platelet mean volume (Bld) [Entitic vol] 9.6 fL 6.2-12.0 [facility] Monocyte percentageOrdered B y: Leandro Lua on 01-17-2025 Monocytes/100 WBC (Bld) 8.5 % 0-10 [facility] Neutrophil percentageOrdered By: Leandro Lua on 01-17-2025 Neutrophils/100 WBC (Bld) 69.4 % 47-70 [facility] Nucleated red blood cell per centageOrdered By: Leandro Lua on 06-04-2025 Nucleated RBC/100 WBC (Bld) [Ratio] 0 % 0-5 [facility] Platelet countOrdered By: Scottie Lua on 01-17-2025 Platelets (Bld) [#/Vol] 236 10*3/uL 150-450 [facility] Platelet estimateOrdered By: Leandro Lua on 01-17-2025 Platelets LM Ql (Bld) ADEQUATE ADEQ [facility] Potassium measurement (mass/ volume)Ordered By: Leandro Lua on 01-17-2025 Potassium (Unsp spec) [Mass/Vol] 3.7 mmol/L 3.3-5.1 [facility] RBC Auto (Bld) [#/Vol]Ordere d By: Leandro Lua on 01-17-2025 RBC (Bld) [#/Vol] 3.98 10*6/uL Low 4.2-5.4 [facility] Serum creatinine measurement (mass/volume)Ordered By: Leandro Lua on 01-17-2025 Creatinine [Mass/Vol] 0.49 mg/dL Low 0.70-1.20 [facility] Serum globulin measurementOr dered By: Leanrdo Lua 01-17-2025 Globulin (S) [Mass/Vol] 2.5 g/dL 2.2-4.2 [facility] Serum glucose measurement (m ass/volume)Ordered By: Leandro Lua on 01-17-2025 Glucose [Mass/Vol] 112 mg/dL High 70-99 [facility] Serum or plasma alanine zapata otransferase (ALT) measurementOrdered By: Leandro Lua 01-17-2025 ALT [Catalytic activity/Vol] 12 U/L <35 [facility] Serum or plasma albumin ashley urement (mass/volume)Ordered By: Leandro Lua 01-17-2025 Albumin [Mass/Vol] 3.6 g/dL 3.4-4.8 [facility] Serum or plasma albumin/glob ulin mass ratioOrdered By: Leandro Lua 01-17-2025 Albumin/Globulin [Mass ratio] 1.5 {ratio} 0.9-2.4 [facility] Serum or plasma alkaline isaiah sphatase measurementOrdered By: Leandro Lua 01-17-2025 ALP [Catalytic activity/Vol] 88 U/L 35-104 [facility] Serum or plasma calcium ashley urement (mass/volume)Ordered By: Leandro Lua on 01-17-2025 Calcium [Mass/Vol] 8.7 mg/dL 7.6-11.0 [facility] Serum or plasma urea nitroge n measurement (mass/volume)Ordered By: Leandro Lua on 01-17-2025 Urea nitrogen [Mass/Vol] 19 mg/dL 4-19 [facility] Sodium levelOrdered By: Leandro Lua on 01-17-2025 Sodium [Moles/Vol] 139 mmol/L 133-145 [facility] Total proteinOrdered By: Leandro Stoney on 01-17-2025 Protein [Mass/Vol] 6.1 g/dL 5.9-8.4 [facility] White blood cell (WBC) count Ordered By: Leandro Lua on 01-17-2025 WBC (Bld) [#/Vol] 5.6 10*3/uL 4.4-11.0 [facility] Absolute lymphocyte countOrd ered By: Leandro Lua on 01-10-2025 Lymphocytes Auto (Unsp spec) [#/Vol] 1.23 10*3/uL 0.83-4.51 [facility] Absolute neutrophil countOrd ered By: Leandro Lua on 01-10-2025 Neutrophils (Bld) [#/Vol] 5.4 10*3/uL 2.0-7.7 [facility] Anion gap in Serum or Plasma Ordered By: Leandro Lua on 01-10-2025 Anion gap [Moles/Vol] 12 mmol/L 5-15 [facility] Automated lymphocyte count a s percentage of total leukocytesOrdered By: Leandro Lua on 01-10-2025 Lymphocytes/100 WBC Auto (Unsp spec) 16.5 % Low 19-41 [facility] BUN/creatinine ratioOrdered By: Leandro Lua on 01-10-2025 Urea nitrogen/Creatinine [Mass ratio] 40.7 mg/mg High 10-20 [facility] Basic Metabolic Profile (BMP )on 01-10-2025 BUN/CRE 40.7 RATIO High 06-04 [facility] Comment on above: Performed By: #### L 100.0100, L500.2500 #### [facility] [address] [place], [address] Calcium [Mass/Vol] 8.9 mg/dL Normal 7.6-11.0 [facility] Comment on above: Performed By: #### L 100.0100, L500.2500 #### [facility] [address] [place], [address] Chloride [Moles/Vol] 105 mmol/L Normal 98-[address] [facility] Comment on above: Performed By: #### L 100.0100, L500.2500 #### [facility] [address] [place], [address] CO2 [Moles/Vol] 23.3 mmol/L Normal 21.0-32.0 [facility] Comment on above: Performed By: #### L 100.0100, L500.2500 #### [facility] [address] [place], [address] Creatinine [Mass/Vol] 0.48 mg/dL Low 0.70-1.20 [facility] Comment on above: Performed By: #### L 100.0100, L500.2500 #### [facility] [address] [place], [address] GAP 12 Normal 5-15 [facility] Comment on above: Performed By: #### L 100.0100, L500.2500 #### [facility] [address] [place], [address] GFR/1.73 sq M.predicted among non-blacks MDRD (S/P/Bld) [Vol rate/Area] 93 mL/min/{1.73_m2} Normal >60 [facility] Comment on above: Result Comment: mL/m in/1.73m2 CKD-EPI Creatinine Equation (2020) Performed By: #### L 100.0100, L500.2500 #### [facility] [address] [place], [address] Glucose [Mass/Vol] 114 mg/dL High 70-99 [facility] Comment on above: Performed By: #### L 100.0100, L500.2500 #### [facility] [address] [place], [address] Potassium [Moles/Vol] 3.9 mmol/L Normal 3.3-5.1 [facility] Comment on above: Performed By: #### L 100.0100, L500.2500 #### [facility] [address] [place], [address] Sodium [Moles/Vol] 140 mmol/L Normal 133-145 [facility] Comment on above: Performed By: #### L 100.0100, L500.2500 #### [facility] [address] [place], [address] Urea nitrogen [Mass/Vol] 20 mg/dL High 4-19 [facility] Comment on above: Performed By: #### L 100.0100, L500.2500 #### [facility] [address] [place], [address] Basophil percentageOrdered B y: Leandro Lua on 01-10-2025 Basophils/100 WBC (Bld) 0.5 % 0-1 [facility] Blood manual differential co mment interpretation (narrative result)Ordered By: Leandro Lua on 01-10-2025 Manual differential comment Lenny (Bld) [Interp] SCANNED [facility] CBC W/Diff, Automatedon - Anisocytosis Ql (Bld) 2+ Normal [facility] Comment on above: Performed By: #### L 100.0100, L500.2500 #### [facility] [address] [place], [address] PLT EST ADEQUATE Normal ADEQ [facility] Comment on above: Performed By: #### L 100.0100, L500.2500 #### [facility] [address] [place], [address] SMEAR COMMENT SCANNED Normal [facility] Comment on above: Performed By: #### L 100.0100, L500.2500 #### [facility] [address] [place], [address] Carbon dioxide, total [Moles /volume] in Central venous bloodOrdered By: Leandro Lua on 01-10-2025 CO2 [Moles/Vol] 23.3 mmol/L 21.0-32.0 [facility] Chloride assayOrdered By: Scottie Lua on 01-10-2025 Chloride [Moles/Vol] 105 mmol/L 98-[address] [facility] Eosinophil percentageOrdered By: Leandro Lua on 01-10-2025 Eosinophils/100 WBC (Bld) 1.5 % 0-5 [facility] Erythrocyte distribution wid th ratioOrdered By: Leandro Lua on 01-10-2025 Erythrocyte distribution width (RBC) [Ratio] 22.1 % High 11.6-14.6 [facility] Erythrocyte distribution wid th standard deviationOrdered By: Leandro Lua on 01-10-2025 Erythrocyte distribution width (RBC) [Ratio] 68.9 fl High 35.1-43.9 [facility] Glomerular filtration rate ( GFR) estimation/1.73 sq m using serum, plasma, or whole bOrdered By: Leandro Lua on 01-10-2025 GFR/1.73 sq M.predicted among non-blacks MDRD (S/P/Bld) [Vol rate/Area] 93 mL/min/{1.73_m2} >60 [facility] Comment on above: mL/min/1.73m2 CKD-EP I Creatinine Equation (2020) Hematocrit Auto (Bld) [Volum e fraction]Ordered By: Leandro Lua on 01-10-2025 Hematocrit (Bld) [Volume fraction] 34.1 % Low 37-47 [facility] Hemoglobin measurementOrdere d By: Leandro Lua on 01-10-2025 Hemoglobin (Bld) [Mass/Vol] 10.5 g/dL Low 12.0-15.0 [facility] Immature granulocytes/100 WB C Auto (Bld)Ordered By: Leandro Lua on 01-10-2025 Immature granulocytes/100 WBC (Bld) 0.900 % 0.0-0.9 [facility] Comment on above: IG% - Immature Granu locytes (promyelocytes, myelocytes and metamyelocytes) > 1% indicates that a LEFT SHIFT is Present. Laboratory - Hematology and Cell countsOrdered By: Leandro Lua on 01-10-2025 Anisocytosis Ql (Bld) 2+ [facility] MCV (mean corpuscular volume ) determinationOrdered By: Leandro Lua on 01-10-2025 MCV (RBC) [Entitic vol] 87.2 fL 81-99 [facility] Mean corpuscular hemoglobin (MCH) determinationOrdered By: Leandro Lua on 01-10-2025 MCH (RBC) [Entitic mass] 26.9 pg Low 27.0-32.0 [facility] Mean corpuscular hemoglobin concentration (MCHC) determinationOrdered By: Leandro Lua 01-10-2025 MCHC (RBC) [Mass/Vol] 30.8 g/dL Low 32-36 [facility] Mean platelet volume determi nationOrdered By: Leandro Lua on 01-10-2025 Platelet mean volume (Bld) [Entitic vol] 9.5 fL 6.2-12.0 [facility] Monocyte percentageOrdered B y: Leandro Chungok on 01-10-2025 Monocytes/100 WBC (Bld) 7.8 % 0-10 [facility] Neutrophil percentageOrdered By: Leandro Lua on 01-10-2025 Neutrophils/100 WBC (Bld) 72.8 % High 47-70 [facility] Nucleated red blood cell per centageOrdered By: Leandro Lua on 01-10-2025 Nucleated RBC/100 WBC (Bld) [Ratio] 0 % 0-5 [facility] Platelet countOrdered By: Scottie Lua on 01-10-2025 Platelets (Bld) [#/Vol] 255 10*3/uL 150-450 [facility] Platelet estimateOrdered By: Leandro Lua on 01-10-2025 Platelets LM Ql (Bld) ADEQUATE ADEQ [facility] Potassium measurement (mass/ volume)Ordered By: Leandro Lua on 01-10-2025 Potassium (Unsp spec) [Mass/Vol] 3.9 mmol/L 3.3-5.1 [facility] RBC Auto (Bld) [#/Vol]Ordere d By: Leandro Lua on 01-10-2025 RBC (Bld) [#/Vol] 3.91 10*6/uL Low 4.2-5.4 [facility] Serum creatinine measurement (mass/volume)Ordered By: Leandro Lua on 01-10-2025 Creatinine [Mass/Vol] 0.48 mg/dL Low 0.70-1.20 [facility] Serum glucose measurement (m ass/volume)Ordered By: Leandro Lua on 01-10-2025 Glucose [Mass/Vol] 114 mg/dL High 70-99 [facility] Serum or plasma calcium ashley urement (mass/volume)Ordered By: Leandro Lua on 01-10-2025 Calcium [Mass/Vol] 8.9 mg/dL 7.6-11.0 [facility] Serum or plasma urea nitroge n measurement (mass/volume)Ordered By: Leandro Lua on 01-10-2025 Urea nitrogen [Mass/Vol] 20 mg/dL High 4- [facility] Sodium levelOrdered By: Leandro Lua on 01-10-2025 Sodium [Moles/Vol] 140 mmol/L 133-145 [facility] White blood cell (WBC) count Ordered By: Leandro Lua on 01-10-2025 WBC (Bld) [#/Vol] 7.5 10*3/uL 4.4-11.0 [facility] Anion gap in Serum or Plasma Ordered By: Leandro Lua on 12-28-2024 Anion gap [Moles/Vol] 13 mmol/L 12-28 [facility] BUN/creatinine ratioOrdered By: Leandro Lua on 12-28-2024 Urea nitrogen/Creatinine [Mass ratio] 44.7 mg/mg High 06-04 [facility] Basic Metabolic Profile (BMP )on 12-28-2024 BUN/CRE 44.7 RATIO High 06-04 [facility] Comment on above: Performed By: #### L 500.4050, L100.0100, L506.1000, L501.9520, L500.4100 #### [place] [facility] [address] [place], [address] Calcium [Mass/Vol] 9.4 mg/dL Normal 7.6-11.0 [facility] Comment on above: Performed By: #### L 500.4050, L100.0100, L506.1000, L501.9520, L500.4100 #### [facility] [address] [place], [address] Chloride [Moles/Vol] 97 mmol/L Low 98-[address] [facility] Comment on above: Performed By: #### L 500.4050, L100.0100, L506.1000, L501.9520, L500.4100 #### [facility] [address] [place], [address] CO2 [Moles/Vol] 27.1 mmol/L Normal 21.0-32.0 [facility] Comment on above: Performed By: #### L 500.4050, L100.0100, L506.1000, L501.9520, L500.4100 #### [facility] [address] [place], [address] Creatinine [Mass/Vol] 0.46 mg/dL Low 0.70-1.20 [facility] Comment on above: Performed By: #### L 500.4050, L100.0100, L506.1000, L501.9520, L500.4100 #### [facility] [address] [place], [address] GAP 13 Normal 5-15 [facility] Comment on above: Performed By: #### L 500.4050, L100.0100, L506.1000, L501.9520, L500.4100 #### [facility] [address] [place], [address] GFR/1.73 sq M.predicted among non-blacks MDRD (S/P/Bld) [Vol rate/Area] 94 mL/min/{1.73_m2} Normal >60 [facility] Comment on above: Result Comment: mL/m in/1.73m2 CKD-EPI Creatinine Equation (2020) Performed By: #### L 500.4050, L100.0100, L506.1000, L501.9520, L500.4100 #### [facility] [address] [place], [address] Glucose [Mass/Vol] 118 mg/dL High 70-99 [facility] Comment on above: Performed By: #### L 500.4050, L100.0100, L506.1000, L501.9520, L500.4100 #### [facility] [address] [place], [address] Potassium [Moles/Vol] 3.9 mmol/L Normal 3.3-5.1 [facility] Comment on above: Performed By: #### L 500.4050, L100.0100, L506.1000, L501.9520, L500.4100 #### [facility] [address] [place], [address] Sodium [Moles/Vol] 137 mmol/L Normal 133-145 [facility] Comment on above: Performed By: #### L 500.4050, L100.0100, L506.1000, L501.9520, L500.4100 #### [facility] [address] [place], [address] Urea nitrogen [Mass/Vol] 21 mg/dL High 4-19 [facility] Comment on above: Performed By: #### L 500.4050, L100.0100, L506.1000, L501.9520, L500.4100 #### [facility] [address] [place], [address] Carbon dioxide, total [Moles /volume] in Central venous bloodOrdered By: Leandro Lua on 12-28-2024 CO2 [Moles/Vol] 27.1 mmol/L 21.0-32.0 [facility] Chloride assayOrdered By: Scottie Lua on 12-28-2024 Chloride [Moles/Vol] 97 mmol/L Low 98-[address] [facility] Glomerular filtration rate ( GFR) estimation/1.73 sq m using serum, plasma, or whole bOrdered By: Leandro Lua on 12-28-2024 GFR/1.73 sq M.predicted among non-blacks MDRD (S/P/Bld) [Vol rate/Area] 94 mL/min/{1.73_m2} >60 [facility] Comment on above: mL/min/1.73m2 CKD-EP I Creatinine Equation (2020) Potassium measurement (mass/ volume)Ordered By: Leandro Lua on 12-28-2024 Potassium (Unsp spec) [Mass/Vol] 3.9 mmol/L 3.3-5.1 [facility] Serum creatinine measurement (mass/volume)Ordered By: Leandro Lua on 12-28-2024 Creatinine [Mass/Vol] 0.46 mg/dL Low 0.70-1.20 [facility] Serum glucose measurement (m ass/volume)Ordered By: Leandro Lua on 12-28-2024 Glucose [Mass/Vol] 118 mg/dL High 70-99 [facility] Serum or plasma calcium ashley urement (mass/volume)Ordered By: Leandro Lua on 12-28-2024 Calcium [Mass/Vol] 9.4 mg/dL 7.6-11.0 [facility] Serum or plasma urea nitroge n measurement (mass/volume)Ordered By: Leandro Lua on 12-28-2024 Urea nitrogen [Mass/Vol] 21 mg/dL High 4-19 [facility] Sodium levelOrdered By: Leandro Lua on 12-28-2024 Sodium [Moles/Vol] 137 mmol/L 133-145 [facility] Absolute lymphocyte countOrd ered By: Leandro Lua on 12-20-2024 Lymphocytes Auto (Unsp spec) [#/Vol] 1.19 10*3/uL 0.83-4.51 [facility] Absolute neutrophil countOrd ered By: Leandro Lua on 12-20-2024 Neutrophils (Bld) [#/Vol] 3.8 10*3/uL 2.0-7.7 [facility] Anion gap in Serum or Plasma Ordered By: Leandro Lua on 12-20-2024 Anion gap [Moles/Vol] 13 mmol/L 5-15 [facility] Automated lymphocyte count a s percentage of total leukocytesOrdered By: Leandro Lua on 12-20-2024 Lymphocytes/100 WBC Auto (Unsp spec) 20.7 % [facility] BUN/creatinine ratioOrdered By: Leandro Lua on 12-20-2024 Urea nitrogen/Creatinine [Mass ratio] 30.5 mg/mg High 06-04 [facility] Basic Metabolic Profile (BMP )on 12-20-2024 BUN/CRE 30.5 RATIO High 06-04 [facility] Comment on above: Performed By: #### L 500.4050, L100.0100, L506.1000, L501.9520, L500.4100 #### [facility] [address] [place], [address] Calcium [Mass/Vol] 9.3 mg/dL Normal 7.6-11.0 [facility] Comment on above: Performed By: #### L 500.4050, L100.0100, L506.1000, L501.9520, L500.4100 #### [facility] [address] [place], [address] Chloride [Moles/Vol] 94 mmol/L Low 98-[address] [facility] Comment on above: Performed By: #### L 500.4050, L100.0100, L506.1000, L501.9520, L500.4100 #### [facility] [address] [place], [address] CO2 [Moles/Vol] 26.1 mmol/L Normal 21.0-32.0 [facility] Comment on above: Performed By: #### L 500.4050, L100.0100, L506.1000, L501.9520, L500.4100 #### [facility] [address] [place], [address] Creatinine [Mass/Vol] 0.50 mg/dL Low 0.70-1.20 [facility] Comment on above: Performed By: #### L 500.4050, L100.0100, L506.1000, L501.9520, L500.4100 #### [facility] [address] [place], [address] GAP 13 Normal 5-15 [facility] Comment on above: Performed By: #### L 500.4050, L100.0100, L506.1000, L501.9520, L500.4100 #### [facility] [address] [place], [address] GFR/1.73 sq M.predicted among non-blacks MDRD (S/P/Bld) [Vol rate/Area] 92 mL/min/{1.73_m2} Normal >60 [facility] Comment on above: Result Comment: mL/m in/1.73m2 CKD-EPI Creatinine Equation (2020) Performed By: #### L 500.4050, L100.0100, L506.1000, L501.9520, L500.4100 #### [facility] [address] [place], [address] Glucose [Mass/Vol] 114 mg/dL High 70-99 [facility] Comment on above: Performed By: #### L 500.4050, L100.0100, L506.1000, L501.9520, L500.4100 #### [facility] [address] [place], [address] Potassium [Moles/Vol] 3.9 mmol/L Normal 3.3-5.1 [facility] Comment on above: Performed By: #### L 500.4050, L100.0100, L506.1000, L501.9520, L500.4100 #### [facility] [address] [place], [address] Sodium [Moles/Vol] 132 mmol/L Low 133-145 [facility] Comment on above: Performed By: #### L 500.4050, L100.0100, L506.1000, L501.9520, L500.4100 #### [facility] [address] [place], [address] Urea nitrogen [Mass/Vol] 15 mg/dL Normal 4-19 [facility] Comment on above: Performed By: #### L 500.4050, L100.0100, L506.1000, L501.9520, L500.4100 #### [facility] [address] [place], [address] Basophil percentageOrdered B y: Leandro Lua on 12-20-2024 Basophils/100 WBC (Bld) 0.7 % 0-1 [facility] CBC W/Diff, Automatedon Absolute Lymph 1.19 X10 3/uL Normal 0.83-4.51 [facility] Comment on above: Performed By: #### L 500.4050, L100.0100, L506.1000, L501.9520, L500.4100 #### [facility] [address] [place], [address] Absolute Neut 3.8 X10 3/uL Normal 2.0-7.7 [facility] Comment on above: Performed By: #### L 500.4050, L100.0100, L506.1000, L501.9520, L500.4100 #### [facility] [address] [place], [address] Basophils/100 WBC (Bld) 0.7 % Normal 0-1 [facility] Comment on above: Performed By: #### L 500.4050, L100.0100, L506.1000, L501.9520, L500.4100 #### [facility] [address] [place], [address] Eosinophils/100 WBC (Bld) 2.4 % Normal 0-5 [facility] Comment on above: Performed By: #### L 500.4050, L100.0100, L506.1000, L501.9520, L500.4100 #### [facility] [address] [place], [address] Erythrocyte distribution width (RBC) [Ratio] 20.0 % High 11.6-14.6 [facility] Comment on above: Performed By: #### L 500.4050, L100.0100, L506.1000, L501.9520, L500.4100 #### [facility] [address] [place], [address] Hematocrit (Bld) [Volume fraction] 36.0 % Low 37-47 [facility] Comment on above: Performed By: #### L 500.4050, L100.0100, L506.1000, L501.9520, L500.4100 #### [facility] [address] [place], [address] Hemoglobin (Bld) [Mass/Vol] 11.5 g/dL Low 12.0-15.0 [facility] Comment on above: Performed By: #### L 500.4050, L100.0100, L506.1000, L501.9520, L500.4100 #### [facility] [address] [place], [address] IG% 0.700 Normal 0.0-0.9 [facility] Comment on above: Result Comment: IG% - Immature Granulocytes (promyelocytes, myelocytes and metamyelocytes) > 1% indicates that a LEFT SHIFT is Present. Performed By: #### L 500.4050, L100.0100, L506.1000, L501.9520, L500.4100 #### [facility] [address] [place], [address] Lymphocytes/100 WBC (Bld) 20.7 % Normal 19-41 [facility] Comment on above: Performed By: #### L 500.4050, L100.0100, L506.1000, L501.9520, L500.4100 #### [facility] [address] [place], [address] MCH (RBC) [Entitic mass] 26.1 pg Low 27.0-32.0 [facility] Comment on above: Performed By: #### L 500.4050, L100.0100, L506.1000, L501.9520, L500.4100 #### [facility] [address] [place], [address] MCHC (RBC) [Mass/Vol] 31.9 g/dL Low 32-36 [facility] Comment on above: Performed By: #### L 500.4050, L100.0100, L506.1000, L501.9520, L500.4100 #### [facility] [address] [place], [address] MCV (RBC) [Entitic vol] 81.6 fL Normal 81-99 [facility] Comment on above: Performed By: #### L 500.4050, L100.0100, L506.1000, L501.9520, L500.4100 #### [facility] [address] [place], [address] Monocytes/100 WBC (Bld) 9.7 % Normal 0-10 [facility] Comment on above: Performed By: #### L 500.4050, L100.0100, L506.1000, L501.9520, L500.4100 #### [facility] [address] [place], [address] Neutrophils/100 WBC (Bld) 65.8 % Normal 47-70 [facility] Comment on above: Performed By: #### L 500.4050, L100.0100, L506.1000, L501.9520, L500.4100 #### [facility] [address] [place], [address] Nucleated RBC (Bld) [#/Vol] 0 10*3/uL Normal 0-5 [facility] Comment on above: Performed By: #### L 500.4050, L100.0100, L506.1000, L501.9520, L500.4100 #### [facility] [address] [place], [address] Platelet mean volume (Bld) [Entitic vol] 9.6 fL Normal 6.2-12.0 [facility] Comment on above: Performed By: #### L 500.4050, L100.0100, L506.1000, L501.9520, L500.4100 #### [facility] [address] [place], [address] Platelets (Bld) [#/Vol] 272 10*3/uL Normal 150-450 [facility] Comment on above: Performed By: #### L 500.4050, L100.0100, L506.1000, L501.9520, L500.4100 #### [facility] [address] [place], [address] RBC (Bld) [#/Vol] 4.41 10*6/uL Normal 4.2-5.4 [facility] Comment on above: Performed By: #### L 500.4050, L100.0100, L506.1000, L501.9520, L500.4100 #### [facility] [address] [place], [address] RDW SD 58.3 fl High 35.1-43.9 [facility] Comment on above: Performed By: #### L 500.4050, L100.0100, L506.1000, L501.9520, L500.4100 #### [facility] [address] [place], [address] WBC (Bld) [#/Vol] 5.8 10*3/uL Normal 4.4-11.0 [facility] Comment on above: Performed By: #### L 500.4050, L100.0100, L506.1000, L501.9520, L500.4100 #### [facility] [address] [place], [address] Carbon dioxide, total [Moles /volume] in Central venous bloodOrdered By: Leandro Lua on 12-20-2024 CO2 [Moles/Vol] 26.1 mmol/L 21.0-32.0 [facility] Chloride assayOrdered By: Scottie Lua on 12-20-2024 Chloride [Moles/Vol] 94 mmol/L Low 98-[address] [facility] Eosinophil percentageOrdered By: Leandro Lua on 12-20-2024 Eosinophils/100 WBC (Bld) 2.4 % 0-5 [facility] Erythrocyte distribution wid th ratioOrdered By: Leandro Lua on 12-20-2024 Erythrocyte distribution width (RBC) [Ratio] 20.0 % High 11.6-14.6 [facility] Erythrocyte distribution wid th standard deviationOrdered By: Leandro Lua on 12-20-2024 Erythrocyte distribution width (RBC) [Ratio] 58.3 fl High 35.1-43.9 [facility] Glomerular filtration rate ( GFR) estimation/1.73 sq m using serum, plasma, or whole bOrdered By: Leandro Lua on 12-20-2024 GFR/1.73 sq M.predicted among non-blacks MDRD (S/P/Bld) [Vol rate/Area] 92 mL/min/{1.73_m2} >60 [facility] Comment on above: mL/min/1.73m2 CKD-EP I Creatinine Equation (2020) Hematocrit Auto (Bld) [Volum e fraction]Ordered By: Leandro Lua on 12-20-2024 Hematocrit (Bld) [Volume fraction] 36.0 % Low 37-47 [facility] Hemoglobin measurementOrdere d By: Leandro Lua on 12-20-2024 Hemoglobin (Bld) [Mass/Vol] 11.5 g/dL Low 12.0-15.0 [facility] Immature granulocytes/100 WB C Auto (Bld)Ordered By: Leandro Lua on 12-20-2024 Immature granulocytes/100 WBC (Bld) 0.700 % 0.0-0.9 [facility] Comment on above: IG% - Immature Granu locytes (promyelocytes, myelocytes and metamyelocytes) > 1% indicates that a LEFT SHIFT is Present. MCV (mean corpuscular volume ) determinationOrdered By: Leandro Lua on 12-20-2024 MCV (RBC) [Entitic vol] 81.6 fL 81-99 [facility] Mean corpuscular hemoglobin (MCH) determinationOrdered By: Leandro Lua 12-20-2024 MCH (RBC) [Entitic mass] 26.1 pg Low 27.0-32.0 [facility] Mean corpuscular hemoglobin concentration (MCHC) determinationOrdered By: Leandro Lua 12-20-2024 MCHC (RBC) [Mass/Vol] 31.9 g/dL Low 32-36 [facility] Mean platelet volume determi nationOrdered By: Leandro Lua on 12-20-2024 Platelet mean volume (Bld) [Entitic vol] 9.6 fL 6.2-12.0 [facility] Monocyte percentageOrdered B y: Leandro Lua on 12-20-2024 Monocytes/100 WBC (Bld) 9.7 % 0-10 [facility] Neutrophil percentageOrdered By: Leandro Lua on 12-20-2024 Neutrophils/100 WBC (Bld) 65.8 % 47-70 [facility] Nucleated red blood cell per centageOrdered By: Leandro Lua on 12-20-2024 Nucleated RBC/100 WBC (Bld) [Ratio] 0 % 0-5 [facility] Platelet countOrdered By: Scottie Lua on 12-20-2024 Platelets (Bld) [#/Vol] 272 10*3/uL 150-450 [facility] Potassium measurement (mass/ volume)Ordered By: Leandro Lua on 12-20-2024 Potassium (Unsp spec) [Mass/Vol] 3.9 mmol/L 3.3-5.1 [facility] RBC Auto (Bld) [#/Vol]Ordere d By: Leandro Lua on 12-20-2024 RBC (Bld) [#/Vol] 4.41 10*6/uL 4.2-5.4 [facility] Serum creatinine measurement (mass/volume)Ordered By: Leandro Lua on 12-20-2024 Creatinine [Mass/Vol] 0.50 mg/dL Low 0.70-1.20 [facility] Serum glucose measurement (m ass/volume)Ordered By: Leandro Lua on 12-20-2024 Glucose [Mass/Vol] 114 mg/dL High 70-99 [facility] Serum or plasma calcium ashley urement (mass/volume)Ordered By: Leandro Lua on 12-20-2024 Calcium [Mass/Vol] 9.3 mg/dL 7.6-11.0 [facility] Serum or plasma urea nitroge n measurement (mass/volume)Ordered By: Leandro Lua on 12-20-2024 Urea nitrogen [Mass/Vol] 15 mg/dL 4-19 [facility] Sodium levelOrdered By: Leandro Lua on 12-20-2024 Sodium [Moles/Vol] 132 mmol/L Low 133-145 [facility] White blood cell (WBC) count Ordered By: Leandro Lua on 12-20-2024 WBC (Bld) [#/Vol] 5.8 10*3/uL 4.4-11.0 [facility] Absolute lymphocyte countOrd ered By: Leandro Lua on 12-13-2024 Lymphocytes Auto (Unsp spec) [#/Vol] 1.18 10*3/uL 0.83-4.51 [facility] Absolute neutrophil countOrd ered By: Leandro Lua on 12-13-2024 Neutrophils (Bld) [#/Vol] 5.6 10*3/uL 2.0-7.7 [facility] Anion gap in Serum or Plasma Ordered By: Leandro Lua on 12-13-2024 Anion gap [Moles/Vol] 13 mmol/L 5-15 [facility] Automated lymphocyte count a s percentage of total leukocytesOrdered By: Leandro Lua on 12-13-2024 Lymphocytes/100 WBC Auto (Unsp spec) 15.5 % Low 19-41 [facility] BUN/creatinine ratioOrdered By: Leandro Lua on 12-13-2024 Urea nitrogen/Creatinine [Mass ratio] 40.2 mg/mg High 10-20 [facility] Basophil percentageOrdered B y: Leandro Lua on 12-13-2024 Basophils/100 WBC (Bld) 0.5 % 0-1 [facility] Bilirubin, totalOrdered By: Leandro Lua on 12-13-2024 Bilirubin [Mass/Vol] 0.45 mg/dL 0.00-1.[address] [facility] CBC W/Diff, Automatedon 11-16 Absolute Lymph 1.18 X10 3/uL Normal 0.83-4.51 [facility] Comment on above: Performed By: #### L 503.7505, L500.4050, L100.0100 ####[facility] [address] [place], [address] Absolute Neut 5.6 X10 3/uL Normal 2.0-7.7 [facility] Comment on above: Performed By: #### L 503.7505, L500.4050, L100.0100 ####[facility] [address] [place], [address] Basophils/100 WBC (Bld) 0.5 % Normal 0-1 [facility] Comment on above: Performed By: #### L 503.7505, L500.4050, L100.0100 ####[facility] [address] [place], [address] Eosinophils/100 WBC (Bld) 1.8 % Normal 0-5 [facility] Comment on above: Performed By: #### L 503.7505, L500.4050, L100.0100 ####[facility] [address] [place], [address] Erythrocyte distribution width (RBC) [Ratio] 19.5 % High 11.6-14.6 [facility] Comment on above: Performed By: #### L 503.7505, L500.4050, L100.0100 ####[facility] [address] [place], [address] Hematocrit (Bld) [Volume fraction] 36.2 % Low 37-47 [facility] Comment on above: Performed By: #### L 503.7505, L500.4050, L100.0100 ####[facility] [address] [place], [address] Hemoglobin (Bld) [Mass/Vol] 11.2 g/dL Low 12.0-15.0 [facility] Comment on above: Performed By: #### L 503.7505, L500.4050, L100.0100 ####[facility] [address] [place], [address] IG% 0.900 Normal 0.0-0.9 [facility] Comment on above: Result Comment: IG% - Immature Granulocytes (promyelocytes, myelocytes and metamyelocytes) > 1% indicates that a LEFT SHIFT is Present. Performed By: #### L 503.7505, L500.4050, L100.0100 ####[facility] [address] [place], [address] Lymphocytes/100 WBC (Bld) 15.5 % Low 19-41 [facility] Comment on above: Performed By: #### L 503.7505, L500.4050, L100.0100 ####[facility] [address] [place], [address] MCH (RBC) [Entitic mass] 25.5 pg Low 27.0-32.0 [facility] Comment on above: Performed By: #### L 503.7505, L500.4050, L100.0100 ####[facility] [address] [place], [address] MCHC (RBC) [Mass/Vol] 30.9 g/dL Low 32-36 [facility] Comment on above: Performed By: #### L 503.7505, L500.4050, L100.0100 ####[facility] [address] [place], [address] MCV (RBC) [Entitic vol] 82.5 fL Normal 81-99 [facility] Comment on above: Performed By: #### L 503.7505, L500.4050, L100.0100 ####[facility] [address] [place], [address] Monocytes/100 WBC (Bld) 7.1 % Normal 0-10 [facility] Comment on above: Performed By: #### L 503.7505, L500.4050, L100.0100 ####[facility] [address] [place], [address] Neutrophils/100 WBC (Bld) 74.2 % High 47-70 [facility] Comment on above: Performed By: #### L 503.7505, L500.4050, L100.0100 ####[facility] [address] [place], [address] Nucleated RBC (Bld) [#/Vol] 0 10*3/uL Normal 0-5 [facility] Comment on above: Performed By: #### L 503.7505, L500.4050, L100.0100 ####[facility] [address] [place], [address] Platelet mean volume (Bld) [Entitic vol] 10.0 fL Normal 6.2-12.0 [facility] Comment on above: Performed By: #### L 503.7505, L500.4050, L100.0100 ####[facility] [address] [place], [address] Platelets (Bld) [#/Vol] 313 10*3/uL Normal 150-450 [facility] Comment on above: Performed By: #### L 503.7505, L500.4050, L100.0100 ####[facility] [address] [place], [address] RBC (Bld) [#/Vol] 4.39 10*6/uL Normal 4.2-5.4 [facility] Comment on above: Performed By: #### L 503.7505, L500.4050, L100.0100 ####[facility] [address] [place], [address] RDW SD 56.0 fl High 35.1-43.9 [facility] Comment on above: Performed By: #### L 503.7505, L500.4050, L100.0100 ####[facility] [address] [place], [address] WBC (Bld) [#/Vol] 7.6 10*3/uL Normal 4.4-11.0 [facility] Comment on above: Performed By: #### L 503.7505, L500.4050, L100.0100 ####[facility] [address] [place], [address] Carbon dioxide, total [Moles /volume] in Central venous bloodOrdered By: Leandro Lua on 12-13-2024 CO2 [Moles/Vol] 25.1 mmol/L 21.0-32.0 [facility] Chest PA and Lateralon 12-13 Chest PA and Lateral [facility] [address] [place] [address] Chest PA and Lateral MR#: [id number] Acct: [id number] Name: TORSTEN COLINDRES Rep #: [id number] : 1940 F 84 From: Yeimi Abreu PCP: Dr. Leandro Lua MD Status: REG CLI Study: Chest PA and Lateral Date of Exam: 12/13/24 Exam# [id number] Ordering Dr: Leandro Lua MD PROCEDURE: CHEST [...] of value if clinically warranted. Reading Location: [id number] CC: Dr. Leandro Lua MD Client Experience Manager: Signed Normal [facility] Chloride assayOrdered By: Scottie Lua on 12-13-2024 Chloride [Moles/Vol] 100 mmol/L 98-[address] [facility] Comprehensive Metabolic Prof ilon 12-13-2024 Albumin [Mass/Vol] 4.0 g/dL Normal 3.4-4.8 [facility] Comment on above: Performed By: #### L 503.7505, L500.4050, L100.0100 ####[facility] [address] [place], [address] Albumin/Globulin [Mass ratio] 1.5 {ratio} Normal 0.9-2.4 [facility] Comment on above: Performed By: #### L 503.7505, L500.4050, L100.0100 ####[facility] [address] [place], [address] ALK PHOS 97 U/L Normal 35-104 [facility] Comment on above: Performed By: #### L 503.7505, L500.4050, L100.0100 ####[facility] [address] [place], [address] ALT [Catalytic activity/Vol] 13 U/L Normal <=34 [facility] Comment on above: Performed By: #### L 503.7505, L500.4050, L100.0100 ####[facility] [address] [place], [address] AST [Catalytic activity/Vol] 20 U/L Normal <=31 [facility] Comment on above: Performed By: #### L 503.7505, L500.4050, L100.0100 ####[facility] [address] [place], [address] Bilirubin [Mass/Vol] 0.45 mg/dL Normal 0.00-1.[address] [facility] Comment on above: Performed By: #### L 503.7505, L500.4050, L100.0100 ####[facility] [address] [place], [address] BUN/CRE 40.2 RATIO High 10-20 [facility] Comment on above: Performed By: #### L 503.7505, L500.4050, L100.0100 ####[facility] [address] [place], [address] Calcium [Mass/Vol] 9.4 mg/dL Normal 7.6-11.0 [facility] Comment on above: Performed By: #### L 503.7505, L500.4050, L100.0100 ####[facility] [address] [place], [address] Chloride [Moles/Vol] 100 mmol/L Normal 98-[address] [facility] Comment on above: Performed By: #### L 503.7505, L500.4050, L100.0100 ####[facility] [address] [place], [address] CO2 [Moles/Vol] 25.1 mmol/L Normal 21.0-32.0 [facility] Comment on above: Performed By: #### L 503.7505, L500.4050, L100.0100 ####[facility] [address] [place], [address] Creatinine [Mass/Vol] 0.47 mg/dL Low 0.70-1.20 [facility] Comment on above: Performed By: #### L 503.7505, L500.4050, L100.0100 ####[facility] [address] [place], [address] GAP 13 Normal 5-15 [facility] Comment on above: Performed By: #### L 503.7505, L500.4050, L100.0100 ####[facility] [address] [place], [address] GFR/1.73 sq M.predicted among non-blacks MDRD (S/P/Bld) [Vol rate/Area] 94 mL/min/{1.73_m2} Normal >60 [facility] Comment on above: Result Comment: mL/m in/1.73m2 CKD-EPI Creatinine Equation (2020) Performed By: #### L 503.7505, L500.4050, L100.0100 ####[facility] [address] [place], [address] Globulin (S) [Mass/Vol] 2.6 g/dL Normal 2.2-4.2 [facility] Comment on above: Performed By: #### L 503.7505, L500.4050, L100.0100 ####[facility] [address] [place], [address] Glucose [Mass/Vol] 110 mg/dL High 70-99 [facility] Comment on above: Performed By: #### L 503.7505, L500.4050, L100.0100 ####[facility] [address] [place], [address] Potassium [Moles/Vol] 3.6 mmol/L Normal 3.3-5.1 [facility] Comment on above: Performed By: #### L 503.7505, L500.4050, L100.0100 ####[facility] [address] [place], [address] Sodium [Moles/Vol] 138 mmol/L Normal 133-145 [facility] Comment on above: Performed By: #### L 503.7505, L500.4050, L100.0100 ####[facility] [address] [place], [address] T PROT 6.5 g/dL Normal 5.9-8.4 [facility] Comment on above: Performed By: #### L 503.7505, L500.4050, L100.0100 ####[facility] [address] [place], [address] Urea nitrogen [Mass/Vol] 19 mg/dL Normal 4-19 [facility] Comment on above: Performed By: #### L 503.7505, L500.4050, L100.0100 ####[facility] [address] [place], [address] Eosinophil percentageOrdered By: Leandro Lua on 12-13-2024 Eosinophils/100 WBC (Bld) 1.8 % 0-5 [facility] Erythrocyte distribution wid th ratioOrdered By: [facility] on 12-13-2024 Erythrocyte distribution width (RBC) [Ratio] 19.5 % High 11.6-14.6 [facility] Erythrocyte distribution wid th standard deviationOrdered By: [facility] on 12-13-2024 Erythrocyte distribution width (RBC) [Ratio] 56.0 fl High 35.1-43.9 [facility] Glomerular filtration rate ( GFR) estimation/1.73 sq m using serum, plasma, or whole bOrdered By: Leandro Chungok on 12-13-2024 GFR/1.73 sq M.predicted among non-blacks MDRD (S/P/Bld) [Vol rate/Area] 94 mL/min/{1.73_m2} >60 [facility] Comment on above: mL/min/1.73m2 CKD-EP I Creatinine Equation (2020) Hematocrit Auto (Bld) [Volum e fraction]Ordered By: Leandro Lua 12-13-2024 Hematocrit (Bld) [Volume fraction] 36.2 % Low 37-47 [facility] Hemoglobin measurementOrdere d By: Leandro Stoney 12-13-2024 Hemoglobin (Bld) [Mass/Vol] 11.2 g/dL Low 12.0-15.0 [facility] Immature granulocytes/100 WB C Auto (Bld)Ordered By: Leandro Lua 12-13-2024 Immature granulocytes/100 WBC (Bld) 0.900 % 0.0-0.9 [facility] Comment on above: IG% - Immature Granu locytes (promyelocytes, myelocytes and metamyelocytes) > 1% indicates that a LEFT SHIFT is Present. L503.7505on 12-13-2024 Natriuretic peptide B (Bld) [Mass/Vol] 296 pg/mL Normal <=1800 [facility] Comment on above: Result Comment: Hear t Failure Unlikely: < 300 pg/mL Heart Failure Likely < 50 Years: > 450 pg/mL 50-75 Years: > 900 pg/mL >75 Years: > 1800 pg/mL Performed By: #### L 503.7505, L500.4050, L100.0100 ####[facility] [address], [address] Laboratory - Chemistry and C hemistry - challengeOrdered By: Leandro Lua on 12-13-2024 AST [Catalytic activity/Vol] 20 U/L <32 [facility] MCV (mean corpuscular volume ) determinationOrdered By: Leandro Lua on 12-13-2024 MCV (RBC) [Entitic vol] 82.5 fL 81-99 [facility] Mean corpuscular hemoglobin (MCH) determinationOrdered By: Leandro Lua on 12-13-2024 MCH (RBC) [Entitic mass] 25.5 pg Low 27.0-32.0 [facility] Mean corpuscular hemoglobin concentration (MCHC) determinationOrdered By: Leandro Lua 12-13-2024 MCHC (RBC) [Mass/Vol] 30.9 g/dL Low 32-36 [facility] Mean platelet volume determi nationOrdered By: Leandro Lua 12-13-2024 Platelet mean volume (Bld) [Entitic vol] 10.0 fL 6.2-12.0 [facility] Monocyte percentageOrdered B y: Leandro Lua on 12-13-2024 Monocytes/100 WBC (Bld) 7.1 % 0-10 [facility] Natriuretic peptide.B prohor mele N-Terminal [Mass/volume] in Serum or PlasmaOrdered By: Leandro Lua on 12-13-2024 Natriuretic peptide.B prohormone N-Terminal [Mass/Vol] 296 pg/mL <1800 [facility] Comment on above: Heart Failure Unlike ly: < 300 pg/mLHeart Failure Likely< 50 Years: > 450 pg/mL50-75 Years: > 900 pg/mL>75 Years: > 1800 pg/mL Neutrophil percentageOrdered By: Leandro Lua on 12-13-2024 Neutrophils/100 WBC (Bld) 74.2 % High 47-70 [facility] Nucleated red blood cell per centageOrdered By: Leandro Lua on 12-13-2024 Nucleated RBC/100 WBC (Bld) [Ratio] 0 % 0-5 [facility] Platelet countOrdered By: Scottie Lua on 12-13-2024 Platelets (Bld) [#/Vol] 313 10*3/uL 150-450 [facility] Potassium measurement (mass/ volume)Ordered By: Leandro Lua on 12-13-2024 Potassium (Unsp spec) [Mass/Vol] 3.6 mmol/L 3.3-5.1 [facility] RBC Auto (Bld) [#/Vol]Ordere d By: Leandro Lua on 12-13-2024 RBC (Bld) [#/Vol] 4.39 10*6/uL 4.2-5.4 [facility] Serum creatinine measurement (mass/volume)Ordered By: Leandro Lua on 12-13-2024 Creatinine [Mass/Vol] 0.47 mg/dL Low 0.70-1.20 [facility] Serum globulin measurementOr dered By: Leandro Lua 12-13-2024 Globulin (S) [Mass/Vol] 2.6 g/dL 2.2-4.2 [facility] Serum glucose measurement (m ass/volume)Ordered By: Leandro Lua 12-13-2024 Glucose [Mass/Vol] 110 mg/dL High 70-99 [facility] Serum or plasma alanine zapata otransferase (ALT) measurementOrdered By: Leandro Lua 12-13-2024 ALT [Catalytic activity/Vol] 13 U/L <35 [facility] Serum or plasma albumin ashley urement (mass/volume)Ordered By: Leandro Lua 12-13-2024 Albumin [Mass/Vol] 4.0 g/dL 3.4-4.8 [facility] Serum or plasma albumin/glob ulin mass ratioOrdered By: Leandro Lua 12-13-2024 Albumin/Globulin [Mass ratio] 1.5 {ratio} 0.9-2.4 [facility] Serum or plasma alkaline isaiah sphatase measurementOrdered By: Leandro Lua on 12-13-2024 ALP [Catalytic activity/Vol] 97 U/L 35-104 [facility] Serum or plasma calcium ashley urement (mass/volume)Ordered By: Leandro Lua on 12-13-2024 Calcium [Mass/Vol] 9.4 mg/dL 7.6-11.0 [facility] Serum or plasma urea nitroge n measurement (mass/volume)Ordered By: Leandro Lua on 12-13-2024 Urea nitrogen [Mass/Vol] 19 mg/dL 4-19 [facility] Sodium levelOrdered By: Leandro Lua on 12-13-2024 Sodium [Moles/Vol] 138 mmol/L 133-145 [facility] Total proteinOrdered By: Leandro Lua on 12-13-2024 Protein [Mass/Vol] 6.5 g/dL 5.9-8.4 [facility] White blood cell (WBC) count Ordered By: Leandro Lua on 12-13-2024 WBC (Bld) [#/Vol] 7.6 10*3/uL 4.4-11.0 [facility] Anion gap in Serum or Plasma Ordered By: Tonya Cortez on 12-06-2024 Anion gap [Moles/Vol] 10 mmol/L 5- [facility] BUN/creatinine ratioOrdered By: Tonya Cortez on 12-06-2024 Urea nitrogen/Creatinine [Mass ratio] 43.1 mg/mg High 06-04 [facility] Basic Metabolic Profile (BMP )on 12-06-2024 BUN/CRE 43.1 RATIO High 06-04 [facility] Comment on above: Performed By: #### L 500.4050, L100.0100, L506.1000, L501.9520, L500.4100 #### [facility] [address] [place], [place], [id number] Calcium [Mass/Vol] 8.5 mg/dL Normal 7.6-11.0 [facility] Comment on above: Performed By: #### L 500.4050, L100.0100, L506.1000, L501.9520, L500.4100 #### [facility] [address] [place], [address] Chloride [Moles/Vol] 105 mmol/L Normal 98-[address] [facility] Comment on above: Performed By: #### L 500.4050, L100.0100, L506.1000, L501.9520, L500.4100 #### [facility] [address] [place], [address] CO2 [Moles/Vol] 24.1 mmol/L Normal 21.0-32.0 [facility] Comment on above: Performed By: #### L 500.4050, L100.0100, L506.1000, L501.9520, L500.4100 #### [facility] [address] [place], [address] Creatinine [Mass/Vol] 0.37 mg/dL Low 0.70-1.20 [facility] Comment on above: Performed By: #### L 500.4050, L100.0100, L506.1000, L501.9520, L500.4100 #### [facility] [address] [place], [address] ECRCL 59.61 ml/min Normal 50-250 [facility] Comment on above: Performed By: #### L 500.4050, L100.0100, L506.1000, L501.9520, L500.4100 #### [facility] [address] [place], [address] GAP 10 Normal 5-15 [facility] Comment on above: Performed By: #### L 500.4050, L100.0100, L506.1000, L501.9520, L500.4100 #### [facility] [address] [place], [address] GFR/1.73 sq M.predicted among non-blacks MDRD (S/P/Bld) [Vol rate/Area] 99 mL/min/{1.73_m2} Normal >60 [facility] Comment on above: Result Comment: mL/m in/1.73m2 CKD-EPI Creatinine Equation (2020) Performed By: #### L 500.4050, L100.0100, L506.1000, L501.9520, L500.4100 #### [facility] [address] [place], [address] Glucose [Mass/Vol] 114 mg/dL High 70-99 [facility] Comment on above: Performed By: #### L 500.4050, L100.0100, L506.1000, L501.9520, L500.4100 #### [facility] [address] [place], [address] Potassium [Moles/Vol] 3.3 mmol/L Normal 3.3-5.1 [facility] Comment on above: Performed By: #### L 500.4050, L100.0100, L506.1000, L501.9520, L500.4100 #### [facility] [address] [place], [address] Sodium [Moles/Vol] 138 mmol/L Normal 133-145 [facility] Comment on above: Performed By: #### L 500.4050, L100.0100, L506.1000, L501.9520, L500.4100 #### [facility] [address] [place], [address] Urea nitrogen [Mass/Vol] 16 mg/dL Normal 4-19 [facility] Comment on above: Performed By: #### L 500.4050, L100.0100, L506.1000, L501.9520, L500.4100 #### [facility] [address] [place], [address] CBC-Complete Blood Cnt No Di ffon 12-06-2024 Erythrocyte distribution width (RBC) [Ratio] 17.7 % High 11.6-14.6 [facility] Comment on above: Performed By: #### L 500.4050, L100.0100, L506.1000, L501.9520, L500.4100 #### [facility] [address] [place], [address] Hematocrit (Bld) [Volume fraction] 31.9 % Low 37-47 [facility] Comment on above: Performed By: #### L 500.4050, L100.0100, L506.1000, L501.9520, L500.4100 #### [facility] [address] [place], [address] Hemoglobin (Bld) [Mass/Vol] 9.5 g/dL Low 12.0-15.0 [facility] Comment on above: Performed By: #### L 500.4050, L100.0100, L506.1000, L501.9520, L500.4100 #### [facility] [address] [place], [address] MCH (RBC) [Entitic mass] 24.7 pg Low 27.0-32.0 [facility] Comment on above: Performed By: #### L 500.4050, L100.0100, L506.1000, L501.9520, L500.4100 #### [facility] [address] [place], [address] MCHC (RBC) [Mass/Vol] 29.8 g/dL Low 32-36 [facility] Comment on above: Performed By: #### L 500.4050, L100.0100, L506.1000, L501.9520, L500.4100 #### [facility] [address] [place], [address] MCV (RBC) [Entitic vol] 83.1 fL Normal 81-99 [facility] Comment on above: Performed By: #### L 500.4050, L100.0100, L506.1000, L501.9520, L500.4100 #### [facility] [address] [place], [address] Platelet mean volume (Bld) [Entitic vol] 10.1 fL Normal 6.2-12.0 [facility] Comment on above: Performed By: #### L 500.4050, L100.0100, L506.1000, L501.9520, L500.4100 #### [facility] [address] [place], [address] Platelets (Bld) [#/Vol] 225 10*3/uL Normal 150-450 [facility] Comment on above: Performed By: #### L 500.4050, L100.0100, L506.1000, L501.9520, L500.4100 #### [facility] [address] [place], [address] RBC (Bld) [#/Vol] 3.84 10*6/uL Low 4.2-5.4 [facility] Comment on above: Performed By: #### L 500.4050, L100.0100, L506.1000, L501.9520, L500.4100 #### [facility] [address] [place], [address] RDW SD 49.1 fl High 35.1-43.9 [facility] Comment on above: Performed By: #### L 500.4050, L100.0100, L506.1000, L501.9520, L500.4100 #### [facility] [address] [place], [address] WBC (Bld) [#/Vol] 5.3 10*3/uL Normal 4.4-11.0 [facility] Comment on above: Performed By: #### L 500.4050, L100.0100, L506.1000, L501.9520, L500.4100 #### [facility] [address] [place], [address] Carbon dioxide, total [Moles /volume] in Central venous bloodOrdered By: Tonya Cortez on 12-06-2024 CO2 [Moles/Vol] 24.1 mmol/L 21.0-32.0 [facility] Chloride assayOrdered By: Colleen Cortez on 12-06-2024 Chloride [Moles/Vol] 105 mmol/L 98-[address] [facility] Erythrocyte distribution wid th ratioOrdered By: Tonya Cortez on 12-06-2024 Erythrocyte distribution width (RBC) [Ratio] 17.7 % High 11.6-14.6 [facility] Erythrocyte distribution wid th standard deviationOrdered By: Tonya Cortez on 12-06-2024 Erythrocyte distribution width (RBC) [Ratio] 49.1 fl High 35.1-43.9 [facility] Glomerular filtration rate ( GFR) estimation/1.73 sq m using serum, plasma, or whole bOrdered By: Tonya Cortez on 12-06-2024 GFR/1.73 sq M.predicted among non-blacks MDRD (S/P/Bld) [Vol rate/Area] 99 mL/min/{1.73_m2} >60 [facility] Comment on above: mL/min/1.73m2 CKD-EP I Creatinine Equation (2020) Hematocrit Auto (Bld) [Volum e fraction]Ordered By: Tonya Cortez on 12-06-2024 Hematocrit (Bld) [Volume fraction] 31.9 % Low 37-47 [facility] Hemoglobin measurementOrdere d By: Tonya Cortez on 12-06-2024 Hemoglobin (Bld) [Mass/Vol] 9.5 g/dL Low 12.0-15.0 [facility] MCV (mean corpuscular volume ) determinationOrdered By: Tonya Cortez on 12-06-2024 MCV (RBC) [Entitic vol] 83.1 fL 81-99 [facility] MR/POSTOP.ANEon 12-06-2024 MR/POSTOP[facility] Medical Records Department [address] [place] [address] Anesthesia Postop Eval I 12/06/24 1632 MR#: [id number] Acct: [id number] Name: TORSTEN COLINDRES Rep #: [id number] : 1940 84 From: Farida Villalobos CRNA PCP: Dr. Leandro Lua MD Status:ADM IN Y Race: C Location: [place] [address] Anesthesia: Postop Eval I Current Vital Signs Temperature: 97.5 F Pulse Rate: 67 Blood Pressure: 125/74 Respiratory Rate: 18 Pulse Ox: 95 Assessment Airway patent: Yes Spontaneous unlabored respirations: Yes nausea: No Vomiting: No Anesthesia Complication: No Fluid Hydration Crystalloid volume administer (ml): 1,500 Total IV fluid infused: 1,500 Progress Note Anesthesia document: Postop Eval 1 completed: Yes 12/06/24 163 Date Farida Villalobos RE ETCHER Cosigner Signature: Date CC: Signed Normal [facility]/[id number] 12-06-[address] Medical Records Department [address] [place] [address] Anesthesia Postop Eval II 12/06/24 1732 MR#: [id number] Acct: [id number] Name: TORSTEN COLINDRES Rep #: [id number] : 1940 84 From: Von Falcon MD PCP: Dr. Leandro Lua MD Status:ADM IN Y Race: C Location: [address] Anesthesia Postop Eval I Sum Postop Eval Completion status Anesthesia document: Postop Eval 1 completed: Yes Anesthesia Postop Eval I Summary Anesthesia Postop Eval I Summary: Anesthesia Postop Eval I: Assessment Summary Airway patent Yes 12/06/24 16:32 [email or web address] Spontaneous unlabored Yes 12/06/24 16:32 [email or web address] respirations Mental status Awake 11/29/24 16:13 nausea No 12/06/24 16:32 [email or web address] Vomiting No 12/06/24 16:32 [email or web address] Anesthesia Postop Eval I: Fluid Summary Crystalloid volume administer 1,500 12/06/24 16:32 [email or web address] (ml) Colloids volume administered ( ml) Blood Product volume administered (ml) Total IV fluid infused 1,500 12/06/24 16:32 [email or web address] Anesthesia Postop Eval I: Summary Notes Anesthesia Complication No 12/06/24 16:32 [email or web address] Anesthesia Complication Comment: Post-operative progress note Anesthesia: Postop Eval II Evaluation Mental status: Awake Pain Level: 2 nausea: No Vomiting: No 12/06/24 1732 Date Von Mercado Signature: Date CC: Signed Normal [facility] Mean corpuscular hemoglobin (MCH) determinationOrdered By: Tonya Cortez on 12-06-2024 MCH (RBC) [Entitic mass] 24.7 pg Low 27.0-32.0 [facility] Mean corpuscular hemoglobin concentration (MCHC) determinationOrdered By: Tonya Cortez on 12-06-2024 MCHC (RBC) [Mass/Vol] 29.8 g/dL Low 32-36 [facility] Mean platelet volume determi nationOrdered By: Tonya Cortez on 12-06-2024 Platelet mean volume (Bld) [Entitic vol] 10.1 fL 6.2-12.0 [facility] Operative Reporton Operative Report [facility] Medical Records Department [address] [place] [address] Operative Report 12/06/24 1708 MR#: [id number] Acct: [id number] Name: TORSTEN COLINDRES Rep #: [id number] : 1940 84 From: Haile Ramirez MD PCP: Dr. Leandro Lua MD Status:ADM IN Location: [facility] FN953-1 Problems Associated Problem List Diagnoses (1) Collapse of lumbar vertebra: (2) Age-related osteoporosis with current pathological fracture, unspecified site, initial encounter for fracture: (3) Disease of bone and joint: Operative Report (Standard) Operative Information Date of Procedure: 12/06/24 Pre-Operative Diagnosis: L1 compression fracture Post-Operative Diagnosis: L1 compression fracture Surgery/Procedure Performed: L1 kyphoplasty control clerk food and beverage: No Type of Anesthesia: General RN Documented [...] pressure of 200 PSI, allowing for partial oriental orthodox of vertebral height without compromising vertebral wall [...] Surgical Findings: n/a Complications Complications: No 12/06/24 4 Cosigner Signature (if applicable): CC: Dr. Eleonora Sharp MD; Dr. Tonya Cortez DO; Dr. Haile Davis MD; Dr. Haile Ramirez MD; Dr. Nestor Amado MD; Dr. Leandro Lua MD Signed Normal [facility] Platelet countOrdered By: Colleen Cortez on 12-06-2024 Platelets (Bld) [#/Vol] 225 10*3/uL 150-450 [facility] Potassium measurement (mass/ volume)Ordered By: Tonya Cortez on 12-06-2024 Potassium (Unsp spec) [Mass/Vol] 3.3 mmol/L 3.3-5.1 [facility] RBC Auto (Bld) [#/Vol]Ordere d By: Tonya Cortez on 12-06-2024 RBC (Bld) [#/Vol] 3.84 10*6/uL Low 4.2-5.4 [facility] Serum creatinine measurement (mass/volume)Ordered By: Tonya Cortez on 12-06-2024 Creatinine [Mass/Vol] 0.37 mg/dL Low 0.70-1.20 [facility] Serum glucose measurement (m ass/volume)Ordered By: Tonya Cortez on 12-06-2024 Glucose [Mass/Vol] 114 mg/dL High 70-99 [facility] Serum or plasma calcium ashley urement (mass/volume)Ordered By: Tonya Cortez on 12-06-2024 Calcium [Mass/Vol] 8.5 mg/dL 7.6-11.0 [facility] Serum or plasma urea nitroge n measurement (mass/volume)Ordered By: Tonya Cortez on 12-06-2024 Urea nitrogen [Mass/Vol] 16 mg/dL 4-19 [facility] Sodium levelOrdered By: Megan Cortez on 12-06-2024 Sodium [Moles/Vol] 138 mmol/L 133-145 [facility] Spine 1 View Any Levelon Spine 1 View Any Level [facility] Imaging Services [address] [place], [place] [address] Spine 1 View Any Level MR#: [id number] Acct: [id number] Name: TORSTEN COLINDRES Rep #: [id number] : 1940 F 84 From: Nestor Abreu PCP: Dr. Leandro Lua MD Status: ADM IN Study: Spine 1 View Any Level Date of Exam: 12/06/24 Exam# [id number] Ordering Dr: Haile Ramirez MD PROCEDURE: SPINE [...] Haile Ramirez MD; Dr. Leandro Lua MD Client Experience Manager: Signed Normal [facility] White blood cell (WBC) count Ordered By: Tonya Cortez on 12-06-2024 WBC (Bld) [#/Vol] 5.3 10*3/uL 4.4-11.0 [facility] Consultation - Infectious Dx on 12-05-2024 Consultation - Infectious Dx [facility] Medical Records Department [address] [place] [address] Consultation - Infectious Dx 12/05/24 1038 MR#: [id number] Acct: [id number] Name: TORSTEN COLINDRES Rep #: [id number] : 1940 84 From: Nestor Amado MD PCP: Dr. Leandro Lua MD Status:ADM IN Location: [place] LU756-1 Assessment Plan Assessment/Plan (1) Intractable low back [...] performed and neg except as noted above. [facility] History Hemorrhoids Cancer Arthritis Hypertension GERD [...] CC: Dr. Leandro Lua MD Signed Normal [facility] Urine Cultureon 12-05-2024 [facility] Copy of report sent to Infection Control Printer [id number] 12/05/24 Melva MACEDO. Urine Culture RESULTS CALLED TO LOUISA Cordero 12/05/24 0749 Graciela Spann. REPORT READ BACK . ESBL Escherichia coli [place] Count >100,000 MARKER ESBL producing OrganismA MARKER ESBL producing OrganismA Amikacin Islt MAXI 4 S Ampicillin Islt MAXI >=32 Ampicillin+Sulbac Islt MAXI 4 S Cefepime Islt MAXI 16 R Eravacycline Islt MAXI <=0.12 S cefTRIAXone Islt MAXI >=64 R Ciprofloxacin Islt MAXI >=4 R B-Lactamase Extended Susc Islt POS Gentamicin Islt MAXI <=1 S Imipenem Islt AMXI <=0.25 S levoFLOXacin Islt MAXI >=8 R Meropenem Islt MAXI <=0.25 S Nitrofurantoin Islt MAXI <=16 S Pip+Tazo Islt MAXI <=4 S Tobramycin Islt MAXI <=1 S TMP SMX Islt MAXI <=20 S Normal [facility] Comment on above: Performed By: #### M 100.2200, L400.0001 ####[facility] [address] [place], [place], [id number] Absolute lymphocyte countOrd ered By: Haile Davis on 12-04-2024 Lymphocytes Auto (Unsp spec) [#/Vol] 1.14 10*3/uL 0.83-4.51 [facility] Absolute neutrophil countOrd ered By: Haile Quigleypatience on 12-04-2024 Neutrophils (Bld) [#/Vol] 4.1 10*3/uL 2.0-7.7 [facility] Automated lymphocyte count a s percentage of total leukocytesOrdered By: Haile Erika on 12-04-2024 Lymphocytes/100 WBC Auto (Unsp spec) 19.1 % 19- [facility] Basic Metabolic Profile (BMP )on 12-04-2024 BUN/CRE 42.5 RATIO High 10- [facility] Comment on above: Performed By: #### L 500.4050, L100.0100, L506.1000, L501.9520, L500.4100 #### [facility] Laboratory [address] [place], [address] Calcium [Mass/Vol] 8.7 mg/dL Normal 7.6-11.0 [facility] Comment on above: Performed By: #### L 500.4050, L100.0100, L506.1000, L501.9520, L500.4100 #### [facility] [address] [place], [address] Chloride [Moles/Vol] 103 mmol/L Normal 98-[address] [facility] Comment on above: Performed By: #### L 500.4050, L100.0100, L506.1000, L501.9520, L500.4100 #### [facility] [address] [place], [address] CO2 [Moles/Vol] 25.5 mmol/L Normal 21.0-32.0 [facility] Comment on above: Performed By: #### L 500.4050, L100.0100, L506.1000, L501.9520, L500.4100 #### [facility] [address] [place], [address] Creatinine [Mass/Vol] 0.45 mg/dL Low 0.70-1.20 [facility] Comment on above: Performed By: #### L 500.4050, L100.0100, L506.1000, L501.9520, L500.4100 #### [facility] [address] [place], [address] ECRCL 59.61 ml/min Normal 50-250 [facility] Comment on above: Performed By: #### L 500.4050, L100.0100, L506.1000, L501.9520, L500.4100 #### [facility] [address] [place], [address] GAP 8 Normal 5-15 [facility] Comment on above: Performed By: #### L 500.4050, L100.0100, L506.1000, L501.9520, L500.4100 #### [facility] [address] [place], [address] GFR/1.73 sq M.predicted among non-blacks MDRD (S/P/Bld) [Vol rate/Area] 95 mL/min/{1.73_m2} Normal >60 [facility] Comment on above: Result Comment: mL/m in/1.73m2 CKD-EPI Creatinine Equation (2020) Performed By: #### L 500.4050, L100.0100, L506.1000, L501.9520, L500.4100 #### [facility] [address] [place], [address] Glucose [Mass/Vol] 116 mg/dL High 70-99 [facility] Comment on above: Performed By: #### L 500.4050, L100.0100, L506.1000, L501.9520, L500.4100 #### [facility] [address] [place], [address] Potassium [Moles/Vol] 4.6 mmol/L Normal 3.3-5.1 [facility] Comment on above: Performed By: #### L 500.4050, L100.0100, L506.1000, L501.9520, L500.4100 #### [facility] [address] [place], [address] Sodium [Moles/Vol] 137 mmol/L Normal 133-145 [facility] Comment on above: Performed By: #### L 500.4050, L100.0100, L506.1000, L501.9520, L500.4100 #### [facility] [address] [place], [address] Urea nitrogen [Mass/Vol] 19 mg/dL Normal 4-19 [facility] Comment on above: Performed By: #### L 500.4050, L100.0100, L506.1000, L501.9520, L500.4100 #### [facility] [address] [place], [address] Basophil percentageOrdered B y: Haile Davis on 12-04-2024 Basophils/100 WBC (Bld) 0.8 % 0-1 [facility] CBC W/Diff, Automatedon 04 Absolute Lymph 1.14 X10 3/uL Normal 0.83-4.51 [facility] Comment on above: Performed By: #### L 500.4050, L100.0100, L506.1000, L501.9520, L500.4100 #### [facility] [address] [place], [address] Absolute Neut 4.1 X10 3/uL Normal 2.0-7.7 [facility] Comment on above: Performed By: #### L 500.4050, L100.0100, L506.1000, L501.9520, L500.4100 #### [facility] [address] [place], [address] Basophils/100 WBC (Bld) 0.8 % Normal 0-1 [facility] Comment on above: Performed By: #### L 500.4050, L100.0100, L506.1000, L501.9520, L500.4100 #### [facility] [address] [place], [address] Eosinophils/100 WBC (Bld) 2.9 % Normal 0-5 [facility] Comment on above: Performed By: #### L 500.4050, L100.0100, L506.1000, L501.9520, L500.4100 #### [facility] [address] [place], [address] Erythrocyte distribution width (RBC) [Ratio] 17.2 % High 11.6-14.6 [facility] Comment on above: Performed By: #### L 500.4050, L100.0100, L506.1000, L501.9520, L500.4100 #### [facility] [address] [place], [address] Hematocrit (Bld) [Volume fraction] 32.8 % Low 37-47 [facility] Comment on above: Performed By: #### L 500.4050, L100.0100, L506.1000, L501.9520, L500.4100 #### [facility] [address] [place], [address] Hemoglobin (Bld) [Mass/Vol] 9.7 g/dL Low 12.0-15.0 [facility] Comment on above: Performed By: #### L 500.4050, L100.0100, L506.1000, L501.9520, L500.4100 #### [facility] [address] [place], [address] IG% 1.500 High 0.0-0.9 [facility] Comment on above: Result Comment: IG% - Immature Granulocytes (promyelocytes, myelocytes and metamyelocytes) > 1% indicates that a LEFT SHIFT is Present. Performed By: #### L 500.4050, L100.0100, L506.1000, L501.9520, L500.4100 #### [facility] [address] [place], [address] Lymphocytes/100 WBC (Bld) 19.1 % Normal 19-41 [facility] Comment on above: Performed By: #### L 500.4050, L100.0100, L506.1000, L501.9520, L500.4100 #### [facility] [address] [place], [address] MCH (RBC) [Entitic mass] 24.7 pg Low 27.0-32.0 [facility] Comment on above: Performed By: #### L 500.4050, L100.0100, L506.1000, L501.9520, L500.4100 #### [facility] [address] [place], [address] MCHC (RBC) [Mass/Vol] 29.6 g/dL Low 32-36 [facility] Comment on above: Performed By: #### L 500.4050, L100.0100, L506.1000, L501.9520, L500.4100 #### [facility] [address] [place], [address] MCV (RBC) [Entitic vol] 83.5 fL Normal 81-99 [facility] Comment on above: Performed By: #### L 500.4050, L100.0100, L506.1000, L501.9520, L500.4100 #### [facility] [address] [place], [address] Monocytes/100 WBC (Bld) 7.6 % Normal 0-10 [facility] Comment on above: Performed By: #### L 500.4050, L100.0100, L506.1000, L501.9520, L500.4100 #### [facility] [address] [place], [address] Neutrophils/100 WBC (Bld) 68.1 % Normal 47-70 [facility] Comment on above: Performed By: #### L 500.4050, L100.0100, L506.1000, L501.9520, L500.4100 #### [facility] [address] [place], [address] Nucleated RBC (Bld) [#/Vol] 0 10*3/uL Normal 0-5 [facility] Comment on above: Performed By: #### L 500.4050, L100.0100, L506.1000, L501.9520, L500.4100 #### [facility] [address] [place], [address] Platelet mean volume (Bld) [Entitic vol] 10.1 fL Normal 6.2-12.0 [facility] Comment on above: Performed By: #### L 500.4050, L100.0100, L506.1000, L501.9520, L500.4100 #### [facility] [address] [place], [address] Platelets (Bld) [#/Vol] 235 10*3/uL Normal 150-450 [facility] Comment on above: Performed By: #### L 500.4050, L100.0100, L506.1000, L501.9520, L500.4100 #### [facility] [address] [place], [address] RBC (Bld) [#/Vol] 3.93 10*6/uL Low 4.2-5.4 [facility] Comment on above: Performed By: #### L 500.4050, L100.0100, L506.1000, L501.9520, L500.4100 #### [facility] [address] [place], [address] RDW SD 48.8 fl High 35.1-43.9 [facility] Comment on above: Performed By: #### L 500.4050, L100.0100, L506.1000, L501.9520, L500.4100 #### [facility] [address] [place], [address] WBC (Bld) [#/Vol] 6.0 10*3/uL Normal 4.4-11.0 [facility] Comment on above: Performed By: #### L 500.4050, L100.0100, L506.1000, L501.9520, L500.4100 #### [facility] [address] [place], [address] Eosinophil percentageOrdered By: Haile Davis on 12-04-2024 Eosinophils/100 WBC (Bld) 2.9 % 0-5 [facility] Immature granulocytes/100 WB C Auto (Bld)Ordered By: Haile Davis on 12-04-2024 Immature granulocytes/100 WBC (Bld) 1.500 % High 0.0-0.9 [facility] Comment on above: IG% - Immature Granu locytes (promyelocytes, myelocytes and metamyelocytes) > 1% indicates that a LEFT SHIFT is Present. Monocyte percentageOrdered B y: Haile Davis on 12-04-2024 Monocytes/100 WBC (Bld) 7.6 % 0-10 [facility] Neutrophil percentageOrdered By: Haile Davis on 12-04-2024 Neutrophils/100 WBC (Bld) 68.1 % 47-70 [facility] Nucleated red blood cell per centageOrdered By: Haile Davis on 12-04-2024 Nucleated RBC/100 WBC (Bld) [Ratio] 0 % 0-5 [facility] Bilirubin Test strip Ql (U)O rdered By: Haile Davis on 12-03-2024 Bilirubin Ql (U) Negative Negative [facility] Ketones Test strip Ql (U)Ord ered By: Haile Davis on 12-03-2024 Ketones Ql (U) Negative Negative [facility] Microscopic analysis of urin e for red blood cells (RBC)Ordered By: Haile Davis on 12-03-2024 Microscopic analysis of urine for red blood cells (RBC) 0 SEEN /hpf 0-5 [facility] Mucus LM Ql (Urine sed)Order ed By: Haile Davis on 12-03-2024 Mucus Ql (Urine sed) 0 SEEN /hpf [facility] Nitrite Test strip Ql (U)Ord ered By: Haile Davis on 12-03-2024 Nitrite Ql (U) Negative Negative [facility] Protein Test strip Ql (U)Ord ered By: Haile Davis on 12-03-2024 Protein Ql (U) 100 mg/dl High Negative [facility] Squamous epithelial cells de tection in urine sediment by light microscopyOrdered By: Haile Davis on 12-03-2024 Epithelial cells.squamous LM Ql (Urine sed) 0 SEEN /hpf 5-10 [facility] Urinalysis, Completeon 12-03 BACTERIA 4+ /hpf Normal None Seen [facility] Comment on above: Order Comment: CLEAN CATCH Performed By: #### M 100.2200, L400.0001 ####[facility] [address] [place], [address] WBC >100 SEEN Normal 0-5 [facility] Comment on above: Order Comment: CLEAN CATCH Result Comment: Micr oscopic field is filled. Other elements may be obscured. Performed By: #### M 100.2200, L400.0001 ####[facility] [address] [place], [address] EPI,SQUAMOUS 0 SEEN Normal 5-10 [facility] Comment on above: Order Comment: CLEAN CATCH Performed By: #### M 100.2200, L400.0001 ####[facility] [address] [place], [address] Mucus Ql (Urine sed) 0 SEEN Normal [facility] Comment on above: Order Comment: CLEAN CATCH Performed By: #### M 100.2200, L400.0001 ####[facility] [address] [place], [address] RBC 0 SEEN Normal 0-5 [facility] Comment on above: Order Comment: CLEAN CATCH Performed By: #### M 100.2200, L400.0001 ####[facility] [address] [place], [address] Urine clarityOrdered By: Feliberto Davis on 12-03-2024 Clarity (U) Cloudy Clear [facility] Urine color determinationOrd ered By: Haile Davis on 12-03-2024 Color (U) Yellow Yellow [facility] Urine cultureOrdered By: Feliberto Davis on 12-03-2024 Bacteria identified Cx Nom (U) ESBL Escherichia coli Abnormal [facility] Urine glucose detectionOrder ed By: Haile Davis on 12-03-2024 Glucose Ql (U) Normal mg/dl Normal [facility] Urine leukocyte esterase det ection by dipstickOrdered By: Haile Davis on 12-03-2024 Leukocyte esterase Test strip Ql (U) 500 /ul High Negative [facility] Urine pHOrdered By: Haile Davis on 12-03-2024 pH (U) 6.0 [pH] 5.0 - 8.0 [facility] Urine sediment bacteria coun t by microscopy (number/high power field)Ordered By: Haile Davis on 12-03-2024 Bacteria LM.HPF (Urine sed) [#/Area] 4 /[HPF] None Seen [facility] Urine specific gravity measu rementOrdered By: Haile Davis on 12-03-2024 Specific gravity (U) [Rel density] 1.020 1.002-1.030 [facility] Urine urobilinogen measureme ntOrdered By: Haile Davis on 12-03-2024 Urobilinogen Ql (U) Normal mg/dl Normal [facility] White blood cell countOrdere d By: Haile Erika on 12-03-2024 White blood cell count >100 SEEN /hpf 0-5 [facility] Comment on above: Microscopic field is filled. Other elements may be obscured. Basic Metabolic Profile (BMP )on 12-01-2024 BUN/CRE 31.5 RATIO High 10-20 [facility] Comment on above: Performed By: #### L 500.4050, L100.0100, L506.1000, L501.9520, L500.4100 #### [facility] [address] [place], [address] Calcium [Mass/Vol] 8.5 mg/dL Normal 7.6-11.0 [facility] Comment on above: Performed By: #### L 500.4050, L100.0100, L506.1000, L501.9520, L500.4100 #### [facility] [address] [place], [address] Chloride [Moles/Vol] 103 mmol/L Normal 98-[address] [facility] Comment on above: Performed By: #### L 500.4050, L100.0100, L506.1000, L501.9520, L500.4100 #### [facility] [address] [place], [address] CO2 [Moles/Vol] 22.7 mmol/L Normal 21.0-32.0 [facility] Comment on above: Performed By: #### L 500.4050, L100.0100, L506.1000, L501.9520, L500.4100 #### [facility] [address] [place], [address] Creatinine [Mass/Vol] 0.41 mg/dL Low 0.70-1.20 [facility] Comment on above: Performed By: #### L 500.4050, L100.0100, L506.1000, L501.9520, L500.4100 #### [facility] [address] [place], [address] ECRCL 59.61 ml/min Normal 50-250 [facility] Comment on above: Performed By: #### L 500.4050, L100.0100, L506.1000, L501.9520, L500.4100 #### [facility] [address] [place], [address] GAP 9 Normal 5-15 [facility] Comment on above: Performed By: #### L 500.4050, L100.0100, L506.1000, L501.9520, L500.4100 #### [facility] [address] [place], [address] GFR/1.73 sq M.predicted among non-blacks MDRD (S/P/Bld) [Vol rate/Area] 97 mL/min/{1.73_m2} Normal >60 [facility] Comment on above: Result Comment: mL/m in/1.73m2 CKD-EPI Creatinine Equation (2020) Performed By: #### L 500.4050, L100.0100, L506.1000, L501.9520, L500.4100 #### [facility] [address] [place], [address] Glucose [Mass/Vol] 91 mg/dL Normal 70-99 [facility] Comment on above: Performed By: #### L 500.4050, L100.0100, L506.1000, L501.9520, L500.4100 #### [facility] [address] [place], [address] Potassium [Moles/Vol] 4.0 mmol/L Normal 3.3-5.1 [facility] Comment on above: Result Comment: Hemo lysis present, Results??could be affected. ?? Performed By: #### L 500.4050, L100.0100, L506.1000, L501.9520, L500.4100 #### [facility] [address] [place], [address] Sodium [Moles/Vol] 136 mmol/L Normal 133-145 [facility] Comment on above: Performed By: #### L 500.4050, L100.0100, L506.1000, L501.9520, L500.4100 #### [facility] [address] [place], [address] Urea nitrogen [Mass/Vol] 13 mg/dL Normal 4-19 [facility] Comment on above: Performed By: #### L 500.4050, L100.0100, L506.1000, L501.9520, L500.4100 #### [facility] [address] [place], [address] CBC W/Diff, Automatedon 11-14 Absolute Lymph 0.97 X10 3/uL Normal 0.83-4.51 [facility] Comment on above: Performed By: #### L 500.4050, L100.0100, L506.1000, L501.9520, L500.4100 #### [facility] [address] [place], [address] Absolute Neut 5.3 X10 3/uL Normal 2.0-7.7 [facility] Comment on above: Performed By: #### L 500.4050, L100.0100, L506.1000, L501.9520, L500.4100 #### [facility] [address] [place], [address] Basophils/100 WBC (Bld) 0.6 % Normal 0-1 [facility] Comment on above: Performed By: #### L 500.4050, L100.0100, L506.1000, L501.9520, L500.4100 #### [facility] [address] [place], [address] Eosinophils/100 WBC (Bld) 2.4 % Normal 0-5 [facility] Comment on above: Performed By: #### L 500.4050, L100.0100, L506.1000, L501.9520, L500.4100 #### [facility] [address] [place], [address] Erythrocyte distribution width (RBC) [Ratio] 16.0 % High 11.6-14.6 [facility] Comment on above: Performed By: #### L 500.4050, L100.0100, L506.1000, L501.9520, L500.4100 #### [facility] [address] [place], [address] Hematocrit (Bld) [Volume fraction] 33.1 % Low 37-47 [facility] Comment on above: Performed By: #### L 500.4050, L100.0100, L506.1000, L501.9520, L500.4100 #### [facility] [address] [place], [address] Hemoglobin (Bld) [Mass/Vol] 10.1 g/dL Low 12.0-15.0 [facility] Comment on above: Performed By: #### L 500.4050, L100.0100, L506.1000, L501.9520, L500.4100 #### [facility] [address] [place], [address] IG% 1.100 High 0.0-0.9 [facility] Comment on above: Result Comment: IG% - Immature Granulocytes (promyelocytes, myelocytes and metamyelocytes) > 1% indicates that a LEFT SHIFT is Present. Performed By: #### L 500.4050, L100.0100, L506.1000, L501.9520, L500.4100 #### [facility] [address] [place], [address] Lymphocytes/100 WBC (Bld) 13.6 % Low 19-41 [facility] Comment on above: Performed By: #### L 500.4050, L100.0100, L506.1000, L501.9520, L500.4100 #### [facility] [address] [place], [address] MCH (RBC) [Entitic mass] 24.8 pg Low 27.0-32.0 [facility] Comment on above: Performed By: #### L 500.4050, L100.0100, L506.1000, L501.9520, L500.4100 #### [facility] [address] [place], [address] MCHC (RBC) [Mass/Vol] 30.5 g/dL Low 32-36 [facility] Comment on above: Performed By: #### L 500.4050, L100.0100, L506.1000, L501.9520, L500.4100 #### [facility] [address] [place], [address] MCV (RBC) [Entitic vol] 81.1 fL Normal 81-99 [facility] Comment on above: Performed By: #### L 500.4050, L100.0100, L506.1000, L501.9520, L500.4100 #### [facility] [address] [place], [address] Monocytes/100 WBC (Bld) 8.2 % Normal 0-10 [facility] Comment on above: Performed By: #### L 500.4050, L100.0100, L506.1000, L501.9520, L500.4100 #### [facility] [address] [place], [address] Neutrophils/100 WBC (Bld) 74.1 % High 47-70 [facility] Comment on above: Performed By: #### L 500.4050, L100.0100, L506.1000, L501.9520, L500.4100 #### [facility] [address] [place], [address] Nucleated RBC (Bld) [#/Vol] 0 10*3/uL Normal 0-5 [facility] Comment on above: Performed By: #### L 500.4050, L100.0100, L506.1000, L501.9520, L500.4100 #### [facility] [address] [place], [address] Platelet mean volume (Bld) [Entitic vol] 10.3 fL Normal 6.2-12.0 [facility] Comment on above: Performed By: #### L 500.4050, L100.0100, L506.1000, L501.9520, L500.4100 #### [facility] [address] [place], [address] Platelets (Bld) [#/Vol] 220 10*3/uL Normal 150-450 [facility] Comment on above: Performed By: #### L 500.4050, L100.0100, L506.1000, L501.9520, L500.4100 #### [facility] [address] [place], [address] RBC (Bld) [#/Vol] 4.08 10*6/uL Low 4.2-5.4 [facility] Comment on above: Performed By: #### L 500.4050, L100.0100, L506.1000, L501.9520, L500.4100 #### [facility] [address] [place], [address] RDW SD 46.3 fl High 35.1-43.9 [facility] Comment on above: Performed By: #### L 500.4050, L100.0100, L506.1000, L501.9520, L500.4100 #### [facility] [address] [place], [address] WBC (Bld) [#/Vol] 7.1 10*3/uL Normal 4.4-11.0 [facility] Comment on above: Performed By: #### L 500.4050, L100.0100, L506.1000, L501.9520, L500.4100 #### [facility] [address] [place], [address] 12 Lead EKGon 11-29-2024 12 Lead EKG [facility] [address] [place] [address] 12 Lead EKG 11/29/24 1442 MR#: [id number] Acct: [id number] Name: TORSTEN COLINDRES Rep #: [id number] : 1940 84 From: Manju Martinez MD Attending Dr: Dr. Tonya Cortez DO Status: ADM I N Ordering Dr: Von Falcon MD Date: 11/29/24 Location: [facility] Sex: F C Admitted: 12/02/24 Test Reason [...] Otherwise normal ECG Confirmed by Manju Martinez ([id number]), editorial manager JHONY HOLLIDAY ([id number]) on 12/04/2024 8:50:00 AM Referred By: ERIKA Confirmed By: Manju Martinez 12/04/24 0850 Date Manju Martinez MD CC: Dr. Von Falcon MD; Dr. Tonya Cortez DO; Dr. Leandro Lua MD Signed Normal [facility] Basic Metabolic Profile (BMP )on 11-29-2024 BUN/CRE 26.8 RATIO High 10-20 [facility] Comment on above: Performed By: #### L 100.0100, L500.2500 ####[facility] [address] [place], [address] Calcium [Mass/Vol] 8.2 mg/dL Normal 7.6-11.0 [facility] Comment on above: Performed By: #### L 100.0100, L500.2500 ####[facility] [address] [place], [address] Chloride [Moles/Vol] 102 mmol/L Normal 98-[address] [facility] Comment on above: Performed By: #### L 100.0100, L500.2500 ####[facility] [address] [place], [address] CO2 [Moles/Vol] 26.0 mmol/L Normal 21.0-32.0 [facility] Comment on above: Performed By: #### L 100.0100, L500.2500 ####[facility] [address] [place], [address] Creatinine [Mass/Vol] 0.44 mg/dL Low 0.70-1.20 [facility] Comment on above: Performed By: #### L 100.0100, L500.2500 ####[facility] [address] [place], [address] ECRCL 60.79 ml/min Normal 50-250 [facility] Comment on above: Performed By: #### L 100.0100, L500.2500 ####[facility] [address] [place], [address] GAP 8 Normal 5-15 [facility] Comment on above: Performed By: #### L 100.0100, L500.2500 ####[facility] [address] [place], [address] GFR/1.73 sq M.predicted among non-blacks MDRD (S/P/Bld) [Vol rate/Area] 95 mL/min/{1.73_m2} Normal >60 [facility] Comment on above: Result Comment: mL/m in/1.73m2 CKD-EPI Creatinine Equation (2020) Performed By: #### L 100.0100, L500.2500 ####[facility] [address] [place], [address] Glucose [Mass/Vol] 112 mg/dL High 70-99 [facility] Comment on above: Performed By: #### L 100.0100, L500.2500 ####[facility] [address] [place], [address] Potassium [Moles/Vol] 3.6 mmol/L Normal 3.3-5.1 [facility] Comment on above: Performed By: #### L 100.0100, L500.2500 ####[facility] [address] [place], [address] Sodium [Moles/Vol] 136 mmol/L Normal 133-145 [facility] Comment on above: Performed By: #### L 100.0100, L500.2500 ####[facility] [address] [place], [address] Urea nitrogen [Mass/Vol] 12 mg/dL Normal 4-19 [facility] Comment on above: Performed By: #### L 100.0100, L500.2500 ####[facility] [address] [place], [address] CBC W/Diff, Automatedon 11-14 Absolute Lymph 0.98 X10 3/uL Normal 0.83-4.51 [facility] Comment on above: Performed By: #### L 100.0100, L500.2500 ####[facility] [address] [place], [address] Absolute Neut 4.1 X10 3/uL Normal 2.0-7.7 [facility] Comment on above: Performed By: #### L 100.0100, L500.2500 ####[facility] [address] [place], [address] Basophils/100 WBC (Bld) 0.5 % Normal 0-1 [facility] Comment on above: Performed By: #### L 100.0100, L500.2500 ####[facility] [address] [place], [address] Eosinophils/100 WBC (Bld) 4.0 % Normal 0-5 [facility] Comment on above: Performed By: #### L 100.0100, L500.2500 ####[facility] [facility] [address] [place], [address] Erythrocyte distribution width (RBC) [Ratio] 15.9 % High 11.6-14.6 [facility] Comment on above: Performed By: #### L 100.0100, L500.2500 ####[facility] [address] [place], [address] Hematocrit (Bld) [Volume fraction] 30.5 % Low 37-47 [facility] Comment on above: Performed By: #### L 100.0100, L500.2500 ####[facility] [address] [place], [address] Hemoglobin (Bld) [Mass/Vol] 9.4 g/dL Low 12.0-15.0 [facility] Comment on above: Performed By: #### L 100.0100, L500.2500 ####[facility] [address] [place], [address] IG% 0.800 Normal 0.0-0.9 [facility] Comment on above: Result Comment: IG% - Immature Granulocytes (promyelocytes, myelocytes and metamyelocytes) > 1% indicates that a LEFT SHIFT is Present. Performed By: #### L 100.0100, L500.2500 ####[facility] [address] [place], [address] Lymphocytes/100 WBC (Bld) 16.3 % Low 19-41 [facility] Comment on above: Performed By: #### L 100.0100, L500.2500 ####[facility] [address] [place], [address] MCH (RBC) [Entitic mass] 24.4 pg Low 27.0-32.0 [facility] Comment on above: Performed By: #### L 100.0100, L500.2500 ####[facility] [address] [place], [address] MCHC (RBC) [Mass/Vol] 30.8 g/dL Low 32-36 [facility] Comment on above: Performed By: #### L 100.0100, L500.2500 ####[facility] [address] [place], [address] MCV (RBC) [Entitic vol] 79.2 fL Low 81-99 [facility] Comment on above: Performed By: #### L 100.0100, L500.2500 ####[facility] [address] [place], [address] Monocytes/100 WBC (Bld) 11.1 % High 0-10 [facility] Comment on above: Performed By: #### L 100.0100, L500.2500 ####[facility] [address] [place], [address] Neutrophils/100 WBC (Bld) 67.3 % Normal 47-70 [facility] Comment on above: Performed By: #### L 100.0100, L500.2500 ####[facility] [address] [place], [address] Nucleated RBC (Bld) [#/Vol] 0 10*3/uL Normal 0-5 [facility] Comment on above: Performed By: #### L 100.0100, L500.2500 ####[facility] [address] [place], [address] Platelet mean volume (Bld) [Entitic vol] 9.7 fL Normal 6.2-12.0 [facility] Comment on above: Performed By: #### L 100.0100, L500.2500 ####[facility] [address] [place], [address] Platelets (Bld) [#/Vol] 231 10*3/uL Normal 150-450 [facility] Comment on above: Performed By: #### L 100.0100, L500.2500 ####[facility] [address] [place], [address] RBC (Bld) [#/Vol] 3.85 10*6/uL Low 4.2-5.4 [facility] Comment on above: Performed By: #### L 100.0100, L500.2500 ####[facility] [address] [place], [address] RDW SD 45.0 fl High 35.1-43.9 [facility] Comment on above: Performed By: #### L 100.0100, L500.2500 ####[facility] [address] [place], [address] WBC (Bld) [#/Vol] 6.0 10*3/uL Normal 4.4-11.0 [facility] Comment on above: Performed By: #### L 100.0100, L500.2500 ####[facility] [address] [place], [address] MR/POSTOP.ANEon 11-29-2024 MR/POSTOP.ANE [facility] Medical Records Department [address] [place] [address] Anesthesia Postop Eval I 11/29/24 1438 MR#: [id number] Acct: [id number] Name: TORSTEN COLINDRES Rep #: [id number] : 1940 84 From: Roxana Lorenzo RE ETCHER PCP: Dr. Leandro Lua MD Status:ADM LLOYD Y Race: C Location: [place] [address] Anesthesia: Postop Eval I Current Vital Signs [...] completed: Yes 11/29/24 1439 Date Roxana Lorenzo RE ETCHER Cosigner Signature: Date CC: Signed Normal [facility] MR/BBLKIVIB0um 11-29-[address] Medical Records Department [address] [place] [address] Anesthesia Postop Eval II 11/29/24 1611 MR#: [id number] Acct: [id number] Name: TORSTEN COLINDRES Rep #: [id number] : 1940 84 From: Von Falcon MD PCP: Dr. Leandro Lua MD Status:ADM LLOYD Y Race: C Location: [place] [address]1 Anesthesia Postop Eval I Sum Postop Eval Completion status Anesthesia document: Postop Eval 1 completed: Yes Anesthesia Postop Eval I Summary Anesthesia Postop Eval I Summary: Anesthesia Postop Eval I: Assessment Summary Airway patent Yes 11/29/24 14:39 RE [email or web address].JDEF Spontaneous unlabored Yes 11/29/24 14:39 RE [email or web address].JDEF respirations Mental status Awake 11/29/24 14:39 RE [email or web address].JDEF nausea No 11/29/24 14:39 RE [email or web address].JDEF Vomiting No 11/29/24 14:39 RE [email or web address].JDEF Anesthesia Postop Eval I: Fluid Summary Crystalloid volume administer 300 11/29/24 14:39 RE [email or web address].JDEF (ml) Colloids volume administered ( ml) Blood Product volume administered (ml) Total IV fluid infused 300 11/29/24 14:39 RE [email or web address].JDEF Anesthesia Postop Eval I: Summary Notes Anesthesia Complication No 11/29/24 14:39 RE [email or web address].JDEF Anesthesia Complication Comment: Post-operative progress note Anesthesia: [...] is going to manage the care on [facility] 3 11/29/24 1613 Date Von Mercado Signature: Date CC: Signed Normal [facility] Magnesiumon 11-29-2024 Magnesium [Mass/Vol] 1.6 mg/dL Normal 1.5-2.[address] [facility] Comment on above: Performed By: #### L 501.5200 ####[facility] [address] [place] [place], [address] Magnesium measurement (mass/ volume)Ordered By: Haile Davis on 11-29-2024 Magnesium (Unsp spec) [Mass/Vol] 1.6 mg/dL 1.5-2.2 [facility] Urinalysis, Completeon 11-28 RBC 0-5 SEEN Normal 0-5 [facility] Comment on above: Order Comment: COLLE CTOR TO SPECIFY Performed By: #### L 500.4050, L100.0100, L506.1000, L501.9520, L500.4100 #### [facility] Laboratory [address] [place], [address] BACTERIA 1+ /hpf Normal None Seen [facility] Comment on above: Order Comment: DARLIN CTOR TO SPECIFY Performed By: #### L 500.4050, L100.0100, L506.1000, L501.9520, L500.4100 #### [facility] [address] [place], [address] WBC 25-50 SEEN Normal 0-5 [facility] Comment on above: Order Comment: DARLIN CTOR TO SPECIFY Performed By: #### L 500.4050, L100.0100, L506.1000, L501.9520, L500.4100 #### [facility] [address] [place], [address] EPI,SQUAMOUS 0-5 SEEN Normal 5-10 [facility] Comment on above: Order Comment: COLLE CTOR TO SPECIFY Performed By: #### L 500.4050, L100.0100, L506.1000, L501.9520, L500.4100 #### [facility] [address] [place], [address] Mucus Ql (Urine sed) 0 SEEN Normal [facility] Comment on above: Order Comment: COLLE CTOR TO SPECIFY Performed By: #### L 500.4050, L100.0100, L506.1000, L501.9520, L500.4100 #### [facility] [address] [place], [address] Basic Metabolic Profile (BMP )on 11-27-2024 BUN/CRE 34.3 RATIO High 10-20 [facility] Comment on above: Performed By: #### L 500.4050, L100.0100, L506.1000, L501.9520, L500.4100 #### [facility] [address] [place], [address] Calcium [Mass/Vol] 8.3 mg/dL Normal 7.6-11.0 [facility] Comment on above: Performed By: #### L 500.4050, L100.0100, L506.1000, L501.9520, L500.4100 #### [facility] [address] [place], [address] Chloride [Moles/Vol] 102 mmol/L Normal 98-[address] [facility] Comment on above: Performed By: #### L 500.4050, L100.0100, L506.1000, L501.9520, L500.4100 #### [facility] [address] [place], [address] CO2 [Moles/Vol] 25.3 mmol/L Normal 21.0-32.0 [facility] Comment on above: Performed By: #### L 500.4050, L100.0100, L506.1000, L501.9520, L500.4100 #### [facility] [address] [place], [address] Creatinine [Mass/Vol] 0.45 mg/dL Low 0.70-1.20 [facility] Comment on above: Performed By: #### L 500.4050, L100.0100, L506.1000, L501.9520, L500.4100 #### [facility] [address] [place], [address] ECRCL 60.79 ml/min Normal 50-250 [facility] Comment on above: Performed By: #### L 500.4050, L100.0100, L506.1000, L501.9520, L500.4100 #### [facility] [address] [place], [address] GAP 8 Normal 5-15 [facility] Comment on above: Performed By: #### L 500.4050, L100.0100, L506.1000, L501.9520, L500.4100 #### [facility] [address] [place], [address] GFR/1.73 sq M.predicted among non-blacks MDRD (S/P/Bld) [Vol rate/Area] 95 mL/min/{1.73_m2} Normal >60 [facility] Comment on above: Result Comment: mL/m in/1.73m2 CKD-EPI Creatinine Equation (2020) Performed By: #### L 500.4050, L100.0100, L506.1000, L501.9520, L500.4100 #### [facility] [address] [place], [address] Glucose [Mass/Vol] 126 mg/dL High 70-99 [facility] Comment on above: Performed By: #### L 500.4050, L100.0100, L506.1000, L501.9520, L500.4100 #### [facility] [address] [place], [address] Potassium [Moles/Vol] 3.4 mmol/L Normal 3.3-5.1 [facility] Comment on above: Performed By: #### L 500.4050, L100.0100, L506.1000, L501.9520, L500.4100 #### [facility] [address] [place], [address] Sodium [Moles/Vol] 135 mmol/L Normal 133-145 [facility] Comment on above: Performed By: #### L 500.4050, L100.0100, L506.1000, L501.9520, L500.4100 #### [facility] [address] [place], [address] Urea nitrogen [Mass/Vol] 15 mg/dL Normal 4-19 [facility] Comment on above: Performed By: #### L 500.4050, L100.0100, L506.1000, L501.9520, L500.4100 #### [facility] [address] [place], [address] CBC-Complete Blood Cnt No Di ffon 11-27-2024 Erythrocyte distribution width (RBC) [Ratio] 15.5 % High 11.6-14.6 [facility] Comment on above: Performed By: #### L 500.4050, L100.0100, L506.1000, L501.9520, L500.4100 #### [facility] [address] [place], [address] Hematocrit (Bld) [Volume fraction] 30.3 % Low 37-47 [facility] Comment on above: Performed By: #### L 500.4050, L100.0100, L506.1000, L501.9520, L500.4100 #### [facility] [address] [place], [address] Hemoglobin (Bld) [Mass/Vol] 9.3 g/dL Low 12.0-15.0 [facility] Comment on above: Performed By: #### L 500.4050, L100.0100, L506.1000, L501.9520, L500.4100 #### [facility] [address] [place], [address] MCH (RBC) [Entitic mass] 24.6 pg Low 27.0-32.0 [facility] Comment on above: Performed By: #### L 500.4050, L100.0100, L506.1000, L501.9520, L500.4100 #### [facility] [address] [place], [address] MCHC (RBC) [Mass/Vol] 30.7 g/dL Low 32-36 [facility] Comment on above: Performed By: #### L 500.4050, L100.0100, L506.1000, L501.9520, L500.4100 #### [facility] [address] [place], [address] MCV (RBC) [Entitic vol] 80.2 fL Low 81-99 [facility] Comment on above: Performed By: #### L 500.4050, L100.0100, L506.1000, L501.9520, L500.4100 #### [facility] [address] [place], [address] Platelet mean volume (Bld) [Entitic vol] 9.7 fL Normal 6.2-12.0 [facility] Comment on above: Performed By: #### L 500.4050, L100.0100, L506.1000, L501.9520, L500.4100 #### [facility] [address] [place], [address] Platelets (Bld) [#/Vol] 234 10*3/uL Normal 150-450 [facility] Comment on above: Performed By: #### L 500.4050, L100.0100, L506.1000, L501.9520, L500.4100 #### [facility] [address] [place], [address] RBC (Bld) [#/Vol] 3.78 10*6/uL Low 4.2-5.4 [facility] Comment on above: Performed By: #### L 500.4050, L100.0100, L506.1000, L501.9520, L500.4100 #### [facility] [address] [place], [address] RDW SD 45.0 fl High 35.1-43.9 [facility] Comment on above: Performed By: #### L 500.4050, L100.0100, L506.1000, L501.9520, L500.4100 #### [facility] [address] [place], [address] WBC (Bld) [#/Vol] 5.7 10*3/uL Normal 4.4-11.0 [facility] Comment on above: Performed By: #### L 500.4050, L100.0100, L506.1000, L501.9520, L500.4100 #### [facility] [address] [place], [address] Ferritinon 11-27-2024 Ferritin [Mass/Vol] 19 ng/mL Low 22-378 [facility] Comment on above: Performed By: #### L 503.6030, L503.6550 ####[facility] [address] [place], [address] Iron measurement (mass/mass) Ordered By: Haile Davis on 11-27-2024 Iron (Unsp spec) [Mass/Mass] 21 ug/dL Low 50-170 [facility] Iron+Iron Binding Capacityon 11-27-2024 Iron [Mass/Vol] 21 ug/dL Low 50-170 [facility] Comment on above: Performed By: #### L 503.6030, L503.6550 ####[facility] [address] [place], [address] IRON SATURATION 6.0 Low 13-59 [facility] Comment on above: Performed By: #### L 503.6030, L503.6550 ####[facility] [address] [place], [address] TIBC 357 ug/dL Normal 250-450 [facility] Comment on above: Performed By: #### L 503.6030, L503.6550 ####[facility] [address] [place], [address] UIBC 336 ug/dL Normal 228-428 [facility] Comment on above: Performed By: #### L 503.6030, L503.6550 ####[facility] [address] [place], [address] No Panel InformationOrdered By: Haile Davis on 11-27-2024 Unsaturated Iron Binding Capacity 336 ug/dL 228-428 [facility] Serum or plasma ferritin ludmila surement (mass/volume)Ordered By: Haile Davis on 11-27-2024 Ferritin [Mass/Vol] 19 ng/mL Low 22-378 [facility] Serum or plasma iron saturat ion measurement (mass fraction)Ordered By: Haile Davis on 11-27-2024 Iron saturation [Mass fraction] 6.0 % Low 13-59 [facility] Spine Lumbar (Routine)on Spine Lumbar (Routine) [facility] Imaging Services [address] [place] [address] Spine Lumbar (Routine) MR#: [id number] Acct: [id number] Name: TORSTEN COLINDRES Rep #: [id number] : 1940 F 84 From: Ron Lane MD PCP: Dr. Leandro Lua MD Status: ADM LLOYD Study: Spine Lumbar (Routine) Date of Exam: 11/27/24 Exam# [id number] Ordering Dr: Haile Ramirez MD PROCEDURE: SPINE [...] disc disease as described above. Reading Location: [facility] CC: Dr. Haile Ramirez MD; Dr. Leandro Lua MD Client Experience Manager: Signed Normal [facility] Spine Thoracic (Routine)on 11-27-2024 Spine Thoracic (Routine) [facility] Imaging Services [address] [place] [id number] Spine Thoracic (Routine) MR#: [id number] Acct: [id number] Name: TORSTEN COLINDRES Rep #: [id number] : 1940 F 84 From: Ron Lane MD PCP: Dr. Leandro Lua MD Status: ADM LLOYD Study: Spine Thoracic (Routine) Date of Exam: Exam# [id number] Ordering Dr: Haile Ramirez MD PROCEDURE: SPINE [...] spinal stenosis or cord compression. Reading Location: [facility] CC: Dr. Haile Ramirez MD; Dr. Leandro Lua MD Client Experience Manager: Signed Normal [facility] Bilirubin, totalOrdered By: Tonya Cortez on 11-26-2024 Bilirubin [Mass/Vol] 0.37 mg/dL 0.00-1.[address] [facility] CBC W/Diff, Automatedon 11-14 Absolute Lymph 1.13 X10 3/uL Normal 0.83-4.51 [facility] Comment on above: Performed By: #### L 500.4050, L100.0100, L506.1000, L501.9520, L500.4100 #### [facility] Laboratory [address] [place], [address] Absolute Neut 3.5 X10 3/uL Normal 2.0-7.7 [facility] Comment on above: Performed By: #### L 500.4050, L100.0100, L506.1000, L501.9520, L500.4100 #### [facility] [address] [place], [address] Basophils/100 WBC (Bld) 0.4 % Normal 0-1 [facility] Comment on above: Performed By: #### L 500.4050, L100.0100, L506.1000, L501.9520, L500.4100 #### [facility] [address] [place], [address] Eosinophils/100 WBC (Bld) 2.2 % Normal 0-5 [facility] Comment on above: Performed By: #### L 500.4050, L100.0100, L506.1000, L501.9520, L500.4100 #### [facility] [address] [place], [address] Erythrocyte distribution width (RBC) [Ratio] 15.5 % High 11.6-14.6 [facility] Comment on above: Performed By: #### L 500.4050, L100.0100, L506.1000, L501.9520, L500.4100 #### [facility] [address] [place], [address] Hematocrit (Bld) [Volume fraction] 29.8 % Low 37-47 [facility] Comment on above: Performed By: #### L 500.4050, L100.0100, L506.1000, L501.9520, L500.4100 #### [facility] [address] [place], [address] Hemoglobin (Bld) [Mass/Vol] 9.0 g/dL Low 12.0-15.0 [facility] Comment on above: Performed By: #### L 500.4050, L100.0100, L506.1000, L501.9520, L500.4100 #### [facility] [address] [place], [address] IG% 0.900 Normal 0.0-0.9 [facility] Comment on above: Result Comment: IG% - Immature Granulocytes (promyelocytes, myelocytes and metamyelocytes) > 1% indicates that a LEFT SHIFT is Present. Performed By: #### L 500.4050, L100.0100, L506.1000, L501.9520, L500.4100 #### [facility] Laboratory [address] [place], [address] Lymphocytes/100 WBC (Bld) 21.1 % Normal 19-41 [facility] Comment on above: Performed By: #### L 500.4050, L100.0100, L506.1000, L501.9520, L500.4100 #### [facility] [address] [place], [address] MCH (RBC) [Entitic mass] 24.4 pg Low 27.0-32.0 [facility] Comment on above: Performed By: #### L 500.4050, L100.0100, L506.1000, L501.9520, L500.4100 #### [facility] [address] [place], [address] MCHC (RBC) [Mass/Vol] 30.2 g/dL Low 32-36 [facility] Comment on above: Performed By: #### L 500.4050, L100.0100, L506.1000, L501.9520, L500.4100 #### [facility] [address] [place], [address] MCV (RBC) [Entitic vol] 80.8 fL Low 81-99 [facility] Comment on above: Performed By: #### L 500.4050, L100.0100, L506.1000, L501.9520, L500.4100 #### [facility] [address] [place], [address] Monocytes/100 WBC (Bld) 10.4 % High 0-10 [facility] Comment on above: Performed By: #### L 500.4050, L100.0100, L506.1000, L501.9520, L500.4100 #### [facility] [address] [place], [address] Neutrophils/100 WBC (Bld) 65.0 % Normal 47-70 [facility] Comment on above: Performed By: #### L 500.4050, L100.0100, L506.1000, L501.9520, L500.4100 #### [facility] [address] [place], [address] Nucleated RBC (Bld) [#/Vol] 0 10*3/uL Normal 0-5 [facility] Comment on above: Performed By: #### L 500.4050, L100.0100, L506.1000, L501.9520, L500.4100 #### [facility] [address] [place], [address] Platelet mean volume (Bld) [Entitic vol] 10.1 fL Normal 6.2-12.0 [facility] Comment on above: Performed By: #### L 500.4050, L100.0100, L506.1000, L501.9520, L500.4100 #### [facility] [address] [place], [address] Platelets (Bld) [#/Vol] 244 10*3/uL Normal 150-450 [facility] Comment on above: Performed By: #### L 500.4050, L100.0100, L506.1000, L501.9520, L500.4100 #### [facility] [address] [place], [address] RBC (Bld) [#/Vol] 3.69 10*6/uL Low 4.2-5.4 [facility] Comment on above: Performed By: #### L 500.4050, L100.0100, L506.1000, L501.9520, L500.4100 #### [facility] [address] [place], [address] RDW SD 45.6 fl High 35.1-43.9 [facility] Comment on above: Performed By: #### L 500.4050, L100.0100, L506.1000, L501.9520, L500.4100 #### [facility] [address] [place], [address] WBC (Bld) [#/Vol] 5.4 10*3/uL Normal 4.4-11.0 [facility] Comment on above: Performed By: #### L 500.4050, L100.0100, L506.1000, L501.9520, L500.4100 #### [facility] [address] [place], [address] Comprehensive Metabolic Prof ilon 11-26-2024 Albumin [Mass/Vol] 3.0 g/dL Low 3.4-4.8 [facility] Comment on above: Performed By: #### L 500.4050, L100.0100, L506.1000, L501.9520, L500.4100 #### [facility] [address] [place], [address] Albumin/Globulin [Mass ratio] 1.6 {ratio} Normal 0.9-2.4 [facility] Comment on above: Performed By: #### L 500.4050, L100.0100, L506.1000, L501.9520, L500.4100 #### [facility] [address] [place], [address] ALK PHOS 51 U/L Normal 35-104 [facility] Comment on above: Performed By: #### L 500.4050, L100.0100, L506.1000, L501.9520, L500.4100 #### [facility] [address] [place], [address] ALT [Catalytic activity/Vol] 15 U/L Normal <=34 [facility] Comment on above: Performed By: #### L 500.4050, L100.0100, L506.1000, L501.9520, L500.4100 #### [facility] [address] [place], [address] AST [Catalytic activity/Vol] 18 U/L Normal <=31 [facility] Comment on above: Performed By: #### L 500.4050, L100.0100, L506.1000, L501.9520, L500.4100 #### [facility] [address] [place], [address] Bilirubin [Mass/Vol] 0.37 mg/dL Normal 0.00-1.[address] [facility] Comment on above: Performed By: #### L 500.4050, L100.0100, L506.1000, L501.9520, L500.4100 #### [facility] [address] [place], [address] BUN/CRE 49.1 RATIO High 10-20 [facility] Comment on above: Performed By: #### L 500.4050, L100.0100, L506.1000, L501.9520, L500.4100 #### [facility] [address] [place], [address] Calcium [Mass/Vol] 8.2 mg/dL Normal 7.6-11.0 [facility] Comment on above: Performed By: #### L 500.4050, L100.0100, L506.1000, L501.9520, L500.4100 #### [facility] [address] [place], [address] Chloride [Moles/Vol] 102 mmol/L Normal 98-[address] [facility] Comment on above: Performed By: #### L 500.4050, L100.0100, L506.1000, L501.9520, L500.4100 #### [facility] [address] [place], [address] CO2 [Moles/Vol] 24.4 mmol/L Normal 21.0-32.0 [facility] Comment on above: Performed By: #### L 500.4050, L100.0100, L506.1000, L501.9520, L500.4100 #### [facility] [address] [place], [address] Creatinine [Mass/Vol] 0.43 mg/dL Low 0.70-1.20 [facility] Comment on above: Performed By: #### L 500.4050, L100.0100, L506.1000, L501.9520, L500.4100 #### [facility] [address] [place], [address] ECRCL 60.79 ml/min Normal 50-250 [facility] Comment on above: Performed By: #### L 500.4050, L100.0100, L506.1000, L501.9520, L500.4100 #### [facility] [address] [place], [address] GAP 9 Normal 5-15 [facility] Comment on above: Performed By: #### L 500.4050, L100.0100, L506.1000, L501.9520, L500.4100 #### [facility] [address] [place], [address] GFR/1.73 sq M.predicted among non-blacks MDRD (S/P/Bld) [Vol rate/Area] 96 mL/min/{1.73_m2} Normal >60 [facility] Comment on above: Result Comment: mL/m in/1.73m2 CKD-EPI Creatinine Equation (2020) Performed By: #### L 500.4050, L100.0100, L506.1000, L501.9520, L500.4100 #### [facility] [address] [place], [address] Globulin (S) [Mass/Vol] 1.9 g/dL Low 2.2-4.2 [facility] Comment on above: Performed By: #### L 500.4050, L100.0100, L506.1000, L501.9520, L500.4100 #### [facility] [address] [place], [address] Glucose [Mass/Vol] 116 mg/dL High 70-99 [facility] Comment on above: Performed By: #### L 500.4050, L100.0100, L506.1000, L501.9520, L500.4100 #### [facility] [address] [place], [address] Potassium [Moles/Vol] 3.6 mmol/L Normal 3.3-5.1 [facility] Comment on above: Performed By: #### L 500.4050, L100.0100, L506.1000, L501.9520, L500.4100 #### [facility] [address] [place], [address] Sodium [Moles/Vol] 135 mmol/L Normal 133-145 [facility] Comment on above: Performed By: #### L 500.4050, L100.0100, L506.1000, L501.9520, L500.4100 #### [facility] [address] [place], [address] T PROT 4.9 g/dL Low 5.9-8.4 [facility] Comment on above: Performed By: #### L 500.4050, L100.0100, L506.1000, L501.9520, L500.4100 #### [facility] [address] [place], [address] Urea nitrogen [Mass/Vol] 21 mg/dL High 4-19 [facility] Comment on above: Performed By: #### L 500.4050, L100.0100, L506.1000, L501.9520, L500.4100 #### [facility] [address] [place], [address] L503.7505on 11-26-2024 Natriuretic peptide B (Bld) [Mass/Vol] 911 pg/mL Normal <=1800 [facility] Comment on above: Result Comment: Hear t Failure Unlikely: < 300 pg/mL Heart Failure Likely < 50 Years: > 450 pg/mL 50-75 Years: > 900 pg/mL >75 Years: > 1800 pg/mL Performed By: #### L 500.4050, L100.0100, L506.1000, L501.9520, L500.4100 #### [facility] [address] [place], [address] Laboratory - Chemistry and C hemistry - challengeOrdered By: Tonya Cortez on 11-26-2024 AST [Catalytic activity/Vol] 18 U/L <32 [facility] Magnesiumon 11-26-2024 Magnesium [Mass/Vol] 2.0 mg/dL Normal 1.5-2.[address] [facility] Comment on above: Performed By: #### L 500.4050, L100.0100, L506.1000, L501.9520, L500.4100 #### [facility] [address] [place], [address] Natriuretic peptide.B prohor mele N-Terminal [Mass/volume] in Serum or PlasmaOrdered By: Tonya Cortez on 11-26-2024 Natriuretic peptide.B prohormone N-Terminal [Mass/Vol] 911 pg/mL <1800 [facility] Comment on above: Heart Failure Unlike ly: < 300 pg/mLHeart Failure Likely< 50 Years: > 450 pg/mL50-75 Years: > 900 pg/mL>75 Years: > 1800 pg/mL Phosphoruson 11-26-2024 Phosphate [Mass/Vol] 3.5 mg/dL Normal 2.7-4.[address] [facility] Comment on above: Performed By: #### L 500.4050, L100.0100, L506.1000, L501.9520, L500.4100 #### [facility] [address] [place], [place], [id number] Serum globulin measurementOr dered By: Tonya Cortez on 11-26-2024 Globulin (S) [Mass/Vol] 1.9 g/dL Low 2.2-4.2 [facility] Serum or plasma alanine zapata otransferase (ALT) measurementOrdered By: Tonya Cortez on 11-26-2024 ALT [Catalytic activity/Vol] 15 U/L <35 [facility] Serum or plasma albumin ashley urement (mass/volume)Ordered By: Tonya Cortez on 11-26-2024 Albumin [Mass/Vol] 3.0 g/dL Low 3.4-4.8 [facility] Serum or plasma albumin/glob ulin mass ratioOrdered By: Tonya Cortez on 11-26-2024 Albumin/Globulin [Mass ratio] 1.6 {ratio} 0.9-2.4 [facility] Serum or plasma alkaline isaiah sphatase measurementOrdered By: Tonya Cortez on 11-26-2024 ALP [Catalytic activity/Vol] 51 U/L 35-104 [facility] TSH DL <= 0.005 mIU/L QnOrde red By: Tonya Cortez on 11-26-2024 TSH Qn 2.950 uIU/mL 0.300-4.200 [facility] Thyroid Stim Hormone (TSH)on 11-26-2024 TSH 2.950 uIU/mL Normal 0.300-4.200 [facility] Comment on above: Performed By: #### L 500.4050, L100.0100, L506.1000, L501.9520, L500.4100 #### [facility] [address] [place], [place], [id number] Total proteinOrdered By: Ellen Cortez on 11-26-2024 Protein [Mass/Vol] 4.9 g/dL Low 5.9-8.4 [facility] Absolute neutrophil countOrd ered By: Lashawn Crocker on 11-25-2024 Neutrophils (Bld) [#/Vol] 5.1 10*3/uL 2.0-7.7 [facility] Anion gap in Serum or Plasma Ordered By: Lashawn Crocker on 11-25-2024 Anion gap [Moles/Vol] 10 mmol/L 5-15 [facility] BUN/creatinine ratioOrdered By: Lashawn Crocker on 11-25-2024 Urea nitrogen/Creatinine [Mass ratio] 53.3 mg/mg High 10- [facility] Basic Metabolic Profile (BMP )on 11-25-2024 BUN/CRE 53.3 RATIO High - [facility] Comment on above: Performed By: #### L 500.4050, L100.0100, L506.1000, L501.9520, L500.4100 #### [facility] [address] [place], [address] Calcium [Mass/Vol] 8.9 mg/dL Normal 7.6-11.0 [facility] Comment on above: Performed By: #### L 500.4050, L100.0100, L506.1000, L501.9520, L500.4100 #### [facility] [address] [place], [address] Chloride [Moles/Vol] 100 mmol/L Normal 98-[address] [facility] Comment on above: Performed By: #### L 500.4050, L100.0100, L506.1000, L501.9520, L500.4100 #### [facility] [address] [place], [address] CO2 [Moles/Vol] 25.5 mmol/L Normal 21.0-32.0 [facility] Comment on above: Performed By: #### L 500.4050, L100.0100, L506.1000, L501.9520, L500.4100 #### [facility] [address] [place], [address] Creatinine [Mass/Vol] 0.50 mg/dL Low 0.70-1.20 [facility] Comment on above: Performed By: #### L 500.4050, L100.0100, L506.1000, L501.9520, L500.4100 #### [facility] [address] [place], [address] GAP 10 Normal 5-15 [facility] Comment on above: Performed By: #### L 500.4050, L100.0100, L506.1000, L501.9520, L500.4100 #### [facility] [address] [place], [address] GFR/1.73 sq M.predicted among non-blacks MDRD (S/P/Bld) [Vol rate/Area] 92 mL/min/{1.73_m2} Normal >60 [facility] Comment on above: Result Comment: mL/m in/1.73m2 CKD-EPI Creatinine Equation (2020) Performed By: #### L 500.4050, L100.0100, L506.1000, L501.9520, L500.4100 #### [facility] [address] [place], [address] Glucose [Mass/Vol] 120 mg/dL High 70-99 [facility] Comment on above: Performed By: #### L 500.4050, L100.0100, L506.1000, L501.9520, L500.4100 #### [facility] [address] [place], [address] Potassium [Moles/Vol] 4.1 mmol/L Normal 3.3-5.1 [facility] Comment on above: Performed By: #### L 500.4050, L100.0100, L506.1000, L501.9520, L500.4100 #### [facility] [address] [place], [address] Sodium [Moles/Vol] 135 mmol/L Normal 133-145 [facility] Comment on above: Performed By: #### L 500.4050, L100.0100, L506.1000, L501.9520, L500.4100 #### [facility] [address] [place], [address] Urea nitrogen [Mass/Vol] 27 mg/dL High 4-19 [facility] Comment on above: Performed By: #### L 500.4050, L100.0100, L506.1000, L501.9520, L500.4100 #### [facility] [address] [place], [address] Basophil percentageOrdered B y: Lashawn Crocker on 11-25-2024 Basophils/100 WBC (Bld) 0.3 % 0-1 [facility] CBC W/Diff, Automatedon 11-14 Absolute Lymph 1.16 X10 3/uL Normal 0.83-4.51 [facility] Comment on above: Performed By: #### L 500.4050, L100.0100, L506.1000, L501.9520, L500.4100 #### [facility] [address], [address] Absolute Neut 5.1 X10 3/uL Normal 2.0-7.7 [facility] Comment on above: Performed By: #### L 500.4050, L100.0100, L506.1000, L501.9520, L500.4100 #### [facility] [address] [place], [address] Basophils/100 WBC (Bld) 0.3 % Normal 0-1 [facility] Comment on above: Performed By: #### L 500.4050, L100.0100, L506.1000, L501.9520, L500.4100 #### [facility] [address] [place], [address] Eosinophils/100 WBC (Bld) 0.6 % Normal 0-5 [facility] Comment on above: Performed By: #### L 500.4050, L100.0100, L506.1000, L501.9520, L500.4100 #### [facility] [address] [place], [address] Erythrocyte distribution width (RBC) [Ratio] 15.4 % High 11.6-14.6 [facility] Comment on above: Performed By: #### L 500.4050, L100.0100, L506.1000, L501.9520, L500.4100 #### [facility] [address] [place], [address] Hematocrit (Bld) [Volume fraction] 34.1 % Low 37-47 [facility] Comment on above: Performed By: #### L 500.4050, L100.0100, L506.1000, L501.9520, L500.4100 #### [facility] [address] [place], [address] Hemoglobin (Bld) [Mass/Vol] 10.4 g/dL Low 12.0-15.0 [facility] Comment on above: Performed By: #### L 500.4050, L100.0100, L506.1000, L501.9520, L500.4100 #### [facility] [address] [place], [address] IG% 0.700 Normal 0.0-0.9 [facility] Comment on above: Result Comment: IG% - Immature Granulocytes (promyelocytes, myelocytes and metamyelocytes) > 1% indicates that a LEFT SHIFT is Present. Performed By: #### L 500.4050, L100.0100, L506.1000, L501.9520, L500.4100 #### [facility] [address] [place], [address] Lymphocytes/100 WBC (Bld) 16.1 % Low 19-41 [facility] Comment on above: Performed By: #### L 500.4050, L100.0100, L506.1000, L501.9520, L500.4100 #### [facility] [address] [place], [address] MCH (RBC) [Entitic mass] 24.3 pg Low 27.0-32.0 [facility] Comment on above: Performed By: #### L 500.4050, L100.0100, L506.1000, L501.9520, L500.4100 #### [facility] [address] [place], [address] MCHC (RBC) [Mass/Vol] 30.5 g/dL Low 32-36 [facility] Comment on above: Performed By: #### L 500.4050, L100.0100, L506.1000, L501.9520, L500.4100 #### [facility] [address] [place], [address] MCV (RBC) [Entitic vol] 79.7 fL Low 81-99 [facility] Comment on above: Performed By: #### L 500.4050, L100.0100, L506.1000, L501.9520, L500.4100 #### [facility] [address] [place], [address] Monocytes/100 WBC (Bld) 11.8 % High 0-10 [facility] Comment on above: Performed By: #### L 500.4050, L100.0100, L506.1000, L501.9520, L500.4100 #### [facility] [address] [place], [address] Neutrophils/100 WBC (Bld) 70.5 % High 47-70 [facility] Comment on above: Performed By: #### L 500.4050, L100.0100, L506.1000, L501.9520, L500.4100 #### [facility] [address] [place], [address] Nucleated RBC (Bld) [#/Vol] 0 10*3/uL Normal 0-5 [facility] Comment on above: Performed By: #### L 500.4050, L100.0100, L506.1000, L501.9520, L500.4100 #### [facility] [address] [place], [address] Platelet mean volume (Bld) [Entitic vol] 9.8 fL Normal 6.2-12.0 [facility] Comment on above: Performed By: #### L 500.4050, L100.0100, L506.1000, L501.9520, L500.4100 #### [facility] [address] [place], [address] Platelets (Bld) [#/Vol] 305 10*3/uL Normal 150-450 [facility] Comment on above: Performed By: #### L 500.4050, L100.0100, L506.1000, L501.9520, L500.4100 #### [facility] [address] [place], [address] RBC (Bld) [#/Vol] 4.28 10*6/uL Normal 4.2-5.4 [facility] Comment on above: Performed By: #### L 500.4050, L100.0100, L506.1000, L501.9520, L500.4100 #### [facility] [address] [place], [address] RDW SD 44.2 fl High 35.1-43.9 [facility] Comment on above: Performed By: #### L 500.4050, L100.0100, L506.1000, L501.9520, L500.4100 #### [facility] [address] [place], [address] WBC (Bld) [#/Vol] 7.2 10*3/uL Normal 4.4-11.0 [facility] Comment on above: Performed By: #### L 500.4050, L100.0100, L506.1000, L501.9520, L500.4100 #### [facility] [address] [place], [address] Carbon dioxide, total [Moles /volume] in Central venous bloodOrdered By: Lashawn Crocker on 11-25-2024 CO2 [Moles/Vol] 25.5 mmol/L 21.0-32.0 [facility] Chloride assayOrdered By: Elsa Crocker on 11-25-2024 Chloride [Moles/Vol] 100 mmol/L 98-[address] [facility] Emergency Department Summary on 11-25-2024 Emergency Department Summary [facility] Medical Records Department [address] [place] [address] Emergency Department Summary 11/25/24 MR#: [id number] Acct: [id number] Name: TORSTEN COLINDRES Rep #: [id number] : 1940 84 From: Payam Aldridge MD PCP: Dr. Leandro Lua MD Status:ADM [place]YD Location: [place] [address] HPI History of Present Illness Chief Complaint: [...] No saddle anesthesia or bladder bowel incontinence. [facility] Medical History Arthritis BPPV (benign paroxysmal positional vertigo) Cancer Compression fracture of L1 lumbar vertebra Constipation GERD (gastroesophageal reflux disease) Hemorrhoids Hypertension Home Medications ???Medication ???Instructions ???Recorded ???Last Taken ???Type hydrochlorothiazide 12.5 mg tablet 12.5 mg PO DAILY 03/18/17 14:00 History acetaminophen 500 mg tablet 1,000 mg (2 x 500 mg) PO Q8H PRN 0 04/02/17 Unknown Rx PRN Mild Pain (1-310) meclizine 12.5 mg tablet 12.5 mg PO [...] Room Air (more content not included)... Normal [facility] Eosinophil percentageOrdered By: Lashawn Crocker on 11-25-2024 Eosinophils/100 WBC (Bld) 0.6 % 0-5 [facility] Erythrocyte distribution wid th (RBC) [Ratio]Ordered By: Lashawn Crocker on 11-25-2024 Erythrocyte distribution width (RBC) [Entitic vol] 44.2 fL High 35.1-43.9 [facility] Erythrocyte distribution wid th ratioOrdered By: Lashawn Crocker on 11-25-2024 Erythrocyte distribution width (RBC) [Ratio] 15.4 % High 11.6-14.6 [facility] GFR/1.73 sq M.predicted timothy g non-blacks MDRD (S/P/Bld) [Vol rate/Area]Ordered By: Lashawn Obi on 11-25-2024 Estimated GFR (MDRD) Non-Af Amer 92 >60 [facility] Comment on above: mL/min/1.73m2 CKD-EP I Creatinine Equation (2020) H AND P Exam - Hospitaliston 11-25-2024 H&P Exam - Hospitalist [facility] Medical Records Department [address] [place] [address] H P Exam - Hospitalist 11/25/24 1136 MR#: [id number] Acct: [id number] Name: TORSTEN COLINDRES Rep #: [id number] : 1940 84 From: Tonya Cortez DO PCP: Dr. Leandro Lua MD Status:ADM [place]YD Location: [facility] [id number] HPI - General General Date of Admission: 11/25/24 Date of Service: 11/25/24 Chief Complaint: Intractable back pain HPI Narrative TORSTEN COLINDRES, is a 84 F who presented to the emergency department at [facility] on 11/25/2024 with a chief complaint of [...] findings as previously observed on previous imaging. [facility] Medical History Hemorrhoids Cancer Arthritis Hypertension GERD [...] 09:26 PE) (more content not included)... Normal [facility] Hematocrit Auto (Bld) [Volum e fraction]Ordered By: Lashawn Crocker on 11-25-2024 Hematocrit (Bld) [Volume fraction] 34.1 % Low 37-47 [facility] Hemoglobin measurementOrdere d By: Lashawn Crocker on 11-25-2024 Hemoglobin (Bld) [Mass/Vol] 10.4 g/dL Low 12.0-15.0 [facility] Immature granulocytes/100 WB C Auto (Bld)Ordered By: Lashawn Crocker on 11-25-2024 Immature granulocytes/100 WBC (Bld) 0.700 % 0.0-0.9 [facility] Comment on above: IG% - Immature Granu locytes (promyelocytes, myelocytes and metamyelocytes) > 1% indicates that a LEFT SHIFT is Present. Lumbar Spine 2 or 3 Viewson 11-25-2024 Lumbar Spine 2 or 3 Views [facility] Imaging Services [address] [place] [address] Lumbar Spine 2 or 3 Views MR#: [id number] Acct: [id number] Name: TORSTEN COLINDRES Rep #: [id number] : 1940 F 84 From: Conchis Altamirano nd, MD PCP: Dr. Leandro Lua MD Status: REG ER Study: Lumbar Spine 2 or 3 Views Date of Exam: Exam# [id number] Ordering Dr: Lashawn Crocker PROCEDURE: LUMBAR SPINE [...] CHANGES OF THE LUMBAR SPINE. Reading Location: [facility] CC: Dr. Leandro Lua MD; SHON Uribe Client Experience Manager: Signed Normal [facility] Lymphocytes Auto (Unsp spec) [#/Vol]Ordered By: Lashawn Crocker on 11-25-2024 Lymphocytes (Bld) [#/Vol] 1.16 10*3/uL 0.83-4.51 [facility] Lymphocytes/100 WBC Auto (Un sp spec)Ordered By: Lashawn Crocker on 11-25-2024 Lymphocytes/100 WBC (Bld) 16.1 % Low 19-41 [facility] MCV (mean corpuscular volume ) determinationOrdered By: Lashawn Crocker on 11-25-2024 MCV (RBC) [Entitic vol] 79.7 fL Low 81-99 [facility] Mean corpuscular hemoglobin (MCH) determinationOrdered By: Lashawn Crocker on 11-25-2024 MCH (RBC) [Entitic mass] 24.3 pg Low 27.0-32.0 [facility] Mean corpuscular hemoglobin concentration (MCHC) determinationOrdered By: Lashawn Crocker on 11-25-2024 MCHC (RBC) [Mass/Vol] 30.5 g/dL Low 32-36 [facility] Mean platelet volume determi nationOrdered By: Lashawn Crocker on 11-25-2024 Platelet mean volume (Bld) [Entitic vol] 9.8 fL 6.2-12.0 [facility] Monocyte percentageOrdered B y: Lashawn Crocker on 11-25-2024 Monocytes/100 WBC (Bld) 11.8 % High 0-10 [facility] Neutrophil percentageOrdered By: Lashawn Crocker on 11-25-2024 Neutrophils/100 WBC (Bld) 70.5 % High 47-70 [facility] Nucleated red blood cell per centageOrdered By: Lashawn Crocker on 11-25-2024 Nucleated RBC/100 WBC (Bld) [Ratio] 0 % 0-5 [facility] Platelet countOrdered By: Elsa Crocker on 11-25-2024 Platelets (Bld) [#/Vol] 305 10*3/uL 150-450 [facility] Potassium (Unsp spec) [Mass/ Vol]Ordered By: Lashawn Crocker on 11-25-2024 Potassium [Moles/Vol] 4.1 mmol/L 3.3-5.1 [facility] RBC Auto (Bld) [#/Vol]Ordere d By: Lashawn Crocker on 11-25-2024 RBC (Bld) [#/Vol] 4.28 10*6/uL 4.2-5.4 [facility] Serum creatinine measurement (mass/volume)Ordered By: Lashawn Crocker on 11-25-2024 Creatinine [Mass/Vol] 0.50 mg/dL Low 0.70-1.20 [facility] Serum glucose measurement (m ass/volume)Ordered By: Lashawn Chanarena on 11-25-2024 Glucose [Mass/Vol] 120 mg/dL High 70-99 [facility] Serum or plasma calcium ashley urement (mass/volume)Ordered By: Lashawn Zayasrena on 11-25-2024 Calcium [Mass/Vol] 8.9 mg/dL 7.6-11.0 [facility] Serum or plasma urea nitroge n measurement (mass/volume)Ordered By: Lashawn Zayasrena on 11-25-2024 Urea nitrogen [Mass/Vol] 27 mg/dL High 4-19 [facility] Sodium levelOrdered By: Lashawntanvir Zayasrena on 11-25-2024 Sodium [Moles/Vol] 135 mmol/L 133-145 [facility] Spine Lumbar without Contras ton 11-25-2024 Spine Lumbar without Contrast [facility] [address] [place] [id number] Spine Lumbar without Contrast MR#: [id number] Acct: [id number] Name: TORSTEN COLINDRES Rep #: [id number] : 1940 F 84 From: Conchis Altamirano nd, MD PCP: Dr. Leandro Lua MD Status: REG ER Study: Spine Lumbar without Contrast Date of Exam: Exam# [id number] Ordering Dr: Tonya Cortez DO PROCEDURE: SPINE [...] ACUTE LUMBAR FRACTURE. DEGENERATIVE CHANGES. Reading Location: [id number] CC: Dr. Tonya Cortez DO; Dr. Leandro Lua MD Client Experience Manager: Signed Normal [facility] Venous Duplex US - [facility] 11-25-2024 Venous Duplex US - [facility] [address] [place] [address] Venous Duplex US - [facility] 11/27/24 0800 MR#: [id number] Acct: [id number] Name: TORSTEN COLINDRES Rep #: [id number] : 1940 84 From: Tommie Chowdhury MD [...] was called and/or faxed to M/S 3 inverted block operator. VL/Venous Duplex US - [facility] Interpretation Summary Deep veins of the bilateral lower extremities are patent and compressible segmentally. There is no evidence of bilateral lower extremity deep vein thrombosis. The bilateral great saphenous veins appear patent and compressible segmentally. Ordering Physician: Tonya Cortez Referring Physician: Leandro Lua Chi Performed By: Kishor Conley RVT 11/27/241646 Date Tommie Chowdhury MD CC: Dr. Tonya Cortez DO; Dr. Haile Davis MD; Dr. Leandro Lua MD Date Dictated: 11/27/24 0800 Date Transcribed: 11/27/241646 Client Experience Manager: Signed Normal [facility] Vitamin D,25 Hydroxyon 11-25 Vitamin D 25-OH 36.3 ng/mL Normal 30-100 [facility] Comment on above: Result Comment: Elizabeth min D Status Deficiency: <20 ng/mL (50nmol/L) Insufficiency: 20-30 ng/mL (50-75 nmol/L) Sufficiency: 30-100 ng/mL (75-250 nmol/L) Toxicity: >100 ng/mL (>250 nmol/L) Performed By: #### L 506.1001 ####[facility] [id number] [place], [address] White blood cell (WBC) count Ordered By: Lashawn Crocker on 11-25-2024 WBC (Bld) [#/Vol] 7.2 10*3/uL 4.4-11.0 [facility] Absolute lymphocyte countOrd ered By: Leandro Lua on 11-21-2024 Lymphocytes Auto (Unsp spec) [#/Vol] 1.07 10*3/uL 0.83-4.51 [facility] Absolute neutrophil countOrd ered By: Leandro Lua on 11-21-2024 Neutrophils (Bld) [#/Vol] 3.2 10*3/uL 2.0-7.7 [facility] Anion gap in Serum or Plasma Ordered By: Leandro uLa on 11-21-2024 Anion gap [Moles/Vol] 12 mmol/L 5-15 [facility] Automated blood erythrocyte countOrdered By: Leandro Lua on 11-21-2024 RBC (Bld) [#/Vol] 4.15 10*6/uL Low 4.2-5.4 [facility] Comment on above: Performed By: #### L 500.4050, L100.0100, L506.1000, L501.9520, L500.4100 #### [facility] Laboratory [address] [place], [address] Automated blood hematocrit ( percentage)Ordered By: Leandro Lua on 11-21-2024 Hematocrit (Bld) [Volume fraction] 33.3 % Low 37-47 [facility] Comment on above: Performed By: #### L 500.4050, L100.0100, L506.1000, L501.9520, L500.4100 #### [facility] [address] [place], [address] Automated lymphocyte count a s percentage of total leukocytesOrdered By: Leandro Chungok on 11-21-2024 Lymphocytes/100 WBC (Bld) 21.0 % Normal - [facility] Comment on above: Performed By: #### L 500.4050, L100.0100, L506.1000, L501.9520, L500.4100 #### [facility] [address] [place], [address] Lymphocytes/100 WBC Auto (Unsp spec) 21.0 % -41 [facility] BUN/creatinine ratioOrdered By: Leandro Lua on 11-21-2024 Urea nitrogen/Creatinine [Mass ratio] 40.5 mg/mg High 10-20 [facility] Basophil percentageOrdered B y: Leandro Lua on 11-21-2024 Basophils/100 WBC (Bld) 1.0 % Normal 0-1 [facility] Comment on above: Performed By: #### L 500.4050, L100.0100, L506.1000, L501.9520, L500.4100 #### [facility] [address] [place], [address] Bilirubin, totalOrdered By: Leandro Lua on 11-21-2024 Bilirubin [Mass/Vol] 0.41 mg/dL Normal 0.00-1.[address] [facility] Comment on above: Performed By: #### L 500.4050, L100.0100, L506.1000, L501.9520, L500.4100 #### [facility] [address] [place], [address] CBC W/Diff, Automatedon 04-0 Absolute Lymph 1.07 X10 3/uL Normal 0.83-4.51 [facility] Comment on above: Performed By: #### L 500.4050, L100.0100, L506.1000, L501.9520, L500.4100 #### [facility] [address] [place], [address] Absolute Neut 3.2 X10 3/uL Normal 2.0-7.7 [facility] Comment on above: Performed By: #### L 500.4050, L100.0100, L506.1000, L501.9520, L500.4100 #### [facility] [address] [place], [address] IG% 0.400 Normal 0.0-0.9 [facility] Comment on above: Result Comment: IG% - Immature Granulocytes (promyelocytes, myelocytes and metamyelocytes) > 1% indicates that a LEFT SHIFT is Present. Performed By: #### L 500.4050, L100.0100, L506.1000, L501.9520, L500.4100 #### [facility] [address] [place], [address] Nucleated RBC (Bld) [#/Vol] 0 10*3/uL Normal 0-5 [facility] Comment on above: Performed By: #### L 500.4050, L100.0100, L506.1000, L501.9520, L500.4100 #### [facility] [address] [place], [address] RDW SD 44.9 fl High 35.1-43.9 [facility] Comment on above: Performed By: #### L 500.4050, L100.0100, L506.1000, L501.9520, L500.4100 #### [facility] [address] [place], [address] Calculated very low density lipoprotein (VLDL) cholesterol measurementOrdered By: Leandro Lua on 11-21-2024 Calculated very low density lipoprotein (VLDL) cholesterol measurement 15 mg/dL 5-40 [facility] VLDL Cholesterol 15 mg/dL 5-40 [facility] Carbon dioxide, total [Moles /volume] in Central venous bloodOrdered By: Leandro Lua on 11-21-2024 CO2 [Moles/Vol] 23.8 mmol/L Normal 21.0-32.0 [facility] Comment on above: Performed By: #### L 500.4050, L100.0100, L506.1000, L501.9520, L500.4100 #### [facility] [address] [place], [address] Chloride assayOrdered By: Scottie Lua on 11-21-2024 Chloride [Moles/Vol] 101 mmol/L Normal 98-[address] [facility] Comment on above: Performed By: #### L 500.4050, L100.0100, L506.1000, L501.9520, L500.4100 #### [facility] [address] [place], [address] Comprehensive Metabolic Prof ilon 11-21-2024 ALK PHOS 68 U/L Normal 35-104 [facility] Comment on above: Performed By: #### L 500.4050, L100.0100, L506.1000, L501.9520, L500.4100 #### [facility] [address] [place], [address] BUN/CRE 40.5 RATIO High 10-20 [facility] Comment on above: Performed By: #### L 500.4050, L100.0100, L506.1000, L501.9520, L500.4100 #### [facility] [address] [place], [address] GAP 12 Normal 5-15 [facility] Comment on above: Performed By: #### L 500.4050, L100.0100, L506.1000, L501.9520, L500.4100 #### [facility] [address] [place], [address] T PROT 6.2 g/dL Normal 5.9-8.4 [facility] Comment on above: Performed By: #### L 500.4050, L100.0100, L506.1000, L501.9520, L500.4100 #### [facility] [address] [place], [address] Comprehensive Metabolic Prof ilOrdered By: Leandro Lua on 11-21-2024 AST [Catalytic activity/Vol] 24 U/L Normal <=31 [facility] Comment on above: Performed By: #### L 500.4050, L100.0100, L506.1000, L501.9520, L500.4100 #### [facility] [address] [place], [id number] Eosinophil percentageOrdered By: Leandro Lua on 11-21-2024 Eosinophils/100 WBC (Bld) 2.9 % Normal 0-5 [facility] Comment on above: Performed By: #### L 500.4050, L100.0100, L506.1000, L501.9520, L500.4100 #### [facility] [address] [place], [place], [id number] Erythrocyte distribution wid th (RBC) [Ratio]Ordered By: Leandro Lua on 11-21-2024 Erythrocyte distribution width (RBC) [Entitic vol] 44.9 fL High 35.1-43.9 [facility] Erythrocyte distribution wid th ratioOrdered By: Leandro Lua on 11-21-2024 Erythrocyte distribution width (RBC) [Ratio] 15.4 % High 11.6-14.6 [facility] Comment on above: Performed By: #### L 500.4050, L100.0100, L506.1000, L501.9520, L500.4100 #### [facility] [address] [place], [address] Erythrocyte distribution wid th standard deviationOrdered By: Leandro Lua on 11-21-2024 Erythrocyte distribution width (RBC) [Ratio] 44.9 fl High 35.1-43.9 [facility] GFR/1.73 sq M.predicted timothy g non-blacks MDRD (S/P/Bld) [Vol rate/Area]Ordered By: Leandro Lua on 11-21-2024 Estimated GFR (MDRD) Non-Af Amer 93 >60 [facility] Comment on above: mL/min/1.73m2 CKD-EP I Creatinine Equation (2020) Glomerular filtration rate ( GFR) estimation/1.73 sq m using serum, plasma, or whole bOrdered By: Leandro Lua on 11-21-2024 GFR/1.73 sq M.predicted among non-blacks MDRD (S/P/Bld) [Vol rate/Area] 93 mL/min/{1.73_m2} Normal >60 [facility] Comment on above: mL/min/1.73m2 CKD-EP I Creatinine Equation (2020) Result Comment: mL/m in/1.73m2 CKD-EPI Creatinine Equation (2020) Performed By: #### L 500.4050, L100.0100, L506.1000, L501.9520, L500.4100 #### [facility] [address] [place], [address] Hemoglobin measurementOrdere d By: Leandro Lua on 11-21-2024 Hemoglobin (Bld) [Mass/Vol] 10.2 g/dL Low 12.0-15.0 [facility] Comment on above: Performed By: #### L 500.4050, L100.0100, L506.1000, L501.9520, L500.4100 #### [facility] [address] [place], [address] Immature granulocytes/100 WB C Auto (Bld)Ordered By: Leandro Lua on 11-21-2024 Immature granulocytes/100 WBC (Bld) 0.400 % 0.0-0.9 [facility] Comment on above: IG% - Immature Granu locytes (promyelocytes, myelocytes and metamyelocytes) > 1% indicates that a LEFT SHIFT is Present. LDL calc ser/plasOrdered By: Leandro Lua on 11-21-2024 Cholesterol in LDL [Mass/Vol] 85 mg/dL Normal [facility] Comment on above: Ouiyrebpaa=499-726 m g/dL & Higher Rxui=187 mg/dL or greater Result Comment: Bord yekrlb=499-322 mg/dL Higher Rfdp=819 mg/dL or greater Performed By: #### L 500.4050, L100.0100, L506.1000, L501.9520, L500.4100 #### [facility] [address] [place], [address] LDL Cholesterol, Calculated 85 mg/dL [facility] Comment on above: Celogmezcm=793-771 m g/dL & Higher Jcty=196 mg/dL or greater Lipid Profileon 11-21-2024 CHOL:HDL 2.61 Normal [facility] Comment on above: Performed By: #### L 500.4050, L100.0100, L506.1000, L501.9520, L500.4100 #### [facility] [address] [place], [address] Cholesterol in VLDL [Mass/Vol] 15 mg/dL Normal 5-40 [facility] Comment on above: Performed By: #### L 500.4050, L100.0100, L506.1000, L501.9520, L500.4100 #### [facility] [address] [place], [address] Lymphocytes Auto (Unsp spec) [#/Vol]Ordered By: Leandro Lua on 11-21-2024 Lymphocytes (Bld) [#/Vol] 1.07 10*3/uL 0.83-4.51 [facility] MCV (mean corpuscular volume ) determinationOrdered By: Leandro Lua on 11-21-2024 MCV (RBC) [Entitic vol] 80.2 fL Low 81-99 [facility] Comment on above: Performed By: #### L 500.4050, L100.0100, L506.1000, L501.9520, L500.4100 #### [facility] [address] [place], [address] Mean corpuscular hemoglobin (MCH) determinationOrdered By: Leandro Lua on 11-21-2024 MCH (RBC) [Entitic mass] 24.6 pg Low 27.0-32.0 [facility] Comment on above: Performed By: #### L 500.4050, L100.0100, L506.1000, L501.9520, L500.4100 #### [facility] [address] [place], [address] Mean corpuscular hemoglobin concentration (MCHC) determinationOrdered By: Leandro Lua on 11-21-2024 MCHC (RBC) [Mass/Vol] 30.6 g/dL Low 32-36 [facility] Comment on above: Performed By: #### L 500.4050, L100.0100, L506.1000, L501.9520, L500.4100 #### [facility] [address] [place], [place], [id number] Mean platelet volume determi nationOrdered By: Leandro Lua on 11-21-2024 Platelet mean volume (Bld) [Entitic vol] 9.8 fL Normal 6.2-12.0 [facility] Comment on above: Performed By: #### L 500.4050, L100.0100, L506.1000, L501.9520, L500.4100 #### [facility] [address] [place], [place], [phone] ([phone] Monocyte percentageOrdered B y: Leandro Lua on 11-21-2024 Monocytes/100 WBC (Bld) 12.4 % High 0-10 [facility] Comment on above: Performed By: #### L 500.4050, L100.0100, L506.1000, L501.9520, L500.4100 #### [facility] [address] [facility] [place], [address] Neutrophil percentageOrdered By: Leandro Lua on 11-21-2024 Neutrophils/100 WBC (Bld) 62.3 % Normal 47-70 [facility] Comment on above: Performed By: #### L 500.4050, L100.0100, L506.1000, L501.9520, L500.4100 #### [facility] [address] [place], [place], [phone] Nucleated red blood cell per centageOrdered By: Leandro Lua on 11-21-2024 Nucleated RBC/100 WBC (Bld) [Ratio] 0 % 0-5 [facility] Platelet countOrdered By: Scottie Lua on 11-21-2024 Platelets (Bld) [#/Vol] 357 10*3/uL Normal 150-450 [facility] Comment on above: Performed By: #### L 500.4050, L100.0100, L506.1000, L501.9520, L500.4100 #### [facility] [address] [place], [address] Potassium measurement (mass/ volume)Ordered By: Leandro Lua on 11-21-2024 Potassium [Moles/Vol] 4.0 mmol/L Normal 3.3-5.1 [facility] Comment on above: Performed By: #### L 500.4050, L100.0100, L506.1000, L501.9520, L500.4100 #### [facility] [address] [place], [address] Potassium (Unsp spec) [Mass/Vol] 4.0 mmol/L 3.3-5.1 [facility] Screening total cholesterol/ high density lipoprotein (HDL) cholesterol ratioOrdered By: Leandro Lua on 11-21-2024 Cholesterol.total/Choles terol in HDL [Mass ratio] 2.61 {ratio} [facility] Serum creatinine measurement (mass/volume)Ordered By: Leandro Lua on 11-21-2024 Creatinine [Mass/Vol] 0.48 mg/dL Low 0.70-1.20 [facility] Comment on above: Performed By: #### L 500.4050, L100.0100, L506.1000, L501.9520, L500.4100 #### [facility] [address] [place], [address] Serum globulin measurementOr dered By: Leandro Lua on 11-21-2024 Globulin (S) [Mass/Vol] 2.3 g/dL Normal 2.2-4.2 [facility] Comment on above: Performed By: #### L 500.4050, L100.0100, L506.1000, L501.9520, L500.4100 #### [facility] [address] [place], [address] Serum glucose measurement (m ass/volume)Ordered By: Leandro Lua on 11-21-2024 Glucose [Mass/Vol] 91 mg/dL Normal 70-99 [facility] Comment on above: Performed By: #### L 500.4050, L100.0100, L506.1000, L501.9520, L500.4100 #### [facility] [address] [facility] [place], [address] Serum or plasma alanine zapata otransferase (ALT) measurementOrdered By: Leandro Lua on 11-21-2024 ALT [Catalytic activity/Vol] 16 U/L Normal <=34 [facility] Comment on above: Performed By: #### L 500.4050, L100.0100, L506.1000, L501.9520, L500.4100 #### [facility] [address] [facility] [place], [address] Serum or plasma albumin ashley urement (mass/volume)Ordered By: Leandro Lua on 11-21-2024 Albumin [Mass/Vol] 3.9 g/dL Normal 3.4-4.8 [facility] Comment on above: Performed By: #### L 500.4050, L100.0100, L506.1000, L501.9520, L500.4100 #### [facility] [address] [facility] [place], [address] Serum or plasma albumin/glob ulin mass ratioOrdered By: Leandro Lua 11-21-2024 Albumin/Globulin [Mass ratio] 1.7 {ratio} Normal 0.9-2.4 [facility] Comment on above: Performed By: #### L 500.4050, L100.0100, L506.1000, L501.9520, L500.4100 #### [facility] [address] [facility] [place], [address] Serum or plasma alkaline isaiah sphatase measurementOrdered By: Leandro Lua on 11-21-2024 ALP [Catalytic activity/Vol] 68 U/L 35-104 [facility] Serum or plasma calcium ashley urement (mass/volume)Ordered By: Leandro Lua on 11-21-2024 Calcium [Mass/Vol] 8.9 mg/dL Normal 7.6-11.0 [facility] Comment on above: Performed By: #### L 500.4050, L100.0100, L506.1000, L501.9520, L500.4100 #### [facility] [address] [place], [place], [phone] Serum or plasma cholesterol in HDL measurement (mass/volume)Ordered By: Leandro Lua on 11-21-2024 Cholesterol in HDL [Mass/Vol] 62 mg/dL Normal [facility] Comment on above: National Cholesterol Education Program [...] L 500.4050, L100.0100, L506.1000, L501.9520, L500.4100 #### [facility] [address] [place], [place], [phone] Serum or plasma cholesterol measurement (mass/volume)Ordered By: Leandro Lua on 11-21-2024 Cholesterol [Mass/Vol] 162 mg/dL Normal <=200 [facility] Comment on above: Cholesterol level, D esirable <200 mg/dLBorderline high cholesterol 200-239 mg/dLHigh cholesterol >=240 mg/dLRecommendations of the NCEP Adult Treatment Panel for the following risk-cutoff thresholds for the [place] population. Result Comment: Chol esterol level, Desirable <200 mg/dL Borderline high cholesterol 200-239 mg/dL High cholesterol >=240 mg/dL Recommendations of the NCEP Adult Treatment Panel for the following risk-cutoff thresholds for the [place] population. Performed By: #### L 500.4050, L100.0100, L506.1000, L501.9520, L500.4100 #### [facility] [address] [place], [address] Serum or plasma urea nitroge n measurement (mass/volume)Ordered By: Leandro Lua on 11-21-2024 Urea nitrogen [Mass/Vol] 19 mg/dL Normal 4-19 [facility] Comment on above: Performed By: #### L 500.4050, L100.0100, L506.1000, L501.9520, L500.4100 #### [facility] [address] [place], [address] Sodium levelOrdered By: Leandro Lua on 11-21-2024 Sodium [Moles/Vol] 137 mmol/L Normal 133-145 [facility] Comment on above: Performed By: #### L 500.4050, L100.0100, L506.1000, L501.9520, L500.4100 #### [facility] [address] [place], [address] TSH DL <= 0.005 mIU/L QnOrde red By: Leandro Lua on 11-21-2024 Thyroid Stimulating Hormone (TSH) 2.340 uIU/mL 0.300-4.200 [facility] TSH Qn 2.340 uIU/mL 0.300-4.200 [facility] Thyroid Stim Hormone (TSH)on 11-21-2024 TSH 2.340 uIU/mL Normal 0.300-4.200 [facility] Comment on above: Performed By: #### L 500.4050, L100.0100, L506.1000, L501.9520, L500.4100 #### [facility] Laboratory [address] [place], [address] Total proteinOrdered By: Leandro Lua on 11-21-2024 Protein [Mass/Vol] 6.2 g/dL 5.9-8.4 [facility] Triglycerides measurementOrd ered By: Leandro Lua on 11-21-2024 Triglyceride [Mass/Vol] 76 mg/dL Normal [facility] Comment on above: The drugs N-Acetylcy [...] L 500.4050, L100.0100, L506.1000, L501.9520, L500.4100 #### [facility] [address] [place], [place], [id number] Vitamin D, 25-hydroxyOrdered By: Leandro Lua on 11-21-2024 Vitamin D 25-Hydroxy 36.2 ng/mL 30-[address] [facility] Comment on above: Vitamin D StatusDefi ciency: <20 ng/mL (50nmol/L)Insufficiency: 20-30 ng/mL (50-75 nmol/L)Sufficiency: 30-100 ng/mL (75-250 nmol/L)Toxicity: >100 ng/mL (>250 nmol/L) Vitamin D,25 Hydroxyon 11-21 Vitamin D 25-OH 36.2 ng/mL Normal 30-100 [facility] Comment on above: Result Comment: Elizabeth min D Status Deficiency: <20 ng/mL (50nmol/L) Insufficiency: 20-30 ng/mL (50-75 nmol/L) Sufficiency: 30-100 ng/mL (75-250 nmol/L) Toxicity: >100 ng/mL (>250 nmol/L) Performed By: #### L 500.4050, L100.0100, L506.1000, L501.9520, L500.4100 #### [facility] [address] [place], [address] White blood cell (WBC) count Ordered By: Leandro Lua on 11-21-2024 WBC (Bld) [#/Vol] 5.1 10*3/uL Normal 4.4-11.0 [facility] Comment on above: Performed By: #### L 500.4050, L100.0100, L506.1000, L501.9520, L500.4100 #### [facility] [address] [place], [address] Influenza virus A and B and SARS-CoV-2 (COVID-19) and Respiratory syncytial virus RNAOrdered By: Leandro Lua on 10-17-2024 SARS-CoV-2 (COVID-19) RNA MATEO+probe Ql (Unsp spec) [facility] M100.678on 10-17-2024 M100.678 Pending SARS-CoV-2 (COVID 19) Negative INFLUENZA A Negative INFLUENZA B Negative RSV PCR Negative Normal [facility] Comment on above: Performed By: #### M 100.678 ####[facility] [address] [place], [address] M100.678on 06-28-2024 M100.678 Pending SARS-CoV-2 (COVID 19) Negative INFLUENZA A Negative INFLUENZA B Negative RSV PCR Negative Normal [facility] Comment on above: Performed By: #### L 500.4050, L100.0100, L506.1000, L501.9520, L500.4100 #### [facility] [address] [place], [address] CBC W/Diff, Automatedon 10-0 Absolute Lymph 0.96 X10 3/uL Normal 0.83-4.51 [facility] Comment on above: Performed By: #### L 500.4050, L100.0100, L506.1000, L501.9520, L500.4100 #### [facility] [address] [place], [address] Absolute Neut 2.5 X10 3/uL Normal 2.0-7.7 [facility] Comment on above: Performed By: #### L 500.4050, L100.0100, L506.1000, L501.9520, L500.4100 #### [facility] [address] [place], [address] Basophils/100 WBC (Bld) 1.5 % High 0-1 [facility] Comment on above: Performed By: #### L 500.4050, L100.0100, L506.1000, L501.9520, L500.4100 #### [facility] [address] [place], [address] Eosinophils/100 WBC (Bld) 3.7 % Normal 0-5 [facility] Comment on above: Performed By: #### L 500.4050, L100.0100, L506.1000, L501.9520, L500.4100 #### [facility] [address] [place], [address] Erythrocyte distribution width (RBC) [Ratio] 16.2 % High 11.6-14.6 [facility] Comment on above: Performed By: #### L 500.4050, L100.0100, L506.1000, L501.9520, L500.4100 #### [facility] [address] [place], [address] Hematocrit (Bld) [Volume fraction] 36.3 % Low 37-47 [facility] Comment on above: Performed By: #### L 500.4050, L100.0100, L506.1000, L501.9520, L500.4100 #### [facility] [address] [place], [address] Hemoglobin (Bld) [Mass/Vol] 10.8 g/dL Low 12.0-15.0 [facility] Comment on above: Performed By: #### L 500.4050, L100.0100, L506.1000, L501.9520, L500.4100 #### [facility] [address], [address] IG% 0.500 Normal 0.0-0.9 [facility] Comment on above: Result Comment: IG% - Immature Granulocytes (promyelocytes, myelocytes and metamyelocytes) > 1% indicates that a LEFT SHIFT is Present. Performed By: #### L 500.4050, L100.0100, L506.1000, L501.9520, L500.4100 #### [facility] [address] [place], [address] Lymphocytes/100 WBC (Bld) 23.9 % Normal 19-41 [facility] Comment on above: Performed By: #### L 500.4050, L100.0100, L506.1000, L501.9520, L500.4100 #### [facility] [address] [place], [address] MCH (RBC) [Entitic mass] 24.8 pg Low 27.0-32.0 [facility] Comment on above: Performed By: #### L 500.4050, L100.0100, L506.1000, L501.9520, L500.4100 #### [facility] [address] [place], [address] MCHC (RBC) [Mass/Vol] 29.8 g/dL Low 32-36 [facility] Comment on above: Performed By: #### L 500.4050, L100.0100, L506.1000, L501.9520, L500.4100 #### [facility] [address] [place], [address] MCV (RBC) [Entitic vol] 83.4 fL Normal 81-99 [facility] Comment on above: Performed By: #### L 500.4050, L100.0100, L506.1000, L501.9520, L500.4100 #### [facility] [address] [place], [address] Monocytes/100 WBC (Bld) 8.7 % Normal 0-10 [facility] Comment on above: Performed By: #### L 500.4050, L100.0100, L506.1000, L501.9520, L500.4100 #### [facility] [address] [place], [address] Neutrophils/100 WBC (Bld) 61.7 % Normal 47-70 [facility] Comment on above: Performed By: #### L 500.4050, L100.0100, L506.1000, L501.9520, L500.4100 #### [facility] [address] [place], [address] Nucleated RBC (Bld) [#/Vol] 0 10*3/uL Normal 0-5 [facility] Comment on above: Performed By: #### L 500.4050, L100.0100, L506.1000, L501.9520, L500.4100 #### [facility] [address] [place], [address] Platelet mean volume (Bld) [Entitic vol] 9.9 fL Normal 6.2-12.0 [facility] Comment on above: Performed By: #### L 500.4050, L100.0100, L506.1000, L501.9520, L500.4100 #### [facility] [address] [place], [address] Platelets (Bld) [#/Vol] 289 10*3/uL Normal 150-450 [facility] Comment on above: Performed By: #### L 500.4050, L100.0100, L506.1000, L501.9520, L500.4100 #### [facility] [address] [place], [address] RBC (Bld) [#/Vol] 4.35 10*6/uL Normal 4.2-5.4 [facility] Comment on above: Performed By: #### L 500.4050, L100.0100, L506.1000, L501.9520, L500.4100 #### [facility] [address] [place], [address] RDW SD 49.3 fl High 35.1-43.9 [facility] Comment on above: Performed By: #### L 500.4050, L100.0100, L506.1000, L501.9520, L500.4100 #### [facility] [address] [place], [address] WBC (Bld) [#/Vol] 4.0 10*3/uL Low 4.4-11.0 [facility] Comment on above: Performed By: #### L 500.4050, L100.0100, L506.1000, L501.9520, L500.4100 #### [facility] [address] [place], [address] Comprehensive Metabolic [facility] 05-22-2024 Albumin [Mass/Vol] 3.4 g/dL Normal 3.2-5.0 [facility] Comment on above: Performed By: #### L 500.4050, L100.0100, L506.1000, L501.9520, L500.4100 #### [facility] [address] [place], [address] Albumin/Globulin [Mass ratio] 1.0 {ratio} Normal 0.9-2.4 [facility] Comment on above: Performed By: #### L 500.4050, L100.0100, L506.1000, L501.9520, L500.4100 #### [facility] [address] [place], [address] ALK P 74 U/L Normal 45-117 [facility] Comment on above: Performed By: #### L 500.4050, L100.0100, L506.1000, L501.9520, L500.4100 #### [facility] [address] [place], [address] ALT [Catalytic activity/Vol] 21 U/L Normal 13-56 [facility] Comment on above: Performed By: #### L 500.4050, L100.0100, L506.1000, L501.9520, L500.4100 #### [facility] [address] [place], [address] AST [Catalytic activity/Vol] 22 U/L Normal 15-37 [facility] Comment on above: Performed By: #### L 500.4050, L100.0100, L506.1000, L501.9520, L500.4100 #### [facility] [address] [place], [address] Bilirubin [Mass/Vol] 0.50 mg/dL Normal 0.20-1.[address] [facility] Comment on above: Result Comment: For patients on eltrombopag therapy, use of Dimension [place] TBIL is not recommended. Performed By: #### L 500.4050, L100.0100, L506.1000, L501.9520, L500.4100 #### [facility] [address] [place], [address] BUN/CRE 30.1 RATIO High 10-20 [facility] Comment on above: Performed By: #### L 500.4050, L100.0100, L506.1000, L501.9520, L500.4100 #### [facility] [address] [place], [address] CA,Total 8.9 mg/dL Normal 8.5-10.1 [facility] Comment on above: Performed By: #### L 500.4050, L100.0100, L506.1000, L501.9520, L500.4100 #### [facility] [address] [place], [address] Chloride [Moles/Vol] 106 mmol/L Normal 98-[address] [facility] Comment on above: Performed By: #### L 500.4050, L100.0100, L506.1000, L501.9520, L500.4100 #### [facility] [address] [place], [address] CO2 [Moles/Vol] 27.0 mmol/L Normal 21.0-32.0 [facility] Comment on above: Performed By: #### L 500.4050, L100.0100, L506.1000, L501.9520, L500.4100 #### [facility] [address] [place], [address] Creatinine [Mass/Vol] 0.60 mg/dL Normal 0.55-1.02 [facility] Comment on above: Result Comment: The validity of the calculated GFR GFRAA in patients over 70 years has not been determined. Clinical correlation is essential. Performed By: #### L 500.4050, L100.0100, L506.1000, L501.9520, L500.4100 #### [facility] [address] [place], [address] EST GFR - AA 123 mL/min Normal >60 [facility] Comment on above: Result Comment: Afri can Nigerian GFR Calc Performed By: #### L 500.4050, L100.0100, L506.1000, L501.9520, L500.4100 #### [facility] [address] [place], [address] GAP 6 Normal 5-15 [facility] Comment on above: Performed By: #### L 500.4050, L100.0100, L506.1000, L501.9520, L500.4100 #### [facility] [address] [place], [address] GFR/1.73 sq M.predicted among non-blacks MDRD (S/P/Bld) [Vol rate/Area] 102 mL/min/{1.73_m2} Normal >60 [facility] Comment on above: Result Comment: Non- GFR Calc Performed By: #### L 500.4050, L100.0100, L506.1000, L501.9520, L500.4100 #### [facility] [address] [place], [address] Globulin (S) [Mass/Vol] 3.3 g/dL Normal 2.2-4.2 [facility] Comment on above: Performed By: #### L 500.4050, L100.0100, L506.1000, L501.9520, L500.4100 #### [facility] [address] [place], [address] Glucose [Mass/Vol] 96 mg/dL Normal 74-106 [facility] Comment on above: Performed By: #### L 500.4050, L100.0100, L506.1000, L501.9520, L500.4100 #### [facility] [address] [place], [address] Potassium [Moles/Vol] 3.7 mmol/L Normal 3.5-5.1 [facility] Comment on above: Performed By: #### L 500.4050, L100.0100, L506.1000, L501.9520, L500.4100 #### [facility] [address] [place], [address] Sodium [Moles/Vol] 139 mmol/L Normal 136-145 [facility] Comment on above: Performed By: #### L 500.4050, L100.0100, L506.1000, L501.9520, L500.4100 #### [facility] [address] [place], [address] T PROT 6.7 g/dL Normal 6.4-8.2 [facility] Comment on above: Performed By: #### L 500.4050, L100.0100, L506.1000, L501.9520, L500.4100 #### [facility] [address] [place], [address] Urea nitrogen [Mass/Vol] 18 mg/dL Normal 7-18 [facility] Comment on above: Performed By: #### L 500.4050, L100.0100, L506.1000, L501.9520, L500.4100 #### [facility] [address] [place], [address] Lipid Profileon 05-22-2024 Cholesterol [Mass/Vol] 161 mg/dL Normal 200 [facility] Comment on above: Result Comment: <200 mg/dL Desirable 200-240 mg/dL Borderline >240 mg/dL High Risk Performed By: #### L 500.4050, L100.0100, L506.1000, L501.9520, L500.4100 #### [facility] [address] [place], [address] Cholesterol in HDL [Mass/Vol] 63 mg/dL Normal [facility] Comment on above: Result Comment: The drugs N-Acetylcysteine and Metamizole may falsely depress this assay. Reference Range HDL <40 mg/dL Low HDL Cholesterol HDL >or= 60 mg/dL High HDL Cholesterol Performed By: #### L 500.4050, L100.0100, L506.1000, L501.9520, L500.4100 #### [facility] [address] [place], [address] Cholesterol in LDL [Mass/Vol] 82 mg/dL Normal 0-130 [facility] Comment on above: Performed By: #### L 500.4050, L100.0100, L506.1000, L501.9520, L500.4100 #### [facility] [address] [place], [address] Cholesterol in VLDL [Mass/Vol] 16 mg/dL Normal 5-40 [facility] Comment on above: Performed By: #### L 500.4050, L100.0100, L506.1000, L501.9520, L500.4100 #### [facility] [address] [place], [address] Triglyceride [Mass/Vol] 82 mg/dL Normal [facility] Comment on above: Result Comment: The drugs N-Acetylcysteine and Metamizole may falsely depress this assay. Serum Triglycerides Reference Interval Normal <150 mg/dL Borderline high 150 - 199 mg/dL High 200 - 499 mg/dL Very High > or = 500 mg/dL Performed By: #### L 500.4050, L100.0100, L506.1000, L501.9520, L500.4100 #### [facility] [address] [place], [address] Thyroid Stim Hormone (TSH)on 05-22-2024 TSH 2.530 uIU/mL Normal 0.358-3.740 [facility] Comment on above: Performed By: #### L 500.4050, L100.0100, L506.1000, L501.9520, L500.4100 #### [facility] [address] [place], [address] Vitamin D,25 Hydroxyon 05-22 Vitamin D 25-OH 37.0 ng/mL Normal [facility] Comment on above: Result Comment: Elizabeth min D 25(OH) Status Range Deficiency <20 ng/mL (50nmol/L) Insufficiency 20 - 30 ng/mL (50 - 75 nmol/L) Sufficiency 30 - 100 ng/mL (75 - 250 nmol/L) Toxicity >100 ng/mL (>250 nmol/L) Performed By: #### L 500.4050, L100.0100, L506.1000, L501.0520, L500.7010 #### [facility] [address] [place], [address] Absolute lymphocyte countOrd ered By: Leandro Lua on 11-16-2023 Lymphocytes Auto (Unsp spec) [#/Vol] 0.84 10*3/uL 0.83-4.51 [facility] Automated lymphocyte count a s percentage of total leukocytesOrdered By: Leandro Lua on 11-16-2023 Lymphocytes/100 WBC Auto (Unsp spec) 17.6 % 19-41 [facility] Basophil percentageOrdered B y: Leandro Lua on 11-16-2023 Basophils/100 WBC (Bld) 1.3 % 0-1 [facility] Bilirubin [Mass/Vol] 0.50 mg/dL 0.20-1.[address] [facility] Comment on above: For patients on eltr ombopag therapy, use of Dimension [place] TBIL is not recommended. Chloride [Moles/Vol] 105 mmol/L 98-[address] [facility] Cholesterol [Mass/Vol] 153 mg/dL <200 [facility] Comment on above: <200 mg/dL Desirable 200-240 mg/dL Borderline >240 mg/dL High Risk Eosinophils/100 WBC (Bld) 3.6 % 0-5 [facility] Glucose [Mass/Vol] 91 mg/dL 74-106 [facility] Hemoglobin (Bld) [Mass/Vol] 10.5 g/dL 12.0-15.0 [facility] Monocytes/100 WBC (Bld) 14.0 % 0-10 [facility] Neutrophils (Bld) [#/Vol] 3.0 10*3/uL 2.0-7.7 [facility] Neutrophils/100 WBC (Bld) 63.1 % 47-70 [facility] Potassium [Moles/Vol] 3.9 mmol/L 3.5-5.1 [facility] Protein [Mass/Vol] 6.8 g/dL 6.4-8.2 [facility] Sodium [Moles/Vol] 138 mmol/L 136-145 [facility] Triglyceride [Mass/Vol] 106 mg/dL <199 [facility] Comment on above: The drugs N-Acetylcy steine and Metamizole may falsely depress this assay.Serum Triglycerides Reference Interval Normal <150 mg/dL Borderline high 150 - 199 mg/dL High 200 - 499 mg/dL Very High > or = 500 mg/dL WBC (Bld) [#/Vol] 4.8 10*3/uL 4.4-11.0 [facility] Determination of erythrocyte mean corpuscular volume (MCV)Ordered By: Leandro Lua on 11-16-2023 MCV (RBC) [Entitic vol] 83.4 fL 81-99 [facility] Erythrocyte distribution wid th ratioOrdered By: Leandro Lua on 11-16-2023 Erythrocyte distribution width (RBC) [Ratio] 15.3 % 11.6-14.6 [facility] Erythrocyte distribution wid th standard deviationOrdered By: Leandro Lua on 11-16-2023 Erythrocyte distribution width (RBC) [Entitic vol] 46.4 fL 35.1-43.9 [facility] Hematocrit Auto (Bld) [Volum e fraction]Ordered By: Leandro Lua on 11-16-2023 Hematocrit (Bld) [Volume fraction] 34.7 % 37-47 [facility] Immature granulocytes/100 WB C Auto (Bld)Ordered By: Leandro Lua on 11-16-2023 Immature granulocytes/100 WBC (Bld) 0.400 % 0.0-0.9 [facility] Comment on above: IG% - Immature Granu locytes (promyelocytes, myelocytes and metamyelocytes) > 1% indicates that a LEFT SHIFT is Present. Laboratory - Chemistry and C hemistry - challengeOrdered By: Leandro Lua on 11-16-2023 Albumin/Globulin [Mass ratio] 0.9 {ratio} 0.9-2.4 [facility] ALP [Catalytic activity/Vol] 85 U/L 45-117 [facility] ALT [Catalytic activity/Vol] 20 U/L 13-56 [facility] Cholesterol in HDL [Mass/Vol] 66 mg/dL >40 [facility] Comment on above: The drugs N-Acetylcy steine and Metamizole may falsely depress this assay. Reference Range HDL <40 mg/dL Low HDL Cholesterol HDL >or= 60 mg/dL High HDL Cholesterol Cholesterol in LDL [Mass/Vol] 66 mg/dL 0-130 [facility] CO2 [Moles/Vol] 27.0 mmol/L 21.0-32.0 [facility] Globulin (S) [Mass/Vol] 3.6 g/dL 2.2-4.2 [facility] Urea nitrogen/Creatinine [Mass ratio] 24.7 mg/mg 10-20 [facility] Laboratory - Hematology and Cell countsOrdered By: Leandro Lua on 11-16-2023 MCH (RBC) [Entitic mass] 25.2 pg 27.0-32.0 [facility] MCHC (RBC) [Mass/Vol] 30.3 g/dL 32-36 [facility] Nucleated RBC/100 WBC (Bld) [Ratio] 0 % 0-5 [facility] Platelet mean volume (Bld) [Entitic vol] 10.3 fL 6.2-12.0 [facility] Platelets (Bld) [#/Vol] 345 10*3/uL 150-450 [facility] No Panel InformationOrdered By: Leandro Lua on 11-16-2023 Estimated GFR (MDRD) Amer 131 mL/min >60 [facility] Comment on above: GFR Calc Estimated GFR (MDRD) Non-Af Amer 108 mL/min >60 [facility] Comment on above: Non- GFR Calc Vitamin D 25-Hydroxy 39.2 ng/mL [facility] Comment on above: Vitamin D 25(OH) Sta tus Range Deficiency <20 ng/mL (50nmol/L) Insufficiency 20 - 30 ng/mL (50 - 75 nmol/L) Sufficiency 30 - 100 ng/mL (75 - 250 nmol/L) Toxicity >100 ng/mL (>250 nmol/L) VLDL Cholesterol 21 mg/dL 5-40 [facility] RBC Auto (Bld) [#/Vol]Ordere d By: Leandro Lua on 11-16-2023 RBC (Bld) [#/Vol] 4.16 10*6/uL 4.2-5.4 [facility] Serum or plasma calcium ashley urement (mass/volume)Ordered By: Leandro Lua on 11-16-2023 Calcium [Mass/Vol] 8.7 mg/dL 8.5-10.1 [facility] Serum or plasma creatinine m easurement (mass/volume)Ordered By: Leandro Lua on 11-16-2023 Creatinine [Mass/Vol] 0.57 mg/dL 0.55-1.02 [facility] Comment on above: The validity of the calculated GFR & GFRAA in patients over 70 years has not been determined. Clinical correlation is essential. Serum or plasma thyroid stim ulating hormone (TSH) measurement (units/volume)Ordered By: Leandro Lua on 11-16-2023 TSH Qn 2.47 uIU/mL 0.358-3.74 [facility] Serum or plasma urea nitroge n measurement (mass/volume)Ordered By: Leandro Lua on 11-16-2023 Urea nitrogen [Mass/Vol] 14 mg/dL 7-18 [facility] Thin prep Papanicolaou smear with manual screeningOrdered By: Leandro Lua on 11-16-2023 Thin prep Papanicolaou smear with manual screening 3.2 g/dL 3.2-5.0 [facility] Thin prep Papanicolaou smear with manual screening 23 U/L 15-37 [facility] Thin prep Papanicolaou smear with manual screening 6 5-15 [facility] Laboratory - Microbiology an d Antimicrobial susceptibilityOrdered By: Leandro Lua on 08-05-2023 SARS-CoV-2 (COVID-19) RNA MATEO+probe Ql (Unsp spec) [facility] No Panel InformationOrdered By: Leandro Lua on 08-05-2023 Influenza Types A,B Direct FA (MAXI) [facility] RSV Ag EIAOrdered By: Leandro garcia on 08-05-2023 RSV Ag Immune stain Ql (Tiss) [facility] Absolute lymphocyte countOrd ered By: Leandro Lua on 05-18-2023 Lymphocytes Auto (Unsp spec) [#/Vol] 1.04 10*3/uL 0.83-4.51 [facility] Basophil percentageOrdered B y: Leandro Lua on 05-18-2023 Basophils/100 WBC (Bld) 0.6 % 0-1 [facility] Bilirubin [Mass/Vol] 0.50 mg/dL 0.20-1.[address] [facility] Comment on above: For patients on eltr ombopag therapy, use of Dimension [place] TBIL is not recommended. Chloride [Moles/Vol] 106 mmol/L 98-[address] [facility] Eosinophils/100 WBC (Bld) 1.7 % 0-5 [facility] Glucose [Mass/Vol] 101 mg/dL 74-106 [facility] Comment on above: Fasting Glucose resu lt from 100 to 125 mg/dL suggests IMPAIRED HOMEOSTASIS per A.D.A. criteria. Neutrophils (Bld) [#/Vol] 3.0 10*3/uL 2.0-7.7 [facility] Neutrophils/100 WBC (Bld) 65.0 % 47-70 [facility] Potassium [Moles/Vol] 3.9 mmol/L 3.5-5.1 [facility] Protein [Mass/Vol] 6.7 g/dL 6.4-8.2 [facility] Sodium [Moles/Vol] 139 mmol/L 136-145 [facility] WBC (Bld) [#/Vol] 4.7 10*3/uL 4.4-11.0 [facility] Blood erythrocytes count (nu mber/volume)Ordered By: Leandro Lua on 05-18-2023 RBC (Bld) [#/Vol] 4.15 10*6/uL 4.2-5.4 [facility] Blood hemoglobin measurement (mass/volume)Ordered By: Leandro Lua on 05-18-2023 Hemoglobin (Bld) [Mass/Vol] 10.9 g/dL 12.0-15.0 [facility] Blood lymphocytes/100 leukoc ytesOrdered By: Leandro Lua on 05-18-2023 Lymphocytes/100 WBC (Bld) 22.4 % 19-41 [facility] Blood monocytes/100 leukocyt esOrdered By: Leandro Lua on 05-18-2023 Monocytes/100 WBC (Bld) 10.1 % 0-10 [facility] Blood platelet mean volumeOr dered By: Leandro Lua on 05-18-2023 Platelet mean volume (Bld) [Entitic vol] 10.3 fL 6.2-12.0 [facility] Culture, urineOrdered By: Scottie Lua on 05-18-2023 Bacteria identified Cx Nom (U) Mixed Gram Pos & Gram Neg Org [facility] Determination of erythrocyte mean corpuscular volume (MCV)Ordered By: Leandro Lua on 05-18-2023 MCV (RBC) [Entitic vol] 87.5 fL 81-99 [facility] Hematocrit Auto (Bld) [Volum e fraction]Ordered By: Leandro Lua on 05-18-2023 Hematocrit (Bld) [Volume fraction] 36.3 % 37-47 [facility] Laboratory - Chemistry and C hemistry - challengeOrdered By: Leandro Lua on 05-18-2023 ALP [Catalytic activity/Vol] 92 U/L 45-117 [facility] ALT [Catalytic activity/Vol] 24 U/L 13-56 [facility] CO2 [Moles/Vol] 28.0 mmol/L 21.0-32.0 [facility] Globulin (S) [Mass/Vol] 3.3 g/dL 2.2-4.2 [facility] Urea nitrogen/Creatinine [Mass ratio] 34.1 mg/mg 10-20 [facility] Laboratory - Hematology and Cell countsOrdered By: Leandro Lua on 05-18-2023 Erythrocyte distribution width (RBC) [Entitic vol] 47.0 fL 35.1-43.9 [facility] Erythrocyte distribution width (RBC) [Ratio] 14.7 % 11.6-14.6 [facility] Immature granulocytes/100 WBC (Bld) 0.200 % 0.0-0.9 [facility] Comment on above: IG% - Immature Granu locytes (promyelocytes, myelocytes and metamyelocytes) > 1% indicates that a LEFT SHIFT is Present. MCH (RBC) [Entitic mass] 26.3 pg 27.0-32.0 [facility] Nucleated RBC/100 WBC (Bld) [Ratio] 0 % 0-5 [facility] MCHC Auto (RBC) [Mass/Vol]Or dered By: Leandro Lua on 05-18-2023 MCHC (RBC) [Mass/Vol] 30.0 g/dL 32-36 [facility] No Panel InformationOrdered By: Leandro Lua on 05-18-2023 Estimated GFR (MDRD) Amer 134 mL/min >60 [facility] Comment on above: GFR Calc Estimated GFR (MDRD) Non-Af Amer 110 mL/min >60 [facility] Comment on above: Non- GFR Calc Thyroid Stimulating Hormone (TSH) 2.36 uIU/mL 0.358-3.74 [facility] Vitamin D 25-Hydroxy 34.7 ng/mL [facility] Comment on above: Vitamin D 25(OH) Sta tus Range Deficiency <20 ng/mL (50nmol/L) Insufficiency 20 - 30 ng/mL (50 - 75 nmol/L) Sufficiency 30 - 100 ng/mL (75 - 250 nmol/L) Toxicity >100 ng/mL (>250 nmol/L) Platelets bldOrdered By: Leandro Lua on 05-18-2023 Platelets (Bld) [#/Vol] 293 10*3/uL 150-450 [facility] Serum or plasma albumin ashley urement (mass/volume)Ordered By: Leandro Lua on 05-18-2023 Albumin [Mass/Vol] 3.4 g/dL 3.2-5.0 [facility] Serum or plasma albumin/glob ulin mass ratioOrdered By: Leandro Lua on 05-18-2023 Albumin/Globulin [Mass ratio] 1.0 {ratio} 0.9-2.4 [facility] Serum or plasma calcium ashley urement (mass/volume)Ordered By: Leandro Lua on 05-18-2023 Calcium [Mass/Vol] 8.6 mg/dL 8.5-10.1 [facility] Serum or plasma creatinine m easurement (mass/volume)Ordered By: Leandro Lua on 05-18-2023 Creatinine [Mass/Vol] 0.56 mg/dL 0.55-1.02 [facility] Comment on above: The validity of the calculated GFR & GFRAA in patients over 70 years has not been determined. Clinical correlation is essential. Serum or plasma urea nitroge n measurement (mass/volume)Ordered By: Leandro Lua on 05-18-2023 Urea nitrogen [Mass/Vol] 19 mg/dL 7-18 [facility] Thin prep Papanicolaou smear with manual screeningOrdered By: Leandro Lua on 05-18-2023 Thin prep Papanicolaou smear with manual screening 23 U/L 15-37 [facility] Thin prep Papanicolaou smear with manual screening 5 5-15 [facility] Absolute lymphocyte countOrd ered By: Dr. Lua on 08-13-2022 Lymphocytes Auto (Unsp spec) [#/Vol] 0.91 10*3/uL 0.83-4.51 [facility] Basophil percentageOrdered B y: Dr. Lua on 08-13-2022 Basophils/100 WBC (Bld) 0.6 % 0-1 [facility] Bilirubin [Mass/Vol] 0.50 mg/dL 0.20-1.[address] [facility] Comment on above: For patients on eltr ombopag therapy, use of Dimension [place] TBIL is not recommended. Chloride [Moles/Vol] 105 mmol/L 98-[address] [facility] Eosinophils/100 WBC (Bld) 1.3 % 0-5 [facility] Glucose [Mass/Vol] 103 mg/dL 74-106 [facility] Comment on above: Fasting Glucose resu lt from 100 to 125 mg/dL suggests IMPAIRED HOMEOSTASIS per A.D.A. criteria. Neutrophils (Bld) [#/Vol] 3.7 10*3/uL 2.0-7.7 [facility] Neutrophils/100 WBC (Bld) 70.9 % 47-70 [facility] Potassium [Moles/Vol] 3.7 mmol/L 3.5-5.1 [facility] Protein [Mass/Vol] 6.8 g/dL 6.4-8.2 [facility] Sodium [Moles/Vol] 136 mmol/L 136-145 [facility] WBC (Bld) [#/Vol] 5.3 10*3/uL 4.4-11.0 [facility] Blood erythrocytes count (nu mber/volume)Ordered By: Dr. Lua on 08-13-2022 RBC (Bld) [#/Vol] 4.19 10*6/uL 4.2-5.4 [facility] Blood hemoglobin measurement (mass/volume)Ordered By: Dr. Lua on 08-13-2022 Hemoglobin (Bld) [Mass/Vol] 12.0 g/dL 12.0-15.0 [facility] Blood lymphocytes/100 leukoc ytesOrdered By: Dr. Lua on 08-13-2022 Lymphocytes/100 WBC (Bld) 17.3 % 19-41 [facility] Blood monocytes/100 leukocyt esOrdered By: Dr. Lua on 08-13-2022 Monocytes/100 WBC (Bld) 9.5 % 0-10 [facility] Blood platelet mean volumeOr dered By: Dr. Lua on 08-13-2022 Platelet mean volume (Bld) [Entitic vol] 11.0 fL 6.2-12.0 [facility] Determination of erythrocyte mean corpuscular volume (MCV)Ordered By: Dr. Lua on 08-13-2022 MCV (RBC) [Entitic vol] 91.2 fL 81-99 [facility] Hematocrit Auto (Bld) [Volum e fraction]Ordered By: Dr. Lua on 08-13-2022 Hematocrit (Bld) [Volume fraction] 38.2 % 37-47 [facility] Laboratory - Chemistry and C hemistry - challengeOrdered By: Dr. Lua on 08-13-2022 ALP [Catalytic activity/Vol] 77 U/L 45-117 [facility] ALT [Catalytic activity/Vol] 29 U/L 13-56 [facility] CO2 [Moles/Vol] 24.0 mmol/L 21.0-32.0 [facility] Globulin (S) [Mass/Vol] 3.5 g/dL 2.2-4.2 [facility] Urea nitrogen/Creatinine [Mass ratio] 32.1 mg/mg 10-20 [facility] Laboratory - Hematology and Cell countsOrdered By: Dr. Lua on 08-13-2022 Erythrocyte distribution width (RBC) [Entitic vol] 46.9 fL 35.1-43.9 [facility] Erythrocyte distribution width (RBC) [Ratio] 14.0 % 11.6-14.6 [facility] Immature granulocytes/100 WBC (Bld) 0.400 % 0.0-0.9 [facility] Comment on above: IG% - Immature Granu locytes (promyelocytes, myelocytes and metamyelocytes) > 1% indicates that a LEFT SHIFT is Present. MCH (RBC) [Entitic mass] 28.6 pg 27.0-32.0 [facility] Nucleated RBC/100 W[facility] (Bld) [Ratio] 0 % 0-[facility] [Mass/Vol]Or dered By: Dr. Lua on 08-13-2022 MCHC (RBC) [Mass/Vol] 31.4 g/dL 32-36 [facility] No Panel InformationOrdered By: Dr. Lua on 08-13-2022 Estimated GFR (MDRD) Amer 125 mL/min >60 [facility] Comment on above: GFR Calc Estimated GFR (MDRD) Non-Af Amer 103 mL/min >60 [facility] Comment on above: Non- GFR Calc Thyroid Stimulating Hormone (TSH) 2.96 uIU/mL 0.358-3.74 [facility] Vitamin D 25-Hydroxy 32.1 ng/mL [facility] Comment on above: Vitamin D 25(OH) Sta tus Range Deficiency <20 ng/mL (50nmol/L) Insufficiency 20 - 30 ng/mL (50 - 75 nmol/L) Sufficiency 30 - 100 ng/mL (75 - 250 nmol/L) Toxicity >100 ng/mL (>250 nmol/L) Platelets bldOrdered By: Dr. Lua on 08-13-2022 Platelets (Bld) [#/Vol] 293 10*3/uL 150-450 [facility] Serum or plasma albumin ashley urement (mass/volume)Ordered By: Dr. Lua on 08-13-2022 Albumin [Mass/Vol] 3.3 g/dL 3.2-5.0 [facility] Serum or plasma albumin/glob ulin mass ratioOrdered By: Dr. Lua on 08-13-2022 Albumin/Globulin [Mass ratio] 0.9 {ratio} 0.9-2.4 [facility] Serum or plasma calcium ashley urement (mass/volume)Ordered By: Dr. Lua on 08-13-2022 Calcium [Mass/Vol] 8.6 mg/dL 8.5-10.1 [facility] Serum or plasma creatinine m easurement (mass/volume)Ordered By: Dr. Lua on 08-13-2022 Creatinine [Mass/Vol] 0.59 mg/dL 0.55-1.02 [facility] Comment on above: The validity of the calculated GFR & GFRAA in patients over 70 years has not been determined. Clinical correlation is essential. Serum or plasma urea nitroge n measurement (mass/volume)Ordered By: Dr. Lua on 08-13-2022 Urea nitrogen [Mass/Vol] 19 mg/dL 7-18 [facility] Thin prep Papanicolaou smear with manual screeningOrdered By: Dr. Lua on 08-13-2022 Thin prep Papanicolaou smear with manual screening 21 U/L 15-37 [facility] Thin prep Papanicolaou smear with manual screening 7 5-15 [facility] Absolute lymphocyte countOrd ered By: Dr. Lua on 05-11-2022 Lymphocytes Auto (Unsp spec) [#/Vol] 1.15 10*3/uL 0.83-4.51 [facility] Basophil percentageOrdered B y: Dr. Lua on 05-11-2022 Basophils/100 WBC (Bld) 0.8 % 0-1 [facility] Bilirubin [Mass/Vol] 0.60 mg/dL 0.20-1.[address] [facility] Comment on above: For patients on eltr ombopag therapy, use of Dimension [place] TBIL is not recommended. Chloride [Moles/Vol] 105 mmol/L 98-[address] [facility] Eosinophils/100 WBC (Bld) 1.3 % 0-5 [facility] Glucose [Mass/Vol] 97 mg/dL 74-106 [facility] Neutrophils (Bld) [#/Vol] 3.5 10*3/uL 2.0-7.7 [facility] Neutrophils/100 WBC (Bld) 66.4 % 47-70 [facility] Potassium [Moles/Vol] 3.9 mmol/L 3.5-5.1 [facility] Protein [Mass/Vol] 6.9 g/dL 6.4-8.2 [facility] Sodium [Moles/Vol] 142 mmol/L 136-145 [facility] WBC (Bld) [#/Vol] 5.2 10*3/uL 4.4-11.0 [facility] Blood erythrocytes count (nu mber/volume)Ordered By: Dr. Lua on 05-11-2022 RBC (Bld) [#/Vol] 4.13 10*6/uL 4.2-5.4 [facility] Blood hemoglobin measurement (mass/volume)Ordered By: Dr. Lua on 05-11-2022 Hemoglobin (Bld) [Mass/Vol] 12.5 g/dL 12.0-15.0 [facility] Blood lymphocytes/100 leukoc ytesOrdered By: Dr. Lua on 05-11-2022 Lymphocytes/100 WBC (Bld) 22.1 % 19-41 [facility] Blood monocytes/100 leukocyt esOrdered By: Dr. Lua on 05-11-2022 Monocytes/100 WBC (Bld) 8.4 % 0-10 [facility] Blood platelet mean volumeOr dered By: Dr. Lua on 05-11-2022 Platelet mean volume (Bld) [Entitic vol] 10.6 fL 6.2-12.0 [facility] Determination of erythrocyte mean corpuscular volume (MCV)Ordered By: Dr. Lua on 05-11-2022 MCV (RBC) [Entitic vol] 92.7 fL 81-99 [facility] Hematocrit Auto (Bld) [Volum e fraction]Ordered By: Dr. Lua on 05-11-2022 Hematocrit (Bld) [Volume fraction] 38.3 % 37-47 [facility] Laboratory - Chemistry and C hemistry - challengeOrdered By: Dr. Lua on 05-11-2022 ALP [Catalytic activity/Vol] 76 U/L 45-117 [facility] ALT [Catalytic activity/Vol] 28 U/L 13-56 [facility] CO2 [Moles/Vol] 30.0 mmol/L 21.0-32.0 [facility] Globulin (S) [Mass/Vol] 3.6 g/dL 2.2-4.2 [facility] Urea nitrogen/Creatinine [Mass ratio] 25.7 mg/mg 10-20 [facility] Laboratory - Hematology and Cell countsOrdered By: Dr. Lua on 05-11-2022 Erythrocyte distribution width (RBC) [Entitic vol] 49.6 fL 35.1-43.9 [facility] Erythrocyte distribution width (RBC) [Ratio] 14.5 % 11.6-14.6 [facility] Immature granulocytes/100 WBC (Bld) 1.000 % 0.0-0.9 [facility] Comment on above: IG% - Immature Granu locytes (promyelocytes, myelocytes and metamyelocytes) > 1% indicates that a LEFT SHIFT is Present. MCH (RBC) [Entitic mass] 30.3 pg 27.0-32.0 [facility] Nucleated RBC/100 WBC (Bld) [Ratio] 0 % 0-5 [facility] MCHC Auto (RBC) [Mass/Vol]Or dered By: Dr. Lua on 05-11-2022 MCHC (RBC) [Mass/Vol] 32.6 g/dL 32-36 [facility] No Panel InformationOrdered By: Dr. Lua on 05-11-2022 Estimated GFR (MDRD) Amer 118 mL/min >60 [facility] Comment on above: GFR Calc Estimated GFR (MDRD) Non-Af Amer 97 mL/min >60 [facility] Comment on above: Non- GFR Calc Thyroid Stimulating Hormone (TSH) 2.03 uIU/mL 0.358-3.74 [facility] Vitamin D 25-Hydroxy 28.5 ng/mL [facility] Comment on above: Vitamin D 25(OH) Sta tus Range Deficiency <20 ng/mL (50nmol/L) Insufficiency 20 - 30 ng/mL (50 - 75 nmol/L) Sufficiency 30 - 100 ng/mL (75 - 250 nmol/L) Toxicity >100 ng/mL (>250 nmol/L) Platelets bldOrdered By: Dr. Lua on 05-11-2022 Platelets (Bld) [#/Vol] 282 10*3/uL 150-450 [facility] Serum or plasma albumin ashley urement (mass/volume)Ordered By: Dr. Lua on 05-11-2022 Albumin [Mass/Vol] 3.3 g/dL 3.2-5.0 [facility] Serum or plasma albumin/glob ulin mass ratioOrdered By: Dr. Lua on 05-11-2022 Albumin/Globulin [Mass ratio] 0.9 {ratio} 0.9-2.4 [facility] Serum or plasma calcium ashley urement (mass/volume)Ordered By: Dr. Lua on 05-11-2022 Calcium [Mass/Vol] 9.1 mg/dL 8.5-10.1 [facility] Serum or plasma creatinine m easurement (mass/volume)Ordered By: Dr. Lua on 05-11-2022 Creatinine [Mass/Vol] 0.62 mg/dL 0.55-1.02 [facility] Comment on above: The validity of the calculated GFR & GFRAA in patients over 70 years has not been determined. Clinical correlation is essential. Serum or plasma urea nitroge n measurement (mass/volume)Ordered By: Dr. Lua on 05-11-2022 Urea nitrogen [Mass/Vol] 16 mg/dL 7-18 [facility] Thin prep Papanicolaou smear with manual screeningOrdered By: Dr. Lua on 05-11-2022 Thin prep Papanicolaou smear with manual screening 24 U/L 15-37 [facility] Thin prep Papanicolaou smear with manual screening 7 5-15 [facility] Basophil percentageon 2021 Chloride [Moles/Vol] 106 mmol/L 98-[address] [facility] Work Phone: Glucose [Mass/Vol] 81 mg/dL 74-106 [facility] Work Phone: Potassium [Moles/Vol] 4.1 mmol/L 3.5-5.1 [facility] Work Phone: Sodium [Moles/Vol] 138 mmol/L 136-145 [facility] Work Phone: Laboratory - Chemistry and C hemistry - challengeon 03-09-2022 CO2 [Moles/Vol] 27.0 mmol/L 21.0-32.0 [facility] Work Phone: Urea nitrogen/Creatinine [Mass ratio] 31.3 mg/mg 10-20 [facility] Work Phone: No Panel Informationon 03-09 Estimated GFR (MDRD) Amer 129 mL/min >60 [facility] Work Phone: Comment on above: GFR Calc Estimated GFR (MDRD) Non-Af Amer 107 mL/min >60 [facility] Work Phone: Comment on above: Non- GFR Calc Serum or plasma calcium ashley urement (mass/volume)on 03-09-2022 Calcium [Mass/Vol] 8.8 mg/dL 8.5-10.1 [facility] Work Phone: Serum or plasma creatinine m easurement (mass/volume)on 03-09-2022 Creatinine [Mass/Vol] 0.58 mg/dL 0.55-1.02 [address] [facility] Work Phone: Comment on above: The validity of the calculated GFR & GFRAA in patients over 70 years has not been determined. Clinical correlation is essential. Serum or plasma urea nitroge n measurement (mass/volume)on 03-09-2022 Urea nitrogen [Mass/Vol] 18 mg/dL 7-18 [facility] Work Phone: Thin prep Papanicolaou smear with manual screeningon 03-09-2022 Thin prep Papanicolaou smear with manual screening 5 5-15 [facility] Work Phone: Laboratory - Microbiology an d Antimicrobial susceptibilityon 02-27-2022 SARS-CoV-2 (COVID-19) RNA MATEO+probe Ql (Unsp spec) Not detected Not Detect [facility] Work Phone: Comment on above: Normal Reference [...] Auto (Unsp spec) [#/Vol] 1.07 10*3/uL 0.83-4.51 [facility] Work Phone: Basophil percentageon 2021 Basophils/100 WBC (Bld) 0.5 % 0-1 [facility] Work Phone: Chloride [Moles/Vol] 96 mmol/L 98-107 [facility]: Eosinophils/100 WBC (Bld) 1.2 % 0-5 [facility] Work Phone: Glucose [Mass/Vol] 87 mg/dL 74-106 [facility] Work Phone: Neutrophils (Bld) [#/Vol] 5.6 10*3/uL 2.0-7.7 [facility] Work Phone: Neutrophils/100 WBC (Bld) 74.7 % 47-70 [facility] Work Phone: Potassium [Moles/Vol] 3.1 mmol/L 3.5-5.1 [facility] Work Phone: Sodium [Moles/Vol] 135 mmol/L 136-145 [facility] Work Phone: WBC (Bld) [#/Vol] 7.5 10*3/uL 4.4-11.0 [facility] Work Phone: Blood erythrocytes count (nu mber/volume)on 02-26-2022 RBC (Bld) [#/Vol] 4.12 10*6/uL 4.2-5.4 [facility] Work Phone: Blood hemoglobin measurement (mass/volume)on 02-26-2022 Hemoglobin (Bld) [Mass/Vol] 12.5 g/dL 12.0-15.0 [facility] Work Phone: Blood lymphocytes/100 leukoc yteson 02-26-2022 Lymphocytes/100 WBC (Bld) 14.3 % 19-41 [facility] Work Phone: Blood monocytes/100 leukocyt eson 02-26-2022 Monocytes/100 WBC (Bld) 8.8 % 0-10 [facility] Work Phone: Blood platelet mean volumeon 02-26-2022 Platelet mean volume (Bld) [Entitic vol] 10.7 fL 6.2-12.0 [facility] Work Phone: Determination of erythrocyte mean corpuscular volume (MCV)on 02-26-2022 MCV (RBC) [Entitic vol] 89.8 fL 81-99 [facility] Work Phone: Hematocrit Auto (Bld) [Volum e fraction]on 02-26-2022 Hematocrit (Bld) [Volume fraction] 37.0 % 37-47 [facility] Work Phone: Laboratory - Chemistry and C hemistry - challengeon 02-26-2022 CO2 [Moles/Vol] 32.0 mmol/L 21.0-32.0 [facility] Work Phone: Urea nitrogen/Creatinine [Mass ratio] 32.6 mg/mg 10-20 [facility] Work Phone: Laboratory - Hematology and Cell countson 02-26-2022 Erythrocyte distribution width (RBC) [Entitic vol] 46.3 fL 35.1-43.9 [facility] Work Phone: Erythrocyte distribution width (RBC) [Ratio] 14.1 % 11.6-14.6 [facility] Work Phone: Immature granulocytes/100 WBC (Bld) 0.500 % 0.0-0.9 [facility] Work Phone: Comment on above: IG% - Immature Granu locytes (promyelocytes, myelocytes and metamyelocytes) > 1% indicates that a LEFT SHIFT is Present. MCH (RBC) [Entitic mass] 30.3 pg 27.0-32.0 [facility] Work Phone: Nucleated RBC/100 WBC (Bld) [Ratio] 0 % 0-5 [facility] Work Phone: MCHC Auto (RBC) [Mass/Vol]on 02-26-2022 MCHC (RBC) [Mass/Vol] 33.8 g/dL 32-36 [facility] Work Phone: No Panel Informationon 02-26 Estimated GFR (MDRD) Amer 127 mL/min >60 [facility] Work Phone: Comment on above: GFR Calc Estimated GFR (MDRD) Non-Af Amer 105 mL/min >60 [facility] Work Phone: Comment on above: Non- GFR Calc Platelets bldon 02-26-2022 Platelets (Bld) [#/Vol] 264 10*3/uL 150-450 [facility] Work Phone: Serum or plasma calcium ashley urement (mass/volume)on 02-26-2022 Calcium [Mass/Vol] 9.0 mg/dL 8.5-10.1 [facility] Work Phone: Serum or plasma creatinine m easurement (mass/volume)on 02-26-2022 Creatinine [Mass/Vol] 0.58 mg/dL 0.55-1.02 [facility] Work Phone: Comment on above: The validity of the calculated GFR & GFRAA in patients over 70 years has not been determined. Clinical correlation is essential. Serum or plasma urea nitroge n measurement (mass/volume)on 02-26-2022 Urea nitrogen [Mass/Vol] 19 mg/dL 7-18 [facility] Work Phone: Thin prep Papanicolaou smear with manual screeningon 02-26-2022 Thin prep Papanicolaou smear with manual screening 7 5-15 [facility] Work Phone: Absolute lymphocyte counton 02-02-2022 Lymphocytes Auto (Unsp spec) [#/Vol] 1.10 10*3/uL 0.83-4.51 [facility] Work Phone: Basophil percentageon 2021 Basophils/100 WBC (Bld) 0.6 % 0-1 [facility] Work Phone: Bilirubin [Mass/Vol] 0.60 mg/dL 0.20-1.[address] [facility] Work Phone: Comment on above: For patients on eltr ombopag therapy, use of Dimension [place] TBIL is not recommended. Chloride [Moles/Vol] 102 mmol/L 98-[address] [facility] Work Phone: Eosinophils/100 WBC (Bld) 1.5 % 0-5 [facility] Work Phone: Glucose [Mass/Vol] 98 mg/dL 74-106 [facility] Work Phone: [phone] Neutrophils (Bld) [#/Vol] 4.7 10*3/uL 2.0-7.7 [facility] Work Phone: [phone] Neutrophils/100 WBC (Bld) 71.1 % 47-70 [facility] Work Phone: [phone] Potassium [Moles/Vol] 4.0 mmol/L 3.5-5.1 [facility] Work Phone: [phone] Protein [Mass/Vol] 6.6 g/dL 6.4-8.2 [facility] Work Phone: Sodium [Moles/Vol] 136 mmol/L 136-145 [facility] Work Phone: [phone] WBC (Bld) [#/Vol] 6.6 10*3/uL 4.4-11.0 [facility] Work Phone: [phone] Blood erythrocytes count (nu mber/volume)on 02-02-2022 RBC (Bld) [#/Vol] 3.99 10*6/uL 4.2-5.4 [facility] Work Phone: Blood hemoglobin measurement (mass/volume)on 02-02-2022 Hemoglobin (Bld) [Mass/Vol] 12.2 g/dL 12.0-15.0 [facility] Work Phone: Blood lymphocytes/100 leukoc yteson 02-02-2022 Lymphocytes/100 WBC (Bld) 16.6 % 19-41 [facility] Work Phone: Blood monocytes/100 leukocyt eson 02-02-2022 Monocytes/100 WBC (Bld) 9.7 % 0-10 [facility] Work Phone: Blood platelet mean volumeon 02-02-2022 Platelet mean volume (Bld) [Entitic vol] 10.7 fL 6.2-12.0 [facility] Work Phone: Determination of erythrocyte mean corpuscular volume (MCV)on 02-02-2022 MCV (RBC) [Entitic vol] 94.5 fL 81-99 [facility] Work Phone: Hematocrit Auto (Bld) [Volum e fraction]on 02-02-2022 Hematocrit (Bld) [Volume fraction] 37.7 % 37-47 [facility] Work Phone: Laboratory - Chemistry and C hemistry - challengeon 02-02-2022 ALP [Catalytic activity/Vol] 69 U/L 45-117 [facility] Work Phone: ALT [Catalytic activity/Vol] 25 U/L 13-56 [facility] Work Phone: CO2 [Moles/Vol] 25.0 mmol/L 21.0-32.0 [facility] Work Phone: Globulin (S) [Mass/Vol] 3.3 g/dL 2.2-4.2 [facility] Work Phone: Urea nitrogen/Creatinine [Mass ratio] 29.4 mg/mg 10-20 [facility] Work Phone: Laboratory - Hematology and Cell countson 02-02-2022 Erythrocyte distribution width (RBC) [Entitic vol] 47.1 fL 35.1-43.9 [facility] Work Phone: Erythrocyte distribution width (RBC) [Ratio] 13.4 % 11.6-14.6 [facility] Work Phone: Immature granulocytes/100 WBC (Bld) 0.500 % 0.0-0.9 [facility] Work Phone: Comment on above: IG% - Immature Granu locytes (promyelocytes, myelocytes and metamyelocytes) > 1% indicates that a LEFT SHIFT is Present. MCH (RBC) [Entitic mass] 30.6 pg 27.0-32.0 [facility] Work Phone: Nucleated RBC/100 WBC (Bld) [Ratio] 0 % 0-5 [facility] Work Phone: MCHC Auto (RBC) [Mass/Vol]on 02-02-2022 MCHC (RBC) [Mass/Vol] 32.4 g/dL 32-36 [facility] Work Phone: No Panel Informationon 02-02 Estimated GFR (MDRD) Amer 129 mL/min >60 [facility] Work Phone: Comment on above: GFR Calc Estimated GFR (MDRD) Non-Af Amer 106 mL/min >60 [facility] Work Phone: Comment on above: Non- GFR Calc Thyroid Stimulating Hormone (TSH) 1.69 uIU/mL 0.358-3.74 [facility] Work Phone: Vitamin D 25-Hydroxy 37.6 ng/mL [facility] Work Phone: Comment on above: Vitamin D 25(OH) Sta tus Range Deficiency <20 ng/mL (50nmol/L) Insufficiency 20 - 30 ng/mL (50 - 75 nmol/L) Sufficiency 30 - 100 ng/mL (75 - 250 nmol/L) Toxicity >100 ng/mL (>250 nmol/L) Platelets bldon 02-02-2022 Platelets (Bld) [#/Vol] 255 10*3/uL 150-450 [facility] Work Phone: Serum or plasma albumin ashley urement (mass/volume)on 02-02-2022 Albumin [Mass/Vol] 3.3 g/dL 3.2-5.0 [facility] Work Phone: Serum or plasma albumin/glob ulin mass ratioon 02-02-2022 Albumin/Globulin [Mass ratio] 1.0 {ratio} 0.9-2.4 [facility] Work Phone: Serum or plasma calcium ashley urement (mass/volume)on 02-02-2022 Calcium [Mass/Vol] 8.7 mg/dL 8.5-10.1 [facility] Work Phone: Serum or plasma creatinine m easurement (mass/volume)on 02-02-2022 Creatinine [Mass/Vol] 0.58 mg/dL 0.55-1.02 [facility] Work Phone: Comment on above: The validity of the calculated GFR & GFRAA in patients over 70 years has not been determined. Clinical correlation is essential. Serum or plasma urea nitroge n measurement (mass/volume)on 02-02-2022 Urea nitrogen [Mass/Vol] 17 mg/dL 7-18 [facility] Work Phone: Thin prep Papanicolaou smear with manual screeningon 02-02-2022 Thin prep Papanicolaou smear with manual screening 23 U/L 15-37 [facility] Work Phone: Thin prep Papanicolaou smear with manual screening 9 5-15 [facility] Work Phone: Absolute lymphocyte counton 11-05-2021 Lymphocytes Auto (Unsp spec) [#/Vol] 1.08 10*3/uL 0.83-4.51 [facility] Work Phone: Basophil percentageon 2021 Basophils/100 WBC (Bld) 0.5 % 0-1 [facility] Work Phone: Bilirubin [Mass/Vol] 0.60 mg/dL 0.20-1.[address] [facility] Work Phone: Comment on above: For patients on eltr ombopag therapy, use of Dimension [place] TBIL is not recommended. Chloride [Moles/Vol] 102 mmol/L 98-[address] [facility] Work Phone: [phone] Eosinophils/100 WBC (Bld) 1.6 % 0-5 [facility] Work Phone: Glucose [Mass/Vol] 83 mg/dL 74-106 [facility] Work Phone: Neutrophils (Bld) [#/Vol] 5.4 10*3/uL 2.0-7.7 [facility] Work Phone: [phone] Neutrophils/100 WBC (Bld) 73.2 % 47-70 [facility] Work Phone: Potassium [Moles/Vol] 4.0 mmol/L 3.5-5.1 [facility] Work Phone: [phone] Protein [Mass/Vol] 7.0 g/dL 6.4-8.2 [facility] Work [facility]: [phone] Sodium [Moles/Vol] 137 mmol/L 136-145 [facility] Work Phone: [phone] WBC (Bld) [#/Vol] 7.3 10*3/uL 4.4-11.0 [facility] Work Phone: Blood erythrocytes count (nu mber/volume)on 11-05-2021 RBC (Bld) [#/Vol] 4.15 10*6/uL 4.2-5.4 [facility]: [phone] Blood hemoglobin measurement (mass/volume)on 11-05-2021 Hemoglobin (Bld) [Mass/Vol] 13.2 g/dL 12.0-15.0 [facility] Work Phone: [phone] Blood lymphocytes/100 leukoc yteson 11-05-2021 Lymphocytes/100 WBC (Bld) 14.8 % 19-41 [facility] Work Phone: Blood monocytes/100 leukocyt eson 11-05-2021 Monocytes/100 WBC (Bld) 9.4 % 0-10 [facility] Work Phone: Blood platelet mean volumeon 11-05-2021 Platelet mean volume (Bld) [Entitic vol] 10.7 fL 6.2-12.0 [facility] Work Phone: Determination of erythrocyte mean corpuscular volume (MCV)on 11-05-2021 MCV (RBC) [Entitic vol] 94.9 fL 81-99 [facility] Work Phone: Hematocrit Auto (Bld) [Volum e fraction]on 11-05-2021 Hematocrit (Bld) [Volume fraction] 39.4 % 37-47 [facility] Work Phone: Laboratory - Chemistry and C hemistry - challengeon 11-05-2021 ALP [Catalytic activity/Vol] 75 U/L 45-117 [facility] Work Phone: ALT [Catalytic activity/Vol] 36 U/L 13-56 [facility] Work Phone: CO2 [Moles/Vol] 32.0 mmol/L 21.0-32.0 [facility] Work Phone: Globulin (S) [Mass/Vol] 3.5 g/dL 2.2-4.2 [facility] Work Phone: Urea nitrogen/Creatinine [Mass ratio] 33.5 mg/mg 10-20 [facility] Work Phone: Laboratory - Hematology and Cell countson 11-05-2021 Erythrocyte distribution width (RBC) [Entitic vol] 49.0 fL 35.1-43.9 [facility] Work Phone: Erythrocyte distribution width (RBC) [Ratio] 14.0 % 11.6-14.6 [facility] Work Phone: Immature granulocytes/100 WBC (Bld) 0.500 % 0.0-0.9 [facility] Work Phone: Comment on above: IG% - Immature Granu locytes (promyelocytes, myelocytes and metamyelocytes) > 1% indicates that a LEFT SHIFT is Present. MCH (RBC) [Entitic mass] 31.8 pg 27.0-32.0 [facility] Work Phone: Nucleated RBC/100 WBC (Bld) [Ratio] 0 % 0-5 [facility] Work Phone: MCHC Auto (RBC) [Mass/Vol]on 11-05-2021 MCHC (RBC) [Mass/Vol] 33.5 g/dL 32-36 [facility] Work Phone: No Panel Informationon 11-05 Estimated GFR (MDRD) Amer 124 mL/min >60 [facility] Work Phone: Comment on above: GFR Calc Estimated GFR (MDRD) Non-Af Amer 102 mL/min >60 [facility] Work Phone: Comment on above: Non- GFR Calc Thyroid Stimulating Hormone (TSH) 1.92 uIU/mL 0.358-3.74 [facility] Work Phone: Vitamin D 25-Hydroxy 27.1 ng/mL [facility] Work Phone: Comment on above: Vitamin D 25(OH) Sta tus Range Deficiency <20 ng/mL (50nmol/L) Insufficiency 20 - 30 ng/mL (50 - 75 nmol/L) Sufficiency 30 - 100 ng/mL (75 - 250 nmol/L) Toxicity >100 ng/mL (>250 nmol/L) Platelets bldon 11-05-2021 Platelets (Bld) [#/Vol] 287 10*3/uL 150-450 [facility] Work Phone: Serum or plasma albumin ashley urement (mass/volume)on 11-05-2021 Albumin [Mass/Vol] 3.5 g/dL 3.2-5.0 [facility] Work Phone: Serum or plasma albumin/glob ulin mass ratioon 11-05-2021 Albumin/Globulin [Mass ratio] 1.0 {ratio} 0.9-2.4 [facility] Work Phone: Serum or plasma calcium ashley urement (mass/volume)on 11-05-2021 Calcium [Mass/Vol] 8.8 mg/dL 8.5-10.1 [facility] Work Phone: Serum or plasma creatinine m easurement (mass/volume)on 11-05-2021 Creatinine [Mass/Vol] 0.60 mg/dL 0.55-1.02 [facility] Work Phone: Comment on above: The validity of the calculated GFR & GFRAA in patients over 70 years has not been determined. Clinical correlation is essential. Serum or plasma urea nitroge n measurement (mass/volume)on 11-05-2021 Urea nitrogen [Mass/Vol] 20 mg/dL 7-18 [facility] Work Phone: Thin prep Papanicolaou smear with manual screeningon 11-05-2021 Thin prep Papanicolaou smear with manual screening 28 U/L 15-37 [facility] Work Phone: Thin prep Papanicolaou smear with manual screening 3 5-15 [facility] Work Phone: Laboratory - Microbiology an d Antimicrobial susceptibilityon 10-06-2021 SARS-CoV-2 (COVID-19) RNA MATEO+probe Ql (Unsp spec) Not detected Not Detect [facility] Work Phone: Comment on above: Normal Reference [...] 10-06 Influenza Types A,B Direct FA (MAXI) [facility] Work Phone: No Panel Informationon 10-01 Enteric Bacteriology [facility] Work Phone: Culture, urineon 09-16-2021 Bacteria identified Cx Nom (U) Escherichia coli [facility] Work Phone: CBC AND DIFFERENTIALon 03-18 % AUTOMATED IMMATURE GRAN 0.9 % Normal 0.0 - 0.9 [facility] Comment on above: Result Comment: Perc ent differential counts (%) should be interpreted in the context of the absolute cell counts (cells/L). Performed By: #### C BCDF ####[facility] [place] [address] % NEUTROPHIL 72.7 % Normal 40.0 - 80.0 [facility] Comment on above: Performed By: #### C BCDF ####[facility] [place] [address] Basophils/100 WBC Auto (Bld) 0.4 % Normal 0.0 - 2.0 [facility] Comment on above: Performed By: #### C BCDF ####[facility] [place] [address] Basophils/100 WBC Auto (Bld) 0.02 x10E9/L Normal 0.00 - 0.10 [facility] Comment on above: Performed By: #### C BCDF ####[facility] [place] [address] Eosinophils 0.18 10*3/uL Normal 0.00 - 0.40 [facility] Comment on above: Performed By: #### C BCDF ####[facility] [place] [address] Eosinophils/100 leukocytes 3.2 % Normal 0.0 - 6.0 [facility] Comment on above: Performed By: #### C BCDF ####[facility] [place] [address] Erythrocyte distribution width Auto Ratio (RBC) 14.6 % High 11.5 - 14.5 [facility] Comment on above: Performed By: #### C BCDF ####[facility] [place] [address] Erythrocytes (RBC) 3.87 x10E12/L Low 4.00 - 5.20 [facility] Comment on above: Performed By: #### C BCDF ####[facility] [place] [address] Hematocrit (HCT) 35.8 % Low 36.0 - 46.0 [facility] Comment on above: Performed By: #### C BCDF ####[facility] [place] [address] Hemoglobin mass conc (Bld) 11.3 g/dL Low 12.0 - 16.0 [facility] Comment on above: Performed By: #### C BCDF ####[facility] [place] [address] Lymphocytes 0.78 10*3/uL Low 0.80 - 3.00 [facility] Comment on above: Performed By: #### C BCDF ####[facility] [place] [address] Lymphocytes/100 leukocytes 13.9 % Normal 13.0 - 44.0 [facility] Comment on above: Performed By: #### C BCDF ####[facility] [place] [address] MCHC mass conc (RBC) 31.6 g/dL Low 32.0 - 36.0 [facility] Comment on above: Performed By: #### C BCDF ####[facility] [place] [address] MCV 93 fL Normal 80 - 100 [facility] Comment on above: Performed By: #### C BCDF ####[facility] [place] [address] Monocytes 0.50 10*3/uL Normal 0.05 - 0.80 [facility] Comment on above: Performed By: #### C BCDF ####[facility] [place] [address] Monocytes/100 leukocytes 8.9 % Normal 2.0 - 10.0 [facility] Comment on above: Performed By: #### C BCDF ####[facility] [place] [address] Neutrophils 4.08 10*3/uL Normal 1.60 - 5.50 [facility] Comment on above: Performed By: #### C BCDF ####[facility] [place] [address] Nucleated erythrocytes 0.0 /100 WBC Normal 0.0-0.0 [facility] Comment on above: Performed By: #### C BCDF ####[facility] [place] [address] Platelets 214 10*3/uL Normal 150 - 450 [facility] Comment on above: Performed By: #### C BCDF ####[facility] [place] [address] WBC (Leukocytes) 5.6 10*3/uL Normal 4.4 - 11.3 [facility] Comment on above: Performed By: #### C BCDF ####[facility] [place] [address] Discharge Summaryon 03-18-20 Discharge Summary Send Summary:Dischar ge Summary Providers:Provider Role Provider Name? Referring Abelino Capellan? Primary Unknown, Pcp? Attending Richy Poon Recipients: Cheryl Poon MDDischarge:Summary:Admi ssion Date: .13-Mar-2017 12:00:00Discharge Date: [id number] Physician at Discharge: Cheryl PoonAdmission Reason: fallFinal Discharge Diagnoses: BPPVProcedures: n/aCondition at Discharge: FairDisposition at Discharge: Alf FacilityHospital Course:Patient presented to the emergency department after a mechanical fall [facility]. The mechanism of her fall was that shetripped and fell forward onto the stairs. She is unsure about any LOC. She hither face and body on the stairs going up them.She complains of some pain to the midface on the left as well as to the nose.She says she did have some [facility]bil[facility] However she was given some Dilaudid and [...] to call you directly to scheduleappointment Location: [address] [place] [address] Hsaztg-Up Appointment 02: Physician/Dept/Service: Dr. Stanley West - Neurosurgery Scheduled Date/Time: 01-Apr-2017 13:30 Location: [address], [place] [address] Fqsvvanap Medications: Home Medication metoprolol succinate 25 mg [...] patient (as noted in the above attestation) on:[id number]/ Additional Findings:I saw and evaluated the patient. I agree with the findings and the plan of careas documented in the resident?s note..: Elec tronic Signatures:Lena Sweeney (Resident)) (Signed 18-Mar-2017 12:31) Authored: Send Summary, Summary Content, Ongoing Care, AttestationViolette, Cheryl (MD) (Signed 28-Apr-2017 16:54) Authored: Ongoing Care, Attestation Co-Signer: Send Summary, Summary Content, Ongoing Care, AttestationLast Updated: 28-Apr-2017 16:54 by Cheryl Poon) Normal [facility] MAGNESIUMon 03-18-2017 Magnesium 1.67 mg/dL Normal 1.60 - 2.40 [facility] Comment on above: Performed By: #### M G ####[facility] [place] [address] RENAL FUNCTION PANELon 03-18 Albumin 3.1 g/dL Low 3.4 - 5.0 [facility] Comment on above: Performed By: #### R ENAL ####[facility] [place] [address] Anion gap 14 mmol/L Normal 10 - 20 [facility] Comment on above: Performed By: #### R ENAL ####[facility] [place] [address] Bicarbonate (HCO3) 28 mmol/L Normal 21 - 32 [facility] Comment on above: Performed By: #### R ENAL ####[facility] [place] [address] Calcium 8.6 mg/dL Normal 8.6 - 10.6 [facility] Comment on above: Performed By: #### R ENAL ####[facility] [place] [address] Chloride 101 mmol/L Normal 98 - 107 [facility] Comment on above: Performed By: #### R ENAL ####[facility] [place] [address] Creatinine 0.45 mg/dL Low 0.50 - 1.05 [facility] Comment on above: Performed By: #### R ENAL ####[facility] [place] [address] eGFR (non-black) mL/min/{1.73_m2} Normal >60 [facility] Comment on above: Result Comment: CALC ULATIONS OF ESTIMATED GFR ARE PERFORMED USING THE MDRD STUDY EQUATION FOR THE IDMS-TRACEABLE CREATININE METHODS. CLIN CHEM 2007;53:766-72 Performed By: #### R ENAL ####[facility] [place] [address] Glucose mass conc 101 mg/dL High 74 - 99 [facility] Comment on above: Performed By: #### R ENAL ####[facility] [place] [address] Phosphate 3.5 mg/dL Normal 2.5 - 4.9 [facility] Comment on above: Result Comment: The performance characteristics of phosphorus testing in heparinized plasma have been validated by the individual laboratory site where testing is performed. Testing on heparinized plasma is not approved by the FDA; however, such approval is not necessary. Performed By: #### R ENAL ####[facility] [place] [address] Potassium molar conc 3.4 mmol/L Low 3.5 - 5.3 [facility] Comment on above: Performed By: #### R ENAL ####[facility] [place] [address] Sodium 140 mmol/L Normal 136 - 145 [facility] Comment on above: Performed By: #### R ENAL ####[facility] [place] [address] Urea nitrogen 13 mg/dL Normal 6 - 23 [facility] Comment on above: Performed By: #### R ENAL ####[facility] [place] [address] BN SPINE, LUMBOSACRAL; 2 OR 3 VIEWSon 03-17-2017 BN SPINE, LUMBOSACRAL; 2 OR 3 VIEWS Name: TORSTEN COLINDRES STUDY:LUMBOSACRAL SPINE, 2 OR 3 VIEWS; 03/17/2017 2:35 pm INDICATION:Signs/Symptom s: evaluate dynamic height loss. COMPARISON:03/13/2017 ORDERING CLINICIAN:LENA FAUGNO-FUSCI FINDINGS:Three views of the lumbosacral spine demonstrates [...] changedfrom prior accounting for differences in technique.3. Hkxk-bt-xrratgtm multilevel discogenic degenerative changes aremost pronounced at L5-S1. I personally reviewed the images/study and I agree with the findingsas stated. This study was interpreted at [place], [place].Electronically signed by: DO Noble JOSEPH [facility] NR MRI CERVICAL WOon 017 NR MRI [...] noted.Electronically signed by: RICHARD RIVAS, PHYSICIAN Normal [facility] ALCOHOLon 03-13-2017 Ethanol mg/dL Normal [facility] Comment on above: Result Comment: FOR MEDICAL USE ONLY..REF VALUES <10 Performed By: #### A LC ####[facility], [place] [phone] BASIC METABOLIC PANELon - Anion gap 14 mmol/L Normal 10 - 20 [facility] Comment on above: Performed By: #### B MP ####[facility], [place] [phone] Bicarbonate (HCO3) 26 mmol/L Normal 21 - 32 [facility] Comment on above: Performed By: #### B MP ####[facility], [place] [phone] Calcium 9.0 mg/dL Normal 8.6 - 10.6 [facility] Comment on above: Performed By: #### B MP ####[facility], [place] [phone] Chloride 104 mmol/L Normal 98 - 107 [facility] Comment on above: Performed By: #### B MP ####[facility], [place] [phone] Creatinine 0.46 mg/dL Low 0.50 - 1.05 [facility] Comment on above: Performed By: #### B MP ####[facility], [place] [phone] eGFR (non-black) mL/min/{1.73_m2} Normal >60 [facility] Comment on above: Performed By: #### B MP ####[facility], [place] [phone] Result Comment: CALC ULATIONS OF ESTIMATED GFR ARE PERFORMED USING THE MDRD STUDY EQUATION FOR THE IDMS-TRACEABLE CREATININE METHODS. CLIN CHEM 2007;53:766-72 Glucose mass conc 123 mg/dL High 74 - 99 [facility] Comment on above: Performed By: #### B MP ####[facility], [place] [phone] Potassium molar conc 3.3 mmol/L Low 3.5 - 5.3 [facility] Comment on above: Performed By: #### B MP ####[facility], [place] [phone] Sodium 141 mmol/L Normal 136 - 145 [facility] Comment on above: Performed By: #### B MP ####[facility], [place] [phone] Urea nitrogen 17 mg/dL Normal 6 - 23 [facility] Comment on above: Performed By: #### B MP ####[facility], [place] [phone] BN RIBS, BILATERAL; W CXR IL N 4 VIEWSon 03-13-2017 BN RIBS, BILATERAL; [...] as stated. Data analyzed and imagesinterpreted at [facility],[place], [place].Electronically signed by: SURI PATRICK MD Normal [facility] BN SPINE, LUMBOSACRAL; 2 OR 3 VIEWSon 03-13-2017 BN SPINE, LUMBOSACRAL; 2 OR 3 VIEWS Name: TORSTEN COLINDRES STUDY:SPINE, LUMBAR ; 2 OR 3 VIEWS; [...] as stated. Data analyzed and imagesinterpreted at [facility],[place], [place].Electronically signed by: SURI PATRICK MD Normal [facility] CBCon 03-13-2017 Erythrocyte distribution width Auto Ratio (RBC) 14.6 % High 11.5 - 14.5 [facility] Comment on above: Performed By: #### C BC ####[facility], [place] [phone] Erythrocytes (RBC) 4.17 x10E12/L Normal 4.00 - 5.20 [facility] Comment on above: Performed By: #### C BC ####[facility], [place] [phone] Hematocrit (HCT) 35.9 % Low 36.0 - 46.0 [facility] Comment on above: Performed By: #### C BC ####[facility], [place] [phone] Hemoglobin mass conc (Bld) 12.2 g/dL Normal 12.0 - 16.0 [facility] Comment on above: Performed By: #### C BC ####[facility], [place] [phone] MCHC mass conc (RBC) 34.0 g/dL Normal 32.0 - 36.0 [facility] Comment on above: Performed By: #### C BC ####[facility], [place] [phone] MCV 86 fL Normal 80 - 100 [facility] Comment on above: Performed By: #### C BC ####[facility], [place] [phone] Nucleated erythrocytes 0.0 /100 WBC Normal 0.0-0.0 [facility] Comment on above: Performed By: #### C BC ####[facility], [place] [phone] Platelets 194 10*3/uL Normal 150 - 450 [facility] Comment on above: Performed By: #### C BC ####[facility], [place] [phone] WBC (Leukocytes) 7.9 10*3/uL Normal 4.4 - 11.3 [facility] Comment on above: Performed By: #### C BC ####[facility], [place] [phone] LACTATEon 03-13-2017 Lactate 1.4 mmol/L Normal 0.4 - 2.0 [facility] Comment on above: Result Comment: Maggi puncture immediately after or during the administration of Metamizole may lead to falsely low results. Testing should be performed immediately prior to Metamizole dosing. Performed By: #### L ACT ####[facility], [place] [phone] C-SPINE WO Con [address] C-SPINE WO C Name: DESTINTORSTEN ROELLANA STUDY:NR CT C-SPINE WO C; 03/13/2017 3:36 pm INDICATION:Signs/Symptom s: [facility]. COMPARISON:None. ORDERING CLINICIAN:ZENON SILVERMAN TECHNIQUE:Thin [...] multilevelcervical spondylosis. [facility]Electronic ally signed by: MANJU GRAY MD Normal [facility] NR CT FACIAL BONESon [address] FACIAL BONES Name: TORSTEN COLINDRES STUDY:NR CT HEAD WO CONT; NR CT FACIAL BONES; 03/13/2017 3:36 pm INDICATION:Signs/Symptom s: mech fall forward. COMPARISON:None. [id number] ORDERING CLINICIAN:ZENON SILVERMAN TECHNIQUE:Axial CT images images [...] in origin. The study was interpreted at [facility].Electronic ally signed by: MANJU GRAY MD Normal [facility] NR CT HEAD WO CONTon [address] HEAD WO CONT Name: TORSTEN COLINDRES STUDY:NR CT HEAD WO CONT; NR CT FACIAL BONES; 03/13/2017 3:36 pm INDICATION:Signs/Symptom s: mech fall forward. COMPARISON:None. [id number] ORDERING CLINICIAN:ZENON SILVERMAN TECHNIQUE:Axial CT images images [...] in origin. The study was interpreted at [facility].Electronic ally signed by: MANJU GRAY MD Normal [facility] PT/INRon 03-13-2017 INR Coag RelTime (PPP) 1.0 {INR} Normal 0.9 - 1.1 [facility] Comment on above: Performed By: #### P TINR ####[facility], [place] [phone] Prothrombin time (PT) Coag time (PPP) 11.4 s Normal 9.8 - 12.7 [facility] Comment on above: Result Comment: NOTE NEW REFERENCE RANGE. Performed By: #### P TINR ####[facility], [place] [phone] TH CHEST 1 VIEWon 03-13-2017 TH CHEST [...] as stated. Data analyzed and imagesinterpreted at [facility],[place], [place].Electronically signed by: SURI PATRICK MD Normal [facility] UA MICROSCOPICon 03-13-2017 CA OXALATE CRYSTAL 2+ /HPF Abnormal [facility] Comment on above: Performed By: #### U AMIC ####[facility], [place] [phone] Erythrocytes (RBC) 2 /HPF Normal 0-5 [facility] Comment on above: Performed By: #### U AMIC ####[facility], [place] [phone] HYALINE CAST 2+ /LPF Abnormal [facility] Comment on above: Performed By: #### U AMIC ####[facility], [place] [phone] RENAL EPITH. CELLS <1 Normal [facility] Comment on above: Performed By: #### U AMIC ####[facility], [place] [phone] SQUAMOUS EPITH. CELLS 23 /HPF Normal [facility] Comment on above: Performed By: #### U AMIC ####[facility], [place] [phone] TRANSITIONAL EPITH.CELLS 1 /HPF Normal [facility] Comment on above: Performed By: #### U AMIC ####[facility], [place] [phone] Urine, mucus presence in sediment 1+ /LPF Normal [facility] Comment on above: Performed By: #### U AMIC ####[facility], [place] [phone] WBC (Leukocytes) 4 /HPF Normal 0-5 [facility] Comment on above: Performed By: #### U AMIC ####[facility], [place] [phone] URINALYSISon 03-13-2017 Bilirubin (total) Negative Normal NEGATIVE [facility] Comment on above: Performed By: #### U A ####[facility], [place] [phone] BLOOD Negative Normal NEGATIVE [facility] Comment on above: Performed By: #### U A ####[facility], [place] [phone] Glucose mass conc Negative Normal NEGATIVE [facility] Comment on above: Performed By: #### U A ####[facility], [place] [phone] pH of blood 5.0 [pH] Normal 5.0 - 8.0 [facility] Comment on above: Performed By: #### U A ####[facility], [place] [phone] Protein Negative Normal NEGATIVE [facility] Comment on above: Performed By: #### U A ####[facility], [place] [phone] Urine, appearance HAZY Normal CLEAR [facility] Comment on above: Performed By: #### U A ####[facility], [place] [phone] Urine, color YELLOW Normal STRAW,YELLO W [facility] Comment on above: Performed By: #### U A ####[facility], [place] [phone] Urine, ketones presence 20 (1+) Abnormal NEGATIVE [facility] Comment on above: Performed By: #### U A ####[facility], [place] [phone] Urine, leukocyte esterase presence SMALL (1+) Abnormal NEGATIVE [facility] Comment on above: Performed By: #### U A ####[facility], [place] [phone] Urine, nitrite presence Negative Normal NEGATIVE [facility] Comment on above: Performed By: #### U A ####[facility], [place] [phone] Urine, specific gravity 1.030 Normal 1.00 5 - 1.035 [facility] Comment on above: Performed By: #### U A ####[facility], [place] [phone] Urine, urobilinogen <2.0 Normal 0.0 - 1.9 [facility] Comment on above: Performed By: #### U A ####[facility], [place] [phone] No Panel Information Influenza Types A,B Direct FA ([facility] [place] [facility] Work Phone: Vital Signs Date Time Vital Sign Value Performing Clinician Vimali ronna 03-28-2025 13:03-0400 Diastolic blood pressure 58 mm[Hg] Dr. Leandro Lua MD Work Phone: [facility] 03-28-2025 13:03-0400 Heart rate 72 /min Dr. Leandro Lua MD Work Phone: [facility] 03-28-2025 13:03-0400 Systolic blood pressure 104 mm[Hg] Dr. Leandro Lua MD Work Phone: [facility] 01-26-2025 14:19-0400 Body height 165.[address] Leandro Lua MD Work Phone: [facility] 01-26-2025 14:19-0400 Body mass index (BMI) [Ratio] 31.2 kg/m2 Dr. Leandro Lua MD Work Phone: [facility] 01-26-2025 14:19-0400 Body weight 85.[address] Leandro Lua MD Work Phone: [facility] 01-26-2025 14:19-0400 Diastolic blood pressure 63 mm[Hg] Dr. Leandro Lua MD Work Phone: [facility] 01-26-2025 14:19-0400 Heart rate 72 /min Dr. Leandro Lua MD Work Phone: [facility] 01-26-2025 14:19-0400 Respiratory rate 16 /min Dr. Leandro Lua MD Work Phone: [facility] 01-26-2025 14:19-0400 Systolic blood pressure 106 mm[Hg] Dr. Leandro Lua MD Work Phone: 5(208)821-876360 [place] [address] 12-07-2024 14:03-0400 Heart rate 78 /min Dr. Leandro Lua MD Work Phone: 5(775)074-116160 [place] [address] 12-07-2024 14:00-0400 Body temperature 98.5 [degF] Dr. Leandro Lua MD Work Phone: 7(312)915-291060 [place] [address] 12-07-2024 14:00-0400 Diastolic blood pressure 55 mm[Hg] Dr. Leandro Lua MD Work Phone: 0(000)160-586626 [place] [address] 12-07-2024 14:00-0400 Respiratory rate 18 /min Dr. Leandro Lua MD Work Phone: 3(095)228-123326 [place] [address] 12-07-2024 14:00-0400 SaO2% (BldA) [Mass fraction] 94 % Dr. Leandro Lua MD Work Phone: 8(869)688-166126 [place] [address] 12-07-2024 14:00-0400 Systolic blood pressure 136 mm[Hg] Dr. Leandro Lua MD Work Phone: 5(669)257-612026 [place] [address] 12-06-2024 17:34-0400 Body height 165.[address] Leandro Lua MD Work Phone: 6(255)024-789426 [place] [address] 12-06-2024 17:34-0400 Body mass index (BMI) [Ratio] 34.7 kg/m2 Dr. Leandro Lua MD Work Phone: 8(053)583-065326 [place] [address] 12-06-2024 17:34-0400 Body weight 94.[address] Leandro Lua MD Work Phone: 5(780)765-027026 [place] [address] 11-25-2024 12:08-0400 Body temperature 98 [degF] Dr. Leandro Lua MD Work Phone: 6(358)277-013426 [place] [address] 11-25-2024 12:08-0400 Diastolic blood pressure 64 mm[Hg] Dr. Leandro Lua MD Work Phone: 3(565)278-005426 [place] [address] 11-25-2024 12:08-0400 Heart rate 74 /min Dr. Leandro Lua MD Work Phone: [facility] 11-25-2024 12:08-0400 Respiratory rate 14 /min Dr. Leandro Lua MD Work Phone: 0(619)874-919860 [place] [address] 11-25-2024 12:08-0400 SaO2% (BldA) [Mass fraction] 92 % Dr. Leandro Lua MD Work Phone: 4(772)083-899660 [place] [address] 11-25-2024 12:08-0400 Systolic blood pressure 110 mm[Hg] Dr. Leandro Lua MD Work Phone: 2(255)421-203826 [place] [address] 11-25-2024 11:30-0400 Body mass index (BMI) [Ratio] 36.1 kg/m2 Dr. Leandro Lua MD Work Phone: 6(173)761-960960 [place] [address] 11-25-2024 11:30-0400 Body weight 98.[address] Leandro Lua MD Work Phone: 2(181)543-443726 [place] [address] 11-25-2024 09:27-0400 Body height 165.[address] Leandro Lua MD Work Phone: 7(072)454-861226 [place] [address] 10-08-2023 14:12-0500 Body height 165.[address] Leandro Lua Work Phone: 5(372)742-640526 [place] [address] 10-08-2023 14:12-0500 Body mass index (BMI) [Ratio] 37.4 kg/m2 Dr. Leandro Lua Work Phone: 6(436)050-616460 [place] [address] 10-08-2023 14:12-0500 Body temperature 97.7 [degF] Dr. Leandro Lua Work Phone: 0(335)351-605260 [place] [address] 10-08-2023 14:12-0500 Body weight 102.[address] Leandro Lua Work Phone: 1(025)431-299960 [place] [address] 10-08-2023 14:12-0500 Heart rate 86 /min Dr. Leandro Lua Work Phone: 8(097)797-966826 [place] [address] 10-08-2023 14:12-0500 Respiratory rate 16 /min Dr. Leandro Lua Work Phone: 6(989)914-019260 [place] [address] 10-08-2023 14:12-0500 SaO2% (BldA) [Mass fraction] 97 % Dr. Leandro Lua Work Phone: [facility] 04-24-2022 12:47-0400 Body height 163.[address] Leandro Lua Work Phone: [facility] Work Phone: 04-24-2022 12:47-0400 Body mass index (BMI) [Ratio] 41.2 kg/m2 Dr. Leandro Lua Work Phone: [facility] Work Phone: 04-24-2022 12:47-0400 Body temperature 98 [degF] Dr. Leandro Lua Work Phone: [facility] Work Phone: 04-24-2022 12:47-0400 Body weight 110.[address] Leandro Lua Work Phone: [facility] Work Phone: 04-24-2022 12:47-0400 Diastolic blood pressure 92 mm[Hg] Dr. Leandro Lua Work Phone: [facility] Work Phone: 04-24-2022 12:47-0400 Heart rate 102 /min Dr. Leandro Lua Work Phone: [facility] Work Phone: 04-24-2022 12:47-0400 Respiratory rate 16 /min Dr. Leandro Lua Work Phone: [facility] Work Phone: 04-24-2022 12:47-0400 SaO2% (BldA) [Mass fraction] 95 % Dr. Leandro Lua Work Phone: [facility] Work Phone: 04-24-2022 12:47-0400 Systolic blood pressure 158 mm[Hg] Dr. Leandro Lua Work Phone: [facility] Work Phone: Encounters Encounter Date Encounter Type Care Provider Facility Start: 03-28-2025 End: 03-28-2025 Patient encounter procedure Silvio MENENDEZ -[facility] Work Phone: Start: 03-28-[address] Manju Martinez MD -Cardiovascular Services Work Phone: Start: 03-28-2025 End: 03-28-2025 ambulatory Leandro [place] [facility] Facility:[facility] Start: 02-20-2025 End: 02-20-[address] Leandro Lua MD Work Phone: -Laboratory Phy Office 3rd Flr Start: 02-20-2025 End: 02-20-[address] Leandro Lua MD -Laboratory Phy Office 3rd Flr Start: 02-20-2025 End: 02-20-2025 ambulatory Leandro [place] Facility:[facility] Start: 02-01-2025 ambulatory Leandro [place] Facility:[facility] Start: 02-01-[address] Marlo Martinez MD -Cardiovascular Services Work Phone: Start: 01-26-2025 End: 01-26-[address] Manju Martinez MD -[facility] Work Phone: Start: 01-26-2025 End: 01-26-[address] Leandro Lua MD Work Phone: [facility] Work Phone: Start: 01-17-2025 End: 01-17-[address] Leandro Lua MD Work Phone: [facility] Work Phone: Start: 01-17-2025 End: 01-17-[address] Leandro Lua MD -Laboratory Specimen Work Phone: Start: 01-17-2025 End: 01-17-2025 ambulatory Leandro [place] Facility:[facility] Start: 01-10-2025 End: 01-10-[address] Leandro Lua MD Work Phone: [facility] Work Phone: Start: 01-10-2025 End: 01-10-[address] Leandro Lua MD -Laboratory Specimen Work Phone: Start: 01-10-2025 End: 01-10-[facility] Start: 12-28-2024 End: 12-28-[address] Leandro Lua MD Work Phone: [facility] Work Phone: Start: 12-28-2024 End: 12-28-[address] Leandro Lua MD -Laboratory Specimen Work Phone: Start: 12-28-2024 End: 12-28-2024 [facility] Start: 12-20-2024 End: 12-20-[address] Leandro Lua MD Work Phone: [facility] Work Phone: Start: 12-20-2024 End: 12-20-[address] Leandro Lua MD -Laboratory Work Phone: Start: 12-20-2024 End: 12-20-2024 [facility] Start: 12-13-2024 End: 12-13-[address] Leandro Lua MD Work Phone: [facility] Work Phone: Start: 12-13-2024 End: 12-13-[address] Leandro Lua MD -Radiology, [facility] Work Phone: Start: 12-13-2024 End: 12-13-2024 [facility] Start: 12-07-2024 Non-patient / Non-visit Dr. Tonya Cortez DO -[facility] Work Phone: Start: 12-06-2024 Non-patient / Non-visit Dr. Tonya Cortez DO [facility] Work Phone: Start: 12-05-2024 Non-patient / Non-visit Dr. Tonya Cortez DO [facility] Work Phone: Start: 12-04-2024 Non-patient / Non-visit Dr. Tonya Cortez DO [facility] Work Phone: Start: 12-03-2024 Non-patient / Non-visit Dr. Thao Davis MD [facility] Work Phone: Start: 12-02-2024 ambulatory Leandro [place] [facility] Facility:[facility] Start: 12-02-2024 End: 12-07-2024 Evaluation and management of inpatient Dr. Tonya Cortez DO [facility] 3 Work Phone: Start: 12-02-2024 Non-patient / Non-visit Dr. Thao Davis MD [facility] Work Phone: Start: 12-01-2024 Non-patient / Non-visit Dr. Thao Davis MD [facility] Work Phone: Start: 11-30-2024 Non-patient / Non-visit Dr. Thao Davis MD [facility] Work Phone: Start: 11-29-2024 End: 11-29-2024 ambulatory Leandro [place] [facility] Facility:[facility] Start: 11-29-2024 End: 11-29-2024 Non-patient / Non-visit Dr. Manju Martinez MD -[facility] Work Phone: Start: 11-29-2024 Non-patient / Non-visit Dr. Thao Davis MD [facility] Work Phone: Start: 11-28-2024 Non-patient / Non-visit Dr. Thao Davis MD [facility] Work Phone: Start: 11-27-2024 ambulatory Leandro [place] [facility] Facility:[facility] Start: 11-27-2024 Non-patient / Non-visit Dr. Thao Davis MD -[facility] Work Phone: Start: 11-26-2024 Non-patient / Non-visit Dr. Tonya Cortez DO -[facility] Work Phone: Start: 11-25-2024 Non-patient / Non-visit Dr. Tonya Cortez DO -[facility] Work Phone: Start: 11-25-2024 ambulatory [facility]andro [facility] Facility:[facility] Start: 11-25-2024 Evaluation and management of inpatient Dr. Tonya Cortez DO -[facility] Work Phone: Start: 11-25-[address] Leandro Lua MD Work Phone: [facility] Work Phone: Start: 11-21-2024 End: 11-21-[address] eLandro Lua MD Work Phone: [facility] Work Phone: Start: 11-21-2024 End: 11-21-[address] Leandro Lua MD -Laboratory Work Phone: Start: 11-21-2024 End: 11-21-2024 ambulatory Leandro [place] Facility:[facility] Start: 10-17-2024 End: 10-17-[address] Leandro Lua MD Work Phone: [facility] Work Phone: Start: 10-17-2024 End: 10-17-[address] Leandro Lua MD -Laboratory, Phy Office 3rd Flr Start: 10-17-2024 End: 10-17-2024 ambulatory Leandro [place] Facility:[facility] Start: 06-28-2024 End: 06-28-2024 ambulatory Leandro Chi Stoney Facility:[facility] Start: 05-22-2024 End: 05-22-2024 ambulatory Leandro Chi [facility] Facility:[facility] Start: 11-16-2023 End: 11-16-[address] Leandro Lua Work Phone: [facility] Work Phone: Start: 11-16-2023 End: 11-16-[address] Leandro Lua Work Phone: [facility]-Laboratory, Phy Office 3rd Flr Start: 10-08-2023 End: 10-08-[address] Leandro Lua Work Phone: [facility] Work Phone: Start: 08-05-2023 End: 08-05-2023 ambulatory [facility] Work Phone: Start: 08-05-2023 End: 08-05-2023 [facility] Start: 05-18-2023 End: 05-18-2023 [facility] Start: 08-25-2022 End: 08-25-2022 ambulatory [facility] Work Phone: Start: 08-25-2022 End: 08-25-2022 Patient encounter procedure [facility]-Radiology, [facility] Start: 08-13-2022 End: 08-13-2022 Patient encounter procedure [facility]-Laboratory, Phy Office 3rd Flr Start: 05-11-2022 End: 05-11-[address] Leandro Lua Work Phone: [facility] Work Phone: Start: 05-11-2022 End: 05-11-[address] [facility] Start: 04-24-2022 End: 04-24-[address] [facility] Start: 03-09-2022 End: 03-09-2022 Patient encounter procedure [facility]-Laboratory, Phy Office 3rd Flr Start: 02-27-2022 End: 02-27-2022 Patient encounter procedure [facility]-Pulmonary Services/Neurology Start: 02-26-2022 End: 02-26-2022 [facility] Start: 02-02-2022 End: 02-02-2022 [facility] Start: 11-05-2021 End: 11-05-2021 Patient encounter procedure [facility]-Laboratory, Phy Office 3rd Flr Start: 10-06-2021 End: 10-06-2021 Patient encounter procedure [facility]-Pulmonary Services/Neurology Start: 10-01-2021 End: 10-01-2021 [facility] Start: 09-30-2021 End: 09-30-2021 Patient encounter procedure [facility]-Radiology, [facility] Start: 09-16-2021 End: 09-16-2021 [facility] Start: 03-18-2017 Observation care discharge management Abelino Capellan [facility] Start: 03-17-2017 Sbsq observation care/day 25 minutes Abelino Capellan [facility] Start: 03-16-2017 Sbsq observation care/day 25 minutes Abelino Capellan [facility] Start: 03-15-2017 Sbsq observation care/day 25 minutes Abelino Capellan [facility] Start: 03-14-2017 Sbsq observation care/day 25 minutes Abelino Capellan [facility] Start: 03-13-2017 End: 03-18-2017 Ambulatory Abelinotiffanie Capellan Facility:[facility] Start: 03-13-2017 Initial observation care/day 50 minutes Abelino Capellan [facility] Start: 03-28-2016 End: 03-29-2016 Ambulatory LUIS E ORTIZ Facility:[facility] Procedures Date Procedure Procedure Detail Performing [...] Treatment Date Care Activity Detail Author Start: 02-01-2025 Cardiac event recording [facility] Start: 01-26-2025 Evaluation of diagno stic study results [facility] Start: 12-07-2024 Patient discharge [facility] Start: 12-07-2024 Referral to service [facility] Start: 12-05-2024 Consultation [facility] Start: 12-05-2024 [facility] Start: 12-04-2024 Care planning and pr oblem solving actions [facility] Start: 12-02-2024 Admission procedure [facility] Start: 11-29-2024 Care planning and pr oblem solving actions [facility] Start: 11-29-2024 [facility] Start: 11-27-2024 End: 11-28-2024 [facility] Start: 11-27-2024 [facility] Start: 11-26-2024 Consultation for pain [facility] Start: 11-25-2024 Ambulation without limitation [facility] Start: 11-25-2024 Assessment of risk o f venous thromboembolism [facility] Start: 11-25-2024 Catheterization of vein [facility] Start: 11-25-2024 Inhalation therapy procedure [facility] Start: 11-25-2024 Insertion of cathete r into peripheral vein [facility] Start: 11-25-2024 Providing care accor ding to standard [facility] Start: 11-25-2024 Referral to occupati onal therapist [facility] Start: 11-25-2024 Referral to service [facility] Start: 11-25-2024 [facility] Start: 11-25-2024 Following clinical p athway protocol [facility] Start: 11-25-2024 [facility] Start: 11-25-2024 Verification routine [facility] Start: 11-25-2024 Hospital admission, emergency, from emergency room, medical nature [facility] Start: 11-25-2024 Admission procedure [facility] Start: 11-25-2024 [facility] Bilirubin measurement, urine [facility] Cardiac event recording [facility] Hemoglobin [Presence] in Urine [facility] Measurement of keton es in urine using dipstick [facility] Microscopic urinalysis [facility] Patient referral [facility] Work Phone: pH of Urine [facility] Specific gravity of Urine [facility] Urine blood test [facility] Urine dipstick for glucose [facility] Urine dipstick for l eukocyte esterase [facility] Urine dipstick for nitrite [facility] Urine dipstick for protein [facility] Urine examination [facility] Urine microscopy: ep ithelial cells [facility] Urine Microscopy: white cells [facility] Urobilinogen [Presence] in Urine [facility] Immunizations Immunization Date Immunization Notes Care Provider Jesenia marquez 06-10-2015 [facility], [facility], [facility] Payers Date Payer Category Payer Self-pay [id number] 2024 Unknown [id number] Medicare [id number] Medicare AN[employer]M MEDICARE SENIOR [employer]VANTA [id number] Unknown [id number] Unknown [id number] Unknown [id number] 2.0.1.608921.3.579.2.462 Unknown [id number] 2.0.1.045128.3.579.2.462 Unknown [id number] 2.840.1.365858.3.579.2.462 Unknown [id number] 2.840.1.952104.3.579.2.462 Unknown [id number] 2.840.1.702923.3.579.2.462 Unknown [id number] 2.840.1.674781.3.579.2.462 Unknown [id number] 2.0.1.110736.3.579.2.462 Unknown [id number] 2.16.840.1.542790.3.579.2.462 Unknown [id number] 2.16.840.1.567125.3.579.2.462 Unknown [id number] 2.16.840.1.016346.3.579.2.462 Unknown [id number] 2.16.840.1.718615.3.579.2.462 Unknown [id number] 2.16.840.1.193867.3.579.2.462 Unknown [id number] 2.16.840.1.466853.3.579.2.462 Unknown [id number] 2.16.840.1.478983.3.579.2.462 Unknown [id number] 2.16.840.1.059127.3.579.2.462 Unknown [id number] 2.16.840.1.167465.3.579.2.462 Unknown [id number] 2.16.840.1.682879.3.579.2.462 Unknown [id number] 2.16.840.1.170391.3.579.2.462 Unknown [id number] 2.16.840.1.332185.3.579.2.462 Unknown [id number] 2.16.840.1.420212.3.579.2.462 Unknown [id number] 2.16.840.1.912614.3.579.2.462 Unknown [id number] 2.16.840.1.564626.3.579.2.462 Unknown [id number] 2.16.840.1.747365.3.579.2.462 Unknown [id number] 2.16.840.1.416767.3.579.2.462 Unknown [id number] 2.16.840.1.104821.3.579.2.462 Unknown [id number] 2.16.840.1.638857.3.579.2.462 Unknown [id number] 2.16.840.1.965532.3.579.2.462 Unknown [id number] 2.16.840.1.786791.3.579.2.462 Unknown [id number] 2.16.840.1.849186.3.579.2.462 Social History Date Type Detail Facility Start: 02-26-2021 End: 10-08-2023 Tobacco smoking status GAIS Unknown if ever smoked [facility] Start: 1940 Sex Assigned At Female [facility] Start: 03-19-2017 None [facility] Start: 03-19-2017 Spouse/ Signif icant Other [facility] Start: 03-19-2017 Non-smoker [facility] Start: 10-08-2023 End: 01-24-2025 Tobacco smoking status NHIS Ex-smoker (finding) [facility] Start: 10-31-2024 End: 11-25-2024 Sex Female (finding) [facility] Not [facility] NEGATED: Highlighted row Not [facility] Medical Equipment Procedure Code Equipment Code Equipment Origin al Text Equipment Identifier Dates Kyphoplasty Orthopaedic ceme nt preparation/delivery kit ([id number] FDA Start: 11-29-2024 Kyphoplasty ELEANOR KYPHO [...] Assessment Result Facility 12-07-2024 Functional status Ambulates [facility] Work Phone: Mental Status Date Assessment Result Facility 12-07-2024 Cognitive function Level Of Cons ciousness Awake;Alert;Appropriate;Follow s Commands [facility] Work Phone: 12-07-2024 Cognitive function Voice/Name [facility] Work Phone: Clinical Notes 11-25-2024 to 12-13-2024 Note Date & Type Note Facility 12-13-2024 Radiology Diagnostic study note [facility] Imaging Services [address] [place] [address] Chest PA and Lateral MR#: [id number] Acct: [id number] Name: TORSTEN COLINDRES Rep #: [id number] : 1940 F 84 From: Travon Mayo DO PCP: Dr. Leandro Lua MD Status: MARTY JONES Study:Chest PA and Lateral Date of Exam: 12/13/24 Exam# [id number] Ordering Dr: Leandro Lua MD PROCEDURE: CHEST [...] of value if clinically warranted. Reading Location: [id number] CC: Dr. Leandro Lua MD ~ Client Experience Manager: Signed [facility] 12-07-2024 Note [facility] Medical Records Department [address] [place] [address] Discharge Summary 12/07/24 1358 MR#: [id number] Acct: [id number] Name: TORSTEN COLINDRES Rep #: [id number] : 1940 84 From: Tonya Cortez DO PCP: Dr. Leandro Lua MD Status:ADM IN Location: [facility] [id number] Providers Date of Admission: 12/02/24 Date of [...] who presented to the emergency department at [facility] on 11/25/2024 with a chief complaint of [...] move her legs in and out of th (more content not included)... [facility] 12-02-2024 Evaluation note Diagnosis Onset Date Resolution Infection due to ESBL-producing Escherichia coli acute December 02 11:50am Intractable low back pain resolved December 02, 2024 11:50am Age-related osteoporosis with current pathological fracture, unspecified si inactive December 02, 2024 11:50am Collapse of lumbar vertebra inactive December 02, 2024 11:50am Compression fracture of L1 lumbar vertebra inactive December 02, 025 11:50am DDD (degenerative disc disease), lumbar inactive December 02 11:50am Disease of bone and joint inactive December 02, 2024 11:50am Wedge compression fracture of T12 vertebra inactive December 02, 2024 11:50am [facility] Work Phone: 1(241) 578-847804-19-2025 Evaluation note* Diagnosis Onset Date Resolution Status Admit Date Infection due to ESBL-produc ing Escherichia coli acute December 02 11:50am Intractable low back pain resolved December 02, 2024 11:50am Age-related osteoporosis wit h current pathological fracture, unspecified si inactive December 02, 2024 11:50am Collapse of lumbar vertebra inactive December 02, 2024 11:50am Compression fracture of L1 lumbar vertebra inactive December 02, 2024 11:50am DDD (degenerative disc disease), lumbar inactive December 02 11:50am Disease of bone and joint inactive December 02, 2024 11:50am Wedge compression fracture o f T12 vertebra inactive December 02, 2024 11:50am Bilateral lower extremity edema acut e January 26, 2025 2:19pm SVT (supraventricular tachycardia) acute January 26, 2025 2:19pm Hypertension chronic January 26 025 2:19pm [facility] Work Phone: 1(990) 655-651804-15-[address] [facility] Medical Records Department [address] [place] [address] Consultation 11/28/24 0920 MR#: [id number] Acct: [id number] Name: TORSTEN COLINDRES Rep #: [id number] : 1940 84 From: Haile Ramirez MD PCP: Dr. Leandro Lua MD Status:ADM LLOYD Location: [place] [id number] Assessment Plan Assessment/Plan (1) Age-related osteoporosis with [...] Medication has helped take the edge off. [facility] Medical History Hemorrhoids Cancer Arthritis Hypertension GERD [...] Smoking Status: Former smok (more content not included)...[facility]04-14-2025 [facility] Medical Records Department [address] [place] [address] Consultation 11/27/24 1251 MR#: [id number] Acct: [id number] Name: TORSTEN COLINDRES Rep #: [id number] : 1940 84 From: Haile Ramirez MD PCP: Dr. Leandro Lua MD Status:ADM LLOYD Location: MS3 [id number] Assessment Plan Assessment/Plan (1) Compression fracture of [...] bowel or bladder control or saddle anesthesia [facility] Medical History Hemorrhoids Cancer Arthritis Hypertension GERD [...] eye drops 1 drp ophthalmic (eye) TID 2 5 11/25/24 History magnesium oxide 400 mg [...] 11/24/24 History release prednisone (more content not included)...[facility]04-12-2025 Evaluation note* Diagnosis Onset Date Resolution Status Admit Date DDD (degenerative disc disease), lumbar acute November 25 11:27am Intractable low back pain acute November 25, 2024 11:27am [facility] Work Phone: [phone] 608-402504-12-2025 Radiology Diagnostic study note [facility] Imaging Services [address] [place], [place] [id number] Spine Lumbar without Contrast MR#: [id number] Acct: [id number] Name: TORSTEN COLINDRES Rep #: [id number] : 1940 F 84 From: Isatu Capone MD PCP: Dr. Leandro Lua MD Status: REG E R Study:Spine Lumbar without Contrast Date of E xam: 11/25/24 Exam# [id number] Ordering Dr: Megan Cortez DO PROCEDURE: SPINE [...] ACUTE LUMBAR FRACTURE. DEGENERATIVE CHANGES. Reading Location: [facility] CC: Dr. Tonya Cortez DO; Dr. Leandro Lua MD ~ Client Experience Manager: Signed [facility]04-12-2025 Radiology Diagnostic study note [facility] Imaging Services [address] [place] [address] [id number] Lumbar Spine 2 or 3 Views MR#: [id number] Acct: [id number] Name: TORSTEN COLINDRES Rep #: [id number] : 1940 F 84 From: Isatu Capone MD PCP: Dr. Leandro Lua MD Status: REG E R Study:Lumbar Spine 2 or 3 Views Date of Exam: 11/25/24 Exam# [id number] Ordering Dr: Lashawn De La Cruz PROCEDURE: [...] CHANGES OF THE LUMBAR SPINE. Reading Location: [id number] CC: Dr. Leandro Lua MD; SHON Uribe ~ Client Experience Manager: Signed [facility] noteNo assessment information available [facility] Work Phone: Evaluation note* Diagnosis Onset Date Resolution Status Acute sinusitis acute [facility] Work Phone: Reason for referral (narrative)No reason for referral [facility] Work Phone: Summary Purpose Family History Relationship Condition Age at Onset Recorded Date/T [...] Unknown March 26, 2023 1:58pm Advance Directives Advance Directive Response Recorded Date/ Time Advance Directives No August 24, 2016 3:36pm Living Will No February 26, 2021 11:16am Power of Leather Goods Maker No February 26 11:16am Advance Directive Response Recorded Date/ Time Advance Directives No August 24, 2016 2:36pm Living Will No February 26, 2021 10:16am Power of Leather Goods Maker No February 26 10:16am Advance Directive Response Recorded Date/ Time Advance Directives No March 26, 2023 12:58pm Living Will No March 26 12:58pm Power of Leather Goods Maker No March 26 023 12:58pm Advance Directive Response Recorded Date/ Time Advance Directives No March 26, 2023 1:58pm Living Will No March 26 1:58pm Power of Leather Goods Maker No March 26 023 1:58pm Advance Directive Response Recorded Date/ Time Advance Directives No March 26, 2023 1:58pm Advance Directive Response Recorded Date/ Time Living Will Yes November 25, 2024 2:20pm Do you have a Healthcare Power of Leather Goods Maker? Yes November 25, 2024 2:20pm Name of Medical Power of Leather Goods Maker Jt Langley November 25, 2024 2:20pm Advance [...] LOW BACK PAIN November 25, 2024 11: 36am LOW BACK PAIN November 26, [...] T12 verteb ra December 02, 2024 11:50am Chief Complaint Admit Date LOW BACK PAIN November 25, 2024 11: 36am LOW BACK PAIN November 26, [...] of breath December 13, 2024 4:5 5pm SVTs (Stoney) January 26, 2025 2:19 pm Reason for Visit Admit Date Infection due [...] T12 verteb ra December 02, 2024 11:50am Bilateral lower extremity edema January 2:19pm SVT (supraventricular tachycardia) January 26, 2025 2:19pm Hypertension January 26, 2025 2:19 pm Chief Complaint Admit Date LOW BACK PAIN November 25, 2024 11: 36am LOW BACK PAIN November 26, [...] of breath December 13, 2024 4:5 5pm SVTs (Stoney) January 26, 2025 2:19 pm SVT February 01, 2025 6:03 am Chief Complaint Admit Date LOW BACK PAIN November 28, 2024 9:2 [...] of breath December 13, 2024 4:5 5pm SVTs (Stoney) January 26, 2025 2:19 pm SVT February 01, 2025 6:03 am Localized edema March 28, 2025 11 :01am HR and BP check per Silvio, see clinical March 28, 2025 12:47pm Additional Source Comments INFORMATION SOURCE (unrecogn ized section and content) DATE CREATED AUTHOR 02/08/2018 [facility] DATE CREATED AUTHOR AUTHOR'S ORGANIZ ATION 02/09/2018 [facility] DATE CREATED AUTHOR AUTHOR'S ORGANIZ ATION 03/18/2025 [facility] Goals (unrecognized section and content) Goals [...] 2024 End: October 17, 2024 Dr. Leandro Lua MD Attending Provider Active Start: October 17, [...] Active Member Role Status Dates Dr. Leandro uLa MD Primary Care Provider Active Start: November [...] Active Start: November 27, 2024 Dr. Eleonora Shapr MD Other Provider Active Star t: November [...] December 04, 2024 Dr. Tonya Cortez DO Admit Provider Active Start : December 04, [...] Star t: December 05, 2024 Dr. Haile Davsi MD Other Provider Active Start: December 05, [...] December 13, 2024 Dr. Leandro Lua MD Attending Provider Active Start: December 13, 2024 End: December 13, 2024 Dr. Leandro Lua MD Referring Provider Active Start: December 13, 2024 End: December 13, 2024 Team Status: Active Member Role Status Dates Dr. Leandro Lua MD Primary Care Provider Active Start: December 20, 2024 Dr. Laendro Lua MD Attending Provider Active Start: December [...] December 28, 2024 End: December 28, 2024 Team Status: Inactive Member Role Status Dates Dr. Leandro Lua MD Primary Care Provider Active Start: January 10, 2025 End: January 10, 2025 Dr. Leandro Lua MD Attending Provider Active Start: January 10, 2025 End: January 10, 2025 Dr. Leandro Lua MD Referring Provider Active Start: January 10, 2025 End: January 10, 2025 Team Status: Inactive Member Role Status Dates Dr. Leandro Lua MD Primary Care Provider Active Start: January 17, 2025 End: January 17, 2025 Dr. Leandro Lua MD Attending Provider Active Start: January 17, 2025 End: January 17, 2025 Dr. Leandro Lua MD Referring Provider Active Start: January 17, 2025 End: January 17, 2025 Team Status: Inactive Member Role Status Dates Dr. Leandro Lua MD Primary Care Provider Active Start: January 26, 2025 End: January 26, 2025 Dr. Leandro Lua MD Referring Provider Active Start: January 26, 2025 End: January 26, 2025 Dr. Manju Martinez MD Attending Provider Active Start: January 26, 2025 End: January 26, 2025 Team Status: Active Member Role/Relationship Status Dates Dr. Leandro Lua MD Primary Care Provider Active Team Status: Inactive Member Role/Relationship Status Dates Dr. Leandro Lua MD Primary Care Provider Active Start: November 21, 2024 End: November 21, 2024 Dr. Leandro Lua MD Attending Provider Active Start: November 21, 2024 End: November 21, 2024 Dr. Leandro Lua MD Referring Provider Active Start: November 21, 2024 End: November 21, 2024 Team Status: Active Member Role/Relationship Status Dates Dr. Leandro Lua MD Primary [...] November 25, 2024 Team Status: Active Member Role/Relationship Status Dates Dr. Leandro Lua MD Primary [...] November 26, 2024 Team Status: Active Member Role/Relationship Status Dates Dr. Leandro Lua MD Primary Care Provider Active Start: November 27, 2024 Dr. Tommie Chowdhury MD Attending Provider Active S tart: November 27, 2024 Dr. Tonya Cortez DO Referring Provider Active S tart: November 27, 2024 Team Status: Active Member Role/Relationship Status Dates Dr. Leandro Lua MD Primary [...] November 27, 2024 Team Status: Active Member Role/Relationship Status Dates Dr. Leandro Lua MD Primary [...] November 28, 2024 Team Status: Active Member Role/Relationship Status Dates Dr. Leandro Lua MD Primary [...] November 29, 2024 Team Status: Active Member Role/Relationship Status Dates Dr. Leandro Lua MD Primary Care Provider Active Start: November 29, 2024 End: November 29, 2024 Dr. Manju Martinez MD Attending Provider Active Start: November 29, 2024 End: November 29, 2024 Dr. Haile Davis MD Referring Provider Active Start: November 29, 2024 End: November 29, 2024 Team Status: Active Member Role/Relationship Status Dates Dr. Leandro Lua MD Primary [...] November 30, 2024 Team Status: Active Member Role/Relationship Status Dates Dr. Leandro Lua MD Primary [...] December 01, 2024 Team Status: Active Member Role/Relationship Status Dates Dr. Leandro Lua MD Primary [...] December 02, 2024 Team Status: Inactive Member Role/Relationship Status Dates Dr. Leandro Lua MD Primary [...] December 07, 2024 Team Status: Active Member Role/Relationship Status Dates Dr. Leandro Lua MD Primary [...] December 03, 2024 Team Status: Active Member Role/Relationship Status Dates Dr. Leandro Lua MD Primary Care Provider Active Start: December 04, 2024 Dr. Payam Aldridge MD Emergency Provider Active S tart: December 04, 2024 Dr. Tonya Cortez DO Admit Provider Active Start : December 04, 2024 Dr. Tonya Cortez DO Attending Provider Active S tart: December 04, 2024 Dr. Tonya Cortez DO Other Provider Active Start : December 04, 2024 Dr. Eleonora Sharp MD Other Provider Active Star t: December 04, 2024 Dr. Haile Davis MD Other Provider Active Start: December 04, 2024 Team Status: Active Member Role/Relationship Status Dates Dr. Leandro Lua MD Primary [...] December 05, 2024 Team Status: Active Member Role/Relationship Status Dates Dr. Leandro Lua MD Primary [...] December 06, 2024 Team Status: Active Member Role/Relationship Status Dates Dr. Leandro Lua MD Primary [...] December 07, 2024 Team Status: Inactive Member Role/Relationship Status Dates Dr. Leandro Lua MD Primary Care Provider Active Start: December 13, 2024 End: December 13, 2024 Dr. Leandro Lua MD Attending Provider Active Start: December 13, 2024 End: December 13, 2024 Dr. Leandro Lua MD Referring Provider Active Start: December 13, 2024 End: December 13, 2024 Team Status: Inactive Member Role/Relationship Status Dates Dr. Leandro Lua MD Primary Care Provider Active Start: December 20, 2024 End: December 20, 2024 Dr. Leandro Lua MD Attending Provider Active Start: December 20, 2024 End: December 20, 2024 Dr. Leandro Lua MD Referring Provider Active Start: December 20, 2024 End: December 20, 2024 Team Status: Inactive Member Role/Relationship Status Dates Dr. Leandro Lua MD Primary Care Provider Active Start: December 28, 2024 End: December 28, 2024 Dr. Leandro Lua MD Attending Provider Active Start: December 28, 2024 End: December 28, 2024 Dr. Leandro Lua MD Referring Provider Active Start: December 28, 2024 End: December 28, 2024 Team Status: Inactive Member Role/Relationship Status Dates Dr. Leandro Lua MD Primary Care Provider Active Start: January 10, 2025 End: January 10, 2025 Dr. Leandro Lua MD Attending Provider Active Start: January 10, 2025 End: January 10, 2025 Dr. Leandro Lua MD Referring Provider Active Start: January 10, 2025 End: January 10, 2025 Team Status: Inactive Member Role/Relationship Status Dates Dr. Leandro Lua MD Primary Care Provider Active Start: January 17, 2025 End: January 17, 2025 Dr. Leandro Lua MD Attending Provider Active Start: January 17, 2025 End: January 17, 2025 Dr. Leandro Lua MD Referring Provider Active Start: January 17, 2025 End: January 17, 2025 Team Status: Inactive Member Role/Relationship Status Dates Dr. Leandro Lua MD Primary Care Provider Active Start: January 26, 2025 End: January 26, 2025 Dr. Leandro Lua MD Referring Provider Active Start: January 26, 2025 End: January 26, 2025 Dr. Manju Martinez MD Attending Provider Active Start: January 26, 2025 End: January 26, 2025 Team Status: Active Member Role/Relationship Status Dates Dr. Manju Martinez MD Attending Provider Active Start: February 01, 2025 Dr. Manju Martinez MD Referring Provider Active Start: February 01, 2025 Dr. Leandro Lua MD Primary Care Provider Active Start: February 01, 2025 Team Status: Inactive Member Role/Relationship Status Dates Dr. Leandro Lua MD Primary Care Provider Active Start: February 20, 2025 End: February 20, 2025 Dr. Leandro Lua MD Attending Provider Active Start: February 20, 2025 End: February 20, 2025 Team Status: Active Member Role/Relationship Status Dates Dr. Leandro Lua MD Primary [...] November 28, 2024 Team Status: Active Member Role/Relationship Status Dates Dr. Leandro Lua MD Primary [...] Active Start: November 29, 2024 Dr. Eleonora Shrap MD Other Provider Active Star t: November 29, 2024 Team Status: Active Member Role/Relationship Status Dates Dr. Leandro Lua MD Primary Care Provider Active Start: November 29, 2024 End: November 29, 2024 Dr. Manju Martinez MD Attending Provider Active Start: November 29, 2024 End: November 29, 2024 Dr. Haile Davis MD Referring Provider Active Start: November 29, 2024 End: November 29, 2024 Team Status: Active Member Role/Relationship Status Dates Dr. Leandro Lua MD Primary Care Provider Active Start: November 30, 2024 Dr. Payam Aldridge MD Emergency Provider Active S tart: November 30, 2024 Dr. Tonya Cortez DO Admit Provider Active Start : November 30, 2024 Dr. Tonya Cortez DO Other Provider Active Start : November 30, 2024 Dr. aHile Davis MD Attending Provider Active Start: November 30, 2024 Dr. Haile Davis MD Other Provider Active Start: November 30, 2024 Dr. Eleonora Sharp MD Other Provider Active Star t: November 30, 2024 Team Status: Active Member Role/Relationship Status Dates Dr. Leandro Lua MD Primary [...] December 01, 2024 Team Status: Active Member Role/Relationship Status Dates Dr. Leandro Lua MD Primary [...] December 02, 2024 Team Status: Inactive Member Role/Relationship Status Dates Dr. Leandro Lua MD Primary [...] December 07, 2024 Team Status: Active Member Role/Relationship Status Dates Dr. Leandro Lua MD Primary [...] December 03, 2024 Team Status: Active Member Role/Relationship Status Dates Dr. Leandro Lua MD Primary Care Provider Active Start: December 04, 2024 Dr. Payam Aldridge MD Emergency Provider Active S tart: December 04, 2024 Dr. Tonya Cortez DO Admit Provider Active Start : December 04, 2024 Dr. Tonya Cortez DO Attending Provider Active S tart: December 04, 2024 Dr. Tonya Cortez DO Other Provider Active Start : December 04, 2024 Dr. Eleonora Sharp MD Other Provider Active Star t: December 04, 2024 Dr. Haile Davis MD Other Provider Active Start: December 04, 2024 Team Status: Active Member Role/Relationship Status Dates Dr. Leandro Lua MD Primary Care Provider Active Start: December 05, 2024 Dr. Payam Aldridge MD Emergency Provider Active S tart: December 05, 2024 Dr. Tonya Cortez , Admit Provider Active Start : December 05, [...] December 05, 2024 Team Status: Active Member Role/Relationship Status Dates Dr. Leandro Lua MD Primary [...] December 06, 2024 Team Status: Active Member Role/Relationship Status Dates Dr. Leandro Lua MD Primary [...] December 07, 2024 Team Status: Inactive Member Role/Relationship Status Dates Dr. Leandro Lua MD Primary Care Provider Active Start: December 13, 2024 End: December 13, 2024 Dr. Leandro Lua MD Attending Provider Active Start: December 13, 2024 End: December 13, 2024 Dr. Leandro Lua MD Referring Provider Active Start: December 13, 2024 End: December 13, 2024 Team Status: Inactive Member Role/Relationship Status Dates Dr. Leandro Lua MD Primary Care Provider Active Start: December 20, 2024 End: December 20, 2024 Dr. Leandro Lua MD Attending Provider Active Start: December 20, 2024 End: December 20, 2024 Dr. Leandro Lua MD Referring Provider Active Start: December 20, 2024 End: December 20, 2024 Team Status: Inactive Member Role/Relationship Status Dates Dr. Leandro Lua MD Primary Care Provider Active Start: December 28, 2024 End: December 28, 2024 Dr. Leandro Lua MD Attending Provider Active Start: December 28, 2024 End: December 28, 2024 Dr. Leandro Lua MD Referring Provider Active Start: December 28, 2024 End: December 28, 2024 Team Status: Inactive Member Role/Relationship Status Dates Dr. Leandro Lua MD Primary Care Provider Active Start: January 10, 2025 End: January 10, 2025 Dr. Leandro Lua MD Attending Provider Active Start: January 10, 2025 End: January 10, 2025 Dr. Leandro Lua MD Referring Provider Active Start: January 10, 2025 End: January 10, 2025 Team Status: Inactive Member Role/Relationship Status Dates Dr. Leandro Lua MD Primary Care Provider Active Start: January 17, 2025 End: January 17, 2025 Dr. Leandro Lua MD Attending Provider Active Start: January 17, 2025 End: January 17, 2025 Dr. Leandro Lua MD Referring Provider Active Start: January 17, 2025 End: January 17, 2025 Team Status: Inactive Member Role/Relationship Status Dates Dr. Leandro Lua MD Primary Care Provider Active Start: January 26, 2025 End: January 26, 2025 Dr. Leandro Lua MD Referring Provider Active Start: January 26, 2025 End: January 26, 2025 Dr. Manju Martinez MD Attending Provider Active Start: January 26, 2025 End: January 26, 2025 Team Status: Active Member Role/Relationship Status Dates Dr. Manju Martinez MD Attending Provider Active Start: February 01, 2025 Dr. Manju Martinez MD Referring Provider Active Start: February 01, 2025 Dr. Leandro Lua MD Primary Care Provider Active Start: February 01, 2025 Team Status: Inactive Member Role/Relationship Status Dates Dr. Leandro Lua MD Primary Care Provider Active Start: February 20, 2025 End: February 20, 2025 Dr. Leandro Lua MD Attending Provider Active Start: February 20, 2025 End: February 20, 2025 Team Status: Active Member Role/Relationship Status Dates Dr. Leandro Lua MD Primary Care Provider Active Start: March 28, 2025 Dr. Manju Martinez MD Attending Provider Active Start: March 28, 2025 Dr. Manju Martinez MD Referring Provider Active Start: March 28, 2025 Team Status: Inactive Member Role/Relationship Status Dates Dr. Leandro Lua MD Primary Care Provider Active Start: March 28, 2025 End: March 28, 2025 Dr. Leandro Lua MD Referring Provider Active Start: March 28, 2025 End: March 28, 2025 SHON Montero Attending Provider Active St art: March 28, 2025 End: March 28, 2025 FOR RECORDS PERTAINING TO PATIENTS WHO ARE [...] BE BASED ON THE PRIMARY CLINICAL RECORDS. [facility] [employer] provides no warranty or guarantee of the accuracy or completeness of information in this document.
== END | disposition home or self-care (01) ==
LOC: CVS 11:06
PROVIDERS: PCP Family Medicine Geriatric Medicine; Referring Provider Internal Medicine Cardiovascular Disease; Visit Provider Internal Medicine Cardiovascular Disease
DX: R60.0 Localized edema (principal)
CPT/HCPCS: 93306; A4216

== ENCOUNTER → 2025-05-02 | Outpatient (CLI) | payer MEDICARE, SELFPAY ==
--- NOTE | 2025-05-02 17:45 | RAD_ITS ---
PROCEDURE: HIP, UNI W/ PELVIS 2-3 VIEWS 05/02/2025 REASON FOR EXAM: PAIN TECHNIQUE: Procedure Code: [facility] Modality: DX Procedure: HIP, UNI W/ PELVIS 2-3 VIEWS Laterality: Right COMPARISON: Available priors FINDINGS: Bone mineralization is preserved. There is no acute fracture or dislocation. Degenerative changes of the right hip are noted. Lumbar spondylosis is present. No destructive bone lesion. Vascular calcifications noted. Suture leslie are present in the left lower quadrant related to prior surgery. RAD/HIP, UNI W/ Pelvis 2-3 Views IMPRESSION: Degenerative changes of the right hip. No acute fracture. Reading Location: [id number]
== END | disposition home or self-care (01) ==
LOC: RAD 17:32
PROVIDERS: PCP Family Medicine Geriatric Medicine; Referring Provider Anesthesiology; Visit Provider Anesthesiology
DX: M25.561 Pain in right knee (principal)
CPT/HCPCS: 73502

== ENCOUNTER → 2025-05-30 | Outpatient (CLI) | payer MEDICARE, SELFPAY ==
[2025-05-30 17:22] LABS: Hematocrit 37.1 % (37-47); Hemoglobin 12.0 g/dL (12.0-15.0); Immature Granulocytes Count 0.040 X10^3/uL (0.0-0.0); Mean Corp Hgb Conc 32.3 g/dL (32-36); Mean Corpuscular Volume 96.9 fL (81-99); Mean Platelet Vol. 10.3 fl (6.2-12.0); NRBC Flagged by Analyzer 0 % (0-5); Platelet Count 269 K/mm3 (150-450); RBC Distribution Width CV 13.8 % (11.6-14.6); RBC Distribution Width SD 48.7 fl (35.1-43.9); Red Blood Count 3.83 M/mm3 (4.2-5.4); White Blood Count 6.4 K/mm3 (4.4-11.0)
[2025-05-30 18:43] LABS: Cholesterol 168 mg/dL (<=200); Low Density Lipoprotein Calc. 83 mg/dL; Triglycerides 104 mg/dL; Very Low Density Lipoprotein 21 mg/dL (5-40); Vitamin D,25 Hydroxy 41.7 ng/mL (30-100); cholesterol:hdl ratio screen 2.62
[2025-05-30 19:03] LABS: AST(SGOT) 22 U/L (<=31); Alanine Aminotransfer ALT/SGPT 21 U/L (<=34); Albumin, Serum 4.1 g/dL (3.4-4.8); Alkaline Phosphatase 67 U/L (35-104); Anion Gap 9 (5-15); BUN 22 mg/dL (4-19); BUN/Creat Ratio 44.0 RATIO (10-20); Calcium,Total 9.2 mg/dL (7.6-11.0); Carbon Dioxide 24.8 mmol/L (21.0-32.0); Chloride 104 mmol/L (98-108); Globulin 2.4 g/dL (2.2-4.2); Glucose 113 mg/dL (70-99); Potassium 4.8 mmol/L (3.3-5.1)
[2025-05-31 00:36] LABS: Xtra Tube Kwok EXTRA TUBE
== END | disposition home or self-care (01) ==
LOC: POLAB3 16:31
PROVIDERS: PCP Family Medicine Geriatric Medicine; Visit Provider Family Medicine Geriatric Medicine
DX: E78.5 Hyperlipidemia, unspecified (principal); E55.9 Vitamin D deficiency, unspecified; I10 Essential (primary) hypertension
CPT/HCPCS: 36415; 80053; 80061; 82306; 84443; 85025